=== PATIENT | male | born 1935 | race Caucasian/White ===

== ENCOUNTER 2018-01-10 08:21 | Day surgery (SDC) | payer MEDICARE, OTHER ==
[2018-01-09 09:40] VITALS: BMI 26.9
[2018-01-10 08:40] VITALS: BP 132/75; RESP 20; TEMP 98.1
[2018-01-10 09:54] VITALS: PULSE 50
== END 2018-01-10 09:40 | disposition home or self-care (01) ==
LOC: CATHCVL 08:21
PROVIDERS: ATTEND Radiology Diagnostic Radiology
DX: N39.0 Urinary tract infection, site not specified (principal); B96.20 Unspecified Escherichia coli [E. coli] as the cause of diseases classified elsewhere; Z16.24 Resistance to multiple antibiotics; K21.9 Gastro-esophageal reflux disease without esophagitis; I10 Essential (primary) hypertension; E03.9 Hypothyroidism, unspecified; N40.0 Benign prostatic hyperplasia without lower urinary tract symptoms; Z79.899 Other long term (current) drug therapy; Z53.8 Procedure and treatment not carried out for other reasons
CPT/HCPCS: 36571; 00000; C1751; 0

== ENCOUNTER → 2018-04-20 | Day surgery (SDC) | payer MEDICARE, OTHER | LOC: CATHCVL 11:18 | DX: A49.8 Other bacterial infections of unspecified site (principal) | CPT/HCPCS: 36569; 76937; C1751; 0 ==

== ENCOUNTER → 2018-05-16 | Outpatient (CLI) | payer MEDICARE, OTHER ==
[2018-05-16 12:41] LABS: Appearance,Urine Clear (Clear); Bilirubin,Urine Negative (Negative); Blood,Urine Negative (Negative); Color,Urine Yellow; Glucose,Urine (UA) Negative (Negative); Ketones,Urine Negative (Negative); Leukocyte Esterase,Urine Small (Negative); Mucus,Urine Rare /hpf; Nitrite,Urine Negative (Negative); PH, Urine 6.5 (5.0-8.0); Protein,Urine Negative (Negative); RBC,Urine 5 /hpf (0-5); Specific Gravity,Urine 1.016 (1.001-1.035); Urobilinogen,Urine <2.0 mg/dL (<2.0); WBC,Urine 14 /hpf (0-5)
== END | disposition home or self-care (01) ==
LOC: LABWHC1 12:11
PROVIDERS: ATTEND Internal Medicine Infectious Disease
DX: N39.0 Urinary tract infection, site not specified (principal)
CPT/HCPCS: 81001; 87086

== ENCOUNTER 2018-10-16 12:41 | Inpatient (IN) | payer MEDICARE, OTHER ==
[2018-10-16] MEDS ORDERED: KETOROLAC 60 MG/2 ML VIAL IM STA (14:07)
--- NOTE | 2018-10-16 14:24 | ED ---
Back Pain HPI <Raul Larkin - Last Filed: 10/16/18 20:21> - General Source: patient, RN notes reviewed, old records reviewed Limitations: no limitations <Alfred Chapa - Last Filed: 10/17/18 01:12> - General Chief Complaint: Back Pain/Injury Stated Complaint: Back pain - History of Present Illness Initial Comments: 82-year-old male patient with past medical history of hypertension, sciatica presents in ED with low back pain approximately 2 weeks. Patient denies a history of back pain. Patient denies any recent falls, heavy lifting, trauma. Patient has not been previously evaluated for this issue. Patient states that approximately 2 weeks his back began bothering him. Patient was previously ambulatory without assistance. Patient now uses walker to ambulate. Patient states that he ambulates he has pain in his lumbar spine. Patient states that the pain sometimes radiates to his right buttock when he walks. Patient denies any new weakness, paresthesias, loss of bowel and bladder control, saddle anesthesias. Patient denies any trauma. Patient denies history of IV drug use. Patient was previously treated for a UTI approximately 10 days ago, patient recently completed a prescription of Macrobid for this problem. Patient currently denies any urinary complaints. Patient states that he has been having some fevers and chills since onset of UTI. Patient currently afebrile in ED. Patient denies chest pain, shortness of breath, abdominal pain , nausea vomiting diarrhea. Systemic: Pt denies fatigue, myalgia, rash. Pt denies weakness, night sweats, weight loss. Neuro: Pt denies headache, visual disturbances, syncope or pre-syncope. HEENT: Pt denies ocular discharge or irritation, otalgia, rhinorrhea, pharyngitis or notable lymphadenopathy. Cardiopulmonary: Pt denies chest pain, SOB, heart palpitations, dyspnea on exertion. Abdominal/GI: Pt denies abdominal pain, n/v/d. : Pt denies dysuria, burning w/ urination, frequency/urgency. Denies new onset urinary or bowel incontinence. MSK: Pt denies myalgia, loss of strength or function in extremities. (Alfred Chapa) - Related Data Home Medications Medication Instructions Recorded Confirmed Atenolol [Tenormin] 25 mg PO DAILY 01/09/18 10/16/18 Cholecalciferol [Vitamin D3] 1,000 unit PO DAILY 01/09/18 10/16/18 Levothyroxine Sodium [Synthroid] 100 mcg PO DAILY 01/09/18 10/16/18 Pantoprazole Sodium [Protonix] 40 mg PO DAILY 01/09/18 10/16/18 Tamsulosin HCl [Flomax] 0.4 mg PO DAILY 01/09/18 10/16/18 Triamterene-Hctz 37.5-25Mg 1 cap PO DAILY 01/09/18 10/16/18 [Dyazide 37.5-25 Capsule] amLODIPine [Norvasc] 10 mg PO DAILY 01/09/18 10/16/18 Allergies Allergy/AdvReac Type Severity Reaction Status Date / Time No Known Allergies Allergy Verified 10/16/18 21:13 Review of Systems ROS Other: All systems not noted in ROS Statement are negative. <Raul Lakrin - Last Filed: 10/16/18 20:21> ROS Other: All systems not noted in ROS Statement are negative. <Alfred Chapa - Last Filed: 10/17/18 01:12> ROS Statement: Those systems with pertinent positive or pertinent negative responses have been documented in the HPI. Past Medical History Past Medical History: Cancer, GERD/Reflux, Hypertension, Prostate Disorder, Thyroid Disorder Additional Past Medical History / Comment(s): SKIN CANCER. CURRENT UTI History of Any Multi-Drug Resistant Organisms: Other MDRO Past Surgical History: Adenoidectomy, Hernia Repair, Joint Replacement, Prostate Surgery, Tonsillectomy Additional Past Surgical History / Comment(s): PARATHYROID SX. ESOPHAGEAL SX FOR ACHALASIA. VARICOSE VEIN SX. BILAT CATARAT SX. COLONOSCOPY Past Anesthesia/Blood Transfusion Reactions: No Reported Reaction Past Psychological History: No Psychological Hx Reported Smoking Status: Never smoker Past Alcohol Use History: Rare Past Drug Use History: None Reported - Past Family History Mother Family Medical History: Cancer Additional Family Medical History / Comment(s): COLON <Alfred Chapa - Last Filed: 10/17/18 01:12> General Exam <Raul Larkin - Last Filed: 10/16/18 20:21> Limitations: no limitations <Alfred Chapa - Last Filed: 10/17/18 01:12> - General Exam Comments Initial Comments: Constitutional: NAD, AOX3, Pt has pleasant affect. HEENT: NC/AT, trachea midline, neck supple, no lymphadenopathy. Posterior pharynx non erythematous, without exudates. External ears appear normal, without discharge. Mucous membranes moist. Eyes PERRLA, EOM intact. There is no scleral icterus. No pallor noted. Cardiopulmonary: RRR, no murmurs, rubs or gallops, no JVD noted. Lungs CTAB in anterior and posterior morgan. No peripheral edema. Abdominal exam: Abdomen soft and non-distended. Abdomen non-tender to palpation in all 4 quadrants. Bowel sounds active in LLQ. No hepatosplenomegaly. Ventral and umbilical hernia noted, patient states that these are baseline. Neuro: CN II-XII grossly intact. MSK: Cervical, thoracic, lumbar spine nontender to palpation, paraspinal areas also nontender to palpation. No erythema, ecchymoses, warmth, streaking. Patient psoas, quadriceps strength 5/5. Patient patellar/Achilles reflexes 2 out of 4. Posterior tibialis pulse +2 bilaterally. Patient ambulatory. Patient lower extremity sensation intact. Right straight leg raise positive. (Alfred Chapa) Course <Raul Larkin - Last Filed: 10/16/18 20:21> <Alfred Chapa - Last Filed: 10/17/18 01:12> Vital Signs 10/16/18 10/16/18 10/16/18 13:12 16:00 18:10 Temperature 98.5 F 100.1 F H 100.2 F H Pulse Rate 75 72 70 Respiratory 18 16 16 Rate Blood Pressure 134/66 96/50 96/59 O2 Sat by Pulse 99 96 98 Oximetry 10/16/18 10/16/18 10/16/18 21:00 22:00 22:54 Temperature 102 F H 100.8 F H Pulse Rate 83 81 83 Respiratory 16 16 18 Rate Blood Pressure 128/65 136/74 111/67 O2 Sat by Pulse 94 L 95 94 L Oximetry - Reevaluation(s) Reevaluation #1: 10/16/18 20:21 Patient reevaluated by myself, Dr. Larkin. Patient resting comfortably in bed. Patient reevaluated. Patient and family updated on results and plan. Case was discussed in detail with Dr. Minor, who will admit for hospital call. Case also discussed in detail with Dr. Hart, who will consult. He does agree with heparinization. I did review and agree with paulino findings. This includes all diagnostic interpretations and treatment plan. (Raul Larkin) Medical Decision Making - Lab Data Result diagrams: 10/16/18 15:30 10/16/18 15:30 <Raul Larkin - Last Filed: 10/16/18 20:21> - Lab Data Result diagrams: 10/16/18 15:30 10/16/18 15:30 - EKG Data -: EKG Interpreted by Me <Alfred Chapa - Last Filed: 10/17/18 01:12> - Medical Decision Making 83-year-old male patient presents to ED with approximately 2 weeks of lumbar back pain has gotten worse in the last 5 days. Patient denies any recent falls , trauma, strenuous lifting. Patient states that the lumbar back pain sometimes radiates to his right gluteal area while ambulating. Physical exam revealed Cervical, thoracic, lumbar spine nontender to palpation, paraspinal areas also nontender to palpation. No erythema, ecchymoses, warmth, streaking. Patient psoas, quadriceps strength 5/5. Patient patellar/Achilles reflexes 2 out of 4. Posterior tibialis pulse +2 bilaterally. Patient ambulatory. Patient lower extremity sensation intact. Right straight leg raise positive. Physical exam of HEENT, cardiopulmonary, neuro, abdominal does not reveal acute pathology. Urinalysis revealed 105 red cells. CBC and CMP were not impressive. A CT of the abdomen and pelvis with contrast was ordered. This EKG displayed a large prosthetic mass, a thrombus in the IVC, and lesion on the liver. Patient to be admitted to Dr. Minor. Patient was started on high-dose heparin for IVC thrombus. Patient states she did not have any chest pain, shortness of breath, pleuritic chest pain. A EKG displayed sinus rhythm with first-degree AV block, right bundle-branch block, but no other signs of pathology. Patient admitted in the hospital. Case discussed in depth with Dr. Minor. (Alfred Chapa) - Lab Data Lab Results 10/16/18 10/16/18 10/16/18 Range/Units 14:40 15:30 15:30 WBC 10.0 (3.8-10.6) k/uL RBC 4.12 L (4.30-5.90) m/uL Hgb 12.5 L (13.0-17.5) gm/dL Hct 36.2 L (39.0-53.0) % MCV 87.9 (80.0-100.0) fL MCH 30.4 (25.0-35.0) pg MCHC 34.6 (31.0-37.0) g/dL RDW 14.3 (11.5-15.5) % Plt Count 402 (150-450) k/uL Neutrophils % 82 % Lymphocytes % 9 % Monocytes % 6 % Eosinophils % 1 % Basophils % 0 % Neutrophils # 8.2 H (1.3-7.7) k/uL Lymphocytes # 0.9 L (1.0-4.8) k/uL Monocytes # 0.6 (0-1.0) k/uL Eosinophils # 0.1 (0-0.7) k/uL Basophils # 0.0 (0-0.2) k/uL PT (9.0-12.0) sec INR (<1.2) APTT (22.0-30.0) sec Sodium 136 L (137-145) mmol/L Potassium 4.5 (3.5-5.1) mmol/L Chloride 105 (98-107) mmol/L Carbon Dioxide 24 (22-30) mmol/L Anion Gap 7 mmol/L BUN 19 (9-20) mg/dL Creatinine 0.84 (0.66-1.25) mg/dL Est GFR (CKD-EPI)AfAm >90 (>60 ml/min/1.73 sqM) Est GFR (CKD-EPI)NonAf 81 (>60 ml/min/1.73 sqM) Glucose 108 H (74-99) mg/dL Calcium 9.5 (8.4-10.2) mg/dL Total Bilirubin 1.0 (0.2-1.3) mg/dL AST 52 (17-59) U/L ALT 79 H (21-72) U/L Alkaline Phosphatase 167 H (38-126) U/L Total Protein 6.8 (6.3-8.2) g/dL Albumin 3.0 L (3.5-5.0) g/dL Urine Color Yellow Urine Appearance Clear (Clear) Urine pH 6.5 (5.0-8.0) Ur Specific [place] 1.016 (1.001-1.035) Urine Protein 1+ H (Negative) Urine Glucose (UA) Negative (Negative) Urine Ketones Negative (Negative) Urine Blood Moderate H (Negative) Urine Nitrite Negative (Negative) Urine Bilirubin Negative (Negative) Urine Urobilinogen 2.0 (<2.0) mg/dL Ur Leukocyte Esterase Negative (Negative) Urine RBC 105 H (0-5) /hpf Urine WBC 3 (0-5) /hpf Ur Squamous Epith Cells <1 (0-4) /hpf Urine Mucus Few H (None) /hpf 10/16/18 Range/Units 15:37 WBC (3.8-10.6) k/uL RBC (4.30-5.90) m/uL Hgb (13.0-17.5) gm/dL Hct (39.0-53.0) % MCV (80.0-100.0) fL MCH (25.0-35.0) pg MCHC (31.0-37.0) g/dL RDW (11.5-15.5) % Plt Count (150-450) k/uL Neutrophils % % Lymphocytes % % Monocytes % % Eosinophils % % Basophils % % Neutrophils # (1.3-7.7) k/uL Lymphocytes # (1.0-4.8) k/uL Monocytes # (0-1.0) k/uL Eosinophils # (0-0.7) k/uL Basophils # (0-0.2) k/uL PT 10.5 (9.0-12.0) sec INR 1.1 (<1.2) APTT 24.7 (22.0-30.0) sec Sodium (137-145) mmol/L Potassium (3.5-5.1) mmol/L Chloride (98-107) mmol/L Carbon Dioxide (22-30) mmol/L Anion Gap mmol/L BUN (9-20) mg/dL Creatinine (0.66-1.25) mg/dL Est GFR (CKD-EPI)AfAm (>60 ml/min/1.73 sqM) Est GFR (CKD-EPI)NonAf (>60 ml/min/1.73 sqM) Glucose (74-99) mg/dL Calcium (8.4-10.2) mg/dL Total Bilirubin (0.2-1.3) mg/dL AST (17-59) U/L ALT (21-72) U/L Alkaline Phosphatase (38-126) U/L Total Protein (6.3-8.2) g/dL Albumin (3.5-5.0) g/dL Urine Color Urine Appearance (Clear) Urine pH (5.0-8.0) Ur Specific [place] (1.001-1.035) Urine Protein (Negative) Urine Glucose (UA) (Negative) Urine Ketones (Negative) Urine Blood (Negative) Urine Nitrite (Negative) Urine Bilirubin (Negative) Urine Urobilinogen (<2.0) mg/dL Ur Leukocyte Esterase (Negative) Urine RBC (0-5) /hpf Urine WBC (0-5) /hpf Ur Squamous Epith Cells (0-4) /hpf Urine Mucus (None) /hpf - EKG Data EKG Comments: Ventricular rate 76, RI interval 2:30, QRS 152, QT/QTC 392/441. Sinus rhythm with first-degree AV block. Right bundle branch block. No concerns for acute ischemia. (Alfred Chapa) Disposition <Raul Larkin - Last Filed: 10/16/18 20:21> <Alfred Chapa - Last Filed: 10/17/18 01:12> Clinical Impression: Inferior vena cava thromboembolism Disposition: ADMITTED IP TO THIS [facility] Condition: Good
[2018-10-16 15:04] LABS: Appearance,Urine Clear (Clear); Bilirubin,Urine Negative (Negative); Blood,Urine Moderate (Negative); Color,Urine Yellow; Glucose,Urine (UA) Negative (Negative); Ketones,Urine Negative (Negative); Leukocyte Esterase,Urine Negative (Negative); Mucus,Urine Few /hpf; Nitrite,Urine Negative (Negative); PH, Urine 6.5 (5.0-8.0); Protein,Urine 1+ (Negative); RBC,Urine 105 /hpf (0-5); Specific Gravity,Urine 1.016 (1.001-1.035); Squamous Epithelial Cell,Urine <1 /hpf (0-4)
--- NOTE | 2018-10-16 15:23 | XR ---
EXAM TYPE: LUMBAR SPINE X RAY SERIES COMPARISON: NONE HISTORY: Lower back pain TECHNIQUE: 4 views are submitted. FINDINGS: Alignment is anatomic. The pedicles are intact. The transverse processes are intact. There is grad e 1 anterolisthesis L4 and L5 with multilevel moderate degenerative disc disease and severe changes a t L5-S1. Facet arthropathy noted with most marked findings at L4-5 and L5-S1. Hypertrophic spurring a nteriorly noted. Nonspecific punctate calcifications in the left upper quadrant could be related to splenic granuloma or possibly the pancreas. Diffuse osteopenia noted. IMPRESSION: 1. Multilevel degenerative disc disease and facet arthropathy with grade 1 anterolisthesis L4 on L5.
[2018-10-16] MEDS ORDERED: SODIUM CHLORIDE 0.9% 500 ML 500 ML IV STA ×2 (15:55→16:35)
[2018-10-16] MEDS ORDERED: SODIUM CHLORIDE 0.9% 1,000 ML IV STA (15:55)
[2018-10-16 15:56] LABS: Basophils % (A) 0 %; Eosinophils # (A) 0.1 k/uL (0-0.7); Eosinophils % (A) 1 %; HCT 36.2 % (39.0-53.0); HGB 12.5 gm/dL (13.0-17.5); Lymphocytes # (A) 0.9 k/uL (1.0-4.8); Lymphocytes % (A) 9 %; MCH 30.4 pg (25.0-35.0); MCHC 34.6 g/dL (31.0-37.0); MCV 87.9 fL (80.0-100.0); Monocytes # (A) 0.6 k/uL (0-1.0); Monocytes % (A) 6 %; Neutrophils # (A) 8.2 k/uL (1.3-7.7); Neutrophils % (A) 82 %; Platelet Count 402 k/uL (150-450); RBC 4.12 m/uL (4.30-5.90); RDW 14.3 % (11.5-15.5)
[2018-10-16 16:05] LABS: ALT 79 U/L (21-72); AST 52 U/L (17-59); Alkaline Phosphatase 167 U/L (38-126); Anion Gap 7 mmol/L; Blood Urea Nitrogen 19 mg/dL (9-20); Calcium 9.5 mg/dL (8.4-10.2); Carbon Dioxide 24 mmol/L (22-30); Chloride 105 mmol/L (98-107); Glucose 108 mg/dL (74-99); Potassium 4.5 mmol/L (3.5-5.1); Sodium 136 mmol/L (137-145); Total Protein 6.8 g/dL (6.3-8.2)
--- NOTE | 2018-10-16 18:24 | CT ---
EXAMINATION TYPE: CT abdomen pelvis w con DATE OF EXAM: 10/16/2018 COMPARISON: None HISTORY: Back pain. CT DLP: 980.6 mGycm Automated exposure control for dose reduction was used. TECHNIQUE: Helical acquisition of images was performed from the lung bases through the pelvis. CONTRAST: Performed without Oral Contrast and with IV Contrast, patient injected with 100 mL of Isovu e M300. FINDINGS: LUNG BASES: No significant abnormality is appreciated. LIVER: There is moderate heterogeneity throughout the liver, with a 4 cm rounded subtle lesion high i n the posterior segment of the right hepatic lobe. Would suggest MRI characterization, without and wi th contrast. BILIARY SYSTEM: Negative PANCREAS: No significant abnormality is seen. SPLEEN: No significant abnormality is seen. ADRENALS: No significant abnormality is seen. KIDNEYS: No significant abnormality is seen. FREE AIR: No free air is visualized. RETROPERITONEAL ADENOPATHY: None visualized REPRODUCTIVE ORGANS: The prostate is markedly enlarged and heterogeneous, measuring 8 cm diameter. Th e urinary bladder is moderately-markedly distended, rising up out of the pelvis to nearly the umbilic us level. URINARY BLADDER: No significant abnormality is seen. PELVIC ADENOPATHY: None visualized. OSSEOUS STRUCTURES: No acute finding. BOWEL: No significant abnormality is seen. VASCULATURE: There is pre-occlusive/occlusive filling defect throughout the lumen of the left common iliac vein, the lowermost IVC, and throughout the right common iliac vein. Venous Doppler ultrasound, or MRI, characterization can be complimentary in the workup of this patient - to determine the full extent of the thrombus burden within the pelvic venous structures. IMPRESSION: 1) IVC AND BILATERAL ILIAC VENOUS THROMBUS. 2) BLADDER OUTLET OBSTRUCTION PATTERN. 3) 4 CM LIVER LESION. Results discussed with the ordering provider just now.
--- NOTE | 2018-10-16 19:48 | XR ---
EXAMINATION: XR chest 2V DATE AND TIME: 10/16/2018 6:36 PM CLINICAL INDICATION: Pain TECHNIQUE: PA and lateral COMPARISON: None. FINDINGS: The lungs are clear. The pleural spaces are negative. The cardiac silhouette is not enlarged. The remainder of the mediastinal silhouette is unremarkable. The skeletal structures and soft tissues are negative for acute findings. IMPRESSION: NO ACUTE PROCESS.
[2018-10-16] MEDS ORDERED: HEPARIN SODIUM,PORCINE 5,000 UNIT/ML 1 ML VIAL IV ONE (20:14)
[2018-10-16] MEDS ORDERED: HYDROmorphone 1 MG/ML 1 ML SYRINGE IVP PRN (20:17)
[2018-10-16] MEDS ORDERED: NALOXONE 0.4 MG/ML 1 ML VIAL IV PRN (20:17)
[2018-10-16] MEDS ORDERED: MORPHINE SULFATE 4 MG/ML SYRINGE IV STA (20:20)
[2018-10-16] MEDS: HEPARIN SOD,PORK IN 0.45% NACL 25,000 UNIT in 0.45% NACL 1 500ML.BAG IV SCH (21:03)
[2018-10-16 21:23] LABS: INR 1.1 (<1.2); Partial Thromboplastin Time 24.7 sec (22.0-30.0); Prothrombin Time 10.5 sec (9.0-12.0)
[2018-10-16] MEDS ORDERED: ALPRAZolam 0.25 MG TAB PO PRN (21:26)
[2018-10-16] MEDS ORDERED: MELATONIN 3 MG TABLET PO PRN (21:26)
[2018-10-16] MEDS ORDERED: TEMAZEPAM 15 MG CAP PO PRN (21:26)
[2018-10-16] MEDS ORDERED: ACETAMINOPHEN TAB 325 MG TAB PO STA (21:42)
--- NOTE | 2018-10-16 22:26 | US ---
US VENOUS DOPPLER DUPLEX BILATERAL LOWER EXTREMITY DATE OF EXAM: 10/16/2018 8:34 PM COMPARISON: NONE CLINICAL HISTORY: Pain. SIDE PERFORMED: Bilateral TECHNIQUE: The lower extremity deep venous system is examined utilizing real time linear array sonog marsha with graded compression, doppler sonography and color-flow sonography. VESSELS IMAGED: External Iliac Vein (EIV) Common Femoral Vein Deep Femoral Vein Greater Saphenous Vein * Femoral Vein Popliteal Vein Small Saphenous Vein * Proximal Calf Veins (* superficial vessels) FINDINGS: Grayscale, color doppler, spectral doppler imaging performed of the deep veins of the lower extremities. There is normal flow, compressibility, vascular waveforms. IMPRESSION: NEGATIVE FOR DVT, BILATERAL LOWER EXTREMITIES.
--- NOTE | 2018-10-16 22:34 | HP ---
HISTORY AND PHYSICAL CHIEF COMPLAINT: Back pain. HISTORY OF PRESENT ILLNESS: This 83-year-old gentleman with a past history of hypertension, history of prostate disorder, history of skin cancer, history of parathyroid surgery, esophageal surgery for achalasia, being followed by Dr. Rodrigues in [facility], was complaining of UTI for the last 2 weeks. Patient is on Macrobid for the last 1 week. Patient is also complaining of back pain in the lower part of the back, radiating to the right side. Because of multiple difficulties, the patient came to [facility] and was admitted for evaluation and treatment. In the [facility] Emergency Room , the patient underwent a CT scan of the abdomen and pelvis, showed IVC and bilateral iliac vein thrombosis, bladder outlet obstruction, and 4 cm liver lesion also. The patient was admitted for further evaluation and treatment. There is no history of fevers or rigors. No history of headache, loss of consciousness, seizures. PAST MEDICAL HISTORY: History of GERD, hypertension, history of prostate disorder, history of adenoidectomy, parathyroidectomy surgery, esophageal surgery for achalasia. MEDICATIONS: Prior to admission include home medications of: 1. Flomax 0.4 daily. 2. Protonix 40 mg p.o. daily. 3. Norvasc 10 mg p.o. daily. 4. Dyazide 37.5/25 p.o. daily. 5. Synthroid 100 mcg daily. 6. Vitamin D 3000 units. 7. Tenormin 25 mg daily. ALLERGIES: None. FAMILY HISTORY: History of colon cancer in the family. SOCIAL HISTORY: No history of smoking. Occasional alcohol intake. REVIEW OF SYSTEMS: ENT: No diminished hearing or vision. CARDIOVASCULAR: No angina. RESPIRATORY: As mentioned earlier. GI: No nausea. : No dysuria. NERVOUS SYSTEM: As mentioned. ALLERGY/IMMUNOLOGY: No asthma or hayfever. MUSCULOSKELETAL: As mentioned. HEMATOLOGY: As mentioned earlier. ENDOCRINE: No history of hypothyroidism. No history of diabetes. CONSTITUTIONAL: As mentioned earlier. DERMATOLOGY: As mentioned. PSYCH: As mentioned. PHYSICAL EXAMINATION: Alert, oriented x3. Pulse is 70, blood pressure 90/59, respirations 16, temperature 100.2, pulse ox 98% on room air. HEENT: Conjunctivae normal. Oral mucosa moist. NECK: No jugular venous distention. No lymph node enlargement. CARDIOVASCULAR SYSTEM: S1, S2 muffled. RESPIRATORY SYSTEM: Breath sounds diminished at the bases. Few scattered rhonchi and crackles. ABDOMEN: Soft, no mass palpable. Mild diffuse discomfort in the , otherwise no guarding or rigidity. No mass. No ascites. LEGS: No edema, no swelling. NERVOUS SYSTEM: Higher functions as mentioned earlier. Moves all 4 limbs. No focal motor deficits. LYMPHATICS: No lymph nodes palpable in the neck, axillae or groin. SKIN: No rashes. BACK: Minimal tenderness in the lower part. Sores on the legs. Diffuse minimal wasting also present. LABS: WBC 10, hemoglobin 12.5, sodium 136. UA shows 105 RBCs. No WBC. ASSESSMENT: 1. 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 2. Back pain, for evaluation. 3. Fever, for evaluation. 4. Increased ALT and alkaline phosphatase. 5. 4 cm liver lesion for evaluation. 6. Hyponatremia. 7. History of recent urinary tract infection, on antibiotics. 8. Gastroesophageal reflux disease. 9. Hypertension. 10.History of prostate disorder. 11.History of hypothyroidism. 12.History of adenoidectomy. 13.History of degenerative joint disease. 14.History of parathyroid surgery. 15.History of esophageal surgery for Dr. mendoza. 16.History of varicose veins. 17.Bilateral cataracts. 18.FULL CODE. RECOMMENDATIONS AND DISCUSSION: This 83-year-old gentleman who presented with multiple complex medical issues, we will monitor the patient closely, continue the current management and symptomatic treatment. At this time I recommend continue with the current medications. We will obtain the cultures and initiate empiric antibiotics. Otherwise also obtain Hematology/ Oncology evaluation for further evaluation. Otherwise, IV heparin. Prognosis guarded because of multiple complex medical issues. Further recommendations to follow. The liver lesion also will need continued followup also. Prognosis guarded. Further recommendations will be made depending on clinical course. MMODL / IJN: [id number] / [facility]
[2018-10-17 04:06] VITALS: BMI 27.8
[2018-10-17] MEDS: HEPARIN SODIUM,PORCINE 5,000 UNIT/ML 1 ML VIAL IV PRN ×3 (04:23→21:51)
[2018-10-17] MEDS: LEVOTHYROXINE 100 MCG TAB PO SCH (06:08)
[2018-10-17] MEDS: HYDROcodone/APAP 5-325MG 1 EACH TAB PO PRN ×3 (06:08→20:33)
[2018-10-17] MEDS: amLODIPine 10 MG TAB PO SCH (09:43)
[2018-10-17] MEDS: PANTOPRAZOLE 40 MG TABLET PO SCH (09:43)
[2018-10-17] MEDS: CHOLECALCIFEROL 1,000 UNIT TAB PO SCH (09:44)
[2018-10-17] MEDS: TRIAMTERENE-HCTZ 37.5-25MG 1 EACH CAP PO SCH (09:44)
[2018-10-17] MEDS: ACETAMINOPHEN TAB 325 MG TAB PO PRN ×2 (09:44→23:57)
[2018-10-17] MEDS: ATENOLOL 25 MG TAB PO SCH (09:44)
[2018-10-17] MEDS: TAMSULOSIN 0.4 MG CAP.ER.24H PO SCH (09:44)
[2018-10-17 10:07] LABS: Basophils % (A) 0 %; Eosinophils % (A) 0 %; HCT 32.7 % (39.0-53.0); HGB 10.9 gm/dL (13.0-17.5); Lymphocytes # (A) 0.9 k/uL (1.0-4.8); Lymphocytes % (A) 11 %; MCH 29.6 pg (25.0-35.0); MCHC 33.3 g/dL (31.0-37.0); MCV 88.9 fL (80.0-100.0); Mean Platelet Volume 6.9; Monocytes # (A) 0.4 k/uL (0-1.0); Monocytes % (A) 5 %; Neutrophils # (A) 6.7 k/uL (1.3-7.7); Neutrophils % (A) 81 %; Platelet Count 343 k/uL (150-450); RBC 3.67 m/uL (4.30-5.90); RDW 14.2 % (11.5-15.5); WBC 8.2 k/uL (3.8-10.6)
[2018-10-17 10:37] LABS: ALT 62 U/L (21-72); AST 38 U/L (17-59); Albumin 2.5 g/dL (3.5-5.0); Alkaline Phosphatase 136 U/L (38-126); Anion Gap 7 mmol/L; Blood Urea Nitrogen 16 mg/dL (9-20); Calcium 8.9 mg/dL (8.4-10.2); Carbon Dioxide 24 mmol/L (22-30); Chloride 104 mmol/L (98-107); Glucose 110 mg/dL (74-99); Potassium 4.2 mmol/L (3.5-5.1); Sodium 135 mmol/L (137-145); Total Bilirubin 1.3 mg/dL (0.2-1.3); Total Protein 5.9 g/dL (6.3-8.2)
[2018-10-17] MEDS: HEPARIN SOD,PORK IN 0.45% NACL 25,000 UNIT in 0.45% NACL 1 500ML.BAG IV SCH (12:05)
[2018-10-17] MEDS: SODIUM CHLORIDE 0.9% 1,000 ML IV SCH (14:00)
[2018-10-17 15:40] LABS: Appearance,Urine Cloudy (Clear); Bacteria,Urine Occasional /hpf; Bilirubin,Urine Negative (Negative); Blood,Urine Small (Negative); Color,Urine Yellow; Glucose,Urine (UA) Negative (Negative); Ketones,Urine Negative (Negative); Leukocyte Esterase,Urine Moderate (Negative); Mucus,Urine Rare /hpf; Nitrite,Urine Negative (Negative); Protein,Urine Negative (Negative); RBC,Urine 5 /hpf (0-5); Specific Gravity,Urine 1.012 (1.001-1.035); WBC,Urine 58 /hpf (0-5)
[2018-10-17] MEDS: MEROPENEM 1 GM in SODIUM CHLORIDE 0.9% 100 ML IVPB SCH ×2 (16:58→23:56)
[2018-10-17] MEDS: HYDROmorphone 1 MG/ML 1 ML SYRINGE IVP PRN (17:38)
--- NOTE | 2018-10-17 18:39 | PN ---
PROGRESS NOTE DATE OF SERVICE: 10/17/2018 This 83-year-old gentleman admitted with back pain, had significant thrombosis of the inferior vena cava and bilateral iliac veins also. The patient is on IV heparin. Patient also had multiple other medical issues including liver lesion. Patient also had some fever also. Cultures are pending at this time. The patient is being closely monitored. The pain is slightly better with medications. Patient also had back pain, significant back pain also. UA showed evidence of UTI. PAST MEDICAL HISTORY: Reviewed. REVIEW OF SYSTEMS: CARDIOVASCULAR: No angina. RESPIRATORY: As mentioned. GI: As mentioned earlier. : No dysuria. CENTRAL NERVOUS SYSTEM: No numbness, weakness. CURRENT MEDICATIONS ARE: Reviewed and include: 1. Tylenol 650 q.6h p.r.n. 2. [place] 5 mg p.o. daily. 3. Xanax 0.5 t.i.d. 4. Norvasc 10 mg daily. 5. Tenormin 25 mg. 6. Vitamin D 3000 daily. 7. Heparin drip. 8. Dilaudid 0.25 mg q.3 p.r.n. 9. Synthroid. 10.Melatonin. 11.Meropenem 1 g IV q.8h. 12.Narcan. 13.Protonix. 14.Flomax. 15.Restoril. 16.Dyazide. PHYSICAL EXAMINATION: Alert and oriented x3. Pulse is 68. Blood pressure 105/60, respirations 17, temperature 101.3, pulse ox 98% on room air. HEENT: Conjunctivae normal. Oral mucosa moist. Neck is no jugular venous distention. No carotid bruit. No lymph node enlargement. CARDIOVASCULAR SYSTEM: S1, S2 muffled. RESPIRATORY SYSTEM: Breath sounds diminished at the bases. A few scattered rhonchi and crackles. ABDOMEN: Soft, nontender. No mass palpable. Legs: No edema. No swelling. NERVOUS SYSTEM: Higher functions as mentioned earlier. Moves all four limbs. No focal or motor deficits. Lymphatics: No lymph nodes palpable in the neck, axillae or groin. Skin: No ulcer, rash, bleeding. LABS: Labs at this time: WBC 8.2, hemoglobin 10.9, and APTT 36.2. Sodium 135, albumin is 2.5 UA noted. ASSESSMENT: 1. Acute deep vein thrombosis of the IVC and as well as bilateral iliac vein thrombosis. 2. Back pain for evaluation. 3. Acute urinary tract infection with fever possibly. 4. Increased ALT, alkaline phosphatase. 5. 4 cm liver lesion for evaluation. 6. Hyponatremia. 7. History of recent urinary tract infection on antibiotics. 8. History of gastroesophageal reflux disease. 9. Hypertension. 10.History of prostate disorder. 11.History of hypothyroidism. 12.History of adenoidectomy. 13.History of degenerative joint disease. 14.History of parathyroid surgery. 15.History of esophageal surgery for achalasia. 16.History of varicose veins. 17.Bilateral cataracts. 18.FULL CODE. RECOMMENDATIONS AND DISCUSSION: In this 83-year-old gentleman who presented with multiple complex medical issues, we will monitor the patient closely. Continue the current medications, management and symptomatic treatment. Otherwise, at this time, continue with IV heparin. I would also recommend IV Rocephin for antibiotics. Follow the cultures. Follow closely with multiple consultants. Also recommend evaluation by Dr. Kirby. MRI of the back and the liver also will be ordered. I would also recommend a CT angio chest also ordered and guarded prognosis because of multiple complex medical issues. Further recommendations to follow. See orders for details. MMODL / IJN: [id number] /
--- NOTE | 2018-10-17 20:28 | MR ---
EXAMINATION TYPE: MR lssandra/sacrum wo con DATE OF EXAM: 10/17/2018 COMPARISON: None HISTORY: Back pain TECHNIQUE: Multiplanar, multisequence imaging of the lumbar spine is performed without IV contrast. FINDINGS: Lumbar vertebra have normal alignment. There is sacral cyst at S2 level. There is slight na rrowing of the lumbar disc spaces. There is a large posterior L4-5 lumbar disc herniation with elevation of the posterior longitudinal l igament. There is resultant moderately severe lumbar spinal stenosis at L4-5. There is hypertrophic m ultilevel lumbar facet arthropathy. There is lateral recess stenosis at L3-4 L2-3 due to facet diseas e. There is posterior mild disc herniation at L1-2 L3-4. There is narrowing of the lumbar neural fora eliu at L4-5 L5-S1 due to facet arthropathy and disc space narrowing. There is no compression fractur e. There is no lumbar paraspinal mass. The sacroiliac joints appear intact. I see no sacral bony dest ructive process. Sacral segments have normal alignment. There is a markedly dilated urinary bladder. Bladder measures 15 cm in height. IMPRESSION: Multilevel spondylosis. There is large extruded posterior disc herniation at L4-5 with moderately sev ere lumbar spinal stenosis. No fracture. Mild lateral recess stenosis at L2-3. There is mild spinal s tenosis at L3-4. Small sacral cysts at S2 level. Markedly enlarged prostate that measures 7.5 cm. Dilated urinary bladder consistent with chronic blad joe outlet obstruction. No fracture seen.
--- NOTE | 2018-10-17 20:42 | CT ---
EXAMINATION TYPE: CT angio chest DATE OF EXAM: 10/17/2018 7:07 PM COMPARISON: None HISTORY: chest pain, SOB CT DLP: 423.3 mGycm Automated exposure control for dose reduction was used. CONTRAST: CTA scan of the thorax is performed with IV Contrast, patient injected with 60 mL of Isovue 370, pulm onary embolism protocol. . There are 3-D post processed images. FINDINGS: There is infiltrate and atelectasis at the lung bases. There are small bilateral pleural effusions. T here is no pericardial effusion. Heart is top normal in size. There is probably fatty infiltration of the liver. Spleen appears normal. There is no adrenal mass. Kidneys show no hydronephrosis. There are large central pulmonary arteries. I see no filling defects in the pulmonary arteries. There are no hilar masses. There is no mediastinal adenopathy. 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 Aorti c arch measures up to 4.4 cm. Descending thoracic aorta measures 3.7 cm. There is spurring in the tho racic spine. I see no bony destructive process. IMPRESSION: NO EVIDENCE OF PULMONARY EMBOLISM. ENLARGED PULMONARY ARTERIES CONSISTENT WITH PULMONARY HYPERTENSION . MILD CARDIOMEGALY. THORACIC AORTIC ANEURYSM. THERE IS INFILTRATE AND ATELECTASIS AND PLEURAL FLUID AT THE LUNG BASES BILATERALLY.
--- NOTE | 2018-10-17 20:57 | MR ---
EXAMINATION TYPE: MR liver wo/w con DATE OF EXAM: 10/17/2018 COMPARISON: CT scan yesterday HISTORY: CONTRAST: Standard multiplanar, multisequence MRI departmental protocol utilizing 7.5 mL intravenous gadolinium contrast. FINDINGS: There is a 4.4 cm somewhat rounded poorly marginated area of slight increased signal in the superior right lobe of the liver. There is a second similar appearing lesion in the central right lo be of the liver that measures 2.3 cm. The bile ducts are not dilated. Spleen appears normal. There is no evidence of a pancreatic mass. There are scattered cysts in the body and tail of the pancreas dominic t measure up to 1.5 cm. The gallbladder appears normal. There is no adrenal mass. Kidneys show satisfactory contrast opacification. There is no hydronephrosi s. There is a 1 cm cortical cyst medial left kidney. There is no evidence of abdominal para-aortic ad enopathy. There is no sign of ascites. There is a nonenhancing 1.5 cm low signal focus in the cortex upper pole right kidney. This could be an atypical cyst. I see no suspicious renal mass. The contrast images show early enhancement of the 2 liver lesions. There is rapid washout on the rafa yed contrast images. There is patchy infiltrate and atelectasis at the lung bases. IMPRESSION: There is demonstration of 2 lesions in the liver. These have early enhancement and rapid washout. Thi s is suspicious for malignancy. This could be metastatic disease. Follow-up is recommended. These do not have features of hemangioma. There is increased pleural fluid and atelectasis at the lung bases compared to CT scan yesterday. Multiple variable sized cysts in the pancreas consistent with chronic pancreatitis and multiple pseud ocysts. Cystic pancreatic tumor cannot be entirely excluded.
--- NOTE | 2018-10-17 22:11 | P.CONS ---
History of Present Illness - Reason for Consult Consult date: 10/17/18 Liver Mass IVC Clot Requesting physician: Alfred Chapa - Chief Complaint Lower Back Pain, Right SIded Weakness - History of Present Illness Griffin is a pleasant 83 year old male who was in his regular state of health up until a few weeks ago. According to him and ( providing much of history ) they took a [address] to [place] approximately 3 weeks ago and stopped every 100 miles and got out of car and walking. He was feeling good and fairly active for 83. He has a known history of BPH and enlarged prostate, underwent multiple prostate biopsies without evidence of malignancy. He underwent a procedure approximately a year ago for his severe urimary retention (requiring self catherizations) and recurrent UTIs. Since a year ago has not had any issues with urination, has not required self catherization and has not been treated for UTI. THey returned from [place] about two weeks ago and he was seen by general practitioner and treated for UTI with Macrobid. His states about 2 days into the macrobid he became more weak, and started to complain of lower back pain. THis continued to progress along with abdominal discomfort and then inability to ambulate without assistance. HIs son also at bedside states he needed to help his father lift his right leg up as he could not lift it to get into car two days ago to come to hospital. Durining intitial evaluation at the hospital CT scan of abdomen and pelvis revealed new thrombus in IVC and Bilateral iliac veins. Heparin drip was initated. ALso on CT suspicious lesion 4cm was identified in liver. BLE dopplers were negative for DVT. Awaiting CTA of Chest to assess for Pulmonary Embolism. On Exam patient is very weak in Lower extremities. RLE was weaker, although left lower extremity appears to have decreased flexion and range of motion. He is laying in bed and states he feels too weak to move. He has had a significant low appetite in the past week, and liekly lost weight from not taking in his normal PO intake. Denies fevers or chills, cough. He complains of lower back pain the radiates down his right leg. Review of Systems A 14 point review of systems assessed and completed and all negative except HPI Past Medical History Past Medical History: Cancer, GERD/Reflux, Hypertension, Prostate Disorder, Thyroid Disorder Additional Past Medical History / Comment(s): SKIN CANCER. CURRENT UTI History of Any Multi-Drug Resistant Organisms: Other MDRO Past Surgical History: Adenoidectomy, Hernia Repair, Joint Replacement, Prostate Surgery, Tonsillectomy Additional Past Surgical History / Comment(s): PARATHYROID SX. ESOPHAGEAL SX FOR ACHALASIA. VARICOSE VEIN SX. BILAT CATARAT SX. COLONOSCOPY Past Anesthesia/Blood Transfusion Reactions: No Reported Reaction Past Psychological History: No Psychological Hx Reported Smoking Status: Never smoker Past Alcohol Use History: Rare Past Drug Use History: None Reported - Past Family History Mother Family Medical History: Cancer Additional Family Medical History / Comment(s): COLON Medications and Allergies Home Medications Medication Instructions Recorded Confirmed Type Atenolol [Tenormin] 25 mg PO DAILY 01/09/18 10/16/18 History Cholecalciferol [Vitamin D3] 1,000 unit PO DAILY 01/09/18 10/16/18 History Levothyroxine Sodium [Synthroid] 100 mcg PO DAILY 01/09/18 10/16/18 History Pantoprazole Sodium [Protonix] 40 mg PO DAILY 01/09/18 10/16/18 History Tamsulosin HCl [Flomax] 0.4 mg PO DAILY 01/09/18 10/16/18 History Triamterene-Hctz 37.5-25Mg 1 cap PO DAILY 01/09/18 10/16/18 History [Dyazide 37.5-25 Capsule] amLODIPine [Norvasc] 10 mg PO DAILY 01/09/18 10/16/18 History Allergies Allergy/AdvReac Type Severity Reaction Status Date / Time No Known Allergies Allergy Verified 10/16/18 21:13 Physical Exam Vitals: Vital Signs Temp Pulse Pulse Resp BP BP Pulse Ox 10/17/18 08:30 100.4 F H 71 15 115/58 90 L 10/17/18 04:00 98.7 F 71 16 113/57 97 10/16/18 23:40 98.7 F 74 16 104/56 93 L 10/16/18 22:54 100.8 F H 83 18 111/67 94 L 10/16/18 22:00 81 16 136/74 95 10/16/18 21:00 102 F H 83 16 128/65 94 L 10/16/18 18:10 100.2 F H 70 16 96/59 98 10/16/18 16:00 100.1 F H 72 16 96/50 96 10/16/18 13:12 98.5 F 75 18 134/66 99 Intake and Output 10/16/18 10/17/18 10/17/18 22:59 06:59 14:59 Intake Total 1238.345 Balance 1238.345 Intake: Intake, IV Titration 838.345 Amount Heparin Sod,Pork in 0.45% 238.345 NaCl 25,000 unit In 0.45 % NaCl 1 500ml.bag @ 18 UNITS/KG/HR 32.65 mls/hr IV .[id number] DIPESH Rx#: [id number] Sodium Chloride 0.9% 1, 600 000 ml @ 75 mls/hr IV . [id number] STA Rx#:[id number] Oral 400 Other: Voiding Method Urinal Urinal Weight 90.5 kg - Constitutional General appearance: cooperative, no acute distress, thin - EENT Eyes: EOMI, dentition normal, normal appearance ENT: hard of hearing, NA/AT, normal oropharynx - Neck supple, no cervical lymphadenopathy Neck: normal ROM - Cardiovascular Rhythm: regular Heart sounds: normal: S1, S2 - Gastrointestinal Bloated tender to palpation, decreased bowel sounds General gastrointestinal: distended, tenderness - Integumentary Integumentary: pale - Neurologic Neurologic: CNII-XII intact - Musculoskeletal Musculoskeletal: generalized weakness, right sided weakness - Psychiatric Lethargic but answers appropriately when questions asked. Psychiatric: A&O x's 3, appropriate affect Results CBC & Chem 7: 10/17/18 09:46 10/17/18 09:46 Labs: Abnormal Lab Results - Last 24 Hours (Table) 10/16/18 10/16/18 10/16/18 Range/Units 14:40 15:30 15:30 RBC 4.12 L (4.30-5.90) m/uL Hgb 12.5 L (13.0-17.5) gm/dL Hct 36.2 L (39.0-53.0) % Neutrophils # 8.2 H (1.3-7.7) k/uL Lymphocytes # 0.9 L (1.0-4.8) k/uL APTT (22.0-30.0) sec Sodium 136 L (137-145) mmol/L Glucose 108 H (74-99) mg/dL ALT 79 H (21-72) U/L Alkaline Phosphatase 167 H (38-126) U/L Albumin 3.0 L (3.5-5.0) g/dL Urine Protein 1+ H (Negative) Urine Blood Moderate H (Negative) Urine RBC 105 H (0-5) /hpf Urine Mucus Few H (None) /hpf 10/17/18 10/17/18 10/17/18 Range/Units 02:11 09:46 09:46 RBC 3.67 L (4.30-5.90) m/uL Hgb 10.9 L (13.0-17.5) gm/dL Hct 32.7 L (39.0-53.0) % Neutrophils # (1.3-7.7) k/uL Lymphocytes # 0.9 L (1.0-4.8) k/uL APTT 41.1 H 36.8 H (22.0-30.0) sec Sodium (137-145) mmol/L Glucose (74-99) mg/dL ALT (21-72) U/L Alkaline Phosphatase (38-126) U/L Albumin (3.5-5.0) g/dL Urine Protein (Negative) Urine Blood (Negative) Urine RBC (0-5) /hpf Urine Mucus (None) /hpf Microbiology - Last 24 Hours (Table) 10/16/18 14:40 Urine Culture - Preliminary Urine,Voided Assessment and Plan Plan: Assessment and Recommendations: 1. New IVC Thrombosis: - BLE Dopplers negative for DVT - CTA negative for Pulmonary EMbolism although revealed bilateral atelectesis, pul htn, and infiltrates 2. Liver Lesions: Concern for malignancy - MRI of the liver reviewed: 2.5cm and 4.0cm liver lesions concerning for a metastatic process, Scattered cystic appearing pancreatic body and tail - Will check a Ca19-9, PSA (Known Enlarged prostate with multiple biopsies all neg in past) - Interventional Radiology consultation for Biosy of Liver Lesions 3. Lower extremity weakness and lower back pain - MRI Reviewed and revealed Large Herniated disc Protrusion L4L5 - ? COnsultation ortho-spine palliative intervention PLan: - COntinue on anticoagulation therapy, will require as outpatient - Await Ca-19-9 and Pathology after biopsy of liver, then can convert to PO anticoagualtion therapy - Pulmonary consultation resonable regarding bilateral atelectasis and infiltrated - Incentive spirometer to bedside and increase activity - Physical therapy to consult and increase activity
--- NOTE | 2018-10-17 23:36 | P.CONS ---
History of Present Illness - Reason for Consult Consult date: 10/17/18 - Chief Complaint Increasing weakness - History of Present Illness 83-year-old male resents to Hospital with increasing weakness, increasing pain to his back and difficulty lifting his leg. The family relates the patient had been on a trip to [place] with frequent stops for ambulation along the way and the return. Had no great difficulties while he was there. He is normally a very active 83-year-old gentleman. However short before admission he started to have a decline of the status partly because of the severe back pain and increasing weakness to the leg. Family finally brought to the emergency center at which point in time it was found that he was acutely ill with a temperature 101.3 and severe back pain. His back pain is being treated and because of this he had imaging studies. 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 Further workup is in process and is being seen by hematology oncology. Because of the difficulties scanning was performed revealing evidence of lesions within the liver which are very concerning given the inferior vena cava thrombosis. The patient is known to the service from his difficulties of urinary tract infection with resistant E. coli from earlier this year. The family physician was concerned about a urinary tract infection and placed on Macrobid with no improvement. With the admission the patient was given his first dose of ceftriaxone. His fever continued and with positive blood cultures antibiotic therapy was enhanced. Multiple imaging studies occurring today. Review of Systems Severe back pain difficulty ambulating fever and weakness HEENT:Denies headache or acute visual change. Denies sinus or mouth discomforts. Denies neck stiffness or pain. Denies significant oral cavity pain. Denies difficulty on swallowing. Lungs: Denies significant shortness of breath, cough, sputum production, or hemoptysis. Cardiovascular: Denies significant shortness of breath, chest pain, chest wall pain, orthopnea, dyspnea on exertion, syncope Gastrointestinal:Denies nausea, vomiting, diarrhea, constipation, hematemesis, melena, hematochezia. No no significant change of bowel habit noticed. Musculoskeletal: Severe back pain difficulty ambulating Skin: Denies new rash or lesions. No new ulcers or wounds are related.. Neuro: Denies headache or visual change. Denies any new onset weakness or difficulty with ambulation. Denies falls or seizures. Psychiatric:Denies anxiety or depression. Endocrine: Denies significant fatigue, denies significant weight loss or weight gain. Past Medical History Past Medical History: Cancer, GERD/Reflux, Hypertension, Prostate Disorder, Thyroid Disorder Additional Past Medical History / Comment(s): SKIN CANCER. CURRENT UTI History of Any Multi-Drug Resistant Organisms: Other MDRO Past Surgical History: Adenoidectomy, Hernia Repair, Joint Replacement, Prostate Surgery, Tonsillectomy Additional Past Surgical History / Comment(s): PARATHYROID SX. ESOPHAGEAL SX FOR ACHALASIA. VARICOSE VEIN SX. BILAT CATARAT SX. COLONOSCOPY Past Anesthesia/Blood Transfusion Reactions: No Reported Reaction Past Psychological History: No Psychological Hx Reported Additional Psychological History / Comment(s): Retired lives with the . Adult daughter is visiting. No tobacco use. No experience. No extensive travel. Smoking Status: Never smoker Past Alcohol Use History: Rare Past Drug Use History: None Reported - Past Family History Mother Family Medical History: Cancer Additional Family Medical History / Comment(s): COLON Medications and Allergies Home Medications and Allergies Comment(s): Current Medications Acetaminophen (Tylenol Tab) 650 mg PO Q6HR PRN PRN Reason: Fever and/ or Pain Last Admin: 10/17/18 09:44 Dose: 650 mg Hydrocodone Bitart/Acetaminophen ([place] 5-325) 1 each PO Q6HR PRN PRN Reason: Pain Last Admin: 10/17/18 20:33 Dose: 1 each Alprazolam (Xanax) 0.25 mg PO TID PRN PRN Reason: Anxiety Amlodipine Besylate (Norvasc) 10 mg PO DAILY [facility] Last Admin: 10/17/18 09:43 Dose: 10 mg Atenolol (Tenormin) 25 mg PO DAILY [facility] Last Admin: 10/17/18 09:44 Dose: 25 mg Cholecalciferol (Vitamin D3) 1,000 unit PO DAILY [facility]IP[facility] Last Admin: 10/17/18 09:44 Dose: 1,000 unit Heparin Sodium (Porcine) (Heparin) 0 unit IV PER PROTOCOL PRN; Protocol PRN Reason: Low PTT Last Admin: 10/17/18 21:51 Dose: 7,240 unit Hydromorphone HCl (Dilaudid) 0.25 mg IVP Q3H PRN PRN Reason: Moderate Pain Last Admin: 10/17/18 17:38 Dose: 0.25 mg Heparin Sodium/Sodium Chloride (25,000 unit/ Sodium Chloride) 500 mls @ 32.65 mls/hr IV .[id number] [facility]; Protocol Last Titration: 10/17/18 21:52 Dose: 28 units/kg/hr, 50.8 mls/hr Sodium Chloride (Saline 0.9%) 1,000 mls @ 75 mls/hr IV .[id number] [facility] Last Admin: 10/17/18 14:00 Dose: 75 mls/hr Meropenem 1 gm/ Sodium (Chloride) 100 mls @ 200 mls/hr IVPB Q8HR [facility]; Protocol Last Admin: 10/17/18 16:58 Dose: 200 mls/hr Ceftriaxone Sodium 1,000 mg/ (Sodium Chloride) 50 mls @ 100 mls/hr IVPB Q24H [facility] Last Admin: 10/17/18 18:02 Dose: 100 mls/hr Levothyroxine Sodium (Synthroid) 100 mcg PO DAILY@0630 [facility] Last Admin: 10/17/18 06:08 Dose: 100 mcg Melatonin (Melatonin) 3 mg PO HS PRN PRN Reason: Insomnia Naloxone HCl (Narcan) 0.2 mg IV Q2M PRN PRN Reason: Opioid Reversal Pantoprazole Sodium (Protonix) 40 mg PO AC-[id number] [facility] Last Admin: 10/17/18 09:43 Dose: 40 mg Tamsulosin HCl (Flomax) 0.4 mg PO DAILY [facility] Last Admin: 10/17/18 09:44 Dose: 0.4 mg Temazepam (Restoril) 15 mg PO HS PRN PRN Reason: Insomnia Triamterene/HCTZ (Dyazide) 1 each PO DAILY [facility] Last Admin: 10/17/18 09:44 Dose: 1 each Home Medications Medication Instructions Recorded Confirmed Type Atenolol [Tenormin] 25 mg PO DAILY 01/09/18 10/16/18 History Cholecalciferol [Vitamin D3] 1,000 unit PO DAILY 01/09/18 10/16/18 History Levothyroxine Sodium [Synthroid] 100 mcg PO DAILY 01/09/18 10/16/18 History Pantoprazole Sodium [Protonix] 40 mg PO DAILY 01/09/18 10/16/18 History Tamsulosin HCl [Flomax] 0.4 mg PO DAILY 01/09/18 10/16/18 History Triamterene-Hctz 37.5-25Mg 1 cap PO DAILY 01/09/18 10/16/18 History [Dyazide 37.5-25 Capsule] amLODIPine [Norvasc] 10 mg PO DAILY 01/09/18 10/16/18 History Allergies Allergy/AdvReac Type Severity Reaction Status Date / Time No Known Allergies Allergy Verified 10/16/18 21:13 Physical Exam Vitals: Vital Signs Temp Pulse Pulse Resp BP Pulse Ox 10/17/18 21:28 99.7 F H 69 17 99/57 93 L 10/17/18 16:00 99.8 F H 65 20 118/62 91 L 10/17/18 12:07 101.3 F H 68 17 105/60 90 L 10/17/18 08:30 100.4 F H 71 15 115/58 90 L 10/17/18 04:00 98.7 F 71 16 113/57 97 10/16/18 23:40 98.7 F 74 16 104/56 93 L Intake and Output 10/17/18 10/17/18 10/18/18 14:59 22:59 06:59 Intake Total 261.655 675.967 Output Total 200 Balance 261.655 475.967 Intake: Intake, IV Titration 261.655 575.967 Amount Heparin Sod,Pork in 0.45% 261.655 425.967 NaCl 25,000 unit In 0.45 % NaCl 1 500ml.bag @ 18 UNITS/KG/HR 32.65 mls/hr IV .[id number] [facility]IP[facility] Rx#: [id number] Sodium Chloride 0.9% 1, 150 000 ml @ 75 mls/hr IV . [id number] [facility]IP[facility] Rx#:[id number] Oral 100 Output: Urine 200 Other: Voiding Method Urinal Urinal # Voids 3 83-year-old male with significant discomfort in his back HEENT: Anicteric conjunctiva are pink and moist nasal mucosa grossly intact without significant lesions, there is no thrush. Neck: The neck is supple without significant lymphadenopathy or thyromegaly. Lungs: Good bilateral air entry without significant crackles or wheezing. There is no significant bronchial sounds. There is no egophony or dullness. Heart: Regular rate and rhythm with an audible S1-S2, no S3 no S4. There is no significant murmur click or rub, PMI was nondisplaced. Abdomen: Bowel sounds are present abdomen is soft severe pain in his back Extremities: The upper extremities have excellent pulses they are symmetric, no significant petechiae or telangiectasia. No splinter hemorrhages were noted. The lower extremities are free from significant edema. The peripheral pulses were 2+ and symmetric. Neuro: Awake alert oriented to person place and time. There are no acute new gross focal sensory motor deficits. Results CBC & Chem 7: 10/17/18 09:46 10/17/18 09:46 Labs: Abnormal Lab Results - Last 24 Hours (Table) 10/17/18 10/17/18 10/17/18 Range/Units 02:11 09:46 09:46 RBC 3.67 L (4.30-5.90) m/uL Hgb 10.9 L (13.0-17.5) gm/dL Hct 32.7 L (39.0-53.0) % Lymphocytes # 0.9 L (1.0-4.8) k/uL APTT 41.1 H (22.0-30.0) sec Sodium 135 L (137-145) mmol/L Glucose 110 H (74-99) mg/dL Alkaline Phosphatase 136 H (38-126) U/L Total Protein 5.9 L (6.3-8.2) g/dL Albumin 2.5 L (3.5-5.0) g/dL Urine Blood (Negative) Ur Leukocyte Esterase (Negative) Urine WBC (0-5) /hpf Urine Bacteria (None) /hpf Urine Mucus (None) /hpf 10/17/18 10/17/18 10/17/18 Range/Units 09:46 15:00 17:24 RBC (4.30-5.90) m/uL Hgb (13.0-17.5) gm/dL Hct (39.0-53.0) % Lymphocytes # (1.0-4.8) k/uL APTT 36.8 H 49.2 H (22.0-30.0) sec Sodium (137-145) mmol/L Glucose (74-99) mg/dL Alkaline Phosphatase (38-126) U/L Total Protein (6.3-8.2) g/dL Albumin (3.5-5.0) g/dL Urine Blood Small H (Negative) Ur Leukocyte Esterase Moderate H (Negative) Urine WBC 58 H (0-5) /hpf Urine Bacteria Occasional H (None) /hpf Urine Mucus Rare H (None) /hpf Microbiology - Last 24 Hours (Table) 10/16/18 23:01 Blood Culture Gram Stain - Preliminary Blood Blood Culture - Preliminary Escherichia coli 10/16/18 23:01 Blood Culture - Final Blood 10/16/18 14:40 Urine Culture - Preliminary Urine,Voided Laboratory Results WBC 8.2 k/uL (3.8-10.6) 10/17/18 09:46 RBC 3.67 m/uL (4.30-5.90) L 10/17/18 09:46 Hgb 10.9 gm/dL (13.0-17.5) L 10/17/18 09:46 Hct 32.7 % (39.0-53.0) L 10/17/18 09:46 MCV 88.9 fL (80.0-100.0) 10/17/18 09:46 MCH 29.6 pg (25.0-35.0) 10/17/18 09:46 MCHC 33.3 g/dL (31.0-37.0) 10/17/18 09:46 RDW 14.2 % (11.5-15.5) 10/17/18 09:46 Plt Count 343 k/uL (150-450) 10/17/18 09:46 Neutrophils % 81 % 10/17/18 09:46 Lymphocytes % 11 % 10/17/18 09:46 Monocytes % 5 % 10/17/18 09:46 Eosinophils % 0 % 10/17/18 09:46 Basophils % 0 % 10/17/18 09:46 Neutrophils # 6.7 k/uL (1.3-7.7) 10/17/18 09:46 Lymphocytes # 0.9 k/uL (1.0-4.8) L 10/17/18 09:46 Monocytes # 0.4 k/uL (0-1.0) 10/17/18 09:46 Eosinophils # 0.0 k/uL (0-0.7) 10/17/18 09:46 Basophils # 0.0 k/uL (0-0.2) 10/17/18 09:46 PT 10.5 sec (9.0-12.0) 10/16/18 15:37 INR 1.1 (<1.2) 10/16/18 15:37 APTT 24.3 sec (22.0-30.0) 10/17/18 20:52 Sodium 135 mmol/L (137-145) L 10/17/18 09:46 Potassium 4.2 mmol/L (3.5-5.1) 10/17/18 09:46 Chloride 104 mmol/L (98-107) 10/17/18 09:46 Carbon Dioxide 24 mmol/L (22-30) 10/17/18 09:46 Anion Gap 7 mmol/L 10/17/18 09:46 BUN 16 mg/dL (9-20) 10/17/18 09:46 Creatinine 0.84 mg/dL (0.66-1.25) 10/17/18 09:46 Est GFR (CKD-EPI)AfAm >90 (>60 ml/min/1.73 sqM) 10/17/18 09:46 Est GFR (CKD-EPI)NonAf 81 (>60 ml/min/1.73 sqM) 10/17/18 09:46 Glucose 110 mg/dL (74-99) H 10/17/18 09:46 Calcium 8.9 mg/dL (8.4-10.2) 10/17/18 09:46 Total Bilirubin 1.3 mg/dL (0.2-1.3) 10/17/18 09:46 AST 38 U/L (17-59) 10/17/18 09:46 ALT 62 U/L (21-72) 10/17/18 09:46 Alkaline Phosphatase 136 U/L (38-126) H 10/17/18 09:46 Total Protein 5.9 g/dL (6.3-8.2) L 10/17/18 09:46 Albumin 2.5 g/dL (3.5-5.0) L 10/17/18 09:46 Urine Color Yellow 10/17/18 15:00 Urine Appearance Cloudy (Clear) 10/17/18 15:00 Urine pH 6.0 (5.0-8.0) 10/17/18 15:00 Ur Specific [place] 1.012 (1.001-1.035) 10/17/18 15:00 Urine Protein Negative (Negative) 10/17/18 15:00 Urine Glucose (UA) Negative (Negative) 10/17/18 15:00 Urine Ketones Negative (Negative) 10/17/18 15:00 Urine Blood Small (Negative) H 10/17/18 15:00 Urine Nitrite Negative (Negative) 10/17/18 15:00 Urine Bilirubin Negative (Negative) 10/17/18 15:00 Urine Urobilinogen 2.0 mg/dL (<2.0) 10/17/18 15:00 Ur Leukocyte Esterase Moderate (Negative) H 10/17/18 15:00 Urine RBC 5 /hpf (0-5) 10/17/18 15:00 Urine WBC 58 /hpf (0-5) H 10/17/18 15:00 Ur Squamous Epith Cells <1 /hpf (0-4) 10/16/18 14:40 Urine Bacteria Occasional /hpf (None) H 10/17/18 15:00 Urine Mucus Rare /hpf (None) H 10/17/18 15:00 Microbiology 10/16/18 23:01 Blood Blood Culture Gram Stain - Preliminary 10/16/18 23:01 Blood Blood Culture - Preliminary Escherichia coli 10/16/18 23:01 Blood Blood Culture - Final 10/16/18 14:40 Urine,Voided Urine Culture - Preliminary Assessment and Plan (1) Inferior vena cava thromboembolism Current Visit: Yes Status: Acute Code(s): I82.220 - ACUTE EMBOLISM AND THROMBOSIS OF INFERIOR VENA CAVA SNOMED Code(s): 076076939 (2) Fever Narrative/Plan: 83-year-old male with multiple medical troubles presents to hospital with increasing pain in his back increasing difficulties with ambulation and increasing weakness. The patient would imaging studies that revealed evidence of inferior vena cava thrombosis with evidence of extension to the iliacs bilaterally. Further workup as failed reloads of pulmonary embolus or deep venous thrombosis and to the lower extremities. The patient has recently completed a trip to [facility]. The patient was begun on Macrobid by his primary care physician but has not had improvement. Evidence of fever at admission evidence of positive urinalysis and urine culture and blood cultures are positive for E. coli. Given his history of a somewhat resistant pathogen meropenem has been started for the treatment of the current sepsis. Patient has been seen by oncology to further characterize the lesions in the liver with concern that they are malignant and metastatic in nature they will likely be been biopsied in the near future since he is on heparin drip that would need to be held for the biopsies by interventional radiology. The patient will likely go to extended care discharge to complete his course of antibiotic therapy that was required for his current sepsis. Current Visit: Yes Status: Acute Code(s): R50.9 - FEVER, UNSPECIFIED SNOMED Code(s): 302380454 (3) E. coli sepsis Current Visit: Yes Status: Acute Code(s): A41.51 - SEPSIS DUE TO ESCHERICHIA COLI [E. COLI] SNOMED Code(s): 024196848
[2018-10-18] MEDS: HYDROcodone/APAP 5-325MG 1 EACH TAB PO PRN ×4 (01:54→17:42)
[2018-10-18] MEDS: HEPARIN SOD,PORK IN 0.45% NACL 25,000 UNIT in 0.45% NACL 1 500ML.BAG IV SCH ×2 (03:06→13:46)
[2018-10-18] MEDS: SODIUM CHLORIDE 0.9% 1,000 ML IV SCH ×2 (04:25→13:48)
[2018-10-18 04:50] LABS: Basophils # (A) 0.1 k/uL (0-0.2); Basophils % (A) 1 %; Eosinophils % (A) 1 %; HCT 36.3 % (39.0-53.0); HGB 11.7 gm/dL (13.0-17.5); Lymphocytes % (A) 12 %; MCH 28.4 pg (25.0-35.0); MCHC 32.1 g/dL (31.0-37.0); MCV 88.3 fL (80.0-100.0); Mean Platelet Volume 6.7; Monocytes # (A) 0.5 k/uL (0-1.0); Monocytes % (A) 6 %; Neutrophils # (A) 6.4 k/uL (1.3-7.7); Neutrophils % (A) 78 %; Platelet Count 337 k/uL (150-450); RBC 4.11 m/uL (4.30-5.90); RDW 14.1 % (11.5-15.5); WBC 8.2 k/uL (3.8-10.6)
[2018-10-18 05:03] LABS: ALT 67 U/L (21-72); AST 43 U/L (17-59); Albumin 2.6 g/dL (3.5-5.0); Alkaline Phosphatase 145 U/L (38-126); Anion Gap 8 mmol/L; Blood Urea Nitrogen 16 mg/dL (9-20); Calcium 8.9 mg/dL (8.4-10.2); Carbon Dioxide 25 mmol/L (22-30); Chloride 102 mmol/L (98-107); Glucose 104 mg/dL (74-99); Potassium 3.9 mmol/L (3.5-5.1); Sodium 135 mmol/L (137-145)
[2018-10-18] MEDS: LEVOTHYROXINE 100 MCG TAB PO SCH (05:36)
[2018-10-18] MEDS: MEROPENEM 1 GM in SODIUM CHLORIDE 0.9% 100 ML IVPB SCH ×3 (08:02→23:31)
[2018-10-18] MEDS: amLODIPine 10 MG TAB PO SCH (08:14)
[2018-10-18] MEDS: ATENOLOL 25 MG TAB PO SCH (08:14)
[2018-10-18] MEDS: PANTOPRAZOLE 40 MG TABLET PO SCH (08:14)
[2018-10-18] MEDS: TRIAMTERENE-HCTZ 37.5-25MG 1 EACH CAP PO SCH (08:15)
[2018-10-18] MEDS: CHOLECALCIFEROL 1,000 UNIT TAB PO SCH (08:15)
[2018-10-18] MEDS: TAMSULOSIN 0.4 MG CAP.ER.24H PO SCH (08:15)
[2018-10-18] MEDS: HYDROmorphone 1 MG/ML 1 ML SYRINGE IVP PRN (12:05)
--- NOTE | 2018-10-18 12:54 | P.CNOR ---
History of Present Illness - [facility] Consult date: 10/18/18 Consult reason: low back pain History of present illness: Patient is a very pleasant 83-year-old gentleman who is seen and examined today at bedside. He says that he's been having some increasing back pain over the past few weeks. He says the pain mainly sits at his lower back and he is not having specific lower extremity pain but was having some weakness in his lower extremities and difficulty at his lower extremity is yesterday area the weakness at his lower extremity seems to be resolving but he continues to have some back pain. He denies any specific injury or trauma. He denies any shortness of breath. Denies any changes in bowel bladder function. He is also being worked up in regards to possible lesions at his liver. He had recent urinary tract infection a few weeks ago that he says started the pain in his back. Review of Systems Denies any changes bowel bladder function other than recent urinary tract infection. He denies any shortness breath or chest pain. Currently he denies pain in his lower extremities but according to his family was having some weakness in his legs yesterday. Denies any specific injury to his lower back recently. Past Medical History Past Medical History: Cancer, GERD/Reflux, Hypertension, Prostate Disorder, Thyroid Disorder Additional Past Medical History / Comment(s): SKIN CANCER. CURRENT UTI History of Any Multi-Drug Resistant Organisms: Other MDRO Past Surgical History: Adenoidectomy, Hernia Repair, Joint Replacement, Prostate Surgery, Tonsillectomy Additional Past Surgical History / Comment(s): PARATHYROID SX. ESOPHAGEAL SX FOR ACHALASIA. VARICOSE VEIN SX. BILAT CATARAT SX. COLONOSCOPY Past Anesthesia/Blood Transfusion Reactions: No Reported Reaction Past Psychological History: No Psychological Hx Reported Additional Psychological History / Comment(s): Retired lives with the . Adult daughter is visiting. No tobacco use. No experience. No extensive travel. Smoking Status: Never smoker Past Alcohol Use History: Rare Past Drug Use History: None Reported - Past Family History Mother Family Medical History: Cancer Additional Family Medical History / Comment(s): COLON Medications and Allergies Home Medications Medication Instructions Recorded Confirmed Type Atenolol [Tenormin] 25 mg PO DAILY 01/09/18 10/16/18 History Cholecalciferol [Vitamin D3] 1,000 unit PO DAILY 01/09/18 10/16/18 History Levothyroxine Sodium [Synthroid] 100 mcg PO DAILY 01/09/18 10/16/18 History Pantoprazole Sodium [Protonix] 40 mg PO DAILY 01/09/18 10/16/18 History Tamsulosin HCl [Flomax] 0.4 mg PO DAILY 01/09/18 10/16/18 History Triamterene-Hctz 37.5-25Mg 1 cap PO DAILY 01/09/18 10/16/18 History [Dyazide 37.5-25 Capsule] amLODIPine [Norvasc] 10 mg PO DAILY 01/09/18 10/16/18 History Allergies Allergy/AdvReac Type Severity Reaction Status Date / Time No Known Allergies Allergy Verified 10/16/18 21:13 Physical Examination Osteopathic Statement: *. No significant issues noted on an osteopathic structural exam other than those noted in the History and Physical/Consult. - L Spine: dermatomal strength & reflexes bilateral Strength: hip flexion: 5/5 (At his lower back is nontender to palpation. There is no rash there is no open wounds lacerations or abrasions.His lower extremities he has sustained dorsal flexion plantar flexion and EHL intact. He is 5 out of 5 dorsi flexion plantar flexion. He is able to lift his legs up off the bed independently. He is no pain with internal x-ray patient of his hips. His pelvis is stable to rock.) Results - Labs Labs: Abnormal Lab Results - Last 24 Hours (Table) 10/17/18 10/17/18 10/18/18 Range/Units 15:00 17:24 04:16 RBC 4.11 L (4.30-5.90) m/uL Hgb 11.7 L (13.0-17.5) gm/dL Hct 36.3 L (39.0-53.0) % APTT 49.2 H (22.0-30.0) sec Sodium (137-145) mmol/L Glucose (74-99) mg/dL Alkaline Phosphatase (38-126) U/L Total Protein (6.3-8.2) g/dL Albumin (3.5-5.0) g/dL CA 19-9 Antigen (0.0-34.9) U/mL Urine Blood Small H (Negative) Ur Leukocyte Esterase Moderate H (Negative) Urine WBC 58 H (0-5) /hpf Urine Bacteria Occasional H (None) /hpf Urine Mucus Rare H (None) /hpf 10/18/18 10/18/18 10/18/18 Range/Units 04:16 04:16 04:16 RBC (4.30-5.90) m/uL Hgb (13.0-17.5) gm/dL Hct (39.0-53.0) % APTT 67.6 H (22.0-30.0) sec Sodium 135 L (137-145) mmol/L Glucose 104 H (74-99) mg/dL Alkaline Phosphatase 145 H (38-126) U/L Total Protein 6.0 L (6.3-8.2) g/dL Albumin 2.6 L (3.5-5.0) g/dL CA 19-9 Antigen 223.2 H (0.0-34.9) U/mL Urine Blood (Negative) Ur Leukocyte Esterase (Negative) Urine WBC (0-5) /hpf Urine Bacteria (None) /hpf Urine Mucus (None) /hpf Microbiology - Last 24 Hours (Table) 10/16/18 14:40 Urine Culture - Preliminary Urine,Voided Gram Neg Bacilli 10/16/18 23:01 Blood Culture Gram Stain - Preliminary Blood Blood Culture - Preliminary Escherichia coli 10/16/18 23:01 Blood Culture - Final Blood H & H 10/16/18 10/17/18 10/18/18 Range/Units 15:30 09:46 04:16 Hgb 12.5 L 10.9 L 11.7 L (13.0-17.5) gm/dL Hct 36.2 L 32.7 L 36.3 L (39.0-53.0) % Coagulation 10/16/18 Range/Units 15:37 INR 1.1 (<1.2) Result Diagrams: 10/18/18 04:16 10/18/18 04:16 - Diagnostic results Lumbar AP/lateral x-ray: report reviewed, image reviewed Lumbar MRI with/without contrast: report reviewed, image reviewed (MRI and x- rays of his lumbar spine are reviewed. There is no obvious fracture or bony lesion. He has a very slight grade 1 spondylolisthesis L4 5. There is evidence of a disc herniation L4 5 causing central and bilateral foraminal stenosis. There is an extruded fragment at the disc herniation of L4 5. 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 He was having some lower extremity radicular symptoms yesterday but his strength seems to be intact today. There is a large disc herniation L4 5 and he may do well with dedicated conservative treatment for this. I like to see if he has some benefit with steroid medication. We will start him on 60 mg IV steroids twice a day for today and then he may taper or switch to oral medications and a tapering course of prednisone in the next day or 2 if he is having some response. We will also have interventional pain management see him with Dr. Hanley. He be is a candidate for epidural steroid injections at the L4 5 space to see if this helps resolve his low back pain as well. Certainly we would like to treat him conservatively rather than surgically. He would be a candidate for laminectomy and discectomy with possible interlaminar spacer if his symptoms do not resolve. He like to try conservative treatment as long as possible. I think is appropriate. We will have physical therapy see him as well for attempting mobilization and ambulation. He is continuing workup in terms of his liver and history of prostate cancer. He does not seem to have active infection at this point. He will continue medical management. If he is making improvement in terms of his low back pain it would be okay from an orthopedic spine standpoint for him to be discharged home for follow-up on an outpatient basis.
--- NOTE | 2018-10-18 13:17 | US ---
EXAMINATION TYPE: US liver DATE OF EXAM: 10/18/2018 COMPARISON: 10/17 CLINICAL HISTORY: Evaluation of liver masses. evaluate liver mass EXAM MEASUREMENTS: Liver Length: 18.9 cm Gallbladder Wall: 0.2 cm CBD: 0.5 cm Right Kidney: 12.0 x 5.2 x 6.4 cm Technical limitations due to overlying bowel content and patient has limited mobility Pancreas: Obscured by bowel gas Liver: enlarged, heterogeneous with at least 2 hypoechoic areas noted, largest = 5.3 x 4.6 x 5.4cm Gallbladder: no evidence of stones, only visualized in supine position Evidence for sonographic Ryder's sign: no CBD: limited evaluation Right Kidney: no evidence of hydronephrosis IMPRESSION: Liver is enlarged and there are 2 hypoechoic masses suspicious for metastases correspondi ng to the CT abnormality.
[2018-10-18] MEDS: methylPREDNISolone SOD SUCCI 125 MG/2 ML VIAL IV SCH ×2 (13:22→21:26)
--- NOTE | 2018-10-18 15:58 | P.PAINCN ---
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 CURRENT UTI History of Any Multi-Drug Resistant Organisms: Other MDRO Past Surgical History: Adenoidectomy, Hernia Repair, Joint Replacement, Prostate Surgery, Tonsillectomy Additional Past Surgical History / Comment(s): PARATHYROID SX. ESOPHAGEAL SX FOR ACHALASIA. VARICOSE VEIN SX. BILAT CATARAT SX. COLONOSCOPY Past Anesthesia/Blood Transfusion Reactions: No Reported Reaction Past Psychological History: No Psychological Hx Reported Additional Psychological History / Comment(s): Retired lives with the . Adult daughter is visiting. No tobacco use. No experience. No extensive travel. Smoking Status: Never smoker Past Alcohol Use History: Rare Past Drug Use History: None Reported - Past Family History Mother Family Medical History: Cancer Additional Family Medical History / Comment(s): COLON Medications and Allergies Home Medications Medication Instructions Recorded Confirmed Type Atenolol [Tenormin] 25 mg PO DAILY 01/09/18 10/16/18 History Cholecalciferol [Vitamin D3] 1,000 unit PO DAILY 01/09/18 10/16/18 History Levothyroxine Sodium [Synthroid] 100 mcg PO DAILY 01/09/18 10/16/18 History Pantoprazole Sodium [Protonix] 40 mg PO DAILY 01/09/18 10/16/18 History Tamsulosin HCl [Flomax] 0.4 mg PO DAILY 01/09/18 10/16/18 History Triamterene-Hctz 37.5-25Mg 1 cap PO DAILY 01/09/18 10/16/18 History [Dyazide 37.5-25 Capsule] amLODIPine [Norvasc] 10 mg PO DAILY 01/09/18 10/16/18 History Allergies Allergy/AdvReac Type Severity Reaction Status Date / Time No Known Allergies Allergy Verified 10/16/18 21:13 Physical Exam Vitals: Vital Signs Temp Pulse Pulse Resp BP Pulse Ox 10/18/18 12:04 99.9 F H 70 16 101/58 10/18/18 07:00 70 16 10/18/18 04:03 98.8 F 70 16 99/55 92 L 10/18/18 02:00 100.3 F H 10/18/18 00:00 65 69 17 10/17/18 23:52 99.8 F H 10/17/18 21:28 99.7 F H 69 17 99/57 93 L 10/17/18 16:00 99.8 F H 65 20 118/62 91 L Intake and Output 10/18/18 10/18/18 10/18/18 06:59 14:59 22:59 Intake Total 433.547 500 Output Total 200 Balance 433.547 300 Intake: Intake, IV Titration 13.547 500 Amount Heparin Sod,Pork in 0.45% 13.547 500 NaCl 25,000 unit In 0.45 % NaCl 1 500ml.bag @ 18 UNITS/KG/HR 32.65 mls/hr IV .[id number] [facility] Rx#: [id number] Oral 420 Output: Urine 200 Other: Voiding Method Urinal Urinal # Voids 1 Results CBC & Chem 7: 10/18/18 04:16 10/18/18 04:16 Labs: Abnormal Lab Results - Last 24 Hours (Table) 10/17/18 10/17/18 10/18/18 Range/Units 09:46 17:24 04:16 RBC 4.11 L (4.30-5.90) m/uL Hgb 11.7 L (13.0-17.5) gm/dL Hct 36.3 L (39.0-53.0) % APTT 49.2 H (22.0-30.0) sec Sodium (137-145) mmol/L Glucose (74-99) mg/dL Alkaline Phosphatase (38-126) U/L Total Protein (6.3-8.2) g/dL Albumin (3.5-5.0) g/dL CA 19-9 Antigen (0.0-34.9) U/mL Total PSA 26.0 H (<=4.0) ng/mL 10/18/18 10/18/18 10/18/18 Range/Units 04:16 04:16 04:16 RBC (4.30-5.90) m/uL Hgb (13.0-17.5) gm/dL Hct (39.0-53.0) % APTT 67.6 H (22.0-30.0) sec Sodium 135 L (137-145) mmol/L Glucose 104 H (74-99) mg/dL Alkaline Phosphatase 145 H (38-126) U/L Total Protein 6.0 L (6.3-8.2) g/dL Albumin 2.6 L (3.5-5.0) g/dL CA 19-9 Antigen 223.2 H (0.0-34.9) U/mL Total PSA (<=4.0) ng/mL Microbiology - Last 24 Hours (Table) 10/16/18 14:40 Urine Culture - Preliminary Urine,Voided Gram Neg Bacilli 10/16/18 23:01 Blood Culture Gram Stain - Preliminary Blood Blood Culture - Preliminary Escherichia coli 10/16/18 23:01 Blood Culture - Final Blood Comments: MRI of the lumbar spine multilevel lumbar facet arthropathy and foraminal stenosis and moderate L4 5 disc herniation Assessment and Plan Plan: Assessment and plan= severe low back pain secondary to lumbar herniated disc disease, and lumbar facet arthropathy Patient could benefit from lumbar epidural steroid injection, but currently patient on IV anticoagulation/heparin, because he had an inferior vena cava thrombosis, injection cannot be done until we hold the anticoagulation, the interventional pain management currently is not an option because of anticoagulation, recommend continue current medication Gypsy 5 /325 every 4 hours when necessary, and patient can be seen as an outpatient after he is discharged PQRS Measure Charge Sheet Measure #130: Documentation of Current Meds in Medical Chart: Patient's medications documented in chart PQRS Narrative: Smoking Status Never smoker Do You Want the Pneumonia Vaccine Up to Date Vaccine AT THIS TIME? Blood Pressure [Left Arm] 101/58 Blood Pressure 111/67 Pain Intensity [Back] 8 Pain Intensity 8 Pain Scale Used Numeric (1 - 10) Scale Used Numeric (1 - 10) Home Medications: Ambulatory Orders Atenolol [Tenormin] 25 mg PO DAILY 01/09/18 Cholecalciferol [Vitamin D3] 1,000 unit PO DAILY 01/09/18 Levothyroxine Sodium [Synthroid] 100 mcg PO DAILY 01/09/18 Pantoprazole Sodium [Protonix] 40 mg PO DAILY 01/09/18 Tamsulosin HCl [Flomax] 0.4 mg PO DAILY 01/09/18 Triamterene-Hctz 37.5-25Mg [Dyazide 37.5-25 Capsule] 1 cap PO DAILY 01/09/18 amLODIPine [Norvasc] 10 mg PO DAILY 01/09/18
--- NOTE | 2018-10-18 16:50 | P.PN ---
Subjective Progress Note Date: 10/18/18 Principal diagnosis: Liver Lesion, New IVC Thrombus Reviewed CT Scan overnight and MRI of Lumbar and Liver. Objective - Vital Signs Vital signs: Vital Signs Temp 98.8 F 10/18/18 04:03 Pulse 70 10/18/18 07:00 Resp 16 10/18/18 07:00 BP 99/55 10/18/18 04:03 Pulse Ox 92 L 10/18/18 04:03 Intake & Output 10/17/18 10/18/18 10/18/18 18:59 06:59 18:59 Intake Total 517.090 854.079 Output Total 200 200 Balance 317.090 854.079 -200 Intake: Intake, IV Titration 517.090 334.079 Amount Heparin Sod,Pork in 0.45% 517.090 184.079 NaCl 25,000 unit In 0.45 % NaCl 1 500ml.bag @ 18 UNITS/KG/HR 32.65 mls/hr IV .[id number] [facility] Rx#: [id number] Sodium Chloride 0.9% 1, 150 000 ml @ 75 mls/hr IV . [id number] [facility] Rx#:[id number] Oral 520 Output: Urine 200 200 Other: Voiding Method Urinal Urinal Urinal # Voids 3 1 - Exam Constitutional General appearance: cooperative, no acute distress, thin - EENT Eyes: EOMI, dentition normal, normal appearance ENT: hard of hearing, NA/AT, normal oropharynx - Neck supple, no cervical lymphadenopathy Neck: normal ROM - Cardiovascular Rhythm: regular Heart sounds: normal: S1, S2 - Gastrointestinal Bloated tender to palpation, decreased bowel sounds General gastrointestinal: distended, tenderness - Integumentary Integumentary: pale - Neurologic Neurologic: CNII-XII intact - Musculoskeletal Musculoskeletal: generalized weakness, right sided weakness - Psychiatric Lethargic but answers appropriately when questions asked. Psychiatric: A&O x's 3, appropriate affect - Labs CBC & Chem 7: 10/18/18 04:16 10/18/18 04:16 Labs: Abnormal Lab Results - Last 24 Hours (Table) 10/17/18 10/17/18 10/18/18 Range/Units 15:00 17:24 04:16 RBC 4.11 L (4.30-5.90) m/uL Hgb 11.7 L (13.0-17.5) gm/dL Hct 36.3 L (39.0-53.0) % APTT 49.2 H (22.0-30.0) sec Sodium (137-145) mmol/L Glucose (74-99) mg/dL Alkaline Phosphatase (38-126) U/L Total Protein (6.3-8.2) g/dL Albumin (3.5-5.0) g/dL Urine Blood Small H (Negative) Ur Leukocyte Esterase Moderate H (Negative) Urine WBC 58 H (0-5) /hpf Urine Bacteria Occasional H (None) /hpf Urine Mucus Rare H (None) /hpf 10/18/18 10/18/18 Range/Units 04:16 04:16 RBC (4.30-5.90) m/uL Hgb (13.0-17.5) gm/dL Hct (39.0-53.0) % APTT 67.6 H (22.0-30.0) sec Sodium 135 L (137-145) mmol/L Glucose 104 H (74-99) mg/dL Alkaline Phosphatase 145 H (38-126) U/L Total Protein 6.0 L (6.3-8.2) g/dL Albumin 2.6 L (3.5-5.0) g/dL Urine Blood (Negative) Ur Leukocyte Esterase (Negative) Urine WBC (0-5) /hpf Urine Bacteria (None) /hpf Urine Mucus (None) /hpf Microbiology - Last 24 Hours (Table) 10/16/18 14:40 Urine Culture - Preliminary Urine,Voided Gram Neg Bacilli 10/16/18 23:01 Blood Culture Gram Stain - Preliminary Blood Blood Culture - Preliminary Escherichia coli 10/16/18 23:01 Blood Culture - Final Blood Assessment and Plan Plan: Assessment and Recommendations: 1. New IVC Thrombosis: - BLE Dopplers negative for DVT - CTA negative for Pulmonary EMbolism although revealed bilateral atelectesis, pul htn, and infiltrates 2. Liver Lesions: Concern for malignancy - MRI of the liver reviewed: 2.5cm and 4.0cm liver lesions concerning for a metastatic process, Scattered cystic appearing pancreatic body and tail - Will check a Ca19-9, PSA (Known Enlarged prostate with multiple biopsies all neg in past) - Interventional Radiology consultation for Biosy of Liver Lesions 3. Lower extremity weakness and lower back pain - MRI Reviewed and revealed Large Herniated disc Protrusion L4L5 - ? COnsultation ortho-spine palliative intervention PLan: - COntinue on anticoagulation therapy, will require as outpatient - Await Ca-19-9 (pending)and Pathology after biopsy of liver, then can convert to PO anticoagualtion therapy - Pulmonary consultation resonable regarding bilateral atelectasis and infiltrated - Incentive spirometer to bedside and increase activity - Physical therapy to consult and increase activity - reviewed MRI with Patient and family. - Will have Orthospine consuolt to address back pain and disc herniation so we can increase activity to avoid further myopathy - I have discussed case in detail with Dr. Leonard Bowser his PCP. Dr. Bowser does state his baseline performance status is excellecent as well as his baseline neurological status, therefore resonable candidate despite age to furthergo biopsy of liver and further dignostic studies.
[2018-10-18] MEDS ORDERED: methylPREDNISolone SOD SUCCI 125 MG/2 ML VIAL IV SCH (21:00)
--- NOTE | 2018-10-19 00:05 | P.PN ---
Subjective Progress Note Date: 10/18/18 83-year-old male resents to Hospital with increasing weakness, increasing pain to his back and difficulty lifting his leg. The family relates the patient had been on a trip to [place] with frequent stops for ambulation along the way and the return. Had no great difficulties while he was there. He is normally a very active 83-year-old gentleman. However short before admission he started to have a decline of the status partly because of the severe back pain and increasing weakness to the leg. Family finally brought to the emergency center at which point in time it was found that he was acutely ill with a temperature 101.3 and severe back pain. His back pain is being treated and because of this he had imaging studies. 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 Further workup is in process and is being seen by hematology oncology. Because of the difficulties scanning was performed revealing evidence of lesions within the liver which are very concerning given the inferior vena cava thrombosis. The patient is known to the service from his difficulties of urinary tract infection with resistant E. coli from earlier this year. The family physician was concerned about a urinary tract infection and placed on Macrobid with no improvement. With the admission the patient was given his first dose of ceftriaxone. His fever continued and with positive blood cultures antibiotic therapy was enhanced. Multiple imaging studies occurring today. 10/18/2018 patient is more awake and alert today. He is not having much pain. This early concern as to the events. Fever has improved denies other new acute symptoms. Relates to minimal urinary discomfort at this time. Await liver biopsy. Objective - Vital Signs Vital signs: Vital Signs Temp 97.8 F 10/18/18 21:00 Pulse 63 10/18/18 21:00 Resp 17 10/18/18 21:00 BP 87/52 10/18/18 21:00 Pulse Ox 92 L 10/18/18 21:00 Intake & Output 10/18/18 10/18/18 10/19/18 06:59 18:59 06:59 Intake Total 854.079 500 Output Total 600 600 Balance 854.079 -100 -600 Intake: Intake, IV Titration 334.079 500 Amount Heparin Sod,Pork in 0.45% 184.079 500 NaCl 25,000 unit In 0.45 % NaCl 1 500ml.bag @ 18 UNITS/KG/HR 32.65 mls/hr IV .[id number] [facility] Rx#: [id number] Sodium Chloride 0.9% 1, 150 000 ml @ 20 mls/hr IV . Q24H [facility] Rx#:[id number] Oral 520 Output: Urine 600 600 Other: Voiding Method Urinal Urinal # Voids 3 - Exam 83-year-old male with significant discomfort in his back HEENT: Anicteric conjunctiva are pink and moist nasal mucosa grossly intact without significant lesions, there is no thrush. Neck: The neck is supple without significant lymphadenopathy or thyromegaly. Lungs: Good bilateral air entry without significant crackles or wheezing. There is no significant bronchial sounds. There is no egophony or dullness. Heart: Regular rate and rhythm with an audible S1-S2, no S3 no S4. There is no significant murmur click or rub, PMI was nondisplaced. Abdomen: Bowel sounds are present abdomen is soft severe pain in his back Extremities: The upper extremities have excellent pulses they are symmetric, no significant petechiae or telangiectasia. No splinter hemorrhages were noted. The lower extremities are free from significant edema. The peripheral pulses were 2+ and symmetric. Neuro: Awake alert oriented to person place and time. There are no acute new gross focal sensory motor deficits. - Labs CBC & Chem 7: 10/18/18 04:16 10/18/18 04:16 Labs: Abnormal Lab Results - Last 24 Hours (Table) 10/17/18 10/18/18 10/18/18 Range/Units 09:46 04:16 04:16 RBC 4.11 L (4.30-5.90) m/uL Hgb 11.7 L (13.0-17.5) gm/dL Hct 36.3 L (39.0-53.0) % APTT (22.0-30.0) sec Sodium 135 L (137-145) mmol/L Glucose 104 H (74-99) mg/dL Alkaline Phosphatase 145 H (38-126) U/L Total Protein 6.0 L (6.3-8.2) g/dL Albumin 2.6 L (3.5-5.0) g/dL CA 19-9 Antigen (0.0-34.9) U/mL Total PSA 26.0 H (<=4.0) ng/mL 10/18/18 10/18/18 Range/Units 04:16 04:16 RBC (4.30-5.90) m/uL Hgb (13.0-17.5) gm/dL Hct (39.0-53.0) % APTT 67.6 H (22.0-30.0) sec Sodium (137-145) mmol/L Glucose (74-99) mg/dL Alkaline Phosphatase (38-126) U/L Total Protein (6.3-8.2) g/dL Albumin (3.5-5.0) g/dL CA 19-9 Antigen 223.2 H (0.0-34.9) U/mL Total PSA (<=4.0) ng/mL Microbiology - Last 24 Hours (Table) 10/16/18 14:40 Urine Culture - Final Urine,Voided Escherichia coli 10/16/18 23:01 Blood Culture Gram Stain - Final Blood Blood Culture - Final Escherichia coli 10/17/18 17:24 Blood Culture - Preliminary Blood No Growth after 24 hours Laboratory Results WBC 8.2 k/uL (3.8-10.6) 10/18/18 04:16 RBC 4.11 m/uL (4.30-5.90) L 10/18/18 04:16 Hgb 11.7 gm/dL (13.0-17.5) L 10/18/18 04:16 Hct 36.3 % (39.0-53.0) L 10/18/18 04:16 MCV 88.3 fL (80.0-100.0) 10/18/18 04:16 MCH 28.4 pg (25.0-35.0) 10/18/18 04:16 MCHC 32.1 g/dL (31.0-37.0) 10/18/18 04:16 RDW 14.1 % (11.5-15.5) 10/18/18 04:16 Plt Count 337 k/uL (150-450) 10/18/18 04:16 Neutrophils % 78 % 10/18/18 04:16 Lymphocytes % 12 % 10/18/18 04:16 Monocytes % 6 % 10/18/18 04:16 Eosinophils % 1 % 10/18/18 04:16 Basophils % 1 % 10/18/18 04:16 Neutrophils # 6.4 k/uL (1.3-7.7) 10/18/18 04:16 Lymphocytes # 1.0 k/uL (1.0-4.8) 10/18/18 04:16 Monocytes # 0.5 k/uL (0-1.0) 10/18/18 04:16 Eosinophils # 0.0 k/uL (0-0.7) 10/18/18 04:16 Basophils # 0.1 k/uL (0-0.2) 10/18/18 04:16 PT 10.5 sec (9.0-12.0) 10/16/18 15:37 INR 1.1 (<1.2) 10/16/18 15:37 APTT 67.6 sec (22.0-30.0) H 10/18/18 04:16 Sodium 135 mmol/L (137-145) L 10/18/18 04:16 Potassium 3.9 mmol/L (3.5-5.1) 10/18/18 04:16 Chloride 102 mmol/L (98-107) 10/18/18 04:16 Carbon Dioxide 25 mmol/L (22-30) 10/18/18 04:16 Anion Gap 8 mmol/L 10/18/18 04:16 BUN 16 mg/dL (9-20) 10/18/18 04:16 Creatinine 0.86 mg/dL (0.66-1.25) 10/18/18 04:16 Est GFR (CKD-EPI)AfAm >90 (>60 ml/min/1.73 sqM) 10/18/18 04:16 Est GFR (CKD-EPI)NonAf 80 (>60 ml/min/1.73 sqM) 10/18/18 04:16 Glucose 104 mg/dL (74-99) H 10/18/18 04:16 Calcium 8.9 mg/dL (8.4-10.2) 10/18/18 04:16 Total Bilirubin 1.0 mg/dL (0.2-1.3) 10/18/18 04:16 AST 43 U/L (17-59) 10/18/18 04:16 ALT 67 U/L (21-72) 10/18/18 04:16 Alkaline Phosphatase 145 U/L (38-126) H 10/18/18 04:16 Total Protein 6.0 g/dL (6.3-8.2) L 10/18/18 04:16 Albumin 2.6 g/dL (3.5-5.0) L 10/18/18 04:16 CA 19-9 Antigen 223.2 U/mL (0.0-34.9) H 10/18/18 04:16 Free PSA TNP 10/17/18 09:46 % Free PSA TNP 10/17/18 09:46 Total PSA 26.0 ng/mL (<=4.0) H 10/17/18 09:46 Urine Color Yellow 10/17/18 15:00 Urine Appearance Cloudy (Clear) 10/17/18 15:00 Urine pH 6.0 (5.0-8.0) 10/17/18 15:00 Ur Specific Boyd 1.012 (1.001-1.035) 10/17/18 15:00 Urine Protein Negative (Negative) 10/17/18 15:00 Urine Glucose (UA) Negative (Negative) 10/17/18 15:00 Urine Ketones Negative (Negative) 10/17/18 15:00 Urine Blood Small (Negative) H 10/17/18 15:00 Urine Nitrite Negative (Negative) 10/17/18 15:00 Urine Bilirubin Negative (Negative) 10/17/18 15:00 Urine Urobilinogen 2.0 mg/dL (<2.0) 10/17/18 15:00 Ur Leukocyte Esterase Moderate (Negative) H 10/17/18 15:00 Urine RBC 5 /hpf (0-5) 10/17/18 15:00 Urine WBC 58 /hpf (0-5) H 10/17/18 15:00 Ur Squamous Epith Cells <1 /hpf (0-4) 10/16/18 14:40 Urine Bacteria Occasional /hpf (None) H 10/17/18 15:00 Urine Mucus Rare /hpf (None) H 10/17/18 15:00 Microbiology 10/16/18 14:40 Urine,Voided Urine Culture - Final Escherichia coli 10/16/18 23:01 Blood Blood Culture Gram Stain - Final 10/16/18 23:01 Blood Blood Culture - Final Escherichia coli 10/17/18 17:24 Blood Blood Culture - Preliminary No Growth after 24 hours 10/16/18 23:01 Blood Blood Culture - Final Assessment and Plan (1) Inferior vena cava thromboembolism Current Visit: Yes Status: Acute Code(s): I82.220 - ACUTE EMBOLISM AND THROMBOSIS OF INFERIOR VENA CAVA SNOMED Code(s): 646519150 (2) Fever Narrative/Plan: 83-year-old male with multiple medical troubles presents to hospital with increasing pain in his back increasing difficulties with ambulation and increasing weakness. The patient would imaging studies that revealed evidence of inferior vena cava thrombosis with evidence of extension to the iliacs bilaterally. Further workup as failed reloads of pulmonary embolus or deep venous thrombosis and to the lower extremities. The patient has recently completed a trip to [facility]. The patient was begun on Macrobid by his primary care physician but has not had improvement. Evidence of fever at admission evidence of positive urinalysis and urine culture and blood cultures are positive for E. coli. Given his history of a somewhat resistant pathogen meropenem has been started for the treatment of the current sepsis. Patient has been seen by oncology to further characterize the lesions in the liver with concern that they are malignant and metastatic in nature they will likely be been biopsied in the near future since he is on heparin drip that would need to be held for the biopsies by interventional radiology. The patient will likely go to extended care discharge to complete his course of antibiotic therapy that was required for his current sepsis. 10/18/2018 patient feeling slightly better today. Continues to have back pain but seems to be slightly better than yesterday. Has been seen by orthopedic spine as well as pain management. Interventional procedures are not possible this time due to the current inferior vena caval thrombosis and need for anticoagulation therapy. Patient also has active bacteremia and urinary infection which also preclude any invasive injection procedures at this time. Workup of the liver masses and process. Continue meropenem for now. Current Visit: Yes Status: Acute Code(s): R50.9 - FEVER, UNSPECIFIED SNOMED Code(s): 048123124 (3) E. coli sepsis Current Visit: Yes Status: Acute Code(s): A41.51 - SEPSIS DUE TO ESCHERICHIA COLI [E. COLI] SNOMED Code(s): 621293658
[2018-10-19] MEDS: HEPARIN SOD,PORK IN 0.45% NACL 25,000 UNIT in 0.45% NACL 1 500ML.BAG IV SCH (00:14)
[2018-10-19] MEDS: LEVOTHYROXINE 100 MCG TAB PO SCH (05:56)
--- NOTE | 2018-10-19 08:27 | P.PN ---
Progress Note - Text Progress Note Date: 10/19/18 Patient is a pleasant 83-year-old male who is seen and examined at bedside for further evaluation in regards to his low back pain and lower extremity radiculopathy. Since being seen and examined by Dr. Miguel Kirby he has been started on Solu-Medrol 60 mg IV twice a day. Since that time he states his pain has significantly improved. He is not currently experiencing significant low back pain or lower extremity radiculopathy. He has been seen and examined by pain management who states they're unable to perform epidural injections at this time due to the patient being on anticoagulation with a heparin drip. Patient is being treated for an inferior vena cava thrombosis. Patient is known have a history of prostate cancer. Imaging showed changes within the liver. Patient currently waiting for liver biopsy. Recent liver ultrasound results state liver is enlarged with 2 hypoechoic mass is suspicious for metastatic disease. Physical exam: Patient is awake, alert, and oriented 3 Vital signs stable Good chest excursion with deep inspiration and expiration Abdomen soft nontender Examination of lumbar spine reveals skin is intact with no abrasions, lacerations, or bruises; no erythema, purulence or signs of infection No significant pain on palpation over the thoracic or lumbar spine Dorsiflexion, plantarflexion, and extensor hallucis longus positive sustained bilaterally Lower extremity strength 5/5 bilaterally Patient is able to lift legs independently in bed without significant difficulty No signs or symptoms of DVT; no calf pain No pain with internal and external rotation of the hips bilaterally Neurovascularly intact Pertinent studies: Liver ultrasound: Enlarged liver with 2 hypoechoic mass is suspicious for metastatic disease Lumbar MRI: L4-5 herniated nucleus pulposus extruded fragment and slight grade 1 spondylolisthesis resulting in central canal stenosis and bilateral neural foraminal stenosis; no obvious fracture or bony lesion; report states evidence of liver lesions 2 Assessment: L4-5 herniated nucleus pulposus with extruded fragment L4-5 spinal canal stenosis and neural foraminal stenosis Recent history of lower extremity radiculopathy Acute low back pain resolving Liver lesions 2 History of prostate cancer 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 Plan: 1. Patient has had significant improvement in regards to his low back pain and lower extremity radiculopathy after receiving Solu-Medrol IV. We'll plan for a prednisone taper at the time of discharge. Prescription for prednisone taper has been prescribed, printed, signed, and placed in the patient's chart. At this time, we will plan to continue conservative treatment in regards to the patient's low back pain with lower extremity radiculopathy and known L4-5 herniated nucleus pulposus. We will plan have him follow up in outpatient setting approximately 2 weeks for further evaluation. We'll discuss the plan of care at that time depending he is progressing through conservative treatment. Patient has been discussed in detail with Dr. Miguel Kirby who agrees with this plan. 2. Patient will continue to follow with pain management and may plan to follow- up in the outpatient setting 3. Medicine and other providers will continue to follow patient closely for his other medical diagnoses including further evaluation of liver lesions 2 with a history of prostate cancer.
[2018-10-19 08:30] LABS: Basophils % (A) 0 %; Eosinophils % (A) 0 %; HCT 38.9 % (39.0-53.0); HGB 12.8 gm/dL (13.0-17.5); Lymphocytes # (A) 0.9 k/uL (1.0-4.8); Lymphocytes % (A) 11 %; MCV 87.8 fL (80.0-100.0); Monocytes # (A) 0.2 k/uL (0-1.0); Monocytes % (A) 2 %; Neutrophils # (A) 6.9 k/uL (1.3-7.7); Neutrophils % (A) 86 %; Platelet Count 351 k/uL (150-450); RBC 4.43 m/uL (4.30-5.90); RDW 13.9 % (11.5-15.5)
[2018-10-19 09:51] LABS: ALT 49 U/L (21-72); AST 32 U/L (17-59); Albumin 2.8 g/dL (3.5-5.0); Alkaline Phosphatase 141 U/L (38-126); Anion Gap 9 mmol/L; Blood Urea Nitrogen 22 mg/dL (9-20); Calcium 9.5 mg/dL (8.4-10.2); Carbon Dioxide 23 mmol/L (22-30); Chloride 103 mmol/L (98-107); Glucose 159 mg/dL (74-99); Potassium 4.3 mmol/L (3.5-5.1); Sodium 135 mmol/L (137-145); Total Bilirubin 0.6 mg/dL (0.2-1.3); Total Protein 6.4 g/dL (6.3-8.2)
[2018-10-19] MEDS: PANTOPRAZOLE 40 MG TABLET PO SCH (10:50)
[2018-10-19] MEDS: CHOLECALCIFEROL 1,000 UNIT TAB PO SCH (10:51)
[2018-10-19] MEDS: MEROPENEM 1 GM in SODIUM CHLORIDE 0.9% 100 ML IVPB SCH ×3 (10:51→23:54)
[2018-10-19] MEDS: methylPREDNISolone SOD SUCCI 125 MG/2 ML VIAL IV SCH ×2 (10:52→22:52)
[2018-10-19] MEDS: TAMSULOSIN 0.4 MG CAP.ER.24H PO SCH (10:55)
[2018-10-19] MEDS: HYDROcodone/APAP 5-325MG 1 EACH TAB PO PRN ×2 (10:55→18:36)
[2018-10-19] MEDS ORDERED: HYDROmorphone 1 MG/ML 1 ML SYRINGE IVP PRN (12:22)
[2018-10-19] MEDS: amLODIPine 10 MG TAB PO SCH (12:56)
[2018-10-19] MEDS: TRIAMTERENE-HCTZ 37.5-25MG 1 EACH CAP PO SCH (12:58)
[2018-10-19] MEDS: ATENOLOL 25 MG TAB PO SCH (12:58)
--- NOTE | 2018-10-19 13:11 | XR ---
EXAMINATION TYPE: XR chest 1V portable DATE OF EXAM: 10/19/2018 COMPARISON: 10/09/2017 HISTORY: Post liver biopsy dome of the liver TECHNIQUE: Single frontal view of the chest is obtained. FINDINGS: No sizable pneumothorax. Subsegmental linear changes lung bases most typical atelectasis. Hypertrophic and degenerative changes spine. No overt failure. Heart size normal. Atherosclerotic hailee nge aorta. Arthropathy of the shoulders. IMPRESSION: No sizable pneumothorax.
--- NOTE | 2018-10-19 13:25 | US ---
EXAMINATION TYPE: US biopsy liver DATE OF EXAM: 10/19/2018 COMPARISON: NONE HISTORY: Hepatic lesions The procedure was explained to the patient. The risks, complications, benefits, and alternatives wer e discussed and any questions were answered. Informed consent was obtained. Patient was placed supi ne on the CT table and prepped and draped in the usual sterile fashion. All elements of maximal barrier and sterile technique utilized. Utilizing CT guidance, an 22-gauge Chiba needle access into the right lobe of the liver was achieved and 2 samples were obtained. The patient was stable throughout the procedure and remained stable up on discharge from Department of radiology. Pathology pending. IMPRESSION: 1. Successful FNA biopsy right lobe hepatic lesion
--- NOTE | 2018-10-19 17:28 | P.PN ---
Subjective Progress Note Date: 10/18/18 Progress Note being dictated for Dr. Minor. Interval history: This 83-year-old gentleman admitted with acute DVT of the IVC , bilateral iliac vein thrombosis, back pain, liver lesion, elevated LFTs and multiple other medical issues. Maintained on IV heparin drip, IV antibiotics. Orthopedic consult in place with recommendations pending. 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 Evaluated by pain management services with recommendations noted -outpatient lumbar epidural steroid injection secondary to anticoagulation & bacteremia. T-max 100.3. Liver MRI reporting liver lesions, suspicious for malignancy, no pancreatic mass, nonenhancing 1.5 cm focus on the cortex upper pole right kidney, with no suspicious renal mass seen , liver ultrasound corresponded with CT, liver biopsy pending. Maintaining O2 sats in the low 90s on room air. Review of Systems: CV: No chest pain, palpitations or angina Respiratory: Denies shortness of breath at this time GI: As mentioned Earlier : No dysuria TAIL EDGER: No numbness, weakness Active Medications Acetaminophen (Tylenol Tab) 650 mg PO Q6HR PRN PRN Reason: Fever and/ or Pain Last Admin: 10/17/18 23:57 Dose: 650 mg Hydrocodone Bitart/Acetaminophen ([place]ub[place] 5-325) 1 each PO Q4HR PRN PRN Reason: Moderate Pain Last Admin: 10/19/18 10:55 Dose: 1 each Alprazolam (Xanax) 0.25 mg PO TID PRN PRN Reason: Anxiety Amlodipine Besylate (Norvasc) 10 mg PO DAILY [facility] Last Admin: 10/19/18 12:56 Dose: Not Given Atenolol (Tenormin) 25 mg PO DAILY DIPESH Last Admin: 10/19/18 12:58 Dose: Not Given Cholecalciferol (Vitamin D3) 1,000 unit PO DAILY DIP[facility] Last Admin: 10/19/18 10:51 Dose: 1,000 unit Heparin Sodium (Porcine) (Heparin) 0 unit IV PER PROTOCOL PRN; Protocol PRN Reason: Low PTT Last Admin: 10/17/18 21:51 Dose: 7,240 unit Hydromorphone HCl (Dilaudid) 0.25 mg IVP Q3H PRN PRN Reason: Moderate Pain Last Admin: 10/18/18 12:05 Dose: 0.25 mg Hydromorphone HCl (Dilaudid) 0.5 mg IVP Q1HR PRN PRN Reason: SEVERE Pain Stop: 10/20/18 12:22 Last Admin: 10/19/18 12:25 Dose: 0.5 mg Heparin Sodium/Sodium Chloride (25,000 unit/ Sodium Chloride) 500 mls @ 32.65 mls/hr IV .[id number] [facility]; Protocol Last Admin: 10/19/18 00:14 Dose: 28 units/kg/hr, 50.8 mls/hr Sodium Chloride (Saline 0.9%) 1,000 mls @ 20 mls/hr IV .Q24H [facility] Last Admin: 10/18/18 13:48 Dose: 20 mls/hr [place]open[place] 1 gm/ Sodium (Chloride) 100 mls @ 200 mls/hr IVPB Q8HR [facility]; Protocol Last Admin: 10/19/18 16:25 Dose: 200 mls/hr Ceftriaxone Sodium 1,000 mg/ (Sodium Chloride) 50 mls @ 100 mls/hr IVPB Q24H [facility] Last Admin: 10/18/18 17:35 Dose: 100 mls/hr Levothyroxine Sodium (Synthroid) 100 mcg PO DAILY@0630 [facility] Last Admin: 10/19/18 05:56 Dose: 100 mcg Melatonin (Melatonin) 3 mg PO HS PRN PRN Reason: Insomnia Methylprednisolone Sodium Succinate (Solu-Medrol) 60 mg IV Q12HR [facility] Last Admin: 10/19/18 10:52 Dose: 60 mg Naloxone HCl (Narcan) 0.2 mg IV Q2M PRN PRN Reason: Opioid Reversal Pantoprazole Sodium (Protonix) 40 mg PO AC-BRKFST [facility] Last Admin: 10/19/18 10:50 Dose: 40 mg Polyethylene Glycol (Miralax) 17 gm PO DAILY [facility] Senna/Docusate Sodium (Senokot-S) 1 each PO BID [facility] Tamsulosin HCl (Flomax) 0.4 mg PO DAILY [facility] Last Admin: 10/19/18 10:55 Dose: 0.4 mg Temazepam (Restoril) 15 mg PO HS PRN PRN Reason: Insomnia Triamterene/HCTZ (Dyazide) 1 each PO DAILY [facility] Last Admin: 10/19/18 12:58 Dose: Not Given Objective - Vital Signs Vital signs: Vital Signs Temp 98.9 F 10/18/18 16:00 Pulse 60 10/18/18 16:00 Resp 16 10/18/18 16:00 BP 102/60 10/18/18 16:00 Pulse Ox 93 L 10/18/18 16:00 Intake & Output 10/18/18 10/18/18 10/19/18 06:59 18:59 06:59 Intake Total 854.079 500 Output Total 600 Balance 854.079 -100 Intake: Intake, IV Titration 334.079 500 Amount Heparin Sod,Pork in 0.45% 184.079 500 NaCl 25,000 unit In 0.45 % NaCl 1 500ml.bag @ 18 UNITS/KG/HR 32.65 mls/hr IV .[id number] [facility] Rx#: [id number] Sodium Chloride 0.9% 1, 150 000 ml @ 20 mls/hr IV . Q24H [facility] Rx#:[id number] Oral 520 Output: Urine 600 Other: Voiding Method Urinal Urinal # Voids 3 - Exam PHYSICAL EXAM: VITAL SIGNS: As above GENERAL: Sitting up in bed, complaining of back pain HEENT: Conjunctivae normal. eyes normal. Oral mucosa moist NECK: No JVD. No thyroid enlargement. No LNs CARDIOVASCULAR: S1, S2 muffled. No murmur RESPIRATION: Breath sounds diminished in the bases. No rhonchi or crackles. No wheezing ABDOMEN: Soft, nontender . No guarding. no masses palpable. Bowel sounds heard. LEGS: No edema. no swelling PSYCHIATRY: Alert and oriented -3, mood and affect normal. NERVOUS SYSTEM: Cranial N 2-12 grossly normal. Moves all 4 limbs. Diffuse weakness No focal deficits. Skin: no rash, no lesions Microbiology 10/16/18 14:40 Urine,Voided Urine Culture - Final Escherichia coli 10/16/18 23:01 Blood Blood Culture Gram Stain - Final 10/16/18 23:01 Blood Blood Culture - Final Escherichia coli 10/17/18 17:24 Blood Blood Culture - Preliminary No Growth after 24 hours 10/16/18 23:01 Blood Blood Culture - Final - Labs CBC & Chem 7: 10/19/18 07:49 10/19/18 07:49 Labs: Abnormal Lab Results - Last 24 Hours (Table) 10/17/18 10/18/18 10/18/18 Range/Units 09:46 04:16 04:16 RBC 4.11 L (4.30-5.90) m/uL Hgb 11.7 L (13.0-17.5) gm/dL Hct 36.3 L (39.0-53.0) % APTT (22.0-30.0) sec Sodium 135 L (137-145) mmol/L Glucose 104 H (74-99) mg/dL Alkaline Phosphatase 145 H (38-126) U/L Total Protein 6.0 L (6.3-8.2) g/dL Albumin 2.6 L (3.5-5.0) g/dL CA 19-9 Antigen (0.0-34.9) U/mL Total PSA 26.0 H (<=4.0) ng/mL 10/18/18 10/18/18 Range/Units 04:16 04:16 RBC (4.30-5.90) m/uL Hgb (13.0-17.5) gm/dL Hct (39.0-53.0) % APTT 67.6 H (22.0-30.0) sec Sodium (137-145) mmol/L Glucose (74-99) mg/dL Alkaline Phosphatase (38-126) U/L Total Protein (6.3-8.2) g/dL Albumin (3.5-5.0) g/dL CA 19-9 Antigen 223.2 H (0.0-34.9) U/mL Total PSA (<=4.0) ng/mL Microbiology - Last 24 Hours (Table) 10/17/18 17:24 Blood Culture - Preliminary Blood No Growth after 24 hours 10/16/18 14:40 Urine Culture - Preliminary Urine,Voided Gram Neg Bacilli 10/16/18 23:01 Blood Culture Gram Stain - Preliminary Blood Blood Culture - Preliminary Escherichia coli Assessment and Plan Assessment: -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 Plan: Continue on current medication regime ,monitoring and symptomatic treatment. Currently anticoagulated on heparin drip. Orthopedic spinal surgery evaluation/recommendations pending. Continue on IV antibiotics as per infectious disease. Liver mass workup in progress, liver biopsy possibly tomorrow. Follow with multiple consults closely. Prognosis guarded given multiple complex medical issues. The impression and plan of care has been dictated as directed. : I performed a history and examination of this patient, discussed the same with the dictator. I agree with the dictator's note ,documented as a scribe. Any additional findings or plans will be noted.
[2018-10-19] MEDS: SODIUM CHLORIDE 0.9% 1,000 ML IV SCH (17:38)
--- NOTE | 2018-10-19 18:56 | PN ---
PROGRESS NOTE DATE OF SERVICE: 10/19/2018 This 83-year-old gentleman was admitted with multiple medical problems, including acute DVT in IVC and bilateral iliac veins also, on heparin. Patient was also found to have E coli sepsis, on top of which the patient also had multiple lesions in the liver. Liver biopsy was done. heparin drip at this time. The patient is being closely monitored. Patient is on broad-spectrum IV antibiotics. Multiple consultants are following the patient closely. The most recent chest x-ray which was done today showed no acute abnormality. Past medical history reviewed. REVIEW OF SYSTEMS: CARDIOVASCULAR SYSTEM: No angina, palpitations. RESPIRATORY SYSTEM: As mentioned earlier. GI: No nausea, vomiting. : No dysuria or retention. NERVOUS SYSTEM: No numbness, weakness. CURRENT MEDICATIONS: Reviewed. They include: 1. Tylenol 650 q.6 p.r.n. 2. [place] 5 mg q.4 p.r.n. 3. Xanax 0.25 t.i.d. 4. Norvasc 10 mg daily. 5. Tenormin 25 mg daily. 6. Rocephin 1 gram daily. 7. Vitamin D3 1000 mg p.o. daily. 8. Heparin p.r.n. 9. Heparin drip on hold. 10.Dilaudid 0.25 mg q.3 p.r.n. 11.Synthroid 100 mcg p.o. daily. 12.Melatonin 3 mg at bedtime p.r.n. 13.Meropenem 1 gram IV daily. 14.Solu-Medrol 60 IV b.i.d. 15.Narcan 0.2 q.2 p.r.n. 16.Protonix 40 mg daily. 17.Miralax 17 grams daily. 18.Senokot-S one tablet p.o. daily. 19.Flomax 0.4 daily. 20.Restoril 15 mg at bedtime p.r.n. 21.Dyazide 1 tablet p.o. daily. PHYSICAL EXAMINATION: Patient is alert and oriented x3. Pulse 70, blood pressure 112/64, respiration normal, pulse ox 93% on room air. HEENT: Conjunctivae normal. Oral mucosa moist. NECK: No jugular venous distention. No carotid bruit. No lymph node enlargement. CARDIOVASCULAR SYSTEM: S1, S2 muffled. RESPIRATORY SYSTEM: Breath sounds diminished at the bases. A few scattered rhonchi. No crackles. ABDOMEN: Soft. Status post biopsy. LEGS: No edema. No swelling. NERVOUS SYSTEM: Higher functions as mentioned earlier. Moves all 4 limbs. No focal motor or sensory deficit. LYMPHATICS: No lymph node palpable in neck, axillae or groin. SKIN: No ulcer, rash, bleeding. LABS: WBC 8, hemoglobin 12.8, sodium 135. Potassium 4.3. Alkaline phosphatase 141. Total protein 6.4. Albumin is 2.8. CA19-9 is 223.2. ASSESSMENT: 1. Acute deep vein thrombosis of the IVC as well as bilateral iliac vein thrombosis. 2. Back pain for evaluation. 3. Acute urinary tract infection with fever with possible Escherichia coli sepsis. 4. Status post liver biopsy. 5. Elevated CA19-9. 6. Elevated ALT, alkaline phosphatase. 7. Liver lesion measuring 4 cm. 8. Hyponatremia. 9. History of recent urinary tract infection, on antibiotics. 10.History of gastroesophageal reflux disease. 11.Hypertension. 12.History of prostate disorder. 13.History of hypothyroidism. 14.History of adenoidectomy. 15.History of degenerative joint disease. 16.History of parathyroid surgery. 17.History of esophageal surgery for achalasia. 18.History of varicose veins. 19.Bilateral cataracts. 20.FULL CODE. RECOMMENDATIONS AND DISCUSSION: I recommend to continue current medication, continue with the monitoring, symptomatic treatment. Heparin to be restarted. The patient also had elevated CA19-9. Continue to monitor. Hematology/oncology evaluation has been also sought. Otherwise, repeat blood cultures are negative so far. Further recommendations to follow. MMODL / IJN: [id number] / [facility]
--- NOTE | 2018-10-19 19:51 | P.PN ---
Subjective Progress Note Date: 10/19/18 The patient reports some improvement in his back and leg pain. No obvious bleeding noted. No fevers or chills, nausea or vomiting currently. Objective - Vital Signs Vital signs: Vital Signs Temp 97.0 F L 10/19/18 11:55 Pulse 70 10/19/18 13:00 Resp 18 10/19/18 11:55 BP 112/64 10/19/18 13:00 Pulse Ox 93 L 10/19/18 13:00 Intake & Output 10/19/18 10/19/18 10/20/18 06:59 18:59 06:59 Intake Total 590 670 Output Total 1100 1150 Balance -510 -480 Intake: IV 90 Invasive Line 1 90 Intake, IV Titration 500 Amount Heparin Sod,Pork in 0.45% 500 NaCl 25,000 unit In 0.45 % NaCl 1 500ml.bag @ 18 UNITS/KG/HR 32.65 mls/hr IV .[id number] [facility] Rx#: [id number] Oral 670 Output: Urine 1100 1150 Other: Voiding Method Urinal Incontinent # Voids 1 - Constitutional General appearance: Present: no acute distress - EENT Eyes: Present: EOMI ENT: Present: hearing grossly normal, normal oropharynx - Respiratory Respiratory: bilateral: CTA - Cardiovascular Rhythm: regular Heart sounds: normal: S1, S2 - Gastrointestinal General gastrointestinal: Present: normal bowel sounds, soft - Integumentary Integumentary: Present: normal - Neurologic Neurologic: Present: CNII-XII intact - Musculoskeletal Musculoskeletal: Present: generalized weakness, strength equal bilaterally, right sided weakness (Right lower extremity, improved) - Psychiatric Psychiatric: Present: A&O x's 3, appropriate affect - Labs CBC & Chem 7: 10/19/18 07:49 10/19/18 07:49 Labs: Abnormal Lab Results - Last 24 Hours (Table) 10/19/18 10/19/18 10/19/18 Range/Units 07:49 07:49 07:49 Hgb 12.8 L (13.0-17.5) gm/dL Hct 38.9 L (39.0-53.0) % Lymphocytes # 0.9 L (1.0-4.8) k/uL APTT 81.1 H (22.0-30.0) sec Sodium 135 L (137-145) mmol/L BUN 22 H (9-20) mg/dL Glucose 159 H (74-99) mg/dL Alkaline Phosphatase 141 H (38-126) U/L Albumin 2.8 L (3.5-5.0) g/dL Microbiology - Last 24 Hours (Table) 10/17/18 17:24 Blood Culture - Preliminary Blood No Growth after 48 hours 10/16/18 23:01 Blood Culture Gram Stain - Final Blood Blood Culture - Final Escherichia coli 10/16/18 14:40 Urine Culture - Final Urine,Voided Escherichia coli Assessment and Plan (1) Liver mass Narrative/Plan: Given the patient's presentation with significant thrombosis, as well as elevated tumor marker, there is high clinical suspicion for this mass to be malignant. This is supported by the MRI appearance. The patient is status post liver biopsy. We will await those results. He denied any history of malignancy previously. He is up-to-date with his colonoscopy Current Visit: Yes Status: Acute Code(s): R16.0 - HEPATOMEGALY, NOT ELSEWHERE CLASSIFIED SNOMED Code(s): 434952855 (2) Inferior vena cava thromboembolism Narrative/Plan: At this time this is felt to be precipitated by malignancy. The patient is being treated with IV heparin, which was continued so that he could have his liver biopsy. None of the biopsy has been completed, the patient stay stable overnight without evidence of any bleeding, he can be switched over to orals in the a.m. Defer to the admitting service as to the choice of orals. If one of the newer direct factor inhibitors or covered for him, these would be an appropriate choice. In that case heparin can be stopped at the same time as he receives his first dose. Current Visit: Yes Status: Acute Code(s): I82.220 - ACUTE EMBOLISM AND THROMBOSIS OF INFERIOR VENA CAVA SNOMED Code(s): 353933990 (3) E. coli sepsis Narrative/Plan: [place] to be likely from urinary source. He is currently on antibiotics with improvement in fever pattern. Defer to ID for continued management Current Visit: Yes Status: Acute Code(s): A41.51 - SEPSIS DUE TO ESCHERICHIA COLI [E. COLI] SNOMED Code(s): 406763615
[2018-10-19] MEDS: SENNOSIDES-DOCUSATE SODIUM 1 EACH TAB PO SCH (22:52)
[2018-10-20] MEDS: HYDROcodone/APAP 5-325MG 1 EACH TAB PO PRN ×4 (05:58→19:36)
[2018-10-20] MEDS: LEVOTHYROXINE 100 MCG TAB PO SCH (05:58)
[2018-10-20 07:20] LABS: Basophils % (A) 0 %; Eosinophils % (A) 0 %; HCT 38.2 % (39.0-53.0); HGB 12.1 gm/dL (13.0-17.5); Lymphocytes # (A) 0.8 k/uL (1.0-4.8); Lymphocytes % (A) 6 %; MCH 27.8 pg (25.0-35.0); MCHC 31.7 g/dL (31.0-37.0); MCV 87.8 fL (80.0-100.0); Mean Platelet Volume 6.9; Monocytes # (A) 0.3 k/uL (0-1.0); Monocytes % (A) 2 %; Neutrophils # (A) 12.4 k/uL (1.3-7.7); Neutrophils % (A) 91 %; Platelet Count 379 k/uL (150-450); RBC 4.35 m/uL (4.30-5.90); RDW 13.9 % (11.5-15.5); WBC 13.6 k/uL (3.8-10.6)
[2018-10-20 07:27] LABS: ALT 64 U/L (21-72); AST 42 U/L (17-59); Albumin 2.7 g/dL (3.5-5.0); Alkaline Phosphatase 125 U/L (38-126); Anion Gap 8 mmol/L; Blood Urea Nitrogen 26 mg/dL (9-20); Calcium 9.6 mg/dL (8.4-10.2); Carbon Dioxide 23 mmol/L (22-30); Chloride 105 mmol/L (98-107); Glucose 164 mg/dL (74-99); Potassium 4.5 mmol/L (3.5-5.1); Sodium 136 mmol/L (137-145); Total Bilirubin 0.5 mg/dL (0.2-1.3); Total Protein 6.3 g/dL (6.3-8.2)
[2018-10-20] MEDS: MEROPENEM 1 GM in SODIUM CHLORIDE 0.9% 100 ML IVPB SCH ×3 (08:28→23:58)
[2018-10-20] MEDS: CHOLECALCIFEROL 1,000 UNIT TAB PO SCH (08:29)
[2018-10-20] MEDS: ATENOLOL 25 MG TAB PO SCH (08:29)
[2018-10-20] MEDS: TAMSULOSIN 0.4 MG CAP.ER.24H PO SCH (08:29)
[2018-10-20] MEDS: PANTOPRAZOLE 40 MG TABLET PO SCH (08:29)
[2018-10-20] MEDS: methylPREDNISolone SOD SUCCI 125 MG/2 ML VIAL IV SCH ×2 (08:30→20:54)
[2018-10-20] MEDS: POLYETHYLENE GLYCOL 3350 17 GM POWD.PACK PO SCH (08:36)
[2018-10-20] MEDS: TRIAMTERENE-HCTZ 37.5-25MG 1 EACH CAP PO SCH (08:36)
[2018-10-20] MEDS: amLODIPine 10 MG TAB PO SCH (08:36)
[2018-10-20] MEDS: SENNOSIDES-DOCUSATE SODIUM 1 EACH TAB PO SCH ×2 (08:43→20:54)
--- NOTE | 2018-10-20 11:16 | P.PN ---
Subjective Progress Note Date: 10/20/18 Principal diagnosis: e-coli sepsis/UTI, IVC thrombosis, liver lesions Pt seen in f/u, s/p liver biopsy, he denies pain at the biopsy site, he feels more alert, appetite is improving, no more "sweats", breathing comfortably, he took something for constipation this AM, he denies any bleeding. Objective - Vital Signs Vital signs: Vital Signs Temp 97.5 F L 10/20/18 04:27 Pulse 64 10/20/18 08:20 Resp 16 10/20/18 08:20 BP 109/62 10/20/18 04:27 Pulse Ox 97 10/20/18 04:27 Intake & Output 10/19/18 10/20/18 10/20/18 18:59 06:59 18:59 Intake Total 670 860 Output Total 1150 Balance -480 860 Intake: Intake, IV Titration 160 Amount Sodium Chloride 0.9% 1, 160 000 ml @ 20 mls/hr IV . Q24H [facility] Rx#:[id number] Oral 670 700 Output: Urine 1150 Other: Voiding Method Incontinent Incontinent Incontinent # Voids 1 2 - Constitutional General appearance: Present: average body habitus, cooperative, no acute distress - EENT EENT Comment(s): dry mucus membranes Eyes: Present: anicteric sclerae, EOMI ENT: Present: hearing grossly normal - Respiratory Respiratory: bilateral: CTA - Cardiovascular Rhythm: regular Heart sounds: normal: S1, S2 - Peripheral edema leg Peripheral Edema: bilateral: None - Gastrointestinal General gastrointestinal: Present: distended, normal bowel sounds, soft - Neurologic Neurologic: Present: CNII-XII intact - Musculoskeletal Musculoskeletal: Present: generalized weakness - Psychiatric Psychiatric: Present: A&O x's 3, appropriate affect, intact judgment & insight - Labs CBC & Chem 7: 10/20/18 06:49 10/20/18 06:49 Labs: Abnormal Lab Results - Last 24 Hours (Table) 10/20/18 10/20/18 Range/Units 06:49 06:49 WBC 13.6 H (3.8-10.6) k/uL Hgb 12.1 L (13.0-17.5) gm/dL Hct 38.2 L (39.0-53.0) % Neutrophils # 12.4 H (1.3-7.7) k/uL Lymphocytes # 0.8 L (1.0-4.8) k/uL Sodium 136 L (137-145) mmol/L BUN 26 H (9-20) mg/dL Glucose 164 H (74-99) mg/dL Albumin 2.7 L (3.5-5.0) g/dL Microbiology - Last 24 Hours (Table) 10/17/18 17:24 Blood Culture - Preliminary Blood No Growth after 48 hours 10/16/18 23:01 Blood Culture Gram Stain - Final Blood Blood Culture - Final Escherichia coli Assessment and Plan (1) Inferior vena cava thromboembolism Narrative/Plan: Pt is s/p liver biopsy, instructions from anesthesiologist per nursing are for hep drip to be resumed this afternoon. Ok to transition of oral anticoagulant choice per Attending. Current Visit: Yes Status: Acute Priority: High Code(s): I82.220 - ACUTE EMBOLISM AND THROMBOSIS OF INFERIOR VENA CAVA SNOMED Code(s): 983732240 (2) Liver mass Narrative/Plan: S/P liver biopsy, path pending. Pt will f/u with Dr. Singletary for results and plan as indicated by diagnosis. Current Visit: Yes Status: Acute Priority: High Code(s): R16.0 - HEPATOMEGALY, NOT ELSEWHERE CLASSIFIED SNOMED Code(s): 302495143
[2018-10-20] MEDS: HEPARIN SOD,PORK IN 0.45% NACL 25,000 UNIT in 0.45% NACL 1 500ML.BAG IV SCH (16:14)
[2018-10-20] MEDS: SODIUM CHLORIDE 0.9% 1,000 ML IV SCH (16:29)
[2018-10-20] MEDS: HEPARIN SODIUM,PORCINE 5,000 UNIT/ML 1 ML VIAL IV PRN (23:59)
--- NOTE | 2018-10-21 01:32 | PN ---
PROGRESS NOTE DATE OF SERVICE: 10/20/2018 This is an 83-year-old gentleman who was admitted with inferior vena caval and deep vein thrombosis of the bilateral leg veins. Also had back pain. The patient had evaluations and liver biopsies done. Heparin is on hold at this time, to be started in few hours. No chest pain. No palpitations. No fever. EXAM: Alert and oriented. Pulse 61, blood pressure 120/60, respiratory 22, temperature 97.4, pulse ox 93% on room air. HEENT: Conjunctivae normal. Oral mucosa moist. NECK: No jugular venous distention. No lymph node enlargement. CARDIOVASCULAR: S1, S2. RESPIRATORY: Diminished breath sounds at the bases. No rhonchi, no crackles. ABDOMEN: Soft, nontender. LEGS: No swelling. NERVOUS SYSTEM: No focal deficits. LABS: WBC 13.2, hemoglobin 12.1, sodium 136. ASSESSMENT: 1. Acute deep vein thrombosis of the IVC as well as bilateral iliac vein thrombosis on heparin drip. 2. Abnormal liver lesions, status post liver biopsy. 3. Back pain for possible DJD. 4. Acute urinary tract infection with fever with possible Escherichia coli sepsis. 5. Elevated CA 99. 6. Elevated ALT and alkaline phosphatase. 7. Hyponatremia. 8. History of recent urinary tract infection with antibiotics. 9. History of gastroesophageal reflux disease. 10.Hypertension. 11.History of prostate disorder. 12.History of hypothyroidism. 13.History of adenoidectomy. 14.History of degenerative joint disease. 15.History of parathyroid surgery. 16.History of surgery for achalasia. 17.History of varicose veins. 18.Bilateral cataracts. 19.FULL CODE. RECOMMENDATIONS: Recommend to continue current management. Continue symptomatic treatment. Continue with broad-spectrum IV antibiotics. The most recent blood cultures are negative so far. Otherwise, we will continue to monitor. Will start the IV heparin and to be followed by oral anticoagulation later. Further recommendation to follow. MMODL / IJN: [id number] /
[2018-10-21] MEDS: HEPARIN SOD,PORK IN 0.45% NACL 25,000 UNIT in 0.45% NACL 1 500ML.BAG IV SCH ×2 (05:31→18:16)
[2018-10-21] MEDS: LEVOTHYROXINE 100 MCG TAB PO SCH (05:32)
[2018-10-21] MEDS: HYDROcodone/APAP 5-325MG 1 EACH TAB PO PRN ×2 (05:32→21:13)
[2018-10-21 07:50] LABS: Basophils % (A) 0 %; Eosinophils % (A) 0 %; HCT 38.3 % (39.0-53.0); HGB 12.1 gm/dL (13.0-17.5); Lymphocytes % (A) 9 %; MCH 28.1 pg (25.0-35.0); MCHC 31.5 g/dL (31.0-37.0); MCV 89.1 fL (80.0-100.0); Mean Platelet Volume 7.6; Monocytes # (A) 0.4 k/uL (0-1.0); Monocytes % (A) 3 %; Neutrophils # (A) 9.8 k/uL (1.3-7.7); Neutrophils % (A) 87 %; Platelet Count 357 k/uL (150-450); RBC 4.29 m/uL (4.30-5.90); WBC 11.3 k/uL (3.8-10.6)
[2018-10-21 08:01] LABS: ALT 79 U/L (21-72); AST 51 U/L (17-59); Albumin 2.7 g/dL (3.5-5.0); Alkaline Phosphatase 121 U/L (38-126); Anion Gap 5 mmol/L; Blood Urea Nitrogen 26 mg/dL (9-20); Calcium 9.2 mg/dL (8.4-10.2); Carbon Dioxide 26 mmol/L (22-30); Chloride 106 mmol/L (98-107); Glucose 134 mg/dL (74-99); Potassium 4.8 mmol/L (3.5-5.1); Sodium 137 mmol/L (137-145); Total Bilirubin 0.4 mg/dL (0.2-1.3); Total Protein 6.1 g/dL (6.3-8.2)
[2018-10-21] MEDS: MEROPENEM 1 GM in SODIUM CHLORIDE 0.9% 100 ML IVPB SCH ×2 (09:12→17:09)
[2018-10-21] MEDS: TAMSULOSIN 0.4 MG CAP.ER.24H PO SCH (09:12)
[2018-10-21] MEDS: ATENOLOL 25 MG TAB PO SCH (09:12)
[2018-10-21] MEDS: TRIAMTERENE-HCTZ 37.5-25MG 1 EACH CAP PO SCH (09:12)
[2018-10-21] MEDS: SENNOSIDES-DOCUSATE SODIUM 1 EACH TAB PO SCH ×3 (09:12→21:13)
[2018-10-21] MEDS: amLODIPine 10 MG TAB PO SCH (09:12)
[2018-10-21] MEDS: PANTOPRAZOLE 40 MG TABLET PO SCH (09:12)
[2018-10-21] MEDS: CHOLECALCIFEROL 1,000 UNIT TAB PO SCH (09:12)
[2018-10-21] MEDS: methylPREDNISolone SOD SUCCI 125 MG/2 ML VIAL IV SCH ×2 (09:13→21:12)
[2018-10-21] MEDS: POLYETHYLENE GLYCOL 3350 17 GM POWD.PACK PO SCH (09:13)
[2018-10-21] MEDS: SODIUM CHLORIDE 0.9% 1,000 ML IV SCH (17:10)
--- NOTE | 2018-10-21 18:58 | PN ---
PROGRESS NOTE DATE OF SERVICE: 10/21/2018 This 83-year-old gentleman was admitted with acute DVT with IVC filter in the external and internal iliac arteries being closely monitored. Patient also had pancreatic lesion as well as evaluation. Liver biopsy has been done at this time. The patient is on IV heparin. Patient closely monitored at this time. PAST MEDICAL HISTORY: Reviewed. REVIEW OF SYSTEMS: CARDIOVASCULAR: No angina, otherwise as mentioned. RESPIRATORY: As mentioned earlier. GI: No nausea. : As mentioned earlier. NERVOUS SYSTEM: No numbness or weakness. CURRENT MEDICATIONS: Reviewed and include: 1. Tylenol 650 q.6h p.r.n. 2. Lohn 5 mg q.4h p.r.n. 3. Xanax 0.5 t.i.d. 4. Norvasc 10 mg p.o. daily. 5. Tenormin 25 mg p.o. daily. 6. Rocephin 1 g IV daily. 7. Vitamin D 3000 daily. 8. Heparin. 9. Dilaudid 0.5 q.3h p.r.n. 10.Synthroid 100 mcg p.o. daily. 11.Melatonin 3 mg q.h.s. p.r.n. 12.Meropenem 1 g IV q.8h. 13.Solu-Medrol 60 IV b.i.d. 14.Narcan 0.2 q.2h. 15.Protonix 40 mg b.i.d. 16.MiraLAX 17 g daily. 17.Senokot-S 1 tablet p.o. daily. 18.Flomax 0.4 daily. 19.Restoril 50 mg q.h.s. p.r.n. 20.Dyazide 1 p.o. daily. PHYSICAL EXAM: Patient is alert, oriented x2. Pulse is 61, blood pressure 190/70, respirations 16, temperature 97.4, pulse ox 94% on room air. HEENT: Conjunctivae normal. Oral mucosa moist. Neck is no jugular venous distention. No carotid bruit. No lymph node enlargement. CARDIOVASCULAR: S1, S2. RESPIRATORY: Breath sounds diminished in the bases. A few scattered rhonchi. ABDOMEN: Soft. Mild diffuse distention. Nontender. No mass. No guarding. No rigidity. LEGS: No edema. NERVOUS SYSTEM: No focal deficits. LABS: WBC 11.2, hemoglobin 12.1, stable. Sodium 137, potassium 4.8, and albumin is 2.7. ASSESSMENT: 1. 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 2. Abnormal liver lesions, status post liver biopsy. 3. Back pain for possible degenerative joint disease. 4. Acute urinary tract infection with fever with possibly E. Coli and sepsis. 5. Elevated CA 19-9. 6. Elevated ALT, alkaline phosphatase. 7. Hyponatremia. 8. History of recent urinary tract infection with antibiotics. 9. History of gastroesophageal reflux disease. 10.Hypertension. 11.History of prostate disorder. 12.Hypothyroidism. 13.History of adenoidectomy. 14.History of degenerative joint disease. 15.History of parathyroid surgery. 16.History of surgery for. 17.History of varicose veins. 18.Bilateral cataract. 19.FULL CODE. RECOMMENDATIONS AND DISCUSSION: I recommend to continue current management, continue monitoring and symptomatic treatment. Otherwise at this time we will monitor the patient closely. Otherwise, I would recommend continue with current medications, continue with symptomatic treatment and I would also recommend continue with antibiotics. Await biopsy report. I also had a detailed discussion with the family at this time. The family has issues about going home because the cannot drive. I would recommend PT, OT evaluation and social media marketing analyst evaluation and possibly ECF rehab or AFC home. The prognosis guarded because of multiple complex medical issues. Further recommendations to follow. Closely follow with multiple consultants. ALONDRA / JOHAN: [id number] / PHIL
[2018-10-21 20:13] LABS: Glucose,Whole Blood 135 mg/dL (75-99)
[2018-10-22] MEDS: MEROPENEM 1 GM in SODIUM CHLORIDE 0.9% 100 ML IVPB SCH ×3 (00:41→16:38)
[2018-10-22] MEDS: LEVOTHYROXINE 100 MCG TAB PO SCH (08:01)
[2018-10-22] MEDS: TAMSULOSIN 0.4 MG CAP.ER.24H PO SCH (08:02)
[2018-10-22] MEDS: POLYETHYLENE GLYCOL 3350 17 GM POWD.PACK PO SCH (08:02)
[2018-10-22] MEDS: methylPREDNISolone SOD SUCCI 125 MG/2 ML VIAL IV SCH ×2 (08:02→21:02)
[2018-10-22] MEDS: TRIAMTERENE-HCTZ 37.5-25MG 1 EACH CAP PO SCH (08:02)
[2018-10-22] MEDS: ATENOLOL 25 MG TAB PO SCH (08:04)
[2018-10-22] MEDS: amLODIPine 10 MG TAB PO SCH (08:04)
[2018-10-22] MEDS: CHOLECALCIFEROL 1,000 UNIT TAB PO SCH (08:05)
[2018-10-22] MEDS: PANTOPRAZOLE 40 MG TABLET PO SCH (08:05)
[2018-10-22 09:39] LABS: ALT 99 U/L (21-72); AST 48 U/L (17-59); Alkaline Phosphatase 134 U/L (38-126); Anion Gap 8 mmol/L; Blood Urea Nitrogen 24 mg/dL (9-20); Calcium 9.6 mg/dL (8.4-10.2); Carbon Dioxide 24 mmol/L (22-30); Chloride 105 mmol/L (98-107); Glucose 155 mg/dL (74-99); Sodium 137 mmol/L (137-145); Total Bilirubin 0.6 mg/dL (0.2-1.3); Total Protein 6.7 g/dL (6.3-8.2)
[2018-10-22 09:44] LABS: Basophils % (A) 0 %; Eosinophils % (A) 0 %; HCT 42.2 % (39.0-53.0); HGB 13.5 gm/dL (13.0-17.5); Lymphocytes # (A) 1.4 k/uL (1.0-4.8); Lymphocytes % (A) 12 %; MCH 28.4 pg (25.0-35.0); MCV 88.8 fL (80.0-100.0); Monocytes # (A) 0.5 k/uL (0-1.0); Monocytes % (A) 4 %; Neutrophils # (A) 9.7 k/uL (1.3-7.7); Neutrophils % (A) 83 %; Platelet Count 421 k/uL (150-450); RBC 4.76 m/uL (4.30-5.90); RDW 14.3 % (11.5-15.5); WBC 11.8 k/uL (3.8-10.6)
[2018-10-22] MEDS: HEPARIN SOD,PORK IN 0.45% NACL 25,000 UNIT in 0.45% NACL 1 500ML.BAG IV SCH (10:11)
[2018-10-22 11:09] LABS: Hemoglobin A1C 6.1 % (4.0-6.0)
[2018-10-22 11:39] LABS: Glucose,Whole Blood 136 mg/dL (75-99)
[2018-10-22] MEDS: RIVAROXABAN 15 MG TAB PO SCH (16:39)
[2018-10-22] MEDS: SODIUM CHLORIDE 0.9% 1,000 ML IV SCH (16:47)
[2018-10-22] MEDS: SENNOSIDES-DOCUSATE SODIUM 1 EACH TAB PO SCH (21:03)
--- NOTE | 2018-10-22 21:40 | PN ---
PROGRESS NOTE DATE OF SERVICE: 10/22/2018. HISTORY: This 83-year-old gentleman who was admitted with acute DVT of the inferior vena cava and bilateral iliac vein thrombus, also had abnormal liver lesion. The patient is status post liver biopsy. No chest pain. No palpitations. Patient is being initiated on Xarelto at this time. No fever, no cough. PHYSICAL EXAM: Alert and oriented x3. Pulse 56, blood pressure 177/64, respirations 16, temperature 97.6, pulse ox 97% room air. HEENT: Conjunctivae normal. NECK: Supple. No JVD. CARDIOVASCULAR: S1 and S2 muffled. LUNGS: Breath sounds decreased at the bases. No rhonchi. No crackles. ABDOMEN: Soft, nontender. No mass. Legs no edema, no swelling. NERVOUS SYSTEM: No numbness or weakness. LABS: WBC 11, hemoglobin 13.5. ASSESSMENT: 1. Acute DVT of the inferior vena cava as well as bilateral iliac vein thrombus on heparin drip. 2. Abnormal liver lesions, status post liver biopsy. 3. Back pain possible DJD. 4. Acute urinary tract infection with fever, possibly E. coli sepsis present on admission. 5. Elevated CA19-9. 6. Elevated ALT, alkaline phosphatase. 7. Hyponatremia. 8. Recent urinary tract infection with antibiotics. 9. Multiple cystic lesions in the pancreas, consistent with chronic pancreatitis and multiple pseudocysts. Cystic pancreatic tumor not excluded. 10.History of gastroesophageal reflux disease. 11.Hypertension. 12.History of prostate disorder. 13.History of hypothyroidism. 14.Adenoidectomy. 15.History of degenerative joint disease. 16.History of parathyroid surgery. 17.History of varicose veins. 18.History of bilateral cataracts. 19.FULL CODE. RECOMMENDATIONS: Recommend to continue current current management and symptomatic treatment. Continue with antibiotics. Otherwise increase ambulation. Continue with Xarelto. recreation worker case management to evaluate the home situation. Discussed with the family. Further recommendations to follow. MMODL / IJN: [id number] /
[2018-10-23] MEDS: MEROPENEM 1 GM in SODIUM CHLORIDE 0.9% 100 ML IVPB SCH ×4 (00:51→23:39)
[2018-10-23] MEDS: LEVOTHYROXINE 100 MCG TAB PO SCH (06:24)
[2018-10-23] MEDS: TRIAMTERENE-HCTZ 37.5-25MG 1 EACH CAP PO SCH (08:59)
[2018-10-23] MEDS: CHOLECALCIFEROL 1,000 UNIT TAB PO SCH (08:59)
[2018-10-23] MEDS: methylPREDNISolone SOD SUCCI 125 MG/2 ML VIAL IV SCH ×2 (08:59→21:09)
[2018-10-23] MEDS: ATENOLOL 25 MG TAB PO SCH (08:59)
[2018-10-23] MEDS: amLODIPine 10 MG TAB PO SCH (08:59)
[2018-10-23] MEDS: TAMSULOSIN 0.4 MG CAP.ER.24H PO SCH (08:59)
[2018-10-23] MEDS: POLYETHYLENE GLYCOL 3350 17 GM POWD.PACK PO SCH (08:59)
[2018-10-23] MEDS: RIVAROXABAN 15 MG TAB PO SCH ×2 (08:59→12:51)
[2018-10-23] MEDS: PANTOPRAZOLE 40 MG TABLET PO SCH (08:59)
[2018-10-23] MEDS: SENNOSIDES-DOCUSATE SODIUM 1 EACH TAB PO SCH ×2 (09:01→21:09)
--- NOTE | 2018-10-23 18:08 | P.PN ---
Subjective Progress Note Date: 10/23/18 Principal diagnosis: e-coli sepsis/UTI, IVC thrombosis, liver lesions Patient seen today in follow-up. No complaints of discomfort in the biopsy site , no fevers, appetite is fair, no nausea or vomiting, acute changes in bowel or bladder abdominal pain, distention, bleeding, swelling or pain. Objective - Vital Signs Vital signs: Vital Signs Temp 97.6 F 10/23/18 12:30 Pulse 60 10/23/18 12:30 Resp 18 10/23/18 12:30 BP 123/76 10/23/18 12:30 Pulse Ox 96 10/23/18 12:30 Intake & Output 10/22/18 10/23/18 10/23/18 18:59 06:59 18:59 Intake Total 1900 540 260 Output Total 250 625 Balance 1650 -85 260 Weight 90.5 kg 90.5 kg Intake: Intake, IV Titration 750 300 260 Amount Heparin Sod,Pork in 0.45% 500 NaCl 25,000 unit In 0.45 % NaCl 1 500ml.bag @ 18 UNITS/KG/HR 32.65 mls/hr IV .[id number] [facility] Rx#: [id number] Meropenem 1 gm In Sodium 200 100 100 Chloride 0.9% 100 ml @ 200 mls/hr IVPB Q8HR [facility] Rx#:[id number] Sodium Chloride 0.9% 1, 200 160 000 ml @ 20 mls/hr IV . Q24H [facility] Rx#:[id number] cefTRIAXone 1,000 mg In 50 Sodium Chloride 0.9% 50 ml @ 100 mls/hr IVPB Q24H [facility] Rx#:[id number] Oral 1150 240 Output: Urine 250 625 Other: Voiding Method Toilet Toilet Toilet Urinal Urinal Urinal # Voids 2 - Constitutional General appearance: Present: average body habitus, cooperative, no acute distress - EENT Eyes: Present: EOMI ENT: Present: hearing grossly normal - Respiratory Respiratory: bilateral: CTA - Cardiovascular Rhythm: regular Heart sounds: normal: S1, S2 - Gastrointestinal General gastrointestinal: Present: normal bowel sounds, soft - Integumentary Integumentary: Present: pale - Neurologic Neurologic: Present: CNII-XII intact - Musculoskeletal Musculoskeletal: Present: generalized weakness, strength equal bilaterally - Psychiatric Psychiatric: Present: A&O x's 3, appropriate affect, intact judgment & insight - Labs CBC & Chem 7: 10/22/18 09:08 10/22/18 09:08 Labs: Microbiology - Last 24 Hours (Table) 10/17/18 17:24 Blood Culture - Preliminary Blood No Growth after 120 hours Assessment and Plan (1) Inferior vena cava thromboembolism Narrative/Plan: Patient has been transitioned to oral eliquis. Anticipate lifelong anticoagulation especially if malignancy diagnosed Current Visit: Yes Status: Acute Priority: High Code(s): I82.220 - ACUTE EMBOLISM AND THROMBOSIS OF INFERIOR VENA CAVA SNOMED Code(s): 449077128 (2) Liver mass Narrative/Plan: nondiagnostic liver biopsy. Current Visit: Yes Status: Acute Priority: High Code(s): R16.0 - HEPATOMEGALY, NOT ELSEWHERE CLASSIFIED SNOMED Code(s): 661571952 Plan: Plan is to transfer patient to [facility] tomorrow where he will be placed back on a heparin drip and scheduled for additional biopsies. attests: I performed H&P and developed impression and plan of care of patient, discussed with dictator. I agree with dictated note, documented as a scribe.
--- NOTE | 2018-10-23 20:39 | PN ---
PROGRESS NOTE DATE OF SERVICE: 10/23/2018 This 83-year-old gentleman who was admitted with acute DVT of the inferior vena cava, iliac vein thrombosis, also had abnormal liver lesion. Biopsy was done. The liver biopsy showed only rare clusters of hepatocytes. The patient also has persistent E coli grown from the culture. The patient is on broad-spectrum IV antibiotics. Invanz is being planned by [facility]. The patient is started on anticoagulants also. Multiple consultants are following the patient closely. Past medical history reviewed. REVIEW OF SYSTEMS: CARDIOVASCULAR SYSTEM: No angina, palpitations. RESPIRATORY SYSTEM: As mentioned earlier. GI: As mentioned earlier. : No dysuria or retention. NERVOUS SYSTEM: No numbness, weakness. CURRENT MEDICATIONS: Reviewed. They include: 1. Tylenol 650 q.6 p.r.n. 2. [place] 5 mg q.4. 3. Xanax 0.25 t.i.d. 4. Norvasc 10 mg daily. 5. Tenormin 25 mg. 6. Vitamin D3 1000 daily. 7. Dilaudid 0.25 mg q.3 p.r.n. 8. Synthroid 100 mcg p.o. daily. 9. Melatonin 3 mg. 10.Meropenem 1 gram q.8. 11.Solu-Medrol 60 IV b.i.d. 12.Narcan. 13.Protonix. 14.MiraLAX. 15.Xarelto. 16.Flomax. 17.Restoril. 18.Dyazide. PHYSICAL EXAMINATION: The patient is alert, oriented x3. Pulse 60, blood pressure 123/76, respiration 18, temperature 97.6, pulse ox 96% on room air. HEENT: Conjunctivae normal. NECK: No jugular venous distention. CARDIOVASCULAR SYSTEM: S1, S2 muffled. RESPIRATORY SYSTEM: Breath sounds diminished at the bases. No rhonchi. No crackles. ABDOMEN: Soft, non-tender. No mass palpable. LEGS: No edema. No swelling. NERVOUS SYSTEM: No focal deficit. LABS: WBC 11.8, hemoglobin 13.5. ASSESSMENT: 1. 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 2. Abnormal liver lesion, status post liver biopsy with a few hepatocytes. 3. Back pain, possibly degenerative joint disease. 4. Urinary tract infection with fever, possibly resistant Escherichia coli sepsis, present on admission. 5. Elevated CA19-9. 6. Elevated ALT and alkaline phosphatase. 7. Hyponatremia. 8. Recent urinary tract infection, on antibiotics. 9. Multiple cystic lesions in the pancreas consistent with chronic pancreatitis and multiple pseudocysts. Cystic pancreatic tumor not excluded. 10.History of gastroesophageal reflux disease. 11.Hypertension. 12.History of prostate disorder. 13.History of hypothyroidism. 14.History of adenoidectomy. 15.History of degenerative joint disease. 16.History of parathyroid surgery. 17.History of varicose veins. 18.History of bilateral cataracts. 19.FULL CODE. RECOMMENDATIONS AND DISCUSSION: I recommend to continue current medication, continue symptomatic treatment. I would recommend continuing with antibiotics. PICC line. Outpatient antibiotics. Also recommend close followup with [facility] or a tertiary care center per gastroenterology recommendation as an outpatient. Otherwise, continue the rest of the recommendations. Follow closely with multiple consultants. Prognosis guarded. Further recommendations to follow. MMODL / IJN: [id number] /
[2018-10-24] MEDS: LEVOTHYROXINE 100 MCG TAB PO SCH (05:32)
[2018-10-24] MEDS: SODIUM CHLORIDE 0.9% 1,000 ML IV SCH (05:33)
[2018-10-24] MEDS: POLYETHYLENE GLYCOL 3350 17 GM POWD.PACK PO SCH (09:23)
[2018-10-24] MEDS: PANTOPRAZOLE 40 MG TABLET PO SCH (09:27)
[2018-10-24] MEDS: SENNOSIDES-DOCUSATE SODIUM 1 EACH TAB PO SCH ×2 (09:27→20:26)
[2018-10-24] MEDS: TAMSULOSIN 0.4 MG CAP.ER.24H PO SCH (09:27)
[2018-10-24] MEDS: MEROPENEM 1 GM in SODIUM CHLORIDE 0.9% 100 ML IVPB SCH ×3 (09:28→23:12)
[2018-10-24] MEDS: CHOLECALCIFEROL 1,000 UNIT TAB PO SCH (09:28)
[2018-10-24] MEDS: TRIAMTERENE-HCTZ 37.5-25MG 1 EACH CAP PO SCH (09:28)
[2018-10-24] MEDS: RIVAROXABAN 15 MG TAB PO SCH ×2 (09:29→16:57)
[2018-10-24] MEDS: ATENOLOL 25 MG TAB PO SCH (09:29)
[2018-10-24] MEDS: amLODIPine 10 MG TAB PO SCH (09:29)
[2018-10-24] MEDS: methylPREDNISolone SOD SUCCI 125 MG/2 ML VIAL IV SCH ×2 (09:29→20:26)
--- NOTE | 2018-10-24 11:40 | P.PN ---
Subjective This is a pleasant 83 years old male with past medical history of hypertension, BPH, GERD, hypothyroidism, who presents with multiple medical problems including urinary tract infection, inferior vena cava filter thrombosis with 2 liver lesion suspicious for metastatic disease. Patient was lying in bed not in great distress. Denies chest pain or dyspnea. His back pain today is 3-4/10 , no abdominal pain. He has no nausea vomiting. He had formed bowel movement last night. Patient states he is able to be with no problems. No blood was noticed by patient is tall or urine. His currently on xarelto and Solu-Medrol as well as meropenem for his infection. His WBC was 11.8 K. Repeat labs are still pending Objective - Vital Signs Vital signs: Vital Signs Temp 97.6 F 10/24/18 05:00 Pulse 56 L 10/24/18 05:00 Resp 16 10/24/18 05:00 BP 105/58 10/24/18 05:00 Pulse Ox 93 L 10/24/18 05:00 Intake & Output 10/23/18 10/24/18 10/24/18 18:59 06:59 18:59 Intake Total 260 Output Total 400 Balance 260 -400 Weight 90.5 kg Intake: Intake, IV Titration 260 Amount Meropenem 1 gm In Sodium 100 Chloride 0.9% 100 ml @ 200 mls/hr IVPB Q8HR [facility] Rx#:[id number] Sodium Chloride 0.9% 1, 160 000 ml @ 20 mls/hr IV . Q24H [facility] Rx#:[id number] Output: Urine 400 Other: Voiding Method Toilet Toilet Toilet Urinal Urinal Urinal # Voids 1 - Exam GENERAL: The patient is alert and oriented x3, not in any acute distress. Well developed, well nourished. HEENT: Pupils are round and equally reacting to light. EOMI. No scleral icterus. No conjunctival pallor. Normocephalic, atraumatic. No pharyngeal erythema. No thyromegaly. CARDIOVASCULAR: S1 and S2 present. No murmurs, rubs, or gallops. PULMONARY: Chest is clear to auscultation, no wheezing or crackles. ABDOMEN: Soft, nontender, nondistended, normoactive bowel sounds. No palpable organomegaly. MUSCULOSKELETAL: No joint swelling or deformity. EXTREMITIES: No cyanosis, clubbing, or pedal edema. NEUROLOGICAL: Gross neurological examination did not reveal any focal deficits. SKIN: No rashes. - Labs CBC & Chem 7: 10/22/18 09:08 10/22/18 09:08 Labs: Microbiology - Last 24 Hours (Table) 10/17/18 17:24 Blood Culture - Final Blood No Growth after 144 hours Assessment and Plan Assessment: Due to venous thrombosis of the inferior vena cava as well as bilateral iliac vein thrombosis, on anticoagulation 2 liver lesions, suspicious for metastatic disease Back pain, improving Urinary tract infection with E. coli sepsis, present on admission Elevated CA 19-9 Deviated LVLT Multiple cystic lesions in the pancreas consensus with chronic pancreatitis and multiple pseudocysts. Cystic pancreatic tumor not excluded. History of GERD Essential hypertension Hypothyroidism History of BPH Plan: This is a pleasant 83 years old male who presents because of urinary tract infection and venous thrombosis with liver lesions. Continue on anticoagulation and antibiotics. The patient and his steroids. Labs and medication were reviewed.. Continue same treatment. Continue with symptomatic treatment. Resume home medication. Monitor lytes and vitals. DVT and GI prophylaxis. Further recommendations of the clinical course of the patient DVT prophylaxis: xarelto GI Prophylaxis: Protonix PT/OT: Pending Prognosis is guarded
--- NOTE | 2018-10-24 11:59 | P.PN ---
Subjective Progress Note Date: 10/24/18 Principal diagnosis: e-coli sepsis/UTI, IVC thrombosis, liver lesions Patient seen today in follow-up. No complaints of discomfort in the biopsy site , no fevers or pain, and daughter are at bedside. Objective - Vital Signs Vital signs: Vital Signs Temp 97.6 F 10/24/18 05:00 Pulse 56 L 10/24/18 05:00 Resp 16 10/24/18 05:00 BP 105/58 10/24/18 05:00 Pulse Ox 93 L 10/24/18 05:00 Intake & Output 10/23/18 10/24/18 10/24/18 18:59 06:59 18:59 Intake Total 260 Output Total 400 Balance 260 -400 Weight 90.5 kg Intake: Intake, IV Titration 260 Amount Meropenem 1 gm In Sodium 100 Chloride 0.9% 100 ml @ 200 mls/hr IVPB Q8HR [facility] Rx#:[id number] Sodium Chloride 0.9% 1, 160 000 ml @ 20 mls/hr IV . Q24H [facility] Rx#:[id number] Output: Urine 400 Other: Voiding Method Toilet Toilet Toilet Urinal Urinal Urinal # Voids 1 - Exam Well-developed well-nourished, no acute distress, respirations are even and unlabored, patient is able to move independently, generalized weakness is noted - Constitutional General appearance: Present: average body habitus, cooperative, no acute distress - Labs CBC & Chem 7: 10/22/18 09:08 10/22/18 09:08 Labs: Microbiology - Last 24 Hours (Table) 10/17/18 17:24 Blood Culture - Final Blood No Growth after 144 hours Assessment and Plan (1) Inferior vena cava thromboembolism Narrative/Plan: Patient currently on eliquis. Patient will have to be transitioned back to heparin drip in order to have liver biopsy as initial biopsy was nondiagnostic. If patient has bleeding removable IVC filter placement has been discussed with the family and is recommended if pt cannot be anticoagulated. Current Visit: Yes Status: Acute Priority: High Code(s): I82.220 - ACUTE EMBOLISM AND THROMBOSIS OF INFERIOR VENA CAVA SNOMED Code(s): 646800343 (2) Liver mass Narrative/Plan: Nondiagnostic liver biopsy, patient needs additional biopsy. Plan is for tertiary care transfer for procedure as patient requires anticoagulation because of newly diagnosed inferior vena cava clot. Current Visit: Yes Status: Acute Priority: High Code(s): R16.0 - HEPATOMEGALY, NOT ELSEWHERE CLASSIFIED SNOMED Code(s): 811271652 Plan: The plan is been discussed with the family regarding transfer, need for anticoagulation, transitioned from oral to IV and back to oral, concerns for bleeding and the possibility of needing an IVC filter, and plans for additional liver biopsy for diagnosis. Plan was for transfer to [facility], unfortunately they have no beds available. Have discussed the case with case management, we'll continue to follow with them, based on patient and family wishes we will proceed with a transfer to another tertiary care facility or wait for a bed at [facility].
[2018-10-24 12:25] LABS: Glucose,Whole Blood 112 mg/dL (75-99)
[2018-10-24 13:05] LABS: Basophils % (A) 0 %; Eosinophils % (A) 0 %; HCT 45.7 % (39.0-53.0); HGB 14.9 gm/dL (13.0-17.5); Lymphocytes # (A) 1.2 k/uL (1.0-4.8); Lymphocytes % (A) 8 %; MCHC 32.6 g/dL (31.0-37.0); MCV 89.1 fL (80.0-100.0); Mean Platelet Volume 6.8; Monocytes # (A) 0.6 k/uL (0-1.0); Monocytes % (A) 4 %; Neutrophils # (A) 13.6 k/uL (1.3-7.7); Neutrophils % (A) 87 %; Platelet Count 421 k/uL (150-450); RBC 5.13 m/uL (4.30-5.90); RDW 14.6 % (11.5-15.5); WBC 15.6 k/uL (3.8-10.6)
[2018-10-24 13:13] LABS: Anion Gap 7 mmol/L; Blood Urea Nitrogen 27 mg/dL (9-20); Calcium 10.2 mg/dL (8.4-10.2); Carbon Dioxide 27 mmol/L (22-30); Chloride 103 mmol/L (98-107); Glucose 103 mg/dL (74-99); Potassium 4.7 mmol/L (3.5-5.1); Sodium 137 mmol/L (137-145)
--- NOTE | 2018-10-25 00:03 | P.PN ---
Subjective Progress Note Date: 10/24/18 83-year-old male resents to Hospital with increasing weakness, increasing pain to his back and difficulty lifting his leg. The family relates the patient had been on a trip to [place] with frequent stops for ambulation along the way and the return. Had no great difficulties while he was there. He is normally a very active 83-year-old gentleman. However short before admission he started to have a decline of the status partly because of the severe back pain and increasing weakness to the leg. Family finally brought to the emergency center at which point in time it was found that he was acutely ill with a temperature 101.3 and severe back pain. His back pain is being treated and because of this he had imaging studies. 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 Further workup is in process and is being seen by hematology oncology. Because of the difficulties scanning was performed revealing evidence of lesions within the liver which are very concerning given the inferior vena cava thrombosis. The patient is known to the service from his difficulties of urinary tract infection with resistant E. coli from earlier this year. The family physician was concerned about a urinary tract infection and placed on Macrobid with no improvement. With the admission the patient was given his first dose of ceftriaxone. His fever continued and with positive blood cultures antibiotic therapy was enhanced. Multiple imaging studies occurring today. 10/18/2018 patient is more awake and alert today. He is not having much pain. This early concern as to the events. Fever has improved denies other new acute symptoms. Relates to minimal urinary discomfort at this time. Await liver biopsy. 10/24/2018 patient is showing some further improvement. However the fine- needle aspiration of the liver was nondiagnostic. Given the potential need for a [place] filter placed proximally, in need for further liver biopsy transfer to a hepatology center is in process. The patient is comfortable continues to have some poor appetite and is concerned about his underlying health. Objective - Vital Signs Vital signs: Vital Signs Temp 97.7 F 10/24/18 21:00 Pulse 54 L 10/24/18 21:00 Resp 20 10/24/18 21:00 BP 120/70 10/24/18 21:00 Pulse Ox 97 10/24/18 21:00 Intake & Output 10/24/18 10/24/18 10/25/18 06:59 18:59 06:59 Intake Total 260 Output Total 400 Balance -400 260 Intake: Intake, IV Titration 260 Amount Meropenem 1 gm In Sodium 100 Chloride 0.9% 100 ml @ 200 mls/hr IVPB Q8HR DIPESH Rx#:[id number] Sodium Chloride 0.9% 1, 160 000 ml @ 20 mls/hr IV . Q24H DIPESH Rx#:[id number] Output: Urine 400 Other: Voiding Method Toilet Toilet Urinal Urinal # Voids 1 1 - Exam 83-year-old male with significant discomfort in his back HEENT: Anicteric conjunctiva are pink and moist nasal mucosa grossly intact without significant lesions, there is no thrush. Neck: The neck is supple without significant lymphadenopathy or thyromegaly. Lungs: Good bilateral air entry without significant crackles or wheezing. There is no significant bronchial sounds. There is no egophony or dullness. Heart: Regular rate and rhythm with an audible S1-S2, no S3 no S4. There is no significant murmur click or rub, PMI was nondisplaced. Abdomen: Bowel sounds are present abdomen is soft severe pain in his back Extremities: The upper extremities have excellent pulses they are symmetric, no significant petechiae or telangiectasia. No splinter hemorrhages were noted. The lower extremities are free from significant edema. The peripheral pulses were 2+ and symmetric. Neuro: Awake alert oriented to person place and time. There are no acute new gross focal sensory motor deficits. - Labs CBC & Chem 7: 10/24/18 12:44 10/24/18 12:44 Labs: Abnormal Lab Results - Last 24 Hours (Table) 10/24/18 10/24/18 10/24/18 Range/Units 12:23 12:44 12:44 WBC 15.6 H (3.8-10.6) k/uL Neutrophils # 13.6 H (1.3-7.7) k/uL BUN 27 H (9-20) mg/dL Glucose 103 H (74-99) mg/dL POC Glucose (mg/dL) 112 H (75-99) mg/dL Microbiology - Last 24 Hours (Table) 10/17/18 17:24 Blood Culture - Final Blood No Growth after 144 hours Laboratory Results WBC 15.6 k/uL (3.8-10.6) H 10/24/18 12:44 RBC 5.13 m/uL (4.30-5.90) 10/24/18 12:44 Hgb 14.9 gm/dL (13.0-17.5) 10/24/18 12:44 Hct 45.7 % (39.0-53.0) 10/24/18 12:44 MCV 89.1 fL (80.0-100.0) 10/24/18 12:44 MCH 29.0 pg (25.0-35.0) 10/24/18 12:44 MCHC 32.6 g/dL (31.0-37.0) 10/24/18 12:44 RDW 14.6 % (11.5-15.5) 10/24/18 12:44 Plt Count 421 k/uL (150-450) 10/24/18 12:44 Neutrophils % 87 % 10/24/18 12:44 Lymphocytes % 8 % 10/24/18 12:44 Monocytes % 4 % 10/24/18 12:44 Eosinophils % 0 % 10/24/18 12:44 Basophils % 0 % 10/24/18 12:44 Neutrophils # 13.6 k/uL (1.3-7.7) H 10/24/18 12:44 Lymphocytes # 1.2 k/uL (1.0-4.8) 10/24/18 12:44 Monocytes # 0.6 k/uL (0-1.0) 10/24/18 12:44 Eosinophils # 0.0 k/uL (0-0.7) 10/24/18 12:44 Basophils # 0.0 k/uL (0-0.2) 10/24/18 12:44 PT 10.5 sec (9.0-12.0) 10/16/18 15:37 INR 1.1 (<1.2) 10/16/18 15:37 APTT 78.3 sec (22.0-30.0) H 10/22/18 09:08 Sodium 137 mmol/L (137-145) 10/24/18 12:44 Potassium 4.7 mmol/L (3.5-5.1) 10/24/18 12:44 Chloride 103 mmol/L (98-107) 10/24/18 12:44 Carbon Dioxide 27 mmol/L (22-30) 10/24/18 12:44 Anion Gap 7 mmol/L 10/24/18 12:44 BUN 27 mg/dL (9-20) H 10/24/18 12:44 Creatinine 0.86 mg/dL (0.66-1.25) 10/24/18 12:44 Est GFR (CKD-EPI)AfAm >90 (>60 ml/min/1.73 sqM) 10/24/18 12:44 Est GFR (CKD-EPI)NonAf 80 (>60 ml/min/1.73 sqM) 10/24/18 12:44 Glucose 103 mg/dL (74-99) H 10/24/18 12:44 POC Glucose (mg/dL) 112 mg/dL (75-99) H 10/24/18 12:23 POC Glu Implementation Architect ID Anastasiya Burks 10/24/18 12:[address] Glu mg/dL 128 10/21/18 06:40 Hemoglobin A1c 6.1 % (4.0-6.0) H 10/21/18 06:40 Calcium 10.2 mg/dL (8.4-10.2) 10/24/18 12:44 Total Bilirubin 0.6 mg/dL (0.2-1.3) 10/22/18 09:08 AST 48 U/L (17-59) 10/22/18 09:08 ALT 99 U/L (21-72) H 10/22/18 09:08 Alkaline Phosphatase 134 U/L (38-126) H 10/22/18 09:08 Total Protein 6.7 g/dL (6.3-8.2) 10/22/18 09:08 Albumin 3.0 g/dL (3.5-5.0) L 10/22/18 09:08 CA 19-9 Antigen 223.2 U/mL (0.0-34.9) H 10/18/18 04:16 Free PSA TNP 10/17/18 09:46 % Free PSA TNP 10/17/18 09:46 Total PSA 26.0 ng/mL (<=4.0) H 10/17/18 09:46 Urine Color Yellow 10/17/18 15:00 Urine Appearance Cloudy (Clear) 10/17/18 15:00 Urine pH 6.0 (5.0-8.0) 10/17/18 15:00 Ur Specific [place] 1.012 (1.001-1.035) 10/17/18 15:00 Urine Protein Negative (Negative) 10/17/18 15:00 Urine Glucose (UA) Negative (Negative) 10/17/18 15:00 Urine Ketones Negative (Negative) 10/17/18 15:00 Urine Blood Small (Negative) H 10/17/18 15:00 Urine Nitrite Negative (Negative) 10/17/18 15:00 Urine Bilirubin Negative (Negative) 10/17/18 15:00 Urine Urobilinogen 2.0 mg/dL (<2.0) 10/17/18 15:00 Ur Leukocyte Esterase Moderate (Negative) H 10/17/18 15:00 Urine RBC 5 /hpf (0-5) 10/17/18 15:00 Urine WBC 58 /hpf (0-5) H 10/17/18 15:00 Ur Squamous Epith Cells <1 /hpf (0-4) 10/16/18 14:40 Urine Bacteria Occasional /hpf (None) H 10/17/18 15:00 Urine Mucus Rare /hpf (None) H 10/17/18 15:00 Microbiology 10/17/18 17:24 Blood Blood Culture - Final No Growth after 144 hours 10/16/18 23:01 Blood Blood Culture Gram Stain - Final 10/16/18 23:01 Blood Blood Culture - Final Escherichia coli 10/16/18 14:40 Urine,Voided Urine Culture - Final Escherichia coli 10/16/18 23:01 Blood Blood Culture - Final Assessment and Plan (1) Inferior vena cava thromboembolism Current Visit: Yes Status: Acute Priority: High Code(s): I82.220 - ACUTE EMBOLISM AND THROMBOSIS OF INFERIOR VENA CAVA SNOMED Code(s): 918812706 (2) Fever Narrative/Plan: 83-year-old male with multiple medical troubles presents to hospital with increasing pain in his back increasing difficulties with ambulation and increasing weakness. The patient would imaging studies that revealed evidence of inferior vena cava thrombosis with evidence of extension to the iliacs bilaterally. Further workup as failed reloads of pulmonary embolus or deep venous thrombosis and to the lower extremities. The patient has recently completed a trip to [facility]. The patient was begun on Macrobid by his primary care physician but has not had improvement. Evidence of fever at admission evidence of positive urinalysis and urine culture and blood cultures are positive for E. coli. Given his history of a somewhat resistant pathogen meropenem has been started for the treatment of the current sepsis. Patient has been seen by oncology to further characterize the lesions in the liver with concern that they are malignant and metastatic in nature they will likely be been biopsied in the near future since he is on heparin drip that would need to be held for the biopsies by interventional radiology. The patient will likely go to extended care discharge to complete his course of antibiotic therapy that was required for his current sepsis. 10/18/2018 patient feeling slightly better today. Continues to have back pain but seems to be slightly better than yesterday. Has been seen by orthopedic spine as well as pain management. Interventional procedures are not possible this time due to the current inferior vena caval thrombosis and need for anticoagulation therapy. Patient also has active bacteremia and urinary infection which also preclude any invasive injection procedures at this time. Workup of the liver masses and process. Continue meropenem for now. 10/24/2018 patient being ready for transfer to inpatient rehab. We can transition antibiotic therapy with Invanz for once daily therapy which is less intrusive into his regimen for physical therapy and rehab. Current Visit: Yes Status: Acute Code(s): R50.9 - FEVER, UNSPECIFIED SNOMED Code(s): 005440455 (3) E. coli sepsis Current Visit: Yes Status: Acute Code(s): A41.51 - SEPSIS DUE TO ESCHERICHIA COLI [E. COLI] SNOMED Code(s): 288198425
[2018-10-25 05:17] VITALS: RESP 16; TEMP 97.5
[2018-10-25] MEDS: LEVOTHYROXINE 100 MCG TAB PO SCH (06:14)
[2018-10-25] MEDS: SODIUM CHLORIDE 0.9% 1,000 ML IV SCH ×2 (06:15→18:06)
[2018-10-25] MEDS: methylPREDNISolone SOD SUCCI 125 MG/2 ML VIAL IV SCH (08:29)
[2018-10-25] MEDS: RIVAROXABAN 15 MG TAB PO SCH ×2 (08:29→18:06)
[2018-10-25] MEDS: TAMSULOSIN 0.4 MG CAP.ER.24H PO SCH (08:29)
[2018-10-25] MEDS: PANTOPRAZOLE 40 MG TABLET PO SCH (08:29)
[2018-10-25] MEDS: SENNOSIDES-DOCUSATE SODIUM 1 EACH TAB PO SCH (08:29)
[2018-10-25] MEDS: ATENOLOL 25 MG TAB PO SCH (08:29)
[2018-10-25] MEDS: CHOLECALCIFEROL 1,000 UNIT TAB PO SCH (08:29)
[2018-10-25] MEDS: TRIAMTERENE-HCTZ 37.5-25MG 1 EACH CAP PO SCH (08:29)
[2018-10-25] MEDS: amLODIPine 10 MG TAB PO SCH (08:29)
[2018-10-25] MEDS: MEROPENEM 1 GM in SODIUM CHLORIDE 0.9% 100 ML IVPB SCH ×2 (08:30→15:03)
[2018-10-25] MEDS: POLYETHYLENE GLYCOL 3350 17 GM POWD.PACK PO SCH (08:30)
[2018-10-25 08:57] LABS: Basophils # (A) 0.1 k/uL (0-0.2); Basophils % (A) 1 %; Eosinophils % (A) 0 %; HCT 47.2 % (39.0-53.0); Lymphocytes # (A) 1.5 k/uL (1.0-4.8); Lymphocytes % (A) 10 %; MCH 28.6 pg (25.0-35.0); MCHC 31.8 g/dL (31.0-37.0); MCV 90.2 fL (80.0-100.0); Mean Platelet Volume 6.7; Monocytes # (A) 0.6 k/uL (0-1.0); Monocytes % (A) 4 %; Neutrophils # (A) 12.6 k/uL (1.3-7.7); Neutrophils % (A) 85 %; Platelet Count 460 k/uL (150-450); RBC 5.23 m/uL (4.30-5.90); RDW 15.1 % (11.5-15.5); WBC 14.8 k/uL (3.8-10.6)
[2018-10-25 09:16] LABS: ALT 88 U/L (21-72); AST 32 U/L (17-59); Albumin 3.3 g/dL (3.5-5.0); Alkaline Phosphatase 101 U/L (38-126); Anion Gap 6 mmol/L; Bilirubin, Delta 0.4 mg/dL (0.0-0.2); Bilirubin,Unconjugated 0.2 mg/dL (0.0-1.1); Blood Urea Nitrogen 31 mg/dL (9-20); Calcium 10.1 mg/dL (8.4-10.2); Carbon Dioxide 28 mmol/L (22-30); Chloride 103 mmol/L (98-107); Glucose 125 mg/dL (74-99); Potassium 5.1 mmol/L (3.5-5.1); Sodium 137 mmol/L (137-145); Total Bilirubin 0.6 mg/dL (0.2-1.3)
[2018-10-25 12:16] LABS: Glucose,Whole Blood 149 mg/dL (75-99)
[2018-10-25 16:26] VITALS: BP 91/59
--- NOTE | 2018-10-25 17:03 | P.PN ---
Subjective Progress Note Date: 10/25/18 Principal diagnosis: e-coli sepsis/UTI, IVC thrombosis, liver lesions Patient seen today in follow-up. No complaints of discomfort in the biopsy site , no fevers or pain, and daughter are at bedside. He is eating and drinking, ambulating Objective - Vital Signs Vital signs: Vital Signs Temp 97.5 F L 10/25/18 05:00 Pulse 41 L 10/25/18 15:15 Resp 16 10/25/18 15:15 BP 91/59 10/25/18 15:15 Pulse Ox 98 10/25/18 15:15 Intake & Output 10/24/18 10/25/18 10/25/18 18:59 06:59 18:59 Intake Total 260 1320 Output Total 500 Balance 260 -500 1320 Intake: Intake, IV Titration 260 360 Amount Meropenem 1 gm In Sodium 100 200 Chloride 0.9% 100 ml @ 200 mls/hr IVPB Q8HR DIPESH Rx#:[id number] Sodium Chloride 0.9% 1, 160 160 000 ml @ 20 mls/hr IV . Q24H DIPESH Rx#:[id number] Oral 960 Output: Urine 500 Other: Voiding Method Toilet Toilet Toilet Urinal Urinal Urinal # Voids 1 2 - Exam NAD, respirations are even and unlabored, patient is able to move independently , generalized weakness is noted - Constitutional General appearance: Present: average body habitus, cooperative, no acute distress - Labs CBC & Chem 7: 10/25/18 08:34 10/25/18 08:34 Labs: Abnormal Lab Results - Last 24 Hours (Table) 10/25/18 10/25/18 10/25/18 Range/Units 08:34 08:34 12:14 WBC 14.8 H (3.8-10.6) k/uL Plt Count 460 H (150-450) k/uL Neutrophils # 12.6 H (1.3-7.7) k/uL BUN 31 H (9-20) mg/dL Glucose 125 H (74-99) mg/dL POC Glucose (mg/dL) 149 H (75-99) mg/dL Delta Bilirubin 0.4 H (0.0-0.2) mg/dL ALT 88 H (21-72) U/L Albumin 3.3 L (3.5-5.0) g/dL Assessment and Plan (1) Inferior vena cava thromboembolism Narrative/Plan: Patient currently on eliquis. Patient will have to be transitioned back to heparin drip in order to have liver biopsy as initial biopsy was nondiagnostic. If patient has bleeding removable IVC filter placement has been discussed with the family and is recommended if pt cannot be anticoagulated. Current Visit: Yes Status: Acute Priority: High Code(s): I82.220 - ACUTE EMBOLISM AND THROMBOSIS OF INFERIOR VENA CAVA SNOMED Code(s): 524619165 (2) Liver mass Current Visit: Yes Status: Acute Priority: High Code(s): R16.0 - HEPATOMEGALY, NOT ELSEWHERE CLASSIFIED SNOMED Code(s): 828253040 Plan: The plan is been discussed with the family regarding transfer, need for anticoagulation, transitioned from oral to IV and back to oral, concerns for bleeding and the possibility of needing an IVC filter, and plans for additional liver biopsy for diagnosis. Transfer pending. Pt and family aware Time with Patient: Greater than 30 (45min spent, >50% counseling and coordinating care)
[2018-10-25 18:02] VITALS: PULSE 58
--- NOTE | 2018-10-25 18:36 | P.DS ---
Providers Date of admission: 10/16/18 20:22 Attending physician: Aníbal Minor Consults: 10/16/18 20:14 Consult Physician Stat Consulting Provider: Deondre Hart Consult Reason/Comments: IVC clot, possible malignancy Do you want consulting provider notified?: Yes 10/16/18 21:25 Consult Physician Routine Consulting Provider: Griffin Acosta Consult Reason/Comments: sepsis Do you want consulting provider notified?: Yes 10/17/18 13:47 Consult Physician Routine Consulting Provider: Clayton Kirby Consult Reason/Comments: back pain Do you want consulting provider notified?: Yes 10/18/18 09:40 Consult Physician Routine Consulting Provider: Clayton Kirby Consult Reason/Comments: L4-L5 Herniated Disc, Pain Do you want consulting provider notified?: Yes 10/18/18 12:44 Consult Physician Urgent Consulting Provider: Rajesh Hanley Consult Reason/Comments: Possible interventional pain management for disc herniation L4 5 Do you want consulting provider notified?: Yes Primary care physician: Leonard Bowser MD Hospital Course: this is a pleasant 83 years old male with past medical history of hypertension, BPH, GERD, hypothyroidism, history of skin cancer, parathyroid surgery, esophageal surgery for achalasia, being followed by Dr. Henriquez in [facility]. He presents to the emergency room with low back pain for about 2 weeks , with no history of recent trauma. Patient had CT scans of the abdomen with contrast in the emergency room which shows IVC thrombosis with bilateral iliac venous thrombosis, later of that obstruction and liver lesions, liver MRI showing 2 lesions suspicious for metastatic disease. Scattered cystic- appearing pancreatic body and tail, new plasm is not excluded. Patient has elevated CA 19-9 at 223. And elevated PSA at 26. Thorax CTA: Negative for PE, enlarged pulmonary arteries consistent with pulmonary hypertension, with thoracic aortic aneurysm up to 4.4 cm. liver biopsy/FNA was obtained but was non -diagnostic. Venous Doppler was negative for an DVT and bilateral lower extremity. MRI of the lumbar spine: Multilevel spondylosis, herniated disc at L4 to 5 with moderate to severe lumbar spinal stenosis. Patient has been evaluated by orthopedic surgeons and recommended IV steroids. Pain subsided significantly. They recommended orthopedic follow-up in the office in 2-3 weeks. Patient has been evaluated by ID team and started on meropenem for his UTI. UC: E.Coli resistant to many meds but sensitive to imipenem. Patient needs to be transferred to a tertiary care center for biopsy of the liver mass, while the patient needs anticoagulation because of newly diagnosed inferior vena cava clots. Discussed the case with the patient and agrees for transfer. He understands need to exclude cancer for his liver mass. Patient was cleared for transfer. Problems and management plan was discussed with the patient details and he verbalized understanding and acceptance. Patient is a stable to be transferred to facility in guarded prognosis. physical exam Gen.: Patient alert awake and oriented X 3, NOT IN DISTRESS CVS: s1-s2, RRR, no murmur CHEST:bilateral CTA, no wheezing or crepitation Abdomen: Soft, no tenderness, no distention, positive bowel sounds Extremities: No leg edema or induration time spent more than 35 min Patient Condition at Discharge: Good Plan - Discharge Summary Discharge Rx Participant: No New Discharge Prescriptions: New predniSONE 20 mg PO DIRECTED #24 tab Ertapenem [INVanz] 1 gm IVPB Q24H #14 bag Acetaminophen Tab [Tylenol] 650 mg PO Q6HR PRN tab PRN Reason: Fever And/ Or Pain ALPRAZolam [Xanax] 0.25 mg PO TID PRN tab PRN Reason: Anxiety HYDROcodone/APAP 5-325MG [[place] 5-325] 1 each PO Q4HR PRN tab PRN Reason: Moderate Pain Melatonin 3 mg PO HS PRN tablet PRN Reason: Insomnia Rivaroxaban [Xarelto] 15 mg PO BID-W/MEALS tab Sennosides-Docusate Sodium [Senokot-S] 1 each PO BID tab Temazepam [Restoril] 15 mg PO HS PRN cap PRN Reason: Insomnia Continue Triamterene-Hctz 37.5-25Mg [Dyazide 37.5-25 Capsule] 1 cap PO DAILY Levothyroxine Sodium [Synthroid] 100 mcg PO DAILY Cholecalciferol [Vitamin D3] 1,000 unit PO DAILY Atenolol [Tenormin] 25 mg PO DAILY amLODIPine [Norvasc] 10 mg PO DAILY Tamsulosin HCl [Flomax] 0.4 mg PO DAILY Pantoprazole Sodium [Protonix] 40 mg PO DAILY Discharge Medication List Atenolol [Tenormin] 25 mg PO DAILY 01/09/18 [History] Cholecalciferol [Vitamin D3] 1,000 unit PO DAILY 01/09/18 [History] Levothyroxine Sodium [Synthroid] 100 mcg PO DAILY 01/09/18 [History] Pantoprazole Sodium [Protonix] 40 mg PO DAILY 01/09/18 [History] Tamsulosin HCl [Flomax] 0.4 mg PO DAILY 01/09/18 [History] Triamterene-Hctz 37.5-25Mg [Dyazide 37.5-25 Capsule] 1 cap PO DAILY 01/09/18 [ History] amLODIPine [Norvasc] 10 mg PO DAILY 01/09/18 [History] predniSONE 20 mg PO DIRECTED #24 tab 10/19/18 [Rx] Ertapenem [INVanz] 1 gm IVPB Q24H #14 bag 10/23/18 [Rx] ALPRAZolam [Xanax] 0.25 mg PO TID PRN tab 10/25/18 [Rx] Acetaminophen Tab [Tylenol] 650 mg PO Q6HR PRN tab 10/25/18 [Rx] HYDROcodone/APAP 5-325MG [[place] 5-325] 1 each PO Q4HR PRN tab 10/25/18 [Rx] Melatonin 3 mg PO HS PRN tablet 10/25/18 [Rx] Rivaroxaban [Xarelto] 15 mg PO BID-W/MEALS tab 10/25/18 [Rx] Sennosides-Docusate Sodium [Senokot-S] 1 each PO BID tab 10/25/18 [Rx] Temazepam [Restoril] 15 mg PO HS PRN cap 10/25/18 [Rx] Follow up Appointment(s)/Referral(s): Ash Singletary MD [STAFF PHYSICIAN] - 11/07/18 8:45 am (this is at the [facility] location) Clayton Kirby DO [Doctor of Osteopathic Medicine] - 2 Weeks Leroy Mckeon PAC [PHYSICIAN SHEET MUSIC SALESPERSON] - 2 Weeks (Patient may follow-up with Leroy Mckeon PA-C or Dr. Miguel Kirby at [facility] in 2-3 weeks following discharge. ) Leonard Bowser MD [Primary Care Provider] - 1-2 days [facility], [NON-STAFF] - 1 Week Ambulatory/Diagnostic Orders: Complete Blood Count w/diff [LAB.AMB] Location: None Selected Comprehensive Metabolic Panel [LAB.AMB] Location: None Selected Activity/Diet/Wound Care/Special Instructions: 1. Take prednisone taper as prescribed. Avoid anti-inflammatory medications while on the steroid taper. Take a steroid taper until completion. pt has a $40 co-pay for his xaralto Discharge Disposition: OTHER INSTITUTION NOT DEFINED
== END 2018-10-25 19:25 | disposition short-term general hospital (02) | DRG 871 ==
LOC: EC 12:41 → 3NMEDONC 20:22
PROVIDERS: ADMIT Hospitalist; ATTEND Hospitalist
PROC: 0FB13ZX Excision of Right Lobe Liver, Percutaneous Approach, Diagnostic (ICD-10-PCS; principal; 2018-10-19)
DX: A41.51 Sepsis due to Escherichia coli [E. coli] (principal); I82.220 Acute embolism and thrombosis of inferior vena cava; C78.7 Secondary malignant neoplasm of liver and intrahepatic bile duct; E87.1 Hypo-osmolality and hyponatremia; I82.423 Acute embolism and thrombosis of iliac vein, bilateral; K86.1 Other chronic pancreatitis; K86.3 Pseudocyst of pancreas; N39.0 Urinary tract infection, site not specified; T82.868A Thrombosis due to vascular prosthetic devices, implants and grafts, initial encounter; E03.9 Hypothyroidism, unspecified; Z98.42 Cataract extraction status, left eye; Z98.41 Cataract extraction status, right eye; I10 Essential (primary) hypertension; I44.0 Atrioventricular block, first degree; I45.10 Unspecified right bundle-branch block; K21.9 Gastro-esophageal reflux disease without esophagitis; K76.0 Fatty (change of) liver, not elsewhere classified; M47.26 Other spondylosis with radiculopathy, lumbar region; M48.061 Spinal stenosis, lumbar region without neurogenic claudication; M51.16 Intervertebral disc disorders with radiculopathy, lumbar region; N40.1 Benign prostatic hyperplasia with lower urinary tract symptoms; R33.8 Other retention of urine; N32.0 Bladder-neck obstruction; Y83.1 Surgical operation with implant of artificial internal device as the cause of abnormal reaction of the patient, or of later complication, without mention of misadventure at the time of the procedure; Z79.01 Long term (current) use of anticoagulants; Z79.890 Hormone replacement therapy; Z79.899 Other long term (current) drug therapy; Z80.0 Family history of malignant neoplasm of digestive organs; Z85.46 Personal history of malignant neoplasm of prostate; Z85.828 Personal history of other malignant neoplasm of skin; Z87.440 Personal history of urinary (tract) infections; Z96.60 Presence of unspecified orthopedic joint implant; I27.20 Pulmonary hypertension, unspecified; Z16.30 Resistance to unspecified antimicrobial drugs; I71.2 Thoracic aortic aneurysm, without rupture
CPT/HCPCS: 10022; 36415; 36569; 47000; 71045; 71046; 71275; 72100; 72148; 72195; 74177; 74183; 76705; 76937; 76942; 80048; 80053; 80076; 81001; 83036; 84153; 85025; 85610; 85730; 86301; 87040; 87077; 87086; 87186; 88173; 88305; 93005; 93970; 96361; 96365; 96366; 96372; 96375; 96376; 99285

== ENCOUNTER 2018-12-01 19:41 | Inpatient (IN) | payer MEDICARE, OTHER ==
--- NOTE | 2018-12-01 21:44 | ED ---
General Adult HPI <Osman Rider - Last Filed: 12/01/18 22:22> - General Source: EMS, RN notes reviewed, old records reviewed Mode of arrival: EMS Limitations: no limitations <Alfred Chapa - Last Filed: 12/02/18 17:57> - General Chief complaint: Back Pain/Injury Stated complaint: Back Pain - History of Present Illness Initial comments: 83-year-old male patient past medical history of prostate cancer, colon cancer, chronic back pain, not currently on chemotherapy or external beam radiation. Patient presents with approximately 3 months of back pain. Patient states that the back pain has started when was diagnosed the cancer 3 months ago. Patient states that back pain has been progressive, denies any recent fall or trauma. Patient states that he has a heme/onc appointment on Monday, is seeking pain relief until he can see his oncologist. Pt had PET scan today. Patient denies any recent falls or trauma. Patient states that he is ambulatory w/ walker, however has frequent back spasms, pain in lumbar spine with ambulation. Patient denies any loss of bowel or bladder control, saddle anesthesias, paresthesias in his lower extremities, new onset weakness, fever chills, IV drug use. Patient denies all other complaints. Patient denies chest pain, shortness breath, abdominal pain, nausea vomiting diarrhea. Systemic: Pt denies fatigue, fever/chills, rash. Pt denies weakness, night sweats, weight loss. Neuro: Pt denies headache, visual disturbances, syncope or pre-syncope. HEENT: Pt denies ocular discharge or irritation, otalgia, rhinorrhea, pharyngitis or notable lymphadenopathy. Cardiopulmonary: Pt denies chest pain, SOB, heart palpitations, dyspnea on exertion. Abdominal/GI: Pt denies abdominal pain, n/v/d. : Pt denies dysuria, burning w/ urination, frequency/urgency. Denies new onset urinary or bowel incontinence. MSK: Pt denies loss of strength in extremities. Neuro: Pt denies new onset weakness, paresthesias. (Alfred Chapa) - Related Data Home Medications Medication Instructions Recorded Confirmed Atenolol [Tenormin] 25 mg PO DAILY 01/09/18 12/02/18 Levothyroxine Sodium [Synthroid] 100 mcg PO DAILY 01/09/18 12/02/18 Pantoprazole Sodium [Protonix] 40 mg PO DAILY 01/09/18 12/02/18 Tamsulosin HCl [Flomax] 0.4 mg PO DAILY 01/09/18 12/02/18 Triamterene-Hctz 37.5-25Mg 1 cap PO DAILY 01/09/18 12/02/18 [Dyazide 37.5-25 Capsule] amLODIPine [Norvasc] 10 mg PO DAILY 01/09/18 12/02/18 Cholecalciferol [Vitamin D3] 1,000 unit PO DAILY 12/02/18 12/02/18 Rivaroxaban [Xarelto] 20 mg PO DAILY 12/02/18 12/02/18 Sennosides-Docusate Sodium 1 each PO BID PRN 12/02/18 12/02/18 [Senokot-S] Previous Rx's Medication Instructions Recorded Acetaminophen Tab [Tylenol] 650 mg PO Q6HR PRN tab 10/25/18 HYDROcodone/APAP 5-325MG [[place] 1 each PO Q4HR PRN tab 10/25/18 5-325] Allergies Allergy/AdvReac Type Severity Reaction Status Date / Time No Known Allergies Allergy Verified 12/02/18 08:07 Review of Systems ROS Other: All systems not noted in ROS Statement are negative. <Osman Rider - Last Filed: 12/01/18 22:22> ROS Other: All systems not noted in ROS Statement are negative. <Alfred Chapa - Last Filed: 12/02/18 17:57> ROS Statement: Those systems with pertinent positive or pertinent negative responses have been documented in the HPI. Past Medical History Past Medical History: Cancer, GERD/Reflux, Hyperlipidemia, Hypertension, Prostate Disorder, Thyroid Disorder Additional Past Medical History / Comment(s): SKIN CANCER, prostate & liver cancer. CURRENT UTI History of Any Multi-Drug Resistant Organisms: Other MDRO Date of last positivie culture/infection: 09/29/2018 MDRO Source:: UTI Past Surgical History: Adenoidectomy, Hernia Repair, Joint Replacement, Prostate Surgery, Tonsillectomy Additional Past Surgical History / Comment(s): PARATHYROID SX. ESOPHAGEAL SX FOR ACHALASIA. VARICOSE VEIN SX. BILAT CATARAT SX. COLONOSCOPY Past Anesthesia/Blood Transfusion Reactions: No Reported Reaction Past Psychological History: No Psychological Hx Reported Smoking Status: Never smoker Past Alcohol Use History: Rare Past Drug Use History: None Reported - Past Family History Mother Family Medical History: Cancer Additional Family Medical History / Comment(s): COLON <Alfred Chapa - Last Filed: 12/02/18 17:57> General Exam <Osman Rider - Last Filed: 12/01/18 22:22> Limitations: no limitations <Alfred Chapa - Last Filed: 12/02/18 17:57> - General Exam Comments Initial Comments: Constitutional: NAD, AOX3, Pt has pleasant affect. HEENT: NC/AT, trachea midline, neck supple, no lymphadenopathy. Posterior pharynx non erythematous, without exudates. External ears appear normal, without discharge. Mucous membranes moist. Eyes PERRLA, EOM intact. There is no scleral icterus. No pallor noted. Cardiopulmonary: RRR, no murmurs, rubs or gallops, no JVD noted. Lungs CTAB in anterior and posterior morgan. No peripheral edema. Abdominal exam: Abdomen soft and non-distended. Abdomen non-tender to palpation in all 4 quadrants. Bowel sounds active in LLQ. No hepatosplenomegaly. No ecchymosis Neuro: CN II-XII grossly intact. No nuchal rigidity. MSK: Psoas and quadriceps 5/5 bilaterally. Cervical and thoracic spine nontender to palpation. Lumbar spine / right para lumbar spine mildly tender to palpation. No posterior calf tenderness bilaterally, homans sign negative bilaterally. Posterior tibialis and radial pulse +2 bilaterally. Sensation intact in upper and lower extremities. Full active ROM in upper and lower extremities. (Alfred Chapa) Vital Signs 12/01/18 12/01/18 12/02/18 19:48 23:28 01:34 Temperature 98.9 F 98.0 F Pulse Rate 78 60 68 Respiratory 18 18 18 Rate Blood Pressure 137/89 148/73 125/81 O2 Sat by Pulse 96 95 97 Oximetry Medical Decision Making <Osman Rider - Last Filed: 12/01/18 22:22> - Lab Data Result diagrams: 12/02/18 11:31 12/02/18 11:31 <Alfred Chapa - Last Filed: 12/02/18 17:57> - Medical Decision Making Medical decision making; this is an 83-year-old male with low back pain secondary to cancer. The patient has been using [place] at home to some affect. While en route he received fentanyl and morphine. His pains under control. He is not demonstrating any foot drop or increased weakness. No difficulty with bowel movements or urination. The patient will be given 12 Percocet. He'll be following up with his oncologist and approximate 3 days. He feels this would be enough medication to get him through. Dr. Rider (Osman Rider) 53-year-old male patient past medical history of prostate, colon cancer presents to ED with 3 months of back pain. Patient denies any recent falls or trauma. Patient states that there is no acute symptom or injury causing seek care, rather he is having difficulty sleeping at night due to lumbar pain and back spasm, seeks symptomatic relief. Physical exam displayed mild lumbar / para lumbar tenderness to palpation. Pt pain was well controlled in ambulance with morphine and fentanyl. Pt was administered toradol in ED for back pain. Pt had PET scan today. Patient pain was unable to be controlled in ER. Pt to be admitted for pain control. Lumbar CT without contrast was ordered and pending. Pt seen and discussed with Dr. Rider. (Alfred Chapa) Disposition <Osman Rider - Last Filed: 12/01/18 22:22> Is patient prescribed a controlled substance at d/c from ED?: Yes When asked, does pt state using other controlled substances?: No If prescribed controlled substance>3 days was MAPS reviewed?: Prescribed <3 Days If opioid is for acute pain is fill amount 7 days or less?: Yes If Rx opioid, was Start Talking consent form obtained?: Yes Time of Disposition: 21:45 <Alfred Chapa - Last Filed: 12/02/18 17:57> Clinical Impression: Chronic back pain, Lumbar back pain Disposition: ADMITTED IP TO THIS HOSP Condition: Good
[2018-12-01] MEDS ORDERED: KETOROLAC 60 MG/2 ML VIAL IM STA (22:40)
[2018-12-01] MEDS ORDERED: NALOXONE 0.4 MG/ML 1 ML VIAL IV PRN (23:23)
[2018-12-01] MEDS ORDERED: IBUPROFEN 400 MG TAB PO PRN (23:23)
--- NOTE | 2018-12-02 00:01 | CT ---
EXAMINATION TYPE: CT lumbar spine wo con DATE OF EXAM: 12/01/2018 11:49 PM COMPARISON: None HISTORY: LBP; pain radiates down right leg CT DLP: 983.8 mGycm Automated exposure control for dose reduction was used. Unenhanced CT of the lumbar spine was performed. Bone and soft tissue window settings are submitted as well as coronal and sagittal reconstructions. Lumbar vertebra have normal alignment. There is hypertrophic degenerative changes in the lumbar spine . There are destructive changes on both sides of the L4-5 disc. Endplates are noted. There is a large hypertrophic posterior spur at L1-2 with encroachment on the spinal canal and some spinal stenosis. There is also mild spinal stenosis due to facet arthropathy at L3-4. There is slight increased parasp inal density at L4-5. There is no drainable fluid collection. There is increased density anterior to the L4-5 disc consistent with inflammatory mass. There is no significant compression deformity. Sacroiliac joints are intact. 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 Mild spinal stenosis seen at L1-2 and L3-4. Follow-up en mmended.
[2018-12-02] MEDS: HYDROmorphone 1 MG/ML 1 ML SYRINGE IVP PRN ×6 (02:02→23:15)
[2018-12-02] MEDS: SODIUM CHLORIDE 0.9% 1,000 ML IV SCH ×2 (02:03→21:23)
[2018-12-02] MEDS: HYDROcodone/APAP 5-325MG 1 EACH TAB PO PRN ×3 (09:18→18:20)
[2018-12-02] MEDS ORDERED: POLYETHYLENE GLYCOL 3350 17 GM POWD.PACK PO PRN (11:51)
[2018-12-02] MEDS ORDERED: HEPARIN SODIUM,PORCINE 10,000 UNIT/ML 1 ML VIAL IV ONE (11:53)
[2018-12-02] MEDS ORDERED: predniSONE 20 MG TAB PO SCH (12:00)
[2018-12-02] MEDS ORDERED: ACETAMINOPHEN TAB 325 MG TAB PO PRN (12:20)
--- NOTE | 2018-12-02 12:30 | P.CONS ---
History of Present Illness - Reason for Consult Consult date: 12/02/18 Intractable back pain. Hepatocellular and prostate cancer - History of Present Illness The patient is an 83-year-old white male, with a compensated recent past medical history. 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 Doppler of the lower extremities and CTA were negative. Other findings included presence of a 4 cm mass in the right lobe of the liver and marked prostatic enlargement. The patient actually had a known history of prostate enlargement, and recurrent urinary infections with multiple biopsies of the prostate in the past being negative. MRI of the liver confirmed the presence of a 4 cm mass in the right lobe, along with a smaller 2 cm mass in the same lobe. The patient had a liver biopsy that was unfortunately nondiagnostic. He was transferred to [address] [place] [address] and had repeat biopsy there, that was also nondiagnostic. The patient was subsequently discharged on Xarelto. A repeat biopsy was continued at [facility], and was done with temporary inpatient admission with a switch to IV heparin. This was performed on . Liver biopsy was positive for well-differentiated hepatocellular carcinoma. In addition interventional radiology at the time noted a suspicious lymph node in the left presacral periprostatic area. This was also biopsied, and showed prostate cancer. PSA in 10/07 had been 21.1. AFP was normal. The patient was seen in the office last week, with repeat labs showing essentially similar findings. The patient had continued to have lower back pain, with MRI during his 10/07 admission showing evidence of degenerative disease but no evidence of malignancy. He had been noted to have moderate to severe disc disease at L5-6, that is felt to be the source of this back pain. When seen in the office he was complaining of some increase in the back pain, worsened by weightbearing, as his main symptom. He was referred to pain management, and was waiting on appointment to see Dr. Ocampo. The patient also had a PET scan done on 12/01/18 for completion of staging. He came into the hospital because of progressive increase in back pain to where he was having difficulty in transferring or bearing weight. When laying down, he noted no weakness in his legs, loss of sensation, or loss of bowel or bladder control. He was therefore admitted for further management. CT of the lumbar spine done during this admission, now mentioned the possibility of a paraspinal mass in the lower lumbar spine with evidence of destruction at L5/6 Review of Systems Constitutional: Reports chronic pain, Reports weakness Eyes: denies blurred vision, denies pain Ears: deny: decreased hearing, ear discharge, earache, tinnitus Ears, nose, mouth and throat: Denies headache, Denies sore throat Cardiovascular: Reports decreased exercise tolerance Respiratory: Denies cough Gastrointestinal: Denies abdominal pain, Denies diarrhea, Denies nausea, Denies vomiting Genitourinary: Reports as per HPI (Known history of prostatic symptoms, prostate enlargement, and recurrent UTIs in the past), Reports urinary frequency , Reports urinary hesitancy Musculoskeletal: Reports low back pain, Reports shooting leg pain Integumentary: Denies pruritus, Denies rash Neurological: Denies numbness, Denies weakness Psychiatric: Denies anxiety, Denies depression Endocrine: Denies fatigue, Denies weight change Hematologic/Lymphatic: Reports as per HPI Past Medical History Past Medical History: Cancer, GERD/Reflux, Hyperlipidemia, Hypertension, Prostate Disorder, Thyroid Disorder Additional Past Medical History / Comment(s): SKIN CANCER, prostate & liver cancer. CURRENT UTI History of Any Multi-Drug Resistant Organisms: Other MDRO Year Discovered:: 09/29/2018 MDRO Source:: UTI Past Surgical History: Adenoidectomy, Hernia Repair, Joint Replacement, Prostate Surgery, Tonsillectomy Additional Past Surgical History / Comment(s): PARATHYROID SX. ESOPHAGEAL SX FOR ACHALASIA. VARICOSE VEIN SX. BILAT CATARAT SX. COLONOSCOPY Past Anesthesia/Blood Transfusion Reactions: No Reported Reaction Past Psychological History: No Psychological Hx Reported Additional Psychological History / Comment(s): Retired lives with the . Adult daughter is visiting. No tobacco use. No experience. No extensive travel. Smoking Status: Never smoker Past Alcohol Use History: Rare Past Drug Use History: None Reported - Past Family History Mother Family Medical History: Cancer Additional Family Medical History / Comment(s): COLON Medications and Allergies Home Medications Medication Instructions Recorded Confirmed Type Atenolol [Tenormin] 25 mg PO DAILY 01/09/18 12/02/18 History Levothyroxine Sodium [Synthroid] 100 mcg PO DAILY 01/09/18 12/02/18 History Pantoprazole Sodium [Protonix] 40 mg PO DAILY 01/09/18 12/02/18 History Tamsulosin HCl [Flomax] 0.4 mg PO DAILY 01/09/18 12/02/18 History Triamterene-Hctz 37.5-25Mg 1 cap PO DAILY 01/09/18 12/02/18 History [Dyazide 37.5-25 Capsule] amLODIPine [Norvasc] 10 mg PO DAILY 01/09/18 12/02/18 History Acetaminophen Tab [Tylenol] 650 mg PO Q6HR PRN tab 10/25/18 12/02/18 Rx HYDROcodone/APAP 5-325MG [[place] 1 each PO Q4HR PRN tab 10/25/18 12/02/18 Rx 5-325] Cholecalciferol [Vitamin D3] 1,000 unit PO DAILY 12/02/18 12/02/18 History Rivaroxaban [Xarelto] 20 mg PO DAILY 12/02/18 12/02/18 History Sennosides-Docusate Sodium 1 each PO BID PRN 12/02/18 12/02/18 History [Senokot-S] Allergies Allergy/AdvReac Type Severity Reaction Status Date / Time No Known Allergies Allergy Verified 12/02/18 08:07 Physical Exam Vitals: Vital Signs Temp Pulse Pulse Resp BP BP Pulse Ox 12/02/18 02:06 97.6 F 65 16 136/74 98 12/02/18 01:34 98.0 F 68 18 125/81 97 12/01/18 23:28 60 18 148/73 95 12/01/18 19:48 98.9 F 78 18 137/89 96 Intake and Output 12/01/18 12/02/18 12/02/18 22:59 06:59 14:59 Intake Total 80 Balance 80 Intake: Intake, IV Titration 80 Amount Sodium Chloride 0.9% 1, 80 000 ml @ 20 mls/hr IV . Q24H [facility] Rx#:[id number] Other: Weight 81.647 kg 81 kg - Constitutional General appearance: no acute distress - EENT Eyes: EOMI, PERRLA ENT: hearing grossly normal, normal oropharynx - Neck Neck: no lymphadenopathy Thyroid: bilateral: normal size - Respiratory Respiratory: bilateral: CTA - Cardiovascular Rhythm: regular Heart sounds: normal: S1, S2 - Gastrointestinal General gastrointestinal: normal bowel sounds, soft - Integumentary Integumentary: normal - Musculoskeletal Musculoskeletal: generalized weakness, strength equal bilaterally - Psychiatric Psychiatric: A&O x's 3, appropriate affect Results Comments: Report of CT of lumbar spine reviewed Images of CT of lumbar spine, PET scan, as well as prior MRI reviewed personally , with IM Assessment and Plan (1) Intractable low back pain Narrative/Plan: The patient had similar symptoms that his initial presentation, with MRI at that time indicating no evidence of malignancy. The symptoms were felt to be due to the moderate to severe disc disease noted at L5 L6. The patient had been progressive, and as noted, the patient had been referred to pain management for the same but had not seen them yet. He is now presenting with progression in his symptoms. Repeat computed tomography scan at this time notes a possible paraspinal mass with destructive process, with differentials including malignancy as well as discitis with phlegmon. Based on the report, as well as personally reviewed the images, this actually appears to be a new finding or at least a major change from 6 weeks ago. The patient will need further workup to determine the etiology. Case was discussed extensively with the admitting service. The patient has been placed on pain medications. He will be started on IV steroids. MRI of the lumbar spine will be repeated. Orthopedic spine surgery has been consulted. Await results of MRI. If malignancy appears more likely, the patient will need a biopsy, as he has 2 separate known primaries, and it would be necessary to know which one this is metastatic from. We will also await orthopedic spine evaluation after MRI is done, regarding need for more aggressive surgical intervention (whether this is infectious/inflammatory, or malignant) Current Visit: Yes Status: Acute Code(s): M54.5 - LOW BACK PAIN SNOMED Code(s): 95054987501564974 (2) Inferior vena cava thromboembolism Narrative/Plan: This is felt to be related to his underlying malignancy. The patient was on Xarelto as an outpatient. Currently has been switched to IV heparin, based on our discussion with the admitting service, as it is quite likely that he may need interventional procedures during this admission. He can be switched back to orals, once those are completed Current Visit: No Status: Acute Priority: High Code(s): I82.220 - ACUTE EMBOLISM AND THROMBOSIS OF INFERIOR VENA CAVA SNOMED Code(s): 579235109 (3) Hepatocellular carcinoma Narrative/Plan: Prior to this admission, based on imaging so far this had appeared to be limited to the right lobe of the liver. AFP was normal. Await PET scan report , as well as MRI from this admission, to see if there is evidence of metastatic disease. Management will depend on the same Current Visit: Yes Status: Acute Code(s): C22.0 - LIVER CELL CARCINOMA SNOMED Code(s): 200214879 (4) Prostate cancer Narrative/Plan: As noted the patient had multiple prior prostate biopsies that were negative. The diagnosis was made via lymph node biopsy last month. PSA has been stable in the low 20 range. Again, await PET scan results , and further workup for the L-spine finding, to assess for more extensive metastatic disease. Definitive treatment plan will depend on the same Current Visit: Yes Status: Acute Code(s): C61 - MALIGNANT NEOPLASM OF PROSTATE SNOMED Code(s): 077877918 Plan: Case discussed extensively with the admitting service. Defer to them for management of his other medical problems
[2018-12-02 12:41] LABS: Basophils # (A) 0.1 k/uL (0-0.2); Basophils % (A) 1 %; Eosinophils # (A) 0.4 k/uL (0-0.7); Eosinophils % (A) 3 %; HGB 12.7 gm/dL (13.0-17.5); Lymphocytes # (A) 1.8 k/uL (1.0-4.8); Lymphocytes % (A) 17 %; MCH 27.8 pg (25.0-35.0); MCHC 31.7 g/dL (31.0-37.0); MCV 87.8 fL (80.0-100.0); Mean Platelet Volume 6.2; Monocytes # (A) 0.5 k/uL (0-1.0); Monocytes % (A) 5 %; Neutrophils # (A) 8.1 k/uL (1.3-7.7); Neutrophils % (A) 73 %; Platelet Count 298 k/uL (150-450); RBC 4.56 m/uL (4.30-5.90); RDW 15.9 % (11.5-15.5)
[2018-12-02 12:51] LABS: Anion Gap 8 mmol/L; Blood Urea Nitrogen 22 mg/dL (9-20); Calcium 10.2 mg/dL (8.4-10.2); Carbon Dioxide 28 mmol/L (22-30); Chloride 105 mmol/L (98-107); Glucose 98 mg/dL (74-99); Potassium 4.4 mmol/L (3.5-5.1); Sodium 141 mmol/L (137-145)
--- NOTE | 2018-12-02 13:14 | P.HPIM ---
History of Present Illness 83-year-old pleasant gentleman with history of prostate cancer as well as a hepatocellular carcinoma given comments of severe back pain patient had a recent MRI and PET scan patient back pain is uncontrollable no weakness no saddle anesthesia no but does have radicular symptoms radiating to both the hip both the hips and thighs. And, denied any nausea vomiting. Denied any fever chills. She did a lumbar spine CT which showed destructive changes in L4-L5 within evidence of paraspinal mass with evidence of acute and chronic discitis and possible phlegmon and mild spinal stenosis at L1 to L3 4. Patient was started on steroids anti-inflammatories and pain medications. I will call her in consult pain management and a spinal surgeon. 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 We'll Allsop an MRI of the lumbar spine. Patient does have extensive back history from his recent past because of his prostate cancer found to have discitis recently although there is a paraspinal mass or phlegmon is new. There is no evidence of port infection at this time I' ll obtain a CBC basic metabolic profile. Patient will not be started on IV antibiotics but infectious causes are definitely in the differential. is unable to ablate because of severe pain in the back Review of Systems REVIEW OF SYSTEMS: CONSTITUTIONAL: No fever, no malaise, no fatigue. HEENT: No recent visual problems or hearing problems. Denied any sore throat. CARDIOVASCULAR: No chest pain, orthopnea, PND, no palpitations, no syncope. PULMONARY: No shortness of breath, no cough, no hemoptysis. GASTROINTESTINAL: No diarrhea, no nausea, no vomiting, no abdominal pain. NEUROLOGICAL: No headaches, no weakness, no numbness. HEMATOLOGICAL: Denies any bleeding or petechiae. GENITOURINARY: Denies any burning micturition, frequency, or urgency. MUSCULOSKELETAL/RHEUMATOLOGICAL: As mentioned in HPI ENDOCRINE: Denies any polyuria or polydipsia. The rest of the 14-point review of systems is negative. Past Medical History Past Medical History: Cancer, GERD/Reflux, Hyperlipidemia, Hypertension, Prostate Disorder, Thyroid Disorder Additional Past Medical History / Comment(s): SKIN CANCER, prostate & liver cancer. CURRENT UTI History of Any Multi-Drug Resistant Organisms: Other MDRO Date of last positivie culture/infection: 09/29/2018 MDRO Source:: UTI Past Surgical History: Adenoidectomy, Hernia Repair, Joint Replacement, Prostate Surgery, Tonsillectomy Additional Past Surgical History / Comment(s): PARATHYROID SX. ESOPHAGEAL SX FOR ACHALASIA. VARICOSE VEIN SX. BILAT CATARAT SX. COLONOSCOPY Past Anesthesia/Blood Transfusion Reactions: No Reported Reaction Past Psychological History: No Psychological Hx Reported Additional Psychological History / Comment(s): Retired lives with the . Adult daughter is visiting. No tobacco use. No experience. No extensive travel. Smoking Status: Never smoker Past Alcohol Use History: Rare Past Drug Use History: None Reported - Past Family History Mother Family Medical History: Cancer Additional Family Medical History / Comment(s): COLON Medications and Allergies Home Medications Medication Instructions Recorded Confirmed Type Atenolol [Tenormin] 25 mg PO DAILY 01/09/18 12/02/18 History Levothyroxine Sodium [Synthroid] 100 mcg PO DAILY 01/09/18 12/02/18 History Pantoprazole Sodium [Protonix] 40 mg PO DAILY 01/09/18 12/02/18 History Tamsulosin HCl [Flomax] 0.4 mg PO DAILY 01/09/18 12/02/18 History Triamterene-Hctz 37.5-25Mg 1 cap PO DAILY 01/09/18 12/02/18 History [Dyazide 37.5-25 Capsule] amLODIPine [Norvasc] 10 mg PO DAILY 01/09/18 12/02/18 History Acetaminophen Tab [Tylenol] 650 mg PO Q6HR PRN tab 10/25/18 12/02/18 Rx HYDROcodone/APAP 5-325MG [[place] 1 each PO Q4HR PRN tab 10/25/18 12/02/18 Rx 5-325] Cholecalciferol [Vitamin D3] 1,000 unit PO DAILY 12/02/18 12/02/18 History Rivaroxaban [Xarelto] 20 mg PO DAILY 12/02/18 12/02/18 History Sennosides-Docusate Sodium 1 each PO BID PRN 12/02/18 12/02/18 History [Senokot-S] Allergies Allergy/AdvReac Type Severity Reaction Status Date / Time No Known Allergies Allergy Verified 12/02/18 08:07 Physical Exam Vitals: Vital Signs Temp Pulse Pulse Resp BP BP Pulse Ox 12/02/18 12:22 98.0 F 79 16 122/66 96 12/02/18 02:06 97.6 F 65 16 136/74 98 12/02/18 01:34 98.0 F 68 18 125/81 97 12/01/18 23:28 60 18 148/73 95 12/01/18 19:48 98.9 F 78 18 137/89 96 Intake and Output 12/01/18 12/02/18 12/02/18 22:59 06:59 14:59 Intake Total 80 Balance 80 Intake: Intake, IV Titration 80 Amount Sodium Chloride 0.9% 1, 80 000 ml @ 20 mls/hr IV . Q24H [facility] Rx#:[id number] Other: Weight 81.647 kg 81 kg PHYSICAL EXAMINATION: GENERAL: The patient is alert and oriented x3, not in any acute distress. Well developed, well nourished. HEENT: Pupils are round and equally reacting to light. EOMI. No scleral icterus. No conjunctival pallor. Normocephalic, atraumatic. No pharyngeal erythema. No thyromegaly. CARDIOVASCULAR: S1 and S2 present. No murmurs, rubs, or gallops. PULMONARY: Chest is clear to auscultation, no wheezing or crackles. ABDOMEN: Soft, nontender, nondistended, normoactive bowel sounds. No palpable organomegaly. MUSCULOSKELETAL: Patient is having severe pain with the movement of both legs. EXTREMITIES: No cyanosis, clubbing, or pedal edema. NEUROLOGICAL: Gross neurological examination did not reveal any focal deficits. SKIN: No rashes. Results CBC & Chem 7: 12/02/18 11:31 12/02/18 11:31 Labs: Abnormal Lab Results - Last 24 Hours (Table) 12/02/18 12/02/18 Range/Units 11:31 11:31 WBC 11.0 H (3.8-10.6) k/uL Hgb 12.7 L (13.0-17.5) gm/dL RDW 15.9 H (11.5-15.5) % Neutrophils # 8.1 H (1.3-7.7) k/uL BUN 22 H (9-20) mg/dL Thrombosis Risk Factor Assmnt - Choose All That Apply Any of the Below Risk Factors Present?: Yes Each Factor Represents 1 point: Obesity (BMI >25) Other Risk Factors: Yes Each Risk Factor Represents 2 Points: Malignancy Each Risk Factor Represents 3 Points: Age 75 years or older Other congenital or acquired thrombophilia - If yes, enter type in comment: No Thrombosis Risk Factor Assessment Total Risk Factor Score: 6 Thrombosis Risk Factor Assessment Level: High Risk Assessment and Plan Plan: -Intractable lower back pain and radicular pain no red flag signs or weakness at this time: Will obtain MRI of the lumbar spine, pain management consultation and orthopedic consultation as mentioned above oncology will be consulted as well. Patient was started on anti-inflammatory medications including systemic steroids GI prophylaxis. Hydromorphone and Morrison will be continued. -History of a Hepatocellular carcinoma and prostate cancer -Inferior vena cava DVT: Recent past patient will be switched to IV heparin oral anti-correlation will be held as there is a possibility of intervention for the paraspinal mass or phlegmon Gastroesophageal reflux disease -Hyperlipidemia -Hypertension -Benign prostatic hypertrophy -Hypothyroidism For above-mentioned chronic medical problems patient will be resumed and continued on appropriate home medications.
[2018-12-02 13:27] LABS: INR 1.1 (<1.2); Partial Thromboplastin Time 27.9 sec (22.0-30.0); Prothrombin Time 11.6 sec (9.0-12.0)
[2018-12-02] MEDS: HEPARIN SOD,PORK IN 0.45% NACL 25,000 UNIT in 0.45% NACL 1 250ML.BAG IV SCH (13:29)
[2018-12-02] MEDS: SENNOSIDES 8.6 MG TAB PO SCH ×2 (13:33→21:22)
[2018-12-02] MEDS: CYCLOBENZAPRINE 5 MG TAB PO SCH ×2 (15:50→21:22)
[2018-12-02 16:29] LABS: Appearance,Urine Cloudy (Clear); Bacteria,Urine Moderate /hpf; Bilirubin,Urine Negative (Negative); Blood,Urine Moderate (Negative); Color,Urine Yellow; Glucose,Urine (UA) Negative (Negative); Ketones,Urine Negative (Negative); Leukocyte Esterase,Urine Large (Negative); Mucus,Urine Few /hpf; Nitrite,Urine Positive (Negative); Protein,Urine 1+ (Negative); RBC,Urine 28 /hpf (0-5); Specific Gravity,Urine 1.015 (1.001-1.035); Urobilinogen,Urine <2.0 mg/dL (<2.0)
[2018-12-02] MEDS: KETOROLAC 30 MG/ML 1 ML VIAL IVP PRN (16:58)
[2018-12-02] MEDS: DEXAMETHASONE SOD PHOSPHATE 4 MG/ML 1 ML VIAL IV SCH ×2 (16:59→23:15)
[2018-12-02 17:03] LABS: Glucose,Whole Blood 92 mg/dL (75-99)
[2018-12-02 23:57] LABS: Glucose,Whole Blood 145 mg/dL (75-99)
[2018-12-03] MEDS: HYDROmorphone 1 MG/ML 1 ML SYRINGE IVP PRN ×4 (04:40→18:39)
[2018-12-03] MEDS: HEPARIN SOD,PORK IN 0.45% NACL 25,000 UNIT in 0.45% NACL 1 250ML.BAG IV SCH ×2 (04:40→23:10)
[2018-12-03] MEDS: LEVOTHYROXINE 100 MCG TAB PO SCH (04:40)
[2018-12-03] MEDS: DEXAMETHASONE SOD PHOSPHATE 4 MG/ML 1 ML VIAL IV SCH ×2 (04:40→13:57)
[2018-12-03 05:51] LABS: Glucose,Whole Blood 170 mg/dL (75-99)
[2018-12-03 06:41] LABS: Glucose,Whole Blood 160 mg/dL (75-99)
[2018-12-03 07:43] LABS: Basophils % (A) 0 %; Eosinophils % (A) 0 %; HCT 40.2 % (39.0-53.0); HGB 12.9 gm/dL (13.0-17.5); Lymphocytes # (A) 1.1 k/uL (1.0-4.8); Lymphocytes % (A) 14 %; MCH 28.4 pg (25.0-35.0); MCHC 32.2 g/dL (31.0-37.0); MCV 88.1 fL (80.0-100.0); Mean Platelet Volume 6.7; Monocytes # (A) 0.1 k/uL (0-1.0); Monocytes % (A) 2 %; Neutrophils # (A) 6.7 k/uL (1.3-7.7); Neutrophils % (A) 83 %; Platelet Count 264 k/uL (150-450); RBC 4.56 m/uL (4.30-5.90); RDW 15.6 % (11.5-15.5); WBC 8.1 k/uL (3.8-10.6)
[2018-12-03 08:05] LABS: Anion Gap 5 mmol/L; Blood Urea Nitrogen 22 mg/dL (9-20); Calcium 10.2 mg/dL (8.4-10.2); Carbon Dioxide 30 mmol/L (22-30); Chloride 106 mmol/L (98-107); Glucose 161 mg/dL (74-99); Potassium 4.9 mmol/L (3.5-5.1); Sodium 141 mmol/L (137-145)
[2018-12-03] MEDS: CYCLOBENZAPRINE 5 MG TAB PO SCH ×3 (08:51→20:54)
[2018-12-03] MEDS: ATENOLOL 25 MG TAB PO SCH (08:51)
[2018-12-03] MEDS: SENNOSIDES 8.6 MG TAB PO SCH ×2 (08:51→20:54)
[2018-12-03] MEDS: PANTOPRAZOLE 40 MG TABLET PO SCH (08:52)
[2018-12-03] MEDS: TAMSULOSIN 0.4 MG CAP.ER.24H PO SCH (08:52)
[2018-12-03] MEDS: HYDROcodone/APAP 5-325MG 1 EACH TAB PO PRN (10:14)
[2018-12-03] MEDS: KETOROLAC 30 MG/ML 1 ML VIAL IVP PRN ×2 (10:18→20:54)
--- NOTE | 2018-12-03 10:36 | MR ---
EXAMINATION TYPE: MR lumbar spine wo/w con DATE OF EXAM: 12/03/2018 COMPARISON: 12/01/2018 HISTORY: lumbar back pain. CT findings concerning for discitis/osteomyelitis with paraspinal abscess on the exam of 12/01/2018 TECHNIQUE: Multiplanar, multisequence images of the lumbar spine were acquired utilizing [address] gadolinium contrast. FINDINGS: There is a markedly enlarged prostate gland seen on the localizer images. There is abnormal bone marrow signal of the L4 and L5 vertebral bodies as well as the superior plate of S1 with abnorm al high intensity signal within the L4-L5 intervertebral disc and to a lesser degree of the L5-S1 int ervertebral disc. There is also diffuse abnormal enhancement throughout these areas of abnormal bone marrow signal. Findings are consistent with discitis/osteomyelitis. There is also diffuse slightly ab normal bone marrow signal throughout the lumbar spine with T1 hypointensity and T2 hypointensity with patchy areas of preserved T1/T2 hyperintense bone marrow. Finding may be on the basis of anemia give n its only slight T1 hypointensity. Multilevel disc desiccation is also seen. Beginning at the level of the inferior L4 endplate and extending posterior to the L5 vertebral body t here is an elongated epidural abscess that is T2 mixed signal, T1 hypointense and demonstrates enhanc ement. This measures approximately 2.8 cm in craniocaudal dimension. Extensive surrounding phlegmonou s changes are seen circumferentially. No discrete psoas muscular fluid collection is seen or retroper itoneal fluid collection. Sacral nerve root cysts are incidentally seen. There is a nonenhancing T2 hyperintense and T1 hypointense probable left medial renal cyst measuring 7.0 mm in the midpole and smaller 3 mm similar lesion in the lower pole on the left. L1-L2: There is a central disc herniation superimposed upon a broad-based disc bulge with facet arthr opathy and uncovertebral hypertrophy resulting in moderate right and moderate to severe left neural f oraminal narrowing and mild spinal canal stenosis. L2-L3: There is a large broad-based disc bulge, facet arthropathy and ligamentum flavum buckling resu lting in moderate bilateral neural foraminal narrowing with mild spinal canal stenosis. L3-L4: There is a left eccentric broad-based disc bulge, facet arthropathy and ligamentum flavum lott ling resulting in moderate bilateral neural foraminal narrowing and moderate spinal canal stenosis. L4-L5: Findings described above are seen as discitis/osteomyelitis and epidural abscess. This results in moderate spinal canal stenosis and severe bilateral neural foraminal narrowing with nerve root im pingement. L5-S1: Findings of osteomyelitis discitis are again seen at this level, to lesser degree than the lev el above. Additionally there is a central disc herniation, ligamentum flavum buckling and facet arthr opathy resulting in moderate bilateral neural foraminal narrowing. No significant spinal canal stenos is. IMPRESSION: 1. As discussed on the CT lumbar spine dated 12/01/2018 there is redemonstration of acute discitis/ost eomyelitis at L4-L5 and to a lesser degree at L5-S1 with associated elongated epidural abscess center ed at the L4-L5 intervertebral disc space crating moderate spinal canal stenosis and severe neural fo raminal narrowing at L4-L5 with nerve root impingement bilaterally. 2. Central disc herniation at L1-L2 in combination with degenerative disc disease resulting in modera te to severe left neural foraminal narrowing, moderate right neural foraminal narrowing and mild spin al canal stenosis. 3. Moderate to severe multilevel degenerative disc disease as described above resulting in variable d egrees of neural foraminal narrowing and variable degrees of spinal canal stenosis as described above . 4. Overall the bone marrow signal of the upper lumbar spine is lower limits of normal. Correlate with CBC for anemia. Diffuse osseous metastasis is considered less likely. 5. Markedly enlarged prostate gland partially visualized on the localizer images only.
[2018-12-03 11:04] LABS: Glucose,Whole Blood 128 mg/dL (75-99)
[2018-12-03 12:55] LABS: Hemoglobin A1C 6.2 % (4.0-6.0)
[2018-12-03] MEDS ORDERED: VANCOMYCIN IV PER PHARMACY 1 EACH MISC MISCELLANE PRN (13:55)
[2018-12-03] MEDS: HEPARIN SODIUM,PORCINE 5,000 UNIT/ML 1 ML VIAL IV PRN (14:23)
[2018-12-03 14:26] LABS: Albumin 3.3 g/dL (3.5-5.0); Bilirubin, Delta 0.2 mg/dL (0.0-0.2); Bilirubin,Unconjugated 0.5 mg/dL (0.0-1.1); Total Bilirubin 0.7 mg/dL (0.2-1.3); Total Protein 6.7 g/dL (6.3-8.2)
[2018-12-03] MEDS ORDERED: VANCOMYCIN 1,500 MG in SODIUM CHLORIDE 0.9% 250 ML IVPB ONE (14:30)
--- NOTE | 2018-12-03 14:46 | P.PAINCN ---
History of Present Illness - Reason for Consult Consult date: 12/03/18 - History of Present Illness This is a 83 years old male, with a history of prostate cancer and hepatocellular carcinoma, he was admitted to [facility] because of severe intractable low back pain, and pain patient had MRI of the lumbar spine done showed possible discitis versus epidural abscess, at L4 5 and L5-S1 levels, patient currently on [place] 5/325 every 4 hours, and Flexeril 5 mg 3 times a day, and Dilaudid 0.5 mg every 3 hours, he continued to have severe pain , the pain is constant and increases with any movement, he feels some weakness in his left lower extremity, patient had a history of DVT and inferior vena cava thrombus and he was on anticoagulation medication as an outpatient, Past Medical History Past Medical History: Cancer, GERD/Reflux, Hyperlipidemia, Hypertension, Prostate Disorder, Thyroid Disorder Additional Past Medical History / Comment(s): SKIN CANCER, prostate & liver cancer. CURRENT UTI History of Any Multi-Drug Resistant Organisms: Other MDRO Year Discovered:: 09/29/2018 MDRO Source:: UTI Past Surgical History: Adenoidectomy, Hernia Repair, Joint Replacement, Prostate Surgery, Tonsillectomy Additional Past Surgical History / Comment(s): PARATHYROID SX. ESOPHAGEAL SX FOR ACHALASIA. VARICOSE VEIN SX. BILAT CATARAT SX. COLONOSCOPY Past Anesthesia/Blood Transfusion Reactions: No Reported Reaction Past Psychological History: No Psychological Hx Reported Smoking Status: Never smoker Past Alcohol Use History: Rare Past Drug Use History: None Reported - Past Family History Mother Family Medical History: Cancer Additional Family Medical History / Comment(s): COLON Medications and Allergies Home Medications Medication Instructions Recorded Confirmed Type Atenolol [Tenormin] 25 mg PO DAILY 01/09/18 12/02/18 History Levothyroxine Sodium [Synthroid] 100 mcg PO DAILY 01/09/18 12/02/18 History Pantoprazole Sodium [Protonix] 40 mg PO DAILY 01/09/18 12/02/18 History Tamsulosin HCl [Flomax] 0.4 mg PO DAILY 01/09/18 12/02/18 History Triamterene-Hctz 37.5-25Mg 1 cap PO DAILY 01/09/18 12/02/18 History [Dyazide 37.5-25 Capsule] amLODIPine [Norvasc] 10 mg PO DAILY 01/09/18 12/02/18 History Acetaminophen Tab [Tylenol] 650 mg PO Q6HR PRN tab 10/25/18 12/02/18 Rx HYDROcodone/APAP 5-325MG [[place] 1 each PO Q4HR PRN tab 10/25/18 12/02/18 Rx 5-325] Cholecalciferol [Vitamin D3] 1,000 unit PO DAILY 12/02/18 12/02/18 History Rivaroxaban [Xarelto] 20 mg PO DAILY 12/02/18 12/02/18 History Sennosides-Docusate Sodium 1 each PO BID PRN 12/02/18 12/02/18 History [Senokot-S] Allergies Allergy/AdvReac Type Severity Reaction Status Date / Time No Known Allergies Allergy Verified 12/02/18 08:07 Physical Exam Vitals: Vital Signs Temp Pulse Resp BP Pulse Ox 12/03/18 11:30 97.4 F L 67 16 114/64 96 12/03/18 08:00 64 12/03/18 04:50 97 F L 64 16 105/61 95 12/02/18 23:38 16 12/02/18 21:00 97 F L 73 16 128/68 94 L 12/02/18 19:31 16 Intake and Output 12/02/18 12/03/18 12/03/18 22:59 06:59 14:59 Intake Total 158.172 105.625 121.25 Output Total 500 450 Balance -341.828 -344.375 121.25 Intake: Intake, IV Titration 158.172 105.625 121.25 Amount Heparin Sod,Pork in 0.45% 98.172 105.625 121.25 NaCl 25,000 unit In 0.45 % NaCl 1 250ml.bag @ 18 UNITS/KG/HR 14.58 mls/hr IV .Q17H9M [facility] Rx#: [id number] Sodium Chloride 0.9% 1, 60 000 ml @ 20 mls/hr IV . Q24H [facility] Rx#:[id number] Output: Urine 500 450 Other: Voiding Method Urinal Urinal # Voids 1 1 Social history : not smoker , NO ETOH , NO Illegal drugs use . Family history : positive for Review of Systems : 1- Constitutional : no chills , no fever , no night sweats , 2- Ears : no ear discharge , no change in hearing 3-Nose, Mouth ,Throat ; no bleeding gums, no sore throat , no epistaxis , 4-Cardiovascular : Denies chest pain, , no orthopnea , no palpitation 5-Respiratory : Denies cough , no dyspnea , no hemoptysis 6-Gastrointestinal :, no change in bowel habits , no coffee- ground emesis . 7-Genitourinary : History of prostate cancer 8-Musculoskeletal : No gait dysfunction , report low back pain , 9- Neurological : no ataxia , no tremor , no sezure , 10-Psychatric , no suicidal ideation no hallucination 11- Endocrine : no cold intolerence , no polyuria , no polydypsia , 12-Hematologic : no easy bleeding , no easy brusing , 13-Allergic / immunology : no angioedema , no wheezing ,no allergic rhinitis 14-Integumentary : no brttle nails , no change hair / nails , no foot/leg ulcers . Physical Examinations : 1-Constitutional : Cooperative , not in acute distress . 2-HEENT : nech ; supple , no Lymphadenopathy , no Thyromegaly , :eyes , no icterus, no photophobia . ENT : , normal oropharynx , no Thrush 3- Respiratory : Chest clear to auscultations Bilaterally , no wheezing 4- Cardiovascular : regular rate and rhythem , S1 , S2 , no S3 , no S4. 5- Gastrointestinal: abdomen soft no tenderness , no organomegally . 6- Genitourinary : Defferred . 7-Integumentary : No cellulitis , no ulcers , normal skin turgor , no cyanotic . 8- neurologic : Cranial nerve II to XII intact , no focal neurological deffecit 9-psychatric : alert , oriented X 3 , appropriate affect , intact judgment and insight . 10-Lymphatic : no Lymphadenopathy. 11- musculoskeltal: Patient is not able to ambulate because of severe low back pain Lumber spine moter stegnth lower extremities ,thigh and legs 5/5 Right side , 4/5 Left side deep tendon reflexes : normal Knee Jerk , normal ankle Jerk positive lumber facet Loading Test Range of motion of the lumbar spine Flexion 30 degrees, extension 10 degrees strait leg raising test , positive at 30 degree Fabere test positive RT and positive LT . Results CBC & Chem 7: 12/03/18 07:12 12/03/18 07:12 Labs: Abnormal Lab Results - Last 24 Hours (Table) 12/02/18 12/02/18 12/02/18 Range/Units 12:44 16:00 19:16 Hgb (13.0-17.5) gm/dL RDW (11.5-15.5) % APTT 91.8 H (22.0-30.0) sec BUN (9-20) mg/dL Glucose (74-99) mg/dL POC Glucose (mg/dL) (75-99) mg/dL Hemoglobin A1c 6.2 H (4.0-6.0) % Albumin (3.5-5.0) g/dL Urine Protein 1+ H (Negative) Urine Blood Moderate H (Negative) Ur Leukocyte Esterase Large H (Negative) Urine RBC 28 H (0-5) /hpf Urine WBC 155 H (0-5) /hpf Urine WBC Clumps Few H (None) /hpf Urine Bacteria Moderate H (None) /hpf Urine Mucus Few H (None) /hpf 12/02/18 12/03/18 12/03/18 Range/Units 23:50 01:35 05:49 Hgb (13.0-17.5) gm/dL RDW (11.5-15.5) % APTT 49.6 H (22.0-30.0) sec BUN (9-20) mg/dL Glucose (74-99) mg/dL POC Glucose (mg/dL) 145 H 170 H (75-99) mg/dL Hemoglobin A1c (4.0-6.0) % Albumin (3.5-5.0) g/dL Urine Protein (Negative) Urine Blood (Negative) Ur Leukocyte Esterase (Negative) Urine RBC (0-5) /hpf Urine WBC (0-5) /hpf Urine WBC Clumps (None) /hpf Urine Bacteria (None) /hpf Urine Mucus (None) /hpf 12/03/18 12/03/18 12/03/18 Range/Units 06:39 07:12 07:12 Hgb 12.9 L (13.0-17.5) gm/dL RDW 15.6 H (11.5-15.5) % APTT (22.0-30.0) sec BUN 22 H (9-20) mg/dL Glucose 161 H (74-99) mg/dL POC Glucose (mg/dL) 160 H (75-99) mg/dL Hemoglobin A1c (4.0-6.0) % Albumin (3.5-5.0) g/dL Urine Protein (Negative) Urine Blood (Negative) Ur Leukocyte Esterase (Negative) Urine RBC (0-5) /hpf Urine WBC (0-5) /hpf Urine WBC Clumps (None) /hpf Urine Bacteria (None) /hpf Urine Mucus (None) /hpf 12/03/18 12/03/18 12/03/18 Range/Units 07:12 09:00 11:02 Hgb (13.0-17.5) gm/dL RDW (11.5-15.5) % APTT 41.7 H (22.0-30.0) sec BUN (9-20) mg/dL Glucose (74-99) mg/dL POC Glucose (mg/dL) 128 H (75-99) mg/dL Hemoglobin A1c (4.0-6.0) % Albumin 3.3 L (3.5-5.0) g/dL Urine Protein (Negative) Urine Blood (Negative) Ur Leukocyte Esterase (Negative) Urine RBC (0-5) /hpf Urine WBC (0-5) /hpf Urine WBC Clumps (None) /hpf Urine Bacteria (None) /hpf Urine Mucus (None) /hpf Microbiology - Last 24 Hours (Table) 12/02/18 16:00 Urine Culture - Preliminary Urine,Voided Comments: MRI of the lumbar spine reviewed and mainly showed discitis and epidural space at the L4 5 ET skin of the lumbar spine destructive changes at the L4 5 paraspinal mass discitis versus phlegmon and spinal stenosis Assessment and Plan Plan: Assessment and plan= acute/severe low back pain, secondary to discitis versus epidural abscess, with possible paraspinal mass and destructive changes at the L4 5, patient had a history of hepatocellular carcinoma and prostate cancer, currently patient on [place] 5/325 which is not helping to control his pain, and he tried previously [place] 7.5/325 as an outpatient without any significant improvement of his pain. Recommend to discontinue [place] , start patient on Percocet 7.5/325 every 6 hours , recommend discontinue Toradol, because patient currently on heparin, and the combination increased risk of bleeding , patient could benefit from [place] 2 inhibitors, patient is not a candidate for any pain management interventions Time with Patient: Greater than 30 PQRS Measure Charge Sheet PQRS Narrative: Smoking Status Never smoker Do You Want the Pneumonia Vaccine Up to Date Vaccine AT THIS TIME? Blood Pressure [Right Arm] 114/64 Blood Pressure 125/81 Pain Intensity [Lower Back] 8 Pain Intensity [Hip] 8 Pain Intensity 0 Pain Scale Used Numeric (1 - 10) Scale Used sleeping Home Medications: Ambulatory Orders Atenolol [Tenormin] 25 mg PO DAILY 01/09/18 Levothyroxine Sodium [Synthroid] 100 mcg PO DAILY 01/09/18 Pantoprazole Sodium [Protonix] 40 mg PO DAILY 01/09/18 Tamsulosin HCl [Flomax] 0.4 mg PO DAILY 01/09/18 Triamterene-Hctz 37.5-25Mg [Dyazide 37.5-25 Capsule] 1 cap PO DAILY 01/09/18 amLODIPine [Norvasc] 10 mg PO DAILY 01/09/18 Acetaminophen Tab [Tylenol] 650 mg PO Q6HR PRN tab 10/25/18 HYDROcodone/APAP 5-325MG [[place] 5-325] 1 each PO Q4HR PRN tab 10/25/18 Cholecalciferol [Vitamin D3] 1,000 unit PO DAILY 12/02/18 Rivaroxaban [Xarelto] 20 mg PO DAILY 12/02/18 Sennosides-Docusate Sodium [Senokot-S] 1 each PO BID PRN 12/02/18
[2018-12-03] MEDS: oxyCODONE-APAP 7.5-325MG 1 EACH TAB PO PRN (17:06)
[2018-12-03 17:08] LABS: Glucose,Whole Blood 186 mg/dL (75-99)
--- NOTE | 2018-12-03 17:22 | P.PN ---
Subjective Progress Note Date: 12/03/18 Principal diagnosis: New Dual Primary Malignancies, Increased pain. Griffin went down for MRI this am to further assess spine. I have discussed this in detail with radiology along with PET results. Appears the concern is related to more osteomyelitis, diskitis versus a metastatic entity. I have discussed the findings that do not show convincing evidence for metastatic disease on PET. Griffin is having difficult time with movement, he does still have strength in bilateral lower extremities and no unilateral weakness noted. IV Dex/PPI, New consult has been placed for Dr. Acosta Infectious disease. Objective - Vital Signs Vital signs: Vital Signs Temp 97 F L 12/03/18 04:50 Pulse 64 12/03/18 04:50 Resp 16 12/03/18 04:50 BP 105/61 12/03/18 04:50 Pulse Ox 95 12/03/18 04:50 Intake & Output 12/02/18 12/03/18 12/03/18 18:59 06:59 18:59 Intake Total 263.797 Output Total 500 450 Balance -500 -186.203 Intake: Intake, IV Titration 263.797 Amount Heparin Sod,Pork in 0.45% 203.797 NaCl 25,000 unit In 0.45 % NaCl 1 250ml.bag @ 18 UNITS/KG/HR 14.58 mls/hr IV .Q17H9M DIPESH Rx#: [id number] Sodium Chloride 0.9% 1, 60 000 ml @ 20 mls/hr IV . Q24H DPIESH Rx#:[id number] Output: Urine 500 450 Other: Voiding Method Urinal # Voids 1 # Bowel Movements 0 - Exam Constitutional General appearance: no acute distress - EENT Eyes: EOMI, PERRLA ENT: hearing grossly normal, normal oropharynx - Neck Neck: no lymphadenopathy Thyroid: bilateral: normal size - Respiratory Respiratory: bilateral: CTA - Cardiovascular Rhythm: regular Heart sounds: normal: S1, S2 - Gastrointestinal General gastrointestinal: normal bowel sounds, soft - Integumentary Integumentary: normal - Musculoskeletal Musculoskeletal: generalized weakness, strength equal bilaterally - Psychiatric Psychiatric: A&O x's 3, appropriate affect - Labs CBC & Chem 7: 12/03/18 07:12 12/03/18 07:12 Labs: Abnormal Lab Results - Last 24 Hours (Table) 12/02/18 12/02/18 12/02/18 Range/Units 11:31 11:31 16:00 WBC 11.0 H (3.8-10.6) k/uL Hgb 12.7 L (13.0-17.5) gm/dL RDW 15.9 H (11.5-15.5) % Neutrophils # 8.1 H (1.3-7.7) k/uL APTT (22.0-30.0) sec BUN 22 H (9-20) mg/dL Glucose (74-99) mg/dL POC Glucose (mg/dL) (75-99) mg/dL Urine Protein 1+ H (Negative) Urine Blood Moderate H (Negative) Ur Leukocyte Esterase Large H (Negative) Urine RBC 28 H (0-5) /hpf Urine WBC 155 H (0-5) /hpf Urine WBC Clumps Few H (None) /hpf Urine Bacteria Moderate H (None) /hpf Urine Mucus Few H (None) /hpf 12/02/18 12/02/18 12/03/18 Range/Units 19:16 23:50 01:35 WBC (3.8-10.6) k/uL Hgb (13.0-17.5) gm/dL RDW (11.5-15.5) % Neutrophils # (1.3-7.7) k/uL APTT 91.8 H 49.6 H (22.0-30.0) sec BUN (9-20) mg/dL Glucose (74-99) mg/dL POC Glucose (mg/dL) 145 H (75-99) mg/dL Urine Protein (Negative) Urine Blood (Negative) Ur Leukocyte Esterase (Negative) Urine RBC (0-5) /hpf Urine WBC (0-5) /hpf Urine WBC Clumps (None) /hpf Urine Bacteria (None) /hpf Urine Mucus (None) /hpf 12/03/18 12/03/18 12/03/18 Range/Units 05:49 06:39 07:12 WBC (3.8-10.6) k/uL Hgb 12.9 L (13.0-17.5) gm/dL RDW 15.6 H (11.5-15.5) % Neutrophils # (1.3-7.7) k/uL APTT (22.0-30.0) sec BUN (9-20) mg/dL Glucose (74-99) mg/dL POC Glucose (mg/dL) 170 H 160 H (75-99) mg/dL Urine Protein (Negative) Urine Blood (Negative) Ur Leukocyte Esterase (Negative) Urine RBC (0-5) /hpf Urine WBC (0-5) /hpf Urine WBC Clumps (None) /hpf Urine Bacteria (None) /hpf Urine Mucus (None) /hpf 12/03/18 12/03/18 Range/Units 07:12 07:12 WBC (3.8-10.6) k/uL Hgb (13.0-17.5) gm/dL RDW (11.5-15.5) % Neutrophils # (1.3-7.7) k/uL APTT 41.7 H (22.0-30.0) sec BUN 22 H (9-20) mg/dL Glucose 161 H (74-99) mg/dL POC Glucose (mg/dL) (75-99) mg/dL Urine Protein (Negative) Urine Blood (Negative) Ur Leukocyte Esterase (Negative) Urine RBC (0-5) /hpf Urine WBC (0-5) /hpf Urine WBC Clumps (None) /hpf Urine Bacteria (None) /hpf Urine Mucus (None) /hpf Microbiology - Last 24 Hours (Table) 12/02/18 16:00 Urine Culture - Preliminary Urine,Voided Assessment and Plan Plan: (1) Intractable low back pain Narrative/Plan: - The patient had similar symptoms that his initial presentation last month, his MRI at that time indicating no evidence of malignancy. - The symptoms were felt to be due to the moderate to severe disc disease noted at L5 L6. - Treatment as poutpatient has been Narcotic and Steroid management, as well as , referral to PMR. They have not seen yet He is now presenting with progression in his symptoms. Repeat computed tomography scan at this time notes a possible paraspinal mass with destructive process, with differentials including malignancy as well as discitis with phlegmon. Based on the report, as well as personally reviewed the images, this actually appears to be a new finding or at least a major change from 6 weeks ago. - He underwent a repeat MRI of the lumbar spine today. Orthopedic spine surgery has been consulted. - Dr. Acosta consulted regarding likely osteomyelitis/diskitis - Discussed results of PET and MRI in detail with radiology. 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 Was on xarelto as outpatient - Xarelto on hold for potential IR procedure of new finding in CT - Heparin Drip at this time. Current Visit: No Status: Acute Priority: High Code(s): I82.220 - ACUTE EMBOLISM AND THROMBOSIS OF INFERIOR VENA CAVA SNOMED Code(s): 310285671 (3) Hepatocellular carcinoma Narrative/Plan: - Appears to be localized likely candidate chemoembolization of liver, will need to address acute lumbarsacral infectious process prior to intervention for liver lesion. Current Visit: Yes Status: Acute Code(s): C22.0 - LIVER CELL CARCINOMA SNOMED Code(s): 964843748 (4) Prostate cancer Narrative/Plan: - As noted the patient had multiple prior prostate biopsies that were negative. The diagnosis was made via lymph node biopsy last month. PSA has been stable in the low 20 range. Current Visit: Yes Status: Acute Code(s): C61 - MALIGNANT NEOPLASM OF PROSTATE SNOMED Code(s): 340567235 Discussed everything above with daughter and and patient, all questions answered. Will await recs and expectations from ID.
[2018-12-03] MEDS: CEFEPIME 1 GM in SODIUM CHLORIDE 0.9% 50 ML IVPB SCH ×2 (17:32→23:12)
--- NOTE | 2018-12-03 20:54 | P.CNOR ---
<Leroy Mckeon - Last Filed: 12/03/18 20:43> History of Present Illness - [facility] Consult date: 12/03/18 Requesting physician: Serena Pickering Consult reason: low back pain, other (Right lower extremity radiculopathy; inability ambulate; L4-5 acute discitis/osteomyelitis) History of present illness: Patient is a very pleasant 83-year-old male who is well known to our service who is seen and examined at the bedside by Dr. Miguel Kirby and myself for further evaluation in regards to his intractable back pain and right lower extremity radiculopathy. He was previously seen and examined in the hospital in September 2018. Since that time he has had a significant exacerbation of back pain. He states his back pain is better controlled while lying flat in bed. Currently his pain is severe down the right lower extremity with increased ambulation and activities. He states following previous discharge from the hospital he felt he was doing fairly well until this past Monday, 10/2019. Prior to that time he is able to ambulate with the assistance of a walker. He states now due to his pain he is unable to ambulate. He is unable to specifically describe his lower extremity pain but states the entire leg is painful. He denies specific weakness in bilateral lower extremities. He is not currently experiencing any significant left lower extremity radiculopathy. In his last visit imaging showed changes within the liver and he was waiting for liver biopsy after ultrasound results showed the liver was enlarged with 2 hypoechoic mass suspicious for metastatic disease. He was found to have hepatocellular carcinoma. Given his severe pain in his lumbar spine, a PET scan was performed on 12/01/2018. A CT of the lumbar spine has also been performed as well as an MRI of the lumbar spine. On imaging he was found to have bony destructive changes at L4-5 and L5-S1 with evidence of paraspinal mass consistent with acute discitis/osteomyelitis along with epidural abscess. These findings were not evident on previous imaging taken at his last admission in September 2018. Patient has continued to follow with Dr. Singletary in oncology. His symptoms have progressed as compared to his previous admittance to the hospital. Patient does have a history of prostate cancer. Patient states he was seen and examined by pain management today. He states he does not have a brace for his lumbar spine. He states that this time he would like to have some control his symptoms but would like to avoid invasive treatments if he is able to do so. He would consider treatment options that could improve his quality of life. 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 Patient denies any new accidents or injuries since last being seen and examined. Past Medical History Past Medical History: Cancer, GERD/Reflux, Hyperlipidemia, Hypertension, Prostate Disorder, Thyroid Disorder Additional Past Medical History / Comment(s): SKIN CANCER, prostate & liver cancer. CURRENT UTI History of Any Multi-Drug Resistant Organisms: Other MDRO Year Discovered:: 09/29/2018 MDRO Source:: UTI Past Surgical History: Adenoidectomy, Hernia Repair, Joint Replacement, Prostate Surgery, Tonsillectomy Additional Past Surgical History / Comment(s): PARATHYROID SX. ESOPHAGEAL SX FOR ACHALASIA. VARICOSE VEIN SX. BILAT CATARAT SX. COLONOSCOPY Past Anesthesia/Blood Transfusion Reactions: No Reported Reaction Past Psychological History: No Psychological Hx Reported Smoking Status: Never smoker Past Alcohol Use History: Rare Past Drug Use History: None Reported - Past Family History Mother Family Medical History: Cancer Additional Family Medical History / Comment(s): COLON Medications and Allergies Home Medications Medication Instructions Recorded Confirmed Type Atenolol [Tenormin] 25 mg PO DAILY 01/09/18 12/02/18 History Levothyroxine Sodium [Synthroid] 100 mcg PO DAILY 01/09/18 12/02/18 History Pantoprazole Sodium [Protonix] 40 mg PO DAILY 01/09/18 12/02/18 History Tamsulosin HCl [Flomax] 0.4 mg PO DAILY 01/09/18 12/02/18 History Triamterene-Hctz 37.5-25Mg 1 cap PO DAILY 01/09/18 12/02/18 History [Dyazide 37.5-25 Capsule] amLODIPine [Norvasc] 10 mg PO DAILY 01/09/18 12/02/18 History Acetaminophen Tab [Tylenol] 650 mg PO Q6HR PRN tab 10/25/18 12/02/18 Rx HYDROcodone/APAP 5-325MG [[place] 1 each PO Q4HR PRN tab 10/25/18 12/02/18 Rx 5-325] Cholecalciferol [Vitamin D3] 1,000 unit PO DAILY 12/02/18 12/02/18 History Rivaroxaban [Xarelto] 20 mg PO DAILY 12/02/18 12/02/18 History Sennosides-Docusate Sodium 1 each PO BID PRN 12/02/18 12/02/18 History [Senokot-S] Allergies Allergy/AdvReac Type Severity Reaction Status Date / Time No Known Allergies Allergy Verified 12/02/18 08:07 Physical Examination Physical exam: Patient is awake, alert, and oriented 3 Vital signs stable Good chest excursion with deep inspiration and expiration Examination of lumbar spine reveals skin is intact with no abrasions, lacerations, or bruises; no erythema, purulence or signs of infection Significant pain on palpation along the midline of the lower lumbar spine Increased low back pain with rotation while in bed Dorsiflexion, plantarflexion, and extensor hallucis longus positive sustained bilaterally Lower extremity strength 5/5 bilaterally Patient is able to lift legs independently in bed without but movements are somewhat slow No signs or symptoms of DVT; no calf pain No pain with internal and external rotation of the hips bilaterally Neurovascularly intact Results Pertinent studies: MRI lumbar spine taken on 12/03/2018: Redemonstrated acute discitis/ osteomyelitis at L4-5 into the lesser degree L5-S1 with associated elongated epidural abscess centered at the L4-5 vertebral disc space creating moderate spinal canal stenosis and severe neural foraminal narrowing at L4-5 with nerve root impingement bilaterally; L1-2 central disc herniation and degenerative disc disease resulting in mild to severe left neural foraminal narrowing, moderate right neural foraminal narrowing, and mild central canal stenosis; multilevel severe multilevel degenerative disc disease and video degrees of neural foraminal narrowing and video degrees of spinal canal stenosis throughout the lumbar spine; overall bone marrow signal of the upper lumbar spine is within normal limits; markedly enlarged prostate gland partially visualized on localizer images only CT of the lumbar spine taken on 12/01/2018: Destructive changes level of L4-5 disc with evidence of paraspinal mass is consistent with acute and chronic discitis and phlegmon; L1-2 and L3-4 mild spinal canal stenosis PET scan CT of the skull to the thigh: Redemonstration findings compatible with discitis/osteomyelitis of L4-S1 with epidural abscess as seen on the MRI of the lumbar spine; hypermetabolic activity of the primary hepatocellular carcinoma with second hepatic metastatic focus containing air which is M may be biopsy change and should be correlated with recent biopsy; few periportal lymph nodes and right chest wall lymph nodes remain suspicious for metastatic disease despite their small size; markedly enlarged prostate gland measuring up to 8.4 cm; minimal homogenous uptake throughout the midthoracic spine favored on the basis of degenerative change however a thoracic MRI could assess for bone marrow replacement of metastasis; nonspecific uptake within the right thigh abductor musculature most likely related to muscular sprain/spasm or muscular usage during examination Liver biopsy ultrasound taken on 10/19/2018: Successful FNA biopsy right lobe traumatic lesion Liver ultrasound performed on 10/18/2018: Enlarged liver with 2 hypoechoic mass is suspicious for metastatic disease Lumbar MRI performed on 10/17/2018: L4-5 herniated nucleus pulposus extruded fragment and slight grade 1 spondylolisthesis resulting in central canal stenosis and bilateral neural foraminal stenosis; no obvious fracture or bony lesion; report states evidence of liver lesions 2 - Labs Labs: Abnormal Lab Results - Last 24 Hours (Table) 12/02/18 12/02/18 12/02/18 Range/Units 12:44 19:16 23:50 Hgb (13.0-17.5) gm/dL RDW (11.5-15.5) % APTT 91.8 H (22.0-30.0) sec BUN (9-20) mg/dL Glucose (74-99) mg/dL POC Glucose (mg/dL) 145 H (75-99) mg/dL Hemoglobin A1c 6.2 H (4.0-6.0) % Albumin (3.5-5.0) g/dL 12/03/18 12/03/18 12/03/18 Range/Units 01:35 05:49 06:39 Hgb (13.0-17.5) gm/dL RDW (11.5-15.5) % APTT 49.6 H (22.0-30.0) sec BUN (9-20) mg/dL Glucose (74-99) mg/dL POC Glucose (mg/dL) 170 H 160 H (75-99) mg/dL Hemoglobin A1c (4.0-6.0) % Albumin (3.5-5.0) g/dL 12/03/18 12/03/18 12/03/18 Range/Units 07:12 07:12 07:12 Hgb 12.9 L (13.0-17.5) gm/dL RDW 15.6 H (11.5-15.5) % APTT 41.7 H (22.0-30.0) sec BUN 22 H (9-20) mg/dL Glucose 161 H (74-99) mg/dL POC Glucose (mg/dL) (75-99) mg/dL Hemoglobin A1c (4.0-6.0) % Albumin (3.5-5.0) g/dL 12/03/18 12/03/18 12/03/18 Range/Units 09:00 11:02 17:06 Hgb (13.0-17.5) gm/dL RDW (11.5-15.5) % APTT (22.0-30.0) sec BUN (9-20) mg/dL Glucose (74-99) mg/dL POC Glucose (mg/dL) 128 H 186 H (75-99) mg/dL Hemoglobin A1c (4.0-6.0) % Albumin 3.3 L (3.5-5.0) g/dL Microbiology - Last 24 Hours (Table) 12/02/18 16:00 Urine Culture - Preliminary Urine,Voided H & H 12/02/18 12/03/18 Range/Units 11:31 07:12 Hgb 12.7 L 12.9 L (13.0-17.5) gm/dL Hct 40.0 40.2 (39.0-53.0) % Coagulation 12/02/18 Range/Units 12:44 INR 1.1 (<1.2) Result Diagrams: 12/03/18 07:12 12/03/18 07:12 Assessment and Plan Assessment: Assessment: L4-5 and L5-S1 bony destructive changes compatible with acute discitis/ osteomyelitis Lumbar epidural abscess L4-5 spinal canal stenosis and neural foraminal stenosis Intractable low back pain Right lower extremity radiculopathy Hepatocellular cancer Prostate cancer Inability to ambulate due to pain 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 (1) Discitis of lumbar region Current Visit: Yes Status: Acute Code(s): M46.46 - DISCITIS, UNSPECIFIED, LUMBAR REGION SNOMED Code(s): 253502046 (2) Lumbar stenosis Current Visit: Yes Status: Acute Code(s): M48.061 - SPINAL STENOSIS, LUMBAR REGION WITHOUT NEUROGENIC [place] SNOMED Code(s): 00467107 (3) Lumbar herniated disc Current Visit: Yes Status: Acute Code(s): M51.26 - OTHER INTERVERTEBRAL DISC DISPLACEMENT, LUMBAR REGION SNOMED Code(s): 110586815 (4) Epidural abscess Current Visit: Yes Status: Acute Code(s): G06.2 - EXTRADURAL AND SUBDURAL ABSCESS, UNSPECIFIED SNOMED Code(s): 42613164 (5) Hepatocellular carcinoma Current Visit: Yes Status: Acute Code(s): C22.0 - LIVER CELL CARCINOMA SNOMED Code(s): 614911898 (6) Intractable low back pain Current Visit: Yes Status: Acute Code(s): M54.5 - LOW BACK PAIN SNOMED Code(s): 73120847611670999 (7) Prostate cancer Current Visit: Yes Status: Acute Code(s): C61 - MALIGNANT NEOPLASM OF PROSTATE SNOMED Code(s): 702092818 (8) Inferior vena cava thromboembolism Current Visit: No Status: Acute Priority: High Code(s): I82.220 - ACUTE EMBOLISM AND THROMBOSIS OF INFERIOR VENA CAVA SNOMED Code(s): 434654041 Plan: Plan: 1. Since his discharge from the hospital in early October 2018, the patient's symptoms have significantly worsened since this past 12/01/2018. He has intractable back pain and inability to ambulate due to right lower extremity leg pain. Previous MRI of the lumbar spine performed on 10/17/2018 did not show evidence of bony destructive changes compatible with acute discitis or osteomyelitis which has been seen on recent imaging taken on CT, PET scan, and MRI imaging. MRI taken on 12/03/2018 also shows evidence of epidural abscess. Given his significant symptoms and significant finding on imaging, he would be a candidate for surgical intervention. The proposed surgical intervention would be an L4-5 laminectomy decompression with irrigation and debridement of epidural abscess. At this time patient like to discuss his treatment options greater detail with his family and decide which plan of care is best for them. If the patient would like to proceed forward with surgical intervention surgery could be performed as early as this Monday , 12/05/2017 or , 12/06/2017. If the patient plans to proceed forward with surgical intervention, we will plan to make him nothing by mouth status at midnight on 12/05/2017 or 12/06/2017 depending on his surgical day in anticipation for surgical intervention. Patient is also currently on heparin drip which will have to be held prior to surgical intervention. A prescription has also been written and provided to case management for an Exos LSO brace. Patient may wear this brace for comfort support during ambulation and increased activities. 2. Patient will continue be seen in exam by medicine, pain management and oncology 3. Patient currently waiting for consultation with infectious disease 4. We'll continue to follow patient closely Time with Patient: Greater than 30 <Clayton Kirby - Last Filed: 12/05/18 09:50> Physical Examination Osteopathic Statement: *. No significant issues noted on an osteopathic structural exam other than those noted in the History and Physical/Consult. Results - Labs Labs: Abnormal Lab Results - Last 24 Hours (Table) 12/04/18 12/04/18 12/04/18 Range/Units 10:59 16:53 17:12 Hgb (13.0-17.5) gm/dL Hct (39.0-53.0) % APTT 40.4 H (22.0-30.0) sec POC Glucose (mg/dL) 103 H 118 H (75-99) mg/dL 12/04/18 12/04/18 12/05/18 Range/Units 20:08 23:35 05:44 Hgb 11.8 L (13.0-17.5) gm/dL Hct 37.7 L (39.0-53.0) % APTT 66.7 H (22.0-30.0) sec POC Glucose (mg/dL) 124 H (75-99) mg/dL Microbiology - Last 24 Hours (Table) 12/02/18 16:00 Urine Culture - Final Urine,Voided Escherichia coli H & H 12/02/18 12/03/18 12/04/18 Range/Units 11:31 07:12 03:05 Hgb 12.7 L 12.9 L 11.4 L (13.0-17.5) gm/dL Hct 40.0 40.2 36.3 L (39.0-53.0) % 12/05/18 Range/Units 05:44 Hgb 11.8 L (13.0-17.5) gm/dL Hct 37.7 L (39.0-53.0) % Coagulation 12/02/18 Range/Units 12:44 INR 1.1 (<1.2) Result Diagrams: 12/05/18 05:44 12/04/18 03:05 Assessment and Plan Plan: The patient was seen and examined at bedside. He is complete by his and his daughter. We discussed the nature of his issues and he is found have a discitis with possible myelitis at L4 5. There is phlegmon and small abscess. He is not neurologically compromised. He appears to be neurologically intact. Infection is causing seen him pain for him and debility. He has been on long- term antibiotics per infectious seat disease and he is not clearance of the infection at the disc. There infection appears to be worsening and causing further erosion at the bony surface. With the abscess involved at the paraspinal space and the epidural space I think that his best course is to proceed with laminectomy decompression discectomy and irrigation and debridement and excisional debridement of the abscess at L4 5. We discussed this at length with him. I discussed the case with infectious disease as well as with hematology oncology. They're in favor him proceeding with surgical intervention as well to promote his healing and to allow further treatment for his liver issues. We discussed the risk, patient's alternatives and benefits of surgery with him including but not limited to risk of bleeding risk of infection risk of need for further surgery risk of decreased loss of motion further pain neurologic damage was all explained to him all of his questions were answered to best of our ability healing she can understand and he wishes to proceed with surgical intervention. We'll plan to proceed with surgery on Monday the .
[2018-12-03] MEDS: SODIUM CHLORIDE 0.9% 1,000 ML IV SCH (23:10)
[2018-12-04 00:09] LABS: Glucose,Whole Blood 145 mg/dL (75-99)
--- NOTE | 2018-12-04 00:09 | P.CONS ---
History of Present Illness - Reason for Consult Consult date: 12/03/18 - Chief Complaint Progressive back pain - History of Present Illness Very pleasant 83-year-old male is known to the infectious disease service because of his many bouts of very tract infection. The patient has a long-standing history of a very large prostate with difficulties with some urinary retention resulting urinary tract infection. Recent infection has been with E. coli with no oral options and is receiving a couple of courses of outpatient intravenous antibiotic therapy and has done well. In September he was hospitalized with some back pain evaluations were performed showing evidence of degenerative disease and with local care and treatment of urinary infection he improved. 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 Percutaneous biopsy at this facility was performed and was nondiagnostic. He was seen at [facility] also with nondiagnostic testing. He eventually was seen at [facility] where biopsy was successful of the liver which reveal evidence of adenocarcinoma , and there is also evidence of enlarged lymph nodes in the pelvis which were diagnostic of prostate carcinoma. The patient was receiving anticoagulation therapy and was in the midst of workup for his underlying cancers, outpatient PET scan had just been performed. If this workup was occurring the patient was having increasing amounts of back pain on the day of admission was no longer able to ambulate because his pain was so severe. This lady was brought into the hospital and workup has been initiated and he has now been seen by orthopedic spine in the infectious diseases consultation was initiated. The patient is now had the follow-up MRI reveals evidence of the destruction of L4-L5 which is new compared to the September 2018 MRI. With concerns to discitis and epidural abscess the consult was requested. Review of Systems 83-year-old male complains of severe pain in his back that radiates to his right leg which has made him unable to ambulate due to severe pain HEENT:Denies headache or acute visual change. Denies sinus or mouth discomforts. Denies neck stiffness or pain. Denies significant oral cavity pain. Denies difficulty on swallowing. Lungs: Denies significant shortness of breath, cough, sputum production, or hemoptysis. Cardiovascular: Denies significant shortness of breath, chest pain, chest wall pain, orthopnea, dyspnea on exertion, syncope Gastrointestinal:Denies nausea, vomiting, diarrhea, constipation, hematemesis, melena, hematochezia. No no significant change of bowel habit noticed. Musculoskeletal: Severe back pain as per the HPI Skin: Denies new rash or lesions. No new ulcers or wounds are related.. Neuro: Denies headache or visual change. Denies any new onset weakness or difficulty with ambulation. Denies falls or seizures. Psychiatric:Denies anxiety or depression. Endocrine: Complains of fatigue weight is been stable Denies current urinary symptoms but urine has been cloudy Past Medical History Past Medical History: Cancer, GERD/Reflux, Hyperlipidemia, Hypertension, Prostate Disorder, Thyroid Disorder Additional Past Medical History / Comment(s): SKIN CANCER, prostate & liver cancer. CURRENT UTI History of Any Multi-Drug Resistant Organisms: Other MDRO Year Discovered:: 09/29/2018 MDRO Source:: UTI Past Surgical History: Adenoidectomy, Hernia Repair, Joint Replacement, Prostate Surgery, Tonsillectomy Additional Past Surgical History / Comment(s): PARATHYROID SX. ESOPHAGEAL SX FOR ACHALASIA. VARICOSE VEIN SX. BILAT CATARAT SX. COLONOSCOPY Past Anesthesia/Blood Transfusion Reactions: No Reported Reaction Past Psychological History: No Psychological Hx Reported Additional Psychological History / Comment(s): etired lives with the . Adult daughter is visiting. No tobacco use. No experience. No extensive travel. Smoking Status: Never smoker Past Alcohol Use History: Rare Past Drug Use History: None Reported - Past Family History Mother Family Medical History: Cancer Additional Family Medical History / Comment(s): COLON Medications and Allergies Home Medications and Allergies Comment(s): Current Medications Acetaminophen (Tylenol Tab) 650 mg PO Q6HR PRN PRN Reason: Fever and/ or Pain Atenolol (Tenormin) 25 mg PO DAILY [facility] Last Admin: 12/03/18 08:51 Dose: 25 mg Cyclobenzaprine HCl (Flexeril) 5 mg PO TID [facility] Last Admin: 12/03/18 20:54 Dose: 5 mg Heparin Sodium (Porcine) (Heparin) 0 unit IV PER PROTOCOL PRN; Protocol PRN Reason: Low PTT Last Admin: 12/03/18 14:23 Dose: 3,240 unit Hydromorphone HCl (Dilaudid) 0.5 mg IVP Q3HR PRN PRN Reason: Severe Pain Last Admin: 12/03/18 18:39 Dose: 0.5 mg Sodium Chloride (Saline 0.9%) 1,000 mls @ 20 mls/hr IV .Q24H [facility] Last Admin: 12/03/18 23:10 Dose: 20 mls/hr Heparin Sodium/Sodium Chloride (25,000 unit/ Sodium Chloride) 250 mls @ 14.58 mls/hr IV .Q17H9M [facility]; Protocol Last Admin: 12/03/18 23:10 Dose: 21.4 units/kg/hr, 17.33 mls/hr Cefepime HCl 1 gm/ Sodium (Chloride) 50 mls @ 100 mls/hr IVPB Q8HR [facility] Last Admin: 12/03/18 23:12 Dose: 100 mls/hr Vancomycin HCl 1,500 mg/ (Sodium Chloride) 250 mls @ 125 mls/hr IVPB Q12H [facility] Ketorolac Tromethamine (Toradol) 15 mg IVP Q6HR PRN PRN Reason: Mild to Moderate Pain Stop: 12/06/18 11:52 Last Admin: 12/03/18 20:54 Dose: 15 mg Levothyroxine Sodium (Synthroid) 100 mcg PO 0630 [facility] Last Admin: 12/03/18 04:40 Dose: 100 mcg Naloxone HCl (Narcan) 0.2 mg IV Q2M PRN PRN Reason: Opioid Reversal Oxycodone/Acetaminophen (Percocet 7.5-325) 1 each PO Q6HR PRN PRN Reason: Pain Last Admin: 12/03/18 17:06 Dose: 1 each Pantoprazole Sodium (Protonix) 40 mg PO AC-BRKFST [facility] Last Admin: 12/03/18 08:52 Dose: 40 mg Polyethylene Glycol (Miralax) 17 gm PO HS PRN PRN Reason: Constipation Senna (Senokot) 8.6 mg PO BID [facility] Last Admin: 12/03/18 20:54 Dose: 8.6 mg Tamsulosin HCl (Flomax) 0.4 mg PO DAILY [facility] Last Admin: 12/03/18 08:52 Dose: 0.4 mg Home Medications Medication Instructions Recorded Confirmed Type Atenolol [Tenormin] 25 mg PO DAILY 01/09/18 12/02/18 History Levothyroxine Sodium [Synthroid] 100 mcg PO DAILY 01/09/18 12/02/18 History Pantoprazole Sodium [Protonix] 40 mg PO DAILY 01/09/18 12/02/18 History Tamsulosin HCl [Flomax] 0.4 mg PO DAILY 01/09/18 12/02/18 History Triamterene-Hctz 37.5-25Mg 1 cap PO DAILY 01/09/18 12/02/18 History [Dyazide 37.5-25 Capsule] amLODIPine [Norvasc] 10 mg PO DAILY 01/09/18 12/02/18 History Acetaminophen Tab [Tylenol] 650 mg PO Q6HR PRN tab 10/25/18 12/02/18 Rx HYDROcodone/APAP 5-325MG [[place] 1 each PO Q4HR PRN tab 10/25/18 12/02/18 Rx 5-325] Cholecalciferol [Vitamin D3] 1,000 unit PO DAILY 12/02/18 12/02/18 History Rivaroxaban [Xarelto] 20 mg PO DAILY 12/02/18 12/02/18 History Sennosides-Docusate Sodium 1 each PO BID PRN 12/02/18 12/02/18 History [Senokot-S] Allergies Allergy/AdvReac Type Severity Reaction Status Date / Time No Known Allergies Allergy Verified 12/02/18 08:07 Physical Exam Vitals: Vital Signs Temp Pulse Pulse Resp BP Pulse Ox 12/03/18 23:38 16 12/03/18 21:00 97.5 F L 67 16 127/65 95 12/03/18 11:30 97.4 F L 67 16 114/64 96 12/03/18 08:00 64 12/03/18 04:50 97 F L 64 16 105/61 95 Intake and Output 12/03/18 12/03/18 12/04/18 14:59 22:59 06:59 Intake Total 121.25 584.47 34.28 Output Total 450 Balance 121.25 134.47 34.28 Intake: Intake, IV Titration 121.25 344.47 34.28 Amount Heparin Sod,Pork in 0.45% 121.25 94.47 34.28 NaCl 25,000 unit In 0.45 % NaCl 1 250ml.bag @ 18 UNITS/KG/HR 14.58 mls/hr IV .Q17H9M [facility] Rx#: [id number] Vancomycin 1,500 mg In 250 Sodium Chloride 0.9% 250 ml @ 125 mls/hr IVPB Q12H [facility] Rx#:[id number] Oral 240 Output: Urine 450 Other: Voiding Method Urinal # Voids 1 1 Pleasant 83-year-old male with pain medications is able to speak without difficulties and since pain is more controlled is able to smile. HEENT: Anicteric conjunctiva are pink and moist nasal mucosa grossly intact without significant lesions, there is no thrush. Neck: The neck is supple without significant lymphadenopathy or thyromegaly. Lungs: Good bilateral air entry without significant crackles or wheezing. There is no significant bronchial sounds. There is no egophony or dullness. Heart: Regular rate and rhythm with an audible S1-S2, no S3 no S4. There is no significant murmur click or rub, PMI was nondisplaced. Abdomen: Minimally obese Positive bowel sounds soft and nontender without palpable masses or organomegaly. There was no guarding or rebound. Extremities: The upper extremities have excellent pulses they are symmetric, no significant petechiae or telangiectasia. No splinter hemorrhages were noted. Lower extremities without edema. Any attempt for manipulation of the lower extremities and back results in severe pain Neuro: Awake alert oriented to person place and time. There are no acute new gross focal sensory motor deficits. The patient has equal strength 5+ the bilateral lower extremities at the knee distally, attempts to evaluate strength into the hips and thighs is struck with severe pain. Upper extremity is 5+ and symmetric Results CBC & Chem 7: 12/03/18 07:12 12/03/18 07:12 Labs: Abnormal Lab Results - Last 24 Hours (Table) 12/02/18 12/02/18 12/03/18 Range/Units 12:44 23:50 01:35 Hgb (13.0-17.5) gm/dL RDW (11.5-15.5) % APTT 49.6 H (22.0-30.0) sec BUN (9-20) mg/dL Glucose (74-99) mg/dL POC Glucose (mg/dL) 145 H (75-99) mg/dL Hemoglobin A1c 6.2 H (4.0-6.0) % Albumin (3.5-5.0) g/dL 12/03/18 12/03/18 12/03/18 Range/Units 05:49 06:39 07:12 Hgb 12.9 L (13.0-17.5) gm/dL RDW 15.6 H (11.5-15.5) % APTT (22.0-30.0) sec BUN (9-20) mg/dL Glucose (74-99) mg/dL POC Glucose (mg/dL) 170 H 160 H (75-99) mg/dL Hemoglobin A1c (4.0-6.0) % Albumin (3.5-5.0) g/dL 12/03/18 12/03/18 12/03/18 Range/Units 07:12 07:12 09:00 Hgb (13.0-17.5) gm/dL RDW (11.5-15.5) % APTT 41.7 H (22.0-30.0) sec BUN 22 H (9-20) mg/dL Glucose 161 H (74-99) mg/dL POC Glucose (mg/dL) (75-99) mg/dL Hemoglobin A1c (4.0-6.0) % Albumin 3.3 L (3.5-5.0) g/dL 12/03/18 12/03/18 Range/Units 11:02 17:06 Hgb (13.0-17.5) gm/dL RDW (11.5-15.5) % APTT (22.0-30.0) sec BUN (9-20) mg/dL Glucose (74-99) mg/dL POC Glucose (mg/dL) 128 H 186 H (75-99) mg/dL Hemoglobin A1c (4.0-6.0) % Albumin (3.5-5.0) g/dL Microbiology - Last 24 Hours (Table) 12/02/18 16:00 Urine Culture - Preliminary Urine,Voided Gram Neg Bacilli Laboratory Results WBC 8.1 k/uL (3.8-10.6) 12/03/18 07:12 RBC 4.56 m/uL (4.30-5.90) 12/03/18 07:12 Hgb 12.9 gm/dL (13.0-17.5) L 12/03/18 07:12 Hct 40.2 % (39.0-53.0) 12/03/18 07:12 MCV 88.1 fL (80.0-100.0) 12/03/18 07:12 MCH 28.4 pg (25.0-35.0) 12/03/18 07:12 MCHC 32.2 g/dL (31.0-37.0) 12/03/18 07:12 RDW 15.6 % (11.5-15.5) H 12/03/18 07:12 Plt Count 264 k/uL (150-450) 12/03/18 07:12 Neutrophils % 83 % 12/03/18 07:12 Lymphocytes % 14 % 12/03/18 07:12 Monocytes % 2 % 12/03/18 07:12 Eosinophils % 0 % 12/03/18 07:12 Basophils % 0 % 12/03/18 07:12 Neutrophils # 6.7 k/uL (1.3-7.7) 12/03/18 07:12 Lymphocytes # 1.1 k/uL (1.0-4.8) 12/03/18 07:12 Monocytes # 0.1 k/uL (0-1.0) 12/03/18 07:12 Eosinophils # 0.0 k/uL (0-0.7) 12/03/18 07:12 Basophils # 0.0 k/uL (0-0.2) 12/03/18 07:12 PT 11.6 sec (9.0-12.0) 12/02/18 12:44 INR 1.1 (<1.2) 12/02/18 12:44 APTT 27.7 sec (22.0-30.0) 12/03/18 18:42 Sodium 141 mmol/L (137-145) 12/03/18 07:12 Potassium 4.9 mmol/L (3.5-5.1) 12/03/18 07:12 Chloride 106 mmol/L (98-107) 12/03/18 07:12 Carbon Dioxide 30 mmol/L (22-30) 12/03/18 07:12 Anion Gap 5 mmol/L 12/03/18 07:12 BUN 22 mg/dL (9-20) H 12/03/18 07:12 Creatinine 0.74 mg/dL (0.66-1.25) 12/03/18 07:12 Est GFR (CKD-EPI)AfAm >90 (>60 ml/min/1.73 sqM) 12/03/18 07:12 Est GFR (CKD-EPI)NonAf 85 (>60 ml/min/1.73 sqM) 12/03/18 07:12 Glucose 161 mg/dL (74-99) H 12/03/18 07:12 POC Glucose (mg/dL) 186 mg/dL (75-99) H 12/03/18 17:06 POC Glu Risk Officer Candida Marroquin 12/03/18 17:[address] Glu mg/dL 131 12/02/18 12:44 Hemoglobin A1c 6.2 % (4.0-6.0) H 12/02/18 12:44 Calcium 10.2 mg/dL (8.4-10.2) 12/03/18 07:12 Total Bilirubin 0.7 mg/dL (0.2-1.3) 12/03/18 09:00 Conjugated Bilirubin 0.0 mg/dL (0.0-0.3) 12/03/18 09:00 Unconjugated Bilirubin 0.5 mg/dL (0.0-1.1) 12/03/18 09:00 Delta Bilirubin 0.2 mg/dL (0.0-0.2) 12/03/18 09:00 AST 21 U/L (17-59) 12/03/18 09:00 ALT 34 U/L (21-72) 12/03/18 09:00 Alkaline Phosphatase 94 U/L (38-126) 12/03/18 09:00 Total Protein 6.7 g/dL (6.3-8.2) 12/03/18 09:00 Albumin 3.3 g/dL (3.5-5.0) L 12/03/18 09:00 Tumor Marker AFP <2.5 ng/mL (0.0-7.9) 12/03/18 09:00 Urine Color Yellow 12/02/18 16:00 Urine Appearance Cloudy (Clear) 12/02/18 16:00 Urine pH 6.0 (5.0-8.0) 12/02/18 16:00 Ur Specific [place] 1.015 (1.001-1.035) 12/02/18 16:00 Urine Protein 1+ (Negative) H 12/02/18 16:00 Urine Glucose (UA) Negative (Negative) 12/02/18 16:00 Urine Ketones Negative (Negative) 12/02/18 16:00 Urine Blood Moderate (Negative) H 12/02/18 16:00 Urine Nitrite Positive (Negative) 12/02/18 16:00 Urine Bilirubin Negative (Negative) 12/02/18 16:00 Urine Urobilinogen <2.0 mg/dL (<2.0) 12/02/18 16:00 Ur Leukocyte Esterase Large (Negative) H 12/02/18 16:00 Urine RBC 28 /hpf (0-5) H 12/02/18 16:00 Urine WBC 155 /hpf (0-5) H 12/02/18 16:00 Urine WBC Clumps Few /hpf (None) H 12/02/18 16:00 Urine Bacteria Moderate /hpf (None) H 12/02/18 16:00 Urine Mucus Few /hpf (None) H 12/02/18 16:00 Microbiology 12/02/18 16:00 Urine,Voided Urine Culture - Preliminary Gram Neg Bacilli Comments: The patient has multiple imaging studies which are reviewed personally in the radiology suite with the radiologist. The MRI from September 2018 shows evidence of degenerative joint disease but no evidence of any disc destruction. The patient has the recent outpatient CT PET perfusion shows evidence of the significant changes at the L4-L5 bodies. The patient does have evidence also of uptake within the liver and in the pelvis. The MRI of November 2018 shows evidence of the acute changes since the prior MRI with the distinct obstruction of L4-L5 with the evidence of a fluid density in the intravertebral space appears to be an epidural abscess. Assessment and Plan (1) Chronic back pain Current Visit: Yes Status: Acute Code(s): M54.9 - DORSALGIA, UNSPECIFIED; G89.29 - OTHER CHRONIC PAIN SNOMED Code(s): 832890968 (2) Discitis of lumbar region Current Visit: Yes Status: Acute Code(s): M46.46 - DISCITIS, UNSPECIFIED, LUMBAR REGION SNOMED Code(s): 979424277 (3) E. coli urinary tract infection Narrative/Plan: 83-year-old male known to the infectious disease service for his audible bouts of urinary tract infections with multidrug resistant Escherichia coli who now presents to hospital with irretractable back pain. He hashad troubles with back pain in the past and has had workup performed. With the inferior vena cava clot workup then was performed for an underlying malignancy and it does appear that there is evidence of the hepatocellular carcinoma the liver as well as of the prostate carcinoma as noted by the lymph nodes in the pelvis. 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 Patient however now is developed the progressive and severe back pain to the point in time where he is no longer able to ambulate. The MRI reveals evidence of the extensive destruction to L4-L5 with the evidence of fluid in the intervertebral space consistent with infection as well as a small epidural abscess. The patient has been seen by orthopedic spine. The patient has significant physical symptoms and significant other pathology. I agree at this point in time that a surgical intervention would be of great utility in that it would give likely relief of pain by stabilization of the spine. It also give deep tissue cultures and pathology to further evaluate this lesion. With his multiple urinary tract infections it is possible that this could even be an E. coli infection within the space. The possibility of malignancy in this area is not completely excluded the possibility of malignancy and secondary infection is also of concern. Then gentamicin also added at this time pending further information given the evidence of the epidural abscess.Await further culture results and surgical data to further define the overall course of therapy. Current Visit: Yes Status: Acute Code(s): N39.0 - URINARY TRACT INFECTION, SITE NOT SPECIFIED; B96.20 - UNSP ESCHERICHIA COLI THE CAUSE OF DISEASES CLASSD [facility] SNOMED Code(s): 185742143 (4) Prostate cancer Current Visit: Yes Status: Acute Code(s): C61 - MALIGNANT NEOPLASM OF PROSTATE SNOMED Code(s): 213622434 (5) Hepatocellular carcinoma Current Visit: Yes Status: Acute Code(s): C22.0 - LIVER CELL CARCINOMA SNOMED Code(s): 163017653
[2018-12-04] MEDS: oxyCODONE-APAP 7.5-325MG 1 EACH TAB PO PRN ×4 (00:22→21:28)
[2018-12-04 03:39] LABS: Basophils % (A) 0 %; Eosinophils % (A) 0 %; HCT 36.3 % (39.0-53.0); HGB 11.4 gm/dL (13.0-17.5); Lymphocytes # (A) 1.3 k/uL (1.0-4.8); Lymphocytes % (A) 11 %; MCH 27.4 pg (25.0-35.0); MCHC 31.4 g/dL (31.0-37.0); MCV 87.2 fL (80.0-100.0); Mean Platelet Volume 6.3; Monocytes # (A) 0.4 k/uL (0-1.0); Monocytes % (A) 3 %; Neutrophils # (A) 10.1 k/uL (1.3-7.7); Neutrophils % (A) 85 %; Platelet Count 283 k/uL (150-450); RBC 4.16 m/uL (4.30-5.90); RDW 15.5 % (11.5-15.5); WBC 11.9 k/uL (3.8-10.6)
[2018-12-04 04:01] LABS: ALT 25 U/L (21-72); AST 17 U/L (17-59); Albumin 2.9 g/dL (3.5-5.0); Alkaline Phosphatase 81 U/L (38-126); Anion Gap 9 mmol/L; Blood Urea Nitrogen 26 mg/dL (9-20); Calcium 9.7 mg/dL (8.4-10.2); Carbon Dioxide 25 mmol/L (22-30); Chloride 107 mmol/L (98-107); Glucose 128 mg/dL (74-99); Potassium 4.2 mmol/L (3.5-5.1); Sodium 141 mmol/L (137-145); Total Bilirubin 0.5 mg/dL (0.2-1.3); Total Protein 6.1 g/dL (6.3-8.2)
[2018-12-04] MEDS ORDERED: HEPARIN SODIUM,PORCINE 5,000 UNIT/ML 1 ML VIAL IV STA (04:20)
[2018-12-04] MEDS: LEVOTHYROXINE 100 MCG TAB PO SCH (05:59)
[2018-12-04] MEDS: SODIUM CHLORIDE 0.9% 1,000 ML IV SCH (06:00)
[2018-12-04] MEDS: VANCOMYCIN 1,500 MG in SODIUM CHLORIDE 0.9% 250 ML IVPB SCH ×2 (06:00→18:22)
[2018-12-04 07:04] LABS: Glucose,Whole Blood 116 mg/dL (75-99)
[2018-12-04] MEDS: PANTOPRAZOLE 40 MG TABLET PO SCH (07:36)
[2018-12-04] MEDS: CYCLOBENZAPRINE 5 MG TAB PO SCH ×3 (07:36→21:32)
[2018-12-04] MEDS: ATENOLOL 25 MG TAB PO SCH (07:36)
[2018-12-04] MEDS: SENNOSIDES 8.6 MG TAB PO SCH ×2 (07:37→21:31)
[2018-12-04] MEDS: TAMSULOSIN 0.4 MG CAP.ER.24H PO SCH (07:37)
--- NOTE | 2018-12-04 08:49 | P.PN ---
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 Since being seen and examined yesterday his symptoms have not had significant change. He was previously seen and examined in the hospital in September 2018. Since that time he has had a significant exacerbation of back pain. He states his back pain is better controlled while lying flat in bed. Currently his pain is severe down the right lower extremity with increased ambulation and activities. He states following previous discharge from the hospital he felt he was doing fairly well until this past 12/01/2018. Prior to that time he is able to ambulate with the assistance of a walker. He states now due to his pain he is unable to ambulate. He is unable to specifically describe his lower extremity pain but states the entire leg is painful. He denies specific weakness in bilateral lower extremities. He is not currently experiencing any significant left lower extremity radiculopathy. In his last visit imaging showed changes within the liver and he was waiting for liver biopsy after ultrasound results showed the liver was enlarged with 2 hypoechoic mass suspicious for metastatic disease. He was found to have hepatocellular carcinoma. Given his severe pain in his lumbar spine, a PET scan was performed on 12/01/2018. A CT of the lumbar spine has also been performed as well as an MRI of the lumbar spine. On imaging he was found to have bony destructive changes at L4-5 and L5-S1 with evidence of paraspinal mass consistent with acute discitis/osteomyelitis along with epidural abscess. These findings were not evident on previous imaging taken at his last admission in September 2018. Patient has continued to follow with Dr. Singletary in oncology. His symptoms have progressed as compared to his previous admittance to the hospital. Patient does have a history of prostate cancer. Patient states he was seen and examined by pain management today. He was also seen and examined by Dr. Acosta in infectious disease. He continues to receive antibiotic treatment with vancomycin and cefepime. Yesterday a prescription for an Exos LSO brace was written and provided to case management. This brace has not been delivered yet this morning. Patient states after further discussion with his family that have not yet come the decision on whether proceed for surgical intervention of his lumbar spine. They're planning to have a decision today. He states again this morning there was trying to balance with treatment options provide him the most benefit in terms of cancer treatment versus treatment of his lumbar spine. He is looking to have some improvement in the quality of his life. 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 Patient denies any new accidents or injuries since last being seen and examined. Objective - Vital Signs Vital signs: Vital Signs Temp 97.5 F L 12/04/18 05:00 Pulse 60 12/04/18 05:00 Resp 18 12/04/18 05:00 BP 120/66 12/04/18 05:00 Pulse Ox 92 L 12/04/18 05:00 Intake & Output 12/03/18 12/04/18 12/04/18 18:59 06:59 18:59 Intake Total 121.25 866.555 Output Total 450 Balance -328.75 866.555 Intake: Intake, IV Titration 121.25 626.555 Amount Heparin Sod,Pork in 0.45% 121.25 216.555 NaCl 25,000 unit In 0.45 % NaCl 1 250ml.bag @ 18 UNITS/KG/HR 14.58 mls/hr IV .Q17H9M DIPESH Rx#: [id number] Sodium Chloride 0.9% 1, 160 000 ml @ 20 mls/hr IV . Q24H DIPESH Rx#:[id number] Vancomycin 1,500 mg In 250 Sodium Chloride 0.9% 250 ml @ 125 mls/hr IVPB Q12H DIPESH Rx#:[id number] Oral 240 Output: Urine 450 Other: Voiding Method Urinal Urinal # Voids 1 - Exam Physical exam: Patient is awake, alert, and oriented 3 Vital signs stable Good chest excursion with deep inspiration and expiration Patient is currently lying comfortably in bed Dorsiflexion, plantarflexion, and extensor hallucis longus positive sustained bilaterally Lower extremity strength 5/5 bilaterally Patient is able to lift legs independently in bed without but movements are somewhat slow No signs or symptoms of DVT; no calf pain No pain with internal and external rotation of the hips bilaterally Neurovascularly intact - Labs CBC & Chem 7: 12/04/18 03:05 12/04/18 03:05 Labs: Abnormal Lab Results - Last 24 Hours (Table) 12/02/18 12/03/18 12/03/18 Range/Units 12:44 09:00 11:02 WBC (3.8-10.6) k/uL RBC (4.30-5.90) m/uL Hgb (13.0-17.5) gm/dL Hct (39.0-53.0) % Neutrophils # (1.3-7.7) k/uL BUN (9-20) mg/dL Glucose (74-99) mg/dL POC Glucose (mg/dL) 128 H (75-99) mg/dL Hemoglobin A1c 6.2 H (4.0-6.0) % Total Protein (6.3-8.2) g/dL Albumin 3.3 L (3.5-5.0) g/dL 12/03/18 12/04/18 12/04/18 Range/Units 17:06 00:08 03:05 WBC 11.9 H (3.8-10.6) k/uL RBC 4.16 L (4.30-5.90) m/uL Hgb 11.4 L (13.0-17.5) gm/dL Hct 36.3 L (39.0-53.0) % Neutrophils # 10.1 H (1.3-7.7) k/uL BUN (9-20) mg/dL Glucose (74-99) mg/dL POC Glucose (mg/dL) 186 H 145 H (75-99) mg/dL Hemoglobin A1c (4.0-6.0) % Total Protein (6.3-8.2) g/dL Albumin (3.5-5.0) g/dL 12/04/18 12/04/18 Range/Units 03:05 07:02 WBC (3.8-10.6) k/uL RBC (4.30-5.90) m/uL Hgb (13.0-17.5) gm/dL Hct (39.0-53.0) % Neutrophils # (1.3-7.7) k/uL BUN 26 H (9-20) mg/dL Glucose 128 H (74-99) mg/dL POC Glucose (mg/dL) 116 H (75-99) mg/dL Hemoglobin A1c (4.0-6.0) % Total Protein 6.1 L (6.3-8.2) g/dL Albumin 2.9 L (3.5-5.0) g/dL Microbiology - Last 24 Hours (Table) 12/02/18 16:00 Urine Culture - Preliminary Urine,Voided Gram Neg Bacilli - Imaging and Cardiology Pertinent studies: MRI lumbar spine taken on 12/03/2018: Redemonstrated acute discitis/ osteomyelitis at L4-5 into the lesser degree L5-S1 with associated elongated epidural abscess centered at the L4-5 vertebral disc space creating moderate spinal canal stenosis and severe neural foraminal narrowing at L4-5 with nerve root impingement bilaterally; L1-2 central disc herniation and degenerative disc disease resulting in mild to severe left neural foraminal narrowing, moderate right neural foraminal narrowing, and mild central canal stenosis; multilevel severe multilevel degenerative disc disease and video degrees of neural foraminal narrowing and video degrees of spinal canal stenosis throughout the lumbar spine; overall bone marrow signal of the upper lumbar spine is within normal limits; markedly enlarged prostate gland partially visualized on localizer images only CT of the lumbar spine taken on 12/01/2018: Destructive changes level of L4-5 disc with evidence of paraspinal mass is consistent with acute and chronic discitis and phlegmon; L1-2 and L3-4 mild spinal canal stenosis PET scan CT of the skull to the thigh: Redemonstration findings compatible with discitis/osteomyelitis of L4-S1 with epidural abscess as seen on the MRI of the lumbar spine; hypermetabolic activity of the primary hepatocellular carcinoma with second hepatic metastatic focus containing air which is M may be biopsy change and should be correlated with recent biopsy; few periportal lymph nodes and right chest wall lymph nodes remain suspicious for metastatic disease despite their small size; markedly enlarged prostate gland measuring up to 8.4 cm; minimal homogenous uptake throughout the midthoracic spine favored on the basis of degenerative change however a thoracic MRI could assess for bone marrow replacement of metastasis; nonspecific uptake within the right thigh abductor musculature most likely related to muscular sprain/spasm or muscular usage during examination Liver biopsy ultrasound taken on 10/19/2018: Successful FNA biopsy right lobe traumatic lesion Liver ultrasound performed on 10/18/2018: Enlarged liver with 2 hypoechoic mass is suspicious for metastatic disease Lumbar MRI performed on 10/17/2018: L4-5 herniated nucleus pulposus extruded fragment and slight grade 1 spondylolisthesis resulting in central canal stenosis and bilateral neural foraminal stenosis; no obvious fracture or bony lesion; report states evidence of liver lesions 2 Assessment and Plan Assessment: Assessment: L4-5 and L5-S1 bony destructive changes compatible with acute discitis/ osteomyelitis Lumbar epidural abscess L4-5 spinal canal stenosis and neural foraminal stenosis Intractable low back pain Right lower extremity radiculopathy Hepatocellular cancer Prostate cancer Inability to ambulate due to pain 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 (1) Discitis of lumbar region Current Visit: Yes Status: Acute Code(s): M46.46 - DISCITIS, UNSPECIFIED, LUMBAR REGION SNOMED Code(s): 553287705 (2) Lumbar stenosis Current Visit: Yes Status: Acute Code(s): M48.061 - SPINAL STENOSIS, LUMBAR REGION WITHOUT NEUROGENIC [place] SNOMED Code(s): 76627388 (3) Lumbar herniated disc Current Visit: Yes Status: Acute Code(s): M51.26 - OTHER INTERVERTEBRAL DISC DISPLACEMENT, LUMBAR REGION SNOMED Code(s): 231712383 (4) Epidural abscess Current Visit: Yes Status: Acute Code(s): G06.2 - EXTRADURAL AND SUBDURAL ABSCESS, UNSPECIFIED SNOMED Code(s): 41908372 (5) Hepatocellular carcinoma Current Visit: Yes Status: Acute Code(s): C22.0 - LIVER CELL CARCINOMA SNOMED Code(s): 629623977 (6) Intractable low back pain Current Visit: Yes Status: Acute Code(s): M54.5 - LOW BACK PAIN SNOMED Code(s): 59697387615968382 (7) Prostate cancer Current Visit: Yes Status: Acute Code(s): C61 - MALIGNANT NEOPLASM OF PROSTATE SNOMED Code(s): 269342461 (8) Inferior vena cava thromboembolism Current Visit: No Status: Acute Priority: High Code(s): I82.220 - ACUTE EMBOLISM AND THROMBOSIS OF INFERIOR VENA CAVA SNOMED Code(s): 148786910 Plan: Plan: 1. Since his discharge from the hospital in early October 2018, the patient's symptoms have significantly worsened since this past 12/01/2018. He has intractable back pain and inability to ambulate due to right lower extremity leg pain. Previous MRI of the lumbar spine performed on 10/17/2018 did not show evidence of bony destructive changes compatible with acute discitis or osteomyelitis which has been seen on recent imaging taken on CT, PET scan, and MRI imaging. MRI taken on 12/03/2018 also shows evidence of epidural abscess. Given his significant symptoms and significant finding on imaging, he would be a candidate for surgical intervention. The proposed surgical intervention would be an L4-5 laminectomy decompression with irrigation and debridement of epidural abscess. At this time patient states this morning he would like to continue talking with his family before making a final decision in terms of surgical intervention in his lumbar spine and states he'll plan to make this decision today. He states they have been discussing the balance of treatment in regards to his cancer versus treatment for his lumbar spine in regards to which treatments would help provide the most benefit. If the patient would like to proceed forward with surgical intervention surgery could be performed as early as this 12/05/2017 or , 12/06/2017. If the patient plans to proceed forward with surgical intervention, we will plan to make him nothing by mouth status at midnight on or 12/06/2017 depending on his surgical day in anticipation for surgical intervention. Patient is also currently on heparin drip which will have to be held prior to surgical intervention. A prescription was previously written and provided to case management for an Exos LSO brace. Patient may wear this brace for comfort support during ambulation and increased activities. 2. Patient will continue be seen in exam by medicine, pain management, infectious disease and oncology for his significant medical diagnoses 3. Continue pain control medication as prescribed 4. Continue antibiotic treatment with vancomycin and cefepime as prescribed 5. We'll continue to follow patient closely Time with Patient: Less than 30
[2018-12-04] MEDS: CEFEPIME 1 GM in SODIUM CHLORIDE 0.9% 50 ML IVPB SCH ×3 (09:14→23:53)
--- NOTE | 2018-12-04 10:38 | P.PN ---
Subjective Progress Note Date: 12/03/18 Progress note being dictated for Dr. Pickering Interval History:83-year-old pleasant gentleman with history of prostate cancer as well as a hepatocellular carcinoma given comments of severe back pain patient had a recent MRI and PET scan patient back pain is uncontrollable no weakness no saddle anesthesia no but does have radicular symptoms radiating to both the hip both the hips and thighs. And, denied any nausea vomiting. Denied any fever chills. She did a lumbar spine CT which showed destructive changes in L4-L5 within evidence of paraspinal mass with evidence of acute and chronic discitis and possible phlegmon and mild spinal stenosis at L1 to L3 4. Patient was started on steroids anti-inflammatories and pain medications. I will call her in consult pain management and a spinal surgeon. 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 We'll Allsop an MRI of the lumbar spine. Patient does have extensive back history from his recent past because of his prostate cancer found to have discitis recently although there is a paraspinal mass or phlegmon is new. There is no evidence of port infection at this time I'll obtain a CBC basic metabolic profile. Patient will not be started on IV antibiotics but infectious causes are definitely in the differential. is unable to ablate because of severe pain in the back 12/03/17 patient has just returned from lumbar spine MRI this morning. States back pain controlled at rest, but significant pain with movement. Generalized equal weakness of bilateral lower extremities. Pain management, orthopedic surgery consulted with recommendations pending. Maintained on steroids, blood sugars controlled. Afebrile, normal WBC. Urine culture pending. Continues on IV antibiotics, heparin drip. ID consult in place. Denies chest pain, palpitations or shortness of breath. Objective - Vital Signs Vital signs: Vital Signs Temp 97.5 F L 12/04/18 05:00 Pulse 60 12/04/18 05:00 Resp 18 12/04/18 05:00 BP 120/66 12/04/18 05:00 Pulse Ox 92 L 12/04/18 05:00 Intake & Output 12/03/18 12/04/18 12/04/18 18:59 06:59 18:59 Intake Total 121.25 866.555 Output Total 450 Balance -328.75 866.555 Intake: Intake, IV Titration 121.25 626.555 Amount Heparin Sod,Pork in 0.45% 121.25 216.555 NaCl 25,000 unit In 0.45 % NaCl 1 250ml.bag @ 18 UNITS/KG/HR 14.58 mls/hr IV .Q17H9M DIPESH Rx#: [id number] Sodium Chloride 0.9% 1, 160 000 ml @ 20 mls/hr IV . Q24H DIPESH Rx#:[id number] Vancomycin 1,500 mg In 250 Sodium Chloride 0.9% 250 ml @ 125 mls/hr IVPB Q12H DIPESH Rx#:[id number] Oral 240 Output: Urine 450 Other: Voiding Method Urinal Urinal # Voids 1 - Exam Vital Signs Temp 97 F L 12/03/18 04:50 Pulse 64 12/03/18 04:50 Resp 16 12/03/18 04:50 BP 105/61 12/03/18 04:50 Pulse Ox 95 12/03/18 04:50 GENERAL: The patient is alert and oriented x3, not in any acute distress. Well developed, well nourished. HEENT: Pupils are round and equally reacting to light. EOMI. No scleral icterus. No conjunctival pallor. Normocephalic, atraumatic. Oral mucosa moist CARDIOVASCULAR: S1 and S2 present. No murmurs, rubs, or gallops. PULMONARY: Chest is clear to auscultation, no wheezing or crackles. ABDOMEN: Soft, nontender, nondistended, normoactive bowel sounds. No palpable organomegaly. MUSCULOSKELETAL: Patient is having severe pain with the movement of both legs. No unilateral weakness at this time EXTREMITIES: No cyanosis, clubbing, or pedal edema. NEUROLOGICAL: Gross neurological examination did not reveal any focal deficits. SKIN: No rashes. - Labs CBC & Chem 7: 12/04/18 03:05 12/04/18 03:05 Labs: Abnormal Lab Results - Last 24 Hours (Table) 12/02/18 12/03/18 12/03/18 Range/Units 12:44 09:00 09:00 WBC (3.8-10.6) k/uL RBC (4.30-5.90) m/uL Hgb (13.0-17.5) gm/dL Hct (39.0-53.0) % Neutrophils # (1.3-7.7) k/uL APTT (22.0-30.0) sec BUN (9-20) mg/dL Glucose (74-99) mg/dL POC Glucose (mg/dL) (75-99) mg/dL Hemoglobin A1c 6.2 H (4.0-6.0) % Total Protein (6.3-8.2) g/dL Albumin 3.3 L (3.5-5.0) g/dL Total PSA 20.6 H (<=4.0) ng/mL 12/03/18 12/03/18 12/04/18 Range/Units 11:02 17:06 00:08 WBC (3.8-10.6) k/uL RBC (4.30-5.90) m/uL Hgb (13.0-17.5) gm/dL Hct (39.0-53.0) % Neutrophils # (1.3-7.7) k/uL APTT (22.0-30.0) sec BUN (9-20) mg/dL Glucose (74-99) mg/dL POC Glucose (mg/dL) 128 H 186 H 145 H (75-99) mg/dL Hemoglobin A1c (4.0-6.0) % Total Protein (6.3-8.2) g/dL Albumin (3.5-5.0) g/dL Total PSA (<=4.0) ng/mL 12/04/18 12/04/18 12/04/18 Range/Units 03:05 03:05 07:02 WBC 11.9 H (3.8-10.6) k/uL RBC 4.16 L (4.30-5.90) m/uL Hgb 11.4 L (13.0-17.5) gm/dL Hct 36.3 L (39.0-53.0) % Neutrophils # 10.1 H (1.3-7.7) k/uL APTT (22.0-30.0) sec BUN 26 H (9-20) mg/dL Glucose 128 H (74-99) mg/dL POC Glucose (mg/dL) 116 H (75-99) mg/dL Hemoglobin A1c (4.0-6.0) % Total Protein 6.1 L (6.3-8.2) g/dL Albumin 2.9 L (3.5-5.0) g/dL Total PSA (<=4.0) ng/mL 12/04/18 Range/Units 09:08 WBC (3.8-10.6) k/uL RBC (4.30-5.90) m/uL Hgb (13.0-17.5) gm/dL Hct (39.0-53.0) % Neutrophils # (1.3-7.7) k/uL APTT 92.8 H (22.0-30.0) sec BUN (9-20) mg/dL Glucose (74-99) mg/dL POC Glucose (mg/dL) (75-99) mg/dL Hemoglobin A1c (4.0-6.0) % Total Protein (6.3-8.2) g/dL Albumin (3.5-5.0) g/dL Total PSA (<=4.0) ng/mL Microbiology - Last 24 Hours (Table) 12/02/18 16:00 Urine Culture - Preliminary Urine,Voided Gram Neg Bacilli Assessment and Plan Assessment: -Intractable lower back pain and radicular pain.status post MRI of the lumbar spine, results pending. -History of a Hepatocellular carcinoma and prostate cancer -Inferior vena cava DVT , maintained on heparin -for the paraspinal mass or phlegmon Gastroesophageal reflux disease -Hyperlipidemia -Hypertension -Benign prostatic hypertrophy -Hypothyroidism -Possible acute UTI, cultures pending Plan: Continue on current medication regime ,monitoring and symptomatic treatment. Pain management. Continue Steroids, PPI. Possibly DC steroids if suspecting infection. Lumbar spine MRI results pending. Orthopedic, pain management and ID consult in place with recommendations pending. Prognosis guarded given multiple complex medical issues. Further recommendations to follow. The impression and plan of care has been dictated as directed. : I performed a history and examination of this patient, discussed the same with the dictator. I agree with the dictator's note ,documented as a scribe. Any additional findings or plans will be noted.
[2018-12-04 11:01] LABS: Glucose,Whole Blood 103 mg/dL (75-99)
--- NOTE | 2018-12-04 12:32 | P.PN ---
Subjective Progress Note Date: 12/04/18 Principal diagnosis: New Dual Primary Malignancies, Increased pain. Grfifin is feeling better today, pain is controlled as long as he does not have too much movement. Ortho-spine and Infectious disease has seen patient the plan is for surgical intervention of spine al abscess. I have discussed in detail with patient and family and will plan to move forward regarding this. Objective - Vital Signs Vital signs: Vital Signs Temp 97.5 F L 12/04/18 05:00 Pulse 60 12/04/18 05:00 Resp 18 12/04/18 05:00 BP 120/66 12/04/18 05:00 Pulse Ox 92 L 12/04/18 05:00 Intake & Output 12/03/18 12/04/18 12/04/18 18:59 06:59 18:59 Intake Total 121.25 866.555 147.761 Output Total 450 Balance -328.75 866.555 147.761 Intake: Intake, IV Titration 121.25 626.555 147.761 Amount Heparin Sod,Pork in 0.45% 121.25 216.555 147.761 NaCl 25,000 unit In 0.45 % NaCl 1 250ml.bag @ 18 UNITS/KG/HR 14.58 mls/hr IV .Q17H9M [facility] Rx#: [id number] Sodium Chloride 0.9% 1, 160 000 ml @ 20 mls/hr IV . Q24H [facility] Rx#:[id number] Vancomycin 1,500 mg In 250 Sodium Chloride 0.9% 250 ml @ 125 mls/hr IVPB Q12H [facility] Rx#:[id number] Oral 240 Output: Urine 450 Other: Voiding Method Urinal Urinal # Voids 1 - Exam Constitutional General appearance: no acute distress - EENT Eyes: EOMI, PERRLA ENT: hearing grossly normal, normal oropharynx - Neck Neck: no lymphadenopathy Thyroid: bilateral: normal size - Respiratory Respiratory: bilateral: CTA - Cardiovascular Rhythm: regular Heart sounds: normal: S1, S2 - Gastrointestinal General gastrointestinal: normal bowel sounds, soft - Integumentary Integumentary: normal - Musculoskeletal Musculoskeletal: generalized weakness, strength equal bilaterally - Psychiatric Psychiatric: A&O x's 3, appropriate affect - Labs CBC & Chem 7: 12/04/18 03:05 12/04/18 03:05 Labs: Abnormal Lab Results - Last 24 Hours (Table) 12/02/18 12/03/18 12/03/18 Range/Units 12:44 09:00 09:00 WBC (3.8-10.6) k/uL RBC (4.30-5.90) m/uL Hgb (13.0-17.5) gm/dL Hct (39.0-53.0) % Neutrophils # (1.3-7.7) k/uL APTT (22.0-30.0) sec BUN (9-20) mg/dL Glucose (74-99) mg/dL POC Glucose (mg/dL) (75-99) mg/dL Hemoglobin A1c 6.2 H (4.0-6.0) % Total Protein (6.3-8.2) g/dL Albumin 3.3 L (3.5-5.0) g/dL Total PSA 20.6 H (<=4.0) ng/mL 12/03/18 12/04/18 12/04/18 Range/Units 17:06 00:08 03:05 WBC 11.9 H (3.8-10.6) k/uL RBC 4.16 L (4.30-5.90) m/uL Hgb 11.4 L (13.0-17.5) gm/dL Hct 36.3 L (39.0-53.0) % Neutrophils # 10.1 H (1.3-7.7) k/uL APTT (22.0-30.0) sec BUN (9-20) mg/dL Glucose (74-99) mg/dL POC Glucose (mg/dL) 186 H 145 H (75-99) mg/dL Hemoglobin A1c (4.0-6.0) % Total Protein (6.3-8.2) g/dL Albumin (3.5-5.0) g/dL Total PSA (<=4.0) ng/mL 12/04/18 12/04/18 12/04/18 Range/Units 03:05 07:02 09:08 WBC (3.8-10.6) k/uL RBC (4.30-5.90) m/uL Hgb (13.0-17.5) gm/dL Hct (39.0-53.0) % Neutrophils # (1.3-7.7) k/uL APTT 92.8 H (22.0-30.0) sec BUN 26 H (9-20) mg/dL Glucose 128 H (74-99) mg/dL POC Glucose (mg/dL) 116 H (75-99) mg/dL Hemoglobin A1c (4.0-6.0) % Total Protein 6.1 L (6.3-8.2) g/dL Albumin 2.9 L (3.5-5.0) g/dL Total PSA (<=4.0) ng/mL 12/04/18 Range/Units 10:59 WBC (3.8-10.6) k/uL RBC (4.30-5.90) m/uL Hgb (13.0-17.5) gm/dL Hct (39.0-53.0) % Neutrophils # (1.3-7.7) k/uL APTT (22.0-30.0) sec BUN (9-20) mg/dL Glucose (74-99) mg/dL POC Glucose (mg/dL) 103 H (75-99) mg/dL Hemoglobin A1c (4.0-6.0) % Total Protein (6.3-8.2) g/dL Albumin (3.5-5.0) g/dL Total PSA (<=4.0) ng/mL Microbiology - Last 24 Hours (Table) 12/02/18 16:00 Urine Culture - Preliminary Urine,Voided Gram Neg Bacilli Assessment and Plan Plan: (1) Intractable low back pain Narrative/Plan: - The patient had similar symptoms that his initial presentation last month, his MRI at that time indicating no evidence of malignancy. - The symptoms were felt to be due to the moderate to severe disc disease noted at L5 L6. - Treatment as poutpatient has been Narcotic and Steroid management, as well as , referral to PMR. They have not seen yet He is now presenting with progression in his symptoms. Repeat computed tomography scan at this time notes a possible paraspinal mass with destructive process, with differentials including malignancy as well as discitis with phlegmon. Based on the report, as well as personally reviewed the images, this actually appears to be a new finding or at least a major change from 6 weeks ago. - He underwent a repeat MRI of the lumbar spine today. Orthopedic spine surgery has been consulted. - Dr. Acosta consulted regarding likely osteomyelitis/diskitis, plan for surgical intervention of spine abscess - Discussed results of PET and MRI in detail with radiology. 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 Was on xarelto as outpatient - Xarelto on hold for potential IR procedure of new finding in CT - Heparin Drip at this time. Current Visit: No Status: Acute Priority: High Code(s): I82.220 - ACUTE EMBOLISM AND THROMBOSIS OF INFERIOR VENA CAVA SNOMED Code(s): 856507444 (3) Hepatocellular carcinoma Narrative/Plan: - Appears to be localized likely candidate chemoembolization of liver, will need to address acute lumbarsacral infectious process prior to intervention for liver lesion. Current Visit: Yes Status: Acute Code(s): C22.0 - LIVER CELL CARCINOMA SNOMED Code(s): 107136571 (4) Prostate cancer Narrative/Plan: - As noted the patient had multiple prior prostate biopsies that were negative. The diagnosis was made via lymph node biopsy last month. PSA has been stable in the low 20 range. Current Visit: Yes Status: Acute Code(s): C61 - MALIGNANT NEOPLASM OF PROSTATE SNOMED Code(s): 065174853 (5) Osteomyelitis/Diskitis: Discussed everything above with daughter and and patient, all questions answered. Will await recs and expectations from ID. Discussion with family and patient today expressing that surgical intervention would be necessary related to infection/inflammation as well as, relief of pain. - Recommend further evaluation of tissue with his recent diagnoses of two primary malignancies, an underlying malignancy cannot completely be excluded without tissue of this area. He has had recent history of recurrent infections. - Planning surgery on 12/05/18. - Plan to begin Lupron for prostate cancer after discharge - Plan for cordination of chemo=embolization of hepatocellular local cancer after complete resolution of infection and healing from surgery, will work with Dr. Acosta to manage this time line efficiently. Physician Attest: I have completed the full history and physical of this patient and agree with above dictation by Cat Whiting NP. Dictated as a scribe.
[2018-12-04] MEDS: HYDROmorphone 1 MG/ML 1 ML SYRINGE IVP PRN (13:30)
[2018-12-04] MEDS: HEPARIN SOD,PORK IN 0.45% NACL 25,000 UNIT in 0.45% NACL 1 250ML.BAG IV SCH (13:42)
[2018-12-04 17:13] LABS: Glucose,Whole Blood 118 mg/dL (75-99)
[2018-12-04] MEDS: HEPARIN SODIUM,PORCINE 5,000 UNIT/ML 1 ML VIAL IV PRN (17:37)
[2018-12-04 20:09] LABS: Glucose,Whole Blood 124 mg/dL (75-99)
--- NOTE | 2018-12-05 00:09 | P.PN ---
Subjective Progress Note Date: 12/04/18 Progress note being dictated for Dr. Minor. Interval history:83-year-old pleasant gentleman with history of prostate cancer as well as a hepatocellular carcinoma given comments of severe back pain patient had a recent MRI and PET scan patient back pain is uncontrollable no weakness no saddle anesthesia no but does have radicular symptoms radiating to both the hip both the hips and thighs. And, denied any nausea vomiting. Denied any fever chills. She did a lumbar spine CT which showed destructive changes in L4-L5 within evidence of paraspinal mass with evidence of acute and chronic discitis and possible phlegmon and mild spinal stenosis at L1 to L3 4. Patient was started on steroids anti-inflammatories and pain medications. I will call her in consult pain management and a spinal surgeon. 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 We'll Allsop an MRI of the lumbar spine. Patient does have extensive back history from his recent past because of his prostate cancer found to have discitis recently although there is a paraspinal mass or phlegmon is new. There is no evidence of port infection at this time I'll obtain a CBC basic metabolic profile. Patient will not be started on IV antibiotics but infectious causes are definitely in the differential. is unable to ablate because of severe pain in the back 12/03/17 patient has just returned from lumbar spine MRI this morning. States back pain controlled at rest, but significant pain with movement. Generalized equal weakness of bilateral lower extremities. Pain management, orthopedic surgery consulted with recommendations pending. Maintained on steroids, blood sugars controlled. Afebrile, normal WBC. Urine culture pending. Continues on IV antibiotics, heparin drip. ID consult in place. Denies chest pain, palpitations or shortness of breath. 12/04/2018. Pain controlled at rest, with movement, lower back pain radiates down right leg. States unable to stand up. Lumbar spine MRI demonstrated acute discitis/osteomyelitis at L4-L5 and to a lesser degree at L5 to S1 with associated elongated epidural abscess centered at the L4-L5 intravertebral disc space creating moderate spinal canal stenosis and severe neural foraminal narrowing at L4-L5 with nerve root impingement bilaterally, central disc herniation at L1-L2 resulting in moderate to severe left neural foraminal narrowing, moderate right neural foraminal narrowing and mild spinal canal stenosis, moderate to severe multilevel degenerative disc disease, diffuse osseous metastasis considered less likely, markedly enlarged prostate gland. Evaluated by pain management, infectious disease and orthopedic spine, recommendations noted. Brace ordered, pending. Orthopedics discussing surgical intervention.Afebrile, urine cultures reporting E. coli. REVIEW OF SYSTEMS: CONSTITUTIONAL: No fever, no malaise, positive fatigue. HEENT: No recent visual problems or hearing problems. Denied any sore throat. CARDIOVASCULAR: No chest pain, orthopnea, PND, no palpitations, no syncope. PULMONARY: No shortness of breath, no cough, no hemoptysis. GASTROINTESTINAL: No diarrhea, no nausea, no vomiting, no abdominal pain. NEUROLOGICAL: No headaches, positive generalized bilateral weakness, no numbness. HEMATOLOGICAL: Denies any bleeding or petechiae. GENITOURINARY: Denies any burning micturition, frequency, or urgency. MUSCULOSKELETAL/RHEUMATOLOGICAL: As mentioned in HPI, low back pain, radiates down right leg with bilateral lower extremity weakness ENDOCRINE: Denies any polyuria or polydipsia. The rest of the 14-point review of systems is negative. Active Medications Acetaminophen (Tylenol Tab) 650 mg PO Q6HR PRN PRN Reason: Fever and/ or Pain Atenolol (Tenormin) 25 mg PO DAILY [facility] Last Admin: 12/04/18 07:36 Dose: 25 mg Cyclobenzaprine HCl (Flexeril) 5 mg PO TID [facility] Last Admin: 12/04/18 07:36 Dose: 5 mg Heparin Sodium (Porcine) (Heparin) 0 unit IV PER PROTOCOL PRN; Protocol PRN Reason: Low PTT Last Admin: 12/03/18 14:23 Dose: 3,240 unit Hydromorphone HCl (Dilaudid) 0.5 mg IVP Q3HR PRN PRN Reason: Severe Pain Last Admin: 12/04/18 13:30 Dose: 0.5 mg Sodium Chloride (Saline 0.9%) 1,000 mls @ 20 mls/hr IV .Q24H [facility] Last Admin: 12/04/18 06:00 Dose: 20 mls/hr Heparin Sodium/Sodium Chloride (25,000 unit/ Sodium Chloride) 250 mls @ 14.58 mls/hr IV .Q17H9M [facility]; Protocol Last Admin: 12/04/18 13:42 Dose: 23.4 units/kg/hr, 18.95 mls/hr Cefepime HCl 1 gm/ Sodium (Chloride) 50 mls @ 100 mls/hr IVPB Q8HR [facility] Last Admin: 12/04/18 09:14 Dose: 100 mls/hr Vancomycin HCl 1,500 mg/ (Sodium Chloride) 250 mls @ 125 mls/hr IVPB Q12H [facility] Last Admin: 12/04/18 06:00 Dose: 125 mls/hr Ketorolac Tromethamine (Toradol) 15 mg IVP Q6HR PRN PRN Reason: Mild to Moderate Pain Stop: 12/06/18 11:52 Last Admin: 12/03/18 20:54 Dose: 15 mg Levothyroxine Sodium (Synthroid) 100 mcg PO 0630 [facility] Last Admin: 12/04/18 05:59 Dose: 100 mcg Miscellaneous Information (Vancomycin Trough Due) 0 each MISCELLANE DIRECTED ONE Stop: 12/05/18 05:01 Naloxone HCl (Narcan) 0.2 mg IV Q2M PRN PRN Reason: Opioid Reversal Oxycodone/Acetaminophen (Percocet 7.5-325) 1 each PO Q6HR PRN PRN Reason: Pain Last Admin: 12/04/18 14:29 Dose: 1 each Pantoprazole Sodium (Protonix) 40 mg PO AC-BRKFST [facility] Last Admin: 12/04/18 07:36 Dose: 40 mg Polyethylene Glycol (Miralax) 17 gm PO HS PRN PRN Reason: Constipation Senna (Senokot) 8.6 mg PO BID [facility] Last Admin: 12/04/18 07:37 Dose: 8.6 mg Tamsulosin HCl (Flomax) 0.4 mg PO DAILY [facility] Last Admin: 12/04/18 07:37 Dose: 0.4 mg Objective - Vital Signs Vital signs: Vital Signs Temp 97.8 F 12/04/18 12:22 Pulse 64 12/04/18 12:22 Resp 18 12/04/18 12:22 BP 123/69 12/04/18 12:22 Pulse Ox 94 L 12/04/18 12:22 Intake & Output 12/03/18 12/04/18 12/04/18 18:59 06:59 18:59 Intake Total 121.25 866.555 630.195 Output Total 450 500 Balance -328.75 866.555 130.195 Intake: IV 168 Heparin Sod,Pork in 0.45% 168 NaCl 25,000 unit In 0.45 % NaCl 1 250ml.bag @ 18 UNITS/KG/HR 14.58 mls/hr IV .Q17H9M [facility] Rx#: [id number] Intake, IV Titration 121.25 626.555 462.195 Amount Cefepime 1 gm In Sodium 50 Chloride 0.9% 50 ml @ 100 mls/hr IVPB Q8HR [facility] Rx# :[id number] Heparin Sod,Pork in 0.45% 121.25 216.555 162.195 NaCl 25,000 unit In 0.45 % NaCl 1 250ml.bag @ 18 UNITS/KG/HR 14.58 mls/hr IV .Q17H9M [facility] Rx#: [id number] Sodium Chloride 0.9% 1, 160 000 ml @ 20 mls/hr IV . Q24H [facility] Rx#:[id number] Vancomycin 1,500 mg In 250 Sodium Chloride 0.9% 250 ml @ 125 mls/hr IVPB ONCE ONE Rx#:[id number] Vancomycin 1,500 mg In 250 Sodium Chloride 0.9% 250 ml @ 125 mls/hr IVPB Q12H [facility] Rx#:[id number] Oral 240 Output: Urine 450 500 Other: Voiding Method Urinal Urinal # Voids 1 - Exam GENERAL: The patient is alert and oriented x3, not in any acute distress. Well developed, well nourished. HEENT: Pupils are round and equally reacting to light. EOMI. No scleral icterus. No conjunctival pallor. Normocephalic, atraumatic. Oral mucosa moist CARDIOVASCULAR: S1 and S2 present. No murmurs, rubs, or gallops. PULMONARY: Chest is clear to auscultation, no wheezing or crackles. ABDOMEN: Soft, nontender, nondistended, normoactive bowel sounds. No palpable organomegaly. MUSCULOSKELETAL: Patient is having severe pain with the movement of both legs. No unilateral weakness at this time EXTREMITIES: No cyanosis, clubbing, or pedal edema. NEUROLOGICAL: Gross neurological examination did not reveal any focal deficits. SKIN: No rashes. Stage I coccyx, right buttocks scabs. Microbiology 12/02/18 16:00 Urine,Voided Urine Culture - Final Escherichia coli - Labs CBC & Chem 7: 12/04/18 03:05 12/04/18 03:05 Labs: Abnormal Lab Results - Last 24 Hours (Table) 12/03/18 12/03/18 12/04/18 Range/Units 09:00 17:06 00:08 WBC (3.8-10.6) k/uL RBC (4.30-5.90) m/uL Hgb (13.0-17.5) gm/dL Hct (39.0-53.0) % Neutrophils # (1.3-7.7) k/uL APTT (22.0-30.0) sec BUN (9-20) mg/dL Glucose (74-99) mg/dL POC Glucose (mg/dL) 186 H 145 H (75-99) mg/dL Total Protein (6.3-8.2) g/dL Albumin (3.5-5.0) g/dL Total PSA 20.6 H (<=4.0) ng/mL 12/04/18 12/04/18 12/04/18 Range/Units 03:05 03:05 07:02 WBC 11.9 H (3.8-10.6) k/uL RBC 4.16 L (4.30-5.90) m/uL Hgb 11.4 L (13.0-17.5) gm/dL Hct 36.3 L (39.0-53.0) % Neutrophils # 10.1 H (1.3-7.7) k/uL APTT (22.0-30.0) sec BUN 26 H (9-20) mg/dL Glucose 128 H (74-99) mg/dL POC Glucose (mg/dL) 116 H (75-99) mg/dL Total Protein 6.1 L (6.3-8.2) g/dL Albumin 2.9 L (3.5-5.0) g/dL Total PSA (<=4.0) ng/mL 12/04/18 12/04/18 Range/Units 09:08 10:59 WBC (3.8-10.6) k/uL RBC (4.30-5.90) m/uL Hgb (13.0-17.5) gm/dL Hct (39.0-53.0) % Neutrophils # (1.3-7.7) k/uL APTT 92.8 H (22.0-30.0) sec BUN (9-20) mg/dL Glucose (74-99) mg/dL POC Glucose (mg/dL) 103 H (75-99) mg/dL Total Protein (6.3-8.2) g/dL Albumin (3.5-5.0) g/dL Total PSA (<=4.0) ng/mL Microbiology - Last 24 Hours (Table) 12/02/18 16:00 Urine Culture - Preliminary Urine,Voided Gram Neg Bacilli Assessment and Plan Assessment: -Intractable lower back pain and radicular pain.status post MRI of the lumbar spine, results noted; L4-5 and L5-S1 with acute discitis,osteomyelitis, lumbar epidural abscess, L4-5 spinal canal stenosis and neural foraminal stenosis.L4-5 laminectomy decompression with irrigation and debridement of epidural abscess with orthopedic spine pending. 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 coli Plan: Continue on current medication regime , PPI, monitoring and symptomatic treatment. Pain management. Patient and family have agreed to proceed with surgical [id number] laminectomy decompression with irrigation and debridement of epidural abscess with orthopedic spine, in a.m. antibiotics as per ID Prognosis guarded given multiple complex medical issues. Further recommendations to follow. The impression and plan of care has been dictated as directed. : I performed a history and examination of this patient, discussed the same with the dictator. I agree with the dictator's note ,documented as a scribe. Any additional findings or plans will be noted.
[2018-12-05] MEDS: HYDROmorphone 1 MG/ML 1 ML SYRINGE IVP PRN ×2 (01:40→21:26)
[2018-12-05] MEDS: HEPARIN SOD,PORK IN 0.45% NACL 25,000 UNIT in 0.45% NACL 1 250ML.BAG IV SCH (02:45)
[2018-12-05] MEDS ORDERED: VANCOMYCIN TROUGH DUE 1 EACH MISC MISCELLANE ONE (05:00)
[2018-12-05 05:58] LABS: Basophils % (A) 1 %; Eosinophils # (A) 0.4 k/uL (0-0.7); Eosinophils % (A) 5 %; HCT 37.7 % (39.0-53.0); HGB 11.8 gm/dL (13.0-17.5); Lymphocytes % (A) 28 %; MCH 27.3 pg (25.0-35.0); MCHC 31.2 g/dL (31.0-37.0); MCV 87.5 fL (80.0-100.0); Mean Platelet Volume 6.5; Monocytes # (A) 0.4 k/uL (0-1.0); Monocytes % (A) 6 %; Neutrophils # (A) 4.2 k/uL (1.3-7.7); Neutrophils % (A) 59 %; Platelet Count 237 k/uL (150-450); RBC 4.31 m/uL (4.30-5.90); RDW 15.5 % (11.5-15.5); WBC 7.1 k/uL (3.8-10.6)
[2018-12-05] MEDS: VANCOMYCIN 1,500 MG in SODIUM CHLORIDE 0.9% 250 ML IVPB SCH ×2 (06:25→17:32)
[2018-12-05 07:09] LABS: Glucose,Whole Blood 84 mg/dL (75-99)
[2018-12-05] MEDS: ATENOLOL 25 MG TAB PO SCH (08:18)
[2018-12-05] MEDS: TAMSULOSIN 0.4 MG CAP.ER.24H PO SCH (08:18)
[2018-12-05] MEDS: LEVOTHYROXINE 100 MCG TAB PO SCH (08:18)
[2018-12-05] MEDS: PANTOPRAZOLE 40 MG TABLET PO SCH (08:18)
[2018-12-05] MEDS: CEFEPIME 1 GM in SODIUM CHLORIDE 0.9% 50 ML IVPB SCH ×2 (08:22→16:32)
[2018-12-05] MEDS: CYCLOBENZAPRINE 5 MG TAB PO SCH ×3 (08:29→21:26)
[2018-12-05] MEDS: SENNOSIDES 8.6 MG TAB PO SCH ×2 (08:29→21:26)
[2018-12-05 11:00] LABS: Glucose,Whole Blood 79 mg/dL (75-99)
[2018-12-05] MEDS ORDERED: LACTATED RINGERS 1,000 ML IV ONE ×2 (12:05→14:51)
[2018-12-05] MEDS ORDERED: fentaNYL (PF) 50 MCG/ML 2 ML AMP ONE ×2 (13:14)
[2018-12-05] MEDS ORDERED: PROPOFOL 10 MG/ML 20 ML VIAL IV ONE ×2 (13:14)
[2018-12-05] MEDS ORDERED: LIDOCAINE 1% INJ 10MG/ML (20 ML MDV) ONE ×2 (13:14)
[2018-12-05] MEDS ORDERED: SUCCINYLCHOLINE CHLORIDE 100 MG/5 ML SYR IV ONE ×2 (13:14)
[2018-12-05] MEDS ORDERED: FLUMAZENIL 0.1 MG/ML 5 ML VIAL IVP ONE (13:14)
[2018-12-05] MEDS ORDERED: GLYCOPYRROLATE 0.2 MG/ML 2 ML VIAL ONE ×2 (13:14)
[2018-12-05] MEDS ORDERED: ROCURONIUM BROMIDE 10 MG/ML 10 ML VIAL IV ONE ×2 (13:14)
[2018-12-05] MEDS ORDERED: MIDAZOLAM 2 MG/2 ML VIAL ONE ×2 (13:14)
[2018-12-05] MEDS ORDERED: NEOSTIGMINE 1 MG/ML 10 ML VIAL ONE (13:14)
[2018-12-05] MEDS ORDERED: BACITRACIN 50,000 UNIT, POLYMYXIN B 500,000 UNIT in SODIUM CHLORIDE 0.9% IRRIGATIO 1,00... IRRIGATION ONE (13:18)
[2018-12-05] MEDS ORDERED: LIDOCAINE 0.5%-EPI 1:200,000 50 ML VIAL SQ ONE (13:44)
[2018-12-05] MEDS ORDERED: GELATIN SPONGE,ABSORB (LARGE) 1 EACH SPONGE TOPICAL ONE (13:45)
[2018-12-05] MEDS ORDERED: THROMBIN (BOVINE) 5,000 UNIT VIAL TOPICAL ONE (13:46)
--- NOTE | 2018-12-05 15:06 | P.PN ---
Subjective Progress Note Date: 12/05/18 Progress note being dictated for Dr. Minor. Interval history:83-year-old pleasant gentleman with history of prostate cancer as well as a hepatocellular carcinoma given comments of severe back pain patient had a recent MRI and PET scan patient back pain is uncontrollable no weakness no saddle anesthesia no but does have radicular symptoms radiating to both the hip both the hips and thighs. And, denied any nausea vomiting. Denied any fever chills. She did a lumbar spine CT which showed destructive changes in L4-L5 within evidence of paraspinal mass with evidence of acute and chronic discitis and possible phlegmon and mild spinal stenosis at L1 to L3 4. Patient was started on steroids anti-inflammatories and pain medications. I will call her in consult pain management and a spinal surgeon. 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 We'll Allsop an MRI of the lumbar spine. Patient does have extensive back history from his recent past because of his prostate cancer found to have discitis recently although there is a paraspinal mass or phlegmon is new. There is no evidence of port infection at this time I'll obtain a CBC basic metabolic profile. Patient will not be started on IV antibiotics but infectious causes are definitely in the differential. is unable to ablate because of severe pain in the back 12/03/17 patient has just returned from lumbar spine MRI this morning. States back pain controlled at rest, but significant pain with movement. Generalized equal weakness of bilateral lower extremities. Pain management, orthopedic surgery consulted with recommendations pending. Maintained on steroids, blood sugars controlled. Afebrile, normal WBC. Urine culture pending. Continues on IV antibiotics, heparin drip. ID consult in place. Denies chest pain, palpitations or shortness of breath. 12/04/2018. Pain controlled at rest, with movement, lower back pain radiates down right leg. States unable to stand up. Lumbar spine MRI demonstrated acute discitis/osteomyelitis at L4-L5 and to a lesser degree at L5 to S1 with associated elongated epidural abscess centered at the L4-L5 intravertebral disc space creating moderate spinal canal stenosis and severe neural foraminal narrowing at L4-L5 with nerve root impingement bilaterally, central disc herniation at L1-L2 resulting in moderate to severe left neural foraminal narrowing, moderate right neural foraminal narrowing and mild spinal canal stenosis, moderate to severe multilevel degenerative disc disease, diffuse osseous metastasis considered less likely, markedly enlarged prostate gland. Evaluated by pain management, infectious disease and orthopedic spine, recommendations noted. Brace ordered, pending. Orthopedics discussing surgical intervention.Afebrile, urine cultures reporting E. coli. 12/05/2018 no overnight events. Scheduled for surgery this morning. Afebrile, normal WBC.VSS, maintaining O2 sats in the mid 90s on room air. Currently pain controlled at rest. Denies chest pain, palpitations or shortness of breath. Denies lightheadedness dizziness or focal deficits. Objective - Vital Signs Vital signs: Vital Signs Temp 97.6 F 12/05/18 05:00 Pulse 59 L 12/05/18 05:00 Resp 16 12/05/18 05:00 BP 139/71 12/05/18 05:00 Pulse Ox 96 12/05/18 05:00 Intake & Output 12/04/18 12/05/18 12/05/18 18:59 06:59 18:59 Intake Total 701.573 706.945 Output Total 500 1000 Balance 201.573 -293.055 Intake: IV 168 Heparin Sod,Pork in 0.45% 168 NaCl 25,000 unit In 0.45 % NaCl 1 250ml.bag @ 18 UNITS/KG/HR 14.58 mls/hr IV .Q17H9M [facility] Rx#: [id number] Intake, IV Titration 533.573 706.945 Amount Cefepime 1 gm In Sodium 50 50 Chloride 0.9% 50 ml @ 100 mls/hr IVPB Q8HR [facility] Rx# :[id number] Heparin Sod,Pork in 0.45% 233.573 246.945 NaCl 25,000 unit In 0.45 % NaCl 1 250ml.bag @ 18 UNITS/KG/HR 14.58 mls/hr IV .Q17H9M [facility] Rx#: [id number] Sodium Chloride 0.9% 1, 160 000 ml @ 20 mls/hr IV . Q24H [facility] Rx#:[id number] Vancomycin 1,500 mg In 250 Sodium Chloride 0.9% 250 ml @ 125 mls/hr IVPB ONCE ONE Rx#:[id number] Vancomycin 1,500 mg In 250 Sodium Chloride 0.9% 250 ml @ 125 mls/hr IVPB Q12H [facility] Rx#:[id number] Output: Urine 500 1000 Other: Voiding Method Urinal Urinal # Voids 1 1 - Exam GENERAL: The patient is alert and oriented x3, not in any acute distress. HEENT: Pupils are round and equally reacting to light. EOMI. No scleral icterus. No conjunctival pallor. Normocephalic, atraumatic. Oral mucosa dry CARDIOVASCULAR: S1 and S2 present. No murmurs, rubs, or gallops. PULMONARY: Chest is clear to auscultation, no wheezing or crackles. ABDOMEN: Soft, nontender, nondistended, normoactive bowel sounds. No palpable organomegaly. EXTREMITIES: No cyanosis, clubbing, or pedal edema. NEUROLOGICAL: Gross neurological examination did not reveal any focal deficits. SKIN: No rashes. Stage I coccyx, right buttocks scabs. Microbiology 12/02/18 16:00 Urine,Voided Urine Culture - Final Escherichia coli - Labs CBC & Chem 7: 12/05/18 05:44 12/04/18 03:05 Labs: Abnormal Lab Results - Last 24 Hours (Table) 12/04/18 12/04/18 12/04/18 Range/Units 10:59 16:53 17:12 Hgb (13.0-17.5) gm/dL Hct (39.0-53.0) % APTT 40.4 H (22.0-30.0) sec POC Glucose (mg/dL) 103 H 118 H (75-99) mg/dL 12/04/18 12/04/18 12/05/18 Range/Units 20:08 23:35 05:44 Hgb 11.8 L (13.0-17.5) gm/dL Hct 37.7 L (39.0-53.0) % APTT 66.7 H (22.0-30.0) sec POC Glucose (mg/dL) 124 H (75-99) mg/dL Microbiology - Last 24 Hours (Table) 12/02/18 16:00 Urine Culture - Final Urine,Voided Escherichia coli Assessment and Plan Assessment: -Intractable lower back pain and radicular pain.status post MRI of the lumbar spine, results noted; L4-5 and L5-S1 with acute discitis,osteomyelitis, lumbar epidural abscess, L4-5 spinal canal stenosis and neural foraminal stenosis.L4-5 laminectomy decompression with irrigation and debridement of epidural abscess with orthopedic spine pending. 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 coli Plan: Continue on current medication regime , PPI, monitoring and symptomatic treatment. L4-5 laminectomy decompression/irrigation and debridement of epidural abscess with orthopedic spine pending. Continue on IV antibiotics as per ID. pain management. Prognosis guarded given multiple complex medical issues. Further recommendations to follow. The impression and plan of care has been dictated as directed. : I performed a history and examination of this patient, discussed the same with the dictator. I agree with the dictator's note ,documented as a scribe. Any additional findings or plans will be noted.
--- NOTE | 2018-12-05 15:21 | P.OP ---
Date of Procedure: 12/05/18 Preoperative Diagnosis: L4 5 epidural abscess L4 5 discitis L4 5 osteomyelitis Low back pain with lower extremity radiculopathy History of metastatic prostate and colon cancer Postoperative Diagnosis: Same Plus incidental durotomy approximately 2 mm repaired in surgery Anesthesia: GETA Pathology: other (L4 5 deep disc culture sent to microbiology with discectomy material sent to pathology) Condition: stable Disposition: PACU Description of Procedure: BRIEF OPERATIVE NOTE Preoperative Diagnosis:L4 5 epidural abscess L4 5 infectious discitis L4 5 osteomyelitis Low back pain with lower extremity radiculopathy History of metastatic prostate and colon cancer Postoperative Diagnosis: Same with 2 mm incidental durotomy repaired in surgery Procedure: Laminectomy and wide decompression with bilateral partial medial facetectomy and foraminotomy L4 5 Discectomy for decompression L4 5 Irrigation and excisional debridement of deep disc space at L4 5 Irrigation and excisional debridement of epidural abscess approximately 1.5 x 1.5 cm and L4 5 Partial subtotal corpectomy of L4 osteomyelitis Repair of 2 mm incidental durotomy Surgeon: Dr. Kirby Review Appraiser: Leroy BROWN who is present throughout the entire the case persistence during positioning, dissection, exposure, visualization, and all crucial elements of the case as well as closure. Anesthesia: General anesthesia Estimated blood loss: Approximately 100 mL Complications: 2 mm incidental durotomy which was repaired for watertight closure in surgery Components implanted: None Disposition: To recovery room in good stable condition. OPERATIVE INDICATIONS The patient has been having issues in their lower back and lower extremities. He has multiple medical issues and has been actively treated for metastatic colon and prostate cancer with urinary tract infection. His been on long-term antibiotics however developed evidence for discitis and ostium myelitis with epidural abscess at L4 5. He was having severe low back pain with lower extremity radicular pain. He is not having neurologic deficit. The patient has been through conservative treatment with long-term antibiotics but was not having any improvement and was having worsening of his symptoms. He was having worsening of his imaging with evidence of epidural abscess at L4 5 as well as discitis and erosive osteomyelitis. We discussed the case with multiple medical services including physical infectious disease as well as hematology oncology. With the infection at his spine and it was having great copiously proceeding with any further treatment for his oncology issues. He was not having any progress despite being on long-term antibiotics with infectious disease. We discussed various treatment options including surgery, and the patient wishes to proceed with surgery We discussed the risk, patient's alternatives and benefits of surgery including but not limited to, risk of bleeding risk of infection, risk of need for further surgery, risk of dural tear or nerve damage, risk of decreased, loss of motion, loss of function, nerve damage, paralysis, heart attack, blindness and . OPERATIVE SUMMARY After discussing all the risks, patient alternatives and benefits at length, the patient elected to proceed with surgical intervention, signed informed consent, and presented for their procedure. The patient was seen and examined in the preoperative holding area and the surgical site was marked. The patient was given antibiotics and brought to the operating room. The patient was sedated and intubated by anesthesia in standard fashion. The patient was positioned on to the operating room table in a prone position on the appropriate frame which was well-padded and well molded. We were careful to pad any bony prominences and pressure points. We were careful to maintain the patient's cervical spine and good neutral alignment and position throughout. The patient was prepped and draped in a normal standard fashion. An appropriate timeout and keystone protocol performed. We were able to proceed with the surgery. Fluoroscopy was utilized to establish the appropriate level. The local wound area was infiltrated superficially at the subcutaneous tissue with local anesthetic. An incision was made at the midline longitudinally over the appropriate levels at L4 5. Dissection was taken down subcutaneously to the level of the fascia which was split midline. Dissection was taken over the lamina. Intraoperative fluoroscopy was taken which showed a marker at the appropriate level at L4 5. With the appropriate level positively confirmed, we were able to proceed with laminectomy. The wound was copiously irrigated and suctioned dry as had been done periodically throughout the case. I performed a wide bilateral laminectomy with bilateral partial medial facetectomy and foraminotomy with a combination of curettes and a high-speed bur and Kerrison rongeurs. A small medial facetectomy was performed again further access. A partial foraminotomy was also performed. Portions of the ligamentum flavum were taken down to expose the dura and traversing nerve root bilaterally. I was able to mobilize the traversing nerve root and gain access to the disc space on the left. Note was made of obvious change at the disc with erosion at the annulus and protrusion into the canal. There is an evidence of a pocket of purulent material at the left paracentral region as well. Protecting the soft tissue structures, a small annulotomy was established. There was obvious pus from the disc space and on the abscess. There is obvious denuding of the disc and significant erosion of the bone at L4. Large fragments of infected disc material and vertebral body had to be removed for excision as it was showing obvious infection and erosion. I was able to perform discectomy and remove any extruded disc fragments and any loose fragments from within the disc itself. I performed partial subtotal corpectomy at L4 as there were significant erosion and osteomyelitis at the vertebral body. There is near complete erosion of the nucleus of L4 5 I tried to preserve the disc annulus that appeared stable. There were no further extruded fragments noted. Good hemostasis maintained. The wound was copiously irrigated and suctioned dry with large amounts of antibiotic impregnated irrigation. I noticed at the far lateral aspect of the traversing nerve root there appeared to be a dural leak approximate 2 mm in length. I was able to isolate the tear to evaluate the incidental durotomy. I used 6-0 Prolene and micro technique to do a direct repair of the durotomy with 6-0 Prolene area I was able place 3 stitches at the area and I had good watertight closure at the durotomy. Good decompression and discectomy was noted. We had no further evidence of tear , dural leak or obvious pus. We were able to proceed with closure. The fascia was closed for a watertight closure with PDS. The subcuticular tissue was closed with absorbable suture. The wound was cleaned and dried and dressed with the appropriate dressing. The drapes were broken down. The patient was gently rolled back onto their hospital bed being careful to maintain their cervical spine and good neutral alignment and position. They were woken up by anesthesia, extubated, and brought to the recovery room in good stable condition. The patient will be admitted to the hospital for observation and for appropriate postoperative care, medical management and monitoring. We will continue to follow them closely about the postoperative course.
[2018-12-05] MEDS ORDERED: HYDROmorphone 0.5 MG/0.5 ML SYRINGE IVP PRN (15:23)
[2018-12-05] MEDS ORDERED: HYDROmorphone 1 MG/ML 1 ML SYRINGE IVP PRN (15:23)
[2018-12-05] MEDS ORDERED: MAGNESIUM HYDROXIDE 2,400 MG/10 ML CUP PO PRN (15:23)
[2018-12-05] MEDS ORDERED: ONDANSETRON 4 MG/2 ML VIAL IVP PRN (15:23)
[2018-12-05] MEDS ORDERED: BENZOCAINE/MENTHOL LOZENG 1 EACH LOZENGE MUCOUS MEM PRN (15:23)
[2018-12-05] MEDS ORDERED: HYDROcodone/APAP 5-325MG 1 EACH TAB PO PRN (15:23)
[2018-12-05] MEDS ORDERED: HYDROmorphone 0.5 MG/0.5 ML SYRINGE IVP ONE ×3 (15:25→15:46)
[2018-12-05] MEDS ORDERED: HYDROmorphone 1 MG/ML 1 ML SYRINGE IVP ONE (15:34)
--- NOTE | 2018-12-05 15:54 | P.PN ---
Subjective Progress Note Date: 12/05/18 Principal diagnosis: New Dual Primary Malignancies, Increased pain. Griffin is headed to surgery this am, in good spirits, no acute complaints overnight Objective - Vital Signs Vital signs: Vital Signs Temp 96.8 F L 12/05/18 15:20 Pulse 47 L 12/05/18 15:45 Resp 16 12/05/18 15:45 BP 148/64 12/05/18 15:45 Pulse Ox 95 12/05/18 15:45 Intake & Output 12/04/18 12/05/18 12/05/18 18:59 06:59 18:59 Intake Total 701.573 561.424 1997 Output Total 500 1000 10 Balance 201.573 -795.352 9258 Intake: IV 168 1301 Heparin Sod,Pork in 0.45% 168 NaCl 25,000 unit In 0.45 % NaCl 1 250ml.bag @ 18 UNITS/KG/HR 14.58 mls/hr IV .Q17H9M [facility] Rx#: [id number] Intake, IV Titration 533.573 706.945 Amount Cefepime 1 gm In Sodium 50 50 Chloride 0.9% 50 ml @ 100 mls/hr IVPB Q8HR [facility] Rx# :[id number] Heparin Sod,Pork in 0.45% 233.573 246.945 NaCl 25,000 unit In 0.45 % NaCl 1 250ml.bag @ 18 UNITS/KG/HR 14.58 mls/hr IV .Q17H9M [facility] Rx#: [id number] Sodium Chloride 0.9% 1, 160 000 ml @ 20 mls/hr IV . Q24H [facility] Rx#:[id number] Vancomycin 1,500 mg In 250 Sodium Chloride 0.9% 250 ml @ 125 mls/hr IVPB ONCE ONE Rx#:[id number] Vancomycin 1,500 mg In 250 Sodium Chloride 0.9% 250 ml @ 125 mls/hr IVPB Q12H [facility] Rx#:[id number] Output: Urine 500 1000 Estimated Blood Loss 10 Other: Voiding Method Urinal Urinal Urinal # Voids 1 1 - Exam Constitutional General appearance: no acute distress - EENT Eyes: EOMI, PERRLA ENT: hearing grossly normal, normal oropharynx - Neck Neck: no lymphadenopathy Thyroid: bilateral: normal size - Respiratory Respiratory: bilateral: CTA - Cardiovascular Rhythm: regular Heart sounds: normal: S1, S2 - Gastrointestinal General gastrointestinal: normal bowel sounds, soft - Integumentary Integumentary: normal - Musculoskeletal Musculoskeletal: generalized weakness, strength equal bilaterally - Psychiatric Psychiatric: A&O x's 3, appropriate affect - Labs CBC & Chem 7: 12/05/18 05:44 12/04/18 03:05 Labs: Abnormal Lab Results - Last 24 Hours (Table) 12/04/18 12/04/18 12/04/18 Range/Units 16:53 17:12 20:08 Hgb (13.0-17.5) gm/dL Hct (39.0-53.0) % APTT 40.4 H (22.0-30.0) sec POC Glucose (mg/dL) 118 H 124 H (75-99) mg/dL 12/04/18 12/05/18 Range/Units 23:35 05:44 Hgb 11.8 L (13.0-17.5) gm/dL Hct 37.7 L (39.0-53.0) % APTT 66.7 H (22.0-30.0) sec POC Glucose (mg/dL) (75-99) mg/dL Microbiology - Last 24 Hours (Table) 12/02/18 16:00 Urine Culture - Final Urine,Voided Escherichia coli Assessment and Plan Plan: (1) Intractable low back pain Narrative/Plan: - The patient had similar symptoms that his initial presentation last month, his MRI at that time indicating no evidence of malignancy. - The symptoms were felt to be due to the moderate to severe disc disease noted at L5 L6. - Treatment as poutpatient has been Narcotic and Steroid management, as well as , referral to PMR. They have not seen yet He is now presenting with progression in his symptoms. Repeat computed tomography scan at this time notes a possible paraspinal mass with destructive process, with differentials including malignancy as well as discitis with phlegmon. Based on the report, as well as personally reviewed the images, this actually appears to be a new finding or at least a major change from 6 weeks ago. - He underwent a repeat MRI of the lumbar spine today. Orthopedic spine surgery has been consulted. - Dr. Acosta consulted regarding likely osteomyelitis/diskitis, plan for surgical intervention of spine abscess - Discussed results of PET and MRI in detail with radiology. I have reviewed with patient and family and plan will be to begin Hormonal therapy and plan for chemoembolization of local hepatocellular cancer with q3 month Lupron after acute infectious process is resolved Current Visit: Yes Status: Acute Code(s): M54.5 - LOW BACK PAIN SNOMED Code(s): 61135978930030648 (2) Inferior vena cava thromboembolism Narrative/Plan: - Likely secondary to malignancy/cies. Was on xarelto as outpatient - Xarelto on hold for potential IR procedure of new finding in CT - Heparin Drip at this time. Current Visit: No Status: Acute Priority: High Code(s): I82.220 - ACUTE EMBOLISM AND THROMBOSIS OF INFERIOR VENA CAVA SNOMED Code(s): 519329944 (3) Hepatocellular carcinoma Narrative/Plan: - Appears to be localized likely candidate chemoembolization of liver, will need to address acute lumbarsacral infectious process prior to intervention for liver lesion. Current Visit: Yes Status: Acute Code(s): C22.0 - LIVER CELL CARCINOMA SNOMED Code(s): 893332105 (4) Prostate cancer Narrative/Plan: - As noted the patient had multiple prior prostate biopsies that were negative. The diagnosis was made via lymph node biopsy last month. PSA has been stable in the low 20 range. Current Visit: Yes Status: Acute Code(s): C61 - MALIGNANT NEOPLASM OF PROSTATE SNOMED Code(s): 408128351 (5) Osteomyelitis/Diskitis: Discussed everything above with daughter and and patient, all questions answered. Will await recs and expectations from ID. Discussion with family and patient today expressing that surgical intervention would be necessary related to infection/inflammation as well as, relief of pain. - Recommend further evaluation of tissue with his recent diagnoses of two primary malignancies, an underlying malignancy cannot completely be excluded without tissue of this area. He has had recent history of recurrent infections. - Planning surgery today, await cultures and path - Plan to begin Lupron for prostate cancer after discharge, will monitor PSA - Plan for cordination of chemo=embolization of hepatocellular local cancer after complete resolution of infection and healing from surgery, will work with Dr. Acosta to manage this time line efficiently.
--- NOTE | 2018-12-05 16:06 | XR ---
Limited lumbar spine HISTORY: Lumbar laminectomy Single intraoperative C-arm image documents the procedure.
--- NOTE | 2018-12-05 16:06 | FL ---
Fluoroscopy HISTORY: Needle placement, lumbar laminectomy 3 seconds fluoroscopy time supplied to the referring clinician. 1 intraoperative C-arm images docume nt the procedure. See dictated report from orthopedic surgery.
[2018-12-05] MEDS: SODIUM CHLORIDE 0.9% 1,000 ML IV SCH ×2 (16:32→23:08)
[2018-12-05 17:13] LABS: Glucose,Whole Blood 74 mg/dL (75-99)
[2018-12-05 20:03] LABS: Glucose,Whole Blood 73 mg/dL (75-99)
[2018-12-05] MEDS ORDERED: HEPARIN SODIUM,PORCINE 5,000 UNIT/ML 1 ML VIAL IV STA (23:57)
[2018-12-06] MEDS: HYDROmorphone 1 MG/ML 1 ML SYRINGE IVP PRN (00:25)
[2018-12-06] MEDS: HEPARIN SOD,PORK IN 0.45% NACL 25,000 UNIT in 0.45% NACL 1 250ML.BAG IV SCH ×2 (00:28→15:26)
[2018-12-06] MEDS: CEFEPIME 1 GM in SODIUM CHLORIDE 0.9% 50 ML IVPB SCH ×4 (00:49→23:31)
[2018-12-06] MEDS: oxyCODONE-APAP 7.5-325MG 1 EACH TAB PO PRN (02:38)
[2018-12-06] MEDS: SODIUM CHLORIDE 0.9% 1,000 ML IV SCH ×3 (04:30→23:06)
[2018-12-06 05:49] LABS: Basophils % (A) 0 %; Eosinophils # (A) 0.4 k/uL (0-0.7); Eosinophils % (A) 4 %; HCT 35.9 % (39.0-53.0); HGB 11.3 gm/dL (13.0-17.5); Lymphocytes # (A) 1.3 k/uL (1.0-4.8); Lymphocytes % (A) 15 %; MCH 27.7 pg (25.0-35.0); MCHC 31.4 g/dL (31.0-37.0); MCV 88.2 fL (80.0-100.0); Mean Platelet Volume 6.3; Monocytes # (A) 0.5 k/uL (0-1.0); Monocytes % (A) 6 %; Neutrophils # (A) 6.3 k/uL (1.3-7.7); Neutrophils % (A) 73 %; Platelet Count 215 k/uL (150-450); RBC 4.07 m/uL (4.30-5.90); RDW 15.6 % (11.5-15.5); WBC 8.6 k/uL (3.8-10.6)
[2018-12-06] MEDS: VANCOMYCIN 1,500 MG in SODIUM CHLORIDE 0.9% 250 ML IVPB SCH ×2 (05:57→17:52)
[2018-12-06] MEDS: LEVOTHYROXINE 100 MCG TAB PO SCH (05:57)
[2018-12-06 05:58] LABS: Anion Gap 4 mmol/L; Blood Urea Nitrogen 17 mg/dL (9-20); Calcium 9.3 mg/dL (8.4-10.2); Carbon Dioxide 28 mmol/L (22-30); Chloride 106 mmol/L (98-107); Glucose 104 mg/dL (74-99); Potassium 3.9 mmol/L (3.5-5.1); Sodium 138 mmol/L (137-145)
[2018-12-06] MEDS ORDERED: HYDROmorphone 0.5 MG/0.5 ML SYRINGE IVP PRN (06:05)
[2018-12-06] MEDS: HYDROmorphone 0.5 MG/0.5 ML SYRINGE IVP PRN ×3 (06:11→19:20)
[2018-12-06 07:13] LABS: Glucose,Whole Blood 84 mg/dL (75-99)
[2018-12-06] MEDS: CYCLOBENZAPRINE 5 MG TAB PO SCH ×3 (08:53→21:28)
[2018-12-06] MEDS: PANTOPRAZOLE 40 MG TABLET PO SCH (08:53)
[2018-12-06] MEDS: SENNOSIDES 8.6 MG TAB PO SCH ×2 (08:53→20:38)
[2018-12-06] MEDS: TAMSULOSIN 0.4 MG CAP.ER.24H PO SCH (08:53)
[2018-12-06] MEDS: ATENOLOL 25 MG TAB PO SCH (08:53)
--- NOTE | 2018-12-06 10:22 | P.PN ---
Progress Note - Text Progress Note Date: 12/06/18 Postoperative day #1 Patient is seen and examined today at bedside. The patient has some pain around the surgical site as expected. Pain is being controlled with medication. He had significant drainage on his dressing overnight and that has been changed. There is no active drainage now the dressing is clear. We stopped his heparin overnight while his incision was draining. He says he is still having some spasms in his back but it feels like it is more localized over the surgery site Physical Exam Afebrile with stable vital signs Abdomen is soft nontender. Chest has good excursion deep and space expiration The incision site is clean dry and intact. No erythema there is no purulence. No active drainage Extremities have not had neurologic change from prior to surgery. He has sustained dorsal flexion plantar flexion and EHL intact Calves and thighs were soft nontender without evidence of DVT. Assessment/Plan Postoperative day #1 status post decompression and discectomy with partial corpectomy of L4 5 for his epidural abscess with discitis and osteomyelitis Incidental durotomy at time of surgery status post repair, patient continuing on bedrest through tomorrow Patient is progressing as expected from the surgery. He was afebrile overnight and we're awaiting further cultures. He will continue his antibiotic management as per infectious disease We will continue the patient on bedrest with him flat in bed. He may lay on his side and with his legs elevated if he wishes but he needs to keep his head flat and not elevated. At this point we do not have plans for further surgical intervention but we'll follow his cultures closely as well as his wound healing . With his wound healing and the drainage stopped at this point it is okay for him to resume his heparin as per medicine today. We'll continue to follow patient closely.
[2018-12-06 10:46] VITALS: BMI 24.9
--- NOTE | 2018-12-06 10:51 | P.PN ---
Subjective Progress Note Date: 12/06/18 Principal diagnosis: New Dual Primary Malignancies, Increased pain. Status POst surgery, tolerated well, at bedside Objective - Vital Signs Vital signs: Vital Signs Temp 98.8 F 12/06/18 05:30 Pulse 60 12/06/18 05:30 Resp 16 12/06/18 05:30 BP 135/75 12/06/18 05:30 Pulse Ox 99 12/06/18 05:30 Intake & Output 12/05/18 12/06/18 12/06/18 18:59 06:59 18:59 Intake Total 1301 1398.341 Output Total 10 1400 Balance 1291 -1.659 Intake: IV 1301 Intake, IV Titration 858.341 Amount Heparin Sod,Pork in 0.45% 8.341 NaCl 25,000 unit In 0.45 % NaCl 1 250ml.bag @ 18 UNITS/KG/HR 14.58 mls/hr IV .Q17H9M [facility] Rx#: [id number] Sodium Chloride 0.9% 1, 600 000 ml @ 75 mls/hr IV . [id number] [facility] Rx#:[id number] Vancomycin 1,500 mg In 250 Sodium Chloride 0.9% 250 ml @ 125 mls/hr IVPB Q12H [facility] Rx#:[id number] Oral 540 Output: Urine 1400 Estimated Blood Loss 10 Other: Voiding Method Urinal Urinal # Voids 1 - Exam Constitutional General appearance: no acute distress - EENT Eyes: EOMI, PERRLA ENT: hearing grossly normal, normal oropharynx - Neck Neck: no lymphadenopathy Thyroid: bilateral: normal size - Respiratory Respiratory: bilateral: CTA - Cardiovascular Rhythm: regular Heart sounds: normal: S1, S2 - Gastrointestinal General gastrointestinal: normal bowel sounds, soft - Integumentary Integumentary: normal - Musculoskeletal Musculoskeletal: generalized weakness, strength equal bilaterally - Psychiatric Psychiatric: A&O x's 3, appropriate affect - Labs CBC & Chem 7: 12/06/18 05:37 12/06/18 05:37 Labs: Abnormal Lab Results - Last 24 Hours (Table) 12/05/18 12/05/18 12/06/18 Range/Units 17:11 20:01 05:37 RBC 4.07 L (4.30-5.90) m/uL Hgb 11.3 L (13.0-17.5) gm/dL Hct 35.9 L (39.0-53.0) % RDW 15.6 H (11.5-15.5) % APTT (22.0-30.0) sec Glucose (74-99) mg/dL POC Glucose (mg/dL) 74 L 73 L (75-99) mg/dL 12/06/18 12/06/18 Range/Units 05:37 05:37 RBC (4.30-5.90) m/uL Hgb (13.0-17.5) gm/dL Hct (39.0-53.0) % RDW (11.5-15.5) % APTT 30.6 H (22.0-30.0) sec Glucose 104 H (74-99) mg/dL POC Glucose (mg/dL) (75-99) mg/dL Microbiology - Last 24 Hours (Table) 12/05/18 14:16 Gram Stain - Preliminary Other - Other Wound Culture - Preliminary 12/05/18 14:16 Anaerobic Culture - Preliminary Other - Other Assessment and Plan Plan: (1) Intractable low back pain Narrative/Plan: - The patient had similar symptoms that his initial presentation last month, his MRI at that time indicating no evidence of malignancy. - The symptoms were felt to be due to the moderate to severe disc disease noted at L5 L6. - Treatment as poutpatient has been Narcotic and Steroid management, as well as , referral to PMR. They have not seen yet He is now presenting with progression in his symptoms. Repeat computed tomography scan at this time notes a possible paraspinal mass with destructive process, with differentials including malignancy as well as discitis with phlegmon. Based on the report, as well as personally reviewed the images, this actually appears to be a new finding or at least a major change from 6 weeks ago. - He underwent a repeat MRI of the lumbar spine today. Orthopedic spine surgery has been consulted. - Dr. Acosta consulted regarding likely osteomyelitis/diskitis, plan for surgical intervention of spine abscess - Discussed results of PET and MRI in detail with radiology. 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 Was on xarelto as outpatient - Xarelto on hold for potential IR procedure of new finding in CT - Heparin Drip at this time. Current Visit: No Status: Acute Priority: High Code(s): I82.220 - ACUTE EMBOLISM AND THROMBOSIS OF INFERIOR VENA CAVA SNOMED Code(s): 773041615 (3) Hepatocellular carcinoma Narrative/Plan: - Appears to be localized likely candidate chemoembolization of liver, will need to address acute lumbarsacral infectious process prior to intervention for liver lesion. Current Visit: Yes Status: Acute Code(s): C22.0 - LIVER CELL CARCINOMA SNOMED Code(s): 896736093 (4) Prostate cancer Narrative/Plan: - As noted the patient had multiple prior prostate biopsies that were negative. The diagnosis was made via lymph node biopsy last month. PSA has been stable in the low 20 range. Current Visit: Yes Status: Acute Code(s): C61 - MALIGNANT NEOPLASM OF PROSTATE SNOMED Code(s): 957735152 (5) Osteomyelitis/Diskitis: status Post Surgery 12/05/18. He may resume anticoagulation with heparin drip first 24-48 post op to ensure no bleeding, then will convert back to PO - Per Ortho ok to resume AC
[2018-12-06 11:43] LABS: Glucose,Whole Blood 89 mg/dL (75-99)
[2018-12-06] MEDS: HYDROcodone/APAP 5-325MG 1 EACH TAB PO PRN ×2 (13:48→21:38)
[2018-12-06] MEDS ORDERED: HEPARIN SODIUM,PORCINE 10,000 UNIT/ML 1 ML VIAL IV ONE (14:59)
[2018-12-06] MEDS ORDERED: HEPARIN SODIUM,PORCINE 5,000 UNIT/ML 1 ML VIAL IV PRN (14:59)
[2018-12-06 15:46] LABS: INR 1.1 (<1.2); Partial Thromboplastin Time 25.8 sec (22.0-30.0); Prothrombin Time 11.3 sec (9.0-12.0)
[2018-12-06 17:20] LABS: Glucose,Whole Blood 128 mg/dL (75-99)
--- NOTE | 2018-12-06 18:16 | P.PN ---
Subjective Progress Note Date: 12/06/18 Progress note being dictated for Dr. Minor. Interval history:83-year-old pleasant gentleman with history of prostate cancer as well as a hepatocellular carcinoma given comments of severe back pain patient had a recent MRI and PET scan patient back pain is uncontrollable no weakness no saddle anesthesia no but does have radicular symptoms radiating to both the hip both the hips and thighs. And, denied any nausea vomiting. Denied any fever chills. She did a lumbar spine CT which showed destructive changes in L4-L5 within evidence of paraspinal mass with evidence of acute and chronic discitis and possible phlegmon and mild spinal stenosis at L1 to L3 4. Patient was started on steroids anti-inflammatories and pain medications. I will call her in consult pain management and a spinal surgeon. 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 We'll Allsop an MRI of the lumbar spine. Patient does have extensive back history from his recent past because of his prostate cancer found to have discitis recently although there is a paraspinal mass or phlegmon is new. There is no evidence of port infection at this time I'll obtain a CBC basic metabolic profile. Patient will not be started on IV antibiotics but infectious causes are definitely in the differential. is unable to ablate because of severe pain in the back 12/03/17 patient has just returned from lumbar spine MRI this morning. States back pain controlled at rest, but significant pain with movement. Generalized equal weakness of bilateral lower extremities. Pain management, orthopedic surgery consulted with recommendations pending. Maintained on steroids, blood sugars controlled. Afebrile, normal WBC. Urine culture pending. Continues on IV antibiotics, heparin drip. ID consult in place. Denies chest pain, palpitations or shortness of breath. 12/04/2018. Pain controlled at rest, with movement, lower back pain radiates down right leg. States unable to stand up. Lumbar spine MRI demonstrated acute discitis/osteomyelitis at L4-L5 and to a lesser degree at L5 to S1 with associated elongated epidural abscess centered at the L4-L5 intravertebral disc space creating moderate spinal canal stenosis and severe neural foraminal narrowing at L4-L5 with nerve root impingement bilaterally, central disc herniation at L1-L2 resulting in moderate to severe left neural foraminal narrowing, moderate right neural foraminal narrowing and mild spinal canal stenosis, moderate to severe multilevel degenerative disc disease, diffuse osseous metastasis considered less likely, markedly enlarged prostate gland. Evaluated by pain management, infectious disease and orthopedic spine, recommendations noted. Brace ordered, pending. Orthopedics discussing surgical intervention.Afebrile, urine cultures reporting E. coli. 12/05/2018 no overnight events. Scheduled for surgery this morning. Afebrile, normal WBC.VSS, maintaining O2 sats in the mid 90s on room air. Currently pain controlled at rest. Denies chest pain, palpitations or shortness of breath. Denies lightheadedness dizziness or focal deficits. 12/06/2018 status post decompression and discectomy with partial corpectomy of L4-5, tolerated procedure well. During television presenter hours saturated initial surgical dressing, changed. Heparin drip placed on hold. Hemoglobin stable, 11.3. Afebrile, T-max 99, WBC within normal limits. Denies chest pain, palpitations or increasing shortness of breath. Maintained on IV antibiotics as per ID. Objective - Vital Signs Vital signs: Vital Signs Temp 98.6 F 12/06/18 15:30 Pulse 76 12/06/18 12:30 Resp 18 12/06/18 12:30 BP 115/66 12/06/18 12:30 Pulse Ox 98 12/06/18 12:30 Intake & Output 12/05/18 12/06/18 12/06/18 18:59 06:59 18:59 Intake Total 1301 1398.341 Output Total 10 1400 Balance 1291 -1.659 Weight 81 kg Intake: IV 1301 Intake, IV Titration 858.341 Amount Heparin Sod,Pork in 0.45% 8.341 NaCl 25,000 unit In 0.45 % NaCl 1 250ml.bag @ 18 UNITS/KG/HR 14.58 mls/hr IV .Q17H9M [facility] Rx#: [id number] Sodium Chloride 0.9% 1, 600 000 ml @ 75 mls/hr IV . [id number] [facility] Rx#:[id number] Vancomycin 1,500 mg In 250 Sodium Chloride 0.9% 250 ml @ 125 mls/hr IVPB Q12H [facility] Rx#:[id number] Oral 540 Output: Urine 1400 Estimated Blood Loss 10 Other: Voiding Method Urinal Urinal Urinal # Voids 1 - Exam GENERAL: The patient is lying flat in bed ,alert and oriented x3, no acute distress. HEENT: Pupils are round and equally reacting to light. EOMI. No scleral icterus. No conjunctival pallor. Normocephalic, atraumatic. Oral mucosa moist. CARDIOVASCULAR: S1 and S2 present. No murmurs, rubs, or gallops. PULMONARY: Chest is clear to auscultation, no wheezing or crackles. ABDOMEN: Soft, nontender, nondistended, normoactive bowel sounds. No palpable organomegaly. EXTREMITIES: No cyanosis, clubbing, or pedal edema. NEUROLOGICAL: Gross neurological examination did not reveal any focal deficits. Microbiology 12/05/18 14:16 Other - Other Gram Stain - Preliminary 12/05/18 14:16 Other - Other Wound Culture - Preliminary 12/05/18 14:16 Other - Other Anaerobic Culture - Preliminary 12/02/18 16:00 Urine,Voided Urine Culture - Final Escherichia coli - Labs CBC & Chem 7: 12/06/18 05:37 12/06/18 05:37 Labs: Abnormal Lab Results - Last 24 Hours (Table) 12/05/18 12/06/18 12/06/18 Range/Units 20:01 05:37 05:37 RBC 4.07 L (4.30-5.90) m/uL Hgb 11.3 L (13.0-17.5) gm/dL Hct 35.9 L (39.0-53.0) % RDW 15.6 H (11.5-15.5) % APTT (22.0-30.0) sec Glucose 104 H (74-99) mg/dL POC Glucose (mg/dL) 73 L (75-99) mg/dL 12/06/18 12/06/18 Range/Units 05:37 17:17 RBC (4.30-5.90) m/uL Hgb (13.0-17.5) gm/dL Hct (39.0-53.0) % RDW (11.5-15.5) % APTT 30.6 H (22.0-30.0) sec Glucose (74-99) mg/dL POC Glucose (mg/dL) 128 H (75-99) mg/dL Microbiology - Last 24 Hours (Table) 12/05/18 14:16 Gram Stain - Preliminary Other - Other Wound Culture - Preliminary 12/05/18 14:16 Anaerobic Culture - Preliminary Other - Other Assessment and Plan Assessment: -Intractable lower back pain and radicular pain.status post MRI of the lumbar spine, results noted; L4-5 and L5-S1 with acute discitis,osteomyelitis, lumbar epidural abscess, L4-5 spinal canal stenosis and neural foraminal stenosis.status post L4-5 laminectomy decompression and discectomy with partial corpectomy OF L4-5 for epidural abscess with discitis and osteomyelitis. Incidental durotomy, patient on strict BR, must lay flat as per orthopedic instructions thru tomorrow. 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 coli Plan: Continue on current medication regime , PPI, monitoring and symptomatic treatment.Strict BR, must lay flat until cleared by orthopedic surgery. Anticoagulation to be resumed as per oncology / Surgery. Continue on IV antibiotics. Pain management. Prognosis guarded given multiple complex medical issues. Further recommendations to follow. The impression and plan of care has been dictated as directed. : I performed a history and examination of this patient, discussed the same with the dictator. I agree with the dictator's note ,documented as a scribe. Any additional findings or plans will be noted.
[2018-12-06 20:57] LABS: Glucose,Whole Blood 97 mg/dL (75-99)
[2018-12-07] MEDS: HEPARIN SOD,PORK IN 0.45% NACL 25,000 UNIT in 0.45% NACL 1 250ML.BAG IV SCH ×2 (03:14→21:12)
[2018-12-07] MEDS: VANCOMYCIN 1,500 MG in SODIUM CHLORIDE 0.9% 250 ML IVPB SCH ×2 (06:06→17:08)
[2018-12-07] MEDS: LEVOTHYROXINE 100 MCG TAB PO SCH (06:09)
[2018-12-07] MEDS: HYDROmorphone 0.5 MG/0.5 ML SYRINGE IVP PRN (06:09)
[2018-12-07] MEDS: SODIUM CHLORIDE 0.9% 1,000 ML IV SCH (06:14)
[2018-12-07 07:14] LABS: Glucose,Whole Blood 100 mg/dL (75-99)
[2018-12-07] MEDS: PANTOPRAZOLE 40 MG TABLET PO SCH (07:28)
[2018-12-07] MEDS: HYDROcodone/APAP 5-325MG 1 EACH TAB PO PRN ×2 (07:28→12:28)
[2018-12-07 08:27] LABS: Basophils % (A) 0 %; Eosinophils # (A) 0.6 k/uL (0-0.7); Eosinophils % (A) 6 %; HCT 37.2 % (39.0-53.0); HGB 11.9 gm/dL (13.0-17.5); Hypochromasia Slight; Lymphocytes # (A) 1.6 k/uL (1.0-4.8); Lymphocytes % (A) 17 %; MCH 28.7 pg (25.0-35.0); MCV 89.8 fL (80.0-100.0); Mean Platelet Volume 6.9; Monocytes # (A) 0.6 k/uL (0-1.0); Monocytes % (A) 6 %; Neutrophils # (A) 6.2 k/uL (1.3-7.7); Neutrophils % (A) 68 %; Platelet Count 188 k/uL (150-450); RBC 4.15 m/uL (4.30-5.90); RDW 15.7 % (11.5-15.5); WBC 9.1 k/uL (3.8-10.6)
--- NOTE | 2018-12-07 08:29 | P.PN ---
Subjective Progress Note Date: 12/07/18 Principal diagnosis: Principal diagnoses: Status post L4-5 laminectomy and decompression with bilateral partial medial facetectomy and foraminotomy with irrigation and excisional debridement of epidural abscess with partial corpectomy of L4 osteomyelitis and repair of 2 mm incidental durotomy L4-5 and L5-S1 bony destructive changes compatible with acute discitis/ osteomyelitis Lumbar epidural abscess L4-5 spinal canal stenosis and neural foraminal stenosis Intractable low back pain Right lower extremity radiculopathy Hepatocellular cancer Prostate cancer Inability to ambulate due to pain 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 He is status post L4-5 laminectomy and decompression with bilateral partial medial facetectomy and foraminotomy with irrigation and excisional debridement of epidural abscess with partial corpectomy of L4 osteomyelitis and repair of 2 mm incidental durotomy. He states his pain is better controlled postoperatively. He does continue to have some pain at the surgical site. He feels his right lower extremity symptoms have had some improvement. He continues to be on bedrest with lying flat following repair of incidental durotomy. We discussed he will continue remain in bed and will be flat until tomorrow, 12/08/2018. He states he has been eating and voiding without difficulty. He has no new complaints of the bedside. He continues to be seen by Dr. Singletary in oncology, by Dr. Acosta in infectious disease, and by medicine. He continues to receive antibiotic treatment with vancomycin and cefepime. Patient history: He was previously seen and examined in the hospital in September 2018. Since that time he has had a significant exacerbation of back pain. He states his back pain is better controlled while lying flat in bed. Currently his pain is severe down the right lower extremity with increased ambulation and activities. He states following previous discharge from the hospital he felt he was doing fairly well until this past 12/01/2018. Prior to that time he was able to ambulate with the assistance of a walker. At his last visit imaging showed changes within the liver and he was waiting for liver biopsy after ultrasound results showed the liver was enlarged with 2 hypoechoic mass suspicious for metastatic disease. He was found to have hepatocellular carcinoma. Given his severe pain in his lumbar spine, a PET scan was performed on 12/01/2018. A CT of the lumbar spine has also been performed as well as an MRI of the lumbar spine. On imaging he was found to have bony destructive changes at L4-5 and L5-S1 with evidence of paraspinal mass consistent with acute discitis/osteomyelitis along with epidural abscess. These findings were not evident on previous imaging taken at his last admission in September 2018. Patient has continued to follow with Dr. Singletary in oncology. His symptoms have progressed as compared to his previous admittance to the hospital. Patient does have a history of prostate cancer. Objective - Vital Signs Vital signs: Vital Signs Temp 97.6 F 12/07/18 04:54 Pulse 76 12/07/18 04:54 Resp 18 12/07/18 04:54 BP 116/69 12/07/18 04:54 Pulse Ox 99 12/07/18 04:54 Intake & Output 12/06/18 12/07/18 12/07/18 18:59 06:59 18:59 Intake Total 1188.044 Output Total 500 Balance 688.044 Weight 81 kg Intake: IV 116 Heparin Sod,Pork in 0.45% 116 NaCl 25,000 unit In 0.45 % NaCl 1 250ml.bag @ 18 UNITS/KG/HR 14.58 mls/hr IV .Q17H9M [facility] Rx#: [id number] Intake, IV Titration 1072.044 Amount Cefepime 1 gm In Sodium 50 Chloride 0.9% 50 ml @ 100 mls/hr IVPB Q8HR [facility] Rx# :[id number] Heparin Sod,Pork in 0.45% 172.044 NaCl 25,000 unit In 0.45 % NaCl 1 250ml.bag @ 18 UNITS/KG/HR 14.58 mls/hr IV .Q17H9M [facility] Rx#: [id number] Sodium Chloride 0.9% 1, 600 000 ml @ 75 mls/hr IV . [id number] [facility] Rx#:[id number] Vancomycin 1,500 mg In 250 Sodium Chloride 0.9% 250 ml @ 125 mls/hr IVPB Q12H [facility] Rx#:[id number] Output: Urine 500 Other: Voiding Method Urinal Urinal - Exam Physical exam: Patient is awake, alert, and oriented 3 Vital signs stable Good chest excursion with deep inspiration and expiration Abdomen is soft nontender Patient is currently lying comfortably in bed Dorsiflexion, plantarflexion, and extensor hallucis longus positive sustained bilaterally Lower extremity strength 5/5 bilaterally Patient is able to lift legs independently in bed without but movements are somewhat slow No signs or symptoms of DVT; no calf pain No pain with internal and external rotation of the hips bilaterally Neurovascularly intact - Labs CBC & Chem 7: 12/06/18 05:37 12/06/18 05:37 Labs: Abnormal Lab Results - Last 24 Hours (Table) 12/06/18 12/06/18 12/07/18 Range/Units 17:17 21:20 07:13 APTT 51.0 H (22.0-30.0) sec POC Glucose (mg/dL) 128 H 100 H (75-99) mg/dL Microbiology - Last 24 Hours (Table) 12/05/18 14:16 Gram Stain - Preliminary Other - Other Wound Culture - Preliminary Gram Neg Bacilli 12/05/18 14:16 Anaerobic Culture - Preliminary Other - Other Assessment and Plan Assessment: Assessment: L4-5 laminectomy and decompression with bilateral partial medial facetectomy and foraminotomy with irrigation and excisional debridement of epidural abscess with partial corpectomy of L4 osteomyelitis and repair of 2 mm incidental durotomy L4-5 and L5-S1 bony destructive changes compatible with acute discitis/ osteomyelitis Lumbar epidural abscess L4-5 spinal canal stenosis and neural foraminal stenosis Intractable low back pain Right lower extremity radiculopathy Hepatocellular cancer Prostate cancer Inability to ambulate due to pain 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 (1) Discitis of lumbar region Current Visit: Yes Status: Acute Code(s): M46.46 - DISCITIS, UNSPECIFIED, LUMBAR REGION SNOMED Code(s): 679227990 (2) Lumbar stenosis Current Visit: Yes Status: Acute Code(s): M48.061 - SPINAL STENOSIS, LUMBAR REGION WITHOUT NEUROGENIC [place] SNOMED Code(s): 64862843 (3) Lumbar herniated disc Current Visit: Yes Status: Acute Code(s): M51.26 - OTHER INTERVERTEBRAL DISC DISPLACEMENT, LUMBAR REGION SNOMED Code(s): 541965322 (4) Epidural abscess Current Visit: Yes Status: Acute Code(s): G06.2 - EXTRADURAL AND SUBDURAL ABSCESS, UNSPECIFIED SNOMED Code(s): 54763776 (5) Hepatocellular carcinoma Current Visit: Yes Status: Acute Code(s): C22.0 - LIVER CELL CARCINOMA SNOMED Code(s): 378413375 (6) Intractable low back pain Current Visit: Yes Status: Acute Code(s): M54.5 - LOW BACK PAIN SNOMED Code(s): 97093882463818259 (7) Prostate cancer Current Visit: Yes Status: Acute Code(s): C61 - MALIGNANT NEOPLASM OF PROSTATE SNOMED Code(s): 039010455 (8) Inferior vena cava thromboembolism Current Visit: No Status: Acute Priority: High Code(s): I82.220 - ACUTE EMBOLISM AND THROMBOSIS OF INFERIOR VENA CAVA SNOMED Code(s): 405456192 Plan: Plan: 1. Patient is status post L4-5 laminectomy and decompression with bilateral partial medial facetectomy and foraminotomy with irrigation and excisional debridement of epidural abscess with partial corpectomy of L4 osteomyelitis and repair of 2 mm incidental durotomy. Following the repair of his incidental durotomy, patient will continue to remain on strict bed rest and must continue to lay flat in bed until tomorrow, 12/08/2018. Tomorrow we will plan to have him sit up and evaluate him for spinal headaches. If he does not experience any headaches at that time, we will begin to increase his mobility. If he starts to experience spinal headaches he will be put on bed rest for another 24- 48 hours before further evaluate him again for spinal headaches. He may elevate has legs. He may lay on his side. He must not sit up. Dressing to remain intact. Dressing may be changed if saturated when patient is laying on his side. 2. Patient will continue be seen in exam by medicine, infectious disease and oncology for his significant medical diagnoses; heparin drip has been restarted 3. Continue pain control medication as prescribed 4. Continue antibiotic treatment with vancomycin and cefepime as prescribed 5. We'll continue to follow patient closely Time with Patient: Less than 30
[2018-12-07 08:35] LABS: Anion Gap 6 mmol/L; Blood Urea Nitrogen 13 mg/dL (9-20); Calcium 9.3 mg/dL (8.4-10.2); Carbon Dioxide 23 mmol/L (22-30); Chloride 109 mmol/L (98-107); Glucose 104 mg/dL (74-99); Potassium 3.5 mmol/L (3.5-5.1); Sodium 138 mmol/L (137-145)
[2018-12-07] MEDS: CEFEPIME 1 GM in SODIUM CHLORIDE 0.9% 50 ML IVPB SCH ×3 (08:53→23:12)
[2018-12-07] MEDS: ATENOLOL 25 MG TAB PO SCH (08:54)
[2018-12-07] MEDS: TAMSULOSIN 0.4 MG CAP.ER.24H PO SCH (08:54)
[2018-12-07] MEDS: SENNOSIDES 8.6 MG TAB PO SCH ×2 (08:54→21:11)
[2018-12-07] MEDS: CYCLOBENZAPRINE 5 MG TAB PO SCH ×3 (08:55→21:12)
[2018-12-07] MEDS: HEPARIN SODIUM,PORCINE 5,000 UNIT/ML 1 ML VIAL IV PRN (09:10)
[2018-12-07 11:20] LABS: Glucose,Whole Blood 140 mg/dL (75-99)
[2018-12-07] MEDS: HYDROmorphone 4 MG TABLET PO PRN (16:01)
--- NOTE | 2018-12-07 16:36 | P.PN ---
Subjective Progress Note Date: 12/07/18 Very pleasant 83-year-old male is known to the infectious disease service because of his many bouts of very tract infection. The patient has a long-standing history of a very large prostate with difficulties with some urinary retention resulting urinary tract infection. Recent infection has been with E. coli with no oral options and is receiving a couple of courses of outpatient intravenous antibiotic therapy and has done well. In September he was hospitalized with some back pain evaluations were performed showing evidence of degenerative disease and with local care and treatment of urinary infection he improved. 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 Percutaneous biopsy at this facility was performed and was nondiagnostic. He was seen at [facility] also with nondiagnostic testing. He eventually was seen at [facility] where biopsy was successful of the liver which reveal evidence of adenocarcinoma , and there is also evidence of enlarged lymph nodes in the pelvis which were diagnostic of prostate carcinoma. The patient was receiving anticoagulation therapy and was in the midst of workup for his underlying cancers, outpatient PET scan had just been performed. If this workup was occurring the patient was having increasing amounts of back pain on the day of admission was no longer able to ambulate because his pain was so severe. This lady was brought into the hospital and workup has been initiated and he has now been seen by orthopedic spine in the infectious diseases consultation was initiated. The patient is now had the follow-up MRI reveals evidence of the destruction of L4-L5 which is new compared to the September 2018 MRI. With concerns to discitis and epidural abscess the consult was requested. 12/07/2018 patient has significant pain of the LS-spine from the recent surgery. He however is not having fevers or chills. Nursing relates he ate his lunch. But is having some confusion. Objective - Vital Signs Vital signs: Vital Signs Temp 97.5 F L 12/07/18 12:36 Pulse 71 12/07/18 12:36 Resp 18 12/07/18 12:36 BP 124/72 12/07/18 12:36 Pulse Ox 97 12/07/18 12:36 Intake & Output 12/06/18 12/07/18 12/07/18 18:59 06:59 18:59 Intake Total 1188.044 86.022 Output Total 500 550 Balance 688.044 -463.978 Weight 81 kg Intake: IV 116 Heparin Sod,Pork in 0.45% 116 NaCl 25,000 unit In 0.45 % NaCl 1 250ml.bag @ 18 UNITS/KG/HR 14.58 mls/hr IV .Q17H9M [facility] Rx#: [id number] Intake, IV Titration 1072.044 86.022 Amount Cefepime 1 gm In Sodium 50 Chloride 0.9% 50 ml @ 100 mls/hr IVPB Q8HR [facility] Rx# :[id number] Heparin Sod,Pork in 0.45% 172.044 86.022 NaCl 25,000 unit In 0.45 % NaCl 1 250ml.bag @ 18 UNITS/KG/HR 14.58 mls/hr IV .Q17H9M [facility] Rx#: [id number] Sodium Chloride 0.9% 1, 600 000 ml @ 75 mls/hr IV . [id number] [facility] Rx#:[id number] Vancomycin 1,500 mg In 250 Sodium Chloride 0.9% 250 ml @ 125 mls/hr IVPB Q12H [facility] Rx#:[id number] Output: Urine 500 550 Other: Voiding Method Urinal Urinal Urinal - Exam Pleasant 83-year-old male with pain medications is able to speak but is having severe pain postoperative HEENT: Anicteric conjunctiva are pink and moist nasal mucosa grossly intact without significant lesions, there is no thrush. Neck: The neck is supple without significant lymphadenopathy or thyromegaly. Lungs: Good bilateral air entry without significant crackles or wheezing. There is no significant bronchial sounds. There is no egophony or dullness. Heart: Regular rate and rhythm with an audible S1-S2, no S3 no S4. There is no significant murmur click or rub, PMI was nondisplaced. Abdomen: Minimally obese Positive bowel sounds soft and nontender without palpable masses or organomegaly. There was no guarding or rebound. Extremities: The upper extremities have excellent pulses they are symmetric, no significant petechiae or telangiectasia. No splinter hemorrhages were noted. Lower extremities without edema. Any attempt for manipulation of the lower extremities and back results in severe pain Neuro: Awake alert oriented to person place and time. There are no acute new gross focal sensory motor deficits. The patient has equal strength 5+ the bilateral lower extremities at the knee distally, attempts to evaluate strength into the hips and thighs is with severe pain. Upper extremity is 5+ and symmetric - Labs CBC & Chem 7: 12/07/18 07:57 12/07/18 07:57 Labs: Abnormal Lab Results - Last 24 Hours (Table) 12/06/18 12/06/18 12/07/18 Range/Units 17:17 21:20 07:13 RBC (4.30-5.90) m/uL Hgb (13.0-17.5) gm/dL Hct (39.0-53.0) % RDW (11.5-15.5) % APTT 51.0 H (22.0-30.0) sec Chloride (98-107) mmol/L Creatinine (0.66-1.25) mg/dL Glucose (74-99) mg/dL POC Glucose (mg/dL) 128 H 100 H (75-99) mg/dL 12/07/18 12/07/18 12/07/18 Range/Units 07:57 07:57 07:57 RBC 4.15 L (4.30-5.90) m/uL Hgb 11.9 L (13.0-17.5) gm/dL Hct 37.2 L (39.0-53.0) % RDW 15.7 H (11.5-15.5) % APTT 40.0 H (22.0-30.0) sec Chloride 109 H (98-107) mmol/L Creatinine 0.55 L (0.66-1.25) mg/dL Glucose 104 H (74-99) mg/dL POC Glucose (mg/dL) (75-99) mg/dL 12/07/18 12/07/18 Range/Units 11:18 15:11 RBC (4.30-5.90) m/uL Hgb (13.0-17.5) gm/dL Hct (39.0-53.0) % RDW (11.5-15.5) % APTT 49.1 H (22.0-30.0) sec Chloride (98-107) mmol/L Creatinine (0.66-1.25) mg/dL Glucose (74-99) mg/dL POC Glucose (mg/dL) 140 H (75-99) mg/dL Microbiology - Last 24 Hours (Table) 12/05/18 14:16 Gram Stain - Preliminary Other - Other Wound Culture - Preliminary Gram Neg Bacilli Laboratory Results WBC 9.1 k/uL (3.8-10.6) 12/07/18 07:57 RBC 4.15 m/uL (4.30-5.90) L 12/07/18 07:57 Hgb 11.9 gm/dL (13.0-17.5) L 12/07/18 07:57 Hct 37.2 % (39.0-53.0) L 12/07/18 07:57 MCV 89.8 fL (80.0-100.0) 12/07/18 07:57 MCH 28.7 pg (25.0-35.0) 12/07/18 07:57 MCHC 32.0 g/dL (31.0-37.0) 12/07/18 07:57 RDW 15.7 % (11.5-15.5) H 12/07/18 07:57 Plt Count 188 k/uL (150-450) 12/07/18 07:57 Neutrophils % 68 % 12/07/18 07:57 Lymphocytes % 17 % 12/07/18 07:57 Monocytes % 6 % 12/07/18 07:57 Eosinophils % 6 % 12/07/18 07:57 Basophils % 0 % 12/07/18 07:57 Neutrophils # 6.2 k/uL (1.3-7.7) 12/07/18 07:57 Lymphocytes # 1.6 k/uL (1.0-4.8) 12/07/18 07:57 Monocytes # 0.6 k/uL (0-1.0) 12/07/18 07:57 Eosinophils # 0.6 k/uL (0-0.7) 12/07/18 07:57 Basophils # 0.0 k/uL (0-0.2) 12/07/18 07:57 Hypochromasia Slight 12/07/18 07:57 PT 11.3 sec (9.0-12.0) 12/06/18 15:25 INR 1.1 (<1.2) 12/06/18 15:25 APTT 49.1 sec (22.0-30.0) H 12/07/18 15:11 Sodium 138 mmol/L (137-145) 12/07/18 07:57 Potassium 3.5 mmol/L (3.5-5.1) 12/07/18 07:57 Chloride 109 mmol/L (98-107) H 12/07/18 07:57 Carbon Dioxide 23 mmol/L (22-30) 12/07/18 07:57 Anion Gap 6 mmol/L 12/07/18 07:57 BUN 13 mg/dL (9-20) 12/07/18 07:57 Creatinine 0.55 mg/dL (0.66-1.25) L 12/07/18 07:57 Est GFR (CKD-EPI)AfAm >90 (>60 ml/min/1.73 sqM) 12/07/18 07:57 Est GFR (CKD-EPI)NonAf >90 (>60 ml/min/1.73 sqM) 12/07/18 07:57 Glucose 104 mg/dL (74-99) H 12/07/18 07:57 POC Glucose (mg/dL) 140 mg/dL (75-99) H 12/07/18 11:18 POC Glu Hris Analyst ID Loreta Metz 12/07/18 11:[address] Glu mg/dL 131 12/02/18 12:44 Hemoglobin A1c 6.2 % (4.0-6.0) H 12/02/18 12:44 Calcium 9.3 mg/dL (8.4-10.2) 12/07/18 07:57 Total Bilirubin 0.5 mg/dL (0.2-1.3) 12/04/18 03:05 Conjugated Bilirubin 0.0 mg/dL (0.0-0.3) 12/03/18 09:00 Unconjugated Bilirubin 0.5 mg/dL (0.0-1.1) 12/03/18 09:00 Delta Bilirubin 0.2 mg/dL (0.0-0.2) 12/03/18 09:00 AST 17 U/L (17-59) 12/04/18 03:05 ALT 25 U/L (21-72) 12/04/18 03:05 Alkaline Phosphatase 81 U/L (38-126) 12/04/18 03:05 Total Protein 6.1 g/dL (6.3-8.2) L 12/04/18 03:05 Albumin 2.9 g/dL (3.5-5.0) L 12/04/18 03:05 Tumor Marker AFP <2.5 ng/mL (0.0-7.9) 12/03/18 09:00 Free PSA TNP 12/03/18 09:00 % Free PSA TNP 12/03/18 09:00 Total PSA 20.6 ng/mL (<=4.0) H 12/03/18 09:00 Urine Color Yellow 12/02/18 16:00 Urine Appearance Cloudy (Clear) 12/02/18 16:00 Urine pH 6.0 (5.0-8.0) 12/02/18 16:00 Ur Specific [place] 1.015 (1.001-1.035) 12/02/18 16:00 Urine Protein 1+ (Negative) H 12/02/18 16:00 Urine Glucose (UA) Negative (Negative) 12/02/18 16:00 Urine Ketones Negative (Negative) 12/02/18 16:00 Urine Blood Moderate (Negative) H 12/02/18 16:00 Urine Nitrite Positive (Negative) 12/02/18 16:00 Urine Bilirubin Negative (Negative) 12/02/18 16:00 Urine Urobilinogen <2.0 mg/dL (<2.0) 12/02/18 16:00 Ur Leukocyte Esterase Large (Negative) H 12/02/18 16:00 Urine RBC 28 /hpf (0-5) H 12/02/18 16:00 Urine WBC 155 /hpf (0-5) H 12/02/18 16:00 Urine WBC Clumps Few /hpf (None) H 12/02/18 16:00 Urine Bacteria Moderate /hpf (None) H 12/02/18 16:00 Urine Mucus Few /hpf (None) H 12/02/18 16:00 Vancomycin Trough 14.9 ug/mL 12/05/18 05:44 Blood Type O Positive 12/05/18 09:20 Blood Type Confirm O Positive 12/05/18 05:44 Blood Type Recheck CABO Indicated 12/05/18 09:20 Antibody Screen NEGATIVE 12/05/18 09:20 Spec Expiration Date 12/08/2018 8094 12/05/18 09:20 Microbiology 12/05/18 14:16 Other - Other Gram Stain - Preliminary 12/05/18 14:16 Other - Other Wound Culture - Preliminary Gram Neg Bacilli 12/05/18 14:16 Other - Other Anaerobic Culture - Preliminary 12/02/18 16:00 Urine,Voided Urine Culture - Final Escherichia coli Assessment and Plan (1) Chronic back pain Current Visit: Yes Status: Acute Code(s): M54.9 - DORSALGIA, UNSPECIFIED; G89.29 - OTHER CHRONIC PAIN SNOMED Code(s): 979048530 (2) Discitis of lumbar region Current Visit: Yes Status: Acute Code(s): M46.46 - DISCITIS, UNSPECIFIED, LUMBAR REGION SNOMED Code(s): 358300425 (3) E. coli urinary tract infection Narrative/Plan: 83-year-old male known to the infectious disease service for his audible bouts of urinary tract infections with multidrug resistant Escherichia coli who now presents to hospital with irretractable back pain. He hashad troubles with back pain in the past and has had workup performed. With the inferior vena cava clot workup then was performed for an underlying malignancy and it does appear that there is evidence of the hepatocellular carcinoma the liver as well as of the prostate carcinoma as noted by the lymph nodes in the pelvis. 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 Patient however now is developed the progressive and severe back pain to the point in time where he is no longer able to ambulate. The MRI reveals evidence of the extensive destruction to L4-L5 with the evidence of fluid in the intervertebral space consistent with infection as well as a small epidural abscess. The patient has been seen by orthopedic spine. The patient has significant physical symptoms and significant other pathology. I agree at this point in time that a surgical intervention would be of great utility in that it would give likely relief of pain by stabilization of the spine. It also give deep tissue cultures and pathology to further evaluate this lesion. With his multiple urinary tract infections it is possible that this could even be an E. coli infection within the space. The possibility of malignancy in this area is not completely excluded the possibility of malignancy and secondary infection is also of concern. Then vancomycin also added at this time pending further information given the evidence of the epidural abscess.Await further culture results and surgical data to further define the overall course of therapy. 12/07/2018 patient's postoperative other than postoperative pain seems to be relatively well. Currently receiving Maxipime and vancomycin. When the culture from the surgical site has come back as complete if no gram-positive organs or from the vancomycin may be discontinued. He will plan on leaving the hospital on intravenous antibiotic therapy likely Merrem is likely more cost effective and Maxipime Current Visit: Yes Status: Acute Code(s): N39.0 - URINARY TRACT INFECTION, SITE NOT SPECIFIED; B96.20 - UNSP ESCHERICHIA COLI THE CAUSE OF DISEASES CLASSD [facility] SNOMED Code(s): 180644213 (4) Prostate cancer Current Visit: Yes Status: Acute Code(s): C61 - MALIGNANT NEOPLASM OF PROSTATE SNOMED Code(s): 691829237 (5) Hepatocellular carcinoma Current Visit: Yes Status: Acute Code(s): C22.0 - LIVER CELL CARCINOMA SNOMED Code(s): 101449056
--- NOTE | 2018-12-07 16:39 | P.PN ---
Subjective Progress Note Date: 12/07/18 Principal diagnosis: New Dual Primary Malignancies, Increased pain. Feeling better each day. Gram Negative Bacilli growing this far from wound. Objective - Vital Signs Vital signs: Vital Signs Temp 97.5 F L 12/07/18 12:36 Pulse 71 12/07/18 12:36 Resp 18 12/07/18 12:36 BP 124/72 12/07/18 12:36 Pulse Ox 97 12/07/18 12:36 Intake & Output 12/06/18 12/07/18 12/07/18 18:59 06:59 18:59 Intake Total 1188.044 86.022 Output Total 500 550 Balance 688.044 -463.978 Weight 81 kg Intake: IV 116 Heparin Sod,Pork in 0.45% 116 NaCl 25,000 unit In 0.45 % NaCl 1 250ml.bag @ 18 UNITS/KG/HR 14.58 mls/hr IV .Q17H9M [facility] Rx#: [id number] Intake, IV Titration 1072.044 86.022 Amount Cefepime 1 gm In Sodium 50 Chloride 0.9% 50 ml @ 100 mls/hr IVPB Q8HR [facility] Rx# :[id number] Heparin Sod,Pork in 0.45% 172.044 86.022 NaCl 25,000 unit In 0.45 % NaCl 1 250ml.bag @ 18 UNITS/KG/HR 14.58 mls/hr IV .Q17H9M [facility] Rx#: [id number] Sodium Chloride 0.9% 1, 600 000 ml @ 75 mls/hr IV . [id number] [facility] Rx#:[id number] Vancomycin 1,500 mg In 250 Sodium Chloride 0.9% 250 ml @ 125 mls/hr IVPB Q12H [facility] Rx#:[id number] Output: Urine 500 550 Other: Voiding Method Urinal Urinal Urinal - Exam Constitutional General appearance: no acute distress - EENT Eyes: EOMI, PERRLA ENT: hearing grossly normal, normal oropharynx - Neck Neck: no lymphadenopathy Thyroid: bilateral: normal size - Respiratory Respiratory: bilateral: CTA - Cardiovascular Rhythm: regular Heart sounds: normal: S1, S2 - Gastrointestinal General gastrointestinal: normal bowel sounds, soft - Integumentary Integumentary: normal - Musculoskeletal Musculoskeletal: generalized weakness, strength equal bilaterally - Psychiatric Psychiatric: A&O x's 3, appropriate affect - Labs CBC & Chem 7: 12/07/18 07:57 12/07/18 07:57 Labs: Abnormal Lab Results - Last 24 Hours (Table) 12/06/18 12/06/18 12/07/18 Range/Units 17:17 21:20 07:13 RBC (4.30-5.90) m/uL Hgb (13.0-17.5) gm/dL Hct (39.0-53.0) % RDW (11.5-15.5) % APTT 51.0 H (22.0-30.0) sec Chloride (98-107) mmol/L Creatinine (0.66-1.25) mg/dL Glucose (74-99) mg/dL POC Glucose (mg/dL) 128 H 100 H (75-99) mg/dL 12/07/18 12/07/18 12/07/18 Range/Units 07:57 07:57 07:57 RBC 4.15 L (4.30-5.90) m/uL Hgb 11.9 L (13.0-17.5) gm/dL Hct 37.2 L (39.0-53.0) % RDW 15.7 H (11.5-15.5) % APTT 40.0 H (22.0-30.0) sec Chloride 109 H (98-107) mmol/L Creatinine 0.55 L (0.66-1.25) mg/dL Glucose 104 H (74-99) mg/dL POC Glucose (mg/dL) (75-99) mg/dL 12/07/18 12/07/18 Range/Units :18 15:11 RBC (4.30-5.90) m/uL Hgb (13.0-17.5) gm/dL Hct (39.0-53.0) % RDW (11.5-15.5) % APTT 49.1 H (22.0-30.0) sec Chloride (98-107) mmol/L Creatinine (0.66-1.25) mg/dL Glucose (74-99) mg/dL POC Glucose (mg/dL) 140 H (75-99) mg/dL Microbiology - Last 24 Hours (Table) 12/05/18 14:16 Gram Stain - Preliminary Other - Other Wound Culture - Preliminary Gram Neg Bacilli Assessment and Plan Plan: (1) Intractable low back pain Narrative/Plan: - The patient had similar symptoms that his initial presentation last month, his MRI at that time indicating no evidence of malignancy. - The symptoms were felt to be due to the moderate to severe disc disease noted at L5 L6. - Treatment as outpatient has been Narcotic and Steroid management, as well as , referral to PMR. They have not seen yet He is now presenting with progression in his symptoms. Repeat computed tomography scan at this time notes a possible paraspinal mass with destructive process, with differentials including malignancy as well as discitis with phlegmon. Based on the report, as well as personally reviewed the images, this actually appears to be a new finding or at least a major change from 6 weeks ago. - He is status post procedure with Orthopedic spine surgery - Dr. Acosta consulted regarding likely osteomyelitis/diskitis, plan for surgical intervention of spine abscess - Discussed results of PET and MRI in detail with radiology. 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 Was on xarelto as outpatient - Heparin Drip at this time, as long as no post op bleeding and ok with ortho will convert Current Visit: No Status: Acute Priority: High Code(s): I82.220 - ACUTE EMBOLISM AND THROMBOSIS OF INFERIOR VENA CAVA SNOMED Code(s): 472759137 (3) Hepatocellular carcinoma Narrative/Plan: - Appears to be localized likely candidate chemoembolization of liver, will need to address acute lumbarsacral infectious process prior to intervention for liver lesion. Current Visit: Yes Status: Acute Code(s): C22.0 - LIVER CELL CARCINOMA SNOMED Code(s): 377820117 (4) Prostate cancer Narrative/Plan: - As noted the patient had multiple prior prostate biopsies that were negative. The diagnosis was made via lymph node biopsy last month. PSA has been stable in the low 20 range. 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 He may resume anticoagulation with heparin drip first 24-48 post op to ensure no bleeding, then will convert back to PO / - Per Ortho ok to resume AC, resumed Heparin drip on 12/07/18 - Awaiting Cultures to fully result from wound and Pathology: - Gram Negative Bacilli in wound (6) Ecoli UTI - Recurrent: - Massive prostate and new diagnosis of prostate cancer
[2018-12-07 17:17] LABS: Glucose,Whole Blood 128 mg/dL (75-99)
[2018-12-07] MEDS ORDERED: Potassium Replacement Protocol 1 EACH MISC MISCELLANE PRN (18:45)
--- NOTE | 2018-12-07 18:51 | P.PN ---
Subjective Progress Note Date: 12/07/18 Progress note being dictated for Dr. Minor. Interval history:83-year-old pleasant gentleman with history of prostate cancer as well as a hepatocellular carcinoma given comments of severe back pain patient had a recent MRI and PET scan patient back pain is uncontrollable no weakness no saddle anesthesia no but does have radicular symptoms radiating to both the hip both the hips and thighs. And, denied any nausea vomiting. Denied any fever chills. She did a lumbar spine CT which showed destructive changes in L4-L5 within evidence of paraspinal mass with evidence of acute and chronic discitis and possible phlegmon and mild spinal stenosis at L1 to L3 4. Patient was started on steroids anti-inflammatories and pain medications. I will call her in consult pain management and a spinal surgeon. 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 We'll All[facility] an MRI of the lumbar spine. Patient does have extensive back history from his recent past because of his prostate cancer found to have discitis recently although there is a paraspinal mass or phlegmon is new. There is no evidence of port infection at this time I'll obtain a CBC basic metabolic profile. Patient will not be started on IV antibiotics but infectious causes are definitely in the differential. is unable to ablate because of severe pain in the back 12/03/17 patient has just returned from lumbar spine MRI this morning. States back pain controlled at rest, but significant pain with movement. Generalized equal weakness of bilateral lower extremities. Pain management, orthopedic surgery consulted with recommendations pending. Maintained on steroids, blood sugars controlled. Afebrile, normal WBC. Urine culture pending. Continues on IV antibiotics, heparin drip. ID consult in place. Denies chest pain, palpitations or shortness of breath. 12/04/2018. Pain controlled at rest, with movement, lower back pain radiates down right leg. States unable to stand up. Lumbar spine MRI demonstrated acute discitis/osteomyelitis at L4-L5 and to a lesser degree at L5 to S1 with associated elongated epidural abscess centered at the L4-L5 intravertebral disc space creating moderate spinal canal stenosis and severe neural foraminal narrowing at L4-L5 with nerve root impingement bilaterally, central disc herniation at L1-L2 resulting in moderate to severe left neural foraminal narrowing, moderate right neural foraminal narrowing and mild spinal canal stenosis, moderate to severe multilevel degenerative disc disease, diffuse osseous metastasis considered less likely, markedly enlarged prostate gland. Evaluated by pain management, infectious disease and orthopedic spine, recommendations noted. Brace ordered, pending. Orthopedics discussing surgical intervention.Afebrile, urine cultures reporting E. coli. 12/05/2018 no overnight events. Scheduled for surgery this morning. Afebrile, normal WBC.VSS, maintaining O2 sats in the mid 90s on room air. Currently pain controlled at rest. Denies chest pain, palpitations or shortness of breath. Denies lightheadedness dizziness or focal deficits. 12/06/2018 status post decompression and discectomy with partial corpectomy of L4-5, tolerated procedure well. During behavioral consultant hours saturated initial surgical dressing, changed. Heparin drip placed on hold. Hemoglobin stable, 11.3. Afebrile, T-max 99, WBC within normal limits. Denies chest pain, palpitations or increasing shortness of breath. Maintained on IV antibiotics as per ID. 12/07 remains on bedrest with laying flat restrictions. Pain control improved at rest. Afebrile, normal WBC. Wound culture growing gram-negative bacilli. Maintained on IV antibiotics as per infectious disease. Potassium 3.5. Blood sugars controlled. Heparin drip has been resumed as per surgery and oncology/hematology. Objective - Vital Signs Vital signs: Vital Signs Temp 97.5 F L 12/07/18 12:36 Pulse 71 12/07/18 12:36 Resp 18 12/07/18 12:36 BP 124/72 12/07/18 12:36 Pulse Ox 97 12/07/18 12:36 Intake & Output 12/06/18 12/07/18 12/07/18 18:59 06:59 18:59 Intake Total 1188.044 86.022 Output Total 500 550 Balance 688.044 -463.978 Weight 81 kg Intake: IV 116 Heparin Sod,Pork in 0.45% 116 NaCl 25,000 unit In 0.45 % NaCl 1 250ml.bag @ 18 UNITS/KG/HR 14.58 mls/hr IV .Q17H9M [facility] Rx#: [id number] Intake, IV Titration 1072.044 86.022 Amount Cefepime 1 gm In Sodium 50 Chloride 0.9% 50 ml @ 100 mls/hr IVPB Q8HR [facility] Rx# :[id number] Heparin Sod,Pork in 0.45% 172.044 86.022 NaCl 25,000 unit In 0.45 % NaCl 1 250ml.bag @ 18 UNITS/KG/HR 14.58 mls/hr IV .Q17H9M [facility] Rx#: [id number] Sodium Chloride 0.9% 1, 600 000 ml @ 75 mls/hr IV . [id number] [facility] Rx#:[id number] Vancomycin 1,500 mg In 250 Sodium Chloride 0.9% 250 ml @ 125 mls/hr IVPB Q12H [facility] Rx#:[id number] Output: Urine 500 550 Other: Voiding Method Urinal Urinal Urinal - Exam GENERAL: The patient is lying flat in bed ,alert and oriented x3, no acute distress. at bedside. HEENT: Pupils are round and equally reacting to light. EOMI. No scleral icterus. No conjunctival pallor. Normocephalic, atraumatic. Oral mucosa moist. CARDIOVASCULAR: S1 and S2 present. No murmurs, rubs, or gallops. PULMONARY: Chest is clear to auscultation, no wheezing or crackles. ABDOMEN: Soft, nontender, nondistended, normoactive bowel sounds. No palpable organomegaly. EXTREMITIES: No cyanosis, clubbing, or pedal edema. NEUROLOGICAL: Gross neurological examination did not reveal any focal deficits. Microbiology 12/05/18 14:16 Other - Other Gram Stain - Preliminary 12/05/18 14:16 Other - Other Wound Culture - Preliminary Gram Neg Bacilli 12/05/18 14:16 Other - Other Anaerobic Culture - Preliminary 12/02/18 16:00 Urine,Voided Urine Culture - Final Escherichia coli - Labs CBC & Chem 7: 12/07/18 07:57 12/07/18 07:57 Labs: Abnormal Lab Results - Last 24 Hours (Table) 12/06/18 12/07/18 12/07/18 Range/Units 21:20 07:13 07:57 RBC 4.15 L (4.30-5.90) m/uL Hgb 11.9 L (13.0-17.5) gm/dL Hct 37.2 L (39.0-53.0) % RDW 15.7 H (11.5-15.5) % APTT 51.0 H (22.0-30.0) sec Chloride (98-107) mmol/L Creatinine (0.66-1.25) mg/dL Glucose (74-99) mg/dL POC Glucose (mg/dL) 100 H (75-99) mg/dL 12/07/18 12/07/18 12/07/18 Range/Units 07:57 07:57 11:18 RBC (4.30-5.90) m/uL Hgb (13.0-17.5) gm/dL Hct (39.0-53.0) % RDW (11.5-15.5) % APTT 40.0 H (22.0-30.0) sec Chloride 109 H (98-107) mmol/L Creatinine 0.55 L (0.66-1.25) mg/dL Glucose 104 H (74-99) mg/dL POC Glucose (mg/dL) 140 H (75-99) mg/dL 12/07/18 12/07/18 Range/Units 15:11 17:14 RBC (4.30-5.90) m/uL Hgb (13.0-17.5) gm/dL Hct (39.0-53.0) % RDW (11.5-15.5) % APTT 49.1 H (22.0-30.0) sec Chloride (98-107) mmol/L Creatinine (0.66-1.25) mg/dL Glucose (74-99) mg/dL POC Glucose (mg/dL) 128 H (75-99) mg/dL Microbiology - Last 24 Hours (Table) 12/05/18 14:16 Gram Stain - Preliminary Other - Other Wound Culture - Preliminary Gram Neg Bacilli Assessment and Plan Assessment: -Intractable lower back pain and radicular pain.status post MRI of the lumbar spine, results noted; L4-5 and L5-S1 with acute discitis,osteomyelitis, lumbar epidural abscess, L4-5 spinal canal stenosis and neural foraminal stenosis.status post L4-5 laminectomy decompression and discectomy with partial corpectomy OF L4-5 for epidural abscess with discitis and osteomyelitis. Incidental durotomy, patient on strict BR, must lay flat as per orthopedic instructions. 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 coli, recurrent Plan: Continue on current medication regime , monitoring and symptomatic treatment.Pain management. Continue on PPI, strict BR,lying flat until cleared by orthopedic surgery. Heparin drip resumed as per oncology / Surgery. Close monitoring of electrolytes, H&H with repeat labs ordered for a.m. maintain IV antibiotics as per infectious disease with close monitoring of cultures. Prognosis guarded given multiple complex medical issues. Further recommendations to follow. The impression and plan of care has been dictated as directed. : I performed a history and examination of this patient, discussed the same with the dictator. I agree with the dictator's note ,documented as a scribe. Any additional findings or plans will be noted.
[2018-12-07] MEDS: HYDROmorphone 2 MG TAB PO PRN (21:12)
[2018-12-08] MEDS: SODIUM CHLORIDE 0.9% 1,000 ML IV SCH ×3 (01:39→16:44)
[2018-12-08] MEDS: HYDROmorphone 2 MG TAB PO PRN (02:39)
[2018-12-08] MEDS ORDERED: VANCOMYCIN TROUGH DUE 1 EACH MISC MISCELLANE ONE (05:00)
[2018-12-08 05:38] LABS: Basophils % (A) 0 %; Eosinophils # (A) 0.4 k/uL (0-0.7); Eosinophils % (A) 4 %; HCT 35.1 % (39.0-53.0); HGB 11.5 gm/dL (13.0-17.5); Lymphocytes # (A) 1.4 k/uL (1.0-4.8); Lymphocytes % (A) 15 %; MCH 28.1 pg (25.0-35.0); MCHC 32.8 g/dL (31.0-37.0); MCV 85.6 fL (80.0-100.0); Mean Platelet Volume 6.5; Monocytes # (A) 0.5 k/uL (0-1.0); Monocytes % (A) 6 %; Neutrophils % (A) 74 %; Platelet Count 233 k/uL (150-450); RDW 15.7 % (11.5-15.5); WBC 9.6 k/uL (3.8-10.6)
[2018-12-08] MEDS: VANCOMYCIN 1,500 MG in SODIUM CHLORIDE 0.9% 250 ML IVPB SCH (05:46)
[2018-12-08] MEDS: LEVOTHYROXINE 100 MCG TAB PO SCH (05:57)
[2018-12-08 06:01] LABS: Anion Gap 8 mmol/L; Blood Urea Nitrogen 9 mg/dL (9-20); Calcium 9.4 mg/dL (8.4-10.2); Carbon Dioxide 25 mmol/L (22-30); Chloride 103 mmol/L (98-107); Glucose 112 mg/dL (74-99); Potassium 2.9 mmol/L (3.5-5.1); Sodium 136 mmol/L (137-145)
[2018-12-08] MEDS: ATENOLOL 25 MG TAB PO SCH (09:01)
[2018-12-08] MEDS: PANTOPRAZOLE 40 MG TABLET PO SCH (09:01)
[2018-12-08] MEDS: TAMSULOSIN 0.4 MG CAP.ER.24H PO SCH (09:01)
[2018-12-08] MEDS: SENNOSIDES 8.6 MG TAB PO SCH ×2 (09:01→19:51)
[2018-12-08] MEDS: CYCLOBENZAPRINE 5 MG TAB PO SCH ×3 (09:03→19:51)
[2018-12-08] MEDS: HEPARIN SODIUM,PORCINE 5,000 UNIT/ML 1 ML VIAL IV PRN (09:03)
[2018-12-08] MEDS: HYDROmorphone 4 MG TABLET PO PRN ×2 (11:17→19:50)
[2018-12-08] MEDS: CEFEPIME 1 GM in SODIUM CHLORIDE 0.9% 50 ML IVPB SCH ×2 (11:17→16:36)
--- NOTE | 2018-12-08 11:40 | P.PN ---
Subjective Progress Note Date: 12/08/18 Principal diagnosis: Status post laminectomy discectomy L4 5 with irrigation and debridement of epidural abscess. Discitis. L4 osteomyelitis. Patient is a very pleasant 83-year-old male who is well known to our service who is seen and examined at the bedside for follow-up evaluation in regards to his intractable back pain and right lower extremity radiculopathy. He is status post L4-5 laminectomy and decompression with bilateral partial medial facetectomy and foraminotomy with irrigation and excisional debridement of epidural abscess with partial corpectomy of L4 osteomyelitis and repair of 2 mm incidental durotomy. He states his pain is better controlled postoperatively. He does continue to have some pain at the surgical site. He feels his right lower extremity symptoms have had some improvement. With multiple attempts to get the patient upright, he complains of back and upper leg pain. He has no complaint of headache or neck pain. Nursing reports some confusion this morning. Objective - Vital Signs Vital signs: Vital Signs Temp 98 F 12/08/18 07:50 Pulse 93 12/08/18 07:50 Resp 20 12/08/18 07:50 BP 131/80 12/08/18 07:50 Pulse Ox 96 12/08/18 07:50 Intake & Output 12/07/18 12/08/18 12/08/18 18:59 06:59 18:59 Intake Total 86.022 163.978 195.603 Output Total 550 Balance -463.978 163.978 195.603 Weight 81 kg Intake: Intake, IV Titration 86.022 163.978 195.603 Amount Heparin Sod,Pork in 0.45% 86.022 163.978 195.603 NaCl 25,000 unit In 0.45 % NaCl 1 250ml.bag @ 18 UNITS/KG/HR 14.58 mls/hr IV .Q17H9M [facility] Rx#: [id number] Output: Urine 550 Other: Voiding Method Urinal Urinal Urinal - Exam This is a pleasant 83-year-old male in no acute distress. He is alert and oriented at this time. He does admit to having some confusion but is able to recall recent events and is alert to person and place. Exam of the lower extremities reveals no obvious deformity. He has full hip, knee, foot and ankle motion in bed without difficulty or pain. Neurovascular status to the lower extremities is intact. - Labs CBC & Chem 7: 12/08/18 05:26 12/08/18 05:26 Labs: Abnormal Lab Results - Last 24 Hours (Table) 12/07/18 12/07/18 12/08/18 Range/Units 15:11 17:14 05:26 RBC 4.10 L (4.30-5.90) m/uL Hgb 11.5 L (13.0-17.5) gm/dL Hct 35.1 L (39.0-53.0) % RDW 15.7 H (11.5-15.5) % APTT 49.1 H (22.0-30.0) sec Sodium (137-145) mmol/L Potassium (3.5-5.1) mmol/L Creatinine (0.66-1.25) mg/dL Glucose (74-99) mg/dL POC Glucose (mg/dL) 128 H (75-99) mg/dL 12/08/18 12/08/18 Range/Units 05:26 05:26 RBC (4.30-5.90) m/uL Hgb (13.0-17.5) gm/dL Hct (39.0-53.0) % RDW (11.5-15.5) % APTT 40.1 H (22.0-30.0) sec Sodium 136 L (137-145) mmol/L Potassium 2.9 L (3.5-5.1) mmol/L Creatinine 0.57 L (0.66-1.25) mg/dL Glucose 112 H (74-99) mg/dL POC Glucose (mg/dL) (75-99) mg/dL Microbiology - Last 24 Hours (Table) 12/05/18 14:16 Gram Stain - Final Other - Other Wound Culture - Final Escherichia coli Assessment and Plan (1) History of lumbar laminectomy for spinal cord decompression Current Visit: Yes Status: Acute Code(s): Z98.890 - OTHER SPECIFIED POSTPROCEDURAL STATES SNOMED Code(s): 087113175 (2) Discitis of lumbar region Current Visit: Yes Status: Acute Code(s): M46.46 - DISCITIS, UNSPECIFIED, LUMBAR REGION SNOMED Code(s): 811005643 (3) Epidural abscess Current Visit: Yes Status: Acute Code(s): G06.2 - EXTRADURAL AND SUBDURAL ABSCESS, UNSPECIFIED SNOMED Code(s): 81637536 (4) Intractable low back pain Current Visit: Yes Status: Acute Code(s): M54.5 - LOW BACK PAIN SNOMED Code(s): 69723999012204542 (5) Lumbar back pain Current Visit: Yes Status: Acute Code(s): M54.5 - LOW BACK PAIN SNOMED Code(s): 681809372 Plan: The clinical findings are discussed the patient and nursing staff. I encouraged him to continue to try to elevate the head of the bed slowly and progressively knowing that he may have some low back discomfort. Continue IV antibiotics per infectious disease. We will continue to follow orthopedically.
[2018-12-08] MEDS: HEPARIN SOD,PORK IN 0.45% NACL 25,000 UNIT in 0.45% NACL 1 250ML.BAG IV SCH (16:35)
[2018-12-08] MEDS: 0.9% NACL WITH KCL 40 MEQ/L 1,000 ML IV SCH (16:50)
[2018-12-08 17:03] LABS: Magnesium 1.7 mg/dL (1.6-2.3); Potassium 2.9 mmol/L (3.5-5.1)
[2018-12-08] MEDS: VANCOMYCIN 1,750 MG in SODIUM CHLORIDE 0.9% 500 ML 500 ML IVPB SCH (17:35)
--- NOTE | 2018-12-08 18:52 | PN ---
PROGRESS NOTE DATE OF SERVICE: December 08, 2018 This 83-year-old gentleman who was admitted with epidural abscess had surgery. The wound culture showed E coli. No chest pain. No palpitations. No fever. PT/OT is following the patient. ECF rehab is being planned. REVIEW OF SYSTEMS: CARDIOVASCULAR: No angina or palpitations. RESPIRATIONS: As mentioned earlier. GI as mentioned earlier. : No dysuria. CENTRAL NERVOUS SYSTEM: As mentioned earlier. CURRENT MEDICATIONS: Reviewed and include: 1. Tylenol 650 q.6h p.r.n.. 2. Taylor 5 mg. 3. Tenormin. 4. Cepacol. 5. Cefepime. 6. Flexeril 5 mg t.i.d. 7. Heparin. 8. Dilaudid. 9. Synthroid. 10.Milk of magnesia. 11.Narcan. 12.Potassium protocol. 13.Protonix 40 mg. 14.Senokot. 15.Flomax. 16.Vancomycin. 17.P.r.n. medications. ASSESSMENT: 1. Intractable low back pain and radicular pain, significant degenerative joint disease and as well as epidural abscess status post surgery. 2. Severe degenerative joint disease of the back with possible acute diskitis L4-L5 and L4-5 spinal canal stenosis. L4-5 laminectomy decompression. 3. Hepatocellular carcinoma, prostate cancer for chemotherapy. 4. Hypokalemia, severe. 5. Inferior vena cava deep vein thrombosis, maintained on IV heparin for the paraspinal mass or phlegmon. 6. Gastroesophageal reflux disease. 7. Hyperlipidemia. 8. Hypertension. 9. History of benign prostatic hypertrophy. 10.Hypothyroidism. 11.Acute urinary tract infection, E coli recurrent. RECOMMENDATIONS AND DISCUSSION: Recommend to continue current medications, management and monitoring, symptomatic treatment. Otherwise, at this time, I recommend supplement potassium. Monitor potassium closely. I would also check magnesium and use replacement protocol. Otherwise cultures as above. Continue to monitor. Guarded prognosis because of multiple complex medical issues. Further recommendations to follow. MMODL / IJN: [id number] /
[2018-12-09] MEDS: CEFEPIME 1 GM in SODIUM CHLORIDE 0.9% 50 ML IVPB SCH ×4 (00:05→23:15)
[2018-12-09] MEDS: HYDROmorphone 4 MG TABLET PO PRN ×2 (04:47→08:47)
[2018-12-09] MEDS: LEVOTHYROXINE 100 MCG TAB PO SCH (05:18)
[2018-12-09] MEDS: VANCOMYCIN 1,750 MG in SODIUM CHLORIDE 0.9% 500 ML 500 ML IVPB SCH ×2 (05:18→17:17)
[2018-12-09] MEDS: CYCLOBENZAPRINE 5 MG TAB PO SCH ×3 (07:56→22:09)
[2018-12-09] MEDS: SENNOSIDES 8.6 MG TAB PO SCH ×2 (07:56→22:08)
[2018-12-09] MEDS: ATENOLOL 25 MG TAB PO SCH (07:56)
[2018-12-09] MEDS: TAMSULOSIN 0.4 MG CAP.ER.24H PO SCH (07:56)
[2018-12-09] MEDS: PANTOPRAZOLE 40 MG TABLET PO SCH (07:56)
[2018-12-09] MEDS: 0.9% NACL WITH KCL 40 MEQ/L 1,000 ML IV SCH ×2 (07:57→17:18)
[2018-12-09] MEDS: HEPARIN SOD,PORK IN 0.45% NACL 25,000 UNIT in 0.45% NACL 1 250ML.BAG IV SCH ×2 (08:01→22:07)
[2018-12-09 08:05] LABS: Basophils % (A) 0 %; Eosinophils # (A) 0.4 k/uL (0-0.7); Eosinophils % (A) 5 %; HCT 33.4 % (39.0-53.0); HGB 11.1 gm/dL (13.0-17.5); Lymphocytes # (A) 1.6 k/uL (1.0-4.8); Lymphocytes % (A) 23 %; MCH 29.1 pg (25.0-35.0); MCHC 33.4 g/dL (31.0-37.0); MCV 87.1 fL (80.0-100.0); Mean Platelet Volume 7.1; Monocytes # (A) 0.5 k/uL (0-1.0); Monocytes % (A) 6 %; Neutrophils # (A) 4.4 k/uL (1.3-7.7); Neutrophils % (A) 62 %; Platelet Count 250 k/uL (150-450); RBC 3.83 m/uL (4.30-5.90); RDW 15.8 % (11.5-15.5); WBC 7.1 k/uL (3.8-10.6)
[2018-12-09 08:14] LABS: Anion Gap 5 mmol/L; Blood Urea Nitrogen 11 mg/dL (9-20); Calcium 9.5 mg/dL (8.4-10.2); Carbon Dioxide 26 mmol/L (22-30); Chloride 110 mmol/L (98-107); Glucose 90 mg/dL (74-99); Magnesium 1.9 mg/dL (1.6-2.3); Potassium 3.6 mmol/L (3.5-5.1); Sodium 141 mmol/L (137-145)
--- NOTE | 2018-12-09 11:35 | P.PN ---
Subjective Progress Note Date: 12/09/18 Principal diagnosis: Status post laminectomy discectomy L4 5 with irrigation and debridement of epidural abscess. Discitis. L4 osteomyelitis. Patient is a very pleasant 83-year-old male who is well known to our service who is seen and examined at the bedside for follow-up evaluation in regards to his intractable back pain and right lower extremity radiculopathy. He is status post L4-5 laminectomy and decompression with bilateral partial medial facetectomy and foraminotomy with irrigation and excisional debridement of epidural abscess with partial corpectomy of L4 osteomyelitis and repair of 2 mm incidental durotomy. He states his pain is better controlled postoperatively. He does continue to have some pain at the surgical site. He feels his right lower extremity symptoms have had some improvement. The patient was able to sit up in chair yesterday and this morning for about an hour each. He is sleeping soundly at this time. Objective - Vital Signs Vital signs: Vital Signs Temp 98 F 12/09/18 04:54 Pulse 67 12/09/18 04:54 Resp 16 12/09/18 04:54 BP 120/72 12/09/18 04:54 Pulse Ox 97 12/08/18 21:00 Intake & Output 12/08/18 12/09/18 12/09/18 18:59 06:59 18:59 Intake Total 250.000 250 32.474 Output Total 550 Balance 250.000 -300 32.474 Weight 81 kg Intake: Intake, IV Titration 250.000 250 32.474 Amount Heparin Sod,Pork in 0.45% 250.000 250 32.474 NaCl 25,000 unit In 0.45 % NaCl 1 250ml.bag @ 18 UNITS/KG/HR 14.58 mls/hr IV .Q17H9M [facility] Rx#: [id number] Output: Urine 550 Other: Voiding Method Urinal Urinal Urinal # Voids 1 - Exam This is a pleasant 83-year-old male in no acute distress. He is sleeping soundly. He is not easily awoken at this time. No obvious deformity noted to the lower extremities. Pedal pulses are +2/4. - Labs CBC & Chem 7: 12/09/18 07:23 12/09/18 07:23 Labs: Abnormal Lab Results - Last 24 Hours (Table) 12/08/18 12/08/18 12/09/18 Range/Units 12:46 16:24 07:23 RBC 3.83 L (4.30-5.90) m/uL Hgb 11.1 L (13.0-17.5) gm/dL Hct 33.4 L (39.0-53.0) % RDW 15.8 H (11.5-15.5) % APTT 53.8 H (22.0-30.0) sec Potassium 2.9 L (3.5-5.1) mmol/L Chloride (98-107) mmol/L Creatinine (0.66-1.25) mg/dL 12/09/18 12/09/18 Range/Units 07:23 07:23 RBC (4.30-5.90) m/uL Hgb (13.0-17.5) gm/dL Hct (39.0-53.0) % RDW (11.5-15.5) % APTT 53.4 H (22.0-30.0) sec Potassium (3.5-5.1) mmol/L Chloride 110 H (98-107) mmol/L Creatinine 0.55 L (0.66-1.25) mg/dL Assessment and Plan (1) History of lumbar laminectomy for spinal cord decompression Current Visit: Yes Status: Acute Code(s): Z98.890 - OTHER SPECIFIED POSTPROCEDURAL STATES SNOMED Code(s): 992618919 (2) Discitis of lumbar region Current Visit: Yes Status: Acute Code(s): M46.46 - DISCITIS, UNSPECIFIED, LUMBAR REGION SNOMED Code(s): 097429823 (3) Epidural abscess Current Visit: Yes Status: Acute Code(s): G06.2 - EXTRADURAL AND SUBDURAL ABSCESS, UNSPECIFIED SNOMED Code(s): 26916347 (4) Intractable low back pain Current Visit: Yes Status: Acute Code(s): M54.5 - LOW BACK PAIN SNOMED Code(s): 90118391710050900 (5) Lumbar back pain Current Visit: Yes Status: Acute Code(s): M54.5 - LOW BACK PAIN SNOMED Code(s): 433767088 Plan: The clinical findings are discussed the patient and nursing staff. Continue to encourage getting up in chair and ambulating short distances. We will continue to follow.
--- NOTE | 2018-12-09 15:01 | P.PN ---
Subjective Progress Note Date: 12/09/18 Principal diagnosis: New Dual Primary Malignancies, Increased pain. Stil;l with difficulties of post op pain, but slowly increasing activity. Objective - Vital Signs Vital signs: Vital Signs Temp 97.9 F 12/09/18 11:44 Pulse 69 12/09/18 11:44 Resp 20 12/09/18 11:44 BP 123/66 12/09/18 11:44 Pulse Ox 94 L 12/09/18 11:44 Intake & Output 12/08/18 12/09/18 12/09/18 18:59 06:59 18:59 Intake Total 250.000 250 32.474 Output Total 550 Balance 250.000 -300 32.474 Weight 81 kg Intake: Intake, IV Titration 250.000 250 32.474 Amount Heparin Sod,Pork in 0.45% 250.000 250 32.474 NaCl 25,000 unit In 0.45 % NaCl 1 250ml.bag @ 18 UNITS/KG/HR 14.58 mls/hr IV .Q17H9M [facility] Rx#: [id number] Output: Urine 550 Other: Voiding Method Urinal Urinal Urinal # Voids 1 - Exam Constitutional General appearance: no acute distress - EENT Eyes: EOMI, PERRLA ENT: hearing grossly normal, normal oropharynx - Neck Neck: no lymphadenopathy Thyroid: bilateral: normal size - Respiratory Respiratory: bilateral: CTA - Cardiovascular Rhythm: regular Heart sounds: normal: S1, S2 - Gastrointestinal General gastrointestinal: normal bowel sounds, soft - Integumentary Integumentary: normal - Musculoskeletal Musculoskeletal: generalized weakness, strength equal bilaterally - Psychiatric Psychiatric: A&O x's 3, appropriate affect - Labs CBC & Chem 7: 12/09/18 07:23 12/09/18 07:23 Labs: Abnormal Lab Results - Last 24 Hours (Table) 12/08/18 12/09/18 12/09/18 Range/Units 16:24 07:23 07:23 RBC 3.83 L (4.30-5.90) m/uL Hgb 11.1 L (13.0-17.5) gm/dL Hct 33.4 L (39.0-53.0) % RDW 15.8 H (11.5-15.5) % APTT (22.0-30.0) sec Potassium 2.9 L (3.5-5.1) mmol/L Chloride 110 H (98-107) mmol/L Creatinine 0.55 L (0.66-1.25) mg/dL 12/09/18 Range/Units 07:23 RBC (4.30-5.90) m/uL Hgb (13.0-17.5) gm/dL Hct (39.0-53.0) % RDW (11.5-15.5) % APTT 53.4 H (22.0-30.0) sec Potassium (3.5-5.1) mmol/L Chloride (98-107) mmol/L Creatinine (0.66-1.25) mg/dL Assessment and Plan Plan: (1) Intractable low back pain Narrative/Plan: - The patient had similar symptoms that his initial presentation last month, his MRI at that time indicating no evidence of malignancy. - The symptoms were felt to be due to the moderate to severe disc disease noted at L5 L6. - Treatment as outpatient has been Narcotic and Steroid management, as well as , referral to PMR. They have not seen yet He is now presenting with progression in his symptoms. Repeat computed tomography scan at this time notes a possible paraspinal mass with destructive process, with differentials including malignancy as well as discitis with phlegmon. Based on the report, as well as personally reviewed the images, this actually appears to be a new finding or at least a major change from 6 weeks ago. - He is status post procedure with Orthopedic spine surgery - Dr. Acosta consulted regarding likely osteomyelitis/diskitis, plan for surgical intervention of spine abscess - Discussed results of PET and MRI in detail with radiology. I have reviewed with patient and family and plan will be to begin Hormonal therapy and plan for chemoembolization of local hepatocellular cancer with q3 month Lupron after acute infectious process is resolved Current Visit: Yes Status: Acute Code(s): M54.5 - LOW BACK PAIN SNOMED Code(s): 14441535855952881 (2) Inferior vena cava thromboembolism Narrative/Plan: - Likely secondary to malignancy/cies. Was on xarelto as outpatient - Heparin Drip at this time, as long as no post op bleeding and ok with ortho will convert Current Visit: No Status: Acute Priority: High Code(s): I82.220 - ACUTE EMBOLISM AND THROMBOSIS OF INFERIOR VENA CAVA SNOMED Code(s): 223296966 (3) Hepatocellular carcinoma Narrative/Plan: - Appears to be localized likely candidate chemoembolization of liver, will need to address acute lumbarsacral infectious process prior to intervention for liver lesion. Current Visit: Yes Status: Acute Code(s): C22.0 - LIVER CELL CARCINOMA SNOMED Code(s): 655481112 (4) Prostate cancer Narrative/Plan: - As noted the patient had multiple prior prostate biopsies that were negative. The diagnosis was made via lymph node biopsy last month. PSA has been stable in the low 20 range. Current Visit: Yes Status: Acute Code(s): C61 - MALIGNANT NEOPLASM OF PROSTATE SNOMED Code(s): 794187284 (5) Osteomyelitis/Diskitis: status Post Surgery 12/05/18. He may resume anticoagulation with heparin drip first 24-48 post op to ensure no bleeding, then will convert back to PO / - Per Ortho ok to resume AC, resumed Heparin drip on 12/07/18 - Awaiting Cultures to fully result from wound and Pathology: - Gram Negative Bacilli in wound (6) Ecoli UTI - Recurrent: - Massive prostate and new diagnosis of prostate cancer {keith: Encourage to increase activity - Supportive and infection management cont per Primary
[2018-12-09] MEDS: HYDROcodone/APAP 5-325MG 1 EACH TAB PO PRN ×2 (19:02→23:15)
--- NOTE | 2018-12-09 19:59 | PN ---
PROGRESS NOTE DATE OF SERVICE: 12/09/2018 This 83-year-old gentleman who was had surgery. The patient also had some mild confusion yesterday. The wound culture showed E coli. No chest pain. No palpitations. No fever. PT, OT evaluated the patient. Multiple consultants including Infectious Disease and as well as hematology/oncology and orthopedic surgery following the patient closely. No chest pain. No palpitations. No fever. EXAM: Alert and oriented x3. Pulse 69, blood pressure 123/66. Respiration 20. Temperature 97.9, pulse ox 94% on room air. HEENT: Conjunctivae normal. NECK: No jugular venous distention. CARDIOVASCULAR: S1, S2 muffled. Respiratory: Breath sounds diminished in the bases. Scattered rhonchi. No crackles. Abdomen is soft, nontender. Legs are no edema. No swelling. Nervous system: Diffusely weak. Examination of back: Status post surgery. LABS: WBC 7.2, hemoglobin 11.1, potassium 3.6. ASSESSMENT: 1. Intractable low back pain, radicular pain, significant DJD and as well as epidural abscess, status post surgery. 2. 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 3. Hepatocellular carcinoma and prostate cancer for chemotherapy. 4. Hypokalemia, severe. 5. 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 6. Paraspinal mass or phlegmon. 7. Gastroesophageal reflux disease. 8. Hyperlipidemia. 9. Hypertension. 10.History of benign prostatic hypertrophy. 11.Hypothyroidism. 12.Acute urinary tract infection with E coli. RECOMMENDATIONS AND DISCUSSION: Recommend to continue current medications, management and symptomatic treatment. Otherwise, at this time, I would continue the pain medications. Continue the anticoagulation and PT/OT evaluation, possible ECF rehab. Currently patient is on IV heparin, could be transitioned to p.o. when okay with Orthopedic surgery. Further recommendations to follow. MMODL / IJN: [id number] / MTDD
[2018-12-10] MEDS: HYDROcodone/APAP 5-325MG 1 EACH TAB PO PRN ×4 (05:26→22:27)
[2018-12-10] MEDS: VANCOMYCIN 1,750 MG in SODIUM CHLORIDE 0.9% 500 ML 500 ML IVPB SCH (05:26)
[2018-12-10] MEDS: LEVOTHYROXINE 100 MCG TAB PO SCH (05:26)
[2018-12-10 07:55] LABS: Basophils % (A) 1 %; Eosinophils # (A) 0.5 k/uL (0-0.7); Eosinophils % (A) 8 %; HCT 32.7 % (39.0-53.0); HGB 10.9 gm/dL (13.0-17.5); Lymphocytes # (A) 1.4 k/uL (1.0-4.8); Lymphocytes % (A) 24 %; MCH 29.1 pg (25.0-35.0); MCHC 33.4 g/dL (31.0-37.0); MCV 86.9 fL (80.0-100.0); Mean Platelet Volume 6.7; Monocytes # (A) 0.4 k/uL (0-1.0); Monocytes % (A) 7 %; Neutrophils # (A) 3.3 k/uL (1.3-7.7); Neutrophils % (A) 57 %; Platelet Count 248 k/uL (150-450); RBC 3.76 m/uL (4.30-5.90); RDW 15.9 % (11.5-15.5); WBC 5.8 k/uL (3.8-10.6)
[2018-12-10] MEDS: HYDROmorphone 4 MG TABLET PO PRN ×2 (08:15→13:39)
[2018-12-10] MEDS: SENNOSIDES 8.6 MG TAB PO SCH ×2 (08:16→21:54)
[2018-12-10] MEDS: ATENOLOL 25 MG TAB PO SCH (08:16)
[2018-12-10] MEDS: PANTOPRAZOLE 40 MG TABLET PO SCH (08:16)
[2018-12-10] MEDS: CYCLOBENZAPRINE 5 MG TAB PO SCH ×3 (08:16→21:54)
[2018-12-10] MEDS: TAMSULOSIN 0.4 MG CAP.ER.24H PO SCH (08:16)
[2018-12-10] MEDS: CEFEPIME 1 GM in SODIUM CHLORIDE 0.9% 50 ML IVPB SCH ×3 (08:17→15:41)
--- NOTE | 2018-12-10 08:23 | P.PN ---
Subjective Progress Note Date: 12/10/18 Principal diagnosis: Principal diagnoses: Status post L4-5 laminectomy and decompression with bilateral partial medial facetectomy and foraminotomy with irrigation and excisional debridement of epidural abscess with partial corpectomy of L4 osteomyelitis and repair of 2 mm incidental durotomy L4-5 and L5-S1 bony destructive changes compatible with acute discitis/ osteomyelitis Lumbar epidural abscess L4-5 spinal canal stenosis and neural foraminal stenosis Intractable low back pain Right lower extremity radiculopathy Hepatocellular cancer Prostate cancer Inability to ambulate due to pain 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 He is status post L4-5 laminectomy and decompression with bilateral partial medial facetectomy and foraminotomy with irrigation and excisional debridement of epidural abscess with partial corpectomy of L4 osteomyelitis and repair of 2 mm incidental durotomy performed on 12/05/2018. His symptoms have not had much roving changer the weekend. He was able to transfer to a bedside chair for approximately one hour which she states exacerbated his back pain and right lower extremity radiculopathy pain. His pain is much better controlled while lying flat in bed. He was able to be set up on 12/07/2018 and did not have any episodes of spinal headaches. He is able to increase his mobility and ambulation with the assistance of physical therapy but feels he has had difficulty doing so due to pain. He states he has been eating and voiding without difficulty. He has no new complaints of the bedside. He continues to be seen by Dr. Singletary in oncology, by Dr. Acosta in infectious disease, and by medicine. He continues to receive antibiotic treatment with vancomycin and cefepime. Patient history: He was previously seen and examined in the hospital in September 2018. Since that time he has had a significant exacerbation of back pain. He states his back pain is better controlled while lying flat in bed. Currently his pain is severe down the right lower extremity with increased ambulation and activities. He states following previous discharge from the hospital he felt he was doing fairly well until this past 12/01/2018. Prior to that time he was able to ambulate with the assistance of a walker. At his last visit imaging showed changes within the liver and he was waiting for liver biopsy after ultrasound results showed the liver was enlarged with 2 hypoechoic mass suspicious for metastatic disease. He was found to have hepatocellular carcinoma. Given his severe pain in his lumbar spine, a PET scan was performed on 12/01/2018. A CT of the lumbar spine has also been performed as well as an MRI of the lumbar spine. On imaging he was found to have bony destructive changes at L4-5 and L5-S1 with evidence of paraspinal mass consistent with acute discitis/osteomyelitis along with epidural abscess. These findings were not evident on previous imaging taken at his last admission in September 2018. Patient has continued to follow with Dr. Singletary in oncology. His symptoms have progressed as compared to his previous admittance to the hospital. Patient does have a history of prostate cancer. Objective - Vital Signs Vital signs: Vital Signs Temp 97.7 F 12/10/18 05:00 Pulse 62 12/10/18 05:00 Resp 16 12/10/18 05:00 BP 150/85 12/10/18 05:00 Pulse Ox 98 12/10/18 05:00 Intake & Output 12/09/18 12/10/18 12/10/18 18:59 06:59 18:59 Intake Total 32.474 1887.526 183.617 Output Total 2150 Balance 32.474 -262.474 183.617 Weight 81 kg Intake: Intake, IV Titration 32.474 817.526 183.617 Amount 0.9% NaCl with KCl 40 Meq 600 /l 1,000 ml @ 75 mls/hr IV .[id number] DIPESH Rx#: [id number] Heparin Sod,Pork in 0.45% 32.474 217.526 183.617 NaCl 25,000 unit In 0.45 % NaCl 1 250ml.bag @ 18 UNITS/KG/HR 14.58 mls/hr IV .[id number] DIPESH Rx#: [id number] Oral 1070 Output: Urine 2150 Other: Voiding Method Urinal Urinal - Exam Physical exam: Patient is awake, alert, and oriented 3 Vital signs stable Good chest excursion with deep inspiration and expiration Patient is currently lying comfortably in bed Dorsiflexion, plantarflexion, and extensor hallucis longus positive sustained bilaterally Lower extremity strength 5/5 bilaterally Patient is able to lift legs independently in bed without but movements are somewhat slow No signs or symptoms of DVT; no calf pain No pain with internal and external rotation of the hips bilaterally Neurovascularly intact - Labs CBC & Chem 7: 12/10/18 07:16 12/09/18 07:23 Labs: Abnormal Lab Results - Last 24 Hours (Table) 12/09/18 12/10/18 12/10/18 Range/Units 07:23 07:16 07:16 RBC 3.76 L (4.30-5.90) m/uL Hgb 10.9 L (13.0-17.5) gm/dL Hct 32.7 L (39.0-53.0) % RDW 15.9 H (11.5-15.5) % APTT 53.4 H 57.5 H (22.0-30.0) sec Microbiology - Last 24 Hours (Table) 12/05/18 14:16 Anaerobic Culture - Final Other - Other Assessment and Plan Assessment: Assessment: L4-5 laminectomy and decompression with bilateral partial medial facetectomy and foraminotomy with irrigation and excisional debridement of epidural abscess with partial corpectomy of L4 osteomyelitis and repair of 2 mm incidental durotomy L4-5 and L5-S1 bony destructive changes compatible with acute discitis/ osteomyelitis Lumbar epidural abscess L4-5 spinal canal stenosis and neural foraminal stenosis Intractable low back pain Right lower extremity radiculopathy Positive urine culture for E. coli Positive wound culture for E. 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 (1) Discitis of lumbar region Current Visit: Yes Status: Acute Code(s): M46.46 - DISCITIS, UNSPECIFIED, LUMBAR REGION SNOMED Code(s): 796104357 (2) Lumbar stenosis Current Visit: Yes Status: Acute Code(s): M48.061 - SPINAL STENOSIS, LUMBAR REGION WITHOUT NEUROGENIC [place] SNOMED Code(s): 37389733 (3) Lumbar herniated disc Current Visit: Yes Status: Acute Code(s): M51.26 - OTHER INTERVERTEBRAL DISC DISPLACEMENT, LUMBAR REGION SNOMED Code(s): 398033650 (4) Epidural abscess Current Visit: Yes Status: Acute Code(s): G06.2 - EXTRADURAL AND SUBDURAL ABSCESS, UNSPECIFIED SNOMED Code(s): 75746401 (5) Hepatocellular carcinoma Current Visit: Yes Status: Acute Code(s): C22.0 - LIVER CELL CARCINOMA SNOMED Code(s): 917530814 (6) Intractable low back pain Current Visit: Yes Status: Acute Code(s): M54.5 - LOW BACK PAIN SNOMED Code(s): 93451446505913565 (7) Prostate cancer Current Visit: Yes Status: Acute Code(s): C61 - MALIGNANT NEOPLASM OF PROSTATE SNOMED Code(s): 722803803 (8) Inferior vena cava thromboembolism Current Visit: No Status: Acute Priority: High Code(s): I82.220 - ACUTE EMBOLISM AND THROMBOSIS OF INFERIOR VENA CAVA SNOMED Code(s): 590250347 Plan: Plan: 1. Patient is status post L4-5 laminectomy and decompression with bilateral partial medial facetectomy and foraminotomy with irrigation and excisional debridement of epidural abscess with partial corpectomy of L4 osteomyelitis and repair of 2 mm incidental durotomy. Following the repair of his incidental durotomy, patient was able to sit upright on 12/07/2018 without any evidence of spinal headaches. He has not had any headaches over the weekend. He does have difficulty with increasing mobility and mobilization due to his exacerbation of back pain and lower extremity leg pain when sitting upright or out of bed. He was able to sit upright for approximately one hour yesterday in a bedside chair. We discussed she could benefit from wearing bracing while out of bed. Bracing has been delivered and fitted appropriately following a previous prescription was written and provided to case management. We discussed he may continue to work on increasing mobility and ambulation with the assistance of physical therapy. We are currently planning for any further surgical intervention at his lumbosacral spine. We'll plan to have other medical providers continue pain control with medications prescribed by them. From an orthopedic spine standpoint, patient will be clear for discharge once cleared by other medical providers. We will plan have him follow-up in the outpatient setting in approximately 1-2 weeks for further evaluation. 2. Patient will continue be seen in exam by medicine, infectious disease, pain management and oncology for his significant medical diagnoses; heparin drip has been restarted Time with Patient: Less than 30
[2018-12-10 09:28] LABS: Anion Gap 5 mmol/L; Blood Urea Nitrogen 9 mg/dL (9-20); Calcium 9.4 mg/dL (8.4-10.2); Carbon Dioxide 27 mmol/L (22-30); Chloride 110 mmol/L (98-107); Glucose 100 mg/dL (74-99); Potassium 3.7 mmol/L (3.5-5.1); Sodium 142 mmol/L (137-145)
[2018-12-10] MEDS: 0.9% NACL WITH KCL 40 MEQ/L 1,000 ML IV SCH ×2 (09:58→21:54)
--- NOTE | 2018-12-10 13:40 | CDI ---
Documentation Clarification Form Date: 12/10/2018 12:46:58 PM From: Aide Camejo RN, CCDS Admit Date: 12/02/2018 12:35:00 AM Patient Name: Griffin Summers Visit Number: [id number] Discharge Date: ATTENTION: The Clinical Documentation Specialists (CDI) and [facility] Coding Staff appreciate your assistance in clarifying documentation. Please respond to the clarification below the line at the bottom and electronically sign. The CDI & [facility] Coding staff will review the response and follow-up if needed. Please note: Queries are made part of the Legal Health Record. If you have any questions, please contact the author of this message via ITS. Dr. Clayton Kirby The lateral aspect of the traversing nerve root there appeared to be a Dura leak documented in the operative note and the durotomy was repaired. Patients Admitting Diagnosis: L4 5 epidural abscess, L4 5 d, L4 5 osteomyelitis Post-Operative Diagnosis: Same, with 2mm incidental durotomy repaired in surgery Procedure performed: Laminectomy and wide decompression with bilateral partial medial facectomy and foraminotomy L4 5 discectomy for decompression L4 5, Irrigation and excision debridement of deep disc space at L4 5, Irrigation and excisional debridement of epidural abscess, Partial subtotal corpectomy of L4 osteomyelitis, Repair of 2mm incidental durotomy History/Risk Factors: hepatocellular and prostate cancer, Hypertension Clinical Indicators: Present with low back pain, right lower extremity radiculopathy; inability to ambulate. MRI lumbar spine redemonstrate acute discitis/osteomyelitis at L4-5 with associated longated epidural abscess centered at the L4-5 vertebral disc space creating moderate spinal canal stenosis and severe neural foraminal narrowing at L4-5 with nerve root impingement bilaterally: Treatment: 2mm Durotomy repair Monitor for signs/symptoms of spinal headache In order to accurately reflect this patients severity of illness, please clarify if the post-operative diagnosis durotomy repair is: An expected post-procedural or post-surgical condition Integral to the procedure Inherent to the procedure An unexpected post-procedural or post-surgical condition related to surgical care, or other medical conditions (specify) Other, please specify Unable to determine (Last Revision: February 2018) The incidental durotomy that occurred was an unexpected occurrence during the surgery. It was repaired appropriately at the time of surgery and has gone on to heal well. The patient has multiple medical issues and the durotomy with repair did not cause any significant post surgical conditions or consequence. The patient has limited mobility and we had him stay in bed for 48 hours before starting his mobilization. I do not believe that this slowed down his overall outcome nor did it he change his ability to mobilize once he was able to start his therapy for mobilization. This issue did not prolong his hospitalization or slow his recovery. PHIL
[2018-12-10] MEDS ORDERED: VANCOMYCIN TROUGH DUE 1 EACH MISC MISCELLANE ONE (17:00)
--- NOTE | 2018-12-10 21:23 | P.PN ---
Subjective Progress Note Date: 12/10/18 Principal diagnosis: New Dual Primary Malignancies, Increased pain. Late Entry patient seen in am Pathology resulted and did not show signs of malignancy from recent surgical intervention for diskitis/osteomyelitis L4-5 He is slowly improving daily, managment of pain medications PO to improve and continue increased acitivity Objective - Vital Signs Vital signs: Vital Signs Temp 97.5 F L 12/10/18 11:37 Pulse 62 12/10/18 16:00 Resp 22 12/10/18 16:00 BP 163/90 12/10/18 11:37 Pulse Ox 96 12/10/18 11:37 Intake & Output 12/10/18 12/10/18 12/11/18 06:59 18:59 06:59 Intake Total 0255.691 7751.617 240 Output Total 2150 900 Balance -208.238 0605.617 240 Weight 81 kg 81 kg Intake: Intake, IV Titration 817.526 833.617 Amount 0.9% NaCl with KCl 40 Meq 600 600 /l 1,000 ml @ 75 mls/hr IV .[id number] DIPESH Rx#: [id number] Cefepime 1 gm In Sodium 50 Chloride 0.9% 50 ml @ 100 mls/hr IVPB Q8HR DIPESH Rx# :[id number] Heparin Sod,Pork in 0.45% 217.526 183.617 NaCl 25,000 unit In 0.45 % NaCl 1 250ml.bag @ 18 UNITS/KG/HR 14.58 mls/hr IV .Q17H9M DIPESH Rx#: [id number] Oral 1070 2280 240 Output: Urine 2150 900 Other: Voiding Method Urinal Urinal # Voids 3 - Exam Constitutional General appearance: no acute distress - EENT Eyes: EOMI, PERRLA ENT: hearing grossly normal, normal oropharynx - Neck Neck: no lymphadenopathy Thyroid: bilateral: normal size - Respiratory Respiratory: bilateral: CTA - Cardiovascular Rhythm: regular Heart sounds: normal: S1, S2 - Gastrointestinal General gastrointestinal: normal bowel sounds, soft - Integumentary Integumentary: normal - Musculoskeletal Musculoskeletal: generalized weakness, strength equal bilaterally - Psychiatric Psychiatric: A&O x's 3, appropriate affect - Labs CBC & Chem 7: 12/10/18 07:16 12/10/18 07:16 Labs: Abnormal Lab Results - Last 24 Hours (Table) 12/10/18 12/10/18 12/10/18 Range/Units 07:16 07:16 07:16 RBC 3.76 L (4.30-5.90) m/uL Hgb 10.9 L (13.0-17.5) gm/dL Hct 32.7 L (39.0-53.0) % RDW 15.9 H (11.5-15.5) % APTT 57.5 H (22.0-30.0) sec Chloride 110 H (98-107) mmol/L Creatinine 0.64 L (0.66-1.25) mg/dL Glucose 100 H (74-99) mg/dL Microbiology - Last 24 Hours (Table) 12/05/18 14:16 Anaerobic Culture - Final Other - Other Assessment and Plan Plan: (1) Intractable low back pain Narrative/Plan: - The patient had similar symptoms that his initial presentation last month, his MRI at that time indicating no evidence of malignancy. - The symptoms were felt to be due to the moderate to severe disc disease noted at L5 L6. - Treatment as outpatient has been Narcotic and Steroid management, as well as , referral to PMR. They have not seen yet He is now presenting with progression in his symptoms. Repeat computed tomography scan at this time notes a possible paraspinal mass with destructive process, with differentials including malignancy as well as discitis with phlegmon. Based on the report, as well as personally reviewed the images, this actually appears to be a new finding or at least a major change from 6 weeks ago. - He is status post procedure with Orthopedic spine surgery - Dr. Acosta consulted regarding likely osteomyelitis/diskitis, plan for surgical intervention of spine abscess - Discussed results of PET and MRI in detail with radiology. I have reviewed with patient and family and plan will be to begin Hormonal therapy and plan for chemoembolization of local hepatocellular cancer with q3 month Lupron after acute infectious process is resolved Current Visit: Yes Status: Acute Code(s): M54.5 - LOW BACK PAIN SNOMED Code(s): 37726585664956952 (2) Inferior vena cava thromboembolism Narrative/Plan: - Likely secondary to malignancy/cies. Was on xarelto as outpatient - Heparin Drip at this time, as long as no post op bleeding and ok with ortho will convert Current Visit: No Status: Acute Priority: High Code(s): I82.220 - ACUTE EMBOLISM AND THROMBOSIS OF INFERIOR VENA CAVA SNOMED Code(s): 280567754 (3) Hepatocellular carcinoma Narrative/Plan: - Appears to be localized likely candidate chemoembolization of liver, will need to address acute lumbarsacral infectious process prior to intervention for liver lesion. Current Visit: Yes Status: Acute Code(s): C22.0 - LIVER CELL CARCINOMA SNOMED Code(s): 832928008 (4) Prostate cancer Narrative/Plan: - As noted the patient had multiple prior prostate biopsies that were negative. The diagnosis was made via lymph node biopsy last month. PSA has been stable in the low 20 range. Current Visit: Yes Status: Acute Code(s): C61 - MALIGNANT NEOPLASM OF PROSTATE SNOMED Code(s): 628389761 (5) Osteomyelitis/Diskitis: status Post Surgery 12/05/18. He may resume anticoagulation with heparin drip first 24-48 post op to ensure no bleeding, then will convert back to PO / - Per Ortho ok to resume AC, resumed Heparin drip on 12/07/18 - Awaiting Cultures to fully result from wound and Pathology: - Gram Negative Bacilli in wound (6) Ecoli UTI - Recurrent: - Massive prostate and new diagnosis of prostate cancer Plan: - Continue with adjustments of pain medications to a PO regiment and continuing to Encourage to increase activity - Supportive and infection management cont per Primary - Reviewed pathology as negative, Continue IV abx per ID
[2018-12-10] MEDS: HEPARIN SOD,PORK IN 0.45% NACL 25,000 UNIT in 0.45% NACL 1 250ML.BAG IV SCH (21:54)
--- NOTE | 2018-12-10 23:18 | P.PN ---
Subjective Progress Note Date: 12/10/18 Very pleasant 83-year-old male is known to the infectious disease service because of his many bouts of very tract infection. The patient has a long-standing history of a very large prostate with difficulties with some urinary retention resulting urinary tract infection. Recent infection has been with E. coli with no oral options and is receiving a couple of courses of outpatient intravenous antibiotic therapy and has done well. In September he was hospitalized with some back pain evaluations were performed showing evidence of degenerative disease and with local care and treatment of urinary infection he improved. 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 Percutaneous biopsy at this facility was performed and was nondiagnostic. He was seen at [facility] also with nondiagnostic testing. He eventually was seen at [facility] where biopsy was successful of the liver which reveal evidence of adenocarcinoma , and there is also evidence of enlarged lymph nodes in the pelvis which were diagnostic of prostate carcinoma. The patient was receiving anticoagulation therapy and was in the midst of workup for his underlying cancers, outpatient PET scan had just been performed. If this workup was occurring the patient was having increasing amounts of back pain on the day of admission was no longer able to ambulate because his pain was so severe. This lady was brought into the hospital and workup has been initiated and he has now been seen by orthopedic spine in the infectious diseases consultation was initiated. The patient is now had the follow-up MRI reveals evidence of the destruction of L4-L5 which is new compared to the September 2018 MRI. With concerns to discitis and epidural abscess the consult was requested. 12/07/2018 patient has significant pain of the LS-spine from the recent surgery. He however is not having fevers or chills. Nursing relates he ate his lunch. But is having some confusion. 12/10/2018 patient is now awake alert oriented to person place and time aware of his very vivid hallucinations. Pain control good control at this time. He has been getting up with physical therapy. the pathology is reviewed with thefamily no evidence of malignancy, only infection including osteomyelitis. Objective - Vital Signs Vital signs: Vital Signs Temp 97.8 F 12/10/18 21:00 Pulse 75 12/10/18 21:00 Resp 18 12/10/18 22:53 BP 141/78 01/21/19 21:00 Pulse Ox 96 12/10/18 21:00 Intake & Output 12/10/18 12/10/18 12/11/18 06:59 18:59 06:59 Intake Total 5523.430 3536.000 1020 Output Total 2150 900 450 Balance -129.152 0423.000 570 Weight 81 kg 81 kg Intake: Intake, IV Titration 817.526 900.000 300 Amount 0.9% NaCl with KCl 40 Meq 600 600 300 /l 1,000 ml @ 75 mls/hr IV .[id number] DIPESH Rx#: [id number] Cefepime 1 gm In Sodium 50 Chloride 0.9% 50 ml @ 100 mls/hr IVPB Q8HR DIPESH Rx# :[id number] Heparin Sod,Pork in 0.45% 217.526 250.000 NaCl 25,000 unit In 0.45 % NaCl 1 250ml.bag @ 18 UNITS/KG/HR 14.58 mls/hr IV .[id number] DIPESH Rx#: [id number] Oral 1070 2280 720 Output: Urine 2150 900 450 Other: Voiding Method Urinal Urinal Urinal # Voids 3 - Exam Pleasant 83-year-old male with pain medications is able to speak but is having severe pain postoperative HEENT: Anicteric conjunctiva are pink and moist nasal mucosa grossly intact without significant lesions, there is no thrush. Neck: The neck is supple without significant lymphadenopathy or thyromegaly. Lungs: Good bilateral air entry without significant crackles or wheezing. There is no significant bronchial sounds. There is no egophony or dullness. Heart: Regular rate and rhythm with an audible S1-S2, no S3 no S4. There is no significant murmur click or rub, PMI was nondisplaced. Abdomen: Minimally obese Positive bowel sounds soft and nontender without palpable masses or organomegaly. There was no guarding or rebound. Extremities: The upper extremities have excellent pulses they are symmetric, no significant petechiae or telangiectasia. No splinter hemorrhages were noted. Lower extremities without edema. Any attempt for manipulation of the lower extremities and back results in severe pain Neuro: Awake alert oriented to person place and time. There are no acute new gross focal sensory motor deficits. The patient has equal strength 5+ the bilateral lower extremities at the knee distally, attempts to evaluate strength into the hips and thighs is with severe pain. Upper extremity is 5+ and symmetric - Labs CBC & Chem 7: 12/10/18 07:16 12/10/18 07:16 Labs: Abnormal Lab Results - Last 24 Hours (Table) 12/10/18 12/10/18 12/10/18 Range/Units 07:16 07:16 07:16 RBC 3.76 L (4.30-5.90) m/uL Hgb 10.9 L (13.0-17.5) gm/dL Hct 32.7 L (39.0-53.0) % RDW 15.9 H (11.5-15.5) % APTT 57.5 H (22.0-30.0) sec Chloride 110 H (98-107) mmol/L Creatinine 0.64 L (0.66-1.25) mg/dL Glucose 100 H (74-99) mg/dL Microbiology - Last 24 Hours (Table) 12/05/18 14:16 Anaerobic Culture - Final Other - Other Laboratory Results WBC 5.8 k/uL (3.8-10.6) 12/10/18 07:16 RBC 3.76 m/uL (4.30-5.90) L 12/10/18 07:16 Hgb 10.9 gm/dL (13.0-17.5) L 12/10/18 07:16 Hct 32.7 % (39.0-53.0) L 12/10/18 07:16 MCV 86.9 fL (80.0-100.0) 12/10/18 07:16 MCH 29.1 pg (25.0-35.0) 12/10/18 07:16 MCHC 33.4 g/dL (31.0-37.0) 12/10/18 07:16 RDW 15.9 % (11.5-15.5) H 12/10/18 07:16 Plt Count 248 k/uL (150-450) 12/10/18 07:16 Neutrophils % 57 % 12/10/18 07:16 Lymphocytes % 24 % 12/10/18 07:16 Monocytes % 7 % 12/10/18 07:16 Eosinophils % 8 % 12/10/18 07:16 Basophils % 1 % 12/10/18 07:16 Neutrophils # 3.3 k/uL (1.3-7.7) 12/10/18 07:16 Lymphocytes # 1.4 k/uL (1.0-4.8) 12/10/18 07:16 Monocytes # 0.4 k/uL (0-1.0) 12/10/18 07:16 Eosinophils # 0.5 k/uL (0-0.7) 12/10/18 07:16 Basophils # 0.0 k/uL (0-0.2) 12/10/18 07:16 Hypochromasia Slight 12/07/18 07:57 PT 11.3 sec (9.0-12.0) 12/06/18 15:25 INR 1.1 (<1.2) 12/06/18 15:25 APTT 57.5 sec (22.0-30.0) H 12/10/18 07:16 Sodium 142 mmol/L (137-145) 12/10/18 07:16 Potassium 3.7 mmol/L (3.5-5.1) 12/10/18 07:16 Chloride 110 mmol/L (98-107) H 12/10/18 07:16 Carbon Dioxide 27 mmol/L (22-30) 12/10/18 07:16 Anion Gap 5 mmol/L 12/10/18 07:16 BUN 9 mg/dL (9-20) 12/10/18 07:16 Creatinine 0.64 mg/dL (0.66-1.25) L 12/10/18 07:16 Est GFR (CKD-EPI)AfAm >90 (>60 ml/min/1.73 sqM) 12/10/18 07:16 Est GFR (CKD-EPI)NonAf >90 (>60 ml/min/1.73 sqM) 12/10/18 07:16 Glucose 100 mg/dL (74-99) H 12/10/18 07:16 POC Glucose (mg/dL) 128 mg/dL (75-99) H 12/07/18 17:14 POC Glu [employer] Safety Coordinator YOUNG Loreta Metz 12/07/18 17:[address] Glu mg/dL 131 12/02/18 12:44 Hemoglobin A1c 6.2 % (4.0-6.0) H 12/02/18 12:44 Calcium 9.4 mg/dL (8.4-10.2) 12/10/18 07:16 Magnesium 1.9 mg/dL (1.6-2.3) 12/09/18 07:23 Total Bilirubin 0.5 mg/dL (0.2-1.3) 12/04/18 03:05 Conjugated Bilirubin 0.0 mg/dL (0.0-0.3) 12/03/18 09:00 Unconjugated Bilirubin 0.5 mg/dL (0.0-1.1) 12/03/18 09:00 Delta Bilirubin 0.2 mg/dL (0.0-0.2) 12/03/18 09:00 AST 17 U/L (17-59) 12/04/18 03:05 ALT 25 U/L (21-72) 12/04/18 03:05 Alkaline Phosphatase 81 U/L (38-126) 12/04/18 03:05 Total Protein 6.1 g/dL (6.3-8.2) L 12/04/18 03:05 Albumin 2.9 g/dL (3.5-5.0) L 12/04/18 03:05 Tumor Marker AFP <2.5 ng/mL (0.0-7.9) 12/03/18 09:00 Free PSA TNP 12/03/18 09:00 % Free PSA TNP 12/03/18 09:00 Total PSA 20.6 ng/mL (<=4.0) H 12/03/18 09:00 Urine Color Yellow 12/02/18 16:00 Urine Appearance Cloudy (Clear) 12/02/18 16:00 Urine pH 6.0 (5.0-8.0) 12/02/18 16:00 Ur Specific [place] 1.015 (1.001-1.035) 12/02/18 16:00 Urine Protein 1+ (Negative) H 12/02/18 16:00 Urine Glucose (UA) Negative (Negative) 12/02/18 16:00 Urine Ketones Negative (Negative) 12/02/18 16:00 Urine Blood Moderate (Negative) H 12/02/18 16:00 Urine Nitrite Positive (Negative) 12/02/18 16:00 Urine Bilirubin Negative (Negative) 12/02/18 16:00 Urine Urobilinogen <2.0 mg/dL (<2.0) 12/02/18 16:00 Ur Leukocyte Esterase Large (Negative) H 12/02/18 16:00 Urine RBC 28 /hpf (0-5) H 12/02/18 16:00 Urine WBC 155 /hpf (0-5) H 12/02/18 16:00 Urine WBC Clumps Few /hpf (None) H 12/02/18 16:00 Urine Bacteria Moderate /hpf (None) H 12/02/18 16:00 Urine Mucus Few /hpf (None) H 12/02/18 16:00 Vancomycin Trough 14.2 ug/mL 12/08/18 05:26 Blood Type O Positive 12/05/18 09:20 Blood Type Confirm O Positive 12/05/18 05:44 Blood Type Recheck CABO Indicated 12/05/18 09:20 Antibody Screen NEGATIVE 12/05/18 09:20 Spec Expiration Date 12/08/2018 - 231912/05/18 09:20 Microbiology 12/05/18 14:16 Other - Other Anaerobic Culture - Final 12/05/18 14:16 Other - Other Gram Stain - Final 12/05/18 14:16 Other - Other Wound Culture - Final Escherichia coli 12/02/18 16:00 Urine,Voided Urine Culture - Final Escherichia coli Assessment and Plan (1) Chronic back pain Current Visit: Yes Status: Acute Code(s): M54.9 - DORSALGIA, UNSPECIFIED; G89.29 - OTHER CHRONIC PAIN SNOMED Code(s): 336837386 (2) Discitis of lumbar region Current Visit: Yes Status: Acute Code(s): M46.46 - DISCITIS, UNSPECIFIED, LUMBAR REGION SNOMED Code(s): 198150200 (3) E. coli urinary tract infection Narrative/Plan: 83-year-old male known to the infectious disease service for his audible bouts of urinary tract infections with multidrug resistant Escherichia coli who now presents to hospital with irretractable back pain. He hashad troubles with back pain in the past and has had workup performed. With the inferior vena cava clot workup then was performed for an underlying malignancy and it does appear that there is evidence of the hepatocellular carcinoma the liver as well as of the prostate carcinoma as noted by the lymph nodes in the pelvis. 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 Patient however now is developed the progressive and severe back pain to the point in time where he is no longer able to ambulate. The MRI reveals evidence of the extensive destruction to L4-L5 with the evidence of fluid in the intervertebral space consistent with infection as well as a small epidural abscess. The patient has been seen by orthopedic spine. The patient has significant physical symptoms and significant other pathology. I agree at this point in time that a surgical intervention would be of great utility in that it would give likely relief of pain by stabilization of the spine. It also give deep tissue cultures and pathology to further evaluate this lesion. With his multiple urinary tract infections it is possible that this could even be an E. coli infection within the space. The possibility of malignancy in this area is not completely excluded the possibility of malignancy and secondary infection is also of concern. Then vancomycin also added at this time pending further information given the evidence of the epidural abscess.Await further culture results and surgical data to further define the overall course of therapy. 12/07/2018 patient's postoperative other than postoperative pain seems to be relatively well. Currently receiving Maxipime and vancomycin. When the culture from the surgical site has come back as complete if no gram-positive organs or from the vancomycin may be discontinued. He will plan on leaving the hospital on intravenous antibiotic therapy likely Merrem is likely more cost effective and Maxipime 12/10/2018 patient is now awake alert oriented to person place and time. Other than pain at the site of the L4-L5 infection he is doing well. Confusion is resolved and he is back down to nearly his baseline mental status. A 6 weeks course of antibiotic therapy has discussed with the patient and family and likely would've [place] to receive his therapy both physical and antibiotics. We'll continue liaison to ensure cost-effective choice. Current Visit: Yes Status: Acute Code(s): N39.0 - URINARY TRACT INFECTION, SITE NOT SPECIFIED; B96.20 - UNSP ESCHERICHIA COLI THE CAUSE OF DISEASES CLASSD [facility] SNOMED Code(s): 517410642 (4) Prostate cancer Current Visit: Yes Status: Acute Code(s): C61 - MALIGNANT NEOPLASM OF PROSTATE SNOMED Code(s): 404938036 (5) Hepatocellular carcinoma Current Visit: Yes Status: Acute Code(s): C22.0 - LIVER CELL CARCINOMA SNOMED Code(s): 910547420
[2018-12-11] MEDS: CEFEPIME 1 GM in SODIUM CHLORIDE 0.9% 50 ML IVPB SCH ×3 (00:23→16:54)
--- NOTE | 2018-12-11 01:06 | P.PN ---
Subjective This is a pleasant 83 years old male with past medical history of liver cancer presents because of back pain. He is status post laminectomy and decompression of the spinal cord with debridement of epidural abscess at L4-L5, and partial corpectomy of L4 osteomyelitis. Orthopedic team and infectious team are following the patient. Patient is main complaint currently is his postop back pain, which is looks better controlled with Dilaudid and [place]. His pain came down today from 7 down to 4/10. He is not much in distress. No chest pain or dyspnea. No nausea vomiting. He has constipation probably from his pain medication. Wound culture is growing E. coli. Patient currently on vancomycin and cefepime. He was on xarelto, which is switched to heparin drip and need to switched back to xarelto upon discharge. Objective - Vital Signs Vital signs: Vital Signs Temp 97.7 F 12/10/18 05:00 Pulse 62 12/10/18 05:00 Resp 16 12/10/18 05:00 BP 150/85 12/10/18 05:00 Pulse Ox 98 12/10/18 05:00 Intake & Output 12/09/18 12/10/18 12/10/18 18:59 06:59 18:59 Intake Total 32.474 1887.526 903.617 Output Total 2150 Balance 32.474 -262.474 903.617 Weight 81 kg Intake: Intake, IV Titration 32.474 817.526 183.617 Amount 0.9% NaCl with KCl 40 Meq 600 /l 1,000 ml @ 75 mls/hr IV .[id number] DIPESH Rx#: [id number] Heparin Sod,Pork in 0.45% 32.474 217.526 183.617 NaCl 25,000 unit In 0.45 % NaCl 1 250ml.bag @ 18 UNITS/KG/HR 14.58 mls/hr IV .Q17H9M DIPESH Rx#: [id number] Oral 1070 720 Output: Urine 2150 Other: Voiding Method Urinal Urinal - Exam GENERAL: The patient is alert and oriented x3, not in any acute distress. Well developed, well nourished. HEENT: Pupils are round and equally reacting to light. EOMI. No scleral icterus. No conjunctival pallor. Normocephalic, atraumatic. No pharyngeal erythema. No thyromegaly. CARDIOVASCULAR: S1 and S2 present. No murmurs, rubs, or gallops. PULMONARY: Chest is clear to auscultation, no wheezing or crackles. ABDOMEN: Soft, nontender, nondistended, normoactive bowel sounds. No palpable organomegaly. -MUSCULOSKELETAL: No joint swelling or deformity. Back exam, patient refused because his painful : deferred to the orthopedic team EXTREMITIES: No cyanosis, clubbing, or pedal edema. NEUROLOGICAL: Gross neurological examination did not reveal any focal deficits. No weakness in the lower extremity SKIN: No rashes. - Labs CBC & Chem 7: 12/10/18 07:16 12/10/18 07:16 Labs: Abnormal Lab Results - Last 24 Hours (Table) 12/10/18 12/10/18 12/10/18 Range/Units 07:16 07:16 07:16 RBC 3.76 L (4.30-5.90) m/uL Hgb 10.9 L (13.0-17.5) gm/dL Hct 32.7 L (39.0-53.0) % RDW 15.9 H (11.5-15.5) % APTT 57.5 H (22.0-30.0) sec Chloride 110 H (98-107) mmol/L Creatinine 0.64 L (0.66-1.25) mg/dL Glucose 100 H (74-99) mg/dL Microbiology - Last 24 Hours (Table) 12/05/18 14:16 Anaerobic Culture - Final Other - Other Assessment and Plan Assessment: acute back pain secondary to diskitis and epidural abscess. 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 ID team are following the pt and they are managing the antibiotic . orthopedic following up with pt as well Labs and medication were reviewed.. Continue same treatment. Continue with symptomatic treatment. Resume home medication. Monitor lytes and vitals. DVT and GI prophylaxis. Further recommendations of the clinical course of the patient DVT prophylaxis: heparin GI Prophylaxis: protonix PT/OT: Pending Prognosis is guarded
[2018-12-11] MEDS: HYDROmorphone 2 MG TAB PO PRN (01:25)
[2018-12-11] MEDS: HYDROcodone/APAP 5-325MG 1 EACH TAB PO PRN (04:11)
[2018-12-11] MEDS: LEVOTHYROXINE 100 MCG TAB PO SCH (05:31)
[2018-12-11 07:05] LABS: Anisocytosis Slight; Basophils # (A) 0.1 k/uL (0-0.2); Basophils % (A) 1 %; Eosinophils # (A) 0.4 k/uL (0-0.7); Eosinophils % (A) 5 %; HCT 34.7 % (39.0-53.0); HGB 11.5 gm/dL (13.0-17.5); Lymphocytes # (A) 1.4 k/uL (1.0-4.8); Lymphocytes % (A) 17 %; MCH 28.5 pg (25.0-35.0); MCHC 33.1 g/dL (31.0-37.0); MCV 86.1 fL (80.0-100.0); Mean Platelet Volume 6.8; Monocytes # (A) 0.4 k/uL (0-1.0); Monocytes % (A) 5 %; Neutrophils # (A) 5.9 k/uL (1.3-7.7); Neutrophils % (A) 70 %; Platelet Count 285 k/uL (150-450); RBC 4.03 m/uL (4.30-5.90); RDW 16.1 % (11.5-15.5); WBC 8.3 k/uL (3.8-10.6)
[2018-12-11] MEDS: HYDROmorphone 4 MG TABLET PO PRN (08:13)
[2018-12-11] MEDS: CYCLOBENZAPRINE 5 MG TAB PO SCH ×3 (08:17→21:28)
[2018-12-11] MEDS: SENNOSIDES 8.6 MG TAB PO SCH (09:06)
[2018-12-11] MEDS: TAMSULOSIN 0.4 MG CAP.ER.24H PO SCH (09:06)
[2018-12-11] MEDS: ATENOLOL 25 MG TAB PO SCH (09:06)
[2018-12-11] MEDS: PANTOPRAZOLE 40 MG TABLET PO SCH (09:06)
[2018-12-11] MEDS: oxyCODONE-APAP 7.5-325MG 1 EACH TAB PO PRN (10:17)
[2018-12-11] MEDS: HEPARIN SOD,PORK IN 0.45% NACL 25,000 UNIT in 0.45% NACL 1 250ML.BAG IV SCH (12:01)
[2018-12-11] MEDS: 0.9% NACL WITH KCL 40 MEQ/L 1,000 ML IV SCH (12:02)
--- NOTE | 2018-12-11 12:36 | P.PN ---
Subjective Progress Note Date: 12/11/18 Principal diagnosis: New Dual Primary Malignancies, Increased pain. Late Entry patient seen in am Pathology resulted and did not show signs of malignancy from recent surgical intervention for diskitis/osteomyelitis L4-5 He is slowly improving daily, managment of pain medications PO is not helping, he is alternating PRN Dilaudid, Percocet and Ensign, which he states has not decreased pain to less than 8. Objective - Vital Signs Vital signs: Vital Signs Temp 98.7 F 12/11/18 11:18 Pulse 75 12/11/18 11:18 Resp 20 12/11/18 11:18 BP 167/93 12/11/18 11:18 Pulse Ox 98 12/11/18 11:18 Intake & Output 12/10/18 12/11/18 12/11/18 18:59 06:59 18:59 Intake Total 3180.000 1020 250.000 Output Total 900 450 Balance 2280.000 570 250.000 Weight 81 kg Intake: Intake, IV Titration 900.000 300 250.000 Amount 0.9% NaCl with KCl 40 Meq 600 300 /l 1,000 ml @ 75 mls/hr IV .[id number] DIPESH Rx#: [id number] Cefepime 1 gm In Sodium 50 Chloride 0.9% 50 ml @ 100 mls/hr IVPB Q8HR DIPESH Rx# :[id number] Heparin Sod,Pork in 0.45% 250.000 250.000 NaCl 25,000 unit In 0.45 % NaCl 1 250ml.bag @ 18 UNITS/KG/HR 14.58 mls/hr IV .Q17H9M DIPESH Rx#: [id number] Oral 2280 720 Output: Urine 900 450 Other: Voiding Method Urinal Urinal # Voids 3 600 - Exam Constitutional General appearance: no acute distress - EENT Eyes: EOMI, PERRLA ENT: hearing grossly normal, normal oropharynx - Neck Neck: no lymphadenopathy Thyroid: bilateral: normal size - Respiratory Respiratory: bilateral: CTA - Cardiovascular Rhythm: regular Heart sounds: normal: S1, S2 - Gastrointestinal General gastrointestinal: normal bowel sounds, soft - Integumentary Integumentary: normal - Musculoskeletal Musculoskeletal: generalized weakness, strength equal bilaterally - Psychiatric Psychiatric: A&O x's 3, appropriate affect - Labs CBC & Chem 7: 12/11/18 06:34 12/10/18 07:16 Labs: Abnormal Lab Results - Last 24 Hours (Table) 12/11/18 12/11/18 Range/Units 06:34 08:43 RBC 4.03 L (4.30-5.90) m/uL Hgb 11.5 L (13.0-17.5) gm/dL Hct 34.7 L (39.0-53.0) % RDW 16.1 H (11.5-15.5) % APTT 51.3 H (22.0-30.0) sec Assessment and Plan Plan: (1) Intractable low back pain Narrative/Plan: - The patient had similar symptoms that his initial presentation last month, his MRI at that time indicating no evidence of malignancy. - The symptoms were felt to be due to the moderate to severe disc disease noted at L5 L6. - Treatment as outpatient has been Narcotic and Steroid management, as well as , referral to PMR. They have not seen yet He is now presenting with progression in his symptoms. Repeat computed tomography scan at this time notes a possible paraspinal mass with destructive process, with differentials including malignancy as well as discitis with phlegmon. Based on the report, as well as personally reviewed the images, this actually appears to be a new finding or at least a major change from 6 weeks ago. - He is status post procedure with Orthopedic spine surgery - Dr. Acosta consulted regarding likely osteomyelitis/diskitis, plan for surgical intervention of spine abscess - Discussed results of PET and MRI in detail with radiology. I have reviewed with patient and family and plan will be to begin Hormonal therapy and plan for chemoembolization of local hepatocellular cancer with q3 month Lupron after acute infectious process is resolved Current Visit: Yes Status: Acute Code(s): M54.5 - LOW BACK PAIN SNOMED Code(s): 16371596962045137 (2) Inferior vena cava thromboembolism Narrative/Plan: - Likely secondary to malignancy/cies. Was on xarelto as outpatient - Heparin Drip at this time, as long as no post op bleeding and ok with ortho will convert - Since no signs of bleeding and pathology has resulted as negative will stop heparin drip and start back on PO AC therapy. Current Visit: No Status: Acute Priority: High Code(s): I82.220 - ACUTE EMBOLISM AND THROMBOSIS OF INFERIOR VENA CAVA SNOMED Code(s): 918500859 (3) Hepatocellular carcinoma Narrative/Plan: - Appears to be localized likely candidate chemoembolization of liver, will need to address acute lumbarsacral infectious process prior to intervention for liver lesion. Current Visit: Yes Status: Acute Code(s): C22.0 - LIVER CELL CARCINOMA SNOMED Code(s): 382895873 (4) Prostate cancer Narrative/Plan: - As noted the patient had multiple prior prostate biopsies that were negative. The diagnosis was made via lymph node biopsy last month. PSA has been stable in the low 20 range. Current Visit: Yes Status: Acute Code(s): C61 - MALIGNANT NEOPLASM OF PROSTATE SNOMED Code(s): 388940582 (5) Osteomyelitis/Diskitis: status Post Surgery 12/05/18. He may resume anticoagulation with heparin drip first 24-48 post op to ensure no bleeding, then will convert back to PO / - Per Ortho ok to resume AC, resumed Heparin drip on 12/07/18 - Awaiting Cultures to fully result from wound and Pathology: - Gram Negative Bacilli in wound (6) Ecoli UTI - Recurrent: - Massive prostate and new diagnosis of prostate cancer Plan: - Continue with adjustments of pain medications to a PO regiment and continuing to Encourage to increase activity - Pain seems controilled on current regimen - Supportive and infection management cont per Primary - Reviewed pathology as negative, Continue IV abx per ID - Stop Heparin Drip and restart PO AC therapy - Xarelto - Stop Dilaudid and Ensign. - Start MS Contin ER 15mg po q12 hours, MS IR every 4 hours PRN. Senna S 2 tabs daily.
[2018-12-11] MEDS ORDERED: SENNOSIDES-DOCUSATE SODIUM 1 EACH TAB PO STA (13:21)
[2018-12-11] MEDS ORDERED: MORPHINE SULFATE IR 15 MG TABLET PO PRN (13:21)
--- NOTE | 2018-12-11 13:44 | P.PN ---
Subjective Progress Note Date: 12/11/18 Principal diagnosis: Principal diagnoses: Status post L4-5 laminectomy and decompression with bilateral partial medial facetectomy and foraminotomy with irrigation and excisional debridement of epidural abscess with partial corpectomy of L4 osteomyelitis and repair of 2 mm incidental durotomy L4-5 and L5-S1 bony destructive changes compatible with acute discitis/ osteomyelitis Lumbar epidural abscess L4-5 spinal canal stenosis and neural foraminal stenosis Intractable low back pain Right lower extremity radiculopathy Hepatocellular cancer Prostate cancer Inability to ambulate due to pain 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 He is status post L4-5 laminectomy and decompression with bilateral partial medial facetectomy and foraminotomy with irrigation and excisional debridement of epidural abscess with partial corpectomy of L4 osteomyelitis and repair of 2 mm incidental durotomy performed on 12/05/2018. Since being seen and examined yesterday his symptoms have been improving. He is currently sitting in a bedside chair and states he has less pain in his lumbar spine and right lower extremity. He feels his symptoms are finally improving. He is not experiencing any spinal headaches. He states he has been eating and voiding without difficulty does not have much of an appetite. He has no new complaints of the bedside. He continues to be seen by Dr. Singletary in oncology, by Dr. Acosta in infectious disease, and by medicine. He continues to receive antibiotic treatment with vancomycin and cefepime. Cat Whiting FOREST ECOLOGIST is present at the bedside. She states her planning to adjust his pain medications. She states recent lymph node biopsy was positive for prostate cancer. Liver biopsy was positive for hepatocellular cancer. Patient's pain to be discharged to [facility] at the time of discharge. Heparin drip also plan to be discontinued and patient will be started on Plavix. Patient history: He was previously seen and examined in the hospital in September 2018. Since that time he has had a significant exacerbation of back pain. He states his back pain is better controlled while lying flat in bed. Currently his pain is severe down the right lower extremity with increased ambulation and activities. He states following previous discharge from the hospital he felt he was doing fairly well until this past 12/01/2018. Prior to that time he was able to ambulate with the assistance of a walker. At his last visit imaging showed changes within the liver and he was waiting for liver biopsy after ultrasound results showed the liver was enlarged with 2 hypoechoic mass suspicious for metastatic disease. He was found to have hepatocellular carcinoma. Given his severe pain in his lumbar spine, a PET scan was performed on 12/01/2018. A CT of the lumbar spine has also been performed as well as an MRI of the lumbar spine. On imaging he was found to have bony destructive changes at L4-5 and L5-S1 with evidence of paraspinal mass consistent with acute discitis/osteomyelitis along with epidural abscess. These findings were not evident on previous imaging taken at his last admission in September 2018. Patient has continued to follow with Dr. Singletary in oncology. His symptoms have progressed as compared to his previous admittance to the hospital. Patient does have a history of prostate cancer. Objective - Vital Signs Vital signs: Vital Signs Temp 98.7 F 12/11/18 11:18 Pulse 75 12/11/18 12:36 Resp 20 12/11/18 12:36 BP 167/93 12/11/18 11:18 Pulse Ox 98 12/11/18 11:18 Intake & Output 12/10/18 12/11/18 12/11/18 18:59 06:59 18:59 Intake Total 3180.000 1020 250.000 Output Total 900 450 Balance 2280.000 570 250.000 Weight 81 kg Intake: Intake, IV Titration 900.000 300 250.000 Amount 0.9% NaCl with KCl 40 Meq 600 300 /l 1,000 ml @ 75 mls/hr IV .[id number] DIPESH Rx#: [id number] Cefepime 1 gm In Sodium 50 Chloride 0.9% 50 ml @ 100 mls/hr IVPB Q8HR DIPESH Rx# :[id number] Heparin Sod,Pork in 0.45% 250.000 250.000 NaCl 25,000 unit In 0.45 % NaCl 1 250ml.bag @ 18 UNITS/KG/HR 14.58 mls/hr IV .Q17H9M DIPESH Rx#: [id number] Oral 2280 720 Output: Urine 900 450 Other: Voiding Method Urinal Urinal Urinal # Voids 3 600 - Exam Physical exam: Patient is awake, alert, and oriented 3 Vital signs stable Good chest excursion with deep inspiration and expiration Patient is currently sitting upright in a bedside chair Dressing is removed during physical examination changed to nonstick Telfa and Tegaderm Small light drainage with palpation at the superior portion of the incision site No significant pain with palpation of the incision site Dorsiflexion, plantarflexion, and extensor hallucis longus positive sustained bilaterally Lower extremity strength 5/5 bilaterally Patient is able to lift legs independently in bed without but movements are somewhat slow No pain with internal and external rotation of the hips bilaterally Neurovascularly intact - Labs CBC & Chem 7: 12/11/18 06:34 12/10/18 07:16 Labs: Abnormal Lab Results - Last 24 Hours (Table) 12/11/18 12/11/18 Range/Units 06:34 08:43 RBC 4.03 L (4.30-5.90) m/uL Hgb 11.5 L (13.0-17.5) gm/dL Hct 34.7 L (39.0-53.0) % RDW 16.1 H (11.5-15.5) % APTT 51.3 H (22.0-30.0) sec Assessment and Plan Assessment: Assessment: L4-5 laminectomy and decompression with bilateral partial medial facetectomy and foraminotomy with irrigation and excisional debridement of epidural abscess with partial corpectomy of L4 osteomyelitis and repair of 2 mm incidental durotomy L4-5 and L5-S1 bony destructive changes compatible with acute discitis/ osteomyelitis Lumbar epidural abscess L4-5 spinal canal stenosis and neural foraminal stenosis Intractable low back pain Right lower extremity radiculopathy Positive urine culture for E. coli Positive wound culture for E. 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 (1) Discitis of lumbar region Current Visit: Yes Status: Acute Code(s): M46.46 - DISCITIS, UNSPECIFIED, LUMBAR REGION SNOMED Code(s): 357418717 (2) Lumbar stenosis Current Visit: Yes Status: Acute Code(s): M48.061 - SPINAL STENOSIS, LUMBAR REGION WITHOUT NEUROGENIC [place] SNOMED Code(s): 46140009 (3) Lumbar herniated disc Current Visit: Yes Status: Acute Code(s): M51.26 - OTHER INTERVERTEBRAL DISC DISPLACEMENT, LUMBAR REGION SNOMED Code(s): 276197972 (4) Epidural abscess Current Visit: Yes Status: Acute Code(s): G06.2 - EXTRADURAL AND SUBDURAL ABSCESS, UNSPECIFIED SNOMED Code(s): 74050148 (5) Hepatocellular carcinoma Current Visit: Yes Status: Acute Code(s): C22.0 - LIVER CELL CARCINOMA SNOMED Code(s): 833550243 (6) Intractable low back pain Current Visit: Yes Status: Acute Code(s): M54.5 - LOW BACK PAIN SNOMED Code(s): 61172995445118553 (7) Prostate cancer Current Visit: Yes Status: Acute Code(s): C61 - MALIGNANT NEOPLASM OF PROSTATE SNOMED Code(s): 548064687 (8) Inferior vena cava thromboembolism Current Visit: No Status: Acute Priority: High Code(s): I82.220 - ACUTE EMBOLISM AND THROMBOSIS OF INFERIOR VENA CAVA SNOMED Code(s): 181890082 Plan: Plan: 1. We will continue with the plan as previously set forth. Patient is status post L4-5 laminectomy and decompression with bilateral partial medial facetectomy and foraminotomy with irrigation and excisional debridement of epidural abscess with partial corpectomy of L4 osteomyelitis and repair of 2 mm incidental durotomy. Following the repair of his incidental durotomy, patient was able to sit upright on 12/07/2018 without any evidence of spinal headaches. Patient has been able to increase mobility and ambulation since being seen and examined yesterday. He is currently sitting in a bedside chair without any difficulty. He has not been exercising any spinal headaches. We discussed he should continue with bracing while out of bed and doing increased activities and working with physical therapy. He should continue to work on increasing mobility and ambulation with the assistance of physical therapy. We are currently planning for any further surgical intervention at his lumbosacral spine. We'll plan to have other medical providers continue pain control with medications prescribed by them. From an orthopedic spine standpoint, patient will be clear for discharge once cleared by other medical providers. We will plan have him follow-up in the outpatient setting in approximately 1-2 weeks for further evaluation. 2. Patient will continue be seen in exam by medicine, infectious disease, pain management and oncology for his significant medical diagnoses; heparin drip will be discontinued and patient will be started on Plavix per oncology; patient 's pain medication will be adjusted by oncology.
[2018-12-11] MEDS: MORPHINE SULFATE ER 15 MG TABLET PO SCH ×2 (14:00→21:27)
[2018-12-11] MEDS: RIVAROXABAN 20 MG TAB PO SCH (16:54)
--- NOTE | 2018-12-11 22:40 | P.PN ---
Subjective Progress Note Date: 12/11/18 Very pleasant 83-year-old male is known to the infectious disease service because of his many bouts of very tract infection. The patient has a long-standing history of a very large prostate with difficulties with some urinary retention resulting urinary tract infection. Recent infection has been with E. coli with no oral options and is receiving a couple of courses of outpatient intravenous antibiotic therapy and has done well. In September he was hospitalized with some back pain evaluations were performed showing evidence of degenerative disease and with local care and treatment of urinary infection he improved. 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 Percutaneous biopsy at this facility was performed and was nondiagnostic. He was seen at [facility] also with nondiagnostic testing. He eventually was seen at [facility] where biopsy was successful of the liver which reveal evidence of adenocarcinoma , and there is also evidence of enlarged lymph nodes in the pelvis which were diagnostic of prostate carcinoma. The patient was receiving anticoagulation therapy and was in the midst of workup for his underlying cancers, outpatient PET scan had just been performed. If this workup was occurring the patient was having increasing amounts of back pain on the day of admission was no longer able to ambulate because his pain was so severe. This lady was brought into the hospital and workup has been initiated and he has now been seen by orthopedic spine in the infectious diseases consultation was initiated. The patient is now had the follow-up MRI reveals evidence of the destruction of L4-L5 which is new compared to the September 2018 MRI. With concerns to discitis and epidural abscess the consult was requested. 12/07/2018 patient has significant pain of the LS-spine from the recent surgery. He however is not having fevers or chills. Nursing relates he ate his lunch. But is having some confusion. 12/10/2018 patient is now awake alert oriented to person place and time aware of his very vivid hallucinations. Pain control good control at this time. He has been getting up with physical therapy. the pathology is reviewed with the family no evidence of malignancy, only infection including osteomyelitis. 12/11/2018 patient is feeling somewhat better today. Pain is better controlled at times. Working toward his transfer to the extended care facility to complete his course of intravenous antibiotic therapy. Have discussed the therapy with the liaison and fortunately Maxipime is an option for treatment for his somewhat resistant Escherichia coli. Objective - Vital Signs Vital signs: Vital Signs Temp 98.1 F 12/11/18 20:22 Pulse 72 12/11/18 20:22 Resp 14 12/11/18 20:22 BP 140/84 12/11/18 20:22 Pulse Ox 96 12/11/18 20:22 Intake & Output 12/11/18 12/11/18 12/12/18 06:59 18:59 06:59 Intake Total 1020 250.000 600 Output Total 450 450 Balance 570 -200.000 600 Intake: Intake, IV Titration 300 250.000 600 Amount 0.9% NaCl with KCl 40 Meq 300 600 /l 1,000 ml @ 75 mls/hr IV .[id number] DIPESH Rx#: [id number] Heparin Sod,Pork in 0.45% 250.000 NaCl 25,000 unit In 0.45 % NaCl 1 250ml.bag @ 18 UNITS/KG/HR 14.58 mls/hr IV .Q17H9M DIPESH Rx#: [id number] Oral 720 0 Output: Urine 450 450 Other: Voiding Method Urinal Urinal Urinal # Voids 600 3 - Exam Pleasant 83-year-old male with pain medications is able to speak but is having severe pain postoperative HEENT: Anicteric conjunctiva are pink and moist nasal mucosa grossly intact without significant lesions, there is no thrush. Neck: The neck is supple without significant lymphadenopathy or thyromegaly. Lungs: Good bilateral air entry without significant crackles or wheezing. There is no significant bronchial sounds. There is no egophony or dullness. Heart: Regular rate and rhythm with an audible S1-S2, no S3 no S4. There is no significant murmur click or rub, PMI was nondisplaced. Abdomen: Minimally obese Positive bowel sounds soft and nontender without palpable masses or organomegaly. There was no guarding or rebound. Extremities: The upper extremities have excellent pulses they are symmetric, no significant petechiae or telangiectasia. No splinter hemorrhages were noted. Lower extremities without edema. Any attempt for manipulation of the lower extremities and back results in severe pain Neuro: Awake alert oriented to person place and time. There are no acute new gross focal sensory motor deficits. The patient has equal strength 5+ the bilateral lower extremities at the knee distally, attempts to evaluate strength into the hips and thighs is with severe pain. Upper extremity is 5+ and symmetric - Labs CBC & Chem 7: 12/11/18 06:34 12/10/18 07:16 Labs: Abnormal Lab Results - Last 24 Hours (Table) 12/11/18 12/11/18 Range/Units 06:34 08:43 RBC 4.03 L (4.30-5.90) m/uL Hgb 11.5 L (13.0-17.5) gm/dL Hct 34.7 L (39.0-53.0) % RDW 16.1 H (11.5-15.5) % APTT 51.3 H (22.0-30.0) sec Laboratory Results WBC 8.3 k/uL (3.8-10.6) 12/11/18 06:34 RBC 4.03 m/uL (4.30-5.90) L 12/11/18 06:34 Hgb 11.5 gm/dL (13.0-17.5) L 12/11/18 06:34 Hct 34.7 % (39.0-53.0) L 12/11/18 06:34 MCV 86.1 fL (80.0-100.0) 12/11/18 06:34 MCH 28.5 pg (25.0-35.0) 12/11/18 06:34 MCHC 33.1 g/dL (31.0-37.0) 12/11/18 06:34 RDW 16.1 % (11.5-15.5) H 12/11/18 06:34 Plt Count 285 k/uL (150-450) 12/11/18 06:34 Neutrophils % 70 % 12/11/18 06:34 Lymphocytes % 17 % 12/11/18 06:34 Monocytes % 5 % 12/11/18 06:34 Eosinophils % 5 % 12/11/18 06:34 Basophils % 1 % 12/11/18 06:34 Neutrophils # 5.9 k/uL (1.3-7.7) 12/11/18 06:34 Lymphocytes # 1.4 k/uL (1.0-4.8) 12/11/18 06:34 Monocytes # 0.4 k/uL (0-1.0) 12/11/18 06:34 Eosinophils # 0.4 k/uL (0-0.7) 12/11/18 06:34 Basophils # 0.1 k/uL (0-0.2) 12/11/18 06:34 Hypochromasia Slight 12/07/18 07:57 Anisocytosis Slight 12/11/18 06:34 PT 11.3 sec (9.0-12.0) 12/06/18 15:25 INR 1.1 (<1.2) 12/06/18 15:25 APTT 51.3 sec (22.0-30.0) H 12/11/18 08:43 Sodium 142 mmol/L (137-145) 12/10/18 07:16 Potassium 3.7 mmol/L (3.5-5.1) 12/10/18 07:16 Chloride 110 mmol/L (98-107) H 12/10/18 07:16 Carbon Dioxide 27 mmol/L (22-30) 12/10/18 07:16 Anion Gap 5 mmol/L 12/10/18 07:16 BUN 9 mg/dL (9-20) 12/10/18 07:16 Creatinine 0.64 mg/dL (0.66-1.25) L 12/10/18 07:16 Est GFR (CKD-EPI)AfAm >90 (>60 ml/min/1.73 sqM) 12/10/18 07:16 Est GFR (CKD-EPI)NonAf >90 (>60 ml/min/1.73 sqM) 12/10/18 07:16 Glucose 100 mg/dL (74-99) H 12/10/18 07:16 POC Glucose (mg/dL) 128 mg/dL (75-99) H 12/07/18 17:14 POC Glu [employer] Manager ID Loreta Metz 12/07/18 17:[address] Glu mg/dL 131 12/02/18 12:44 Hemoglobin A1c 6.2 % (4.0-6.0) H 12/02/18 12:44 Calcium 9.4 mg/dL (8.4-10.2) 12/10/18 07:16 Magnesium 1.9 mg/dL (1.6-2.3) 12/09/18 07:23 Total Bilirubin 0.5 mg/dL (0.2-1.3) 12/04/18 03:05 Conjugated Bilirubin 0.0 mg/dL (0.0-0.3) 12/03/18 09:00 Unconjugated Bilirubin 0.5 mg/dL (0.0-1.1) 12/03/18 09:00 Delta Bilirubin 0.2 mg/dL (0.0-0.2) 12/03/18 09:00 AST 17 U/L (17-59) 12/04/18 03:05 ALT 25 U/L (21-72) 12/04/18 03:05 Alkaline Phosphatase 81 U/L (38-126) 12/04/18 03:05 Total Protein 6.1 g/dL (6.3-8.2) L 12/04/18 03:05 Albumin 2.9 g/dL (3.5-5.0) L 12/04/18 03:05 Tumor Marker AFP <2.5 ng/mL (0.0-7.9) 12/03/18 09:00 Free PSA TNP 12/03/18 09:00 % Free PSA TNP 12/03/18 09:00 Total PSA 20.6 ng/mL (<=4.0) H 12/03/18 09:00 Urine Color Yellow 12/02/18 16:00 Urine Appearance Cloudy (Clear) 12/02/18 16:00 Urine pH 6.0 (5.0-8.0) 12/02/18 16:00 Ur Specific B[place] 1.015 (1.001-1.035) 12/02/18 16:00 Urine Protein 1+ (Negative) H 12/02/18 16:00 Urine Glucose (UA) Negative (Negative) 12/02/18 16:00 Urine Ketones Negative (Negative) 12/02/18 16:00 Urine Blood Moderate (Negative) H 12/02/18 16:00 Urine Nitrite Positive (Negative) 12/02/18 16:00 Urine Bilirubin Negative (Negative) 12/02/18 16:00 Urine Urobilinogen <2.0 mg/dL (<2.0) 12/02/18 16:00 Ur Leukocyte Esterase Large (Negative) H 12/02/18 16:00 Urine RBC 28 /hpf (0-5) H 12/02/18 16:00 Urine WBC 155 /hpf (0-5) H 12/02/18 16:00 Urine WBC Clumps Few /hpf (None) H 12/02/18 16:00 Urine Bacteria Moderate /hpf (None) H 12/02/18 16:00 Urine Mucus Few /hpf (None) H 12/02/18 16:00 Vancomycin Trough 14.2 ug/mL 12/08/18 05:26 Blood Type O Positive 12/05/18 09:20 Blood Type Confirm O Positive 12/05/18 05:44 Blood Type Recheck CABO Indicated 12/05/18 09:20 Antibody Screen NEGATIVE 12/05/18 09:20 Spec Expiration Date 12/08/2018 - 2320 12/05/18 09:20 Microbiology 12/05/18 14:16 Other - Other Anaerobic Culture - Final 12/05/18 14:16 Other - Other Gram Stain - Final 12/05/18 14:16 Other - Other Wound Culture - Final Escherichia coli 12/02/18 16:00 Urine,Voided Urine Culture - Final Escherichia coli Assessment and Plan (1) Chronic back pain Current Visit: Yes Status: Acute Code(s): M54.9 - DORSALGIA, UNSPECIFIED; G89.29 - OTHER CHRONIC PAIN SNOMED Code(s): 005768444 (2) Discitis of lumbar region Current Visit: Yes Status: Acute Code(s): M46.46 - DISCITIS, UNSPECIFIED, LUMBAR REGION SNOMED Code(s): 986261486 (3) E. coli urinary tract infection Narrative/Plan: 83-year-old male known to the infectious disease service for his audible bouts of urinary tract infections with multidrug resistant Escherichia coli who now presents to hospital with irretractable back pain. He hashad troubles with back pain in the past and has had workup performed. With the inferior vena cava clot workup then was performed for an underlying malignancy and it does appear that there is evidence of the hepatocellular carcinoma the liver as well as of the prostate carcinoma as noted by the lymph nodes in the pelvis. 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 Patient however now is developed the progressive and severe back pain to the point in time where he is no longer able to ambulate. The MRI reveals evidence of the extensive destruction to L4-L5 with the evidence of fluid in the intervertebral space consistent with infection as well as a small epidural abscess. The patient has been seen by orthopedic spine. The patient has significant physical symptoms and significant other pathology. I agree at this point in time that a surgical intervention would be of great utility in that it would give likely relief of pain by stabilization of the spine. It also give deep tissue cultures and pathology to further evaluate this lesion. With his multiple urinary tract infections it is possible that this could even be an E. coli infection within the space. The possibility of malignancy in this area is not completely excluded the possibility of malignancy and secondary infection is also of concern. Then vancomycin also added at this time pending further information given the evidence of the epidural abscess.Await further culture results and surgical data to further define the overall course of therapy. 12/07/2018 patient's postoperative other than postoperative pain seems to be relatively well. Currently receiving Maxipime and vancomycin. When the culture from the surgical site has come back as complete if no gram-positive organs or from the vancomycin may be discontinued. He will plan on leaving the hospital on intravenous antibiotic therapy likely Merrem is likely more cost effective and Maxipime 12/10/2018 patient is now awake alert oriented to person place and time. Other than pain at the site of the L4-L5 infection he is doing well. Confusion is resolved and he is back down to nearly his baseline mental status. A 6 weeks course of antibiotic therapy has discussed with the patient and family and likely would've [facility] to receive his therapy both physical and antibiotics. We'll continue liaison to ensure cost-effective choice. 12/11/2018 patient is showing some improvement but still has severe pain when he is moving from place to place. He however relates that today he had up to the chair in the first bit of time up in the chair was miserable that he was able to fall asleep and his pain has been somewhat improved ever since. 6 weeks of antibiotic therapy to extended care facility is being arranged cefepime appears to be a covered benefit. Current Visit: Yes Status: Acute Code(s): N39.0 - URINARY TRACT INFECTION, SITE NOT SPECIFIED; B96.20 - UNSP ESCHERICHIA COLI THE CAUSE OF DISEASES CLASSD [facility] SNOMED Code(s): 607943021 (4) Prostate cancer Current Visit: Yes Status: Acute Code(s): C61 - MALIGNANT NEOPLASM OF PROSTATE SNOMED Code(s): 629918409 (5) Hepatocellular carcinoma Current Visit: Yes Status: Acute Code(s): C22.0 - LIVER CELL CARCINOMA SNOMED Code(s): 867091878
--- NOTE | 2018-12-11 23:59 | P.PN ---
Subjective This is a pleasant 83 years old male with past medical history of liver cancer presents because of back pain. He is status post laminectomy and decompression of the spinal cord with debridement of epidural abscess at L4-L5, and partial corpectomy of L4 osteomyelitis. Orthopedic team and infectious team are following the patient. Patient is main complaint currently is his postop back pain, which is looks better controlled with Dilaudid and [place]. His pain came down today from 7 down to 4/10. He is not much in distress. No chest pain or dyspnea. No nausea vomiting. He has constipation probably from his pain medication. Wound culture is growing E. coli. Patient currently on vancomycin and cefepime. He was on xarelto, which is switched to heparin drip and need to switched back to xarelto upon discharge. 12/11/18 pt is still has significant pain in his back although it is improving and better controled, no chest pain , no dyspnea , pt on antibiotic as per ID , pt may need picc/midline upon discharge for extending antibiotic therapy for 6 weeks as per ID team Objective - Vital Signs Vital signs: Vital Signs Temp 98.1 F 12/11/18 20:22 Pulse 72 12/11/18 20:22 Resp 14 12/11/18 20:22 BP 140/84 12/11/18 20:22 Pulse Ox 96 12/11/18 20:22 Intake & Output 12/11/18 12/11/18 12/12/18 06:59 18:59 06:59 Intake Total 1020 250.000 Output Total 450 450 Balance 570 -200.000 Intake: Intake, IV Titration 300 250.000 Amount 0.9% NaCl with KCl 40 Meq 300 /l 1,000 ml @ 75 mls/hr IV .[id number] DIPESH Rx#: [id number] Heparin Sod,Pork in 0.45% 250.000 NaCl 25,000 unit In 0.45 % NaCl 1 250ml.bag @ 18 UNITS/KG/HR 14.58 mls/hr IV .[id number] DIPESH Rx#: [id number] Oral 720 0 Output: Urine 450 450 Other: Voiding Method Urinal Urinal Urinal # Voids 600 3 - Exam GENERAL: The patient is alert and oriented x3, not in any acute distress. Well developed, well nourished. HEENT: Pupils are round and equally reacting to light. EOMI. No scleral icterus. No conjunctival pallor. Normocephalic, atraumatic. No pharyngeal erythema. No thyromegaly. CARDIOVASCULAR: S1 and S2 present. No murmurs, rubs, or gallops. PULMONARY: Chest is clear to auscultation, no wheezing or crackles. ABDOMEN: Soft, nontender, nondistended, normoactive bowel sounds. No palpable organomegaly. -MUSCULOSKELETAL: No joint swelling or deformity. Back exam, patient refused because his painful : deferred to the orthopedic team EXTREMITIES: No cyanosis, clubbing, or pedal edema. NEUROLOGICAL: Gross neurological examination did not reveal any focal deficits. No weakness in the lower extremity SKIN: No rashes. - Labs CBC & Chem 7: 12/11/18 06:34 12/10/18 07:16 Labs: Abnormal Lab Results - Last 24 Hours (Table) 12/11/18 12/11/18 Range/Units 06:34 08:43 RBC 4.03 L (4.30-5.90) m/uL Hgb 11.5 L (13.0-17.5) gm/dL Hct 34.7 L (39.0-53.0) % RDW 16.1 H (11.5-15.5) % APTT 51.3 H (22.0-30.0) sec Assessment and Plan Assessment: acute back pain secondary to diskitis and epidural abscess. 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 ID team are following the pt and they are managing the antibiotic . orthopedic following up with pt as well Labs and medication were reviewed.. Continue same treatment. Continue with symptomatic treatment. Resume home medication. Monitor lytes and vitals. DVT and GI prophylaxis. Further recommendations of the clinical course of the patient DVT prophylaxis: heparin GI Prophylaxis: protonix PT/OT: Pending Prognosis is guarded
[2018-12-12] MEDS: CEFEPIME 1 GM in SODIUM CHLORIDE 0.9% 50 ML IVPB SCH ×4 (01:00→23:01)
[2018-12-12] MEDS: 0.9% NACL WITH KCL 40 MEQ/L 1,000 ML IV SCH ×3 (01:00→23:56)
[2018-12-12] MEDS: LEVOTHYROXINE 100 MCG TAB PO SCH (06:19)
[2018-12-12] MEDS: PANTOPRAZOLE 40 MG TABLET PO SCH (07:50)
[2018-12-12] MEDS: CYCLOBENZAPRINE 5 MG TAB PO SCH (07:50)
[2018-12-12] MEDS: TAMSULOSIN 0.4 MG CAP.ER.24H PO SCH (07:50)
[2018-12-12] MEDS: MORPHINE SULFATE ER 15 MG TABLET PO SCH ×2 (07:51→22:20)
[2018-12-12] MEDS: ATENOLOL 25 MG TAB PO SCH (07:51)
[2018-12-12] MEDS: oxyCODONE-APAP 7.5-325MG 1 EACH TAB PO PRN (07:52)
[2018-12-12] MEDS ORDERED: SENNOSIDES-DOCUSATE SODIUM 1 EACH TAB PO SCH (09:00)
--- NOTE | 2018-12-12 09:31 | P.PN ---
Subjective Progress Note Date: 12/12/18 Principal diagnosis: Principal diagnoses: Status post L4-5 laminectomy and decompression with bilateral partial medial facetectomy and foraminotomy with irrigation and excisional debridement of epidural abscess with partial corpectomy of L4 osteomyelitis and repair of 2 mm incidental durotomy L4-5 and L5-S1 bony destructive changes compatible with acute discitis/ osteomyelitis Lumbar epidural abscess L4-5 spinal canal stenosis and neural foraminal stenosis Intractable low back pain Right lower extremity radiculopathy Hepatocellular cancer Prostate cancer Inability to ambulate due to pain 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 He is status post L4-5 laminectomy and decompression with bilateral partial medial facetectomy and foraminotomy with irrigation and excisional debridement of epidural abscess with partial corpectomy of L4 osteomyelitis and repair of 2 mm incidental durotomy performed on 12/05/2018. Since being seen and examined yesterday his symptoms have remained the same without significant change. He is currently sitting lying in bed and states he has less pain in his lumbar spine and right lower extremity. He is not experiencing any spinal headaches. He states he has been eating and voiding without difficulty does not have much of an appetite. He has no new complaints of the bedside. He continues to be seen by Dr. Singletary in oncology, by Dr. Acosta in infectious disease, and by medicine. He continues to receive antibiotic treatment with vancomycin and cefepime. Cat Whiting RECORDS TECHNICIAN is present at the bedside. She states her planning to adjust his pain medications. She states recent lymph node biopsy was positive for prostate cancer. Liver biopsy was positive for hepatocellular cancer. Patient's pain to be discharged to [facility] at the time of discharge. Heparin drip also plan to be discontinued and patient will be started on Xarelto not Plavix as I previously stated. Patient history: He was previously seen and examined in the hospital in September 2018. Since that time he has had a significant exacerbation of back pain. He states his back pain is better controlled while lying flat in bed. Currently his pain is severe down the right lower extremity with increased ambulation and activities. He states following previous discharge from the hospital he felt he was doing fairly well until this past 12/01/2018. Prior to that time he was able to ambulate with the assistance of a walker. At his last visit imaging showed changes within the liver and he was waiting for liver biopsy after ultrasound results showed the liver was enlarged with 2 hypoechoic mass suspicious for metastatic disease. He was found to have hepatocellular carcinoma. Given his severe pain in his lumbar spine, a PET scan was performed on 12/01/2018. A CT of the lumbar spine has also been performed as well as an MRI of the lumbar spine. On imaging he was found to have bony destructive changes at L4-5 and L5-S1 with evidence of paraspinal mass consistent with acute discitis/osteomyelitis along with epidural abscess. These findings were not evident on previous imaging taken at his last admission in September 2018. Patient has continued to follow with Dr. Singletary in oncology. His symptoms have progressed as compared to his previous admittance to the hospital. Patient does have a history of prostate cancer. Objective - Vital Signs Vital signs: Vital Signs Temp 97.1 F L 12/12/18 05:00 Pulse 82 12/12/18 05:00 Resp 18 12/12/18 05:00 BP 150/85 12/12/18 05:00 Pulse Ox 96 12/12/18 05:00 Intake & Output 12/11/18 12/12/18 12/12/18 18:59 06:59 18:59 Intake Total 619.910 7257 Output Total 450 Balance -655.907 5669 Intake: Intake, IV Titration 916.964 8521 Amount 0.9% NaCl with KCl 40 Meq 1200 /l 1,000 ml @ 75 mls/hr IV .[id number] DIPESH Rx#: [id number] Cefepime 1 gm In Sodium 50 Chloride 0.9% 50 ml @ 100 mls/hr IVPB Q8HR DIPESH Rx# :[id number] Heparin Sod,Pork in 0.45% 250.000 NaCl 25,000 unit In 0.45 % NaCl 1 250ml.bag @ 18 UNITS/KG/HR 14.58 mls/hr IV .Q17H9M DIPESH Rx#: [id number] Oral 0 Output: Urine 450 Other: Voiding Method Urinal Urinal Urinal # Voids 3 3 - Exam Physical exam: Patient is awake, alert, and oriented 3 Vital signs stable Good chest excursion with deep inspiration and expiration Patient is currently lying in bed Nonstick Telfa and Tegaderm is intact over the incision site Dressing is wet but sealed with some blood covering the Telfa No significant pain with palpation of the incision site Dorsiflexion, plantarflexion, and extensor hallucis longus positive sustained bilaterally Lower extremity strength 5/5 bilaterally Patient is able to lift legs independently in bed without but movements are somewhat slow - Labs CBC & Chem 7: 12/11/18 06:34 12/10/18 07:16 Labs: Abnormal Lab Results - Last 24 Hours (Table) 12/11/18 Range/Units 08:43 APTT 51.3 H (22.0-30.0) sec Assessment and Plan Assessment: Assessment: L4-5 laminectomy and decompression with bilateral partial medial facetectomy and foraminotomy with irrigation and excisional debridement of epidural abscess with partial corpectomy of L4 osteomyelitis and repair of 2 mm incidental durotomy L4-5 and L5-S1 bony destructive changes compatible with acute discitis/ osteomyelitis Lumbar epidural abscess L4-5 spinal canal stenosis and neural foraminal stenosis Intractable low back pain Right lower extremity radiculopathy Positive urine culture for E. coli Positive wound culture for E. 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 (1) Discitis of lumbar region Current Visit: Yes Status: Acute Code(s): M46.46 - DISCITIS, UNSPECIFIED, LUMBAR REGION SNOMED Code(s): 415621843 (2) Lumbar stenosis Current Visit: Yes Status: Acute Code(s): M48.061 - SPINAL STENOSIS, LUMBAR REGION WITHOUT NEUROGENIC [place] SNOMED Code(s): 80239576 (3) Lumbar herniated disc Current Visit: Yes Status: Acute Code(s): M51.26 - OTHER INTERVERTEBRAL DISC DISPLACEMENT, LUMBAR REGION SNOMED Code(s): 819328032 (4) Epidural abscess Current Visit: Yes Status: Acute Code(s): G06.2 - EXTRADURAL AND SUBDURAL ABSCESS, UNSPECIFIED SNOMED Code(s): 83904159 (5) Hepatocellular carcinoma Current Visit: Yes Status: Acute Code(s): C22.0 - LIVER CELL CARCINOMA SNOMED Code(s): 035361723 (6) Intractable low back pain Current Visit: Yes Status: Acute Code(s): M54.5 - LOW BACK PAIN SNOMED Code(s): 80638580833383577 (7) Prostate cancer Current Visit: Yes Status: Acute Code(s): C61 - MALIGNANT NEOPLASM OF PROSTATE SNOMED Code(s): 380523294 (8) Inferior vena cava thromboembolism Current Visit: No Status: Acute Priority: High Code(s): I82.220 - ACUTE EMBOLISM AND THROMBOSIS OF INFERIOR VENA CAVA SNOMED Code(s): 905092495 Plan: Plan: 1. We will continue with the plan as previously set forth. Patient is status post L4-5 laminectomy and decompression with bilateral partial medial facetectomy and foraminotomy with irrigation and excisional debridement of epidural abscess with partial corpectomy of L4 osteomyelitis and repair of 2 mm incidental durotomy. Following the repair of his incidental durotomy, patient was able to sit upright on 12/07/2018 without any evidence of spinal headaches. Patient has been able to increase mobility and ambulation since being seen and examined yesterday. He is currently sitting in a bedside chair without any difficulty. He has not been experiencing any spinal headaches. We discussed he should continue with bracing while out of bed and doing increased activities and working with physical therapy. He should continue to work on increasing mobility and ambulation with the assistance of physical therapy. We are currently planning for any further surgical intervention at his lumbosacral spine. We'll plan to have other medical providers continue pain control with medications prescribed by them. From an orthopedic spine standpoint, patient will be clear for discharge once cleared by other medical providers. We will plan have him follow-up in the outpatient setting in approximately 1-2 weeks for further evaluation. 2. Patient has continued to have some drainage from a small opening in the superior portion of his incision. There is no evidence of significant dehiscence of the incision site. The continued drainage may be due to anticoagulation medications. Continue with daily dressing changes with nonstick Telfa and Tegaderm as needed. 2. Patient will continue be seen in exam by medicine, infectious disease, pain management and oncology for his significant medical diagnoses; heparin drip will be discontinued and patient has been started on Xarelto per oncology; patient's pain medication has been adjusted by oncology. Time with Patient: Less than 30
[2018-12-12] MEDS: MORPHINE SULFATE IR 15 MG TABLET PO PRN ×2 (15:08→18:31)
[2018-12-12] MEDS: CYCLOBENZAPRINE 10 MG TAB PO SCH ×2 (15:08→22:19)
[2018-12-12] MEDS: POLYETHYLENE GLYCOL 3350 17 GM POWD.PACK PO SCH (15:10)
[2018-12-12] MEDS: RIVAROXABAN 20 MG TAB PO SCH (17:30)
--- NOTE | 2018-12-12 18:18 | P.PN ---
Subjective Progress Note Date: 12/12/18 Principal diagnosis: New Dual Primary Malignancies, Increased pain. Still with pain but improved on the morphine. Objective - Vital Signs Vital signs: Vital Signs Temp 98.1 F 12/12/18 16:41 Pulse 76 12/12/18 16:55 Resp 16 12/12/18 16:41 BP 125/81 12/12/18 16:41 Pulse Ox 97 12/12/18 16:41 Intake & Output 12/11/18 12/12/18 12/12/18 18:59 06:59 18:59 Intake Total 144.658 8656 Output Total 450 1000 Balance -240.111 8435 -1000 Intake: Intake, IV Titration 589.251 4478 Amount 0.9% NaCl with KCl 40 Meq 1200 /l 1,000 ml @ 75 mls/hr IV .[id number] DIPESH Rx#: [id number] Cefepime 1 gm In Sodium 50 Chloride 0.9% 50 ml @ 100 mls/hr IVPB Q8HR DIPESH Rx# :[id number] Heparin Sod,Pork in 0.45% 250.000 NaCl 25,000 unit In 0.45 % NaCl 1 250ml.bag @ 18 UNITS/KG/HR 14.58 mls/hr IV .Q17H9M DIPESH Rx#: [id number] Oral 0 Output: Urine 450 1000 Other: Voiding Method Urinal Urinal Urinal # Voids 3 3 - Exam Constitutional General appearance: no acute distress - EENT Eyes: EOMI, PERRLA ENT: hearing grossly normal, normal oropharynx - Neck Neck: no lymphadenopathy Thyroid: bilateral: normal size - Respiratory Respiratory: bilateral: CTA - Cardiovascular Rhythm: regular Heart sounds: normal: S1, S2 - Gastrointestinal General gastrointestinal: normal bowel sounds, soft - Integumentary Integumentary: normal - Musculoskeletal Musculoskeletal: generalized weakness, strength equal bilaterally - Psychiatric Psychiatric: A&O x's 3, appropriate affect - Labs CBC & Chem 7: 12/11/18 06:34 12/10/18 07:16 Assessment and Plan Plan: (1) Intractable low back pain Narrative/Plan: - The patient had similar symptoms that his initial presentation last month, his MRI at that time indicating no evidence of malignancy. - The symptoms were felt to be due to the moderate to severe disc disease noted at L5 L6. - Treatment as outpatient has been Narcotic and Steroid management, as well as , referral to PMR. They have not seen yet He is now presenting with progression in his symptoms. Repeat computed tomography scan at this time notes a possible paraspinal mass with destructive process, with differentials including malignancy as well as discitis with phlegmon. Based on the report, as well as personally reviewed the images, this actually appears to be a new finding or at least a major change from 6 weeks ago. - He is status post procedure with Orthopedic spine surgery - Dr. Acosta consulted regarding likely osteomyelitis/diskitis, plan for surgical intervention of spine abscess - Discussed results of PET and MRI in detail with radiology. I have reviewed with patient and family and plan will be to begin Hormonal therapy and plan for chemoembolization of local hepatocellular cancer with q3 month Lupron after acute infectious process is resolved Current Visit: Yes Status: Acute Code(s): M54.5 - LOW BACK PAIN SNOMED Code(s): 14407636757602244 (2) Inferior vena cava thromboembolism Narrative/Plan: - Likely secondary to malignancy/cies. Was on xarelto as outpatient - Heparin Drip at this time, as long as no post op bleeding and ok with ortho will convert - Since no signs of bleeding and pathology has resulted as negative will stop heparin drip and start back on PO AC therapy. Current Visit: No Status: Acute Priority: High Code(s): I82.220 - ACUTE EMBOLISM AND THROMBOSIS OF INFERIOR VENA CAVA SNOMED Code(s): 985851428 (3) Hepatocellular carcinoma Narrative/Plan: - Appears to be localized likely candidate chemoembolization of liver, will need to address acute lumbarsacral infectious process prior to intervention for liver lesion. Current Visit: Yes Status: Acute Code(s): C22.0 - LIVER CELL CARCINOMA SNOMED Code(s): 598669302 (4) Prostate cancer Narrative/Plan: - As noted the patient had multiple prior prostate biopsies that were negative. The diagnosis was made via lymph node biopsy last month. PSA has been stable in the low 20 range. Current Visit: Yes Status: Acute Code(s): C61 - MALIGNANT NEOPLASM OF PROSTATE SNOMED Code(s): 939042792 (5) Osteomyelitis/Diskitis: status Post Surgery 12/05/18. He may resume anticoagulation with heparin drip first 24-48 post op to ensure no bleeding, then will convert back to PO / - Per Ortho ok to resume AC, resumed Heparin drip on 12/07/18 - Awaiting Cultures to fully result from wound and Pathology: - Gram Negative Bacilli in wound (6) Ecoli UTI - Recurrent: - Massive prostate and new diagnosis of prostate cancer Plan: - Continue with adjustments of pain medications to a PO regiment and continuing to Encourage to increase activity - Increase MS Contin ER 30mg po q12 hours, MS IR every 3 hours PRN. Senna S 2 tabs daily. DC Oxycodone - Increase Flexeril to 10mg - COntinue Xarelto daily
--- NOTE | 2018-12-12 20:46 | P.PN ---
Subjective This is a pleasant 83 years old male with past medical history of liver cancer presents because of back pain. He is status post laminectomy and decompression of the spinal cord with debridement of epidural abscess at L4-L5, and partial corpectomy of L4 osteomyelitis. Orthopedic team and infectious team are following the patient. Patient is main complaint currently is his postop back pain, which is looks better controlled with Dilaudid and [place]. His pain came down today from 7 down to 4/10. He is not much in distress. No chest pain or dyspnea. No nausea vomiting. He has constipation probably from his pain medication. Wound culture is growing E. coli. Patient currently on vancomycin and cefepime. He was on xarelto, which is switched to heparin drip and need to switched back to xarelto upon discharge. 12/11/18 pt is still has significant pain in his back although it is improving and better controled, no chest pain , no dyspnea , pt on antibiotic as per ID , pt may need picc/midline upon discharge for extending antibiotic therapy for 6 weeks as per ID team 12/12/18 pt is still improving slowly , oncology and orthopedic teams are following the case closely Objective - Vital Signs Vital signs: Vital Signs Temp 98.1 F 12/12/18 16:41 Pulse 76 12/12/18 16:55 Resp 16 12/12/18 16:41 BP 125/81 12/12/18 16:41 Pulse Ox 97 12/12/18 16:41 Intake & Output 12/11/18 12/12/18 12/12/18 18:59 06:59 18:59 Intake Total 118.196 1411 Output Total 450 1000 Balance -573.641 1950 -1000 Intake: Intake, IV Titration 815.774 3384 Amount 0.9% NaCl with KCl 40 Meq 1200 /l 1,000 ml @ 75 mls/hr IV .[id number] DIPESH Rx#: [id number] Cefepime 1 gm In Sodium 50 Chloride 0.9% 50 ml @ 100 mls/hr IVPB Q8HR DIPESH Rx# :[id number] Heparin Sod,Pork in 0.45% 250.000 NaCl 25,000 unit In 0.45 % NaCl 1 250ml.bag @ 18 UNITS/KG/HR 14.58 mls/hr IV .Q17H9M DIPESH Rx#: [id number] Oral 0 Output: Urine 450 1000 Other: Voiding Method Urinal Urinal Urinal # Voids 3 3 - Exam GENERAL: The patient is alert and oriented x3, not in any acute distress. Well developed, well nourished. HEENT: Pupils are round and equally reacting to light. EOMI. No scleral icterus. No conjunctival pallor. Normocephalic, atraumatic. No pharyngeal erythema. No thyromegaly. CARDIOVASCULAR: S1 and S2 present. No murmurs, rubs, or gallops. PULMONARY: Chest is clear to auscultation, no wheezing or crackles. ABDOMEN: Soft, nontender, nondistended, normoactive bowel sounds. No palpable organomegaly. -MUSCULOSKELETAL: No joint swelling or deformity. Back exam, patient refused because his painful : deferred to the orthopedic team EXTREMITIES: No cyanosis, clubbing, or pedal edema. NEUROLOGICAL: Gross neurological examination did not reveal any focal deficits. No weakness in the lower extremity SKIN: No rashes. - Labs CBC & Chem 7: 12/11/18 06:34 12/10/18 07:16 Assessment and Plan Assessment: acute back pain secondary to diskitis and epidural abscess. 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 ID team are following the pt and they are managing the antibiotic . orthopedic following up with pt as well Labs and medication were reviewed.. Continue same treatment. Continue with symptomatic treatment. Resume home medication. Monitor lytes and vitals. DVT and GI prophylaxis. Further recommendations of the clinical course of the patient DVT prophylaxis: heparin GI Prophylaxis: protonix PT/OT: Pending Prognosis is guarded
[2018-12-12] MEDS: SENNOSIDES-DOCUSATE SODIUM 1 EACH TAB PO SCH (22:20)
[2018-12-13] MEDS: MORPHINE SULFATE IR 15 MG TABLET PO PRN (01:15)
[2018-12-13] MEDS: LEVOTHYROXINE 100 MCG TAB PO SCH (06:33)
[2018-12-13] MEDS ORDERED: LIDOCAINE 1% INJ 10MG/ML (20 ML MDV) SQ ONE (08:48)
--- NOTE | 2018-12-13 09:12 | IR ---
PICC LINE PLACEMENT: HISTORY: Infection requiring long-term antibiotic therapy PROCEDURE: Ultrasound and fluoroscopic guidance of PICC line placement. COMPLICATIONS: None ANESTHESIA: 1. 1% Lidocaine locally. FINDINGS/TECHNIQUE: The procedure was explained to the patient. The risks, complications, benefits and alternatives were discussed and any questions were answered. Informed consent was obtained. The patient was placed supine on the fluoroscopic table and prepped and draped in the usual sterile fash ion. Utilizing a 21 gauge needle and sonographic and fluoroscopic guidance, access in the left basi lic vein was achieved and there is placement of a 0.018 guidewire. The vein is patent. A 4-F sheath was placed over the guidewire. The guidewire and dilator were removed and a 4-F. PICC line was plac ed through the sheath with the tip at the level of the SVC. The sheath was removed, the catheter was flushed and sutured into position. The patient was stable throughout the procedure and remained sta ble upon discharge from the Department of Radiology. The vein puncture was patent under ultrasound. A pate scale image was obtained to document patency of the vein punctured. All elements of the maximal barrier technique were utilized. FLUOROSCOPY TIME: 0.4 minute, one image submitted. IMPRESSION: Successful PICC line placement under ultrasound and fluoroscopic guidance.
[2018-12-13] MEDS: POLYETHYLENE GLYCOL 3350 17 GM POWD.PACK PO SCH (10:17)
[2018-12-13] MEDS: MORPHINE SULFATE ER 15 MG TABLET PO SCH ×2 (10:18→21:48)
[2018-12-13] MEDS: PANTOPRAZOLE 40 MG TABLET PO SCH (10:19)
[2018-12-13] MEDS: SENNOSIDES-DOCUSATE SODIUM 1 EACH TAB PO SCH ×2 (10:19→21:51)
[2018-12-13] MEDS: CYCLOBENZAPRINE 10 MG TAB PO SCH (10:19)
[2018-12-13] MEDS: ATENOLOL 25 MG TAB PO SCH (10:19)
[2018-12-13] MEDS: TAMSULOSIN 0.4 MG CAP.ER.24H PO SCH (10:20)
[2018-12-13] MEDS: CEFEPIME 1 GM in SODIUM CHLORIDE 0.9% 50 ML IVPB SCH ×2 (10:20→17:09)
--- NOTE | 2018-12-13 11:31 | P.PN ---
Subjective Progress Note Date: 12/13/18 Principal diagnosis: New Dual Primary Malignancies, Increased pain. Letitia appears to be better improved on long acting and breakthrough morphine Some confusion per , will lower flexeril 7.5 and changed breakthrough to q4 prn. Continue bowel protocol Objective - Vital Signs Vital signs: Vital Signs Temp 99.2 F 12/13/18 05:00 Pulse 108 H 12/13/18 05:00 Resp 16 12/13/18 05:00 BP 139/75 12/13/18 05:00 Pulse Ox 96 12/13/18 05:00 Intake & Output 12/12/18 12/13/18 12/13/18 18:59 06:59 18:59 Intake Total 830 Output Total 1000 700 Balance -1000 130 Intake: IV 240 ns@20 240 Oral 590 Output: Urine 1000 700 Other: Voiding Method Urinal Urinal Urinal - Exam Constitutional General appearance: no acute distress - EENT Eyes: EOMI, PERRLA ENT: hearing grossly normal, normal oropharynx - Neck Neck: no lymphadenopathy Thyroid: bilateral: normal size - Respiratory Respiratory: bilateral: CTA - Cardiovascular Rhythm: regular Heart sounds: normal: S1, S2 - Gastrointestinal General gastrointestinal: normal bowel sounds, soft - Integumentary Integumentary: normal - Musculoskeletal Musculoskeletal: generalized weakness, strength equal bilaterally - Psychiatric Psychiatric: A&O x's 3, appropriate affect - Labs CBC & Chem 7: 12/11/18 06:34 12/10/18 07:16 Assessment and Plan Plan: (1) Intractable low back pain Narrative/Plan: - The patient had similar symptoms that his initial presentation last month, his MRI at that time indicating no evidence of malignancy. - The symptoms were felt to be due to the moderate to severe disc disease noted at L5 L6. - Treatment as outpatient has been Narcotic and Steroid management, as well as , referral to PMR. They have not seen yet He is now presenting with progression in his symptoms. Repeat computed tomography scan at this time notes a possible paraspinal mass with destructive process, with differentials including malignancy as well as discitis with phlegmon. Based on the report, as well as personally reviewed the images, this actually appears to be a new finding or at least a major change from 6 weeks ago. - He is status post procedure with Orthopedic spine surgery - Dr. Acosta consulted regarding likely osteomyelitis/diskitis, plan for surgical intervention of spine abscess - Discussed results of PET and MRI in detail with radiology. 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 Was on xarelto as outpatient - Heparin Drip at this time, as long as no post op bleeding and ok with ortho will convert - Since no signs of bleeding and pathology has resulted as negative will stop heparin drip and start back on PO AC therapy. Current Visit: No Status: Acute Priority: High Code(s): I82.220 - ACUTE EMBOLISM AND THROMBOSIS OF INFERIOR VENA CAVA SNOMED Code(s): 496120747 (3) Hepatocellular carcinoma Narrative/Plan: - Appears to be localized likely candidate chemoembolization of liver, will need to address acute lumbarsacral infectious process prior to intervention for liver lesion. Current Visit: Yes Status: Acute Code(s): C22.0 - LIVER CELL CARCINOMA SNOMED Code(s): 649076802 (4) Prostate cancer Narrative/Plan: - As noted the patient had multiple prior prostate biopsies that were negative. The diagnosis was made via lymph node biopsy last month. PSA has been stable in the low 20 range. Current Visit: Yes Status: Acute Code(s): C61 - MALIGNANT NEOPLASM OF PROSTATE SNOMED Code(s): 164236813 (5) Osteomyelitis/Diskitis: status Post Surgery 12/05/18. He may resume anticoagulation with heparin drip first 24-48 post op to ensure no bleeding, then will convert back to PO / - Per Ortho ok to resume AC, resumed Heparin drip on 12/07/18 - Awaiting Cultures to fully result from wound and Pathology: - Gram Negative Bacilli in wound (6) Ecoli UTI - Recurrent: - Massive prostate and new diagnosis of prostate cancer Plan: - Continue with adjustments of pain medications to a PO regiment and continuing to Encourage to increase activity - Plan Picc line tomorrow in anticipation for discharge, likely to ECF to receive Rehabiliation unless candidate IPR. - No plans for chemotherapy or cancer treatment until complete resolution of infection and discharge from ECF or IPR. - Continu MS Contin ER 30mg po q12 hours, MS IR every 3 hours PRN. Senna S 2 tabs daily. DC Oxycodone - Increase Flexeril to 10mg - COntinue Xarelto daily (held for IR Picc), resume after
[2018-12-13] MEDS: 0.9% NACL WITH KCL 40 MEQ/L 1,000 ML IV SCH (17:07)
[2018-12-13] MEDS: RIVAROXABAN 20 MG TAB PO SCH (17:12)
[2018-12-13] MEDS: CYCLOBENZAPRINE 5 MG TAB PO SCH ×2 (17:13→21:51)
[2018-12-14] MEDS: CEFEPIME 1 GM in SODIUM CHLORIDE 0.9% 50 ML IVPB SCH ×3 (00:53→16:18)
[2018-12-14] MEDS: 0.9% NACL WITH KCL 40 MEQ/L 1,000 ML IV SCH ×2 (00:53→16:18)
[2018-12-14] MEDS: LEVOTHYROXINE 100 MCG TAB PO SCH (05:35)
--- NOTE | 2018-12-14 08:50 | P.PN ---
Subjective Progress Note Date: 12/14/18 Principal diagnosis: Principal diagnoses: Status post L4-5 laminectomy and decompression with bilateral partial medial facetectomy and foraminotomy with irrigation and excisional debridement of epidural abscess with partial corpectomy of L4 osteomyelitis and repair of 2 mm incidental durotomy L4-5 and L5-S1 bony destructive changes compatible with acute discitis/ osteomyelitis Lumbar epidural abscess L4-5 spinal canal stenosis and neural foraminal stenosis Intractable low back pain Right lower extremity radiculopathy Hepatocellular cancer Prostate cancer Inability to ambulate due to pain 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 He is status post L4-5 laminectomy and decompression with bilateral partial medial facetectomy and foraminotomy with irrigation and excisional debridement of epidural abscess with partial corpectomy of L4 osteomyelitis and repair of 2 mm incidental durotomy performed on 12/05/2018. Since being seen and examined Monday his symptoms have remained the same without significant change. He is currently sitting lying in bed and states he has less pain in his lumbar spine and right lower extremity. He is not experiencing any spinal headaches. He states he has been eating and voiding without difficulty does not have much of an appetite. He has no new complaints of the bedside. He continues to be seen by Dr. Singletary in oncology, by Dr. Acosta in infectious disease, and by medicine. He continues to receive antibiotic treatment with vancomycin and cefepime. Recent lymph node biopsy was positive for prostate cancer. Liver biopsy was positive for hepatocellular cancer. Patient's pain to be discharged to [facility] at the time of discharge. Patient continues to be on Xarelto. PICC line was placed yesterday. Patient is anticipated to be discharged to rehabilitation facility today. Patient history: He was previously seen and examined in the hospital in September 2018. Since that time he has had a significant exacerbation of back pain. He states his back pain is better controlled while lying flat in bed. Currently his pain is severe down the right lower extremity with increased ambulation and activities. He states following previous discharge from the hospital he felt he was doing fairly well until this past 12/01/2018. Prior to that time he was able to ambulate with the assistance of a walker. At his last visit imaging showed changes within the liver and he was waiting for liver biopsy after ultrasound results showed the liver was enlarged with 2 hypoechoic mass suspicious for metastatic disease. He was found to have hepatocellular carcinoma. Given his severe pain in his lumbar spine, a PET scan was performed on 12/01/2018. A CT of the lumbar spine has also been performed as well as an MRI of the lumbar spine. On imaging he was found to have bony destructive changes at L4-5 and L5-S1 with evidence of paraspinal mass consistent with acute discitis/osteomyelitis along with epidural abscess. These findings were not evident on previous imaging taken at his last admission in September 2018. Patient has continued to follow with Dr. Singletary in oncology. His symptoms have progressed as compared to his previous admittance to the hospital. Patient does have a history of prostate cancer. Objective - Vital Signs Vital signs: Vital Signs Temp 98.4 F 12/14/18 04:22 Pulse 82 12/14/18 04:22 Resp 17 12/14/18 04:22 BP 147/68 12/14/18 04:22 Pulse Ox 95 12/14/18 04:22 Intake & Output 12/13/18 12/14/18 12/14/18 18:59 06:59 18:59 Intake Total 210 560 Output Total 650 Balance 210 -90 Intake: IV 160 80 ns@20 160 80 Intake, IV Titration 50 Amount Cefepime 1 gm In Sodium 50 Chloride 0.9% 50 ml @ 100 mls/hr IVPB Q8HR [facility] Rx# :[id number] Oral 480 Output: Urine 650 Other: Voiding Method Urinal Urinal - Exam Physical exam: Patient is awake, alert, and oriented 3 Vital signs stable Good chest excursion with deep inspiration and expiration Abdomen is soft nontender Patient is currently lying in bed Nonstick Telfa and Tegaderm is clean, dry, intact with no active drainage No significant pain with palpation of the incision site Dorsiflexion, plantarflexion, and extensor hallucis longus positive sustained bilaterally Lower extremity strength 5/5 bilaterally Patient is able to lift legs independently in bed without but movements are somewhat slow No evidence of DVT; no pain with palpation of bilateral calves - Labs CBC & Chem 7: 12/11/18 06:34 12/10/18 07:16 Assessment and Plan Assessment: Assessment: L4-5 laminectomy and decompression with bilateral partial medial facetectomy and foraminotomy with irrigation and excisional debridement of epidural abscess with partial corpectomy of L4 osteomyelitis and repair of 2 mm incidental durotomy L4-5 and L5-S1 bony destructive changes compatible with acute discitis/ osteomyelitis Lumbar epidural abscess L4-5 spinal canal stenosis and neural foraminal stenosis Intractable low back pain Right lower extremity radiculopathy Positive urine culture for E. coli Positive wound culture for E. 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 (1) Discitis of lumbar region Current Visit: Yes Status: Acute Code(s): M46.46 - DISCITIS, UNSPECIFIED, LUMBAR REGION SNOMED Code(s): 933396571 (2) Lumbar stenosis Current Visit: Yes Status: Acute Code(s): M48.061 - SPINAL STENOSIS, LUMBAR REGION WITHOUT NEUROGENIC [place] SNOMED Code(s): 63649621 (3) Lumbar herniated disc Current Visit: Yes Status: Acute Code(s): M51.26 - OTHER INTERVERTEBRAL DISC DISPLACEMENT, LUMBAR REGION SNOMED Code(s): 521915867 (4) Epidural abscess Current Visit: Yes Status: Acute Code(s): G06.2 - EXTRADURAL AND SUBDURAL ABSCESS, UNSPECIFIED SNOMED Code(s): 83461891 (5) Hepatocellular carcinoma Current Visit: Yes Status: Acute Code(s): C22.0 - LIVER CELL CARCINOMA SNOMED Code(s): 769902433 (6) Intractable low back pain Current Visit: Yes Status: Acute Code(s): M54.5 - LOW BACK PAIN SNOMED Code(s): 15687558048400294 (7) Prostate cancer Current Visit: Yes Status: Acute Code(s): C61 - MALIGNANT NEOPLASM OF PROSTATE SNOMED Code(s): 374774302 (8) Inferior vena cava thromboembolism Current Visit: No Status: Acute Priority: High Code(s): I82.220 - ACUTE EMBOLISM AND THROMBOSIS OF INFERIOR VENA CAVA SNOMED Code(s): 137693615 Plan: Plan: 1. We will continue with the plan as previously set forth. Patient is status post L4-5 laminectomy and decompression with bilateral partial medial facetectomy and foraminotomy with irrigation and excisional debridement of epidural abscess with partial corpectomy of L4 osteomyelitis and repair of 2 mm incidental durotomy. Following the repair of his incidental durotomy, patient was able to sit upright on 12/07/2018 without any evidence of spinal headaches. Patient has been able to increase mobility and ambulation since being seen and examined yesterday. He is currently sitting in a bedside chair without any difficulty. He has not been experiencing any spinal headaches. We discussed he should continue with bracing while out of bed and doing increased activities and working with physical therapy. He should continue to work on increasing mobility and ambulation with the assistance of physical therapy. We are currently planning for any further surgical intervention at his lumbosacral spine. We'll plan to have other medical providers continue pain control with medications prescribed by them. From an orthopedic spine standpoint, patient will be clear for discharge once cleared by other medical providers. We will plan have him follow-up in the outpatient setting in approximately 1-2 weeks for further evaluation. 2. Drainage from a small opening in the superior portion of his incision has improved and he is not currently experiencing any active drainage at the incision site. At rehabilitation, they may continue with daily dressing changes with nonstick Telfa and Tegaderm as needed. Dressing over the incision site may be discontinued his incision continues to remain clean, dry, intact with no active drainage and no dehiscence. 3. Patient will continue be seen in exam by medicine, infectious disease, pain management and oncology for his significant medical diagnoses; heparin drip will be discontinued and patient has been started on Xarelto per oncology; patient's pain medication has been adjusted by oncology. Time with Patient: Less than 30
[2018-12-14] MEDS: TAMSULOSIN 0.4 MG CAP.ER.24H PO SCH (09:09)
[2018-12-14] MEDS: MORPHINE SULFATE ER 15 MG TABLET PO SCH ×2 (09:09→22:17)
[2018-12-14] MEDS: SENNOSIDES-DOCUSATE SODIUM 1 EACH TAB PO SCH ×2 (09:09→22:18)
[2018-12-14] MEDS: ATENOLOL 25 MG TAB PO SCH (09:09)
[2018-12-14] MEDS: PANTOPRAZOLE 40 MG TABLET PO SCH (09:09)
[2018-12-14] MEDS: CYCLOBENZAPRINE 5 MG TAB PO SCH ×3 (09:10→22:18)
--- NOTE | 2018-12-14 10:04 | P.PN ---
Subjective This is a pleasant 83 years old male with past medical history of liver cancer presents because of back pain. He is status post laminectomy and decompression of the spinal cord with debridement of epidural abscess at L4-L5, and partial corpectomy of L4 osteomyelitis. Orthopedic team and infectious team are following the patient. Patient is main complaint currently is his postop back pain, which is looks better controlled with Dilaudid and Lanse. His pain came down today from 7 down to 4/10. He is not much in distress. No chest pain or dyspnea. No nausea vomiting. He has constipation probably from his pain medication. Wound culture is growing E. coli. Patient currently on vancomycin and cefepime. He was on xarelto, which is switched to heparin drip and need to switched back to xarelto upon discharge. 12/11/18 pt is still has significant pain in his back although it is improving and better controled, no chest pain , no dyspnea , pt on antibiotic as per ID , pt may need picc/midline upon discharge for extending antibiotic therapy for 6 weeks as per ID team 12/12/18 pt is still improving slowly , oncology and orthopedic teams are following the case closely 12/13/2017 pt is more drowsy in the morning however when i saw him he was awake and alert , pt told me he still has significant pain . pt pain medication was increased which might be contributed to his temporary confusion , we will keep monitoring for now and adjusted medication later if confusion recurs, pt will need picc line for possible prolonged IV medication and for better iv access, plan for ECF rehab upon discharge Objective - Vital Signs Vital signs: Vital Signs Temp 98.4 F 12/14/18 04:22 Pulse 82 12/14/18 04:22 Resp 17 12/14/18 04:22 BP 147/68 12/14/18 04:22 Pulse Ox 95 12/14/18 04:22 Intake & Output 12/13/18 12/14/18 12/14/18 18:59 06:59 18:59 Intake Total 210 560 Output Total 650 Balance 210 -90 Intake: IV 160 80 ns@20 160 80 Intake, IV Titration 50 Amount Cefepime 1 gm In Sodium 50 Chloride 0.9% 50 ml @ 100 mls/hr IVPB Q8HR [facility] Rx# :[id number] Oral 480 Output: Urine 650 Other: Voiding Method Urinal Urinal - Exam GENERAL: The patient is alert and oriented x3, not in any acute distress. Well developed, well nourished. HEENT: Pupils are round and equally reacting to light. EOMI. No scleral icterus. No conjunctival pallor. Normocephalic, atraumatic. No pharyngeal erythema. No thyromegaly. CARDIOVASCULAR: S1 and S2 present. No murmurs, rubs, or gallops. PULMONARY: Chest is clear to auscultation, no wheezing or crackles. ABDOMEN: Soft, nontender, nondistended, normoactive bowel sounds. No palpable organomegaly. -MUSCULOSKELETAL: No joint swelling or deformity. Back exam, patient refused because his painful : deferred to the orthopedic team EXTREMITIES: No cyanosis, clubbing, or pedal edema. NEUROLOGICAL: Gross neurological examination did not reveal any focal deficits. No weakness in the lower extremity SKIN: No rashes. - Labs CBC & Chem 7: 12/11/18 06:34 12/10/18 07:16 Assessment and Plan Assessment: acute back pain secondary to diskitis and epidural abscess. 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 ID team are following the pt and they are managing the antibiotic . orthopedic following up with pt as well Labs and medication were reviewed.. Continue same treatment. Continue with symptomatic treatment. Resume home medication. Monitor lytes and vitals. DVT and GI prophylaxis. Further recommendations of the clinical course of the patient DVT prophylaxis: heparin GI Prophylaxis: protonix PT/OT: Pending Prognosis is guarded
[2018-12-14] MEDS: MORPHINE SULFATE IR 15 MG TABLET PO PRN ×2 (10:52→16:25)
[2018-12-14] MEDS: POLYETHYLENE GLYCOL 3350 17 GM POWD.PACK PO SCH ×2 (13:05→22:17)
--- NOTE | 2018-12-14 13:06 | P.PN ---
Subjective Progress Note Date: 12/14/18 Principal diagnosis: New Dual Primary Malignancies, Increased pain. Still complains of the spasmotic discomfort, although with higher level flexeril he was having mental status changes, therefore decreased. His pain seems ok when not spasms. Objective - Vital Signs Vital signs: Vital Signs Temp 98.1 F 12/14/18 12:47 Pulse 73 12/14/18 12:47 Resp 17 12/14/18 12:47 BP 128/77 12/14/18 12:47 Pulse Ox 95 12/14/18 12:47 Intake & Output 12/13/18 12/14/18 12/14/18 18:59 06:59 18:59 Intake Total 210 560 Output Total 650 Balance 210 -90 Intake: IV 160 80 ns@20 160 80 Intake, IV Titration 50 Amount Cefepime 1 gm In Sodium 50 Chloride 0.9% 50 ml @ 100 mls/hr IVPB Q8HR [facility] Rx# :[id number] Oral 480 Output: Urine 650 Other: Voiding Method Urinal Urinal Urinal - Exam Constitutional General appearance: no acute distress - EENT Eyes: EOMI, PERRLA ENT: hearing grossly normal, normal oropharynx - Neck Neck: no lymphadenopathy Thyroid: bilateral: normal size - Respiratory Respiratory: bilateral: CTA - Cardiovascular Rhythm: regular Heart sounds: normal: S1, S2 - Gastrointestinal General gastrointestinal: normal bowel sounds, soft - Integumentary Integumentary: normal - Musculoskeletal Musculoskeletal: generalized weakness, strength equal bilaterally - Psychiatric Psychiatric: A&O x's 3, appropriate affect - Labs CBC & Chem 7: 12/11/18 06:34 12/10/18 07:16 Assessment and Plan Plan: (1) Intractable low back pain Narrative/Plan: - The patient had similar symptoms that his initial presentation last month, his MRI at that time indicating no evidence of malignancy. - The symptoms were felt to be due to the moderate to severe disc disease noted at L5 L6. - Treatment as outpatient has been Narcotic and Steroid management, as well as , referral to PMR. They have not seen yet He is now presenting with progression in his symptoms. Repeat computed tomography scan at this time notes a possible paraspinal mass with destructive process, with differentials including malignancy as well as discitis with phlegmon. Based on the report, as well as personally reviewed the images, this actually appears to be a new finding or at least a major change from 6 weeks ago. - He is status post procedure with Orthopedic spine surgery - Dr. Acosta consulted regarding likely osteomyelitis/diskitis, plan for surgical intervention of spine abscess - Discussed results of PET and MRI in detail with radiology. I have reviewed with patient and family and plan will be to begin Hormonal therapy and plan for chemoembolization of local hepatocellular cancer with q3 month Lupron after acute infectious process is resolved Current Visit: Yes Status: Acute Code(s): M54.5 - LOW BACK PAIN SNOMED Code(s): 36837845257729429 (2) Inferior vena cava thromboembolism Narrative/Plan: - Likely secondary to malignancy/cies. Was on xarelto as outpatient - Heparin Drip at this time, as long as no post op bleeding and ok with ortho will convert - Since no signs of bleeding and pathology has resulted as negative will stop heparin drip and start back on PO AC therapy. Current Visit: No Status: Acute Priority: High Code(s): I82.220 - ACUTE EMBOLISM AND THROMBOSIS OF INFERIOR VENA CAVA SNOMED Code(s): 525970861 (3) Hepatocellular carcinoma Narrative/Plan: - Appears to be localized likely candidate chemoembolization of liver, will need to address acute lumbarsacral infectious process prior to intervention for liver lesion. Current Visit: Yes Status: Acute Code(s): C22.0 - LIVER CELL CARCINOMA SNOMED Code(s): 486857022 (4) Prostate cancer Narrative/Plan: - As noted the patient had multiple prior prostate biopsies that were negative. The diagnosis was made via lymph node biopsy last month. PSA has been stable in the low 20 range. Current Visit: Yes Status: Acute Code(s): C61 - MALIGNANT NEOPLASM OF PROSTATE SNOMED Code(s): 698569573 (5) Osteomyelitis/Diskitis: status Post Surgery 12/05/18. He may resume anticoagulation with heparin drip first 24-48 post op to ensure no bleeding, then will convert back to PO / - Per Ortho ok to resume AC, resumed Heparin drip on 12/07/18 - Awaiting Cultures to fully result from wound and Pathology: - Gram Negative Bacilli in wound (6) Ecoli UTI - Recurrent: - Massive prostate and new diagnosis of prostate cancer Plan: - Continue with adjustments of pain medications to a PO regiment and continuing to Encourage to increase activit - No plans for chemotherapy or cancer treatment until complete resolution of infection and discharge from ECF or IPR. - Continu MS Contin ER 30mg po q12 hours, MS IR every 4 hours PRN. Senna S 2 tabs daily. add miralax - Cntinue on decreased flexeril 7.5 - COntinue Xarelto daily (held for IR Picc), resume after - dw primary team
--- NOTE | 2018-12-14 13:44 | P.PN ---
Subjective Progress Note Date: 12/13/18 Very pleasant 83-year-old male is known to the infectious disease service because of his many bouts of very tract infection. The patient has a long-standing history of a very large prostate with difficulties with some urinary retention resulting urinary tract infection. Recent infection has been with E. coli with no oral options and is receiving a couple of courses of outpatient intravenous antibiotic therapy and has done well. In September he was hospitalized with some back pain evaluations were performed showing evidence of degenerative disease and with local care and treatment of urinary infection he improved. 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 Percutaneous biopsy at this facility was performed and was nondiagnostic. He was seen at [facility] also with nondiagnostic testing. He eventually was seen at [facility] where biopsy was successful of the liver which reveal evidence of adenocarcinoma , and there is also evidence of enlarged lymph nodes in the pelvis which were diagnostic of prostate carcinoma. The patient was receiving anticoagulation therapy and was in the midst of workup for his underlying cancers, outpatient PET scan had just been performed. If this workup was occurring the patient was having increasing amounts of back pain on the day of admission was no longer able to ambulate because his pain was so severe. This lady was brought into the hospital and workup has been initiated and he has now been seen by orthopedic spine in the infectious diseases consultation was initiated. The patient is now had the follow-up MRI reveals evidence of the destruction of L4-L5 which is new compared to the September 2018 MRI. With concerns to discitis and epidural abscess the consult was requested. 12/07/2018 patient has significant pain of the LS-spine from the recent surgery. He however is not having fevers or chills. Nursing relates he ate his lunch. But is having some confusion. 12/10/2018 patient is now awake alert oriented to person place and time aware of his very vivid hallucinations. Pain control good control at this time. He has been getting up with physical therapy. the pathology is reviewed with the family no evidence of malignancy, only infection including osteomyelitis. 12/11/2018 patient is feeling somewhat better today. Pain is better controlled at times. Working toward his transfer to the extended care facility to complete his course of intravenous antibiotic therapy. Have discussed the therapy with the liaison and fortunately Maxipime is an option for treatment for his somewhat resistant Escherichia coli. 12/13/2018 patient has had some difficulty with severe pain after some sitting up activities. He received a large amount of narcotics and is somewhat sedated relates being awoken that his pain is better controlled this evening. No other new complaints are related Objective - Vital Signs Vital signs: Vital Signs Temp 98.1 F 12/14/18 12:47 Pulse 73 12/14/18 12:47 Resp 17 12/14/18 12:47 BP 128/77 12/14/18 12:47 Pulse Ox 95 12/14/18 12:47 Intake & Output 12/13/18 12/14/18 12/14/18 18:59 06:59 18:59 Intake Total 210 560 Output Total 650 Balance 210 -90 Intake: IV 160 80 ns@20 160 80 Intake, IV Titration 50 Amount Cefepime 1 gm In Sodium 50 Chloride 0.9% 50 ml @ 100 mls/hr IVPB Q8HR REPLACED BY [facility] Rx# :[id number] Oral 480 Output: Urine 650 Other: Voiding Method Urinal Urinal Urinal - Exam Pleasant 83-year-old male with pain medications is able to speak but is having severe pain postoperative HEENT: Anicteric conjunctiva are pink and moist nasal mucosa grossly intact without significant lesions, there is no thrush. Neck: The neck is supple without significant lymphadenopathy or thyromegaly. Lungs: Good bilateral air entry without significant crackles or wheezing. There is no significant bronchial sounds. There is no egophony or dullness. Heart: Regular rate and rhythm with an audible S1-S2, no S3 no S4. There is no significant murmur click or rub, PMI was nondisplaced. Abdomen: Minimally obese Positive bowel sounds soft and nontender without palpable masses or organomegaly. There was no guarding or rebound. Extremities: The upper extremities have excellent pulses they are symmetric, no significant petechiae or telangiectasia. No splinter hemorrhages were noted. Lower extremities without edema. Any attempt for manipulation of the lower extremities and back results in severe pain Neuro: Awake alert oriented to person place and time. There are no acute new gross focal sensory motor deficits. The patient has equal strength 5+ the bilateral lower extremities at the knee distally, attempts to evaluate strength into the hips and thighs is with severe pain. Upper extremity is 5+ and symmetric - Labs CBC & Chem 7: 12/11/18 06:34 12/10/18 07:16 Labs: Laboratory Results WBC 8.3 k/uL (3.8-10.6) 12/11/18 06:34 RBC 4.03 m/uL (4.30-5.90) L 12/11/18 06:34 Hgb 11.5 gm/dL (13.0-17.5) L 12/11/18 06:34 Hct 34.7 % (39.0-53.0) L 12/11/18 06:34 MCV 86.1 fL (80.0-100.0) 12/11/18 06:34 MCH 28.5 pg (25.0-35.0) 12/11/18 06:34 MCHC 33.1 g/dL (31.0-37.0) 12/11/18 06:34 RDW 16.1 % (11.5-15.5) H 12/11/18 06:34 Plt Count 285 k/uL (150-450) 12/11/18 06:34 Neutrophils % 70 % 12/11/18 06:34 Lymphocytes % 17 % 12/11/18 06:34 Monocytes % 5 % 12/11/18 06:34 Eosinophils % 5 % 12/11/18 06:34 Basophils % 1 % 12/11/18 06:34 Neutrophils # 5.9 k/uL (1.3-7.7) 12/11/18 06:34 Lymphocytes # 1.4 k/uL (1.0-4.8) 12/11/18 06:34 Monocytes # 0.4 k/uL (0-1.0) 12/11/18 06:34 Eosinophils # 0.4 k/uL (0-0.7) 12/11/18 06:34 Basophils # 0.1 k/uL (0-0.2) 12/11/18 06:34 Hypochromasia Slight 12/07/18 07:57 Anisocytosis Slight 12/11/18 06:34 PT 11.3 sec (9.0-12.0) 12/06/18 15:25 INR 1.1 (<1.2) 12/06/18 15:25 APTT 51.3 sec (22.0-30.0) H 12/11/18 08:43 Sodium 142 mmol/L (137-145) 12/10/18 07:16 Potassium 3.7 mmol/L (3.5-5.1) 12/10/18 07:16 Chloride 110 mmol/L (98-107) H 12/10/18 07:16 Carbon Dioxide 27 mmol/L (22-30) 12/10/18 07:16 Anion Gap 5 mmol/L 12/10/18 07:16 BUN 9 mg/dL (9-20) 12/10/18 07:16 Creatinine 0.64 mg/dL (0.66-1.25) L 12/10/18 07:16 Est GFR (CKD-EPI)AfAm >90 (>60 ml/min/1.73 sqM) 12/10/18 07:16 Est GFR (CKD-EPI)NonAf >90 (>60 ml/min/1.73 sqM) 12/10/18 07:16 Glucose 100 mg/dL (74-99) H 12/10/18 07:16 POC Glucose (mg/dL) 128 mg/dL (75-99) H 12/07/18 17:14 POC Glu [employer] ID Loreta Metz 12/07/18 17:[address] Glu mg/dL 131 12/02/18 12:44 Hemoglobin A1c 6.2 % (4.0-6.0) H 12/02/18 12:44 Calcium 9.4 mg/dL (8.4-10.2) 12/10/18 07:16 Magnesium 1.9 mg/dL (1.6-2.3) 12/09/18 07:23 Total Bilirubin 0.5 mg/dL (0.2-1.3) 12/04/18 03:05 Conjugated Bilirubin 0.0 mg/dL (0.0-0.3) 12/03/18 09:00 Unconjugated Bilirubin 0.5 mg/dL (0.0-1.1) 12/03/18 09:00 Delta Bilirubin 0.2 mg/dL (0.0-0.2) 12/03/18 09:00 AST 17 U/L (17-59) 12/04/18 03:05 ALT 25 U/L (21-72) 12/04/18 03:05 Alkaline Phosphatase 81 U/L (38-126) 12/04/18 03:05 Total Protein 6.1 g/dL (6.3-8.2) L 12/04/18 03:05 Albumin 2.9 g/dL (3.5-5.0) L 12/04/18 03:05 Tumor Marker AFP <2.5 ng/mL (0.0-7.9) 12/03/18 09:00 Free PSA TNP 12/03/18 09:00 % Free PSA TNP 12/03/18 09:00 Total PSA 20.6 ng/mL (<=4.0) H 12/03/18 09:00 Urine Color Yellow 12/02/18 16:00 Urine Appearance Cloudy (Clear) 12/02/18 16:00 Urine pH 6.0 (5.0-8.0) 12/02/18 16:00 Ur Specific Pfeifer 1.015 (1.001-1.035) 12/02/18 16:00 Urine Protein 1+ (Negative) H 12/02/18 16:00 Urine Glucose (UA) Negative (Negative) 12/02/18 16:00 Urine Ketones Negative (Negative) 12/02/18 16:00 Urine Blood Moderate (Negative) H 12/02/18 16:00 Urine Nitrite Positive (Negative) 12/02/18 16:00 Urine Bilirubin Negative (Negative) 12/02/18 16:00 Urine Urobilinogen <2.0 mg/dL (<2.0) 12/02/18 16:00 Ur Leukocyte Esterase Large (Negative) H 12/02/18 16:00 Urine RBC 28 /hpf (0-5) H 12/02/18 16:00 Urine WBC 155 /hpf (0-5) H 12/02/18 16:00 Urine WBC Clumps Few /hpf (None) H 12/02/18 16:00 Urine Bacteria Moderate /hpf (None) H 12/02/18 16:00 Urine Mucus Few /hpf (None) H 12/02/18 16:00 Vancomycin Trough 14.2 ug/mL 12/08/18 05:26 Blood Type O Positive 12/05/18 09:20 Blood Type Confirm O Positive 12/05/18 05:44 Blood Type Recheck CABO Indicated 12/05/18 09:20 Antibody Screen NEGATIVE 12/05/18 09:20 Spec Expiration Date 12/08/2018 - 2320 12/05/18 09:20 Microbiology 12/05/18 14:16 Other - Other Anaerobic Culture - Final 12/05/18 14:16 Other - Other Gram Stain - Final 12/05/18 14:16 Other - Other Wound Culture - Final Escherichia coli 12/02/18 16:00 Urine,Voided Urine Culture - Final Escherichia coli Assessment and Plan (1) Chronic back pain Current Visit: Yes Status: Acute Code(s): M54.9 - DORSALGIA, UNSPECIFIED; G89.29 - OTHER CHRONIC PAIN SNOMED Code(s): 450057741 (2) Discitis of lumbar region Current Visit: Yes Status: Acute Code(s): M46.46 - DISCITIS, UNSPECIFIED, LUMBAR REGION SNOMED Code(s): 500532010 (3) E. coli urinary tract infection Narrative/Plan: 83-year-old male known to the infectious disease service for his audible bouts of urinary tract infections with multidrug resistant Escherichia coli who now presents to hospital with irretractable back pain. He hashad troubles with back pain in the past and has had workup performed. With the inferior vena cava clot workup then was performed for an underlying malignancy and it does appear that there is evidence of the hepatocellular carcinoma the liver as well as of the prostate carcinoma as noted by the lymph nodes in the pelvis. 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 Patient however now is developed the progressive and severe back pain to the point in time where he is no longer able to ambulate. The MRI reveals evidence of the extensive destruction to L4-L5 with the evidence of fluid in the intervertebral space consistent with infection as well as a small epidural abscess. The patient has been seen by orthopedic spine. The patient has significant physical symptoms and significant other pathology. I agree at this point in time that a surgical intervention would be of great utility in that it would give likely relief of pain by stabilization of the spine. It also give deep tissue cultures and pathology to further evaluate this lesion. With his multiple urinary tract infections it is possible that this could even be an E. coli infection within the space. The possibility of malignancy in this area is not completely excluded the possibility of malignancy and secondary infection is also of concern. Then vancomycin also added at this time pending further information given the evidence of the epidural abscess.Await further culture results and surgical data to further define the overall course of therapy. 12/07/2018 patient's postoperative other than postoperative pain seems to be relatively well. Currently receiving Maxipime and vancomycin. When the culture from the surgical site has come back as complete if no gram-positive organs or from the vancomycin may be discontinued. He will plan on leaving the hospital on intravenous antibiotic therapy likely Merrem is likely more cost effective and Maxipime 12/10/2018 patient is now awake alert oriented to person place and time. Other than pain at the sit e of the L4-L5 infection he is doing well. Confusion is resolved and he is back down to nearly his baseline mental status. A 6 weeks course of antibiotic therapy has discussed with the patient and family and likely would've [place] to receive his therapy both physical and antibiotics. We'll continue liaison to ensure cost-effective choice. 12/11/2018 patient is showing some improvement but still has severe pain when he is moving from place to place. He however relates that today he had up to the chair in the first bit of time up in the chair was miserable that he was able to fall asleep and his pain has been somewhat improved ever since. 6 weeks of antibiotic therapy to extended care facility is being arranged cefepime appears to be a covered benefit. December 13 2018 patient was having some improvement and had some increased movement which is resulted in some severe pain and spasm to his lower back. With current pain medication acephaly more comfortable. Denies other new acute difficulties. The plan will be to utilize the Maxipime at the extended care facility for the at least 6 week period of time for treatment of the osteomyelitis of the spine and discitis and epidural abscess that have been surgically drained. IV access with PICC line has been placed. Current Visit: Yes Status: Acute Code(s): N39.0 - URINARY TRACT INFECTION, SITE NOT SPECIFIED; B96.20 - UNSP ESCHERICHIA COLI THE CAUSE OF DISEASES [facility] SNOMED Code(s): 543802299 (4) Prostate cancer Current Visit: Yes Status: Acute Code(s): C61 - MALIGNANT NEOPLASM OF PROSTATE SNOMED Code(s): 373540510 (5) Hepatocellular carcinoma Current Visit: Yes Status: Acute Code(s): C22.0 - LIVER CELL CARCINOMA SNOMED Code(s): 040178104
[2018-12-14] MEDS: RIVAROXABAN 20 MG TAB PO SCH (16:19)
[2018-12-15] MEDS: CEFEPIME 1 GM in SODIUM CHLORIDE 0.9% 50 ML IVPB SCH ×4 (00:32→23:14)
[2018-12-15] MEDS: MORPHINE SULFATE IR 15 MG TABLET PO PRN ×2 (00:37→11:06)
[2018-12-15] MEDS: LEVOTHYROXINE 100 MCG TAB PO SCH (05:15)
[2018-12-15] MEDS: 0.9% NACL WITH KCL 40 MEQ/L 1,000 ML IV SCH ×2 (05:15→21:14)
[2018-12-15] MEDS: CYCLOBENZAPRINE 5 MG TAB PO SCH ×2 (08:05→21:11)
[2018-12-15] MEDS: MORPHINE SULFATE ER 15 MG TABLET PO SCH ×2 (08:05→21:11)
[2018-12-15] MEDS: PANTOPRAZOLE 40 MG TABLET PO SCH (08:05)
[2018-12-15] MEDS: TAMSULOSIN 0.4 MG CAP.ER.24H PO SCH (08:05)
[2018-12-15] MEDS: POLYETHYLENE GLYCOL 3350 17 GM POWD.PACK PO SCH ×2 (08:06→21:13)
[2018-12-15] MEDS: SENNOSIDES-DOCUSATE SODIUM 1 EACH TAB PO SCH ×2 (08:06→21:11)
[2018-12-15] MEDS: ATENOLOL 25 MG TAB PO SCH (08:06)
[2018-12-15] MEDS ORDERED: METHOCARBAMOL 500 MG TAB ONE (17:30)
[2018-12-15] MEDS ORDERED: RIVAROXABAN 20 MG TAB PO ONE (17:30)
[2018-12-15] MEDS: RIVAROXABAN 20 MG TAB PO SCH (21:52)
[2018-12-15] MEDS: METHOCARBAMOL 500 MG TAB PO SCH (23:13)
--- NOTE | 2018-12-15 23:52 | P.PN ---
Subjective Progress Note Date: 12/15/18 Principal diagnosis: New Dual Primary Malignancies, Increased pain. His pain appears to be mainly from fear of the spasms, on follow-up today he is tightly holding onto side of bed half on side, stomach for fear if he moves he will have spasm. When the flexeril was increased 10mg TID he reacted with confusion, lowered to 7.5 TID and appears to not affect mental status although his comfort level does not seem to be improving. He did move bowels today. I will discuss with Ortho as family is very concerned and would like to understand a better expectation of improvement in his comfort level after procedure. Objective - Vital Signs Vital signs: Vital Signs Temp 98.6 F 12/15/18 21:00 Pulse 86 12/15/18 21:00 Resp 18 12/15/18 21:00 BP 113/65 12/15/18 21:00 Pulse Ox 93 L 12/15/18 21:00 Intake & Output 12/15/18 12/15/18 12/16/18 06:59 18:59 06:59 Intake Total 900 750 Output Total 450 250 Balance 450 500 Intake: Intake, IV Titration 700 300 Amount 0.9% NaCl with KCl 40 Meq 600 300 /l 1,000 ml @ 75 mls/hr IV .[id number] [facility] Rx#: [id number] Cefepime 1 gm In Sodium 100 Chloride 0.9% 50 ml @ 100 mls/hr IVPB Q8HR [facility] Rx# :[id number] Oral 200 450 Output: Urine 450 250 Other: Voiding Method Urinal Urinal # Voids 1 - Exam Constitutional General appearance: mild acute distress from pain and fear of pain with movement - EENT Eyes: EOMI, PERRLA ENT: hearing grossly normal, normal oropharynx - Neck Neck: no lymphadenopathy Thyroid: bilateral: normal size - Respiratory Respiratory: bilateral: CTA - Cardiovascular Rhythm: regular Heart sounds: normal: S1, S2 - Gastrointestinal General gastrointestinal: normal bowel sounds, soft - Integumentary Integumentary: normal - Musculoskeletal Musculoskeletal: generalized weakness, strength equal bilaterally - Psychiatric Psychiatric: A&O x's 3, appropriate affect - Labs CBC & Chem 7: 12/16/18 09:31 12/16/18 09:31 Assessment and Plan Plan: (1) Intractable low back pain Narrative/Plan: - The patient had similar symptoms that his initial presentation last month, his MRI at that time indicating no evidence of malignancy. - The symptoms were felt to be due to the moderate to severe disc disease noted at L5 L6. - Treatment as outpatient has been Narcotic and Steroid management, as well as , referral to PMR. They have not seen yet He is now presenting with progression in his symptoms. Repeat computed tomography scan at this time notes a possible paraspinal mass with destructive process, with differentials including malignancy as well as discitis with phlegmon. Based on the report, as well as personally reviewed the images, this actually appears to be a new finding or at least a major change from 6 weeks ago. - He is status post procedure with Orthopedic spine surgery - Dr. Acosta consulted regarding likely osteomyelitis/diskitis, plan for surgical intervention of spine abscess - Discussed results of PET and MRI in detail with radiology. I have reviewed with patient and family and plan will be to begin Hormonal therapy and plan for chemoembolization of local hepatocellular cancer with q3 month Lupron after acute infectious process is resolved Current Visit: Yes Status: Acute Code(s): M54.5 - LOW BACK PAIN SNOMED Code(s): 30511542938352738 (2) Inferior vena cava thromboembolism Narrative/Plan: - Likely secondary to malignancy/cies. Was on xarelto as outpatient - Heparin Drip at this time, as long as no post op bleeding and ok with ortho will convert - Since no signs of bleeding and pathology has resulted as negative will stop heparin drip and start back on PO AC therapy. Current Visit: No Status: Acute Priority: High Code(s): I82.220 - ACUTE EMBOLISM AND THROMBOSIS OF INFERIOR VENA CAVA SNOMED Code(s): 583048977 (3) Hepatocellular carcinoma Narrative/Plan: - Appears to be localized likely candidate chemoembolization of liver, will need to address acute lumbarsacral infectious process prior to intervention for liver lesion. Current Visit: Yes Status: Acute Code(s): C22.0 - LIVER CELL CARCINOMA SNOMED Code(s): 082278403 (4) Prostate cancer Narrative/Plan: - As noted the patient had multiple prior prostate biopsies that were negative. The diagnosis was made via lymph node biopsy last month. PSA has been stable in the low 20 range. Current Visit: Yes Status: Acute Code(s): C61 - MALIGNANT NEOPLASM OF PROSTATE SNOMED Code(s): 355177839 (5) Osteomyelitis/Diskitis: status Post Surgery 12/05/18. He may resume anticoagulation with heparin drip first 24-48 post op to ensure no bleeding, then will convert back to PO - ID is following and ANtibiotics at discharge per Dr. Acosta (6) Ecoli UTI - Recurrent: - Massive prostate and new diagnosis of prostate cancer Plan: - Continue with adjustments of pain medications to a PO regiment and continuing to Encourage to increase activit - No plans for chemotherapy or cancer treatment until complete resolution of infection and discharge from ECF or IPR. - Continu MS Contin ER 30mg po q12 hours, MS IR every 4 hours PRN. Senna S 2 tabs daily. add miralax - Cntinue on decreased flexeril 7.5 - COntinue Xarelto daily (held for IR Picc), resume after - dw primary team Concern is the balance between his antispasmotics and pain control at a dosage or type that will not affect mental status although control his pain. Family is concerned as they feel his overall comfort level has worsened the past day, they are inquiring of realistic expectations for comfort post procedure. I will defer to Ortho spine. I will discuss with them tomorrow to assist in communication with family. - Discontinued FLexeril and started Robaxin 500mg po TID, can titrate up to improve comfort levels. Monitor mental status closely, discussed with Nursing. - He did have BM today. Physician Attestation: I have completed the full history and physical of this patient and agree with above dictation by Cat Whiting NP dictated as a scribe.
[2018-12-16] MEDS: LEVOTHYROXINE 100 MCG TAB PO SCH (06:04)
[2018-12-16] MEDS: CEFEPIME 1 GM in SODIUM CHLORIDE 0.9% 50 ML IVPB SCH ×2 (07:53→16:27)
[2018-12-16] MEDS: 0.9% NACL WITH KCL 40 MEQ/L 1,000 ML IV SCH ×2 (07:53→20:24)
[2018-12-16] MEDS: MORPHINE SULFATE ER 15 MG TABLET PO SCH ×2 (07:54→20:24)
[2018-12-16] MEDS: PANTOPRAZOLE 40 MG TABLET PO SCH (07:55)
[2018-12-16] MEDS: ATENOLOL 25 MG TAB PO SCH (07:55)
[2018-12-16] MEDS: POLYETHYLENE GLYCOL 3350 17 GM POWD.PACK PO SCH ×2 (07:55→20:23)
[2018-12-16] MEDS: SENNOSIDES-DOCUSATE SODIUM 1 EACH TAB PO SCH ×2 (07:55→20:23)
[2018-12-16] MEDS: TAMSULOSIN 0.4 MG CAP.ER.24H PO SCH (07:55)
[2018-12-16] MEDS: METHOCARBAMOL 500 MG TAB PO SCH ×3 (07:56→21:52)
[2018-12-16 10:31] LABS: Anisocytosis Slight; Basophils # (A) 0.1 k/uL (0-0.2); Basophils % (A) 0 %; Eosinophils # (A) 0.3 k/uL (0-0.7); Eosinophils % (A) 2 %; HCT 35.1 % (39.0-53.0); HGB 10.9 gm/dL (13.0-17.5); Hypochromasia Slight; Lymphocytes # (A) 1.6 k/uL (1.0-4.8); Lymphocytes % (A) 11 %; MCH 27.4 pg (25.0-35.0); MCV 88.5 fL (80.0-100.0); Mean Platelet Volume 6.3; Monocytes # (A) 0.7 k/uL (0-1.0); Monocytes % (A) 5 %; Neutrophils # (A) 10.9 k/uL (1.3-7.7); Neutrophils % (A) 80 %; Platelet Count 435 k/uL (150-450); RBC 3.97 m/uL (4.30-5.90); RDW 16.1 % (11.5-15.5); WBC 13.7 k/uL (3.8-10.6)
[2018-12-16 10:37] LABS: ALT 38 U/L (21-72); AST 31 U/L (17-59); Albumin 3.1 g/dL (3.5-5.0); Alkaline Phosphatase 150 U/L (38-126); Anion Gap 9 mmol/L; Blood Urea Nitrogen 17 mg/dL (9-20); Calcium 10.3 mg/dL (8.4-10.2); Carbon Dioxide 25 mmol/L (22-30); Chloride 103 mmol/L (98-107); Glucose 131 mg/dL (74-99); Potassium 4.5 mmol/L (3.5-5.1); Sodium 137 mmol/L (137-145); Total Bilirubin 1.3 mg/dL (0.2-1.3); Total Protein 6.7 g/dL (6.3-8.2)
--- NOTE | 2018-12-16 17:00 | P.PN ---
Subjective Progress Note Date: 12/16/18 Principal diagnosis: New Dual Primary Malignancies, Increased pain. His spasms and pain are still there but seems much better today, laying on back and no complaints. Objective - Vital Signs Vital signs: Vital Signs Temp 98.1 F 12/16/18 05:00 Pulse 87 12/16/18 05:00 Resp 18 12/16/18 05:00 BP 134/85 12/16/18 05:00 Pulse Ox 94 L 12/16/18 05:00 Intake & Output 12/15/18 12/16/18 12/16/18 18:59 06:59 18:59 Intake Total 1690 Output Total 350 Balance 1340 Intake: Intake, IV Titration 1000 Amount 0.9% NaCl with KCl 40 Meq 900 /l 1,000 ml @ 75 mls/hr IV .[id number] [facility] Rx#: [id number] Cefepime 1 gm In Sodium 100 Chloride 0.9% 50 ml @ 100 mls/hr IVPB Q8HR [facility] Rx# :[id number] Oral 690 Output: Urine 350 Other: Voiding Method Urinal Urinal # Bowel Movements 1 - Exam Constitutional General appearance: No distress, laying on back and tolerating spasms - EENT Eyes: EOMI, PERRLA ENT: hearing grossly normal, normal oropharynx - Neck Neck: no lymphadenopathy Thyroid: bilateral: normal size - Respiratory Respiratory: bilateral: CTA - Cardiovascular Rhythm: regular Heart sounds: normal: S1, S2 - Gastrointestinal General gastrointestinal: normal bowel sounds, soft - Integumentary Integumentary: normal - Musculoskeletal Musculoskeletal: generalized weakness, strength equal bilaterally - Psychiatric Psychiatric: A&O x's 3, appropriate affect, a little confused, although recognizing it - Labs CBC & Chem 7: 12/16/18 09:31 12/16/18 09:31 Labs: Abnormal Lab Results - Last 24 Hours (Table) 12/16/18 12/16/18 Range/Units 09:31 09:31 WBC 13.7 H (3.8-10.6) k/uL RBC 3.97 L (4.30-5.90) m/uL Hgb 10.9 L (13.0-17.5) gm/dL Hct 35.1 L (39.0-53.0) % RDW 16.1 H (11.5-15.5) % Neutrophils # 10.9 H (1.3-7.7) k/uL Glucose 131 H (74-99) mg/dL Calcium 10.3 H (8.4-10.2) mg/dL Alkaline Phosphatase 150 H (38-126) U/L Albumin 3.1 L (3.5-5.0) g/dL Assessment and Plan Plan: (1) Intractable low back pain Narrative/Plan: - The patient had similar symptoms that his initial presentation last month, his MRI at that time indicating no evidence of malignancy. - The symptoms were felt to be due to the moderate to severe disc disease noted at L5 L6. - Treatment as outpatient has been Narcotic and Steroid management, as well as , referral to PMR. They have not seen yet He is now presenting with progression in his symptoms. Repeat computed tomography scan at this time notes a possible paraspinal mass with destructive process, with differentials including malignancy as well as discitis with phlegmon. Based on the report, as well as personally reviewed the images, this actually appears to be a new finding or at least a major change from 6 weeks ago. - He is status post procedure with Orthopedic spine surgery - Dr. Acosta consulted regarding likely osteomyelitis/diskitis, plan for surgical intervention of spine abscess - Discussed results of PET and MRI in detail with radiology. I have reviewed with patient and family and plan will be to begin Hormonal therapy and plan for chemoembolization of local hepatocellular cancer with q3 month Lupron after acute infectious process is resolved Current Visit: Yes Status: Acute Code(s): M54.5 - LOW BACK PAIN SNOMED Code(s): 77020617632266904 (2) Inferior vena cava thromboembolism Narrative/Plan: - Likely secondary to malignancy/cies. Was on xarelto as outpatient - Heparin Drip at this time, as long as no post op bleeding and ok with ortho will convert - Since no signs of bleeding and pathology has resulted as negative will stop heparin drip and start back on PO AC therapy. Current Visit: No Status: Acute Priority: High Code(s): I82.220 - ACUTE EMBOLISM AND THROMBOSIS OF INFERIOR VENA CAVA SNOMED Code(s): 580556004 (3) Hepatocellular carcinoma Narrative/Plan: - Appears to be localized likely candidate chemoembolization of liver, will need to address acute lumbarsacral infectious process prior to intervention for liver lesion. Current Visit: Yes Status: Acute Code(s): C22.0 - LIVER CELL CARCINOMA SNOMED Code(s): 902311442 (4) Prostate cancer Narrative/Plan: - As noted the patient had multiple prior prostate biopsies that were negative. The diagnosis was made via lymph node biopsy last month. PSA has been stable in the low 20 range. Current Visit: Yes Status: Acute Code(s): C61 - MALIGNANT NEOPLASM OF PROSTATE SNOMED Code(s): 759038575 (5) Osteomyelitis/Diskitis: status Post Surgery 12/05/18. He may resume anticoagulation with heparin drip first 24-48 post op to ensure no bleeding, then will convert back to PO - ID is following and ANtibiotics at discharge per Dr. Acosta (6) Ecoli UTI - Recurrent: - Massive prostate and new diagnosis of prostate cancer Plan: - Robaxin appears to be better controlling pain over flexeril - Monitor mental status - Ortho input on timeline regarding pain and improvement of spasms - Discussed with patient - Cotninue regimen
[2018-12-16] MEDS: RIVAROXABAN 20 MG TAB PO SCH (18:07)
[2018-12-17] MEDS: CEFEPIME 1 GM in SODIUM CHLORIDE 0.9% 50 ML IVPB SCH ×3 (00:10→15:20)
--- NOTE | 2018-12-17 01:09 | P.PN ---
Subjective Progress Note Date: 12/14/18 Principal diagnosis: acute back pain secondary to diskitis and epidural abscess. s/p lamenectomy epidural abscess status post debridement This is a pleasant 83 years old male with past medical history of liver cancer presents because of back pain. He is status post laminectomy and decompression of the spinal cord with debridement of epidural abscess at L4-L5, and partial corpectomy of L4 osteomyelitis. Orthopedic team and infectious team are following the patient. Patient is main complaint currently is his postop back pain, which is looks better controlled with Dilaudid and [place]. His pain came down today from 7 down to 4/10. He is not much in distress. No chest pain or dyspnea. No nausea vomiting. He has constipation probably from his pain medication. Wound culture is growing E. coli. Patient currently on vancomycin and cefepime. He was on xarelto, which is switched to heparin drip and need to switched back to xarelto upon discharge. 12/11/18 pt is still has significant pain in his back although it is improving and better controled, no chest pain , no dyspnea , pt on antibiotic as per ID , pt may need picc/midline upon discharge for extending antibiotic therapy for 6 weeks as per ID team 12/12/18 pt is still improving slowly , oncology and orthopedic teams are following the case closely 12/13/2018 pt is more drowsy in the morning however when i saw him he was awake and alert , pt told me he still has significant pain . pt pain medication was increased which might be contributed to his temporary confusion , we will keep monitoring for now and adjusted medication later if confusion recurs, pt will need picc line for possible prolonged IV medication and for better iv access, plan for ECF rehab upon discharge 12/14/2018 Patient is still complaining of back muscle spasms. Unable to ambulate by himself. Patient is being continued on pain management with long-acting and short-acting morphine. Otherwise no fever no chills. Patient did have a PICC line placed for long-term antibiotic course. Possible transfer to rehab in next 24 hours with improvement in pain. No fever no chills. Patient is awake Oriented 3. No nausea vomiting or abdominal pain. No chest pain or shortness breath. Current medications reviewed. Objective - Vital Signs Vital signs: Vital Signs Temp 98.5 F 12/16/18 20:40 Pulse 83 12/16/18 20:40 Resp 17 12/16/18 20:40 BP 134/85 12/16/18 20:40 Pulse Ox 97 12/16/18 20:40 Intake & Output 12/16/18 12/16/18 12/17/18 06:59 18:59 06:59 Intake Total 1690 Output Total 350 Balance 1340 Intake: Intake, IV Titration 1000 Amount 0.9% NaCl with KCl 40 Meq 900 /l 1,000 ml @ 75 mls/hr IV .[id number] DIPESH Rx#: [id number] Cefepime 1 gm In Sodium 100 Chloride 0.9% 50 ml @ 100 mls/hr IVPB Q8HR DIPESH Rx# :[id number] Oral 690 Output: Urine 350 Other: Voiding Method Urinal Urinal # Voids 3 # Bowel Movements 1 2 - Exam GENERAL: The patient is alert and oriented x3, not in any acute distress. Well developed, well nourished. HEENT: Pupils are round and equally reacting to light. EOMI. No scleral icterus. No conjunctival pallor. Normocephalic, atraumatic. No pharyngeal erythema. No thyromegaly. CARDIOVASCULAR: S1 and S2 present. No murmurs, rubs, or gallops. PULMONARY: Chest is clear to auscultation, no wheezing or crackles. ABDOMEN: Soft, nontender, nondistended, normoactive bowel sounds. No palpable organomegaly. -MUSCULOSKELETAL: No joint swelling or deformity. Back exam, patient refused because his painful : deferred to the orthopedic team EXTREMITIES: No cyanosis, clubbing, or pedal edema. NEUROLOGICAL: Gross neurological examination did not reveal any focal deficits. No weakness in the lower extremity SKIN: No rashes. - Labs CBC & Chem 7: 12/16/18 09:31 12/16/18 09:31 Labs: Abnormal Lab Results - Last 24 Hours (Table) 12/16/18 12/16/18 Range/Units 09:31 09:31 WBC 13.7 H (3.8-10.6) k/uL RBC 3.97 L (4.30-5.90) m/uL Hgb 10.9 L (13.0-17.5) gm/dL Hct 35.1 L (39.0-53.0) % RDW 16.1 H (11.5-15.5) % Neutrophils # 10.9 H (1.3-7.7) k/uL Glucose 131 H (74-99) mg/dL Calcium 10.3 H (8.4-10.2) mg/dL Alkaline Phosphatase 150 H (38-126) U/L Albumin 3.1 L (3.5-5.0) g/dL Assessment and Plan Assessment: acute back pain secondary to diskitis and epidural abscess. 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 ID team are following the pt and they are managing the antibiotic . orthopedic following up with pt as well Labs and medication were reviewed.. Continue same treatment. Continue with symptomatic treatment. Resume home medication. Monitor lytes and vitals. DVT and GI prophylaxis. Further recommendations of the clinical course of the patient PICC line placed. Possible rehab transfer. Awaiting placement. DVT prophylaxis: heparin GI Prophylaxis: protonix PT/OT: Pending Prognosis is guarded Time with Patient: Greater than 30
--- NOTE | 2018-12-17 01:10 | P.PN ---
Subjective Progress Note Date: 12/15/18 Principal diagnosis: acute back pain secondary to diskitis and epidural abscess. s/p lamenectomy epidural abscess status post debridement This is a pleasant 83 years old male with past medical history of liver cancer presents because of back pain. He is status post laminectomy and decompression of the spinal cord with debridement of epidural abscess at L4-L5, and partial corpectomy of L4 osteomyelitis. Orthopedic team and infectious team are following the patient. Patient is main complaint currently is his postop back pain, which is looks better controlled with Dilaudid and [place]. His pain came down today from 7 down to 4/10. He is not much in distress. No chest pain or dyspnea. No nausea vomiting. He has constipation probably from his pain medication. Wound culture is growing E. coli. Patient currently on vancomycin and cefepime. He was on xarelto, which is switched to heparin drip and need to switched back to xarelto upon discharge. 12/11/18 pt is still has significant pain in his back although it is improving and better controled, no chest pain , no dyspnea , pt on antibiotic as per ID , pt may need picc/midline upon discharge for extending antibiotic therapy for 6 weeks as per ID team 12/12/18 pt is still improving slowly , oncology and orthopedic teams are following the case closely 12/13/2018 pt is more drowsy in the morning however when i saw him he was awake and alert , pt told me he still has significant pain . pt pain medication was increased which might be contributed to his temporary confusion , we will keep monitoring for now and adjusted medication later if confusion recurs, pt will need picc line for possible prolonged IV medication and for better iv access, plan for ECF rehab upon discharge. 12/14/2018 Patient is still complaining of back muscle spasms. Unable to ambulate by himself. Patient is being continued on pain management with long-acting and short-acting morphine. Otherwise no fever no chills. Patient did have a PICC line placed for long-term antibiotic course. Possible transfer to rehab in next 24 hours with improvement in pain. No fever no chills. Patient is awake Oriented 3. No nausea vomiting or abdominal pain. No chest pain or shortness breath. 12/15/2018 Patient is still complaining of back spasms. No complaints of chest pain or shortness of breath. No fever no chills. Awaiting transfer to [facility] possibly on Monday. Oncology on board. Continue the current pain medications. Flexeril changed to 7.5 mg as he is getting more drowsy with 10 mg 3 times a day. No other acute overnight issues. Current medications reviewed. Objective - Vital Signs Vital signs: Vital Signs Temp 98.1 F 12/16/18 05:00 Pulse 87 12/16/18 05:00 Resp 18 12/16/18 05:00 BP 134/85 12/16/18 05:00 Pulse Ox 94 L 12/16/18 05:00 Intake & Output 12/15/18 12/16/18 12/16/18 18:59 06:59 18:59 Intake Total 1690 Output Total 350 Balance 1340 Intake: Intake, IV Titration 1000 Amount 0.9% NaCl with KCl 40 Meq 900 /l 1,000 ml @ 75 mls/hr IV .[id number] DIPESH Rx#: [id number] Cefepime 1 gm In Sodium 100 Chloride 0.9% 50 ml @ 100 mls/hr IVPB Q8HR DIPESH Rx# :[id number] Oral 690 Output: Urine 350 Other: Voiding Method Urinal Urinal # Bowel Movements 1 - Exam GENERAL: The patient is alert and oriented x3, not in any acute distress. Well developed, well nourished. HEENT: Pupils are round and equally reacting to light. EOMI. No scleral icterus. No conjunctival pallor. Normocephalic, atraumatic. No pharyngeal erythema. No thyromegaly. CARDIOVASCULAR: S1 and S2 present. No murmurs, rubs, or gallops. PULMONARY: Chest is clear to auscultation, no wheezing or crackles. ABDOMEN: Soft, nontender, nondistended, normoactive bowel sounds. No palpable organomegaly. -MUSCULOSKELETAL: No joint swelling or deformity. Back exam, patient refused because his painful : deferred to the orthopedic team EXTREMITIES: No cyanosis, clubbing, or pedal edema. NEUROLOGICAL: Gross neurological examination did not reveal any focal deficits. No weakness in the lower extremity SKIN: No rashes. - Labs CBC & Chem 7: 12/16/18 09:31 12/16/18 09:31 Labs: Abnormal Lab Results - Last 24 Hours (Table) 01/27/19 01/27/19 Range/Units 09:31 09:31 WBC 13.7 H (3.8-10.6) k/uL RBC 3.97 L (4.30-5.90) m/uL Hgb 10.9 L (13.0-17.5) gm/dL Hct 35.1 L (39.0-53.0) % RDW 16.1 H (11.5-15.5) % Neutrophils # 10.9 H (1.3-7.7) k/uL Glucose 131 H (74-99) mg/dL Calcium 10.3 H (8.4-10.2) mg/dL Alkaline Phosphatase 150 H (38-126) U/L Albumin 3.1 L (3.5-5.0) g/dL Assessment and Plan Assessment: acute back pain secondary to diskitis and epidural abscess. 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 ID team are following the pt and they are managing the antibiotic . orthopedic following up with pt as well Labs and medication were reviewed.. Continue same treatment. Continue with symptomatic treatment. Resume home medication. Monitor lytes and vitals. DVT and GI prophylaxis. Further recommendations of the clinical course of the patient PICC line placed. Possible rehab transfer. Awaiting placement. DVT prophylaxis: heparin GI Prophylaxis: protonix PT/OT: Pending Prognosis is guarded
--- NOTE | 2018-12-17 01:12 | P.PN ---
Subjective Progress Note Date: 12/16/18 Principal diagnosis: acute back pain secondary to diskitis and epidural abscess. s/p lamenectomy epidural abscess status post debridement This is a pleasant 83 years old male with past medical history of liver cancer presents because of back pain. He is status post laminectomy and decompression of the spinal cord with debridement of epidural abscess at L4-L5, and partial corpectomy of L4 osteomyelitis. Orthopedic team and infectious team are following the patient. Patient is main complaint currently is his postop back pain, which is looks better controlled with Dilaudid and [place]. His pain came down today from 7 down to 4/10. He is not much in distress. No chest pain or dyspnea. No nausea vomiting. He has constipation probably from his pain medication. Wound culture is growing E. coli. Patient currently on vancomycin and cefepime. He was on xarelto, which is switched to heparin drip and need to switched back to xarelto upon discharge. 12/11/18 pt is still has significant pain in his back although it is improving and better controled, no chest pain , no dyspnea , pt on antibiotic as per ID , pt may need picc/midline upon discharge for extending antibiotic therapy for 6 weeks as per ID team 12/12/18 pt is still improving slowly , oncology and orthopedic teams are following the case closely 12/13/2018 pt is more drowsy in the morning however when i saw him he was awake and alert , pt told me he still has significant pain . pt pain medication was increased which might be contributed to his temporary confusion , we will keep monitoring for now and adjusted medication later if confusion recurs, pt will need picc line for possible prolonged IV medication and for better iv access, plan for ECF rehab upon discharge. 12/14/2018 Patient is still complaining of back muscle spasms. Unable to ambulate by himself. Patient is being continued on pain management with long-acting and short-acting morphine. Otherwise no fever no chills. Patient did have a PICC line placed for long-term antibiotic course. Possible transfer to rehab in next 24 hours with improvement in pain. No fever no chills. Patient is awake Oriented 3. No nausea vomiting or abdominal pain. No chest pain or shortness breath. 12/15/2018 Patient is still complaining of back spasms. No complaints of chest pain or shortness of breath. No fever no chills. Awaiting transfer to [facility] possibly on Monday. Oncology on board. Continue the current pain medications. Flexeril changed to 7.5 mg as he is getting more drowsy with 10 mg 3 times a day. 12/16/2018 Patient says that his back spasms are slightly better. Otherwise still having back spasms and is being continued on morphine oral. No fever no chills. No nausea vomiting or abdominal pain. Possible transfer to rehab tomorrow to complete IV antibiotic course.. No other acute overnight issues. Current medications reviewed. Objective - Vital Signs Vital signs: Vital Signs Temp 98.5 F 12/16/18 20:40 Pulse 83 12/16/18 20:40 Resp 17 12/16/18 20:40 BP 134/85 12/16/18 20:40 Pulse Ox 97 12/16/18 20:40 Intake & Output 12/16/18 12/16/18 12/17/18 06:59 18:59 06:59 Intake Total 1690 Output Total 350 Balance 1340 Intake: Intake, IV Titration 1000 Amount 0.9% NaCl with KCl 40 Meq 900 /l 1,000 ml @ 75 mls/hr IV .[id number] DIPESH Rx#: [id number] Cefepime 1 gm In Sodium 100 Chloride 0.9% 50 ml @ 100 mls/hr IVPB Q8HR DIPESH Rx# :[id number] Oral 690 Output: Urine 350 Other: Voiding Method Urinal Urinal # Voids 3 # Bowel Movements 1 2 - Exam GENERAL: The patient is alert and oriented x3, not in any acute distress. Well developed, well nourished. HEENT: Pupils are round and equally reacting to light. EOMI. No scleral icterus. No conjunctival pallor. Normocephalic, atraumatic. No pharyngeal erythema. No thyromegaly. CARDIOVASCULAR: S1 and S2 present. No murmurs, rubs, or gallops. PULMONARY: Chest is clear to auscultation, no wheezing or crackles. ABDOMEN: Soft, nontender, nondistended, normoactive bowel sounds. No palpable organomegaly. -MUSCULOSKELETAL: No joint swelling or deformity. Back exam, patient refused because his painful : deferred to the orthopedic team EXTREMITIES: No cyanosis, clubbing, or pedal edema. NEUROLOGICAL: Gross neurological examination did not reveal any focal deficits. No weakness in the lower extremity SKIN: No rashes. - Labs CBC & Chem 7: 12/16/18 09:31 12/16/18 09:31 Labs: Abnormal Lab Results - Last 24 Hours (Table) 12/16/18 12/16/18 Range/Units 09:31 09:31 WBC 13.7 H (3.8-10.6) k/uL RBC 3.97 L (4.30-5.90) m/uL Hgb 10.9 L (13.0-17.5) gm/dL Hct 35.1 L (39.0-53.0) % RDW 16.1 H (11.5-15.5) % Neutrophils # 10.9 H (1.3-7.7) k/uL Glucose 131 H (74-99) mg/dL Calcium 10.3 H (8.4-10.2) mg/dL Alkaline Phosphatase 150 H (38-126) U/L Albumin 3.1 L (3.5-5.0) g/dL Assessment and Plan Assessment: acute back pain secondary to diskitis and epidural abscess. 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 ID team are following the pt and they are managing the antibiotic . orthopedic following up with pt as well Labs and medication were reviewed.. Continue same treatment. Continue with symptomatic treatment. Resume home medication. Monitor lytes and vitals. DVT and GI prophylaxis. Further recommendations of the clinical course of the patient PICC line placed. Possible rehab transfer. Awaiting placement. DVT prophylaxis: heparin GI Prophylaxis: protonix PT/OT: Pending Prognosis is guarded
[2018-12-17] MEDS: MORPHINE SULFATE IR 15 MG TABLET PO PRN ×3 (01:38→17:18)
[2018-12-17] MEDS: LEVOTHYROXINE 100 MCG TAB PO SCH (05:09)
[2018-12-17 08:14] LABS: Basophils % (A) 0 %; Eosinophils # (A) 0.2 k/uL (0-0.7); Eosinophils % (A) 2 %; HCT 34.7 % (39.0-53.0); HGB 10.9 gm/dL (13.0-17.5); Hypochromasia Slight; Lymphocytes % (A) 9 %; MCH 27.3 pg (25.0-35.0); MCHC 31.3 g/dL (31.0-37.0); MCV 87.3 fL (80.0-100.0); Mean Platelet Volume 6.3; Monocytes # (A) 0.6 k/uL (0-1.0); Monocytes % (A) 6 %; Neutrophils # (A) 9.1 k/uL (1.3-7.7); Neutrophils % (A) 81 %; Platelet Count 448 k/uL (150-450); RBC 3.97 m/uL (4.30-5.90); RDW 15.9 % (11.5-15.5); WBC 11.1 k/uL (3.8-10.6)
--- NOTE | 2018-12-17 08:29 | P.PN ---
Subjective Progress Note Date: 12/17/18 Principal diagnosis: Principal diagnoses: Status post L4-5 laminectomy and decompression with bilateral partial medial facetectomy and foraminotomy with irrigation and excisional debridement of epidural abscess with partial corpectomy of L4 osteomyelitis and repair of 2 mm incidental durotomy L4-5 and L5-S1 bony destructive changes compatible with acute discitis/ osteomyelitis Lumbar epidural abscess L4-5 spinal canal stenosis and neural foraminal stenosis Intractable low back pain Right lower extremity radiculopathy Hepatocellular cancer Prostate cancer Inability to ambulate due to pain 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 He is status post L4-5 laminectomy and decompression with bilateral partial medial facetectomy and foraminotomy with irrigation and excisional debridement of epidural abscess with partial corpectomy of L4 osteomyelitis and repair of 2 mm incidental durotomy performed on 12/05/2018. Since being seen and examined Monday his symptoms have remained the same without significant change other than some increased difficulty with pain control.. He is currently sitting lying in bed and states he has less pain in his lumbar spine and right lower extremity while at rest. He does have some increased pain with increased activities and difficulty with ambulation.. He is not experiencing any spinal headaches. He states he has been eating and voiding without difficulty does not have much of an appetite. He has no new complaints of the bedside. He continues to be seen by Dr. Singletary in oncology, by Dr. Acosta in infectious disease , and by medicine. Recent lymph node biopsy was positive for prostate cancer. Liver biopsy was positive for hepatocellular cancer. Patient's pain to be discharged to [facility] at the time of discharge. Patient continues to be on Xarelto. PICC line was placed this past . Patient states he is unsure when he'll be discharged. Patient history: He was previously seen and examined in the hospital in September 2018. Since that time he has had a significant exacerbation of back pain. He states his back pain is better controlled while lying flat in bed. Currently his pain is severe down the right lower extremity with increased ambulation and activities. He states following previous discharge from the hospital he felt he was doing fairly well until this past 12/01/2018. Prior to that time he was able to ambulate with the assistance of a walker. At his last visit imaging showed changes within the liver and he was waiting for liver biopsy after ultrasound results showed the liver was enlarged with 2 hypoechoic mass suspicious for metastatic disease. He was found to have hepatocellular carcinoma. Given his severe pain in his lumbar spine, a PET scan was performed on 12/01/2018. A CT of the lumbar spine has also been performed as well as an MRI of the lumbar spine. On imaging he was found to have bony destructive changes at L4-5 and L5-S1 with evidence of paraspinal mass consistent with acute discitis/osteomyelitis along with epidural abscess. These findings were not evident on previous imaging taken at his last admission in September 2018. Patient has continued to follow with Dr. Singletary in oncology. His symptoms have progressed as compared to his previous admittance to the hospital. Patient does have a history of prostate cancer. Objective - Vital Signs Vital signs: Vital Signs Temp 97.7 F 12/17/18 05:00 Pulse 108 H 12/17/18 05:00 Resp 17 12/17/18 05:00 BP 159/78 12/17/18 05:00 Pulse Ox 98 12/17/18 05:00 Intake & Output 12/16/18 12/17/18 12/17/18 18:59 06:59 18:59 Intake Total 780 Balance 780 Intake: Intake, IV Titration 300 Amount 0.9% NaCl with KCl 40 Meq 300 /l 1,000 ml @ 75 mls/hr IV .[id number] [facility] Rx#: [id number] Oral 480 Other: Voiding Method Urinal Urinal # Voids 3 2 # Bowel Movements 2 3 - Exam Physical exam: Patient is awake, alert, and oriented 3 Vital signs stable Good chest excursion with deep inspiration and expiration Abdomen is soft nontender Patient is currently lying in bed Patient rolls over in bed slowly Nonstick Telfa and Tegaderm is clean, dry, intact with no active drainage No significant pain with palpation of the incision site Dorsiflexion, plantarflexion, and extensor hallucis longus positive sustained bilaterally Lower extremity strength 5/5 bilaterally Patient is able to lift legs independently in bed without but movements are somewhat slow No evidence of DVT; no pain with palpation of bilateral calves - Labs CBC & Chem 7: 12/17/18 07:37 12/16/18 09:31 Labs: Abnormal Lab Results - Last 24 Hours (Table) 12/16/18 12/16/18 12/17/18 Range/Units 09:31 09:31 07:37 WBC 13.7 H 11.1 H (3.8-10.6) k/uL RBC 3.97 L 3.97 L (4.30-5.90) m/uL Hgb 10.9 L 10.9 L (13.0-17.5) gm/dL Hct 35.1 L 34.7 L (39.0-53.0) % RDW 16.1 H 15.9 H (11.5-15.5) % Neutrophils # 10.9 H 9.1 H (1.3-7.7) k/uL Glucose 131 H (74-99) mg/dL Calcium 10.3 H (8.4-10.2) mg/dL Alkaline Phosphatase 150 H (38-126) U/L Albumin 3.1 L (3.5-5.0) g/dL Assessment and Plan Assessment: Assessment: L4-5 laminectomy and decompression with bilateral partial medial facetectomy and foraminotomy with irrigation and excisional debridement of epidural abscess with partial corpectomy of L4 osteomyelitis and repair of 2 mm incidental durotomy L4-5 and L5-S1 bony destructive changes compatible with acute discitis/ osteomyelitis Lumbar epidural abscess L4-5 spinal canal stenosis and neural foraminal stenosis Intractable low back pain Right lower extremity radiculopathy Positive urine culture for E. coli Positive wound culture for E. 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 (1) Discitis of lumbar region Current Visit: Yes Status: Acute Code(s): M46.46 - DISCITIS, UNSPECIFIED, LUMBAR REGION SNOMED Code(s): 389150843 (2) Lumbar stenosis Current Visit: Yes Status: Acute Code(s): M48.061 - SPINAL STENOSIS, LUMBAR REGION WITHOUT NEUROGENIC [place] SNOMED Code(s): 89594477 (3) Lumbar herniated disc Current Visit: Yes Status: Acute Code(s): M51.26 - OTHER INTERVERTEBRAL DISC DISPLACEMENT, LUMBAR REGION SNOMED Code(s): 697971746 (4) Epidural abscess Current Visit: Yes Status: Acute Code(s): G06.2 - EXTRADURAL AND SUBDURAL ABSCESS, UNSPECIFIED SNOMED Code(s): 83891764 (5) Hepatocellular carcinoma Current Visit: Yes Status: Acute Code(s): C22.0 - LIVER CELL CARCINOMA SNOMED Code(s): 022232666 (6) Intractable low back pain Current Visit: Yes Status: Acute Code(s): M54.5 - LOW BACK PAIN SNOMED Code(s): 62766972504445987 (7) Prostate cancer Current Visit: Yes Status: Acute Code(s): C61 - MALIGNANT NEOPLASM OF PROSTATE SNOMED Code(s): 784710430 (8) Inferior vena cava thromboembolism Current Visit: No Status: Acute Priority: High Code(s): I82.220 - ACUTE EMBOLISM AND THROMBOSIS OF INFERIOR VENA CAVA SNOMED Code(s): 001531503 Plan: Plan: 1. We will continue with the plan as previously set forth. Patient is status post L4-5 laminectomy and decompression with bilateral partial medial facetectomy and foraminotomy with irrigation and excisional debridement of epidural abscess with partial corpectomy of L4 osteomyelitis and repair of 2 mm incidental durotomy. Following the repair of his incidental durotomy, patient was able to sit upright on 12/07/2018 without any evidence of spinal headaches. Patient has been able to increase mobility and ambulation since being seen and examined yesterday. He is currently sitting in a bedside chair without any difficulty. He has not been experiencing any spinal headaches. We discussed he should continue with bracing while out of bed and doing increased activities and working with physical therapy. He should continue to work on increasing mobility and ambulation with the assistance of physical therapy. We are currently planning for any further surgical intervention at his lumbosacral spine. We'll plan to have other medical providers continue pain control with medications prescribed by them. From an orthopedic spine standpoint, patient will be clear for discharge once cleared by other medical providers. We will plan have him follow-up in the outpatient setting in approximately 1-2 weeks for further evaluation. 2. Drainage from a small opening in the superior portion of his incision has continued to remain close over the weekend and he is not currently experiencing any active drainage at the incision site. At rehabilitation, they may continue with daily dressing changes with nonstick Telfa and Tegaderm as needed. Dressing over the incision site may be discontinued his incision continues to remain clean, dry, intact with no active drainage and no dehiscence. If dressing continues to be clean, dry, and intact, patient may shower without a dressing at this time. 3. Patient will continue be seen in exam by medicine, infectious disease, pain management and oncology for his significant medical diagnoses; PICC line has been placed; patient has been started on Xarelto per oncology; patient's pain medication has been adjusted by oncology. Time with Patient: Less than 30
[2018-12-17] MEDS: MORPHINE SULFATE ER 15 MG TABLET PO SCH ×2 (08:39→20:14)
[2018-12-17] MEDS: ATENOLOL 25 MG TAB PO SCH (08:40)
[2018-12-17] MEDS: PANTOPRAZOLE 40 MG TABLET PO SCH (08:40)
[2018-12-17] MEDS: TAMSULOSIN 0.4 MG CAP.ER.24H PO SCH (08:40)
[2018-12-17] MEDS: METHOCARBAMOL 500 MG TAB PO SCH ×3 (08:41→21:57)
[2018-12-17] MEDS: POLYETHYLENE GLYCOL 3350 17 GM POWD.PACK PO SCH ×2 (08:41→20:01)
[2018-12-17] MEDS: SENNOSIDES-DOCUSATE SODIUM 1 EACH TAB PO SCH ×2 (08:41→20:01)
--- NOTE | 2018-12-17 11:49 | P.PN ---
Subjective Progress Note Date: 12/17/18 Principal diagnosis: Osteomylitis. New diagnoses of Prostate and HCC Pt seen today in f/u. He thinks he is going to rehab soon. Denies fever, nausea, his pain is fairly well controlled Objective - Vital Signs Vital signs: Vital Signs Temp 97.7 F 12/17/18 05:00 Pulse 108 H 12/17/18 05:00 Resp 17 12/17/18 05:00 BP 159/78 12/17/18 05:00 Pulse Ox 98 12/17/18 05:00 Intake & Output 12/16/18 12/17/18 12/17/18 18:59 06:59 18:59 Intake Total 780 Balance 780 Intake: Intake, IV Titration 300 Amount 0.9% NaCl with KCl 40 Meq 300 /l 1,000 ml @ 75 mls/hr IV .[id number] [facility] Rx#: [id number] Oral 480 Other: Voiding Method Urinal Urinal # Voids 3 2 # Bowel Movements 2 3 - Constitutional General appearance: Present: average body habitus, cooperative, no acute distress - EENT Eyes: Present: anicteric sclerae, EOMI - Respiratory Details: respirations even and unlabored - Cardiovascular Heart sounds: normal: S1, S2 - Gastrointestinal General gastrointestinal: Present: normal bowel sounds, soft - Musculoskeletal Musculoskeletal: Present: generalized weakness - Psychiatric Psychiatric: Present: A&O x's 3, appropriate affect, intact judgment & insight - Labs CBC & Chem 7: 12/17/18 07:37 12/16/18 09:31 Labs: Abnormal Lab Results - Last 24 Hours (Table) 12/17/18 Range/Units 07:37 WBC 11.1 H (3.8-10.6) k/uL RBC 3.97 L (4.30-5.90) m/uL Hgb 10.9 L (13.0-17.5) gm/dL Hct 34.7 L (39.0-53.0) % RDW 15.9 H (11.5-15.5) % Neutrophils # 9.1 H (1.3-7.7) k/uL Assessment and Plan (1) Hepatocellular carcinoma Narrative/Plan: It appears pt has limited disease in the liver. Plan is to eval and treat with chemo-embolization if possible. Pt will be evaluated for this after he is released from rehabilitation Current Visit: Yes Status: Acute Priority: High Code(s): C22.0 - LIVER CELL CARCINOMA SNOMED Code(s): 429233657 (2) Prostate cancer Narrative/Plan: PSA is 20.6. Plan is to start androgen deprivation therapy once discharged for rehabilitation. Current Visit: Yes Status: Acute Priority: High Code(s): C61 - MALIGNANT NEOPLASM OF PROSTATE SNOMED Code(s): 602516949 Plan: Osteomylitis: causing pt back pain. He has had procedure with Ortho Spine and he is receiving abx under the direction of Infectious Disease. Pt will not be treated for either of his malignancies until his infection is treated and cleared.
[2018-12-17] MEDS ORDERED: LEUPROLIDE ACET 7.5 MG SYRINGEKIT IM ONE (15:11)
[2018-12-17] MEDS ORDERED: LEUPROLIDE ACETATE 30 MG IM ONE (15:11)
[2018-12-17] MEDS: 0.9% NACL WITH KCL 40 MEQ/L 1,000 ML IV SCH (15:20)
[2018-12-17] MEDS: RIVAROXABAN 20 MG TAB PO SCH (17:18)
--- NOTE | 2018-12-17 23:16 | P.PN ---
Subjective This is a pleasant 83 years old male with past medical history of liver cancer presents because of back pain. He is status post laminectomy and decompression of the spinal cord with debridement of epidural abscess at L4-L5, and partial corpectomy of L4 osteomyelitis. Orthopedic team and infectious team are following the patient. Patient is main complaint currently is his postop back pain, which is looks better controlled with Dilaudid and [place]. His pain came down today from 7 down to 4/10. He is not much in distress. No chest pain or dyspnea. No nausea vomiting. He has constipation probably from his pain medication. Wound culture is growing E. coli. Patient currently on vancomycin and cefepime. He was on xarelto, which is switched to heparin drip and need to switched back to xarelto upon discharge. 12/11/18 pt is still has significant pain in his back although it is improving and better controled, no chest pain , no dyspnea , pt on antibiotic as per ID , pt may need picc/midline upon discharge for extending antibiotic therapy for 6 weeks as per ID team 12/12/18 pt is still improving slowly , oncology and orthopedic teams are following the case closely 12/13/2017 pt is more drowsy in the morning however when i saw him he was awake and alert , pt told me he still has significant pain . pt pain medication was increased which might be contributed to his temporary confusion , we will keep monitoring for now and adjusted medication later if confusion recurs, pt will need picc line for possible prolonged IV medication and for better iv access, plan for ECF rehab upon discharge i was off service 12/14-12/16 where pt was covered by another hospitalist 12/17/18 pt is lying in bed comfortable , no chest pain or dyspnea , no abd pain or n/v. he is tolerating diet . he still has some pain in lower back , pt could walk today with the physical therapist the whole corridor. vitals and labs reviewed. no fever, leukocytosis is improving from 13K to 11K. pt has left arm picc line and he will need prolonged cefepime therapy , pt denies any urinary signs or symptoms . pt daughter called from out [place] and she was updated about the pt condition by both the staff and the orthopedic team . possible discharge in 24/48 hours. pt will need f/u with oncology team upon discharge Objective - Vital Signs Vital signs: Vital Signs Temp 97.7 F 12/17/18 05:00 Pulse 108 H 12/17/18 05:00 Resp 17 12/17/18 05:00 BP 159/78 12/17/18 05:00 Pulse Ox 98 12/17/18 05:00 Intake & Output 12/16/18 12/17/18 12/17/18 18:59 06:59 18:59 Intake Total 780 Balance 780 Weight 81 kg Intake: Intake, IV Titration 300 Amount 0.9% NaCl with KCl 40 Meq 300 /l 1,000 ml @ 75 mls/hr IV .[id number] [facility] Rx#: [id number] Oral 480 Other: Voiding Method Urinal Urinal # Voids 3 2 # Bowel Movements 2 3 - Exam GENERAL: The patient is alert and oriented x3, not in any acute distress. Well developed, well nourished. HEENT: Pupils are round and equally reacting to light. EOMI. No scleral icterus. No conjunctival pallor. Normocephalic, atraumatic. No pharyngeal erythema. No thyromegaly. CARDIOVASCULAR: S1 and S2 present. No murmurs, rubs, or gallops. PULMONARY: Chest is clear to auscultation, no wheezing or crackles. ABDOMEN: Soft, nontender, nondistended, normoactive bowel sounds. No palpable organomegaly. -MUSCULOSKELETAL: No joint swelling or deformity. Back exam, patient refused because his painful : deferred to the orthopedic team EXTREMITIES: No cyanosis, clubbing, or pedal edema. NEUROLOGICAL: Gross neurological examination did not reveal any focal deficits. No weakness in the lower extremity SKIN: No rashes. - Labs CBC & Chem 7: 12/17/18 07:37 12/16/18 09:31 Labs: Abnormal Lab Results - Last 24 Hours (Table) 12/17/18 Range/Units 07:37 WBC 11.1 H (3.8-10.6) k/uL RBC 3.97 L (4.30-5.90) m/uL Hgb 10.9 L (13.0-17.5) gm/dL Hct 34.7 L (39.0-53.0) % RDW 15.9 H (11.5-15.5) % Neutrophils # 9.1 H (1.3-7.7) k/uL Assessment and Plan Assessment: acute back pain secondary to diskitis and epidural abscess. s/p lamenectomy epidural abscess status post debridement h/o liver cancer with possible metastatic lesion to the spine, however pathology report came back negative for malignancy h/o IVC thrombosis , on xarelto h/o prostate cancer ,PSA stable around low 20s Plan: this is a pleasant 83 yo M who presents with epidural abscess. ID team are following the pt and they are managing the antibiotic . orthopedic following up with pt as well Labs and medication were reviewed.. Continue same treatment. Continue with symptomatic treatment. Resume home medication. Monitor lytes and vitals. DVT and GI prophylaxis. Further recommendations of the clinical course of the patient DVT prophylaxis: heparin GI Prophylaxis: protonix PT/OT: Pending Prognosis is guarded
[2018-12-18] MEDS: MORPHINE SULFATE IR 15 MG TABLET PO PRN ×2 (00:32→15:37)
[2018-12-18] MEDS: CEFEPIME 1 GM in SODIUM CHLORIDE 0.9% 50 ML IVPB SCH ×4 (00:34→23:41)
[2018-12-18] MEDS: 0.9% NACL WITH KCL 40 MEQ/L 1,000 ML IV SCH ×2 (05:33→17:09)
[2018-12-18] MEDS: LEVOTHYROXINE 100 MCG TAB PO SCH (05:58)
[2018-12-18] MEDS: MORPHINE SULFATE ER 15 MG TABLET PO SCH ×2 (08:03→20:10)
[2018-12-18] MEDS: METHOCARBAMOL 500 MG TAB PO SCH ×3 (08:03→22:09)
[2018-12-18 08:15] LABS: Basophils % (A) 0 %; Eosinophils # (A) 0.3 k/uL (0-0.7); Eosinophils % (A) 2 %; HCT 34.5 % (39.0-53.0); HGB 11.3 gm/dL (13.0-17.5); Hypochromasia Slight; Lymphocytes # (A) 2.4 k/uL (1.0-4.8); Lymphocytes % (A) 20 %; MCH 28.3 pg (25.0-35.0); MCHC 32.6 g/dL (31.0-37.0); MCV 86.8 fL (80.0-100.0); Mean Platelet Volume 6.9; Monocytes # (A) 0.9 k/uL (0-1.0); Monocytes % (A) 7 %; Neutrophils # (A) 8.3 k/uL (1.3-7.7); Neutrophils % (A) 68 %; Platelet Count 488 k/uL (150-450); RBC 3.98 m/uL (4.30-5.90); WBC 12.2 k/uL (3.8-10.6)
[2018-12-18] MEDS: ATENOLOL 25 MG TAB PO SCH (08:28)
[2018-12-18] MEDS: PANTOPRAZOLE 40 MG TABLET PO SCH (08:28)
[2018-12-18] MEDS: SENNOSIDES-DOCUSATE SODIUM 1 EACH TAB PO SCH ×2 (08:29→20:14)
[2018-12-18] MEDS: POLYETHYLENE GLYCOL 3350 17 GM POWD.PACK PO SCH ×2 (08:29→20:14)
[2018-12-18] MEDS: TAMSULOSIN 0.4 MG CAP.ER.24H PO SCH (08:29)
--- NOTE | 2018-12-18 08:44 | P.PN ---
Progress Note - Text Progress Note Date: 12/18/18 Patient is a very pleasant 83-year-old male who is well known to our service who is seen and examined at the bedside for follow-up evaluation in regards to his intractable back pain and right lower extremity radiculopathy. He is status post L4-5 laminectomy and decompression with bilateral partial medial facetectomy and foraminotomy with irrigation and excisional debridement of epidural abscess with partial corpectomy of L4 osteomyelitis and repair of 2 mm incidental durotomy performed on 12/05/2018. Since being seen and examined yesterday he has had an exacerbation of spasms in the lumbar spine and lower extremities. He is unable to tell because of the exacerbation of the spasms. His most significant complaint currently is lumbar pain with spasm. He has not gotten out of bed since being seen and examined yesterday. He feels his symptoms have worsened today as compared to yesterday. He is not experiencing any spinal headaches. He states he has been eating and voiding without difficulty does not have much of an appetite. He continues to be seen by Dr. Singletary in oncology, by Dr. Acosta in infectious disease, and by medicine. Recent lymph node biopsy was positive for prostate cancer. Liver biopsy was positive for hepatocellular cancer. Patient's pain to be discharged to [facility] at the time of discharge. Patient continues to be on Xarelto. PICC line was placed this past . Patient states he is unsure when he'll be discharged. Patient history: He was previously seen and examined in the hospital in September 2018. Since that time he has had a significant exacerbation of back pain. He states his back pain is better controlled while lying flat in bed. Currently his pain is severe down the right lower extremity with increased ambulation and activities. He states following previous discharge from the hospital he felt he was doing fairly well until this past 12/01/2018. Prior to that time he was able to ambulate with the assistance of a walker. At his last visit imaging showed changes within the liver and he was waiting for liver biopsy after ultrasound results showed the liver was enlarged with 2 hypoechoic mass suspicious for metastatic disease. He was found to have hepatocellular carcinoma. Given his severe pain in his lumbar spine, a PET scan was performed on 12/01/2018. A CT of the lumbar spine has also been performed as well as an MRI of the lumbar spine. On imaging he was found to have bony destructive changes at L4-5 and L5-S1 with evidence of paraspinal mass consistent with acute discitis/osteomyelitis along with epidural abscess. These findings were not evident on previous imaging taken at his last admission in September 2018. Patient has continued to follow with Dr. Singletary in oncology. His symptoms have progressed as compared to his previous admittance to the hospital. Patient does have a history of prostate cancer. Physical exam: Patient is awake, alert, and oriented 3 Vital signs stable Good chest excursion with deep inspiration and expiration Abdomen is soft nontender Patient is currently lying in bed Patient rolls over in bed slowly Patient is experiencing significant spasm of the lumbar spine and lower extremities time of physical examination Dorsiflexion, plantarflexion, and extensor hallucis longus positive sustained bilaterally Lower extremity strength 5/5 bilaterally Patient is able to lift legs independently in bed without but movements are somewhat slow No evidence of DVT; no pain with palpation of bilateral calves Assessment/Principal diagnoses: L4-5 laminectomy and decompression with bilateral partial medial facetectomy and foraminotomy with irrigation and excisional debridement of epidural abscess with partial corpectomy of L4 osteomyelitis and repair of 2 mm incidental durotomy L4-5 and L5-S1 bony destructive changes compatible with acute discitis/ osteomyelitis Lumbar epidural abscess L4-5 spinal canal stenosis and neural foraminal stenosis Intractable low back pain Right lower extremity radiculopathy Positive urine culture for E. coli Positive wound culture for E. 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 We will continue with the plan as previously set forth. Patient is status post L4-5 laminectomy and decompression with bilateral partial medial facetectomy and foraminotomy with irrigation and excisional debridement of epidural abscess with partial corpectomy of L4 osteomyelitis and repair of 2 mm incidental durotomy. Following the repair of his incidental durotomy, patient was able to sit upright on 12/07/2018 without any evidence of spinal headaches. Patient was discussed in detail with his daughter by Dr. Miguel Kirby yesterday. Dr. Miguel Kirby discussed that much of his back pain stems from the significant destruction at L4-5 disc and vertebral body and is status post decompression discectomy and partial corpectomy. With the infection we held off on any instrumentation. He has significant spasm due to relative instability. Further surgical intervention for his spine would likely need to involve stabilization with hardware at L4-5 possibly L3-5. This would be quite extensive for him and it is difficult to predict how he would do with it particularly in light of his current infection. He would offer some stability but it is difficult protective for this would allow him to be more independent with his activities. He should continue with his medical management and pain control as prescribed by oncology. We encouraged him to wear his LSO brace while out of bed and doing increased activities and working with physical therapy. He should continue to work on increasing mobility and ambulation with the assistance of physical therapy. We are currently planning for any further surgical intervention at his lumbosacral spine. From an orthopedic spine standpoint, patient will be clear for discharge once cleared by other medical providers. We will plan have him follow-up in the outpatient setting in approximately 1-2 weeks for further evaluation. 2. Incision site has remained clean, dry, and intact. Patient may shower without Tegaderm dressing and intact at this time. 3. Patient will continue be seen in exam by medicine, infectious disease, pain management and oncology for his significant medical diagnoses; PICC line has been placed; patient has been started on Xarelto per oncology; patient's pain medication has been adjusted by oncology and further medication may need to be adjusted for significant spasm.
[2018-12-18] MEDS ORDERED: MORPHINE SULFATE 2 MG/ML SYRINGE IM STA (09:33)
[2018-12-18] MEDS ORDERED: LEUPROLIDE ACET 7.5 MG SYRINGEKIT IM ONE (14:00)
--- NOTE | 2018-12-18 16:28 | P.PN ---
Subjective Progress Note Date: 12/18/18 Principal diagnosis: Osteomylitis. New diagnoses of Prostate and HCC Pt seen today in f/u. I saw patient at lunchtime. Patient was in high Mcdonough' s position in bed feeding himself lunch. He has been having more back spasms, all across the back, random, intense when they come on. Patient denies fevers, nausea. Objective - Vital Signs Vital signs: Vital Signs Temp 98.2 F 12/18/18 12:35 Pulse 99 12/18/18 12:35 Resp 16 12/18/18 12:35 BP 156/97 12/18/18 12:35 Pulse Ox 98 12/18/18 12:35 Intake & Output 12/17/18 12/18/18 12/18/18 18:59 06:59 18:59 Intake Total 300 1500 600 Output Total 750 Balance 300 750 600 Weight 81 kg Intake: Intake, IV Titration 300 600 600 Amount 0.9% NaCl with KCl 40 Meq 300 600 550 /l 1,000 ml @ 75 mls/hr IV .[id number] DIPESH Rx#: [id number] Cefepime 1 gm In Sodium 50 Chloride 0.9% 50 ml @ 100 mls/hr IVPB Q8HR DIPESH Rx# :[id number] Oral 900 Output: Urine 750 Other: Voiding Method Urinal Urinal Urinal # Voids 2 - Constitutional Constitutional Comment(s): When speaking with pt on the phone pt could be heard breathing heavily, moaning in pain General appearance: Present: average body habitus, disheveled, mild distress - EENT Eyes: Present: anicteric sclerae ENT: Present: hearing grossly normal - Respiratory Respiratory: bilateral: CTA - Cardiovascular Heart sounds: normal: S1, S2 - Peripheral edema leg Peripheral Edema: bilateral: Trace - Gastrointestinal General gastrointestinal: Present: normal bowel sounds, soft - Integumentary Integumentary: Present: pale - Neurologic Neurologic Comment(s): no gross focal deficits noted - Musculoskeletal Musculoskeletal: Present: generalized weakness - Psychiatric Psychiatric Comment(s): patient was alert, feeding himself, he did have trouble staying on topic, he would revert back to his history of parathyroid dysfunction when I was trying to discuss with him his pain - Labs CBC & Chem 7: 12/18/18 07:30 12/16/18 09:31 Labs: Abnormal Lab Results - Last 24 Hours (Table) 12/18/18 12/18/18 Range/Units 07:30 07:30 WBC 12.2 H (3.8-10.6) k/uL RBC 3.98 L (4.30-5.90) m/uL Hgb 11.3 L (13.0-17.5) gm/dL Hct 34.5 L (39.0-53.0) % RDW 16.0 H (11.5-15.5) % Plt Count 488 H (150-450) k/uL Neutrophils # 8.3 H (1.3-7.7) k/uL Calcium 10.6 H (8.4-10.2) mg/dL Assessment and Plan (1) Hepatocellular carcinoma Narrative/Plan: It appears pt has limited disease in the liver. Plan is to eval and treat with chemo-embolization if possible. Pt will be referred for evaluation after resolution of osteomyelitis and he is released from rehabilitation Current Visit: Yes Status: Acute Priority: High Code(s): C22.0 - LIVER CELL CARCINOMA SNOMED Code(s): 395572275 (2) Prostate cancer Narrative/Plan: Monthly dose of Lupron given. Most recent PSA was 20.6 Current Visit: Yes Status: Acute Priority: High Code(s): C61 - MALIGNANT NEOPLASM OF PROSTATE SNOMED Code(s): 671480201 Plan: Ca++ 10.6- patient has a history of parathyroid dysfunction. Parathyroid hormone level ordered. Will recheck Ca++ in AM. Osteomylitis: causing pt back pain. He has had procedure with Ortho Spine and he is receiving abx under the direction of Infectious Disease. Pt will not be treated for either of his malignancies until his infection is treated and cleared. Discussed with nursing patient's uncontrolled back spasms, Nursing will contact Orthopedic Spine as well as Pain Management services to revisit the patient, evaluate and treat. MSIR frequency was increased to Q 3 hours PRN
[2018-12-18] MEDS ORDERED: methylPREDNISolone SOD SUCCI 125 MG/2 ML VIAL IV STA (17:03)
[2018-12-18] MEDS: RIVAROXABAN 20 MG TAB PO SCH (17:10)
--- NOTE | 2018-12-18 20:05 | XR ---
EXAMINATION TYPE: XR lumbar spine 2 or 3V DATE OF EXAM: 12/18/2018 COMPARISON: 10/09/1718 HISTORY: Back pain TECHNIQUE: 4 views FINDINGS: Lumbar vertebra have normal alignment. There is narrowing of disc spaces in the lumbar spin e and more at L4-5 L5-S1. There is no compression fracture. Sacroiliac joints are intact. IMPRESSION: Spondylotic changes in the lower lumbar spine. No fracture. No significant change compare d to old exam.
[2018-12-18] MEDS: DIAZEPAM 5 MG TAB PO PRN (22:09)
[2018-12-18 22:31] LABS: Appearance,Urine Turbid (Clear); Bacteria,Urine Many /hpf; Bilirubin,Urine Negative (Negative); Blood,Urine Small (Negative); Color,Urine Yellow; Glucose,Urine (UA) Negative (Negative); Hyaline Casts,Urine 234 /lpf (0-2); Ketones,Urine Negative (Negative); Leukocyte Esterase,Urine Large (Negative); Nitrite,Urine Positive (Negative); PH, Urine 6.5 (5.0-8.0); Protein,Urine 1+ (Negative); RBC,Urine 18 /hpf (0-5); Specific Gravity,Urine 1.014 (1.001-1.035); Squamous Epithelial Cell,Urine 8 /hpf (0-4); Urobilinogen,Urine <2.0 mg/dL (<2.0); WBC,Urine >182 /hpf (0-5)
[2018-12-18 22:33] LABS: Mucus,Urine Occasional /hpf
--- NOTE | 2018-12-18 23:14 | P.PN ---
Subjective This is a pleasant 83 years old male with past medical history of liver cancer presents because of back pain. He is status post laminectomy and decompression of the spinal cord with debridement of epidural abscess at L4-L5, and partial corpectomy of L4 osteomyelitis. Orthopedic team and infectious team are following the patient. Patient is main complaint currently is his postop back pain, which is looks better controlled with Dilaudid and [place]. His pain came down today from 7 down to 4/10. He is not much in distress. No chest pain or dyspnea. No nausea vomiting. He has constipation probably from his pain medication. Wound culture is growing E. coli. Patient currently on vancomycin and cefepime. He was on xarelto, which is switched to heparin drip and need to switched back to xarelto upon discharge. 12/11/18 pt is still has significant pain in his back although it is improving and better controled, no chest pain , no dyspnea , pt on antibiotic as per ID , pt may need picc/midline upon discharge for extending antibiotic therapy for 6 weeks as per ID team 12/12/18 pt is still improving slowly , oncology and orthopedic teams are following the case closely 12/13/2017 pt is more drowsy in the morning however when i saw him he was awake and alert , pt told me he still has significant pain . pt pain medication was increased which might be contributed to his temporary confusion , we will keep monitoring for now and adjusted medication later if confusion recurs, pt will need picc line for possible prolonged IV medication and for better iv access, plan for [facility]CF rehab upon discharge i was off service 12/14-12/16 where pt was covered by another hospitalist 12/17/18 pt is lying in bed comfortable , no chest pain or dyspnea , no abd pain or n/v. he is tolerating diet . he still has some pain in lower back , pt could walk today with the physical therapist the whole corridor. vitals and labs reviewed. no fever, leukocytosis is improving from 13K to 11K. pt has left arm picc line and he will need prolonged cefepime therapy , pt denies any urinary signs or symptoms . pt [place] and she was updated about the pt condition by both the staff and the orthopedic team . possible discharge in 24/48 hours. pt will need f/u with oncology team upon discharge 12/18/2018 Patient today have significant back pain about 10/10 in severity as per patient starting today. Yesterday patient walked in the hallway with the help of the physical therapist, however patient was refusing to put the brace. Patient was counseled and instructed to put the brace on especially when sitting up or moving as per orthopedics recommendation and now he agrees. Continue more pain medication. Since patient pain was significant, patient will need to send the hospital and we'll keep following up with him. No fever. Slightly tachycardic. Leukocytosis at 12.2 Objective - Vital Signs Vital signs: Vital Signs Temp 98.2 F 12/18/18 12:35 Pulse 99 12/18/18 12:35 Resp 16 12/18/18 12:35 BP 156/97 12/18/18 12:35 Pulse Ox 98 12/18/18 12:35 Intake & Output 12/17/18 12/18/18 12/18/18 18:59 06:59 18:59 Intake Total 300 1500 Output Total 750 Balance 300 750 Weight 81 kg Intake: Intake, IV Titration 300 600 Amount 0.9% NaCl with KCl 40 Meq 300 600 /l 1,000 ml @ 75 mls/hr IV .[id number] DIPESH Rx#: [id number] Oral 900 Output: Urine 750 Other: Voiding Method Urinal Urinal Urinal # Voids 2 - Exam GENERAL: The patient is alert and oriented x3, not in any acute distress. Well developed, well nourished. HEENT: Pupils are round and equally reacting to light. EOMI. No scleral icterus. No conjunctival pallor. Normocephalic, atraumatic. No pharyngeal erythema. No thyromegaly. CARDIOVASCULAR: S1 and S2 present. No murmurs, rubs, or gallops. PULMONARY: Chest is clear to auscultation, no wheezing or crackles. ABDOMEN: Soft, nontender, nondistended, normoactive bowel sounds. No palpable organomegaly. -MUSCULOSKELETAL: No joint swelling or deformity. Back exam, patient refused because his painful : deferred to the orthopedic team EXTREMITIES: No cyanosis, clubbing, or pedal edema. NEUROLOGICAL: Gross neurological examination did not reveal any focal deficits. No weakness in the lower extremity SKIN: No rashes. - Labs CBC & Chem 7: 12/18/18 07:30 12/16/18 09:31 Labs: Abnormal Lab Results - Last 24 Hours (Table) 12/18/18 12/18/18 Range/Units 07:30 07:30 WBC 12.2 H (3.8-10.6) k/uL RBC 3.98 L (4.30-5.90) m/uL Hgb 11.3 L (13.0-17.5) gm/dL Hct 34.5 L (39.0-53.0) % RDW 16.0 H (11.5-15.5) % Plt Count 488 H (150-450) k/uL Neutrophils # 8.3 H (1.3-7.7) k/uL Calcium 10.6 H (8.4-10.2) mg/dL Assessment and Plan Assessment: acute back pain secondary to diskitis and epidural abscess. s/p lamenectomy epidural abscess status post debridement h/o liver cancer with possible metastatic lesion to the spine, however pathology report came back negative for malignancy h/o IVC thrombosis , on xarelto h/o prostate cancer ,PSA stable around low 20s Plan: this is a pleasant 83 yo M who presents with epidural abscess. ID team are following the pt and they are managing the antibiotic . orthopedic following up with pt as well Labs and medication were reviewed.. Continue same treatment. Continue with symptomatic treatment. Resume home medication. Monitor lytes and vitals. DVT and GI prophylaxis. Further recommendations of the clinical course of the patient DVT prophylaxis: heparin GI Prophylaxis: protonix PT/OT: Pending Prognosis is guarded
[2018-12-19] MEDS: MORPHINE SULFATE IR 15 MG TABLET PO PRN (04:35)
[2018-12-19] MEDS: LEVOTHYROXINE 100 MCG TAB PO SCH (06:16)
[2018-12-19] MEDS: 0.9% NACL WITH KCL 40 MEQ/L 1,000 ML IV SCH ×2 (06:16→21:57)
[2018-12-19] MEDS: PANTOPRAZOLE 40 MG TABLET PO SCH (07:32)
[2018-12-19] MEDS: ATENOLOL 25 MG TAB PO SCH (07:32)
[2018-12-19] MEDS: TAMSULOSIN 0.4 MG CAP.ER.24H PO SCH (07:32)
[2018-12-19] MEDS: MORPHINE SULFATE ER 15 MG TABLET PO SCH (07:32)
[2018-12-19] MEDS: POLYETHYLENE GLYCOL 3350 17 GM POWD.PACK PO SCH ×2 (07:32→22:52)
[2018-12-19] MEDS: DIAZEPAM 5 MG TAB PO PRN (07:32)
[2018-12-19] MEDS: SENNOSIDES-DOCUSATE SODIUM 1 EACH TAB PO SCH ×2 (07:32→22:52)
[2018-12-19 08:21] LABS: Anisocytosis Slight; Basophils # (A) 0.1 k/uL (0-0.2); Basophils % (A) 0 %; Eosinophils % (A) 0 %; Hypochromasia Slight; Lymphocytes # (A) 2.1 k/uL (1.0-4.8); Lymphocytes % (A) 11 %; MCH 27.2 pg (25.0-35.0); MCHC 31.5 g/dL (31.0-37.0); MCV 86.3 fL (80.0-100.0); Mean Platelet Volume 6.5; Monocytes # (A) 1.3 k/uL (0-1.0); Monocytes % (A) 7 %; Neutrophils # (A) 14.4 k/uL (1.3-7.7); Neutrophils % (A) 80 %; Platelet Count 595 k/uL (150-450); RBC 4.06 m/uL (4.30-5.90); RDW 16.2 % (11.5-15.5)
[2018-12-19 08:22] LABS: ALT 34 U/L (21-72); AST 40 U/L (17-59); Albumin 3.3 g/dL (3.5-5.0); Alkaline Phosphatase 151 U/L (38-126); Anion Gap 13 mmol/L; Blood Urea Nitrogen 19 mg/dL (9-20); Carbon Dioxide 19 mmol/L (22-30); Chloride 110 mmol/L (98-107); Glucose 130 mg/dL (74-99); Potassium 4.3 mmol/L (3.5-5.1); Sodium 142 mmol/L (137-145); Total Bilirubin 1.3 mg/dL (0.2-1.3); Total Protein 7.1 g/dL (6.3-8.2)
[2018-12-19] MEDS: CEFEPIME 1 GM in SODIUM CHLORIDE 0.9% 50 ML IVPB SCH ×3 (08:31→23:54)
--- NOTE | 2018-12-19 09:10 | US ---
EXAMINATION TYPE: US kidneys/renal and bladder DATE OF EXAM: 12/19/2018 COMPARISON: NONE CLINICAL HISTORY: UTI , worsening Urinalysis. UTI, history of prostate/colon cancer EXAM MEASUREMENTS: Right Kidney: 10.4 x 5.2 x 6.0 cm Left Kidney: 11.2 x 5.7 x 4.3 cm Technical limitations due to overlying bowel content Right Kidney: limited evaluation of lower pole, cystic area upper pole = 1.0 x 1.0 x 1.1cm appear sim ple Left Kidney: no evidence of hydronephrosis bilaterally, no evident abnormal calcification Bladder: multiple diverticula noted Bilateral Jets seen: no Kidneys show normal cortical medullary differentiation. The prostate is enlarged and shows an inferior impression on the bladder. IMPRESSION: Exam is limited. Probable chronic bladder outlet obstruction due to enlarged prostate. Simple cyst ri ght kidney.
--- NOTE | 2018-12-19 10:12 | CDI ---
Documentation Clarification Form Date: 12/19/2018 9:40:16 AM From: Aide Camejo RN, CCDS Admit Date: 12/02/2018 12:35:00 AM Patient Name: Griffin Summers Visit Number: [id number] Discharge Date: ATTENTION: The Clinical Documentation Specialists (CDI) and [facility] Coding Staff appreciate your assistance in clarifying documentation. Please respond to the clarification below the line at the bottom and electronically sign. The CDI & [facility] Coding staff will review the response and follow-up if needed. Please note: Queries are made part of the Legal Health Record. If you have any questions, please contact the author of this message via ITS. Dr. Quinton Ramos Osteomyelitis has been documented in the progress starting on 12/03/18 as impression on the Lumbar Spine MRI. History/Risk Factors: Prostate cancer, Colon cancer, Chronic back pain, Hypertension, Liver cancer Clinical Indicators: Present complaints of back pain, with diagnoses of cancer. His back pain has progressed. Lumbar CT: Destructive changes at the level of L4-5 disc with evidence of paraspinal mass that is consistent with acute and chronic discitis and phlegmon. Mild spinal stenosis. Lumbar MRI: Abnormal high intensity signal within the L4-L5 and lesser degree L5 -S1 intervertebral disc.. Finding are consistent with discitis/osteomyelitis. Pathologic Diagnosis: L4-L5 Disc space: Fibrocartiage and bone with abscess, necrosis, acute inflammation and acute osteomyelitis. Negative for malignancy Treatment: Laminectomy with decompression, Irrigation and excisional debridement of deep disc space at L4-5 Excisional debridement epidural abscess L4-5 Pain Management Maxipime IV In your professional opinion, please further specify the osteomyelitis Acuity: Acute Chronic Subacute Unable to Determine (Last Revision: August 2017) acute MTDD
[2018-12-19] MEDS: METHOCARBAMOL 500 MG TAB PO SCH ×3 (10:53→22:34)
--- NOTE | 2018-12-19 11:47 | P.PN ---
Subjective Progress Note Date: 12/19/18 Very pleasant 83-year-old male is known to the infectious disease service because of his many bouts of very tract infection. The patient has a long-standing history of a very large prostate with difficulties with some urinary retention resulting urinary tract infection. Recent infection has been with E. coli with no oral options and is receiving a couple of courses of outpatient intravenous antibiotic therapy and has done well. In September he was hospitalized with some back pain evaluations were performed showing evidence of degenerative disease and with local care and treatment of urinary infection he improved. 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 Percutaneous biopsy at this facility was performed and was nondiagnostic. He was seen at [facility] also with nondiagnostic testing. He eventually was seen at [facility] where biopsy was successful of the liver which reveal evidence of adenocarcinoma , and there is also evidence of enlarged lymph nodes in the pelvis which were diagnostic of prostate carcinoma. The patient was receiving anticoagulation therapy and was in the midst of workup for his underlying cancers, outpatient PET scan had just been performed. If this workup was occurring the patient was having increasing amounts of back pain on the day of admission was no longer able to ambulate because his pain was so severe. This lady was brought into the hospital and workup has been initiated and he has now been seen by orthopedic spine in the infectious diseases consultation was initiated. The patient is now had the follow-up MRI reveals evidence of the destruction of L4-L5 which is new compared to the September 2018 MRI. With concerns to discitis and epidural abscess the consult was requested. 12/07/2018 patient has significant pain of the LS-spine from the recent surgery. He however is not having fevers or chills. Nursing relates he ate his lunch. But is having some confusion. 12/10/2018 patient is now awake alert oriented to person place and time aware of his very vivid hallucinations. Pain control good control at this time. He has been getting up with physical therapy. the pathology is reviewed with the family no evidence of malignancy, only infection including osteomyelitis. 12/11/2018 patient is feeling somewhat better today. Pain is better controlled at times. Working toward his transfer to the extended care facility to complete his course of intravenous antibiotic therapy. Have discussed the therapy with the liaison and fortunately Maxipime is an option for treatment for his somewhat resistant Escherichia coli. 12/13/2018 patient has had some difficulty with severe pain after some sitting up activities. He received a large amount of narcotics and is somewhat sedated relates being awoken that his pain is better controlled this evening. No other new complaints are related 12/19/2018 patient remains quite miserable due to his back pain. Has been seen by orthopedic spine. Ulceration medication this occurred including a dose of Solu-Medrol to try to improve his swelling and pain. Patient is still quite uncomfortable this morning. No further fever or chills are noted. Her blood cell increase to 18. Objective - Vital Signs Vital signs: Vital Signs Temp 98 F 12/19/18 09:47 Pulse 110 H 12/19/18 09:47 Resp 24 12/19/18 04:58 BP 128/81 12/19/18 09:47 Pulse Ox 95 12/19/18 09:47 Intake & Output 12/18/18 12/19/18 12/19/18 18:59 06:59 18:59 Intake Total 600 300 Output Total 300 Balance 600 0 Intake: Intake, IV Titration 600 300 Amount 0.9% NaCl with KCl 40 Meq 550 300 /l 1,000 ml @ 75 mls/hr IV .[id number] DIPESH Rx#: [id number] Cefepime 1 gm In Sodium 50 Chloride 0.9% 50 ml @ 100 mls/hr IVPB Q8HR DIPESH Rx# :[id number] Output: Urine 300 Other: Voiding Method Urinal Urinal Incontinent # Voids 3 2 - Exam Pleasant 83-year-old male with pain medications is able to speak but is having severe pain postoperative HEENT: Anicteric conjunctiva are pink and moist nasal mucosa grossly intact without significant lesions, there is no thrush. Neck: The neck is supple without significant lymphadenopathy or thyromegaly. Lungs: Good bilateral air entry without significant crackles or wheezing. There is no significant bronchial sounds. There is no egophony or dullness. Heart: Regular rate and rhythm with an audible S1-S2, no S3 no S4. There is no significant murmur click or rub, PMI was nondisplaced. Abdomen: Minimally obese Positive bowel sounds soft and nontender without palpable masses or organomegaly. There was no guarding or rebound. Extremities: The upper extremities have excellent pulses they are symmetric, no significant petechiae or telangiectasia. No splinter hemorrhages were noted. Lower extremities without edema. Any attempt for manipulation of the lower extremities and back results in severe pain Neuro: Patient is very sedated today. Does arouse. Does complain of significant discomfort - Labs CBC & Chem 7: 12/19/18 07:16 12/19/18 07:16 Labs: Abnormal Lab Results - Last 24 Hours (Table) 12/18/18 12/19/18 12/19/18 Range/Units 22:00 07:16 07:16 WBC 18.0 H (3.8-10.6) k/uL RBC 4.06 L (4.30-5.90) m/uL Hgb 11.0 L (13.0-17.5) gm/dL Hct 35.0 L (39.0-53.0) % RDW 16.2 H (11.5-15.5) % Plt Count 595 H (150-450) k/uL Neutrophils # 14.4 H (1.3-7.7) k/uL Monocytes # 1.3 H (0-1.0) k/uL Chloride 110 H (98-107) mmol/L Carbon Dioxide 19 L (22-30) mmol/L Glucose 130 H (74-99) mg/dL Calcium 11.0 H (8.4-10.2) mg/dL Alkaline Phosphatase 151 H (38-126) U/L Albumin 3.3 L (3.5-5.0) g/dL Urine Protein 1+ H (Negative) Urine Blood Small H (Negative) Ur Leukocyte Esterase Large H (Negative) Urine RBC 18 H (0-5) /hpf Urine WBC >182 H (0-5) /hpf Urine WBC Clumps Many H (None) /hpf Ur Squamous Epith Cells 8 H (0-4) /hpf Urine Bacteria Many H (None) /hpf Hyaline Casts 234 H (0-2) /lpf Urine Mucus Occasional H (None) /hpf Microbiology - Last 24 Hours (Table) 12/17/18 15:00 Blood Culture - Preliminary Blood No Growth after 24 hours 12/17/18 15:04 Blood Culture - Preliminary Blood No Growth after 24 hours Laboratory Results WBC 18.0 k/uL (3.8-10.6) H 12/19/18 07:16 RBC 4.06 m/uL (4.30-5.90) L 12/19/18 07:16 Hgb 11.0 gm/dL (13.0-17.5) L 12/19/18 07:16 Hct 35.0 % (39.0-53.0) L 12/19/18 07:16 MCV 86.3 fL (80.0-100.0) 12/19/18 07:16 MCH 27.2 pg (25.0-35.0) 12/19/18 07:16 MCHC 31.5 g/dL (31.0-37.0) 12/19/18 07:16 RDW 16.2 % (11.5-15.5) H 12/19/18 07:16 Plt Count 595 k/uL (150-450) H 12/19/18 07:16 Neutrophils % 80 % 12/19/18 07:16 Lymphocytes % 11 % 12/19/18 07:16 Monocytes % 7 % 12/19/18 07:16 Eosinophils % 0 % 12/19/18 07:16 Basophils % 0 % 12/19/18 07:16 Neutrophils # 14.4 k/uL (1.3-7.7) H 12/19/18 07:16 Lymphocytes # 2.1 k/uL (1.0-4.8) 12/19/18 07:16 Monocytes # 1.3 k/uL (0-1.0) H 12/19/18 07:16 Eosinophils # 0.0 k/uL (0-0.7) 12/19/18 07:16 Basophils # 0.1 k/uL (0-0.2) 12/19/18 07:16 Hypochromasia Slight 12/19/18 07:16 Anisocytosis Slight 12/19/18 07:16 PT 11.3 sec (9.0-12.0) 12/06/18 15:25 INR 1.1 (<1.2) 12/06/18 15:25 APTT 51.3 sec (22.0-30.0) H 12/11/18 08:43 Sodium 142 mmol/L (137-145) 12/19/18 07:16 Potassium 4.3 mmol/L (3.5-5.1) 12/19/18 07:16 Chloride 110 mmol/L (98-107) H 12/19/18 07:16 Carbon Dioxide 19 mmol/L (22-30) L 12/19/18 07:16 Anion Gap 13 mmol/L 12/19/18 07:16 BUN 19 mg/dL (9-20) 12/19/18 07:16 Creatinine 0.78 mg/dL (0.66-1.25) 12/19/18 07:16 Est GFR (CKD-EPI)AfAm >90 (>60 ml/min/1.73 sqM) 12/19/18 07:16 Est GFR (CKD-EPI)NonAf 84 (>60 ml/min/1.73 sqM) 12/19/18 07:16 Glucose 130 mg/dL (74-99) H 12/19/18 07:16 POC Glucose (mg/dL) 128 mg/dL (75-99) H 12/07/18 17:14 POC Glu Safety Tech YOUNG Loreta Metz 12/07/18 17:[address] Glu mg/dL 131 12/02/18 12:44 Hemoglobin A1c 6.2 % (4.0-6.0) H 12/02/18 12:44 Calcium 11.0 mg/dL (8.4-10.2) H 12/19/18 07:16 Magnesium 1.9 mg/dL (1.6-2.3) 12/09/18 07:23 Total Bilirubin 1.3 mg/dL (0.2-1.3) 12/19/18 07:16 Conjugated Bilirubin 0.0 mg/dL (0.0-0.3) 12/03/18 09:00 Unconjugated Bilirubin 0.5 mg/dL (0.0-1.1) 12/03/18 09:00 Delta Bilirubin 0.2 mg/dL (0.0-0.2) 12/03/18 09:00 AST 40 U/L (17-59) 12/19/18 07:16 ALT 34 U/L (21-72) 12/19/18 07:16 Alkaline Phosphatase 151 U/L (38-126) H 12/19/18 07:16 Total Protein 7.1 g/dL (6.3-8.2) 12/19/18 07:16 Albumin 3.3 g/dL (3.5-5.0) L 12/19/18 07:16 Tumor Marker AFP <2.5 ng/mL (0.0-7.9) 12/03/18 09:00 Free PSA TNP 12/03/18 09:00 % Free PSA TNP 12/03/18 09:00 Total PSA 20.6 ng/mL (<=4.0) H 12/03/18 09:00 PTH Intact 23.2 pg/mL (14.0-72.0) 12/18/18 17:00 Urine Color Yellow 12/18/18 22:00 Urine Appearance Turbid (Clear) 12/18/18 22:00 Urine pH 6.5 (5.0-8.0) 12/18/18 22:00 Ur Specific [place] 1.014 (1.001-1.035) 12/18/18 22:00 Urine Protein 1+ (Negative) H 12/18/18 22:00 Urine Glucose (UA) Negative (Negative) 12/18/18 22:00 Urine Ketones Negative (Negative) 12/18/18 22:00 Urine Blood Small (Negative) H 12/18/18 22:00 Urine Nitrite Positive (Negative) 12/18/18 22:00 Urine Bilirubin Negative (Negative) 12/18/18 22:00 Urine Urobilinogen <2.0 mg/dL (<2.0) 12/18/18 22:00 Ur Leukocyte Esterase Large (Negative) H 12/18/18 22:00 Urine RBC 18 /hpf (0-5) H 12/18/18 22:00 Urine WBC >182 /hpf (0-5) H 12/18/18 22:00 Urine WBC Clumps Many /hpf (None) H 12/18/18 22:00 Ur Squamous Epith Cells 8 /hpf (0-4) H 12/18/18 22:00 Urine Bacteria Many /hpf (None) H 12/18/18 22:00 Hyaline Casts 234 /lpf (0-2) H 12/18/18 22:00 Urine Mucus Occasional /hpf (None) H 12/18/18 22:00 Vancomycin Trough 14.2 ug/mL 12/08/18 05:26 Blood Type O Positive 12/05/18 09:20 Blood Type Confirm O Positive 12/05/18 05:44 Blood Type Recheck CABO Indicated 12/05/18 09:20 Antibody Screen NEGATIVE 12/05/18 09:20 Spec Expiration Date 12/08/2018231912/05/18 09:20 Microbiology 12/17/18 15:00 Blood Blood Culture - Preliminary No Growth after 24 hours 12/17/18 15:04 Blood Blood Culture - Preliminary No Growth after 24 hours 12/05/18 14:16 Other - Other Anaerobic Culture - Final 12/05/18 14:16 Other - Other Gram Stain - Final 12/05/18 14:16 Other - Other Wound Culture - Final Escherichia coli 12/02/18 16:00 Urine,Voided Urine Culture - Final Escherichia coli Assessment and Plan (1) Chronic back pain Current Visit: Yes Status: Acute Code(s): M54.9 - DORSALGIA, UNSPECIFIED; G89.29 - OTHER CHRONIC PAIN SNOMED Code(s): 799938560 (2) Discitis of lumbar region Current Visit: Yes Status: Acute Code(s): M46.46 - DISCITIS, UNSPECIFIED, LUMBAR REGION SNOMED Code(s): 137029666 (3) E. coli urinary tract infection Narrative/Plan: 83-year-old male known to the infectious disease service for his audible bouts of urinary tract infections with multidrug resistant Escherichia coli who now presents to hospital with irretractable back pain. He hashad troubles with back pain in the past and has had workup performed. With the inferior vena cava clot workup then was performed for an underlying malignancy and it does appear that there is evidence of the hepatocellular carcinoma the liver as well as of the prostate carcinoma as noted by the lymph nodes in the pelvis. 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 Patient however now is developed the progressive and severe back pain to the point in time where he is no longer able to ambulate. The MRI reveals evidence of the extensive destruction to L4-L5 with the evidence of fluid in the intervertebral space consistent with infection as well as a small epidural abscess. The patient has been seen by orthopedic spine. The patient has significant physical symptoms and significant other pathology. I agree at this point in time that a surgical intervention would be of great utility in that it would give likely relief of pain by stabilization of the spine. It also give deep tissue cultures and pathology to further evaluate this lesion. With his multiple urinary tract infections it is possible that this could even be an E. coli infection within the space. The possibility of malignancy in this area is not completely excluded the possibility of malignancy and secondary infection is also of concern. Then vancomycin also added at this time pending further information given the evidence of the epidural abscess.Await further culture results and surgical data to further define the overall course of therapy. 12/07/2018 patient's postoperative other than postoperative pain seems to be relatively well. Currently receiving Maxipime and vancomycin. When the culture from the surgical site has come back as complete if no gram-positive organs or from the vancomycin may be discontinued. He will plan on leaving the hospital on intravenous antibiotic therapy likely Merrem is likely more cost effective and Maxipime 12/10/2018 patient is now awake alert oriented to person place and time. Other than pain at the sit e of the L4-L5 infection he is doing well. Confusion is resolved and he is back down to nearly his baseline mental status. A 6 weeks course of antibiotic therapy has discussed with the patient and family and likely would've [facility] to receive his therapy both physical and antibiotics. We'll continue liaison to ensure cost-effective choice. 12/11/2018 patient is showing some improvement but still has severe pain when he is moving from place to place. He however relates that today he had up to the chair in the first bit of time up in the chair was miserable that he was able to fall asleep and his pain has been somewhat improved ever since. 6 weeks of antibiotic therapy to extended care facility is being arranged cefepime appears to be a covered benefit. December 13 2018 patient was having some improvement and had some increased movement which is resulted in some severe pain and spasm to his lower back. With current pain medication acephaly more comfortable. Denies other new acute difficulties. The plan will be to utilize the Maxipime at the extended care facility for the at least 6 week period of time for treatment of the osteomyelitis of the spine and discitis and epidural abscess that have been surgically drained. IV access with PICC line has been placed. 12/19/2018 patient continues to have severe pain. A 6 week course of intravenous antibiotic therapy with Maxipime time has been arranged at the extended care facility when he is medically cleared for discharge. Pain control is certainly a difficulty at this time. Was seen by orthopedic spine and further alteration of his medications have occurred including addition of benzodiazepine and a burst of steroid. It is likely a burst of steroid is cause the increased white blood cell count. Orthopedic spine does not believe further surgical intervention is possible at this time. Current Visit: Yes Status: Acute Code(s): N39.0 - URINARY TRACT INFECTION, SITE NOT SPECIFIED; B96.20 - UNSP ESCHERICHIA COLI THE CAUSE OF DISEASES [facility] SNOMED Code(s): 329439287 (4) Prostate cancer Current Visit: Yes Status: Acute Code(s): C61 - MALIGNANT NEOPLASM OF PROSTATE SNOMED Code(s): 348042880 (5) Hepatocellular carcinoma Current Visit: Yes Status: Acute Priority: High Code(s): C22.0 - LIVER CELL CARCINOMA SNOMED Code(s): 012185115
--- NOTE | 2018-12-19 15:08 | P.PN ---
Subjective This is a pleasant 83 years old male with past medical history of liver cancer presents because of back pain. He is status post laminectomy and decompression of the spinal cord with debridement of epidural abscess at L4-L5, and partial corpectomy of L4 osteomyelitis. Orthopedic team and infectious team are following the patient. Patient is main complaint currently is his postop back pain, which is looks better controlled with Dilaudid and [place]. His pain came down today from 7 down to 4/10. He is not much in distress. No chest pain or dyspnea. No nausea vomiting. He has constipation probably from his pain medication. Wound culture is growing E. coli. Patient currently on vancomycin and cefepime. He was on xarelto, which is switched to heparin drip and need to switched back to xarelto upon discharge. 12/11/18 pt is still has significant pain in his back although it is improving and better controled, no chest pain , no dyspnea , pt on antibiotic as per ID , pt may need picc/midline upon discharge for extending antibiotic therapy for 6 weeks as per ID team 12/12/18 pt is still improving slowly , oncology and orthopedic teams are following the case closely 12/13/2017 pt is more drowsy in the morning however when i saw him he was awake and alert , pt told me he still has significant pain . pt pain medication was increased which might be contributed to his temporary confusion , we will keep monitoring for now and adjusted medication later if confusion recurs, pt will need picc line for possible prolonged IV medication and for better iv access, plan for ECF rehab upon discharge i was off service 12/14-12/16 where pt was covered by another hospitalist 12/17/18 pt is lying in bed comfortable , no chest pain or dyspnea , no abd pain or n/v. he is tolerating diet . he still has some pain in lower back , pt could walk today with the physical therapist the whole corridor. vitals and labs reviewed. no fever, leukocytosis is improving from 13K to 11K. pt has left arm picc line and he will need prolonged cefepime therapy , pt denies any urinary signs or symptoms . pt daughter called [place] and she was updated about the pt condition by both the staff and the orthopedic team . possible discharge in 24/48 hours. pt will need f/u with oncology team upon discharge 12/18/2018 Patient today have significant back pain about 10/10 in severity as per patient starting today. Yesterday patient walked in the hallway with the help of the physical therapist, however patient was refusing to put the brace. Patient was counseled and instructed to put the brace on especially when sitting up or moving as per orthopedics recommendation and now he agrees. Continue more pain medication. Since patient pain was significant, patient will need to send the hospital and we'll keep following up with him. No fever. Slightly tachycardic. Leukocytosis at 12.2 12/19/2018 Patient remains to have significant back pain. He got 1 dose of steroids yesterday and put on volume every 8 hours decrease in his morphine therapy frequency every 3 hours. He has mild increase in WBC count up to 18 K, mostly related to his steroids. 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 Patient is already on Flomax. Also repeat chest x-ray: Pending infectious disease follow- up is appreciated. Orthopedic team R following the case. CONSTITUTIONAL: No fever, no malaise, no fatigue. HEENT: No recent visual problems or hearing problems. Denied any sore throat. CARDIOVASCULAR: No orthopnea, PND, no palpitations, no syncope. PULMONARY: No shortness of breath, no cough, no hemoptysis. GASTROINTESTINAL: No diarrhea, no nausea, no vomiting, no abdominal pain. Normoactive bowel sounds. NEUROLOGICAL: No headaches, no weakness, no numbness. HEMATOLOGICAL: Denies any bleeding or petechiae. GENITOURINARY: Denies any burning micturition, frequency, or urgency. ENDOCRINE: Denies any polyuria or polydipsia. Medication: Tylenol, Tenormin, calcitonin, cefepime, Valium, levothyroxine, milk of magnesia, Robaxin, MS Contin, morphine sulfate IR, Zofran, Protonix, MiraLAX, Xarelto, Senokot, and Flomax. Objective - Vital Signs Vital signs: Vital Signs Temp 98.2 F 12/19/18 12:13 Pulse 107 H 12/19/18 12:13 Resp 18 12/19/18 12:13 BP 150/73 12/19/18 12:13 Pulse Ox 97 12/19/18 12:13 Intake & Output 12/18/18 12/19/18 12/19/18 18:59 06:59 18:59 Intake Total 600 300 Output Total 300 Balance 600 0 Intake: Intake, IV Titration 600 300 Amount 0.9% NaCl with KCl 40 Meq 550 300 /l 1,000 ml @ 75 mls/hr IV .[id number] DIPESH Rx#: [id number] Cefepime 1 gm In Sodium 50 Chloride 0.9% 50 ml @ 100 mls/hr IVPB Q8HR DIPESH Rx# :[id number] Output: Urine 300 Other: Voiding Method Urinal Urinal Urinal Incontinent Incontinent # Voids 3 2 2 # Bowel Movements 1 - Exam GENERAL: The patient is alert and oriented x3, not in any acute distress. Well developed, well nourished. HEENT: Pupils are round and equally reacting to light. EOMI. No scleral icterus. No conjunctival pallor. Normocephalic, atraumatic. No pharyngeal erythema. No thyromegaly. CARDIOVASCULAR: S1 and S2 present. No murmurs, rubs, or gallops. PULMONARY: Chest is clear to auscultation, no wheezing or crackles. ABDOMEN: Soft, nontender, nondistended, normoactive bowel sounds. No palpable organomegaly. -MUSCULOSKELETAL: No joint swelling or deformity. Back exam, patient refused because his painful : deferred to the orthopedic team EXTREMITIES: No cyanosis, clubbing, or pedal edema. NEUROLOGICAL: Gross neurological examination did not reveal any focal deficits. No weakness in the lower extremity SKIN: No rashes. - Labs CBC & Chem 7: 12/19/18 07:16 12/19/18 07:16 Labs: Abnormal Lab Results - Last 24 Hours (Table) 12/18/18 12/19/18 12/19/18 Range/Units 22:00 07:16 07:16 WBC 18.0 H (3.8-10.6) k/uL RBC 4.06 L (4.30-5.90) m/uL Hgb 11.0 L (13.0-17.5) gm/dL Hct 35.0 L (39.0-53.0) % RDW 16.2 H (11.5-15.5) % Plt Count 595 H (150-450) k/uL Neutrophils # 14.4 H (1.3-7.7) k/uL Monocytes # 1.3 H (0-1.0) k/uL Chloride 110 H (98-107) mmol/L Carbon Dioxide 19 L (22-30) mmol/L Glucose 130 H (74-99) mg/dL Calcium 11.0 H (8.4-10.2) mg/dL Alkaline Phosphatase 151 H (38-126) U/L Albumin 3.3 L (3.5-5.0) g/dL Urine Protein 1+ H (Negative) Urine Blood Small H (Negative) Ur Leukocyte Esterase Large H (Negative) Urine RBC 18 H (0-5) /hpf Urine WBC >182 H (0-5) /hpf Urine WBC Clumps Many H (None) /hpf Ur Squamous Epith Cells 8 H (0-4) /hpf Urine Bacteria Many H (None) /hpf Hyaline Casts 234 H (0-2) /lpf Urine Mucus Occasional H (None) /hpf Microbiology - Last 24 Hours (Table) 12/17/18 15:00 Blood Culture - Preliminary Blood No Growth after 24 hours 12/17/18 15:04 Blood Culture - Preliminary Blood No Growth after 24 hours Assessment and Plan Assessment: acute back pain secondary to diskitis and epidural abscess. s/p lamenectomy epidural abscess status post debridement h/o liver cancer with possible metastatic lesion to the spine, however pathology report came back negative for malignancy h/o IVC thrombosis , on xarelto h/o prostate cancer ,PSA stable around low 20s Plan: this is a pleasant 83 yo M who presents with epidural abscess. ID team are following the pt and they are managing the antibiotic . orthopedic following up with pt as well Labs and medication were reviewed.. Continue same treatment. Continue with symptomatic treatment. Resume home medication. Monitor lytes and vitals. DVT and GI prophylaxis. Further recommendations of the clinical course of the patient DVT prophylaxis: heparin GI Prophylaxis: protonix PT/OT: Pending Prognosis is guarded
--- NOTE | 2018-12-19 16:11 | P.PN ---
Progress Note - Text Progress Note Date: 12/19/18 Patient is seen and examined today at bedside. He continues to have severe pain and spasms in his low back. He has had great difficulty with any sort of mobilization due to the pain in his back. He has been trying various pain medications types to see if he can control some of the symptoms but we have had little success thus far. He tried using a brace to some degree. We try giving him a short course of steroid burst last night. This likely accounts for his increase white blood count as well. His exam is essentially unchanged. 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 Prostate cancer The patient is having severe difficulties over overall in terms of his pain control and spasm. Pain primarily seems to stem from his lower back. He had been making some progress for a few days postoperatively but he is worsening now and it may be worthwhile to obtain further imaging with a repeat MRI if he is able tolerate it. If he is not able tolerate we could consider repeat computed tomography scan of his lumbar spine for further evaluation. If he is not able to tolerate spasms it is likely worsen due to some relative instability at L4 5 motion segment. We could consider stabilization of his lumbar spine with minimally invasive approach to see if effective some relief of his severe low back pain given the relative instability at L4 5. I like to discuss this further with his family as he is a somewhat poor surgical candidate given his multiple medical issues and advanced age. Certainly further surgery would be a significant risk for him , but if we cannot control his pain then surgery may help to do so with some stability at his lumbar spine. We will discuss this further with the family.
--- NOTE | 2018-12-19 17:07 | XR ---
EXAMINATION TYPE: XR chest 1V portable DATE OF EXAM: 12/19/2018 COMPARISON: 10/19/2018 HISTORY: Leukocytosis TECHNIQUE: Single frontal view of the chest is obtained. FINDINGS: There is no heart failure nor confluent pneumonic infiltrate. Costophrenic angles are zhang r. Heart size is normal. Bony thorax is intact. IMPRESSION: No active cardiopulmonary disease. There is clearing of small left pleural effusion comp ared to old exam.
[2018-12-19] MEDS: RIVAROXABAN 20 MG TAB PO SCH (17:53)
--- NOTE | 2018-12-19 19:19 | P.PN ---
Subjective Progress Note Date: 12/19/18 Principal diagnosis: Osteomylitis. New diagnoses of Prostate and HCC Pt seen in f/u, he is sleeping heavily, had a "rough day" yesterday per at bedside. Pt woke briefly to loud voice and shaking, denied pain Objective - Vital Signs Vital signs: Vital Signs Temp 98.2 F 12/19/18 12:13 Pulse 107 H 12/19/18 12:13 Resp 18 12/19/18 12:13 BP 150/73 12/19/18 12:13 Pulse Ox 97 12/19/18 12:13 Intake & Output 12/19/18 12/19/18 12/20/18 06:59 18:59 06:59 Intake Total 300 Output Total 300 98 Balance 0 -98 Intake: Intake, IV Titration 300 Amount 0.9% NaCl with KCl 40 Meq 300 /l 1,000 ml @ 75 mls/hr IV .[id number] DIPESH Rx#: [id number] Output: Urine 300 Post Void Residual 98 Other: Voiding Method Urinal Urinal Incontinent Incontinent # Voids 2 2 # Bowel Movements 1 - Exam Sleeping, snoring, NAD, respirations even and unlabored - Respiratory Respiratory: bilateral: CTA - Cardiovascular Heart sounds: normal: S1, S2 Abnormal Heart Sounds: Absent: systolic murmur, diastolic murmur, rub, S3 Gallop , S4 Gallop, click, other - Peripheral edema leg Peripheral Edema: bilateral: None - Gastrointestinal General gastrointestinal: Present: soft - Integumentary Integumentary: Present: pale - Labs CBC & Chem 7: 12/19/18 07:16 12/19/18 07:16 Labs: Abnormal Lab Results - Last 24 Hours (Table) 12/18/18 12/19/18 12/19/18 Range/Units 22:00 07:16 07:16 WBC 18.0 H (3.8-10.6) k/uL RBC 4.06 L (4.30-5.90) m/uL Hgb 11.0 L (13.0-17.5) gm/dL Hct 35.0 L (39.0-53.0) % RDW 16.2 H (11.5-15.5) % Plt Count 595 H (150-450) k/uL Neutrophils # 14.4 H (1.3-7.7) k/uL Monocytes # 1.3 H (0-1.0) k/uL Chloride 110 H (98-107) mmol/L Carbon Dioxide 19 L (22-30) mmol/L Glucose 130 H (74-99) mg/dL Calcium 11.0 H (8.4-10.2) mg/dL Alkaline Phosphatase 151 H (38-126) U/L Albumin 3.3 L (3.5-5.0) g/dL Urine Protein 1+ H (Negative) Urine Blood Small H (Negative) Ur Leukocyte Esterase Large H (Negative) Urine RBC 18 H (0-5) /hpf Urine WBC >182 H (0-5) /hpf Urine WBC Clumps Many H (None) /hpf Ur Squamous Epith Cells 8 H (0-4) /hpf Urine Bacteria Many H (None) /hpf Hyaline Casts 234 H (0-2) /lpf Urine Mucus Occasional H (None) /hpf Microbiology - Last 24 Hours (Table) 12/17/18 15:00 Blood Culture - Preliminary Blood No Growth after 48 hours 12/17/18 15:04 Blood Culture - Preliminary Blood No Growth after 48 hours Assessment and Plan (1) Hepatocellular carcinoma Narrative/Plan: Limited disease in the liver. Plan is to refer for eval and suspect treatment with chemo-embolization if possible. Current Visit: Yes Status: Acute Priority: High Code(s): C22.0 - LIVER CELL CARCINOMA SNOMED Code(s): 152206319 (2) Prostate cancer Narrative/Plan: Monthly dose of Lupron given 12/18. Most recent PSA was 20.6 Current Visit: Yes Status: Acute Priority: High Code(s): C61 - MALIGNANT NEOPLASM OF PROSTATE SNOMED Code(s): 723533746 (3) Hypercalcemia Narrative/Plan: This has been being monitored, cont to increase, up to 11 today. Multiple contributing factors (malignancy, Hx of parathyroid dysfunction, recent surgery , infection and immobility) Discussed with Pharmacist. 4 doses of calcitonin ordered, Ca++ daily, may need to add vit D. Current Visit: Yes Status: Acute Priority: High Code(s): E83.52 - HYPERCALCEMIA SNOMED Code(s): 11300241 Plan: Discussed case riefly with ID Orthopedic interventions for pain, significantly improved pt pain
[2018-12-19] MEDS: CALCITONIN INJ 200 UNIT/ML (MDV) VIAL IM SCH (22:32)
[2018-12-20] MEDS: MORPHINE SULFATE ER 15 MG TABLET PO SCH ×3 (03:42→22:51)
[2018-12-20] MEDS: MORPHINE SULFATE IR 15 MG TABLET PO PRN ×3 (04:13→19:05)
[2018-12-20] MEDS: LEVOTHYROXINE 100 MCG TAB PO SCH (05:45)
[2018-12-20] MEDS: DIAZEPAM 5 MG TAB PO PRN (05:57)
[2018-12-20 09:28] LABS: ALT 36 U/L (21-72); AST 41 U/L (17-59); Alkaline Phosphatase 143 U/L (38-126); Anion Gap 10 mmol/L; Blood Urea Nitrogen 13 mg/dL (9-20); Calcium 9.6 mg/dL (8.4-10.2); Carbon Dioxide 21 mmol/L (22-30); Chloride 109 mmol/L (98-107); Glucose 128 mg/dL (74-99); Potassium 4.2 mmol/L (3.5-5.1); Sodium 140 mmol/L (137-145); Total Bilirubin 0.6 mg/dL (0.2-1.3); Total Protein 6.5 g/dL (6.3-8.2)
[2018-12-20] MEDS: PANTOPRAZOLE 40 MG TABLET PO SCH (09:31)
[2018-12-20] MEDS: CEFEPIME 1 GM in SODIUM CHLORIDE 0.9% 50 ML IVPB SCH ×2 (09:32→16:11)
[2018-12-20] MEDS: SENNOSIDES-DOCUSATE SODIUM 1 EACH TAB PO SCH ×2 (09:32→22:50)
[2018-12-20] MEDS: ATENOLOL 25 MG TAB PO SCH (09:32)
[2018-12-20 09:34] LABS: Anisocytosis Slight; Basophils # (A) 0.1 k/uL (0-0.2); Basophils % (A) 0 %; Eosinophils # (A) 0.1 k/uL (0-0.7); Eosinophils % (A) 0 %; HCT 35.9 % (39.0-53.0); HGB 11.1 gm/dL (13.0-17.5); Hypochromasia Slight; Lymphocytes # (A) 1.6 k/uL (1.0-4.8); Lymphocytes % (A) 10 %; MCH 27.1 pg (25.0-35.0); MCHC 30.9 g/dL (31.0-37.0); MCV 87.8 fL (80.0-100.0); Mean Platelet Volume 6.4; Monocytes # (A) 1.1 k/uL (0-1.0); Monocytes % (A) 7 %; Neutrophils # (A) 12.9 k/uL (1.3-7.7); Neutrophils % (A) 81 %; Platelet Count 509 k/uL (150-450); RBC 4.08 m/uL (4.30-5.90); RDW 16.3 % (11.5-15.5); WBC 15.9 k/uL (3.8-10.6)
[2018-12-20] MEDS: TAMSULOSIN 0.4 MG CAP.ER.24H PO SCH (09:35)
[2018-12-20] MEDS: METHOCARBAMOL 500 MG TAB PO SCH ×3 (09:35→23:00)
[2018-12-20] MEDS: POLYETHYLENE GLYCOL 3350 17 GM POWD.PACK PO SCH ×2 (09:37→22:55)
[2018-12-20] MEDS: CALCITONIN INJ 200 UNIT/ML (MDV) VIAL IM SCH ×2 (09:38→22:50)
[2018-12-20] MEDS: 0.9% NACL WITH KCL 40 MEQ/L 1,000 ML IV SCH (09:51)
--- NOTE | 2018-12-20 13:33 | P.PN ---
Subjective Progress Note Date: 12/20/18 Very pleasant 83-year-old male is known to the infectious disease service because of his many bouts of very tract infection. The patient has a long-standing history of a very large prostate with difficulties with some urinary retention resulting urinary tract infection. Recent infection has been with E. coli with no oral options and is receiving a couple of courses of outpatient intravenous antibiotic therapy and has done well. In September he was hospitalized with some back pain evaluations were performed showing evidence of degenerative disease and with local care and treatment of urinary infection he improved. 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 Percutaneous biopsy at this facility was performed and was nondiagnostic. He was seen at [facility] also with nondiagnostic testing. He eventually was seen at [facility] where biopsy was successful of the liver which reveal evidence of adenocarcinoma , and there is also evidence of enlarged lymph nodes in the pelvis which were diagnostic of prostate carcinoma. The patient was receiving anticoagulation therapy and was in the midst of workup for his underlying cancers, outpatient PET scan had just been performed. If this workup was occurring the patient was having increasing amounts of back pain on the day of admission was no longer able to ambulate because his pain was so severe. This lady was brought into the hospital and workup has been initiated and he has now been seen by orthopedic spine in the infectious diseases consultation was initiated. The patient is now had the follow-up MRI reveals evidence of the destruction of L4-L5 which is new compared to the September 2018 MRI. With concerns to discitis and epidural abscess the consult was requested. 12/07/2018 patient has significant pain of the LS-spine from the recent surgery. He however is not having fevers or chills. Nursing relates he ate his lunch. But is having some confusion. 12/10/2018 patient is now awake alert oriented to person place and time aware of his very vivid hallucinations. Pain control good control at this time. He has been getting up with physical therapy. the pathology is reviewed with the family no evidence of malignancy, only infection including osteomyelitis. 12/11/2018 patient is feeling somewhat better today. Pain is better controlled at times. Working toward his transfer to the extended care facility to complete his course of intravenous antibiotic therapy. Have discussed the therapy with the liaison and fortunately Maxipime is an option for treatment for his somewhat resistant Escherichia coli. 12/13/2018 patient has had some difficulty with severe pain after some sitting up activities. He received a large amount of narcotics and is somewhat sedated relates being awoken that his pain is better controlled this evening. No other new complaints are related 12/19/2018 patient remains quite miserable due to his back pain. Has been seen by orthopedic spine. Ulceration medication this occurred including a dose of Solu-Medrol to try to improve his swelling and pain. Patient is still quite uncomfortable this morning. No further fever or chills are noted. Her blood cell increase to 18. Gen. 2018 patient is considerably improved today. Pain control is now excellent. Actually laying stone but he has no complaints of pain. He is much more awake and alert and much less sedated today. Await therapy to determine if he is able to sit up and stand today. Objective - Vital Signs Vital signs: Vital Signs Temp 97.9 F 12/20/18 12:00 Pulse 89 12/20/18 12:00 Resp 17 12/20/18 12:00 BP 170/84 12/20/18 12:00 Pulse Ox 97 12/20/18 12:00 Intake & Output 12/19/18 12/20/18 12/20/18 18:59 06:59 18:59 Output Total 98 Balance -98 Output: Post Void Residual 98 Other: Voiding Method Urinal Urinal Urinal Incontinent Incontinent Incontinent # Voids 2 5 # Bowel Movements 1 2 - Exam Pleasant 83-year-old male with pain medications is able to speak but is having severe pain postoperative HEENT: Anicteric conjunctiva are pink and moist nasal mucosa grossly intact without significant lesions, there is no thrush. Neck: The neck is supple without significant lymphadenopathy or thyromegaly. Lungs: Good bilateral air entry without significant crackles or wheezing. There is no significant bronchial sounds. There is no egophony or dullness. Heart: Regular rate and rhythm with an audible S1-S2, no S3 no S4. There is no significant murmur click or rub, PMI was nondisplaced. Abdomen: Minimally obese Positive bowel sounds soft and nontender without palpable masses or organomegaly. There was no guarding or rebound. Extremities: The upper extremities have excellent pulses they are symmetric, no significant petechiae or telangiectasia. No splinter hemorrhages were noted. Lower extremities without edema. Any attempt for manipulation of the lower extremities and back results in severe pain Neuro: Patient is now awake and alert following commands and is conversational. Pain is under good control. - Labs CBC & Chem 7: 12/20/18 08:34 12/20/18 08:34 Labs: Abnormal Lab Results - Last 24 Hours (Table) 12/20/18 12/20/18 Range/Units 08:34 08:34 WBC 15.9 H (3.8-10.6) k/uL RBC 4.08 L (4.30-5.90) m/uL Hgb 11.1 L (13.0-17.5) gm/dL Hct 35.9 L (39.0-53.0) % MCHC 30.9 L (31.0-37.0) g/dL RDW 16.3 H (11.5-15.5) % Plt Count 509 H (150-450) k/uL Neutrophils # 12.9 H (1.3-7.7) k/uL Monocytes # 1.1 H (0-1.0) k/uL Chloride 109 H (98-107) mmol/L Carbon Dioxide 21 L (22-30) mmol/L Creatinine 0.53 L (0.66-1.25) mg/dL Glucose 128 H (74-99) mg/dL Alkaline Phosphatase 143 H (38-126) U/L Albumin 3.0 L (3.5-5.0) g/dL Microbiology - Last 24 Hours (Table) 12/19/18 19:10 Urine Culture - Preliminary Urine,Voided 12/17/18 15:00 Blood Culture - Preliminary Blood No Growth after 48 hours 12/17/18 15:04 Blood Culture - Preliminary Blood No Growth after 48 hours Laboratory Results WBC 15.9 k/uL (3.8-10.6) H 12/20/18 08:34 RBC 4.08 m/uL (4.30-5.90) L 12/20/18 08:34 Hgb 11.1 gm/dL (13.0-17.5) L 12/20/18 08:34 Hct 35.9 % (39.0-53.0) L 12/20/18 08:34 MCV 87.8 fL (80.0-100.0) 12/20/18 08:34 MCH 27.1 pg (25.0-35.0) 12/20/18 08:34 MCHC 30.9 g/dL (31.0-37.0) L 12/20/18 08:34 RDW 16.3 % (11.5-15.5) H 12/20/18 08:34 Plt Count 509 k/uL (150-450) H 12/20/18 08:34 Neutrophils % 81 % 12/20/18 08:34 Lymphocytes % 10 % 12/20/18 08:34 Monocytes % 7 % 12/20/18 08:34 Eosinophils % 0 % 12/20/18 08:34 Basophils % 0 % 12/20/18 08:34 Neutrophils # 12.9 k/uL (1.3-7.7) H 12/20/18 08:34 Lymphocytes # 1.6 k/uL (1.0-4.8) 12/20/18 08:34 Monocytes # 1.1 k/uL (0-1.0) H 12/20/18 08:34 Eosinophils # 0.1 k/uL (0-0.7) 12/20/18 08:34 Basophils # 0.1 k/uL (0-0.2) 12/20/18 08:34 Hypochromasia Slight 12/20/18 08:34 Anisocytosis Slight 12/20/18 08:34 PT 11.3 sec (9.0-12.0) 12/06/18 15:25 INR 1.1 (<1.2) 12/06/18 15:25 APTT 51.3 sec (22.0-30.0) H 12/11/18 08:43 Sodium 140 mmol/L (137-145) 12/20/18 08:34 Potassium 4.2 mmol/L (3.5-5.1) 12/20/18 08:34 Chloride 109 mmol/L (98-107) H 12/20/18 08:34 Carbon Dioxide 21 mmol/L (22-30) L 12/20/18 08:34 Anion Gap 10 mmol/L 12/20/18 08:34 BUN 13 mg/dL (9-20) 12/20/18 08:34 Creatinine 0.53 mg/dL (0.66-1.25) L 12/20/18 08:34 Est GFR (CKD-EPI)AfAm >90 (>60 ml/min/1.73 sqM) 12/20/18 08:34 Est GFR (CKD-EPI)NonAf >90 (>60 ml/min/1.73 sqM) 12/20/18 08:34 Glucose 128 mg/dL (74-99) H 12/20/18 08:34 POC Glucose (mg/dL) 128 mg/dL (75-99) H 12/07/18 17:14 POC Glu Organ Builder Loreta Shah 12/07/18 17:[address] Glu mg/dL 131 12/02/18 12:44 Hemoglobin A1c 6.2 % (4.0-6.0) H 12/02/18 12:44 Calcium 9.6 mg/dL (8.4-10.2) 12/20/18 08:34 Magnesium 1.9 mg/dL (1.6-2.3) 12/09/18 07:23 Total Bilirubin 0.6 mg/dL (0.2-1.3) 12/20/18 08:34 Conjugated Bilirubin 0.0 mg/dL (0.0-0.3) 12/03/18 09:00 Unconjugated Bilirubin 0.5 mg/dL (0.0-1.1) 12/03/18 09:00 Delta Bilirubin 0.2 mg/dL (0.0-0.2) 12/03/18 09:00 AST 41 U/L (17-59) 12/20/18 08:34 ALT 36 U/L (21-72) 12/20/18 08:34 Alkaline Phosphatase 143 U/L (38-126) H 12/20/18 08:34 Total Protein 6.5 g/dL (6.3-8.2) 12/20/18 08:34 Albumin 3.0 g/dL (3.5-5.0) L 12/20/18 08:34 Tumor Marker AFP <2.5 ng/mL (0.0-7.9) 12/03/18 09:00 Free PSA TNP 12/03/18 09:00 % Free PSA TNP 12/03/18 09:00 Total PSA 20.6 ng/mL (<=4.0) H 12/03/18 09:00 PTH Intact 23.2 pg/mL (14.0-72.0) 12/18/18 17:00 Urine Color Yellow 12/18/18 22:00 Urine Appearance Turbid (Clear) 12/18/18 22:00 Urine pH 6.5 (5.0-8.0) 12/18/18 22:00 Ur Specific [place] 1.014 (1.001-1.035) 12/18/18 22:00 Urine Protein 1+ (Negative) H 12/18/18 22:00 Urine Glucose (UA) Negative (Negative) 12/18/18 22:00 Urine Ketones Negative (Negative) 12/18/18 22:00 Urine Blood Small (Negative) H 12/18/18 22:00 Urine Nitrite Positive (Negative) 12/18/18 22:00 Urine Bilirubin Negative (Negative) 12/18/18 22:00 Urine Urobilinogen <2.0 mg/dL (<2.0) 12/18/18 22:00 Ur Leukocyte Esterase Large (Negative) H 12/18/18 22:00 Urine RBC 18 /hpf (0-5) H 12/18/18 22:00 Urine WBC >182 /hpf (0-5) H 12/18/18 22:00 Urine WBC Clumps Many /hpf (None) H 12/18/18 22:00 Ur Squamous Epith Cells 8 /hpf (0-4) H 12/18/18 22:00 Urine Bacteria Many /hpf (None) H 12/18/18 22:00 Hyaline Casts 234 /lpf (0-2) H 12/18/18 22:00 Urine Mucus Occasional /hpf (None) H 12/18/18 22:00 Vancomycin Trough 14.2 ug/mL 12/08/18 05:26 Blood Type O Positive 12/05/18 09:20 Blood Type Confirm O Positive 12/05/18 05:44 Blood Type Recheck CABO Indicated 12/05/18 09:20 Antibody Screen NEGATIVE 12/05/18 09:20 Spec Expiration Date 12/08/2018 - 1030 12/05/18 09:20 Microbiology 12/19/18 19:10 Urine,Voided Urine Culture - Preliminary 12/17/18 15:00 Blood Blood Culture - Preliminary No Growth after 48 hours 12/17/18 15:04 Blood Blood Culture - Preliminary No Growth after 48 hours 12/05/18 14:16 Other - Other Anaerobic Culture - Final 12/05/18 14:16 Other - Other Gram Stain - Final 12/05/18 14:16 Other - Other Wound Culture - Final Escherichia coli 12/02/18 16:00 Urine,Voided Urine Culture - Final Escherichia coli Assessment and Plan (1) Chronic back pain Current Visit: Yes Status: Acute Code(s): M54.9 - DORSALGIA, UNSPECIFIED; G89.29 - OTHER CHRONIC PAIN SNOMED Code(s): 937071408 (2) Discitis of lumbar region Current Visit: Yes Status: Acute Code(s): M46.46 - DISCITIS, UNSPECIFIED, LUMBAR REGION SNOMED Code(s): 249614096 (3) E. coli urinary tract infection Narrative/Plan: 83-year-old male known to the infectious disease service for his audible bouts of urinary tract infections with multidrug resistant Escherichia coli who now presents to hospital with irretractable back pain. He hashad troubles with back pain in the past and has had workup performed. With the inferior vena cava clot workup then was performed for an underlying malignancy and it does appear that there is evidence of the hepatocellular carcinoma the liver as well as of the prostate carcinoma as noted by the lymph nodes in the pelvis. 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 Patient however now is developed the progressive and severe back pain to the point in time where he is no longer able to ambulate. The MRI reveals evidence of the extensive destruction to L4-L5 with the evidence of fluid in the intervertebral space consistent with infection as well as a small epidural abscess. The patient has been seen by orthopedic spine. The patient has significant physical symptoms and significant other pathology. I agree at this point in time that a surgical intervention would be of great utility in that it would give likely relief of pain by stabilization of the spine. It also give deep tissue cultures and pathology to further evaluate this lesion. With his multiple urinary tract infections it is possible that this could even be an E. coli infection within the space. The possibility of malignancy in this area is not completely excluded the possibility of malignancy and secondary infection is also of concern. Then vancomycin also added at this time pending further information given the evidence of the epidural abscess.Await further culture results and surgical data to further define the overall course of therapy. 12/07/2018 patient's postoperative other than postoperative pain seems to be relatively well. Currently receiving Maxipime and vancomycin. When the culture from the surgical site has come back as complete if no gram-positive organs or from the vancomycin may be discontinued. He will plan on leaving the hospital on intravenous antibiotic therapy likely Merrem is likely more cost effective and Maxipime 12/10/2018 patient is now awake alert oriented to person place and time. Other than pain at the sit e of the L4-L5 infection he is doing well. Confusion is resolved and he is back down to nearly his baseline mental status. A 6 weeks course of antibiotic therapy has discussed with the patient and family and likely would've [facility] to receive his therapy both physical and antibiotics. We'll continue liaison to ensure cost-effective choice. 12/11/2018 patient is showing some improvement but still has severe pain when he is moving from place to place. He however relates that today he had up to the chair in the first bit of time up in the chair was miserable that he was able to fall asleep and his pain has been somewhat improved ever since. 6 weeks of antibiotic therapy to extended care facility is being arranged cefepime appears to be a covered benefit. December 13 2018 patient was having some improvement and had some increased movement which is resulted in some severe pain and spasm to his lower back. With current pain medication acephaly more comfortable. Denies other new acute difficulties. The plan will be to utilize the Maxipime at the extended care facility for the at least 6 week period of time for treatment of the osteomyelitis of the spine and discitis and epidural abscess that have been surgically drained. IV access with PICC line has been placed. 12/19/2018 patient continues to have severe pain. A 6 week course of intravenous antibiotic therapy with Maxipime time has been arranged at the extended care facility when he is medically cleared for discharge. Pain control is certainly a difficulty at this time. Was seen by orthopedic spine and further alteration of his medications have occurred including addition of benzodiazepine and a burst of steroid. It is likely a burst of steroid is cause the increased white blood cell count. Orthopedic spine does not believe further surgical intervention is possible at this time. 12/20/2018 patient is improved as far as his pain. We are working with the team to arrange his 6 weeks of outpatient intravenous antibiotic therapy with Maxipime for the somewhat drug-resistant E. coli that was found in his spine is etiology of his discitis, osteomyelitis and epidural abscess. Therapy will work with him today to try to improve his activity level. Current Visit: Yes Status: Acute Code(s): N39.0 - URINARY TRACT INFECTION, SITE NOT SPECIFIED; B96.20 - UNSP ESCHERICHIA COLI THE CAUSE OF DISEASES [facility]SD [facility] SNOMED Code(s): 782522962 (4) Prostate cancer Current Visit: Yes Status: Acute Code(s): C61 - MALIGNANT NEOPLASM OF PROSTATE SNOMED Code(s): 669129677 (5) Hepatocellular carcinoma Current Visit: Yes Status: Acute Priority: High Code(s): C22.0 - LIVER CELL CARCINOMA SNOMED Code(s): 625637852
--- NOTE | 2018-12-20 17:51 | P.PN ---
Subjective Progress Note Date: 12/20/18 Principal diagnosis: Osteomylitis. New diagnoses of Prostate and HCC Pt is alert today. He is smiling, family is at bedside. He cannot move or it hurts his low back, into the hip. Denies fever, vomiting, he has been eating, no but is SOB with any activity, had a BM today Objective - Vital Signs Vital signs: Vital Signs Temp 97.9 F 12/20/18 12:00 Pulse 89 12/20/18 12:00 Resp 17 12/20/18 12:00 BP 170/84 12/20/18 12:00 Pulse Ox 97 12/20/18 12:00 Intake & Output 12/19/18 12/20/18 12/20/18 18:59 06:59 18:59 Intake Total 600 Output Total 98 Balance -98 600 Intake: Intake, IV Titration 600 Amount 0.9% NaCl with KCl 40 Meq 600 /l 1,000 ml @ 75 mls/hr IV .[id number] DIPESH Rx#: [id number] Output: Post Void Residual 98 Other: Voiding Method Urinal Urinal Urinal Incontinent Incontinent Incontinent # Voids 2 5 # Bowel Movements 1 2 - Constitutional General appearance: Present: cooperative, no acute distress, thin - EENT Eyes: Present: anicteric sclerae, EOMI ENT: Present: hearing grossly normal - Respiratory Respiratory: bilateral: CTA - Cardiovascular Heart sounds: normal: S1, S2 - Peripheral edema leg Peripheral Edema: bilateral: None - Gastrointestinal Localized gastrointestinal: tender: LLQ (severe, warm to touch in the flank, no vascular prominence, not dusky) - Integumentary Integumentary: Present: pale - Neurologic Neurologic: Present: CNII-XII intact - Musculoskeletal Musculoskeletal: Present: generalized weakness - Psychiatric Psychiatric: Present: A&O x's 3, appropriate affect, intact judgment & insight - Labs CBC & Chem 7: 12/20/18 08:34 12/20/18 08:34 Labs: Abnormal Lab Results - Last 24 Hours (Table) 12/20/18 12/20/18 Range/Units 08:34 08:34 WBC 15.9 H (3.8-10.6) k/uL RBC 4.08 L (4.30-5.90) m/uL Hgb 11.1 L (13.0-17.5) gm/dL Hct 35.9 L (39.0-53.0) % MCHC 30.9 L (31.0-37.0) g/dL RDW 16.3 H (11.5-15.5) % Plt Count 509 H (150-450) k/uL Neutrophils # 12.9 H (1.3-7.7) k/uL Monocytes # 1.1 H (0-1.0) k/uL Chloride 109 H (98-107) mmol/L Carbon Dioxide 21 L (22-30) mmol/L Creatinine 0.53 L (0.66-1.25) mg/dL Glucose 128 H (74-99) mg/dL Alkaline Phosphatase 143 H (38-126) U/L Albumin 3.0 L (3.5-5.0) g/dL Microbiology - Last 24 Hours (Table) 12/17/18 15:00 Blood Culture - Preliminary Blood No Growth after 72 hours 12/17/18 15:04 Blood Culture - Preliminary Blood No Growth after 72 hours 12/19/18 19:10 Urine Culture - Preliminary Urine,Voided Assessment and Plan (1) Hepatocellular carcinoma Narrative/Plan: Limited disease in the liver. Plan is to refer for eval and suspect treatment with chemo-embolization if possible. Current Visit: Yes Status: Acute Priority: High Code(s): C22.0 - LIVER CELL CARCINOMA SNOMED Code(s): 371086315 (2) Prostate cancer Narrative/Plan: Monthly dose of Lupron given 12/18. Most recent PSA was 20.6 Current Visit: Yes Status: Acute Priority: High Code(s): C61 - MALIGNANT NEOPLASM OF PROSTATE SNOMED Code(s): 440355045 (3) Hypercalcemia Narrative/Plan: Calcitonin treatment started. Calcium level down to 9.4 today. Current Visit: Yes Status: Acute Priority: High Code(s): E83.52 - HYPERCALCEMIA SNOMED Code(s): 61499732 (4) Left lower quadrant pain Narrative/Plan: Patient had unrealistic response to palpation of the abdomen, more specifically the left lower quadrant. Not certain if patient can tolerate an ultrasound as he could not handle even mild palpation. CT has been requested Current Visit: Yes Status: Acute Priority: High Code(s): R10.32 - LEFT LOWER QUADRANT PAIN SNOMED Code(s): 308568907
[2018-12-20] MEDS: RIVAROXABAN 20 MG TAB PO SCH (17:55)
[2018-12-20] MEDS: IOPAMIDOL-300 CONTRAST 30 ML VIAL (ORAL USE) PO PRN ×2 (17:55→19:03)
--- NOTE | 2018-12-20 20:27 | CT ---
EXAMINATION TYPE: CT abdomen pelvis w con DATE OF EXAM: 12/20/2018 COMPARISON: None HISTORY: Abdominal pain CT DLP: 832.9 mGycm Automated exposure control for dose reduction was used. TECHNIQUE: Helical acquisition of images was performed from the lung bases through the pelvis. CONTRAST: Performed with Oral Contrast and with IV Contrast, patient injected with 100 mL of Isovue 300. FINDINGS: Lung bases are clear. There is no pleural effusion. Heart size is normal. There is no pericardial eff usion. There is a small hiatal hernia. Gallbladder appears normal. Spleen appears normal. There is no pancreatic mass. There are multiple pancreatic calcifications consistent with old inflammatory disea se. The bile ducts are not dilated. There are a few cysts in the liver that measure up to 2 cm. There is a 6 cm mixed density mass in the superior posterior right lobe of the liver consistent with tumor . There is 12 mm periportal lymph node. There is no adrenal mass. There is 1 cm cortical cyst medial left kidney. There is no hydronephrosis. There is one semiupright cortical cyst posterior left kidney. Ureters are not dilated. There is no r etroperitoneal adenopathy. Bladder distends smoothly. There is markedly enlarged prostate that measur es 8.5 cm. There is mild perirectal fat stranding. There is minimal fluid in the left paracolic gutte r. I see no evidence of a bowel obstruction. There is mild thickening of the wall of the rectum. Smal l bowel appears normal without wall thickening. There is no mesenteric edema. There is no sign of carole e air. There is destructive changes on both sides of the L4-5 disc. There is severe spinal stenosis at L4-5 with epidural mass anteriorly consistent with epidural abscess. There is mild spinal stenosis at L3-4. There is mild spinal stenosis at L1-2. IMPRESSION: COMPARED TO LAST EXAM THERE IS DEVELOPMENT OF NEW RECTAL WALL THICKENING CONSISTENT WITH NONSPECIFIC COLITIS. NO CHANGE IN THE CHANGES OF DISCITIS AT L4-5 WITH EPIDURAL ABSCESS. TUMOR IS NOT EXCLUDED. POORLY MARGINATED MIXED DENSITY LIVER MASS CONSISTENT WITH TUMOR UNCHANGED.
[2018-12-21] MEDS: CEFEPIME 1 GM in SODIUM CHLORIDE 0.9% 50 ML IVPB SCH ×4 (00:17→23:54)
[2018-12-21] MEDS: 0.9% NACL WITH KCL 40 MEQ/L 1,000 ML IV SCH ×3 (00:17→23:54)
[2018-12-21] MEDS: LEVOTHYROXINE 100 MCG TAB PO SCH (06:25)
[2018-12-21] MEDS: MORPHINE SULFATE ER 15 MG TABLET PO SCH ×2 (09:39→21:10)
[2018-12-21] MEDS: ATENOLOL 25 MG TAB PO SCH (09:43)
[2018-12-21] MEDS: METHOCARBAMOL 500 MG TAB PO SCH ×3 (09:43→22:06)
[2018-12-21] MEDS: PANTOPRAZOLE 40 MG TABLET PO SCH (09:43)
[2018-12-21] MEDS: RIVAROXABAN 20 MG TAB PO SCH (09:43)
[2018-12-21] MEDS: TAMSULOSIN 0.4 MG CAP.ER.24H PO SCH (09:43)
[2018-12-21] MEDS: POLYETHYLENE GLYCOL 3350 17 GM POWD.PACK PO SCH ×2 (09:46→21:07)
[2018-12-21] MEDS: SENNOSIDES-DOCUSATE SODIUM 1 EACH TAB PO SCH ×2 (09:46→21:08)
--- NOTE | 2018-12-21 09:52 | P.PN ---
Subjective This is a pleasant 83 years old male with past medical history of liver cancer presents because of back pain. He is status post laminectomy and decompression of the spinal cord with debridement of epidural abscess at L4-L5, and partial corpectomy of L4 osteomyelitis. Orthopedic team and infectious team are following the patient. Patient is main complaint currently is his postop back pain, which is looks better controlled with Dilaudid and [place]. His pain came down today from 7 down to 4/10. He is not much in distress. No chest pain or dyspnea. No nausea vomiting. He has constipation probably from his pain medication. Wound culture is growing E. coli. Patient currently on vancomycin and cefepime. He was on xarelto, which is switched to heparin drip and need to switched back to xarelto upon discharge. 12/11/18 pt is still has significant pain in his back although it is improving and better controled, no chest pain , no dyspnea , pt on antibiotic as per ID , pt may need picc/midline upon discharge for extending antibiotic therapy for 6 weeks as per ID team 12/12/18 pt is still improving slowly , oncology and orthopedic teams are following the case closely 12/13/2017 pt is more drowsy in the morning however when i saw him he was awake and alert , pt told me he still has significant pain . pt pain medication was increased which might be contributed to his temporary confusion , we will keep monitoring for now and adjusted medication later if confusion recurs, pt will need picc line for possible prolonged IV medication and for better iv access, plan for ECF rehab upon discharge i was off service 12/14-12/16 where pt was covered by another hospitalist 12/17/18 pt is lying in bed comfortable , no chest pain or dyspnea , no abd pain or n/v. he is tolerating diet . he still has some pain in lower back , pt could walk today with the physical therapist the whole corridor. vitals and labs reviewed. no fever, leukocytosis is improving from 13K to 11K. pt has left arm picc line and he will need prolonged cefepime therapy , pt denies any urinary signs or symptoms . pt daughter called from out [place] and she was updated about the pt condition by both the staff and the orthopedic team . possible discharge in 24/48 hours. pt will need f/u with oncology team upon discharge 12/18/2018 Patient today have significant back pain about 10/10 in severity as per patient starting today. Yesterday patient walked in the hallway with the help of the physical therapist, however patient was refusing to put the brace. Patient was counseled and instructed to put the brace on especially when sitting up or moving as per orthopedics recommendation and now he agrees. Continue more pain medication. Since patient pain was significant, patient will need to send the hospital and we'll keep following up with him. No fever. Slightly tachycardic. Leukocytosis at 12.2 12/19/2018 Patient remains to have significant back pain. He got 1 dose of steroids yesterday and put on volume every 8 hours decrease in his morphine therapy frequency every 3 hours. He has mild increase in WBC count up to 18 K, mostly related to his steroids. 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 Patient is already on Flomax. Also repeat chest x-ray: Pending infectious disease follow- up is appreciated. Orthopedic team R following the case. 12/20/18 Patient is a drowsy from his pain and indications affect probably. Chest x-ray and renal ultrasound, his been on IV antibiotics, cefepime for his back infection. Infectious disease and orthopedic teams are following the patient. He did team recommended an MRI of the spine and does not postpone the CAT scan for reevaluation. Sedation will be provided prior to MRI if indicated. Patient has leukocytosis at 18 K, mostly secondary to steroid effect. Repeat WBC: Pending 12/21/2018 Patient still have significant lower back pain that he missed his movement in his lower extremity, his pain looks like exacerbated by the movement of his lower extremity for example bending his knees. Patient is not confused today and stated he is fully awake and oriented. Patient has CT of the abdomen and pelvis yesterday with IV contrast: There is nonspecific rectal wall thickening consistent with colitis, no change of the discitis at L4 to L5 with epidural abscess. Tumor was not excluded. 6 cm liver mass and 8.5 cm prostate. His leukocytosis is improving 18 down to 15 K. Rest of labs looks stable. Patient hemodynamically stable. Urine culture growing enterococcus on the top of E. coli, infectious disease team are aware from yesterday as per staff. Patient on cefepime as per ID recommendation. Patient also has been followed up by orthopedic team. Objective - Vital Signs Vital signs: Vital Signs Temp 97.9 F 12/21/18 04:51 Pulse 101 H 12/21/18 04:51 Resp 16 12/21/18 04:51 BP 145/75 12/21/18 04:51 Pulse Ox 98 12/21/18 04:51 Intake & Output 12/20/18 12/21/18 12/21/18 18:59 06:59 18:59 Intake Total 600 625 Output Total 1340 Balance 600 -715 Intake: Intake, IV Titration 600 625 Amount 0.9% NaCl with KCl 40 Meq 600 525 /l 1,000 ml @ 75 mls/hr IV .[id number] DIPESH Rx#: [id number] Cefepime 1 gm In Sodium 100 Chloride 0.9% 50 ml @ 100 mls/hr IVPB Q8HR DIPESH Rx# :[id number] Output: Urine 1340 Other: Voiding Method Urinal Urinal Incontinent Incontinent - Exam GENERAL: The patient is alert and oriented x3, not in any acute distress. Well developed, well nourished. HEENT: Pupils are round and equally reacting to light. EOMI. No scleral icterus. No conjunctival pallor. Normocephalic, atraumatic. No pharyngeal erythema. No thyromegaly. CARDIOVASCULAR: S1 and S2 present. No murmurs, rubs, or gallops. PULMONARY: Chest is clear to auscultation, no wheezing or crackles. ABDOMEN: Soft, nontender, nondistended, normoactive bowel sounds. No palpable organomegaly. -MUSCULOSKELETAL: No joint swelling or deformity. Back exam, patient refused because his painful : deferred to the orthopedic team EXTREMITIES: No cyanosis, clubbing, or pedal edema. NEUROLOGICAL: Gross neurological examination did not reveal any focal deficits. No weakness in the lower extremity SKIN: No rashes. - Labs CBC & Chem 7: 12/20/18 08:34 12/20/18 08:34 Labs: Microbiology - Last 24 Hours (Table) 12/19/18 19:10 Urine Culture - Preliminary Urine,Voided Group D Enterococcus 12/17/18 15:00 Blood Culture - Preliminary Blood No Growth after 72 hours 12/17/18 15:04 Blood Culture - Preliminary Blood No Growth after 72 hours Assessment and Plan Assessment: acute back pain secondary to diskitis and epidural abscess. s/p lamenectomy epidural abscess status post debridement , continue with antibiotics for 6 weeks. h/o liver cancer with possible metastatic lesion to the spine, however pathology report came back negative for malignancy h/o IVC thrombosis , on xarelto h/o prostate cancer ,PSA stable around low 20s Nonspecific colitis in the rectum. Plan: this is a pleasant 83 yo M who presents with epidural abscess. ID team are following the pt and they are managing the antibiotic . orthopedic following up with pt as well Labs and medication were reviewed.. Continue same treatment. Continue with symptomatic treatment. Resume home medication. Monitor lytes and vitals. DVT and GI prophylaxis. Further recommendations of the clinical course of the patient DVT prophylaxis: heparin GI Prophylaxis: protonix PT/OT: Pending Prognosis is guarded
[2018-12-21 09:59] LABS: Anisocytosis Slight; Basophils # (A) 0.1 k/uL (0-0.2); Basophils % (A) 1 %; Eosinophils # (A) 0.4 k/uL (0-0.7); Eosinophils % (A) 3 %; HCT 38.8 % (39.0-53.0); HGB 11.8 gm/dL (13.0-17.5); Hypochromasia Slight; Lymphocytes # (A) 2.4 k/uL (1.0-4.8); Lymphocytes % (A) 21 %; MCH 26.6 pg (25.0-35.0); MCHC 30.4 g/dL (31.0-37.0); MCV 87.3 fL (80.0-100.0); Mean Platelet Volume 6.9; Monocytes # (A) 0.6 k/uL (0-1.0); Monocytes % (A) 6 %; Neutrophils # (A) 7.9 k/uL (1.3-7.7); Neutrophils % (A) 68 %; Platelet Count 486 k/uL (150-450); RBC 4.45 m/uL (4.30-5.90); RDW 16.2 % (11.5-15.5); WBC 11.6 k/uL (3.8-10.6)
[2018-12-21] MEDS: CALCITONIN INJ 200 UNIT/ML (MDV) VIAL IM SCH (12:18)
[2018-12-21] MEDS: DIAZEPAM 5 MG TAB PO PRN (12:19)
--- NOTE | 2018-12-21 12:50 | P.CONS ---
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 Patient underwent laminectomy wide decompression with bilateral partial fasciectomy and foraminotomy vasectomy irrigation and excisional debridement of epidural abscess on 12/05/2018. Patient has been experiencing intermittent spasms originating sometimes in the bilateral thighs back and abdomen. Increased abdominal discomfort bloatedness noticed yesterday. CT abdomen and pelvis yesterday reported development of new rectal wall thickening consistent with nonspecific colitis. No change in the changes of discitis at L4 5 with epidural abscess. Tumor is not excluded. Poorly marginated mixed density liver mass consistent with tumor unchanged. Present chemistries white count 11.6. Hemoglobin 11.8. Platelet 486. Afebrile. No history of colitis proctitis inflammatory bowel disease. To his memory colonoscopy completed in the last 2-3 years [facility] and was unremarkable. Denies diarrhea constipation or rectal bleeding however nurse reports she's passed a few loose stools. Reporting mild tenderness to the left lower quadrant left upper side. Receiving intravenous cefepime Review of Systems Constitutional: Denies fever, chills, sweats, weight gain, or loss. HEENT: Negative for migraines, blurred vision or loss, earaches, drainage, tinnitus, oral mucosal lesions, dysphagia, or odynophagia. Cardiac: Negative for chest pain, arrhythmias, or palpitation. Respiratory: Negative for shortness of breath, hemoptysis, cough, or sputum production. Gastrointestinal: See HPI for pertinent findings. Genitourinary: Negative for hematuria, urgency, frequency, polyuria, dysuria, or penile discharge. Musculoskeletal: Severe back pain. Neurologic: Negative for stroke or TIA. Endocrine: Negative for thyroid problems. Skin: Negative for rash or itching. Psychiatric: Negative history for depression and anxiety Past Medical History Past Medical History: Cancer, GERD/Reflux, Hyperlipidemia, Hypertension, Prostate Disorder, Thyroid Disorder Additional Past Medical History / Comment(s): SKIN CANCER, prostate & liver cancer. CURRENT UTI History of Any Multi-Drug Resistant Organisms: Other MDRO Year Discovered:: 09/29/2018 MDRO Source:: UTI Past Surgical History: Adenoidectomy, Hernia Repair, Joint Replacement, Prostate Surgery, Tonsillectomy Additional Past Surgical History / Comment(s): PARATHYROID SX. ESOPHAGEAL SX FOR ACHALASIA. VARICOSE VEIN SX. BILAT CATARAT SX. COLONOSCOPY Past Anesthesia/Blood Transfusion Reactions: No Reported Reaction Past Psychological History: No Psychological Hx Reported Additional Psychological History / Comment(s): etired lives with the . Adult daughter is visiting. No tobacco use. No experience. No extensive travel. Smoking Status: Never smoker Past Alcohol Use History: Rare Past Drug Use History: None Reported - Past Family History Mother Family Medical History: Cancer Additional Family Medical History / Comment(s): COLON Medications and Allergies Home Medications Medication Instructions Recorded Confirmed Type Atenolol [Tenormin] 25 mg PO DAILY 01/09/18 12/02/18 History Levothyroxine Sodium [Synthroid] 100 mcg PO DAILY 01/09/18 12/02/18 History Pantoprazole Sodium [Protonix] 40 mg PO DAILY 01/09/18 12/02/18 History Tamsulosin HCl [Flomax] 0.4 mg PO DAILY 01/09/18 12/02/18 History Acetaminophen Tab [Tylenol] 650 mg PO Q6HR PRN tab 10/25/18 12/02/18 Rx HYDROcodone/APAP 5-325MG [[place] 1 each PO Q4HR PRN tab 10/25/18 12/02/18 Rx 5-325] Cholecalciferol [Vitamin D3] 1,000 unit PO DAILY 12/02/18 12/02/18 History Sennosides-Docusate Sodium 1 each PO BID PRN 12/02/18 12/02/18 History [Senokot-S] Cefepime HCl [Maxipime] 1 gm IV Q8H #114 vial 12/12/18 Rx Magnesium Hydroxide [Milk of 2,400 mg PO DAILY PRN ml 12/14/18 Rx Magnesia Concentrate] Polyethylene Glycol 3350 [Miralax] 17 gm PO DAILY PRN powd.pack 12/14/18 Rx Rivaroxaban [Xarelto] 20 mg PO W/SUPPER tab 12/14/18 Rx Allergies Allergy/AdvReac Type Severity Reaction Status Date / Time No Known Allergies Allergy Verified 12/02/18 08:07 Physical Exam Vitals: Vital Signs Temp Pulse Resp BP Pulse Ox 12/21/18 12:27 98.8 F 64 17 106/68 98 12/21/18 04:51 97.9 F 101 H 16 145/75 98 12/20/18 21:00 97.6 F 88 18 139/87 95 Intake and Output 12/20/18 12/21/18 12/21/18 22:59 06:59 14:59 Intake Total 625 Output Total 720 620 Balance -720 5 Intake: Intake, IV Titration 625 Amount 0.9% NaCl with KCl 40 Meq 525 /l 1,000 ml @ 75 mls/hr IV .[id number] DIPESH Rx#: [id number] Cefepime 1 gm In Sodium 100 Chloride 0.9% 50 ml @ 100 mls/hr IVPB Q8HR DIPESH Rx# :[id number] Output: Urine 720 620 Other: Voiding Method Urinal Urinal Urinal Incontinent Incontinent Incontinent General appearance: The patient is alert, oriented, in no acute distress. HET: Head is normocephalic and atraumatic. Pupils are equal and reactive. Oropharynx is clear without lesions. Neck: Supple without lymphadenopathy. Trachea midline. Heart: S1 S2. Regular rate and rhythm. Lungs: No crackles or wheezes are heard. Abdomen: Soft, tenderness left lower quadrant, nondistended with bowel sounds. No peritoneal signs. No palpable organomegaly or masses. Extremities: Normal skin color and turgor. No cyanosis, rash, ulceration, clubbing, or edema. Radial and pedal pulses are 2/4 bilaterally. Neurological: No focal deficits. Strength and sensation are grossly intact. Results CBC & Chem 7: 12/21/18 09:42 12/20/18 08:34 Labs: Abnormal Lab Results - Last 24 Hours (Table) 12/21/18 Range/Units 09:42 WBC 11.6 H (3.8-10.6) k/uL Hgb 11.8 L (13.0-17.5) gm/dL Hct 38.8 L (39.0-53.0) % MCHC 30.4 L (31.0-37.0) g/dL RDW 16.2 H (11.5-15.5) % Plt Count 486 H (150-450) k/uL Neutrophils # 7.9 H (1.3-7.7) k/uL Microbiology - Last 24 Hours (Table) 12/19/18 19:10 Urine Culture - Preliminary Urine,Voided Group D Enterococcus 12/17/18 15:00 Blood Culture - Preliminary Blood No Growth after 72 hours 12/17/18 15:04 Blood Culture - Preliminary Blood No Growth after [address] scan - abdomen: report reviewed (Dr. Jovel) Assessment and Plan (1) Colitis Narrative/Plan: 83-year-old male admitted nearly 3 weeks ago with intractable lower back pain status post back surgery drainage of epidural abscess with underlying osteomyelitis reporting left lower abdominal pain without bleeding or diarrhea CT reported rectal thickening possible nonspecific colitis possible proctitis. Recent diagnosis of prostate and hepatocellular carcinoma receiving Lupron. 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/Plan: Maintained on Xarelto Current Visit: Yes Status: Acute Code(s): I82.220 - ACUTE EMBOLISM AND THROMBOSIS OF INFERIOR VENA CAVA SNOMED Code(s): 460695123 (4) Epidural abscess Current Visit: Yes Status: Acute Code(s): G06.2 - EXTRADURAL AND SUBDURAL ABSCESS, UNSPECIFIED SNOMED Code(s): 34933539 (5) Hepatocellular carcinoma Current Visit: Yes Status: Acute Priority: High Code(s): C22.0 - LIVER CELL CARCINOMA SNOMED Code(s): 732643831 (6) Intractable low back pain Current Visit: Yes Status: Acute Code(s): M54.5 - LOW BACK PAIN SNOMED Code(s): 58025178289248289 (7) Prostate cancer Current Visit: Yes Status: Acute Priority: High Code(s): C61 - MALIGNANT NEOPLASM OF PROSTATE SNOMED Code(s): 028615580 Plan: 1. Stool studies if patient has diarrhea. Clostridium difficile specimen receive results are pending. Will add Flagyl to antibiotic regimen. We'll follow with you daily. Endoscopic exams not planned at this time. Thank you for this kind referral and the opportunity to participate in the care of your patient. This consultation was discussed with Dr. Jovel. The impression and plan of care have been directed as dictated.
--- NOTE | 2018-12-21 12:59 | P.PN ---
Progress Note - Text Progress Note Date: 12/21/18 The patient is seen and examined today at bedside. He is still having significant spasm in his back when he tries to move. He has pain around his bilateral thighs as well. He denies new weakness in his lower extremities and his ankles, feet and Toes. He says he is able to lay still but occasionally initially has spasms even when laying still. He distally has positive spasms in his back and his legs when he tries to move for sit up. He had a computed tomography scan of his abdomen and pelvis yesterday. I was able to review the images as well as report. In terms of his lumbar spine there is evidence of his laminectomy and discectomy from his discitis with osteomyelitis. He has full discectomy with partial corpectomy. There is evidence of fluid collection at the disc space and at the epidural space as well as the posterior wound area. There is no free gas around the epidural space. In terms of the computed tomography scan findings, I do not surprised by the fluid collection around the surgical site and the epidural space and disc space. It is common to have some fluid accumulation postoperatively. This is not specifically imply that there is an abscess at the area and he is not having new neurologic compromise. There is not good structural support had the L4 5 motion segment and it is likely when he moves he has some relative instability at that level causing his low back to spasms severely. It is likely that significant portion of his pain comes from the L4 5 motion segment with its abnormal motion. I discussed with him the possibility of doing a repeat irrigation and debridement laminectomy at the L4 5 space. If we do pursue this I think that it is most prudent to also pursue fusion and stabilization at the L4 5 segment with pedicle screws and rods. Certainly this would require long-term antibiotics in light of his infection. However giving him some stability at the motion segment may allow him to start to mobilize as he is essentially incapacitated and unable to get out of bed at this point. I discussed this with him at length. He says that he has more family coming in this weekend and would like to discuss it with him as well. We can offer this potentially here at this hospital if they choose but they have discussed the possibility of moving to a tertiary care facility which would also be reasonable given his multiple issues comorbidities and severe issues of the spine. I discussed this with the oncology service as well as with medicine with Dr. malik. They understand and are agreeable.
--- NOTE | 2018-12-21 13:47 | P.PN ---
Subjective Progress Note Date: 12/21/18 Principal diagnosis: New Dual Primary Malignancies, Increased pain. Pain and fear of movement continue to be severe, yesterday on exam rebound tenderness to LLQ abdomen was identified and CT abdomen performed. This revealed thickening rectum as consistent with underlying colitis. Per nursing he has been having loose stools, not consistent with true "diarrhea" although loose. The CT also revealed increased in spinal abscess which he is status post I and D. His White count has been trending up, no fevers. I discussed case in detail with Dr. Ramos and Ortho. Ortho would like to return to OR for repeat I and D and well as stabilization with fusion to spine. He plans to speak with Daughter and son when they are here tomorrow to determine plan to either transfer care versus intervention, plan is resonable either way family decides. at bedside would like to wait on her children to be present to assist in [id number] Objective - Vital Signs Vital signs: Vital Signs Temp 98.8 F 12/21/18 12:27 Pulse 64 12/21/18 12:27 Resp 17 12/21/18 12:27 BP 106/68 12/21/18 12:27 Pulse Ox 98 12/21/18 12:27 Intake & Output 12/20/18 12/21/18 12/21/18 18:59 06:59 18:59 Intake Total 600 625 Output Total 1340 Balance 600 -715 Intake: Intake, IV Titration 600 625 Amount 0.9% NaCl with KCl 40 Meq 600 525 /l 1,000 ml @ 75 mls/hr IV .[id number] DIPESH Rx#: [id number] Cefepime 1 gm In Sodium 100 Chloride 0.9% 50 ml @ 100 mls/hr IVPB Q8HR DIPESH Rx# :[id number] Output: Urine 1340 Other: Voiding Method Urinal Urinal Urinal Incontinent Incontinent Incontinent - Exam Constitutional General appearance: mild acute distress from pain and fear of pain with movement - EENT Eyes: EOMI, PERRLA ENT: hearing grossly normal, normal oropharynx - Neck Neck: no lymphadenopathy Thyroid: bilateral: normal size - Respiratory Respiratory: bilateral: CTA - Cardiovascular Rhythm: regular Heart sounds: normal: S1, S2 - Gastrointestinal General gastrointestinal: normal bowel sounds, soft - Integumentary Integumentary: normal - Musculoskeletal Musculoskeletal: generalized weakness, strength equal bilaterally - Psychiatric Psychiatric: A&O x's 3, appropriate affect - Labs CBC & Chem 7: 12/21/18 09:42 12/20/18 08:34 Labs: Abnormal Lab Results - Last 24 Hours (Table) 12/21/18 Range/Units 09:42 WBC 11.6 H (3.8-10.6) k/uL Hgb 11.8 L (13.0-17.5) gm/dL Hct 38.8 L (39.0-53.0) % MCHC 30.4 L (31.0-37.0) g/dL RDW 16.2 H (11.5-15.5) % Plt Count 486 H (150-450) k/uL Neutrophils # 7.9 H (1.3-7.7) k/uL Microbiology - Last 24 Hours (Table) 12/19/18 19:10 Urine Culture - Preliminary Urine,Voided Group D Enterococcus 12/17/18 15:00 Blood Culture - Preliminary Blood No Growth after 72 hours 12/17/18 15:04 Blood Culture - Preliminary Blood No Growth after 72 hours Assessment and Plan Plan: (1) Intractable low back pain Narrative/Plan: - related to Disckitis and Abscess status post Surgical Intervention with Ortho spine - Unfortunately, his overall discomfort has worsened rather than improved. CT abd/Pelvis revealed increased Spinal Abscess from 12/20/18. - Antibiotics are continued and Ortho Surgery following. 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 Xarelto was restarted without issues after surgery, although with probability of requiring re-intervention with I and D and possible fusion I have asked Ortho if they would like to Hold Xarelto again and start hepoarin drip in anticipation. Current Visit: No Status: Acute Priority: High Code(s): I82.220 - ACUTE EMBOLISM AND THROMBOSIS OF INFERIOR VENA CAVA SNOMED Code(s): 569785177 (3) Hepatocellular carcinoma Narrative/Plan: - Appears to be localized likely candidate chemoembolization of liver, will need to address acute lumbarsacral infectious process prior to intervention for liver lesion. Current Visit: Yes Status: Acute Code(s): C22.0 - LIVER CELL CARCINOMA SNOMED Code(s): 704299345 (4) Prostate cancer Narrative/Plan: - As noted the patient had multiple prior prostate biopsies that were negative. The diagnosis was made via lymph node biopsy last month. PSA has been stable in the low 20 range. He did receive a one monthe dose of Lupron on 12/18/18 Current Visit: Yes Status: Acute Code(s): C61 - MALIGNANT NEOPLASM OF PROSTATE SNOMED Code(s): 859465135 (5) Osteomyelitis/Diskitis: - status Post Surgery number one for 12/05/18. - ID is following and Antibiotics at discharge per Dr. Acosta - Appears to have recurrent or worsening abscesss on CT, ortho following and discussed in detail regarding transfer versus re-intervention. - They plan to discuss with Family when Daughter and son are here on Monday (6) Ecoli UTI - Recurrent: - Recurrent Resistent UTI - COntinued antibiotics, Dr. Acosta to Manage. (7) Colitis - Start Flagyl after stool collection. Plan: - Continue on supportive treatment at this time - Reviewed CT in detail and discussed with patient, family, ortho and Primary team - Defer surgical/infectious decisions to Ortho and ID - Two Primary Malignancies both appear to be early stage not requiring immediate chemotherapy. The plan for prostate cancer is lupron injections ( status post first dose of a monthly stregnth on 12/18/18) and plan after resolution of infectious processes and surgical interventions for chemoembolization of hepatocellular carcinoma and lesions. - Addendum: Plan is to transfer to [facility]. Cat Whiting NP Physician Attestation: I have completed the full history and physical of this patient and agree with above dictation by Cat Whiting NP dictated as a scribe.
[2018-12-21] MEDS: metroNIDAZOLE 500 MG TAB PO SCH ×2 (16:00→16:01)
[2018-12-21] MEDS: MORPHINE SULFATE IR 15 MG TABLET PO PRN (16:01)
[2018-12-21 21:18] VITALS: RESP 16
[2018-12-21] MEDS: CHERRY FLAVOR 60 ML BOTTLE PO SCH (23:54)
[2018-12-21] MEDS: VANCOMYCIN ORAL SOLUTION 250 MG/5 ML BOTTLE PO SCH (23:55)
[2018-12-22 05:41] VITALS: BP 130/86; PULSE 86; TEMP 97.2
[2018-12-22] MEDS: CHERRY FLAVOR 60 ML BOTTLE PO SCH (05:44)
[2018-12-22] MEDS: LEVOTHYROXINE 100 MCG TAB PO SCH (05:44)
[2018-12-22] MEDS: VANCOMYCIN ORAL SOLUTION 250 MG/5 ML BOTTLE PO SCH (05:45)
[2018-12-22 07:45] LABS: Anisocytosis Slight; Basophils # (A) 0.1 k/uL (0-0.2); Basophils % (A) 1 %; Eosinophils # (A) 0.3 k/uL (0-0.7); Eosinophils % (A) 3 %; HCT 36.7 % (39.0-53.0); HGB 11.4 gm/dL (13.0-17.5); Hypochromasia Moderate; Lymphocytes # (A) 1.8 k/uL (1.0-4.8); Lymphocytes % (A) 16 %; MCH 27.2 pg (25.0-35.0); MCHC 31.2 g/dL (31.0-37.0); MCV 87.1 fL (80.0-100.0); Mean Platelet Volume 6.5; Monocytes # (A) 0.6 k/uL (0-1.0); Monocytes % (A) 5 %; Neutrophils # (A) 8.3 k/uL (1.3-7.7); Neutrophils % (A) 74 %; Platelet Count 496 k/uL (150-450); RBC 4.21 m/uL (4.30-5.90); RDW 16.2 % (11.5-15.5); WBC 11.3 k/uL (3.8-10.6)
[2018-12-22 07:57] LABS: ALT 44 U/L (21-72); AST 29 U/L (17-59); Albumin 2.9 g/dL (3.5-5.0); Alkaline Phosphatase 132 U/L (38-126); Anion Gap 6 mmol/L; Bilirubin, Delta 0.3 mg/dL (0.0-0.2); Bilirubin,Unconjugated 0.4 mg/dL (0.0-1.1); Blood Urea Nitrogen 10 mg/dL (9-20); Calcium 9.5 mg/dL (8.4-10.2); Carbon Dioxide 26 mmol/L (22-30); Chloride 105 mmol/L (98-107); Glucose 104 mg/dL (74-99); Potassium 4.7 mmol/L (3.5-5.1); Sodium 137 mmol/L (137-145); Total Bilirubin 0.7 mg/dL (0.2-1.3); Total Protein 6.4 g/dL (6.3-8.2)
[2018-12-22] MEDS: ATENOLOL 25 MG TAB PO SCH (09:41)
[2018-12-22] MEDS: TAMSULOSIN 0.4 MG CAP.ER.24H PO SCH (09:41)
[2018-12-22] MEDS: PANTOPRAZOLE 40 MG TABLET PO SCH (09:41)
[2018-12-22] MEDS: MORPHINE SULFATE ER 15 MG TABLET PO SCH (09:41)
[2018-12-22] MEDS: METHOCARBAMOL 500 MG TAB PO SCH (09:44)
[2018-12-22] MEDS: POLYETHYLENE GLYCOL 3350 17 GM POWD.PACK PO SCH (09:46)
[2018-12-22] MEDS: SENNOSIDES-DOCUSATE SODIUM 1 EACH TAB PO SCH (09:47)
[2018-12-22] MEDS: CEFEPIME 1 GM in SODIUM CHLORIDE 0.9% 50 ML IVPB SCH (10:32)
--- NOTE | 2018-12-22 11:46 | P.DS ---
Providers Date of admission: 12/02/18 00:35 Attending physician: Serena Pickering Consults: 12/02/18 11:45 Consult Physician Urgent Consulting Provider: Ash Singletary Consult Reason/Comments: Known to you, hx colon ca Do you want consulting provider notified?: Already Contacted 12/02/18 11:46 Consult Physician Routine Consulting Provider: Clayton Kirby Consult Reason/Comments: lumbar back pain Do you want consulting provider notified?: Yes 12/02/18 11:49 Consult Physician Urgent Consulting Provider: Rajesh Hanley Consult Reason/Comments: lumbar back/hip pain Do you want consulting provider notified?: Yes 12/03/18 08:20 Consult Physician Urgent Consulting Provider: Griffin Acosta Consult Reason/Comments: Discitis Do you want consulting provider notified?: Yes 12/20/18 22:29 Consult Physician Routine Consulting Provider: Karen Wood Consult Reason/Comments: LLQ pain colitis ct Do you want consulting provider notified?: Yes, Notify in am Primary care physician: Leonard Bowser MD Hospital Course: Diagnoses acute back pain secondary to diskitis, acute osteomyelitis and epidural abscess. s/p lamenectomy epidural abscess status post debridement , continue with antibiotics for 6 weeks. Low back pain with lower extremity radiculopathy, secondary to above. h/o liver cancer with possible metastatic lesion to the spine, however pathology report came back negative for malignancy h/o IVC thrombosis , on xarelto h/o prostate cancer ,PSA stable around low 20s C. diff colitis in the rectum. 6 cm right liver mass 8.5 cm enlarged prostate Hospital course This is a pleasant 83 years old male with past medical history of liver cancer and prostate cancer recently diagnosed presents because of Low back pain with lower extremity radiculopathy. He is status post laminectomy and decompression of the spinal cord with debridement of epidural abscess at L4-L5, and partial corpectomy of L4 osteomyelitis on 12/05/2018. Orthopedic team and infectious team were following the patient, as well as oncology team. Culture from the wound and the urine came back positive for E. coli, Biopsy came back positive for abscess, acute osteomyelitis, and negative for malignancy. he has been treated with cefepime with the plan to continue for 6 weeks. Patient currently still has low back pain with difficulty in moving his extremity due to severe pain especially on the left leg. 1-2 days ago patient was having left lower quadrant abdominal pain, CAT scan of abdomen/pelvis: Rectal wall thickening consistent with colitis, severe spinal stenosis at L4 to 5 with epidural mass consistent with epidural abscess. C. diff antigen was tested and came back positive. Patient was started on oral vancomycin. Patient has minimal diarrhea. Abdominal pain improved. No nausea vomiting. No chest pain or dyspnea. No fever. Patient also has enterococcus VRE in repeat urine culture of 12/19/2018 Case was discussed with the other consultants including hematology/oncology and orthopedic teams and decision was made to transfer the patient to tertiary center for further evaluation and management, discussed with the family and they agree with this plan too. Patient agreed for the transfer pt is stable for transfer in guarded prognosis physical exam Gen.: Patient alert awake and oriented X 3, NOT IN DISTRESS CVS: s1-s2, RRR, no murmur CHEST:bilateral CTA, no wheezing or crepitation Abdomen: Soft, no tenderness, no distention, positive bowel sounds Extremities: No leg edema or induration musculoskeltal: low back pain and tenderness, wound with dressing. Neuro: Cranial nerves are grossly intact, low back pain, lower extremity exam is limited by the pain Time spent more than 35 minutes Patient Condition at Discharge: Good Plan - Discharge Summary Discharge Rx Participant: No New Discharge Prescriptions: New Cefepime HCl [Maxipime] 1 gm IV Q8H #114 vial Magnesium Hydroxide [Milk of Magnesia Concentrate] 2,400 mg PO DAILY PRN ml PRN Reason: Constipation Polyethylene Glycol 3350 [Miralax] 17 gm PO DAILY PRN powd.pack PRN Reason: Constipation Rivaroxaban [Xarelto] 20 mg PO W/SUPPER tab Diazepam [Valium] 5 mg PO Q8H PRN tab PRN Reason: Spasms Methocarbamol [Robaxin] 500 mg PO TID tab Morphine Sulfate ER [Ms Contin] 30 mg PO Q12HR tablet Morphine Sulfate Ir [MSIR] 15 mg PO Q3HR PRN tablet PRN Reason: SEVERE Pain Vancomycin Oral Solution 250 mg PO Q6HR ml Continue Levothyroxine Sodium [Synthroid] 100 mcg PO DAILY Atenolol [Tenormin] 25 mg PO DAILY Tamsulosin HCl [Flomax] 0.4 mg PO DAILY Pantoprazole Sodium [Protonix] 40 mg PO DAILY Acetaminophen Tab [Tylenol] 650 mg PO Q6HR PRN tab PRN Reason: Fever And/ Or Pain HYDROcodone/APAP 5-325MG [[place] 5-325] 1 each PO Q4HR PRN tab PRN Reason: Moderate Pain Sennosides-Docusate Sodium [Senokot-S] 1 each PO BID PRN PRN Reason: Constipation Cholecalciferol [Vitamin D3] 1,000 unit PO DAILY Discontinued Triamterene-Hctz 37.5-25Mg [Dyazide 37.5-25 Capsule] 1 cap PO DAILY amLODIPine [Norvasc] 10 mg PO DAILY Rivaroxaban [Xarelto] 20 mg PO DAILY Discharge Medication List Atenolol [Tenormin] 25 mg PO DAILY 01/09/18 [History] Levothyroxine Sodium [Synthroid] 100 mcg PO DAILY 01/09/18 [History] Pantoprazole Sodium [Protonix] 40 mg PO DAILY 01/09/18 [History] Tamsulosin HCl [Flomax] 0.4 mg PO DAILY 01/09/18 [History] Acetaminophen Tab [Tylenol] 650 mg PO Q6HR PRN tab 10/25/18 [Rx] HYDROcodone/APAP 5-325MG [[place] 5-325] 1 each PO Q4HR PRN tab 10/25/18 [Rx] Cholecalciferol [Vitamin D3] 1,000 unit PO DAILY 12/02/18 [History] Sennosides-Docusate Sodium [Senokot-S] 1 each PO BID PRN 12/02/18 [History] Cefepime HCl [Maxipime] 1 gm IV Q8H #114 vial 12/12/18 [Rx] Magnesium Hydroxide [Milk of Magnesia Concentrate] 2,400 mg PO DAILY PRN ml [Rx] Polyethylene Glycol 3350 [Miralax] 17 gm PO DAILY PRN powd.pack 12/14/18 [Rx] Rivaroxaban [Xarelto] 20 mg PO W/SUPPER tab 12/14/18 [Rx] Diazepam [Valium] 5 mg PO Q8H PRN tab 12/22/18 [Rx] Methocarbamol [Robaxin] 500 mg PO TID tab 12/22/18 [Rx] Morphine Sulfate ER [Ms Contin] 30 mg PO Q12HR tablet 12/22/18 [Rx] Morphine Sulfate Ir [MSIR] 15 mg PO Q3HR PRN tablet 12/22/18 [Rx] Vancomycin Oral Solution 250 mg PO Q6HR ml 12/22/18 [Rx] Follow up Appointment(s)/Referral(s): Ash Singletary MD [STAFF PHYSICIAN] - 2 Weeks (oncologist, for your liver cancer and prostate cancer ) Clayton Kirby DO [Doctor of Osteopathic Medicine] - 1 Week Leroy Mckeon PAC [PHYSICIAN BRIEF WRITER] - 2 Weeks (Patient may follow-up with Leroy Mckeon PA-C or Dr. Miguel Kirby at [facility] in 1-2 weeks following discharge. ) Leonard Bowser MD [Primary Care Provider] - 1-2 days Ambulatory/Diagnostic Orders: Miscellaneous Lab Order [LAB.AMB] Location: None Selected Basic Metabolic Panel [LAB.AMB] Location: None Selected Complete Blood Count w/diff [LAB.AMB] Location: None Selected Patient Instructions/Handouts: Chronic Back Pain (ED) Activity/Diet/Wound Care/Special Instructions: transfer pt to [facility] for further care and neurosurgical evaluation Patient to adhere to previously discussed treatment plan and will take medication(s) as directed. Patient to follow up with PCP in 1-2 days. Patient to return to ED if symptoms do not improve. 1. Patient may shower with Tegaderm dressing intact. 2. Patient may remove Tegaderm dressing in 3 days and shower without a dressing at that time. 3. Patient should keep Steri-Strips intact and allow them to fall off naturally. 4. Patient should refrain from driving until at least after their first follow- up appointment in the office. 5. Patient should avoid excessive bending, twisting, and lifting; no lifting greater than 10 pounds 6. Take medications as prescribed 7. Do not soak in tub pt is on contact isolation for c diff infection pt is recommended to follow up with his oncologist upon discharge from the hospital within one week Discharge Disposition: OTHER INSTITUTION NOT DEFINED
[2018-12-22] MEDS ORDERED: LINEZOLID 600 MG TAB PO SCH (12:00)
== END 2018-12-22 12:36 | disposition short-term general hospital (02) | DRG 518 ==
LOC: EC 19:41 → SUPCPDRO 19:41 → 3NMEDONC 12-02 00:35
PROVIDERS: ADMIT Internal Medicine; ATTEND Internal Medicine
PROC: 00QT0ZZ Repair Spinal Meninges, Open Approach (ICD-10-PCS; principal; 2018-12-05 09:45)
PROC: 0QB00ZZ Excision of Lumbar Vertebra, Open Approach (ICD-10-PCS; principal; 2018-12-05 09:45)
PROC: 0ST20ZZ Resection of Lumbar Vertebral Disc, Open Approach (ICD-10-PCS; principal; 2018-12-05 09:45)
PROC: 01NB0ZZ Release Lumbar Nerve, Open Approach (ICD-10-PCS; principal; 2018-12-05 09:45)
PROC: 02HV33Z Insertion of Infusion Device into Superior Vena Cava, Percutaneous Approach (ICD-10-PCS; 2018-12-21)
DX: M46.26 Osteomyelitis of vertebra, lumbar region (principal); G06.1 Intraspinal abscess and granuloma; I82.220 Acute embolism and thrombosis of inferior vena cava; C22.0 Liver cell carcinoma; G97.41 Accidental puncture or laceration of dura during a procedure; A04.72 Enterocolitis due to Clostridium difficile, not specified as recurrent; N39.0 Urinary tract infection, site not specified; B95.2 Enterococcus as the cause of diseases classified elsewhere; B96.20 Unspecified Escherichia coli [E. coli] as the cause of diseases classified elsewhere; C61 Malignant neoplasm of prostate; E03.9 Hypothyroidism, unspecified; E78.5 Hyperlipidemia, unspecified; E83.52 Hypercalcemia; E87.6 Hypokalemia; G89.18 Other acute postprocedural pain; G89.3 Neoplasm related pain (acute) (chronic); I10 Essential (primary) hypertension; K21.9 Gastro-esophageal reflux disease without esophagitis; K59.00 Constipation, unspecified; M51.16 Intervertebral disc disorders with radiculopathy, lumbar region; M48.061 Spinal stenosis, lumbar region without neurogenic claudication; N28.1 Cyst of kidney, acquired; N32.0 Bladder-neck obstruction; T38.0X5A Adverse effect of glucocorticoids and synthetic analogues, initial encounter; Z16.24 Resistance to multiple antibiotics; Z79.01 Long term (current) use of anticoagulants; Z79.2 Long term (current) use of antibiotics; Z79.52 Long term (current) use of systemic steroids; Z79.890 Hormone replacement therapy; Z79.899 Other long term (current) drug therapy; Z85.038 Personal history of other malignant neoplasm of large intestine; Z85.05 Personal history of malignant neoplasm of liver; Z85.828 Personal history of other malignant neoplasm of skin; Z86.61 Personal history of infections of the central nervous system; Z86.718 Personal history of other venous thrombosis and embolism; Z87.440 Personal history of urinary (tract) infections
CPT/HCPCS: 36573; 71045; 72020; 72100; 72131; 72158; 74177; 76770; 78815; 80048; 80051; 80053; 80076; 80202; 81001; 82105; 82310; 83036; 83630; 83735; 83970; 84153; 85025; 85610; 85730; 86850; 86900; 86901; 87040; 87045; 87046; 87070; 87075; 87077; 87086; 87186; 87205; 87324; 88304; 88311; 93005; 94760; 96372; 99285

== ENCOUNTER → 2018-12-01 | Outpatient (CLI) | payer MEDICARE, OTHER ==
--- NOTE | 2018-12-03 16:32 | PE ---
EXAMINATION TYPE: PET CT fusion skull to thigh DATE OF EXAM: 12/01/2018 COMPARISON: CT abdomen pelvis dated 10/16/2018. MRI of the lumbar spine of the same date. HISTORY: Hepatocellular carcinoma and metastatic prostate carcinoma, biopsy-proven. No history of carmelita motherapy, radiation or surgery at this time. TECHNIQUE: Following the intravenous administration of 12.4 mCi of F-18 FDG, whole body images are p erformed from the skull base to the midthigh. Images are reviewed on the computer in the coronal, ax ial, and sagittal planes. Reconstructed rotating images are created on independent workstation and r eviewed on the computer. A localization and attenuation correction CT is performed in conjunction w ith the PET scan. SCAN: Initial treatment strategy (PI) FINDINGS: Background mediastinal uptake: 1.7 Background hepatic uptake: SKULL BASE AND NECK: There are focal nonenlarged lymph nodes measuring up to 7 mm along the right lat eral chest wall deep to the chest wall musculature in the superior scapular region such as on series 3 image 63 that demonstrate hypermetabolic uptake with a maximum SUV of 2.9. CHEST, MEDIASTINUM, AND HILAR REGION: No suspicious hypermetabolic uptake. ABDOMEN AND PELVIS: The largest of the previously seen 2 hepatic lesions is readily visible on today' s examination measuring approximately 4.2 x 3.5 cm (similar in size to the exam of 10/16/2018), howev er the second no lesion is less well visualized on this noncontrast examination. The largest demonstr ates a maximum SUV of 2.6 and the smaller demonstrates a maximum SUV of 4.14. The larger demonstrates a lower SUV likely due to a degree of central necrosis. Air is now seen within the biliary system an d the region of the second known metastatic lesion possibly from percutaneous biopsy or necrosis with infection less likely. There are nonenlarged lymph nodes within the bhavya hepatis measuring up to 8 mm in short axis that de monstrate metabolic activity below abdominal background (maximum SUV of 2.26). Nonspecific uptake is seen within the right abductor musculature of the proximal thigh with a maximum SUV of 3.47. OSSEOUS STRUCTURES: At L4-S1 there are erosive and destructive endplate changes with surrounding phle gmon and epidural abscess seen on the prior MRI of the same date. There is associated hypermetabolic activity measuring up to 7.47 of the osseous structures in this region. Right paraspinal musculature is slight uptake that is not above abdominal background is likely reactive. Mild hypermetabolic activ ity of the thoracic spine is seen with a maximum SUV measuring up to 3.06. Within the left hemipelvis there is uptake that is again less than mediastinal background measured at 2.42, possibly degenerati ve. OTHER CT: Ascending thoracic aorta is prominent measuring 4.5 cm but nonenlarged. Minimal coronary ar chica calcifications are seen. Nonenlarged mediastinal lymph nodes contain punctate calcifications in the right paratracheal space as well as within the right hilum compatible with prior benign granuloma tous disease. No suspicious mediastinal adenopathy. There is mild mucosal thickening in the sphenoid sinus and polypoid mucosal thickening in the left maxillary sinus. Thyroid gland is unremarkable. Dep endent subsegmental bilateral atelectasis is seen in addition to minimal centrilobular emphysematous change and biapical pleural-parenchymal thickening. The prostate gland is markedly enlarged measuring up to 8.4 cm in transverse dimension containing dys trophic central zone calcifications. There are small retroperitoneal lymph nodes such as on series 3 image 186 measuring 5 mm in short axis that are not hypermetabolic. There is diastases recti and a small fat filled umbilical hernia. Moderate degenerative changes of th e femoral acetabular joints are seen. There are patulous inguinal canals bilaterally. No dilated larg e or small bowel are seen. Dystrophic calcifications are noted throughout the pancreatic parenchyma w ith atrophy compatible with chronic pancreatitis. The spleen, adrenal glands, and kidneys demonstrate no suspicious abnormality. No cholelithiasis. Moderate calcific atheromatous changes are noted of th e abdominal aorta and its branches. IMPRESSION: 1. Redemonstration of findings compatible with discitis/osteomyelitis of L4-S1 with epidural abscess as seen on the MR lumbar spine of the same date. 2. Hypermetabolic activity of the primary hepatocellular carcinoma with second hepatic metastatic foc us containing air. This air may be postbiopsy change and should be correlated with recent biopsy or l ess likely related to necrosis or superimposed infection. 3. Few periportal lymph nodes and right chest wall lymph nodes remain suspicious for metastasis despi te their small size. 4. Markedly enlarged prostate gland measuring up to 8.4 cm. 5. Minimal homogeneous uptake throughout the midthoracic spine favored to be on the basis of degenera tive change as this is below abdominal background but values are above mediastinal background. Thorac ic spine MR could assess for bone marrow replacement of metastasis. 6. Nonspecific uptake within the right thigh abductor musculature most likely relates to muscular spr ain/spasm or muscular usage during the examination.
== END | disposition home or self-care (01) ==
LOC: RADPETMAIN 08:32
PROVIDERS: ATTEND Internal Medicine Hematology & Oncology
DX: N40.0 Benign prostatic hyperplasia without lower urinary tract symptoms (principal); R91.8 Other nonspecific abnormal finding of lung field; C22.0 Liver cell carcinoma; G06.1 Intraspinal abscess and granuloma
CPT/HCPCS: 78815; A9552

== ENCOUNTER 2019-01-26 09:47 | Inpatient (IN) | payer MEDICARE, OTHER ==
[2019-01-26] MEDS ORDERED: SODIUM CHLORIDE 0.9% 500 ML 500 ML IV STA (09:56)
[2019-01-26] MEDS ORDERED: SODIUM CHLORIDE 0.9% 1,000 ML IV STA ×3 (09:56→14:30)
[2019-01-26 10:38] LABS: Anisocytosis Slight; Basophils # (A) 0.1 k/uL (0-0.2); Basophils % (A) 1 %; Eosinophils # (A) 0.1 k/uL (0-0.7); Eosinophils % (A) 1 %; HCT 35.2 % (39.0-53.0); HGB 11.2 gm/dL (13.0-17.5); Lymphocytes # (A) 1.2 k/uL (1.0-4.8); Lymphocytes % (A) 15 %; MCH 27.1 pg (25.0-35.0); MCHC 31.7 g/dL (31.0-37.0); MCV 85.5 fL (80.0-100.0); Mean Platelet Volume 6.8; Monocytes # (A) 0.5 k/uL (0-1.0); Monocytes % (A) 6 %; Neutrophils # (A) 6.2 k/uL (1.3-7.7); Neutrophils % (A) 77 %; Platelet Count 361 k/uL (150-450); RBC 4.12 m/uL (4.30-5.90); RDW 16.1 % (11.5-15.5); WBC 8.1 k/uL (3.8-10.6)
[2019-01-26 10:55] LABS: ALT 25 U/L (21-72); AST 22 U/L (17-59); Albumin 3.8 g/dL (3.5-5.0); Alkaline Phosphatase 140 U/L (38-126); Amylase 39 U/L (30-110); Anion Gap 10 mmol/L; Blood Urea Nitrogen 17 mg/dL (9-20); Calcium 10.7 mg/dL (8.4-10.2); Carbon Dioxide 28 mmol/L (22-30); Chloride 105 mmol/L (98-107); Glucose 107 mg/dL (74-99); Lipase 64 U/L (23-300); Magnesium 1.9 mg/dL (1.6-2.3); Potassium 3.6 mmol/L (3.5-5.1); Sodium 143 mmol/L (137-145); Total Bilirubin 0.8 mg/dL (0.2-1.3); Total Protein 7.6 g/dL (6.3-8.2)
[2019-01-26 10:57] LABS: Lactic Acid, Venous 2.2 mmol/L (0.7-2.0)
[2019-01-26 11:03] LABS: RBC,Urine >182 /hpf (0-5)
[2019-01-26 11:07] LABS: Appearance,Urine Bloody (Clear); Color,Urine Red
--- NOTE | 2019-01-26 11:10 | ED ---
Altered Mental Status HPI - General Chief Complaint: Altered Mental Status Stated Complaint: Altered Time Seen by Provider: 01/26/19 09:47 Source: patient, family, EMS, RN notes reviewed, old records reviewed Mode of arrival: EMS Limitations: altered mental status - History of Present Illness Initial Comments: This is a 83-year-old male with a history of recent lumbar surgery in [facility] who was at a [facility] in this area for rehab who is brought in for evaluation after demonstrating altered mental status this morning. Apparently per his is awake alert oriented 4 yesterday morning he was confused he pulled out his Sherwood catheter as well as his PICC line. No reports of any fevers chills nausea vomiting sweats. The patient is on eliquis he is also on antibiotics currently. 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 Also history of epidural abscess spinal stenosis. He did have a L4 5 laminectomy decompression with discectomy and partial corpectomy at L4 5. No other modifying factors reported this time. MD Complaint: altered mental status, confusion - Related Data Home Medications Medication Instructions Recorded Confirmed Levothyroxine Sodium [Synthroid] 100 mcg PO DAILY 01/09/18 01/26/19 Pantoprazole Sodium [Protonix] 40 mg PO DAILY 01/09/18 01/26/19 Tamsulosin HCl [Flomax] 0.4 mg PO DAILY 01/09/18 01/26/19 Cholecalciferol [Vitamin D3] 1,000 unit PO DAILY 12/02/18 01/26/19 Apixaban [Eliquis] 5 mg PO BID 01/26/19 01/26/19 Artificial Tears-Hypromellose 1 drops BOTH EYES Q4H 01/26/19 01/26/19 [Artificial Tear Drops] Baclofen [Lioresal] 10 mg PO BID 01/26/19 01/26/19 Cyclobenzaprine [Flexeril] 10 mg PO TID PRN 01/26/19 01/26/19 Diltiazem Cd [Cardizem Cd] 120 mg PO DAILY 01/26/19 01/26/19 Ferrous Sulfate [Feosol] 325 mg PO DAILY 01/26/19 01/26/19 Gabapentin [Neurontin] 300 mg PO TID 01/26/19 01/26/19 Lactose-Reduced Food [Ensure Plus] 1 can PO BID 01/26/19 01/26/19 Meropenem [Merrem] 1 gm IVPB Q8H 01/26/19 01/26/19 Metoprolol Tartrate [Lopressor] 25 mg PO BID 01/26/19 01/26/19 Morphine Sulfate ER [Ms Contin] 15 mg PO TID PRN 01/26/19 01/26/19 QUEtiapine [SEROquel] 25 mg PO HS 01/26/19 01/26/19 fentaNYL 25MCG/HR PATCH [Duragesic 25 mcg TRANSDERM Q72H 01/26/19 01/26/19 25MCG/HR] Previous Rx's Medication Instructions Recorded Acetaminophen Tab [Tylenol] 650 mg PO Q6HR PRN tab 10/25/18 Polyethylene Glycol 3350 [Miralax] 17 gm PO DAILY PRN powd.pack 12/14/18 Diazepam [Valium] 5 mg PO Q8H PRN tab 12/22/18 Allergies Allergy/AdvReac Type Severity Reaction Status Date / Time No Known Allergies Allergy Verified 01/26/19 10:14 Review of Systems ROS Statement: Those systems with pertinent positive or pertinent negative responses have been documented in the HPI. ROS Other: All systems not noted in ROS Statement are negative. Past Medical History Past Medical History: Atrial Flutter, Cancer, GERD/Reflux, Hyperlipidemia, Hypertension, Prostate Disorder, Thyroid Disorder Additional Past Medical History / Comment(s): SKIN CANCER, prostate & liver cancer. CURRENT UTI History of Any Multi-Drug Resistant Organisms: C-DIFF, VRE Date of last positivie culture/infection: 12/19/18 MDRO Source:: Urine-VRE Past Surgical History: Adenoidectomy, Back Surgery, Hernia Repair, Joint Replacement, Prostate Surgery, Tonsillectomy Additional Past Surgical History / Comment(s): PARATHYROID SX. ESOPHAGEAL SX FOR ACHALASIA. VARICOSE VEIN SX. BILAT CATARAT SX. COLONOSCOPY Past Anesthesia/Blood Transfusion Reactions: No Reported Reaction Past Psychological History: No Psychological Hx Reported Smoking Status: Never smoker Past Alcohol Use History: Rare Past Drug Use History: None Reported - Past Family History Mother Family Medical History: Cancer Additional Family Medical History / Comment(s): COLON General Exam - General Exam Comments Initial Comments: This a well-developed sec appearing male who is awake and alert times one he does seem somewhat confused Limitations: altered mental status General appearance: alert, lethargic Head exam: Present: atraumatic, normocephalic, normal inspection Eye exam: Present: normal appearance, PERRL, EOMI. Absent: scleral icterus, conjunctival injection, periorbital swelling ENT exam: Present: mucous membranes dry Neck exam: Present: normal inspection. Absent: tenderness, meningismus, lymphadenopathy Respiratory exam: Present: normal lung sounds bilaterally. Absent: respiratory distress, wheezes, rales, rhonchi, stridor Cardiovascular Exam: Present: normal rhythm, tachycardia, normal heart sounds. Absent: systolic murmur, diastolic murmur, rubs, gallop, clicks GI/Abdominal exam: Present: soft, normal bowel sounds, other (Distended urinary bladder). Absent: distended, tenderness, guarding, rebound, rigid Rectal exam: Present: deferred Extremities exam: Present: normal inspection, full ROM, normal capillary refill. Absent: tenderness, pedal edema, joint swelling, calf tenderness Back exam: Present: normal inspection, full ROM, other (Postsurgical changes). Absent: tenderness Neurological exam: Present: alert, altered, CN II-XII intact Psychiatric exam: Present: normal mood, flat affect Skin exam: Present: warm, dry, intact, normal color. Absent: rash Course Vital Signs 01/26/19 01/26/19 01/26/19 09:50 10:00 10:30 Temperature 98.5 F Pulse Rate 111 H 105 H 104 H Respiratory 22 16 16 Rate Blood Pressure 140/109 140/109 137/96 O2 Sat by Pulse 98 99 98 Oximetry 01/26/19 12:00 Temperature Pulse Rate 114 H Respiratory 18 Rate Blood Pressure 142/95 O2 Sat by Pulse 98 Oximetry - Reevaluation(s) Reevaluation #1: 01/26/19 14:[address] monitor was ordered due to the patient's tachycardia and presentation with altered mental status to rule out dysrhythmia. Patient was noted have a sinus tachycardia occasional PVCs noted on my exam. Reevaluation #2: 01/26/19 14:58 Reevaluation patient reveals more responsiveness with IV fluids. Reevaluation #3: 01/26/19 15:00 Patient was noted have elevated lactic acid 2.2 this is likely on the basis of dehydration way was somewhat tachycardic and there was some evidence of infiltrate in the right upper lobe of the chest x-ray. Repeat lactic acid is ordered disseminated do not believe the elevated lactic is secondary to sepsis but rather dehydration Reevaluation #4: 01/26/19 15:01 I did discuss the patient's findings with the patient's and the patient as well as Dr. Pacheco. I did reevaluate patient several occasions during his ER stay. Medical Decision Making - Lab Data Result diagrams: 01/26/19 10:07 01/26/19 10:07 Lab Results 01/26/19 01/26/19 01/26/19 Range/Units 10:07 10:07 10:07 WBC (3.8-10.6) k/uL RBC (4.30-5.90) m/uL Hgb (13.0-17.5) gm/dL Hct (39.0-53.0) % MCV (80.0-100.0) fL MCH (25.0-35.0) pg MCHC (31.0-37.0) g/dL RDW (11.5-15.5) % Plt Count (150-450) k/uL Neutrophils % % Lymphocytes % % Monocytes % % Eosinophils % % Basophils % % Neutrophils # (1.3-7.7) k/uL Lymphocytes # (1.0-4.8) k/uL Monocytes # (0-1.0) k/uL Eosinophils # (0-0.7) k/uL Basophils # (0-0.2) k/uL Anisocytosis Sodium 143 (137-145) mmol/L Potassium 3.6 (3.5-5.1) mmol/L Chloride 105 (98-107) mmol/L Carbon Dioxide 28 (22-30) mmol/L Anion Gap 10 mmol/L BUN 17 (9-20) mg/dL Creatinine 0.54 L (0.66-1.25) mg/dL Est GFR (CKD-EPI)AfAm >90 (>60 ml/min/1.73 sqM) Est GFR (CKD-EPI)NonAf >90 (>60 ml/min/1.73 sqM) Glucose 107 H (74-99) mg/dL Lactic Ac Sepsis Rflx Plasma Lactic Acid Zane 2.2 H* (0.7-2.0) mmol/L Calcium 10.7 H (8.4-10.2) mg/dL Magnesium 1.9 (1.6-2.3) mg/dL Total Bilirubin 0.8 (0.2-1.3) mg/dL AST 22 (17-59) U/L ALT 25 (21-72) U/L Alkaline Phosphatase 140 H (38-126) U/L Ammonia 24 (<30) umol/L Total Creatine Kinase 22 L (55-170) U/L CK-MB (CK-2) 0.3 (0.0-2.4) ng/mL CK-MB (CK-2) Rel Index 1.4 Troponin I <0.012 (0.000-0.034) ng/mL Total Protein 7.6 (6.3-8.2) g/dL Albumin 3.8 (3.5-5.0) g/dL Amylase 39 (30-110) U/L Lipase 64 (23-300) U/L TSH 4.970 H (0.465-4.680) mIU/L Free T4 1.65 (0.78-2.19) ng/dL Urine Color Urine Appearance (Clear) Urine RBC (0-5) /hpf Urine WBC (0-5) /hpf Influenza Type A RNA (Not Detectd) Influenza Type B (PCR) (Not Detectd) 01/26/19 01/26/19 01/26/19 Range/Units 10:07 10:19 10:36 WBC 8.1 (3.8-10.6) k/uL RBC 4.12 L (4.30-5.90) m/uL Hgb 11.2 L (13.0-17.5) gm/dL Hct 35.2 L (39.0-53.0) % MCV 85.5 (80.0-100.0) fL MCH 27.1 (25.0-35.0) pg MCHC 31.7 (31.0-37.0) g/dL RDW 16.1 H (11.5-15.5) % Plt Count 361 (150-450) k/uL Neutrophils % 77 % Lymphocytes % 15 % Monocytes % 6 % Eosinophils % 1 % Basophils % 1 % Neutrophils # 6.2 (1.3-7.7) k/uL Lymphocytes # 1.2 (1.0-4.8) k/uL Monocytes # 0.5 (0-1.0) k/uL Eosinophils # 0.1 (0-0.7) k/uL Basophils # 0.1 (0-0.2) k/uL Anisocytosis Slight Sodium (137-145) mmol/L Potassium (3.5-5.1) mmol/L Chloride (98-107) mmol/L Carbon Dioxide (22-30) mmol/L Anion Gap mmol/L BUN (9-20) mg/dL Creatinine (0.66-1.25) mg/dL Est GFR (CKD-EPI)AfAm (>60 ml/min/1.73 sqM) Est GFR (CKD-EPI)NonAf (>60 ml/min/1.73 sqM) Glucose (74-99) mg/dL Lactic Ac Sepsis Rflx Plasma Lactic Acid Zane (0.7-2.0) mmol/L Calcium (8.4-10.2) mg/dL Magnesium (1.6-2.3) mg/dL Total Bilirubin (0.2-1.3) mg/dL AST (17-59) U/L ALT (21-72) U/L Alkaline Phosphatase (38-126) U/L Ammonia (<30) umol/L Total Creatine Kinase (55-170) U/L CK-MB (CK-2) (0.0-2.4) ng/mL CK-MB (CK-2) Rel Index Troponin I (0.000-0.034) ng/mL Total Protein (6.3-8.2) g/dL Albumin (3.5-5.0) g/dL Amylase (30-110) U/L Lipase (23-300) U/L TSH (0.465-4.680) mIU/L Free T4 (0.78-2.19) ng/dL Urine Color Red Urine Appearance Bloody (Clear) Urine RBC >182 H (0-5) /hpf Urine WBC >182 H (0-5) /hpf Influenza Type A RNA Not Detected (Not Detectd) Influenza Type B (PCR) Not Detected (Not Detectd) 01/26/19 Range/Units 10:57 WBC (3.8-10.6) k/uL RBC (4.30-5.90) m/uL Hgb (13.0-17.5) gm/dL Hct (39.0-53.0) % MCV (80.0-100.0) fL MCH (25.0-35.0) pg MCHC (31.0-37.0) g/dL RDW (11.5-15.5) % Plt Count (150-450) k/uL Neutrophils % % Lymphocytes % % Monocytes % % Eosinophils % % Basophils % % Neutrophils # (1.3-7.7) k/uL Lymphocytes # (1.0-4.8) k/uL Monocytes # (0-1.0) k/uL Eosinophils # (0-0.7) k/uL Basophils # (0-0.2) k/uL Anisocytosis Sodium (137-145) mmol/L Potassium (3.5-5.1) mmol/L Chloride (98-107) mmol/L Carbon Dioxide (22-30) mmol/L Anion Gap mmol/L BUN (9-20) mg/dL Creatinine (0.66-1.25) mg/dL Est GFR (CKD-EPI)AfAm (>60 ml/min/1.73 sqM) Est GFR (CKD-EPI)NonAf (>60 ml/min/1.73 sqM) Glucose (74-99) mg/dL Lactic Ac Sepsis Rflx Y Plasma Lactic Acid Zane (0.7-2.0) mmol/L Calcium (8.4-10.2) mg/dL Magnesium (1.6-2.3) mg/dL Total Bilirubin (0.2-1.3) mg/dL AST (17-59) U/L ALT (21-72) U/L Alkaline Phosphatase (38-126) U/L Ammonia (<30) umol/L Total Creatine Kinase (55-170) U/L CK-MB (CK-2) (0.0-2.4) ng/mL CK-MB (CK-2) Rel Index Troponin I (0.000-0.034) ng/mL Total Protein (6.3-8.2) g/dL Albumin (3.5-5.0) g/dL Amylase (30-110) U/L Lipase (23-300) U/L TSH (0.465-4.680) mIU/L Free T4 (0.78-2.19) ng/dL Urine Color Urine Appearance (Clear) Urine RBC (0-5) /hpf Urine WBC (0-5) /hpf Influenza Type A RNA (Not Detectd) Influenza Type B (PCR) (Not Detectd) - EKG Data -: EKG Interpreted by Me (Sinus tachycardia with occasional PVCs rate was 106. Interval 168 QRS dura) - Radiology Data Radiology results: report reviewed (Review the imaging shows evidence of right upper lobe infiltrate.), image reviewed Disposition Clinical Impression: Delirium due to general medical condition, Right upper lobe pneumonia, Urinary retention, Dehydration Disposition: ADMITTED IP TO THIS HOSP Referrals: Keegan Bedolla MD [Primary Care Provider] - 1-2 days
[2019-01-26 11:20] LABS: Creatine Kinase 22 U/L (55-170)
--- NOTE | 2019-01-26 11:24 | CT ---
EXAMINATION TYPE: CT brain wo con DATE OF EXAM: 01/26/2019 COMPARISON: PET/CT dated 12/01/2018 HISTORY: altered mental status CT DLP: 1125.4 mGycm Automated exposure control for dose reduction was used. TECHNIQUE: CT scan of the head is performed without contrast. FINDINGS: There is no acute intracranial hemorrhage or midline shift identified. There is diffuse v entricular and sulcal prominence consistent with diffuse age-related cerebral atrophy. There is low- attenuation in the periventricular white matter consistent with chronic small vessel ischemic change. The globes are intact. Mild mucosal thickening is seen within the ethmoid sinuses and sphenoid sinu s. Remaining paranasal sinuses and mastoid air cells are well aerated. IMPRESSION: No acute intracranial hemorrhage or midline shift. There is diffuse age-related cerebra l atrophy and chronic small vessel ischemic change noted. Mild mucosal thickening of the ethmoid and sphenoid sinuses.
--- NOTE | 2019-01-26 11:26 | XR ---
EXAMINATION TYPE: XR chest 2V DATE OF EXAM: 01/26/2019 COMPARISON: 12/19/2018 HISTORY: Cough TECHNIQUE: Frontal and lateral views of the chest are obtained. FINDINGS: Within the medial right upper lung there is a patchy approximately 1 cm opacity. This does not appear to be present on the prior of 12/19/2018. Underlying emphysematous changes are seen. Enlar gement of the main pulmonary artery suggests underlying pulmonary arterial hypertension. Mild multile will degenerative changes of the spine are seen. IMPRESSION: Faint patchy right upper lung opacity seen medially may represent pneumonitis or develop ing groundglass pulmonary nodule. Short-term follow-up is recommended.
--- NOTE | 2019-01-26 11:28 | XR ---
EXAMINATION TYPE: XR KUB DATE OF EXAM: 01/26/2019 11:18 AM CLINICAL HISTORY: Abdominal pain TECHNIQUE: Single supine KUB image of the abdomen is obtained. COMPARISON: None. FINDINGS: There is rectal fecal impaction with dilation of the rectum up to 9.8 cm with a rectal feca l ball. No dilation of colon or small bowel is seen throughout the remainder the abdomen. Lung bases are not imaged. Postoperative changes of the lumbar spine are noted. Degenerative changes of the hips are moderate.. IMPRESSION: Fecal impaction with a large rectal fecal ball in the rectal vault measuring 9.8 cm. No p roximal dilatation of bowel to suggest obstruction.
[2019-01-26 11:32] LABS: Creatine Kinase MB 0.3 ng/mL (0.0-2.4); Troponin I <0.012 ng/mL (0.000-0.034)
[2019-01-26 12:33] LABS: T4, Free (Free Thyroxine) 1.65 ng/dL (0.78-2.19)
[2019-01-26] MEDS ORDERED: cefTRIAXone IN SWFI 1,000 MG/10 ML SYRINGE IVP STA (14:26)
[2019-01-26] MEDS ORDERED: PNEUMONIA PROTOCOL UTILIZED 1 EACH MISC PO PRN (15:05)
[2019-01-26] MEDS ORDERED: MORPHINE SULFATE IR 15 MG TABLET PO PRN (15:07)
[2019-01-26] MEDS ORDERED: DIAZEPAM 5 MG TAB PO PRN (15:07)
[2019-01-26] MEDS ORDERED: ACETAMINOPHEN TAB 325 MG TAB PO PRN (15:07)
[2019-01-26] MEDS ORDERED: AZITHROMYCIN 500 MG in SODIUM CHLORIDE 0.9% 250 ML IVPB STA (15:10)
[2019-01-26 16:57] VITALS: BMI 25.4
[2019-01-26] MEDS ORDERED: LEVOFLOXACIN 750MG-D5W PMX 750 MG in DEXTROSE/WATER 1 150ML.BAG IVPB SCH (17:00)
[2019-01-26 17:36] LABS: Glucose,Whole Blood 111 mg/dL (75-99)
[2019-01-26] MEDS: ARTIFICIAL TEARS-HYPROMELLOSE DROPS 15 ML BTL BOTH EYES SCH ×3 (18:14→23:31)
[2019-01-26] MEDS: GABAPENTIN 300 MG CAP PO SCH ×2 (18:15→21:46)
[2019-01-26] MEDS ORDERED: MEROPENEM 1 GM VIAL IVPB SCH (18:30)
[2019-01-26] MEDS: MEROPENEM 1 GM in SODIUM CHLORIDE 0.9% 100 ML IVPB SCH ×2 (19:48→23:31)
[2019-01-26 20:23] LABS: Glucose,Whole Blood 140 mg/dL (75-99)
[2019-01-26] MEDS ORDERED: NON-FORMULARY DRUG (Lactose-Reduced Food [Ensure Plus] 1 CAN) PO SCH (21:00)
[2019-01-26] MEDS: APIXABAN 5 MG TAB PO SCH (21:43)
[2019-01-26] MEDS: METOPROLOL TARTRATE 25 MG TAB PO SCH (21:43)
[2019-01-26] MEDS: QUEtiapine 25 MG TAB PO SCH (21:43)
[2019-01-26] MEDS: BACLOFEN 10 MG TAB PO SCH (21:43)
[2019-01-26] MEDS: CYCLOBENZAPRINE 10 MG TAB PO PRN (21:46)
[2019-01-27] MEDS: PIPERACILLIN-TAZOBACTAM 3.375 GM in SODIUM CHLORIDE 0.9% 100 ML IVPB SCH ×2 (01:09→10:24)
[2019-01-27] MEDS: ARTIFICIAL TEARS-HYPROMELLOSE DROPS 15 ML BTL BOTH EYES SCH ×5 (04:13→21:18)
[2019-01-27] MEDS: LEVOTHYROXINE 100 MCG TAB PO SCH (05:44)
[2019-01-27 06:52] LABS: Glucose,Whole Blood 101 mg/dL (75-99)
[2019-01-27 07:30] LABS: Basophils % (A) 1 %; Eosinophils # (A) 0.3 k/uL (0-0.7); Eosinophils % (A) 6 %; HCT 31.9 % (39.0-53.0); HGB 10.2 gm/dL (13.0-17.5); Hypochromasia Slight; Lymphocytes # (A) 1.5 k/uL (1.0-4.8); Lymphocytes % (A) 27 %; MCH 27.5 pg (25.0-35.0); MCHC 32.1 g/dL (31.0-37.0); MCV 85.8 fL (80.0-100.0); Mean Platelet Volume 6.7; Monocytes # (A) 0.4 k/uL (0-1.0); Monocytes % (A) 8 %; Neutrophils # (A) 3.1 k/uL (1.3-7.7); Neutrophils % (A) 56 %; Platelet Count 296 k/uL (150-450); RBC 3.72 m/uL (4.30-5.90); WBC 5.4 k/uL (3.8-10.6)
[2019-01-27 07:43] LABS: Anion Gap 6 mmol/L; Blood Urea Nitrogen 11 mg/dL (9-20); Calcium 10.1 mg/dL (8.4-10.2); Carbon Dioxide 26 mmol/L (22-30); Chloride 109 mmol/L (98-107); Glucose 86 mg/dL (74-99); Potassium 3.4 mmol/L (3.5-5.1); Sodium 141 mmol/L (137-145)
[2019-01-27] MEDS: FERROUS SULFATE 325 MG TAB PO SCH (08:14)
[2019-01-27] MEDS: CHOLECALCIFEROL 1,000 UNIT TAB PO SCH (08:14)
[2019-01-27] MEDS: GABAPENTIN 300 MG CAP PO SCH ×3 (08:14→21:19)
[2019-01-27] MEDS: BACLOFEN 10 MG TAB PO SCH (08:14)
[2019-01-27] MEDS: TAMSULOSIN 0.4 MG CAP.ER.24H PO SCH (08:14)
[2019-01-27] MEDS: APIXABAN 5 MG TAB PO SCH ×2 (08:14→21:18)
[2019-01-27] MEDS: POLYETHYLENE GLYCOL 3350 17 GM POWD.PACK PO PRN (08:14)
[2019-01-27] MEDS: PANTOPRAZOLE 40 MG TABLET PO SCH (08:14)
[2019-01-27] MEDS: METOPROLOL TARTRATE 25 MG TAB PO SCH ×2 (08:14→21:18)
[2019-01-27] MEDS: CYCLOBENZAPRINE 10 MG TAB PO PRN (08:14)
[2019-01-27] MEDS: MEROPENEM 1 GM in SODIUM CHLORIDE 0.9% 100 ML IVPB SCH ×2 (08:15→16:02)
[2019-01-27] MEDS: DILTIAZEM CD 120 MG CAP.ER.24H PO SCH (08:16)
[2019-01-27] MEDS ORDERED: AZITHROMYCIN 500 MG TAB PO SCH (09:00)
--- NOTE | 2019-01-27 09:33 | XR ---
EXAMINATION TYPE: XR chest 1V portable DATE OF EXAM: 01/27/2019 COMPARISON: Prior chest x-ray 01/26/2019 HISTORY: Cough TECHNIQUE: Single frontal view of the chest is obtained. FINDINGS: Technique is somewhat apical lordotic and rotated. No evident airspace disease, pneumothor ax, or pleural effusion. Prominence of the pulmonary artery may be indicative of pulmonary artery hyp ertension. Heart size is stable. There are cardiac leads. IMPRESSION: No acute process. Findings are stable.
[2019-01-27] MEDS ORDERED: POTASSIUM CHLORIDE ER 20 MEQ TAB.ER PO STA (10:02)
[2019-01-27 11:54] LABS: Glucose,Whole Blood 77 mg/dL (75-99)
[2019-01-27] MEDS ORDERED: PIPERACILLIN-TAZOBACTAM 3.375 GM in SODIUM CHLORIDE 0.9% 100 ML IVPB SCH (12:00)
--- NOTE | 2019-01-27 13:14 | P.HPIM ---
History of Present Illness 83-year-old male was sent in from a subacute rehabilitation with compensative confusion. Patient had a limp lumbar spinal surgery for for abscess and patient has a PICC line and is receiving meropenem. Patient has a Sherwood catheter which was replaced urine is definitely abnormal because of the Sherwood catheter. There is no evidence of infection patient is an have any fever patient is an have leukocytosis. Patient is alert oriented 3 at this time. Patient was on meropenem which will be continued patient was started on Zosyn as well as was levofloxacin all of which will be discontinued there is no evidence of pneumonia there is no evidence of fear are tract infection either. His confusion appears to be secondary to multiple medications including baclofen l, morphine, fentanyl, or echo. Fentanyl is being continued morphine and baclofen are being discontinued patient is not in pain patient was also on Valium which is also being discontinued at this time. Patient was constipated because of multiple opiate medications was able to mow his bowel and does have good bowel sounds. Review of Systems REVIEW OF SYSTEMS: CONSTITUTIONAL: No fever, no malaise, no fatigue. HEENT: No recent visual problems or hearing problems. Denied any sore throat. CARDIOVASCULAR: No chest pain, orthopnea, PND, no palpitations, no syncope. PULMONARY: No shortness of breath, no cough, no hemoptysis. GASTROINTESTINAL: No diarrhea, no nausea, no vomiting, no abdominal pain. NEUROLOGICAL: No headaches, no weakness, no numbness. HEMATOLOGICAL: Denies any bleeding or petechiae. GENITOURINARY: Denies any burning micturition, frequency, or urgency. MUSCULOSKELETAL/RHEUMATOLOGICAL: Denies any joint pain, swelling, or any muscle pain. ENDOCRINE: Denies any polyuria or polydipsia. The rest of the 14-point review of systems is negative. Past Medical History Past Medical History: Atrial Flutter, Cancer, GERD/Reflux, Hyperlipidemia, Hypertension, Prostate Disorder, Thyroid Disorder Additional Past Medical History / Comment(s): SKIN CANCER, prostate & liver cancer. CURRENT UTI History of Any Multi-Drug Resistant Organisms: VRE Date of last positivie culture/infection: 12/19/18 MDRO Source:: Urine-VRE Past Surgical History: Adenoidectomy, Back Surgery, Hernia Repair, Joint Replacement, Prostate Surgery, Tonsillectomy Additional Past Surgical History / Comment(s): PARATHYROID SX. ESOPHAGEAL SX FOR ACHALASIA. VARICOSE VEIN SX. BILAT CATARAT SX. COLONOSCOPY Past Anesthesia/Blood Transfusion Reactions: No Reported Reaction Past Psychological History: No Psychological Hx Reported Additional Psychological History / Comment(s): retired lives with the . No tobacco use. No experience. No extensive travel. Smoking Status: Never smoker Past Alcohol Use History: Rare Past Drug Use History: None Reported - Past Family History Mother Family Medical History: Cancer Additional Family Medical History / Comment(s): COLON Medications and Allergies Home Medications Medication Instructions Recorded Confirmed Type Levothyroxine Sodium [Synthroid] 100 mcg PO DAILY 01/09/18 01/26/19 History Pantoprazole Sodium [Protonix] 40 mg PO DAILY 01/09/18 01/26/19 History Tamsulosin HCl [Flomax] 0.4 mg PO DAILY 01/09/18 01/26/19 History Acetaminophen Tab [Tylenol] 650 mg PO Q6HR PRN tab 10/25/18 01/26/19 Rx Cholecalciferol [Vitamin D3] 1,000 unit PO DAILY 12/02/18 01/26/19 History Polyethylene Glycol 3350 [Miralax] 17 gm PO DAILY PRN powd.pack 12/14/18 01/26/19 Rx Diazepam [Valium] 5 mg PO Q8H PRN tab 12/22/18 01/26/19 Rx Apixaban [Eliquis] 5 mg PO BID 01/26/19 01/26/19 History Artificial Tears-Hypromellose 1 drops BOTH EYES Q4H 01/26/19 01/26/19 History [Artificial Tear Drops] Baclofen [Lioresal] 10 mg PO BID 01/26/19 01/26/19 History Cyclobenzaprine [Flexeril] 10 mg PO TID PRN 01/26/19 01/26/19 History Diltiazem Cd [Cardizem Cd] 120 mg PO DAILY 01/26/19 01/26/19 History Ferrous Sulfate [Feosol] 325 mg PO DAILY 01/26/19 01/26/19 History Gabapentin [Neurontin] 300 mg PO TID 01/26/19 01/26/19 History Lactose-Reduced Food [Ensure Plus] 1 can PO BID 01/26/19 01/26/19 History Meropenem [Merrem] 1 gm IVPB Q8H 01/26/19 01/26/19 History Metoprolol Tartrate [Lopressor] 25 mg PO BID 01/26/19 01/26/19 History Morphine Sulfate Ir [MSIR] 15 mg PO TID PRN 01/26/19 01/26/19 History QUEtiapine [SEROquel] 25 mg PO HS 01/26/19 01/26/19 History fentaNYL 25MCG/HR PATCH [Duragesic 25 mcg TRANSDERM Q72H 01/26/19 01/26/19 History 25MCG/HR] Allergies Allergy/AdvReac Type Severity Reaction Status Date / Time No Known Allergies Allergy Verified 01/26/19 10:14 Physical Exam Vitals: Vital Signs Temp Pulse Pulse Pulse Resp BP BP 01/27/19 12:46 97.9 F 80 20 140/83 01/27/19 04:58 97.9 F 84 20 123/76 01/27/19 00:00 18 01/26/19 21:44 98.1 F 117 H 18 133/85 01/26/19 20:59 01/26/19 16:55 98.0 F 107 H 18 165/94 01/26/19 16:42 01/26/19 16:00 111 H 19 161/98 01/26/19 14:00 113 H 16 163/102 Pulse Ox 01/27/19 12:46 98 01/27/19 04:58 96 01/27/19 00:00 01/26/19 21:44 96 01/26/19 20:59 96 01/26/19 16:55 98 01/26/19 16:42 99 01/26/19 16:00 99 01/26/19 14:00 99 Intake and Output 01/26/19 01/27/19 01/27/19 21:59 06:59 14:59 Intake Total Output Total 700 Balance -700 Intake: Intake, IV Titration Amount Meropenem 1 gm In Sodium Chloride 0.9% 100 ml @ 200 mls/hr IVPB Q8HR [facility] Rx#:[id number] Piperacillin-Tazobactam 3 .375 gm In Sodium Chloride 0.9% 100 ml @ 25 mls/hr IVPB Q8HR [facility] Rx# :[id number] Sodium Chloride 0.9% 1, 000 ml @ 75 mls/hr IV . [id number] STA Rx#:[id number] Oral Output: Urine 700 Uretheral (Sherwood) Other: Voiding Method Indwelling Catheter # Bowel Movements 0 PHYSICAL EXAMINATION: GENERAL: The patient is alert and oriented x3, not in any acute distress. Well developed, well nourished. HEENT: Pupils are round and equally reacting to light. EOMI. No scleral icterus. No conjunctival pallor. Normocephalic, atraumatic. No pharyngeal erythema. No thyromegaly. CARDIOVASCULAR: S1 and S2 present. No murmurs, rubs, or gallops. PULMONARY: Chest is clear to auscultation, no wheezing or crackles. ABDOMEN: Soft, nontender, nondistended, normoactive bowel sounds. No palpable organomegaly. MUSCULOSKELETAL: No joint swelling or deformity. EXTREMITIES: No cyanosis, clubbing, or pedal edema. NEUROLOGICAL: Gross neurological examination did not reveal any new focal deficits. Does have chronic weakness SKIN: No rashes. Results CBC & Chem 7: 01/27/19 07:02 01/27/19 07:02 Labs: Abnormal Lab Results - Last 24 Hours (Table) 01/26/19 01/26/19 01/27/19 Range/Units 17:10 20:21 06:40 RBC (4.30-5.90) m/uL Hgb (13.0-17.5) gm/dL Hct (39.0-53.0) % RDW (11.5-15.5) % Potassium (3.5-5.1) mmol/L Chloride (98-107) mmol/L Creatinine (0.66-1.25) mg/dL POC Glucose (mg/dL) 111 H 140 H 101 H (75-99) mg/dL 01/27/19 01/27/19 Range/Units 07:02 07:02 RBC 3.72 L (4.30-5.90) m/uL Hgb 10.2 L (13.0-17.5) gm/dL Hct 31.9 L (39.0-53.0) % RDW 16.0 H (11.5-15.5) % Potassium 3.4 L (3.5-5.1) mmol/L Chloride 109 H (98-107) mmol/L Creatinine 0.56 L (0.66-1.25) mg/dL POC Glucose (mg/dL) (75-99) mg/dL Microbiology - Last 24 Hours (Table) 01/26/19 10:36 Urine Culture - Final Urine,Voided 01/26/19 10:07 Blood Culture - Preliminary Blood No Growth after 24 hours Thrombosis Risk Factor Assmnt - Choose All That Apply Each Factor Represents 1 point: History of prior major surgery (<1month), Medical pt on bed rest Each Risk Factor Represents 2 Points: Patient confined to bed, Malignancy Thrombosis Risk Factor Assessment Total Risk Factor Score: 6 Thrombosis Risk Factor Assessment Level: High Risk Assessment and Plan Plan: -Altered mental status, secondary to toxic encephalopathy from medications as mentioned above some of his medications will be discontinued all the fentanyl will be continued at this time. The patient is alert oriented 3 no there is no evidence that sepsis is causing these symptoms -Recent back surgery for abscess in the lumbar spine area meropenem will be continued -Gastroesophageal reflux disease -Atrial flutter: Presently rate controlled patient will be continued on Effexor been and rate control medications including diltiazem and metoprolol -Bipolar disorder -And prostatic hypertrophic -hypothyroidism
[2019-01-27 17:03] LABS: Glucose,Whole Blood 137 mg/dL (75-99)
[2019-01-27 18:03] LABS: Appearance,Urine Cloudy (Clear); Bilirubin,Urine Negative (Negative); Blood,Urine Large (Negative); Color,Urine Light Brown; Glucose,Urine (UA) Negative (Negative); Ketones,Urine Negative (Negative); Leukocyte Esterase,Urine Trace (Negative); Nitrite,Urine Negative (Negative); Protein,Urine 2+ (Negative); RBC,Urine >182 /hpf (0-5); Specific Gravity,Urine 1.013 (1.001-1.035); Urobilinogen,Urine <2.0 mg/dL (<2.0)
--- NOTE | 2019-01-27 18:50 | CONS ---
CONSULTATION DATE OF SERVICE: 01/27/2019. REASON FOR CONSULTATION: Diskitis. 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 The patient did have a laminectomy with wide decompression and bilateral partial medial and L4-5 and dissection for decompression at 4-[address] Kirby on 12/05/2018. Culture done in the OR for positive for E coli, which did show a significant resistant pattern, sensitive to meropenem, cefepime, and sulfasalazine. The patient's blood cultures done on 12/17/2018 were negative. [facility] The patient was sent to the ER at [facility] yesterday morning for evaluation of mental status changes. Apparently the patient pulled off his PICC line as well as Sherwood catheter. No clear history of any fever or chills. The patient was subsequently evaluated by the ER physician. No fever recorded on presentation. His white count was normal as well. The patient's BUN and creatinine were normal. Influenza serology was negative as well. The patient did have a Sherwood catheter placed and a peripheral IV. He was initially started on Zosyn, that was discontinued. The patient was started on meropenem 1 g every 8 hours. ID was consulted for further recommendation of antibiotic therapy. The patient currently denies any headache to me. No URI symptoms. No chest pain. No shortness of breath or abdominal pain. No diarrhea. Denies any worsening pain to his neck or lower back area. REVIEW OF SYSTEMS: Positive points have been mentioned in HPI. Otherwise the rest of the systems are negative. 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 PAST SURGICAL HISTORY: Adenoidectomy, back surgery, hernia repair, stent placement, prostate surgery and tonsillectomy. SOCIAL HISTORY: No history of smoking, drinking or drug use. FAMILY HISTORY: Mother with history of colon cancer. ALLERGIES: No known drug allergies. MEDICATIONS: The patient is currently on: 1. Tylenol. 2. Eliquis. 3. Vitamin D3. 4. Flexeril. 5. Cardizem. 6. ____. 7. Neurontin. 8. Meropenem 1 g every 8 hours. 9. Lopressor. 10.Protonix. 11.Seroquel. 12.Flomax. PHYSICAL EXAMINATION: Blood pressure is 140/83 with a pulse of 83, temperature 97.9, he is 98% on room air. GENERAL DESCRIPTION: An elderly male lying in bed in no distress. No tachypnea or accessory muscle of respiration use. HEENT: Shows slight pallor. No scleral icterus. Oral mucosa is dry. No pharyngeal erythema or thrush. NECK: Trachea central. No thyromegaly. LUNGS: Unlabored breathing. Clear to auscultation anteriorly. No wheeze or crackle. HEART: S1, S2. Regular rate and rhythm. ABDOMEN: Soft, no tenderness. No guarding or rigidity. EXTREMITIES: No edema of the feet. SKIN: No rash. BACK: On examination of the lumbar spine area, the patient did have multiple incisions which are currently healed with no swelling. There is no redness. No fluctuation or induration. NEUROLOGIC: The patient is currently awake, alert, oriented x3. Mood and affect normal. LABS: Influenza serology was negative. Hemoglobin 11.2, white count 8.1. BUN of 11, creatinine 0.56. Urine was bloody but complete UA was done. Chest x-ray no acute process. DIAGNOSTIC IMPRESSION AND PLAN: Patient admitted to the hospital with mental status changes. The patient is undergoing IV antibiotic therapy for L4-L5 diskitis with epidural abscess status post drainage with sepsis with multidrug resistant E coli with his mental status related to the medication effect. Clinically doubt any worsening infection, the patient is currently not running fever. Did not have any elevated white count. PLAN: 1. 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 2. The patient will continue meropenem 1 g every 8 hours. 3. The patient will be followed by Dr. Acosta with . All his questions and concerns were answered. MMODL / IJN: [id number] /
[2019-01-27 20:20] LABS: Glucose,Whole Blood 141 mg/dL (75-99)
[2019-01-27] MEDS: QUEtiapine 25 MG TAB PO SCH (21:19)
[2019-01-28] MEDS: ARTIFICIAL TEARS-HYPROMELLOSE DROPS 15 ML BTL BOTH EYES SCH ×7 (00:22→23:42)
[2019-01-28] MEDS: MEROPENEM 1 GM in SODIUM CHLORIDE 0.9% 100 ML IVPB SCH ×4 (00:26→23:42)
[2019-01-28] MEDS: LEVOTHYROXINE 100 MCG TAB PO SCH (06:06)
[2019-01-28 06:50] LABS: Glucose,Whole Blood 109 mg/dL (75-99)
[2019-01-28] MEDS: POLYETHYLENE GLYCOL 3350 17 GM POWD.PACK PO PRN (08:31)
[2019-01-28] MEDS: TAMSULOSIN 0.4 MG CAP.ER.24H PO SCH (08:31)
[2019-01-28] MEDS: CHOLECALCIFEROL 1,000 UNIT TAB PO SCH (08:31)
[2019-01-28] MEDS: GABAPENTIN 300 MG CAP PO SCH ×3 (08:31→21:14)
[2019-01-28] MEDS: CYCLOBENZAPRINE 10 MG TAB PO PRN (08:31)
[2019-01-28] MEDS: APIXABAN 5 MG TAB PO SCH ×2 (08:31→21:14)
[2019-01-28] MEDS: METOPROLOL TARTRATE 25 MG TAB PO SCH ×2 (08:31→21:09)
[2019-01-28] MEDS: FERROUS SULFATE 325 MG TAB PO SCH (08:31)
[2019-01-28] MEDS: PANTOPRAZOLE 40 MG TABLET PO SCH (08:31)
[2019-01-28] MEDS: DILTIAZEM CD 120 MG CAP.ER.24H PO SCH (08:36)
[2019-01-28 08:40] LABS: Anion Gap 8 mmol/L; Blood Urea Nitrogen 13 mg/dL (9-20); Calcium 10.1 mg/dL (8.4-10.2); Carbon Dioxide 26 mmol/L (22-30); Chloride 106 mmol/L (98-107); Glucose 124 mg/dL (74-99); Potassium 3.7 mmol/L (3.5-5.1); Sodium 140 mmol/L (137-145)
[2019-01-28 11:16] LABS: Anisocytosis Slight; Basophils % (A) 1 %; Eosinophils # (A) 0.3 k/uL (0-0.7); Eosinophils % (A) 4 %; HCT 33.5 % (39.0-53.0); HGB 10.7 gm/dL (13.0-17.5); Hypochromasia Slight; Lymphocytes # (A) 1.8 k/uL (1.0-4.8); Lymphocytes % (A) 27 %; MCH 27.7 pg (25.0-35.0); MCHC 31.8 g/dL (31.0-37.0); MCV 87.1 fL (80.0-100.0); Mean Platelet Volume 6.5; Monocytes # (A) 0.4 k/uL (0-1.0); Monocytes % (A) 6 %; Neutrophils # (A) 4.2 k/uL (1.3-7.7); Neutrophils % (A) 61 %; Platelet Count 350 k/uL (150-450); RBC 3.85 m/uL (4.30-5.90); RDW 16.1 % (11.5-15.5); WBC 6.9 k/uL (3.8-10.6)
[2019-01-28 11:34] LABS: Glucose,Whole Blood 104 mg/dL (75-99)
--- NOTE | 2019-01-28 16:03 | P.PN ---
Subjective Progress Note Date: 01/28/19 Very pleasant 83-year-old male is known to the infectious disease service because of his many bouts of urinary tract infection. The patient has a long-standing history of a very large prostate with difficulties with some urinary retention resulting urinary tract infection. Recent infections have been with E. coli with no oral options and is receiving a couple of courses of outpatient intravenous antibiotic therapy and has done well. In September he was hospitalized with some back pain evaluations were performed showing evidence of degenerative disease and with local care and treatment of urinary infection he improved. 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 Percutaneous biopsy at this facility was performed and was nondiagnostic. He was seen at [facility] also with nondiagnostic testing. He eventually was seen at [facility] where biopsy was successful of the liver which reveal evidence of adenocarcinoma, and there is also evidence of enlarged lymph nodes in the pelvis which were diagnostic of prostate carcinoma. The patient was receiving anticoagulation therapy and was in the midst of workup for his underlying cancers, outpatient PET scan to evaluate cancer revealed concerns to infection of the spine . workup was formed and eventually was with evidence of the extensive infection of the spine in November 2018. He was seen by orthopedic spine underwent the surgical debridement. The somewhat drug-resistant E. coli was isolated from the surgical specimens from the debridement of the spine and he has now been receiving his 8 weeks of intravenous antibiotic therapy for this extensive infection. The patient is having a moderate amount of pain to his spine but complaints of her ears more significant pain into his lower extremities with spasm. Does not appear to be classic sciatic type pain. At the moment the patient is comfortable, relates been eating and drinking well and having no fevers or chills. patient overhead a marked change of the status at the extended care facility where he became confused and removed his PICC line as well as his Sherwood catheter. Objective - Vital Signs Vital signs: Vital Signs Temp 97.4 F L 01/28/19 13:00 Pulse 83 01/28/19 13:00 Resp 18 01/28/19 15:02 BP 117/72 01/28/19 13:00 Pulse Ox 99 01/28/19 13:00 Intake & Output 03/10/19 03/11/19 03/11/19 18:59 06:59 18:59 Intake Total 1710 Output Total 0909 448 8003 Balance -1900 960 -1100 Weight 82.8 kg Intake: Intake, IV Titration 1000 Amount Meropenem 1 gm In Sodium 100 Chloride 0.9% 100 ml @ 200 mls/hr IVPB Q8HR [facility] Rx#:[id number] Sodium Chloride 0.9% 1, 900 000 ml @ 75 mls/hr IV . [id number] ST[facility] Rx#:[id number] Oral 710 Output: Urine 6006 [id number] [id number] Other: Voiding Method Indwelling Catheter Indwelling Catheter Indwelling Catheter # Bowel Movements 1 - Exam HEENT: Anicteric conjunctiva are pink and moist nasal mucosa grossly intact without significant lesions, there is no thrush. Neck: The neck is supple without significant lymphadenopathy or thyromegaly. Lungs: Good bilateral air entry without significant crackles or wheezing. There is no significant bronchial sounds. There is no egophony or dullness. Heart: Regular rate and rhythm with an audible S1-S2, no S3 no S4. There is no significant murmur click or rub, PMI was nondisplaced. Abdomen: Positive bowel sounds soft and nontender without palpable masses or organomegaly. There was no guarding or rebound. Extremities: The upper extremities have excellent pulses they are symmetric, no significant petechiae or telangiectasia. No splinter hemorrhages were noted. the lower extremities have evidence of the lower extremity edema no open ulcerations are seen Surgical wound to the spine is completely healed Neuro: Awake alert oriented to person place and time. There are no acute new gross focal sensory motor deficits.much more clear than was noted prior - Labs CBC & Chem 7: 01/28/19 08:05 01/28/19 08:05 Labs: Abnormal Lab Results - Last 24 Hours (Table) 01/27/19 01/27/19 01/27/19 Range/Units 16:52 20:18 Unknown RBC (4.30-5.90) m/uL Hgb (13.0-17.5) gm/dL Hct (39.0-53.0) % RDW (11.5-15.5) % Creatinine (0.66-1.25) mg/dL Glucose (74-99) mg/dL POC Glucose (mg/dL) 137 H 141 H (75-99) mg/dL C-Reactive Protein (<10.0) mg/L Urine Protein 2+ H (Negative) Urine Blood Large H (Negative) Ur Leukocyte Esterase Trace H (Negative) Urine RBC >182 H (0-5) /hpf Urine WBC 104 H (0-5) /hpf Urine WBC Clumps Few H (None) /hpf 01/28/19 01/28/19 01/28/19 Range/Units 06:49 08:05 08:05 RBC 3.85 L (4.30-5.90) m/uL Hgb 10.7 L (13.0-17.5) gm/dL Hct 33.5 L (39.0-53.0) % RDW 16.1 H (11.5-15.5) % Creatinine 0.57 L (0.66-1.25) mg/dL Glucose 124 H (74-99) mg/dL POC Glucose (mg/dL) 109 H (75-99) mg/dL C-Reactive Protein (<10.0) mg/L Urine Protein (Negative) Urine Blood (Negative) Ur Leukocyte Esterase (Negative) Urine RBC (0-5) /hpf Urine WBC (0-5) /hpf Urine WBC Clumps (None) /hpf 01/28/19 01/28/19 Range/Units 08:05 11:32 RBC (4.30-5.90) m/uL Hgb (13.0-17.5) gm/dL Hct (39.0-53.0) % RDW (11.5-15.5) % Creatinine (0.66-1.25) mg/dL Glucose (74-99) mg/dL POC Glucose (mg/dL) 104 H (75-99) mg/dL C-Reactive Protein 17.3 H (<10.0) mg/L Urine Protein (Negative) Urine Blood (Negative) Ur Leukocyte Esterase (Negative) Urine RBC (0-5) /hpf Urine WBC (0-5) /hpf Urine WBC Clumps (None) /hpf Microbiology - Last 24 Hours (Table) 01/26/19 10:07 Blood Culture - Preliminary Blood No Growth after 48 hours 01/27/19 Unknown Urine Culture - Preliminary Urine,Clean Catch 01/26/19 10:36 Urine Culture - Final Urine,Voided Laboratory Results WBC 6.9 k/uL (3.8-10.6) 01/28/19 08:05 RBC 3.85 m/uL (4.30-5.90) L 01/28/19 08:05 Hgb 10.7 gm/dL (13.0-17.5) L 01/28/19 08:05 Hct 33.5 % (39.0-53.0) L 01/28/19 08:05 MCV 87.1 fL (80.0-100.0) 01/28/19 08:05 MCH 27.7 pg (25.0-35.0) 01/28/19 08:05 MCHC 31.8 g/dL (31.0-37.0) 01/28/19 08:05 RDW 16.1 % (11.5-15.5) H 01/28/19 08:05 Plt Count 350 k/uL (150-450) 01/28/19 08:05 Neutrophils % 61 % 01/28/19 08:05 Lymphocytes % 27 % 01/28/19 08:05 Monocytes % 6 % 01/28/19 08:05 Eosinophils % 4 % 01/28/19 08:05 Basophils % 1 % 01/28/19 08:05 Neutrophils # 4.2 k/uL (1.3-7.7) 01/28/19 08:05 Lymphocytes # 1.8 k/uL (1.0-4.8) 01/28/19 08:05 Monocytes # 0.4 k/uL (0-1.0) 01/28/19 08:05 Eosinophils # 0.3 k/uL (0-0.7) 01/28/19 08:05 Basophils # 0.0 k/uL (0-0.2) 01/28/19 08:05 Hypochromasia Slight 01/28/19 08:05 Anisocytosis Slight 01/28/19 08:05 Sodium 140 mmol/L (137-145) 01/28/19 08:05 Potassium 3.7 mmol/L (3.5-5.1) 01/28/19 08:05 Chloride 106 mmol/L (98-107) 01/28/19 08:05 Carbon Dioxide 26 mmol/L (22-30) 01/28/19 08:05 Anion Gap 8 mmol/L 01/28/19 08:05 BUN 13 mg/dL (9-20) 01/28/19 08:05 Creatinine 0.57 mg/dL (0.66-1.25) L 01/28/19 08:05 Est GFR (CKD-EPI)AfAm >90 (>60 ml/min/1.73 sqM) 01/28/19 08:05 Est GFR (CKD-EPI)NonAf >90 (>60 ml/min/1.73 sqM) 01/28/19 08:05 Glucose 124 mg/dL (74-99) H 01/28/19 08:05 POC Glucose (mg/dL) 104 mg/dL (75-99) H 01/28/19 11:32 POC Glu Health Inspector Food ID Maryam Painter 01/28/19 11:32 Lactic Ac Sepsis Rflx Y 01/26/19 10:57 Plasma Lactic Acid Zane 1.1 mmol/L (0.7-2.0) 01/26/19 14:45 Calcium 10.1 mg/dL (8.4-10.2) 01/28/19 08:05 Magnesium 1.9 mg/dL (1.6-2.3) 01/26/19 10:07 Total Bilirubin 0.8 mg/dL (0.2-1.3) 01/26/19 10:07 AST 22 U/L (17-59) 01/26/19 10:07 ALT 25 U/L (21-72) 01/26/19 10:07 Alkaline Phosphatase 140 U/L (38-126) H 01/26/19 10:07 Ammonia 24 umol/L (<30) 01/26/19 10:07 Total Creatine Kinase 22 U/L (55-170) L 01/26/19 10:07 CK-MB (CK-2) 0.3 ng/mL (0.0-2.4) 01/26/19 10:07 CK-MB (CK-2) Rel Index 1.4 01/26/19 10:07 Troponin I <0.012 ng/mL (0.000-0.034) 01/26/19 10:07 C-Reactive Protein 17.3 mg/L (<10.0) H 01/28/19 08:05 Total Protein 7.6 g/dL (6.3-8.2) 01/26/19 10:07 Albumin 3.8 g/dL (3.5-5.0) 01/26/19 10:07 Amylase 39 U/L (30-110) 01/26/19 10:07 Lipase 64 U/L (23-300) 01/26/19 10:07 TSH 4.970 mIU/L (0.465-4.680) H 01/26/19 10:07 Free T4 1.65 ng/dL (0.78-2.19) 01/26/19 10:07 Urine Color Light Brown 01/27/19 Unknown Urine Appearance Cloudy (Clear) 01/27/19 Unknown Urine pH 7.0 (5.0-8.0) 01/27/19 Unknown Ur Specific Hemphill 1.013 (1.001-1.035) 01/27/19 Unknown Urine Protein 2+ (Negative) H 01/27/19 Unknown Urine Glucose (UA) Negative (Negative) 01/27/19 Unknown Urine Ketones Negative (Negative) 01/27/19 Unknown Urine Blood Large (Negative) H 01/27/19 Unknown Urine Nitrite Negative (Negative) 01/27/19 Unknown Urine Bilirubin Negative (Negative) 01/27/19 Unknown Urine Urobilinogen <2.0 mg/dL (<2.0) 01/27/19 Unknown Ur Leukocyte Esterase Trace (Negative) H 01/27/19 Unknown Urine RBC >182 /hpf (0-5) H 01/27/19 Unknown Urine WBC 104 /hpf (0-5) H 01/27/19 Unknown Urine WBC Clumps Few /hpf (None) H 01/27/19 Unknown Influenza Type A RNA Not Detected (Not Detectd) 01/26/19 10:19 Influenza Type B (PCR) Not Detected (Not Detectd) 01/26/19 10:19 Microbiology 01/26/19 10:07 Blood Blood Culture - Preliminary No Growth after 48 hours 01/27/19 Unknown Urine,Clean Catch Urine Culture - Preliminary 01/26/19 10:36 Urine,Voided Urine Culture - Final Assessment and Plan (1) Urinary retention Current Visit: Yes Status: Acute Code(s): R33.9 - RETENTION OF URINE, UNSPECIFIED SNOMED Code(s): 251350119 (2) Discitis of lumbar region Narrative/Plan: 83 -year-old male presents from extended care facility with altered mental status. The patient has a very extensive past medical history is noted by the recent interventions that include evidence of adenocarcinoma of his liver, prostate carcinoma within his lymph nodes of the pelvis and the recent osteomyelitis and discitis of the lumbar spine. He is now had 8 weeks of intravenous antibiotic therapy. Will obtain sed rate and CRP to evaluate if end of therapy as possible. He is having much improved mental status, there has been significant alteration of his many medications which potentially could have precipitated the altered mental status. There is evidence of hematuria at this point in time and the Sherwood catheter, occurring status post self removal of the catheter. Urine culture from 01/26 is negative, 01/27 is pending. Blood cultures are negative so far. Continue meropenem for this point in time. Would not plan on placing another PICC line at this time since the patient should be at the end of his IV antibiotic therapy. He did have a bout of C. diff does not seem to have severe diarrhea at this time. No evidence of pneumonia at this time. Current Visit: No Status: Acute Code(s): M46.46 - DISCITIS, UNSPECIFIED, LUMBAR REGION SNOMED Code(s): 150206389
[2019-01-28 16:59] LABS: Glucose,Whole Blood 119 mg/dL (75-99)
[2019-01-28] MEDS: MAGNESIUM SULFATE-D5W PMX 1 GM in DEXTROSE/WATER 1 100ML.BAG IVPB SCH ×2 (17:29→19:08)
[2019-01-28] MEDS: QUEtiapine 25 MG TAB PO SCH (21:14)
[2019-01-29] MEDS: ARTIFICIAL TEARS-HYPROMELLOSE DROPS 15 ML BTL BOTH EYES SCH ×6 (04:14→23:54)
[2019-01-29] MEDS: LEVOTHYROXINE 100 MCG TAB PO SCH (05:45)
[2019-01-29] MEDS: FERROUS SULFATE 325 MG TAB PO SCH (08:46)
[2019-01-29] MEDS: MEROPENEM 1 GM in SODIUM CHLORIDE 0.9% 100 ML IVPB SCH ×3 (08:46→23:55)
[2019-01-29] MEDS: PANTOPRAZOLE 40 MG TABLET PO SCH (08:46)
[2019-01-29] MEDS: APIXABAN 5 MG TAB PO SCH ×2 (08:46→18:32)
[2019-01-29] MEDS: METOPROLOL TARTRATE 25 MG TAB PO SCH ×2 (08:47→19:59)
[2019-01-29] MEDS: DILTIAZEM CD 120 MG CAP.ER.24H PO SCH (08:47)
[2019-01-29] MEDS: TAMSULOSIN 0.4 MG CAP.ER.24H PO SCH (08:47)
[2019-01-29] MEDS: GABAPENTIN 300 MG CAP PO SCH ×3 (08:47→19:59)
[2019-01-29] MEDS: CHOLECALCIFEROL 1,000 UNIT TAB PO SCH (08:47)
[2019-01-29 09:05] LABS: Anion Gap 8 mmol/L; Blood Urea Nitrogen 12 mg/dL (9-20); Calcium 9.7 mg/dL (8.4-10.2); Carbon Dioxide 26 mmol/L (22-30); Chloride 106 mmol/L (98-107); Glucose 127 mg/dL (74-99); Potassium 3.9 mmol/L (3.5-5.1); Sodium 140 mmol/L (137-145)
--- NOTE | 2019-01-29 12:25 | P.PN ---
Subjective Progress Note Date: 01/29/19 Very pleasant 83-year-old male is known to the infectious disease service because of his many bouts of urinary tract infection. The patient has a long-standing history of a very large prostate with difficulties with some urinary retention resulting urinary tract infection. Recent infections have been with E. coli with no oral options and is receiving a couple of courses of outpatient intravenous antibiotic therapy and has done well. In September he was hospitalized with some back pain evaluations were performed showing evidence of degenerative disease and with local care and treatment of urinary infection he improved. 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 Percutaneous biopsy at this facility was performed and was nondiagnostic. He was seen at [facility] also with nondiagnostic testing. He eventually was seen at [facility] where biopsy was successful of the liver which reveal evidence of adenocarcinoma, and there is also evidence of enlarged lymph nodes in the pelvis which were diagnostic of prostate carcinoma. The patient was receiving anticoagulation therapy and was in the midst of workup for his underlying cancers, outpatient PET scan to evaluate cancer revealed concerns to infection of the spine . workup was formed and eventually was with evidence of the extensive infection of the spine in November 2018. He was seen by orthopedic spine underwent the surgical debridement. The somewhat drug-resistant E. coli was isolated from the surgical specimens from the debridement of the spine and he has now been receiving his 8 weeks of intravenous antibiotic therapy for this extensive infection. The patient is having a moderate amount of pain to his spine but complaints of her ears more significant pain into his lower extremities with spasm. Does not appear to be classic sciatic type pain. At the moment the patient is comfortable, relates been eating and drinking well and having no fevers or chills. patient overhead a marked change of the status at the extended care facility where he became confused and removed his PICC line as well as his Sherwood catheter. 01/29/2019 patient is improving today. He relates after the magnesium infusion yesterday severe muscle spasms have improved. Does relate these still having some pain and spasm of the left leg but overall feels slightly better today. No fevers or chills. His mentation is not close to baseline. He is no longer confused. is present and wonders if he'll need to see a urologist out of Hospital. Objective - Vital Signs Vital signs: Vital Signs Temp 97.6 F 01/29/19 05:00 Pulse 93 01/29/19 05:00 Resp 16 01/29/19 05:00 BP 137/85 01/29/19 05:00 Pulse Ox 94 L 01/29/19 05:00 Intake & Output 01/28/19 01/29/19 01/29/19 18:59 06:59 18:59 Intake Total 1440 Output Total 1100 2600 Balance -1100 -1160 Intake: Intake, IV Titration 1200 Amount Magnesium Sulfate-D5w Pmx 200 1 gm In Dextrose/Water 1 100ml.bag @ 100 mls/hr IVPB Q1H [facility] Rx#: [id number] Meropenem 1 gm In Sodium 100 Chloride 0.9% 100 ml @ 200 mls/hr IVPB Q8HR [facility] Rx#:[id number] Sodium Chloride 0.9% 1, 900 000 ml @ 75 mls/hr IV . [id number] [facility] Rx#:[id number] Oral 240 Output: Urine 1100 2600 Uretheral (Sherwood) 2600 Other: Voiding Method Indwelling Catheter Indwelling Catheter Indwelling Catheter - Exam HEENT: Anicteric conjunctiva are pink and moist nasal mucosa grossly intact without significant lesions, there is no thrush. Neck: The neck is supple without significant lymphadenopathy or thyromegaly. Lungs: Good bilateral air entry without significant crackles or wheezing. There is no significant bronchial sounds. There is no egophony or dullness. Heart: Regular rate and rhythm with an audible S1-S2, no S3 no S4. There is no significant murmur click or rub, PMI was nondisplaced. Abdomen: Positive bowel sounds soft and nontender without palpable masses or organomegaly. There was no guarding or rebound. Extremities: The upper extremities have excellent pulses they are symmetric, no significant petechiae or telangiectasia. No splinter hemorrhages were noted. the lower extremities have evidence of the lower extremity edema no open ulcerations are seen Surgical wound to the spine is completely healed Neuro: Awake alert oriented to person place and time. There are no acute new gross focal sensory motor deficits. Pleased that the muscle spasms have improved. - Labs CBC & Chem 7: 01/28/19 08:05 01/29/19 08:26 Labs: Abnormal Lab Results - Last 24 Hours (Table) 01/28/19 01/28/19 01/28/19 Range/Units 08:05 08:05 16:58 ESR 61 H (0-15) mm/hr Creatinine (0.66-1.25) mg/dL Glucose (74-99) mg/dL POC Glucose (mg/dL) 119 H (75-99) mg/dL C-Reactive Protein 17.3 H (<10.0) mg/L 01/29/19 Range/Units 08:26 ESR (0-15) mm/hr Creatinine 0.57 L (0.66-1.25) mg/dL Glucose 127 H (74-99) mg/dL POC Glucose (mg/dL) (75-99) mg/dL C-Reactive Protein (<10.0) mg/L Microbiology - Last 24 Hours (Table) 01/27/19 Unknown Urine Culture - Final Urine,Clean Catch 01/26/19 10:07 Blood Culture - Preliminary Blood No Growth after 48 hours Laboratory Results WBC 6.9 k/uL (3.8-10.6) 01/28/19 08:05 RBC 3.85 m/uL (4.30-5.90) L 01/28/19 08:05 Hgb 10.7 gm/dL (13.0-17.5) L 01/28/19 08:05 Hct 33.5 % (39.0-53.0) L 01/28/19 08:05 MCV 87.1 fL (80.0-100.0) 01/28/19 08:05 MCH 27.7 pg (25.0-35.0) 01/28/19 08:05 MCHC 31.8 g/dL (31.0-37.0) 01/28/19 08:05 RDW 16.1 % (11.5-15.5) H 01/28/19 08:05 Plt Count 350 k/uL (150-450) 01/28/19 08:05 Neutrophils % 61 % 01/28/19 08:05 Lymphocytes % 27 % 01/28/19 08:05 Monocytes % 6 % 01/28/19 08:05 Eosinophils % 4 % 01/28/19 08:05 Basophils % 1 % 01/28/19 08:05 Neutrophils # 4.2 k/uL (1.3-7.7) 01/28/19 08:05 Lymphocytes # 1.8 k/uL (1.0-4.8) 01/28/19 08:05 Monocytes # 0.4 k/uL (0-1.0) 01/28/19 08:05 Eosinophils # 0.3 k/uL (0-0.7) 01/28/19 08:05 Basophils # 0.0 k/uL (0-0.2) 01/28/19 08:05 Hypochromasia Slight 01/28/19 08:05 Anisocytosis Slight 01/28/19 08:05 ESR 61 mm/hr (0-15) H 01/28/19 08:05 Sodium 140 mmol/L (137-145) 01/29/19 08:26 Potassium 3.9 mmol/L (3.5-5.1) 01/29/19 08:26 Chloride 106 mmol/L (98-107) 01/29/19 08:26 Carbon Dioxide 26 mmol/L (22-30) 01/29/19 08:26 Anion Gap 8 mmol/L 01/29/19 08:26 BUN 12 mg/dL (9-20) 01/29/19 08:26 Creatinine 0.57 mg/dL (0.66-1.25) L 01/29/19 08:26 Est GFR (CKD-EPI)AfAm >90 (>60 ml/min/1.73 sqM) 01/29/19 08:26 Est GFR (CKD-EPI)NonAf >90 (>60 ml/min/1.73 sqM) 01/29/19 08:26 Glucose 127 mg/dL (74-99) H 01/29/19 08:26 POC Glucose (mg/dL) 119 mg/dL (75-99) H 01/28/19 16:58 POC Glu Irrigation Equipment Installer ID Anastasiya Burks 01/28/19 16:58 Lactic Ac Sepsis Rflx Y 01/26/19 10:57 Plasma Lactic Acid Zane 1.1 mmol/L (0.7-2.0) 01/26/19 14:45 Calcium 9.7 mg/dL (8.4-10.2) 01/29/19 08:26 Magnesium 1.9 mg/dL (1.6-2.3) 01/26/19 10:07 Total Bilirubin 0.8 mg/dL (0.2-1.3) 01/26/19 10:07 AST 22 U/L (17-59) 01/26/19 10:07 ALT 25 U/L (21-72) 01/26/19 10:07 Alkaline Phosphatase 140 U/L (38-126) H 01/26/19 10:07 Ammonia 24 umol/L (<30) 01/26/19 10:07 Total Creatine Kinase 22 U/L (55-170) L 01/26/19 10:07 CK-MB (CK-2) 0.3 ng/mL (0.0-2.4) 01/26/19 10:07 CK-MB (CK-2) Rel Index 1.4 01/26/19 10:07 Troponin I <0.012 ng/mL (0.000-0.034) 01/26/19 10:07 C-Reactive Protein 17.3 mg/L (<10.0) H 01/28/19 08:05 Total Protein 7.6 g/dL (6.3-8.2) 01/26/19 10:07 Albumin 3.8 g/dL (3.5-5.0) 01/26/19 10:07 Amylase 39 U/L (30-110) 01/26/19 10:07 Lipase 64 U/L (23-300) 01/26/19 10:07 TSH 4.970 mIU/L (0.465-4.680) H 01/26/19 10:07 Free T4 1.65 ng/dL (0.78-2.19) 01/26/19 10:07 Urine Color Light Brown 01/27/19 Unknown Urine Appearance Cloudy (Clear) 01/27/19 Unknown Urine pH 7.0 (5.0-8.0) 01/27/19 Unknown Ur Specific [place] 1.013 (1.001-1.035) 01/27/19 Unknown Urine Protein 2+ (Negative) H 01/27/19 Unknown Urine Glucose (UA) Negative (Negative) 01/27/19 Unknown Urine Ketones Negative (Negative) 01/27/19 Unknown Urine Blood Large (Negative) H 01/27/19 Unknown Urine Nitrite Negative (Negative) 01/27/19 Unknown Urine Bilirubin Negative (Negative) 01/27/19 Unknown Urine Urobilinogen <2.0 mg/dL (<2.0) 01/27/19 Unknown Ur Leukocyte Esterase Trace (Negative) H 01/27/19 Unknown Urine RBC >182 /hpf (0-5) H 01/27/19 Unknown Urine WBC 104 /hpf (0-5) H 01/27/19 Unknown Urine WBC Clumps Few /hpf (None) H 01/27/19 Unknown Influenza Type A RNA Not Detected (Not Detectd) 01/26/19 10:19 Influenza Type B (PCR) Not Detected (Not Detectd) 01/26/19 10:19 Microbiology 01/27/19 Unknown Urine,Clean Catch Urine Culture - Final 01/26/19 10:07 Blood Blood Culture - Preliminary No Growth after 48 hours 01/26/19 10:36 Urine,Voided Urine Culture - Final Assessment and Plan (1) Urinary retention Current Visit: Yes Status: Acute Code(s): R33.9 - RETENTION OF URINE, UNSPECIFIED SNOMED Code(s): 988804899 (2) Discitis of lumbar region Narrative/Plan: 83 -year-old male presents [facility] with altered mental status. The patient has a very extensive past medical history is noted by the recent interventions that include evidence of adenocarcinoma of his liver, prostate carcinoma within his lymph nodes of the pelvis and the recent osteomyelitis and discitis of the lumbar spine. He is now had 8 weeks of intravenous antibiotic therapy. Will obtain sed rate and CRP to evaluate if end of therapy as possible. He is having much improved mental status, there has been significant alteration of his many medications which potentially could have precipitated the altered mental status. There is evidence of hematuria at this point in time and the Sherwood catheter, occurring status post self removal of the catheter. Urine culture from 01/26 is negative, 01/27 is pending. Blood cultures are negative so far. Continue meropenem for this point in time. Would not plan on placing another PICC line at this time since the patient should be at the end of his IV antibiotic therapy. He did have a bout of C. diff does not seem to have severe diarrhea at this time. No evidence of pneumonia at this time. 01/29/2019 patient is feeling better except the leg pains. Mental status foy normalized and it appears she is ready to transfer back to rehab. Will likely need to have a outpatient urology consult regarding the difficulties with the remove Sherwood catheter. He should follow-up in the infectious disease office in 2 weeks after his discharge for evaluation of his antibiotic therapy. Current Visit: No Status: Acute Code(s): M46.46 - DISCITIS, UNSPECIFIED, LUMBAR REGION SNOMED Code(s): 142221534
[2019-01-29] MEDS ORDERED: LEUPROLIDE ACET 7.5 MG SYRINGEKIT IM ONE (13:00)
[2019-01-29] MEDS: CYCLOBENZAPRINE 10 MG TAB PO PRN (18:17)
--- NOTE | 2019-01-29 18:41 | P.CONS ---
History of Present Illness - Reason for Consult Consult date: 01/29/19 Prostate and Hepatocellular cancer Requesting physician: Osbaldo Stark - Chief Complaint mental status changes - History of Present Illness The patient is an 83-year-old white male, with a compensated recent past medical history. 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 Doppler of the lower extremities and CTA were negative. Other findings included presence of a 4 cm mass in the right lobe of the liver and marked prostatic enlargement. The patient actually had a known history of prostate enlargement, and recurrent urinary infections with multiple biopsies of the prostate in the past being negative. MRI of the liver confirmed the presence of a 4 cm mass in the right lobe, along with a smaller 2 cm mass in the same lobe. The patient had a liver biopsy that was unfortunately nondiagnostic. He was transferred to [address] [place] [address] and had repeat biopsy there, that was also nondiagnostic. The patient was subsequently discharged on Xarelto. A repeat biopsy was continued at [facility], and was done with temporary inpatient admission with a switch to IV heparin. This was performed on 11/09/18. Liver biopsy was positive for well-differentiated hepatocellular carcinoma. In addition interventional radiology at the time noted a suspicious lymph node in the left presacral periprostatic area. This was also biopsied, and showed prostate cancer. PSA in 10/07 had been 21.1. AFP was normal. The patient was seen in the office last week, with repeat labs showing essentially similar findings. The patient had continued to have lower back pain, with MRI during his 10/07 admission showing evidence of degenerative disease but no evidence of malignancy. He had been noted to have moderate to severe disc disease at L5-6, that is felt to be the source of this back pain. When seen in the office he was complaining of some increase in the back pain, worsened by weightbearing, as his main symptom. He was referred to pain management, and was waiting on a ppointment to see Dr. Ocampo. The patient also had a PET scan done on 12/01/18 for completion of staging. He came into the hospital because of progressive increase in back pain to where he was having difficulty in transferring or bearing weight. When laying down, he noted no weakness in his legs, loss of sensation, or loss of bowel or bladder control. He was therefore admitted for further management. CT of the lumbar spine done last admission, concern for destructive lesion versus worsening abscess. He underwent surgical procedure and in rehab improving. He presented on 01/26/19 wityh increased confusion and urinary retention, he has since improved on antibiotics and planning on transferring back to rehab. Review of Systems A 14 point review of systems assessed and completed and all negative except HPI. Past Medical History Past Medical History: Atrial Flutter, Cancer, GERD/Reflux, Hyperlipidemia, Hypertension, Prostate Disorder, Thyroid Disorder Additional Past Medical History / Comment(s): SKIN CANCER, prostate & liver cancer. 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 ESOPHAGEAL SX FOR ACHALASIA. VARICOSE VEIN SX. BILAT CATARAT SX. COLONOSCOPY Past Anesthesia/Blood Transfusion Reactions: No Reported Reaction Past Psychological History: No Psychological Hx Reported Additional Psychological History / Comment(s): retired lives with the . No tobacco use. No experience. No extensive travel. Smoking Status: Never smoker Past Alcohol Use History: Rare Past Drug Use History: None Reported - Past Family History Mother Family Medical History: Cancer Additional Family Medical History / Comment(s): COLON Medications and Allergies Home Medications Medication Instructions Recorded Confirmed Type Levothyroxine Sodium [Synthroid] 100 mcg PO DAILY 01/09/18 01/26/19 History Pantoprazole Sodium [Protonix] 40 mg PO DAILY 01/09/18 01/26/19 History Tamsulosin HCl [Flomax] 0.4 mg PO DAILY 01/09/18 01/26/19 History Acetaminophen Tab [Tylenol] 650 mg PO Q6HR PRN tab 10/25/18 01/26/19 Rx Cholecalciferol [Vitamin D3] 1,000 unit PO DAILY 12/02/18 01/26/19 History Polyethylene Glycol 3350 [Miralax] 17 gm PO DAILY PRN powd.pack 12/14/18 01/26/19 Rx Diazepam [Valium] 5 mg PO Q8H PRN tab 12/22/18 01/26/19 Rx Apixaban [Eliquis] 5 mg PO BID 01/26/19 01/26/19 History Artificial Tears-Hypromellose 1 drops BOTH EYES Q4H 01/26/19 01/26/19 History [Artificial Tear Drops] Cyclobenzaprine [Flexeril] 10 mg PO TID PRN 01/26/19 01/26/19 History Diltiazem Cd [Cardizem CD] 120 mg PO DAILY 01/26/19 01/26/19 History Ferrous Sulfate [Iron (65 MG 325 mg PO DAILY 01/26/19 01/26/19 History Elemental)] Gabapentin [Neurontin] 300 mg PO TID 01/26/19 01/26/19 History Lactose-Reduced Food [Ensure Plus] 1 can PO BID 01/26/19 01/26/19 History Meropenem [Merrem] 1 gm IVPB Q8H 01/26/19 01/26/19 History Metoprolol Tartrate [Lopressor] 25 mg PO BID 01/26/19 01/26/19 History QUEtiapine [SEROquel] 25 mg PO HS 01/26/19 01/26/19 History fentaNYL 25MCG/HR PATCH [Duragesic 25 mcg TRANSDERM Q72H 01/26/19 01/26/19 History 25MCG/HR] Meropenem [Merrem] 1 gm IVPB Q8H #42 vial 01/29/19 Rx Allergies Allergy/AdvReac Type Severity Reaction Status Date / Time No Known Allergies Allergy Verified 01/26/19 10:14 Physical Exam Vitals: Vital Signs Temp Pulse Resp BP Pulse Ox 01/29/19 12:00 97.1 F L 79 16 128/76 94 L 01/29/19 05:00 97.6 F 93 16 137/85 94 L 01/28/19 21:00 97.1 F L 95 16 103/55 93 L 01/28/19 15:02 18 Intake and Output 01/28/19 01/29/19 01/29/19 22:59 06:59 14:59 Intake Total 320 1120 Output Total 2600 Balance 320 -1480 Intake: Intake, IV Titration 200 1000 Amount Magnesium Sulfate-D5w Pmx 200 1 gm In Dextrose/Water 1 100ml.bag @ 100 mls/hr IVPB Q1H [facility] Rx#: [id number] Meropenem 1 gm In Sodium 100 Chloride 0.9% 100 ml @ 200 mls/hr IVPB Q8HR [facility] Rx#:[id number] Sodium Chloride 0.9% 1, 900 000 ml @ 75 mls/hr IV . [id number] [facility] Rx#:[id number] Oral 120 120 Output: Urine 2600 Uretheral (Sherwood) 2600 Other: Voiding Method Indwelling Catheter Indwelling Catheter Gen: Alert and Oriented, No acute Distress Head NC/NT Neck Supple Lungs: CTA Bilateral nO increased Effort Heart RRR, S1s2 Abdomen: Soft ND Ext No edema Results CBC & Chem 7: 01/28/19 08:05 01/29/19 08:26 Labs: Abnormal Lab Results - Last 24 Hours (Table) 01/28/19 01/28/19 01/28/19 Range/Units 08:05 08:05 16:58 ESR 61 H (0-15) mm/hr Creatinine (0.66-1.25) mg/dL Glucose (74-99) mg/dL POC Glucose (mg/dL) 119 H (75-99) mg/dL C-Reactive Protein 17.3 H (<10.0) mg/L 01/29/19 Range/Units 08:26 ESR (0-15) mm/hr Creatinine 0.57 L (0.66-1.25) mg/dL Glucose 127 H (74-99) mg/dL POC Glucose (mg/dL) (75-99) mg/dL C-Reactive Protein (<10.0) mg/L Microbiology - Last 24 Hours (Table) 01/26/19 10:07 Blood Culture - Preliminary Blood No Growth after 72 hours 01/27/19 Unknown Urine Culture - Final Urine,Clean Catch Assessment and Plan Plan: Assessment and Plan Mental Status Changes: - Improved since admission and antibiotics - Following with Dr. Acosta ID Intractable low back pain - related to Disckitis and Abscess status post Surgical Intervention with Ortho spine - Unfortunately, his overall discomfort has worsened rather than improved. CT abd/Pelvis revealed increased Spinal Abscess from 12/20/18. - Antibiotics are continued and Ortho Surgery followed, when no further intervention was able to be done he was transferred to [facility] for neurosurgical consultation and intervention in lydia he underwent further surgical intervention, antibiotic management and then discharged to Sub-Acute Rehab. 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 - Maintained on Xarelto Hepatocellular carcinoma - Appears to be localized likely candidate chemoembolization of liver - After he completes rehabiliation at sub acute center he will need to be reffered to Hepatobiliary center at [facility] for Chemoembolization of his newly diagnosed HCC - This has been delayed secondary to other multiple acute medical issues he has encountered the past couple months, will recheck AFP, not elevated on diagnosis Prostate cancer - As noted the patient had multiple prior prostate biopsies that were negative. - The diagnosis was made via lymph node biopsy two months ago with IR out of [facility] - PSA has been stable in the low 20 range. With delays in being able to address this prostate cancer will recheck PSA today - He did receive a one month dose of Lupron on 12/18/18, therefore while he is admitted we will give his second dose (Ordered for today 01/29/19) Osteomyelitis/Diskitis: Resolving - Status Post Surgery number one for 12/05/18. - ID is following and Antibiotics at discharge per Dr. Acosta - Transferred for further surgical intervention to [facility] for recurrent/worsening abscesss on CT - Status Post intervention and antibiotics and been undergoing therapy at [facility] UTI - Recurrent: - Recurrent Resistent UTI - COntinued antibiotics, Dr. Acosta to Manage. Recent C-Diff Colitis - - Treated by Infectious Disease last admission Physician Attestation I have completed the full history and physical and developed the complete impression and plan, agree with dictation, dictated as a scribe.
[2019-01-29] MEDS: QUEtiapine 25 MG TAB PO SCH (19:59)
--- NOTE | 2019-01-29 23:59 | P.PN ---
Subjective Progress Note Date: 01/29/19 Principal diagnosis: Altered mental status possible toxic encephalopathy Recent discitis/epidural abscess currently on IV antibiotics Hematuria likely traumatic as the patient pulled out Sherwood catheter. 83-year-old male was sent in from a subacute rehabilitation with compensative confusion. Patient had a limp lumbar spinal surgery for for abscess and patient has a PICC line and is receiving meropenem. Patient has a Sherwood catheter which was replaced urine is definitely abnormal because of the Sherwood catheter. There is no evidence of infection patient is an have any fever patient is an have leukocytosis. Patient is alert oriented 3 at this time. Patient was on meropenem which will be continued patient was started on Zosyn as well as was levofloxacin all of which will be discontinued there is no evidence of pneumonia there is no evidence of fear are tract infection either. His confusion appears to be secondary to multiple medications including baclofen l, morphine, fentanyl, or echo. Fentanyl is being continued morphine and baclofen are being discontinued patient is not in pain patient was also on Valium which is also being discontinued at this time. Patient was constipated because of multiple opiate medications was able to mow his bowel and does have good bowel sounds. 01/28/2019 Patient is more awake and oriented today. Currently on meropenem for up to 6 weeks due to discitis/epidural abscess. ID is on board. Repeat urine culture was ordered with clean cath due to recent cultures showing VRE. Awaiting final culture report. Pending ID recommendations regarding continuation of antibiotic course. Patient has been afebrile. No nausea vomiting or abdominal pain. No chest pain or shortness of breath. Patient does have Sherwood cath in place and urinate still blood-tinged. 01/29/2019 Patient denied any complaints of chest pain or shortness breath. Awake alert oriented 3. Blood in the urine is clearing up at this time. ID recommends to continue with meropenem upon discharge. Pending PICC line placement. CRP 17.3. ID and oncology is following. No other acute overnight issues. Current medications reviewed. Objective - Vital Signs Vital signs: Vital Signs Temp 99.4 F 01/29/19 20:03 Pulse 90 01/29/19 20:03 Resp 16 01/29/19 20:03 BP 120/73 01/29/19 20:03 Pulse Ox 95 01/29/19 20:03 Intake & Output 01/29/19 01/29/19 01/30/19 06:59 18:59 06:59 Intake Total 1440 Output Total 2600 800 Balance -1160 -800 Intake: Intake, IV Titration 1200 Amount Magnesium Sulfate-D5w Pmx 200 1 gm In Dextrose/Water 1 100ml.bag @ 100 mls/hr IVPB Q1H [facility] Rx#: [id number] Meropenem 1 gm In Sodium 100 Chloride 0.9% 100 ml @ 200 mls/hr IVPB Q8HR [facility] Rx#:[id number] Sodium Chloride 0.9% 1, 900 000 ml @ 75 mls/hr IV . [id number] [facility] Rx#:[id number] Oral 240 Output: Urine 2600 800 Uretheral (Sherwood) 2600 Other: Voiding Method Indwelling Catheter Indwelling Catheter Indwelling Catheter - Exam PHYSICAL EXAMINATION: GENERAL: The patient is alert and oriented x3, not in any acute distress. Well developed, well nourished. HEENT: Pupils are round and equally reacting to light. EOMI. No scleral icterus. No conjunctival pallor. Normocephalic, atraumatic. No pharyngeal erythema. No thyromegaly. CARDIOVASCULAR: S1 and S2 present. No murmurs, rubs, or gallops. PULMONARY: Chest is clear to auscultation, no wheezing or crackles. ABDOMEN: Soft, nontender, nondistended, normoactive bowel sounds. No palpable organomegaly. MUSCULOSKELETAL: No joint swelling or deformity. EXTREMITIES: No cyanosis, clubbing, or pedal edema. NEUROLOGICAL: Gross neurological examination did not reveal any new focal deficits. Does have chronic weakness SKIN: No rashes. - Labs CBC & Chem 7: 01/28/19 08:05 01/29/19 08:26 Labs: Abnormal Lab Results - Last 24 Hours (Table) 01/29/19 Range/Units 08:26 Creatinine 0.57 L (0.66-1.25) mg/dL Glucose 127 H (74-99) mg/dL Microbiology - Last 24 Hours (Table) 01/26/19 10:07 Blood Culture - Preliminary Blood No Growth after 72 hours Assessment and Plan Assessment: -Altered mental status, secondary to toxic encephalopathy from medications as mentioned above some of his medications will be discontinued all the fentanyl will be continued at this time. 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 Continue with xarelto -Hepatocellular carcinoma. Localized likely candidate for chemoembolization. Refer to hepatobiliary center upon completion of rehab. -Gastroesophageal reflux disease -Atrial flutter: Presently rate controlled patient will be continued on Effexor been and rate control medications including diltiazem and metoprolol -Bipolar disorder -Prostate cancer. Multiple prior prostate biopsies negative. Diagnosis where lymph node biopsy 2 months ago with IR at [facility]. Continue with Lupron -hypothyroidism Time with Patient: Greater than 30
[2019-01-30 04:55] VITALS: PULSE 79
[2019-01-30] MEDS: ARTIFICIAL TEARS-HYPROMELLOSE DROPS 15 ML BTL BOTH EYES SCH ×4 (05:25→16:00)
[2019-01-30] MEDS: LEVOTHYROXINE 100 MCG TAB PO SCH (05:38)
[2019-01-30 07:24] LABS: Anisocytosis Slight; Basophils % (A) 1 %; Eosinophils # (A) 0.5 k/uL (0-0.7); Eosinophils % (A) 7 %; HCT 32.9 % (39.0-53.0); HGB 10.4 gm/dL (13.0-17.5); Hypochromasia Slight; Lymphocytes # (A) 1.7 k/uL (1.0-4.8); Lymphocytes % (A) 26 %; MCH 27.4 pg (25.0-35.0); MCHC 31.5 g/dL (31.0-37.0); Mean Platelet Volume 6.3; Monocytes # (A) 0.5 k/uL (0-1.0); Monocytes % (A) 7 %; Neutrophils # (A) 3.7 k/uL (1.3-7.7); Neutrophils % (A) 57 %; Platelet Count 302 k/uL (150-450); RBC 3.79 m/uL (4.30-5.90); RDW 16.5 % (11.5-15.5); WBC 6.5 k/uL (3.8-10.6)
[2019-01-30 07:33] LABS: ALT 24 U/L (21-72); AST 16 U/L (17-59); Albumin 2.8 g/dL (3.5-5.0); Alkaline Phosphatase 84 U/L (38-126); Anion Gap 4 mmol/L; Blood Urea Nitrogen 16 mg/dL (9-20); Calcium 9.7 mg/dL (8.4-10.2); Carbon Dioxide 30 mmol/L (22-30); Chloride 106 mmol/L (98-107); Glucose 81 mg/dL (74-99); Potassium 4.1 mmol/L (3.5-5.1); Sodium 140 mmol/L (137-145); Total Bilirubin 0.4 mg/dL (0.2-1.3); Total Protein 5.9 g/dL (6.3-8.2)
[2019-01-30] MEDS: DILTIAZEM CD 120 MG CAP.ER.24H PO SCH (08:12)
[2019-01-30] MEDS: CHOLECALCIFEROL 1,000 UNIT TAB PO SCH (08:12)
[2019-01-30] MEDS: METOPROLOL TARTRATE 25 MG TAB PO SCH (08:12)
[2019-01-30] MEDS: GABAPENTIN 300 MG CAP PO SCH ×2 (08:12→16:00)
[2019-01-30] MEDS: TAMSULOSIN 0.4 MG CAP.ER.24H PO SCH (08:12)
[2019-01-30] MEDS: FERROUS SULFATE 325 MG TAB PO SCH (08:12)
[2019-01-30] MEDS: PANTOPRAZOLE 40 MG TABLET PO SCH (08:13)
[2019-01-30] MEDS: APIXABAN 5 MG TAB PO SCH (08:13)
[2019-01-30] MEDS: MEROPENEM 1 GM in SODIUM CHLORIDE 0.9% 100 ML IVPB SCH ×2 (08:15→16:10)
[2019-01-30] MEDS: CYCLOBENZAPRINE 10 MG TAB PO PRN (08:15)
[2019-01-30 10:41] LABS: INR 1.1 (<1.2); Prothrombin Time 11.1 sec (9.0-12.0)
[2019-01-30] MEDS ORDERED: LEUPROLIDE ACET 7.5 MG SYRINGEKIT IM ONE (12:00)
[2019-01-30 13:03] VITALS: BP 125/79; RESP 18; TEMP 97.1
--- NOTE | 2019-01-30 13:09 | P.PN ---
Subjective Progress Note Date: 01/28/19 Principal diagnosis: Altered mental status possible toxic encephalopathy Recent discitis/epidural abscess currently on IV antibiotics Hematuria likely traumatic as the patient pulled out Sherwood catheter. 83-year-old male was sent in from a subacute rehabilitation with compensative confusion. Patient had a limp lumbar spinal surgery for for abscess and patient has a PICC line and is receiving meropenem. Patient has a Sherwood catheter which was replaced urine is definitely abnormal because of the Sherwood catheter. There is no evidence of infection patient is an have any fever patient is an have leukocytosis. Patient is alert oriented 3 at this time. Patient was on meropenem which will be continued patient was started on Zosyn as well as was levofloxacin all of which will be discontinued there is no evidence of pneumonia there is no evidence of fear are tract infection either. His confusion appears to be secondary to multiple medications including baclofen l, morphine, fentanyl, or echo. Fentanyl is being continued morphine and baclofen are being discontinued patient is not in pain patient was also on Valium which is also being discontinued at this time. Patient was constipated because of multiple opiate medications was able to mow his bowel and does have good bowel sounds. 01/28/2019 Patient is more awake and oriented today. Currently on meropenem for up to 6 weeks due to discitis/epidural abscess. ID is on board. Repeat urine culture was ordered with clean cath due to recent cultures showing VRE. Awaiting final culture report. Pending ID recommendations regarding continuation of antibiotic course. Patient has been afebrile. No nausea vomiting or abdominal pain. No chest pain or shortness of breath. Patient does have Sherwood cath in place and urinate still blood-tinged. Current medications reviewed. Objective - Vital Signs Vital signs: Vital Signs Temp 97.4 F L 01/28/19 13:00 Pulse 83 01/28/19 13:00 Resp 18 01/28/19 15:02 BP 117/72 01/28/19 13:00 Pulse Ox 99 01/28/19 13:00 Intake & Output 01/27/19 01/28/19 01/28/19 18:59 06:59 18:59 Intake Total 1710 Output Total 7553 104 9311 Balance -1900 960 -1100 Weight 82.8 kg Intake: Intake, IV Titration 1000 Amount Meropenem 1 gm In Sodium 100 Chloride 0.9% 100 ml @ 200 mls/hr IVPB Q8HR [facility] Rx#:[id number] Sodium Chloride 0.9% 1, 900 000 ml @ 75 mls/hr IV . [id number] [facility] Rx#:[id number] Oral 710 Output: Urine 8840 025 8247 Other: Voiding Method Indwelling Catheter Indwelling Catheter Indwelling Catheter # Bowel Movements 1 - Exam PHYSICAL EXAMINATION: GENERAL: The patient is alert and oriented x3, not in any acute distress. Well developed, well nourished. HEENT: Pupils are round and equally reacting to light. EOMI. No scleral icterus. No conjunctival pallor. Normocephalic, atraumatic. No pharyngeal erythema. No thyromegaly. CARDIOVASCULAR: S1 and S2 present. No murmurs, rubs, or gallops. PULMONARY: Chest is clear to auscultation, no wheezing or crackles. ABDOMEN: Soft, nontender, nondistended, normoactive bowel sounds. No palpable organomegaly. MUSCULOSKELETAL: No joint swelling or deformity. EXTREMITIES: No cyanosis, clubbing, or pedal edema. NEUROLOGICAL: Gross neurological examination did not reveal any new focal defic its. Does have chronic weakness SKIN: No rashes. - Labs CBC & Chem 7: 01/28/19 08:05 01/29/19 08:26 Labs: Abnormal Lab Results - Last 24 Hours (Table) 01/27/19 01/27/19 01/27/19 Range/Units 16:52 20:18 Unknown RBC (4.30-5.90) m/uL Hgb (13.0-17.5) gm/dL Hct (39.0-53.0) % RDW (11.5-15.5) % Creatinine (0.66-1.25) mg/dL Glucose (74-99) mg/dL POC Glucose (mg/dL) 137 H 141 H (75-99) mg/dL Urine Protein 2+ H (Negative) Urine Blood Large H (Negative) Ur Leukocyte Esterase Trace H (Negative) Urine RBC >182 H (0-5) /hpf Urine WBC 104 H (0-5) /hpf Urine WBC Clumps Few H (None) /hpf 01/28/19 01/28/19 01/28/19 Range/Units 06:49 08:05 08:05 RBC 3.85 L (4.30-5.90) m/uL Hgb 10.7 L (13.0-17.5) gm/dL Hct 33.5 L (39.0-53.0) % RDW 16.1 H (11.5-15.5) % Creatinine 0.57 L (0.66-1.25) mg/dL Glucose 124 H (74-99) mg/dL POC Glucose (mg/dL) 109 H (75-99) mg/dL Urine Protein (Negative) Urine Blood (Negative) Ur Leukocyte Esterase (Negative) Urine RBC (0-5) /hpf Urine WBC (0-5) /hpf Urine WBC Clumps (None) /hpf 01/28/19 Range/Units 11:32 RBC (4.30-5.90) m/uL Hgb (13.0-17.5) gm/dL Hct (39.0-53.0) % RDW (11.5-15.5) % Creatinine (0.66-1.25) mg/dL Glucose (74-99) mg/dL POC Glucose (mg/dL) 104 H (75-99) mg/dL Urine Protein (Negative) Urine Blood (Negative) Ur Leukocyte Esterase (Negative) Urine RBC (0-5) /hpf Urine WBC (0-5) /hpf Urine WBC Clumps (None) /hpf Microbiology - Last 24 Hours (Table) 01/26/19 10:07 Blood Culture - Preliminary Blood No Growth after 48 hours 01/27/19 Unknown Urine Culture - Preliminary Urine,Clean Catch 01/26/19 10:36 Urine Culture - Final Urine,Voided Assessment and Plan Assessment: -Altered mental status, secondary to toxic encephalopathy from medications as mentioned above some of his medications will be discontinued all the fentanyl will be continued at this time. The patient is alert oriented 3 no there is no evidence that sepsis is causing these symptoms -Recent back surgery for abscess in the lumbar spine area meropenem will be continued -Gastroesophageal reflux disease -Atrial flutter: Presently rate controlled patient will be continued on Effexor been and rate control medications including diltiazem and metoprolol -Bipolar disorder - prostatic hypertrophic -hypothyroidism Time with Patient: Greater than 30
--- NOTE | 2019-01-30 15:47 | P.DS ---
Providers Date of admission: 01/26/19 15:05 Expected date of discharge: 01/30/19 Attending physician: Serena Pickering Consults: 01/26/19 20:00 Consult Physician Routine Consulting Provider: Griffin Acosta Consult Reason/Comments: disciitis Do you want consulting provider notified?: Yes 01/28/19 12:48 Consult Physician Routine Consulting Provider: Ash Singletary Consult Reason/Comments: known, manage montly lupron injection Do you want consulting provider notified?: Yes Primary care physician: Keegan Kentqvi Hospital Course: Discharge diagnosis -Altered mental status, secondary to toxic encephalopathy from medications including morphine were will be discontinued. fentanyl patch will be continued at this time. The patient is alert oriented 3 no there is no evidence that sepsis is causing these symptoms -Recent back surgery for abscess in the lumbar spine/epidural abscess meropenem will be continued. Midline placed. 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 Continue with xarelto -Hepatocellular carcinoma. Localized likely candidate for chemoembolization. Refer to hepatobiliary center upon completion of rehab. -Gastroesophageal reflux disease -Atrial flutter: Presently rate controlled patient will be continued on Effexor been and rate control medications including diltiazem and metoprolol -Bipolar disorder -Prostate cancer. Multiple prior prostate biopsies negative. Diagnosis where lymph node biopsy 2 months ago with IR at [facility]. Continue with Lupron -hypothyroidism Recent discitis/epidural abscess currently on IV antibiotics Hematuria likely traumatic as the patient pulled out Sherwood catheter. 83-year-old male was sent in from a subacute rehabilitation with compensative confusion. Patient had a limp lumbar spinal surgery for for abscess and patient has a PICC line and is receiving meropenem. Patient has a Sherwood catheter which was replaced urine is definitely abnormal because of the Sherwood catheter. There is no evidence of infection patient is an have any fever patient is an have leukocytosis. Patient is alert oriented 3 at this time. Patient was on meropenem which will be continued patient was started on Zosyn as well as was levofloxacin all of which will be discontinued there is no evidence of pneumonia there is no evidence of fear are tract infection either. His confusion appears to be secondary to multiple medications including baclofen l, morphine, fentanyl, or echo. Fentanyl is being continued morphine and baclofen are being discontinued patient is not in pain patient was also on Valium which is also being discontinued at this time. Patient was constipated because of multiple opiate medications was able to mow his bowel and does have good bowel sounds. 01/28/2019 Patient is more awake and oriented today. Currently on meropenem for up to 6 weeks due to discitis/epidural abscess. ID is on board. Repeat urine culture was ordered with clean cath due to recent cultures showing VRE. Awaiting final culture report. Pending ID recommendations regarding continuation of antibiotic course. Patient has been afebrile. No nausea vomiting or abdominal pain. No chest pain or shortness of breath. Patient does have Sherwood cath in place and urinate still blood-tinged. 01/29/2019 Patient denied any complaints of chest pain or shortness breath. Awake alert oriented 3. Blood in the urine is clearing up at this time. ID recommends to continue with meropenem upon discharge. Pending PICC line placement. CRP 17.3. ID and oncology is following. No other acute overnight issues. 01/30/2019 Patient denied any new complaints today. Patient did have midline placed. Patient will be continued on meropenem as per ID recommendations for lumbar spine/epidural abscess/discitis. Patient has been afebrile. No chest pain or short of breath. Hematuria is completely resolved. Patient will be started back on blood thinners as well. Patient is stable to be discharged to rehab. Discussed with his family at bedside in detail. PHYSICAL EXAMINATION: Patient is lying in the bed comfortably, no acute distress, awake alert and oriented.. HEENT: Normocephalic. Neck is supple. Pupils reactive. Nostrils clear. Oral cavity is moist. Ears reveal no drainage. Neck reveals no JVD, carotid bruits, or thyromegaly. CHEST EXAMINATION: Trachea is central. Symmetrical expansion. Lung morgan clear to auscultation and percussion. CARDIAC: Normal S1, S2 with no gallops. No murmurs ABDOMEN: Soft. Bowel sounds normal. No organomegaly. No abdominal bruits. Extremities: reveal no edema. No clubbing or cyanosis Neurologically awake, alert, oriented x3 with well-coordinated movements. No focal deficits noted Skin: No rash or skin lesions. Psychiatric: Coperative. Nonsuicidal Musculoskeletal: No joint swelling or deformity. Normal range of motion. Vital Signs 01/30/19 12:34 Temperature 97.1 F L Pulse Rate [ 79 Pulse Oximetery ] Respiratory 18 Rate Blood Pressure 125/79 [Right Arm] O2 Sat by Pulse 95 Oximetry Total time taken greater than 35 minutes including 18 minutes for counseling and coordination of care. Patient Condition at Discharge: Fair Plan - Discharge Summary Discharge Rx Participant: No New Discharge Prescriptions: New Meropenem [Merrem] 1 gm IVPB Q8H #42 vial Cyclobenzaprine [Flexeril] 10 mg PO TID PRN 7 Days #21 tab PRN Reason: Muscle Spasm Continue Levothyroxine Sodium [Synthroid] 100 mcg PO DAILY Tamsulosin HCl [Flomax] 0.4 mg PO DAILY Pantoprazole Sodium [Protonix] 40 mg PO DAILY Acetaminophen Tab [Tylenol] 650 mg PO Q6HR PRN tab PRN Reason: Fever And/ Or Pain Cholecalciferol [Vitamin D3] 1,000 unit PO DAILY Polyethylene Glycol 3350 [Miralax] 17 gm PO DAILY PRN powd.pack PRN Reason: Constipation Cyclobenzaprine [Flexeril] 10 mg PO TID PRN PRN Reason: Muscle Spasm Artificial Tears-Hypromellose [Artificial Tear Drops] 1 drops BOTH EYES Q4H Meropenem [Merrem] 1 gm IVPB Q8H Metoprolol Tartrate [Lopressor] 25 mg PO BID Lactose-Reduced Food [Ensure Plus] 1 can PO BID Apixaban [Eliquis] 5 mg PO BID QUEtiapine [SEROquel] 25 mg PO HS Ferrous Sulfate [Iron (65 MG Elemental)] 325 mg PO DAILY Diltiazem Cd [Cardizem CD] 120 mg PO DAILY fentaNYL 25MCG/HR PATCH [Duragesic 25MCG/HR] 25 mcg TRANSDERM Q72H #7 patch Gabapentin [Neurontin] 300 mg PO TID #30 cap Discontinued Diazepam [Valium] 5 mg PO Q8H PRN tab PRN Reason: Spasms Baclofen [Lioresal] 10 mg PO BID Morphine Sulfate Ir [MSIR] 15 mg PO TID PRN PRN Reason: Pain Discharge Medication List Levothyroxine Sodium [Synthroid] 100 mcg PO DAILY 01/09/18 [History] Pantoprazole Sodium [Protonix] 40 mg PO DAILY 01/09/18 [History] Tamsulosin HCl [Flomax] 0.4 mg PO DAILY 01/09/18 [History] Acetaminophen Tab [Tylenol] 650 mg PO Q6HR PRN tab 10/25/18 [Rx] Cholecalciferol [Vitamin D3] 1,000 unit PO DAILY 12/02/18 [History] Polyethylene Glycol 3350 [Miralax] 17 gm PO DAILY PRN powd.pack 12/14/18 [Rx] Apixaban [Eliquis] 5 mg PO BID 01/26/19 [History] Artificial Tears-Hypromellose [Artificial Tear Drops] 1 drops BOTH EYES Q4H 01/26/19 [History] Cyclobenzaprine [Flexeril] 10 mg PO TID PRN 01/26/19 [History] Diltiazem Cd [Cardizem CD] 120 mg PO DAILY 01/26/19 [History] Ferrous Sulfate [Iron (65 MG Elemental)] 325 mg PO DAILY 01/26/19 [History] Lactose-Reduced Food [Ensure Plus] 1 can PO BID 01/26/19 [History] Meropenem [Merrem] 1 gm IVPB Q8H 01/26/19 [History] Metoprolol Tartrate [Lopressor] 25 mg PO BID 01/26/19 [History] QUEtiapine [SEROquel] 25 mg PO HS 01/26/19 [History] Meropenem [Merrem] 1 gm IVPB Q8H #42 vial 01/29/19 [Rx] Cyclobenzaprine [Flexeril] 10 mg PO TID PRN 7 Days #21 tab 01/30/19 [Rx] Gabapentin [Neurontin] 300 mg PO TID #30 cap 01/30/19 [Rx] fentaNYL 25MCG/HR PATCH [Duragesic 25MCG/HR] 25 mcg TRANSDERM Q72H #7 patch 01/30/19 [Rx] Follow up Appointment(s)/Referral(s): Keegan Bedolla MD [Primary Care Provider] - 1-2 days Ambulatory/Diagnostic Orders: Basic Metabolic Panel [LAB.AMB] Location: None Selected C Reactive Protein [LAB.AMB] Location: None Selected Complete Blood Count w/diff [LAB.AMB] Time Frame: 2 Weeks, Location: None Selected Erythrocyte Sedimentation Rate [LAB.AMB] Location: None Selected Miscellaneous Lab Order [LAB.AMB] Location: None Selected Patient Instructions/Handouts: Meropenem (By injection), Pneumonitis (DC), Dehydration (DC), Urinary Retention in Men (ED), Acute Delirium (DC) Discharge Disposition: TRANSFER TO SNF/ECF
--- NOTE | 2019-01-30 23:31 | P.PN ---
Subjective Progress Note Date: 01/30/19 Principal diagnosis: Acute COnfusion Planning on discharging today back to [facility] today, receiving Lupron and detailed discussion on oncological follow-up with patient, and daughter today Objective - Vital Signs Vital signs: Vital Signs Temp 97.1 F L 01/30/19 12:34 Pulse 79 01/30/19 16:00 Resp 18 01/30/19 16:00 BP 125/79 01/30/19 12:34 Pulse Ox 95 01/30/19 12:34 Intake & Output 01/30/19 01/30/19 01/31/19 06:59 18:59 06:59 Intake Total 1760 Output Total 1300 1575 Balance -1300 185 Weight 82.8 kg Intake: Intake, IV Titration 100 Amount Meropenem 1 gm In Sodium 100 Chloride 0.9% 100 ml @ 200 mls/hr IVPB Q8HR [facility] Rx#:[id number] Oral 1660 Output: Urine 1300 1575 Uretheral (Sherwood) 1300 Other: Voiding Method Indwelling Catheter Indwelling Catheter # Voids 1 # Bowel Movements 0 - Exam Gen: Alert and Oriented, No acute Distress Head NC/NT Neck Supple Lungs: CTA Bilateral nO increased Effort Heart RRR, S1s2 Abdomen: Soft ND Ext No edema - Labs CBC & Chem 7: 01/30/19 06:39 01/30/19 06:39 Labs: Abnormal Lab Results - Last 24 Hours (Table) 01/30/19 01/30/19 Range/Units 06:39 06:39 RBC 3.79 L (4.30-5.90) m/uL Hgb 10.4 L (13.0-17.5) gm/dL Hct 32.9 L (39.0-53.0) % RDW 16.5 H (11.5-15.5) % AST 16 L (17-59) U/L Total Protein 5.9 L (6.3-8.2) g/dL Albumin 2.8 L (3.5-5.0) g/dL Microbiology - Last 24 Hours (Table) 01/26/19 10:07 Blood Culture - Preliminary Blood No Growth after 96 hours Assessment and Plan Plan: Assessment and Plan Mental Status Changes: - Improved since admission and antibiotics - Following with Dr. Acosta ID Intractable low back pain - related to Disckitis and Abscess status post Surgical Intervention with Ortho spine - Unfortunately, his overall discomfort has worsened rather than improved. CT abd/Pelvis revealed increased Spinal Abscess from 12/20/18. - Antibiotics are continued and Ortho Surgery followed, when no further intervention was able to be done he was transferred [facility] further surgical intervention, antibiotic management and then discharged to Sub-Acute Rehab. 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 - Maintained on Xarelto Hepatocellular carcinoma - Appears to be localized likely candidate chemoembolization of liver - After he completes rehabiliation at sub acute center he will need to be reffered to Hepatobiliary center at [facility] for Chemoembolization of his newly diagnosed HCC - This has been delayed secondary to other multiple acute medical issues he has encountered the past couple months, will recheck AFP, not elevated on diagnosis Prostate cancer - As noted the patient had multiple prior prostate biopsies that were negative. - The diagnosis was made via lymph node biopsy two months ago with IR out of [facility] - PSA has been stable in the low 20 range. With delays in being able to address this prostate cancer will recheck PSA today - He did receive a one month dose of Lupron on 12/18/18, therefore while he is admitted we will give his second dose (Ordered for today 01/29/19) Osteomyelitis/Diskitis: Resolving - Status Post Surgery number one for 12/05/18. - ID is following and Antibiotics at discharge per Dr. Acosta - Transferred for further surgical intervention to [facility] for recurrent/worsening abscesss on CT - Status Post intervention and antibiotics and been undergoing therapy at [facility] UTI - Recurrent: - Recurrent Resistent UTI - COntinued antibiotics, Dr. Acosta to Manage. Recent C-Diff Colitis - - Treated by Infectious Disease last admission We will plan a 4 week follow-up in office and administer Lupron again at that time (Received second one month injection today 01/30) At that time we will reassess plan for chemo-embolization and progression and improvement in rehab Physician Attestation I have completed the full history and physical and developed the complete impression and plan, agree with dictation, dictated as a scribe.
== END 2019-01-30 18:52 | DRG 91 ==
LOC: EC 09:47 → 3NMEDONC 15:05
PROVIDERS: ADMIT Internal Medicine; ATTEND Internal Medicine
PROC: 05HY33Z Insertion of Infusion Device into Upper Vein, Percutaneous Approach (ICD-10-PCS; principal; 2019-01-30 09:00)
DX: G92 Toxic encephalopathy (principal); I82.220 Acute embolism and thrombosis of inferior vena cava; C22.0 Liver cell carcinoma; I48.92 Unspecified atrial flutter; M46.26 Osteomyelitis of vertebra, lumbar region; R31.9 Hematuria, unspecified; E86.0 Dehydration; C61 Malignant neoplasm of prostate; T40.2X5A Adverse effect of other opioids, initial encounter; T42.8X5A Adverse effect of antiparkinsonism drugs and other central muscle-tone depressants, initial encounter; E03.9 Hypothyroidism, unspecified; E78.5 Hyperlipidemia, unspecified; F31.9 Bipolar disorder, unspecified; I10 Essential (primary) hypertension; K21.9 Gastro-esophageal reflux disease without esophagitis; M46.46 Discitis, unspecified, lumbar region; N40.0 Benign prostatic hyperplasia without lower urinary tract symptoms; M48.00 Spinal stenosis, site unspecified; R59.9 Enlarged lymph nodes, unspecified; R33.9 Retention of urine, unspecified; Z79.01 Long term (current) use of anticoagulants; Z79.890 Hormone replacement therapy; Z79.899 Other long term (current) drug therapy; Z87.440 Personal history of urinary (tract) infections; Z86.718 Personal history of other venous thrombosis and embolism; Z85.828 Personal history of other malignant neoplasm of skin; Z96.60 Presence of unspecified orthopedic joint implant; Z98.42 Cataract extraction status, left eye; Z98.41 Cataract extraction status, right eye; Z96.1 Presence of intraocular lens
CPT/HCPCS: 36410; 36415; 70450; 71045; 71046; 74018; 76937; 80048; 80053; 81001; 82105; 82140; 82150; 82550; 82553; 83605; 83690; 83735; 84153; 84439; 84443; 84484; 85025; 85610; 85652; 86140; 87040; 87086; 87502; 93005; 94760; 96361; 96374; 99285

== ENCOUNTER 2019-02-05 03:24 | Emergency (ER) | payer MEDICARE, OTHER ==
--- NOTE | 2019-02-05 03:33 | ED ---
Male Urogenital HPI - General Stated complaint: Urine retention Time Seen by Provider: 02/05/19 03:27 Source: EMS Mode of arrival: EMS - History of Present Illness Initial comments: This patient's a 83-year-old man with history of prostate cancer. He comes here from intermediate after his catheter had reportedly filled blood clots and was no longer passing urine. They reportedly tried to irrigate catheter without success. It was removed and they could not successfully perform straight cath. Patient states that it does feel like he needs to urinate. He complains of bladder pressure. He denies any other symptoms. MD Complaint: other (Urinary retention) -: hour(s) Location: abdomen Radiation: none Severity: moderate Quality: other (Pressure) Consistency: constant Improves with: none Worsens with: none indwelling catheter Reports: urinary retention, blood in urine - Related Data Home Medications Medication Instructions Recorded Confirmed Levothyroxine Sodium [Synthroid] 100 mcg PO DAILY@0600 01/09/18 02/05/19 Pantoprazole Sodium [Protonix] 40 mg PO DAILY@0600 01/09/18 02/05/19 Tamsulosin HCl [Flomax] 0.4 mg PO DAILY 01/09/18 02/05/19 Cholecalciferol [Vitamin D3] 1,000 unit PO DAILY 12/02/18 02/05/19 Apixaban [Eliquis] 5 mg PO BID 01/26/19 02/05/19 Artificial Tears-Hypromellose 1 drops BOTH EYES Q4H 01/26/19 02/05/19 [Artificial Tear Drops] Cyclobenzaprine [Flexeril] 10 mg PO TID PRN 01/26/19 02/05/19 Diltiazem Cd [Cardizem CD] 120 mg PO DAILY 01/26/19 02/05/19 Ferrous Sulfate [Iron (65 MG 325 mg PO DAILY 01/26/19 02/05/19 Elemental)] Lactose-Reduced Food [Ensure Plus] 1 can PO BID@0900,1700 01/26/19 02/05/19 Meropenem [Merrem] 1 gm IVPB Q8H 01/26/19 02/05/19 Metoprolol Tartrate [Lopressor] 25 mg PO BID 01/26/19 02/05/19 QUEtiapine [SEROquel] 25 mg PO HS 01/26/19 02/05/19 Z-Guard 1 applic TOPICAL Q12H 02/05/19 02/05/19 fentaNYL 25MCG/HR PATCH [Duragesic 1 patch TRANSDERM Q72H 02/05/19 02/05/19 25MCG/HR] Previous Rx's Medication Instructions Recorded Acetaminophen Tab [Tylenol] 650 mg PO Q6HR PRN tab 10/25/18 Polyethylene Glycol 3350 [Miralax] 17 gm PO DAILY PRN powd.pack 12/14/18 Gabapentin [Neurontin] 300 mg PO TID #30 cap 01/30/19 Allergies Allergy/AdvReac Type Severity Reaction Status Date / Time No Known Allergies Allergy Verified 02/05/19 06:59 Review of Systems ROS Statement: Those systems with pertinent positive or pertinent negative responses have been documented in the HPI. ROS Other: All systems not noted in ROS Statement are negative. Constitutional: Denies: fever, chills, weakness Respiratory: Denies: cough, dyspnea Cardiovascular: Denies: chest pain, palpitations, edema Gastrointestinal: Reports: as per HPI, abdominal pain. Denies: nausea, vomiting, diarrhea, constipation Genitourinary: Reports: hematuria. Denies: testicular pain, testicular mass Musculoskeletal: Denies: back pain Skin: Denies: rash Past Medical History Past Medical History: Atrial Flutter, Cancer, GERD/Reflux, Hyperlipidemia, Hypertension, Prostate Disorder, Thyroid Disorder Additional Past Medical History / Comment(s): SKIN CANCER, prostate & liver cancer History of Any Multi-Drug Resistant Organisms: VRE Date of last positivie culture/infection: 12/19/18 MDRO Source:: Urine-VRE Past Surgical History: Adenoidectomy, Back Surgery, Hernia Repair, Joint Replacement, Prostate Surgery, Tonsillectomy Additional Past Surgical History / Comment(s): PARATHYROID SX, ESOPHAGEAL SX FOR ACHALASIA,VARICOSE VEIN SX,BILAT CATARAT SX, spinal abscess drainage, Past Anesthesia/Blood Transfusion Reactions: No Reported Reaction Past Psychological History: No Psychological Hx Reported Smoking Status: Never smoker Past Alcohol Use History: Rare Past Drug Use History: None Reported - Past Family History Mother Family Medical History: Cancer Additional Family Medical History / Comment(s): COLON General Exam General appearance: alert, in no apparent distress Head exam: Present: atraumatic Respiratory exam: Present: normal lung sounds bilaterally. Absent: respiratory distress, wheezes, rales, rhonchi, stridor Cardiovascular Exam: Present: regular rate, normal rhythm, normal heart sounds. Absent: systolic murmur, diastolic murmur, rubs, gallop GI/Abdominal exam: Present: soft, mass (Suprapubic fullness consistent with bladder), hernia (There is an umbilical hernia which is not tender and is). Absent: distended, tenderness, guarding, rebound, rigid Extremities exam: Present: normal inspection, normal capillary refill. Absent: pedal edema Skin exam: Present: warm, dry, intact, normal color. Absent: rash Course Vital Signs 02/05/19 02/05/19 02/05/19 03:26 03:32 04:00 Temperature 96.8 F L Pulse Rate 87 Respiratory 18 Rate Blood Pressure 89/61 89/61 89/61 O2 Sat by Pulse 98 99 98 Oximetry 02/05/19 02/05/19 02/05/19 04:30 05:00 05:29 Temperature Pulse Rate 80 88 90 Respiratory 17 18 19 Rate Blood Pressure 119/79 111/76 83/52 O2 Sat by Pulse 98 96 96 Oximetry 02/05/19 02/05/19 02/05/19 05:30 06:00 06:30 Temperature Pulse Rate 99 Respiratory 18 Rate Blood Pressure 83/52 123/71 119/79 O2 Sat by Pulse 96 94 L Oximetry 02/05/19 02/05/19 02/05/19 07:00 07:30 08:00 Temperature Pulse Rate 100 Respiratory 18 Rate Blood Pressure 105/74 90/64 90/61 O2 Sat by Pulse 97 98 79 L Oximetry 02/05/19 02/05/19 08:30 09:00 Temperature Pulse Rate Respiratory Rate Blood Pressure 100/67 100/67 O2 Sat by Pulse 96 96 Oximetry Procedures - Catheter Insertion (Urinary) Indications: to alleviate urinary retention Bladder Scan/US before Catheterization: Yes Estimated Amount of Urine (mls): 800 Preparation: Povidone-Iodine Type of Catheter Inserted: Sherwood, coude tip Catheter Balloon Size (mLs): 5 Results: ultrasound used for placement verification Patient Tolerated Procedure: well Complications: none Additional Comments: Please see the MDM Medical Decision Making - Medical Decision Making This patient is an 83-year-old man sent here to be evaluated for urinary retention. Nursing staff had attempted to replace the patient's Sherwood catheter as it had felt was blood clots. They were not able to obtain urine. I therefore placed a replacement Sherwood catheter myself. This went in without difficulty however no urine was returned. I did not inflate the balloon until checking that the catheter was in the bladder using the bedside ultrasound. The ultrasound revealed that the catheter had gone into the bladder and appeared to lodge in a collection of blood clot. I therefore flushed with small aliquots of saline and was able to remove significant amount of blood clot and then had drainage of pink urine, see the nursing note for volumes. The patient was going to be transferred back to intermediate pending return of his lab studies, however the patient did have a fall and therefore computed tomography scan was added which does not reveal any brain or C-spine injury. On reevaluation, the patient is not having any complaints. He denies pain or dyspnea. - Lab Data Result diagrams: 02/05/19 03:41 02/05/19 03:41 Lab Results 02/05/19 02/05/19 02/05/19 Range/Units 03:41 03:41 04:40 WBC 10.0 (3.8-10.6) k/uL RBC 3.25 L (4.30-5.90) m/uL Hgb 9.1 L (13.0-17.5) gm/dL Hct 28.4 L (39.0-53.0) % MCV 87.4 (80.0-100.0) fL MCH 28.1 (25.0-35.0) pg MCHC 32.2 (31.0-37.0) g/dL RDW 16.8 H (11.5-15.5) % Plt Count 384 (150-450) k/uL Neutrophils % 72 % Lymphocytes % 18 % Monocytes % 6 % Eosinophils % 3 % Basophils % 0 % Neutrophils # 7.1 (1.3-7.7) k/uL Lymphocytes # 1.8 (1.0-4.8) k/uL Monocytes # 0.6 (0-1.0) k/uL Eosinophils # 0.3 (0-0.7) k/uL Basophils # 0.0 (0-0.2) k/uL Hypochromasia Slight Anisocytosis Slight Sodium 137 (137-145) mmol/L Potassium 4.5 (3.5-5.1) mmol/L Chloride 104 (98-107) mmol/L Carbon Dioxide 26 (22-30) mmol/L Anion Gap 7 mmol/L BUN 21 H (9-20) mg/dL Creatinine 0.88 (0.66-1.25) mg/dL Est GFR (CKD-EPI)AfAm >90 (>60 ml/min/1.73 sqM) Est GFR (CKD-EPI)NonAf 80 (>60 ml/min/1.73 sqM) Glucose 139 H (74-99) mg/dL Plasma Lactic Acid Zane 1.9 (0.7-2.0) mmol/L Calcium 10.3 H (8.4-10.2) mg/dL Urine Color Urine Appearance (Clear) Urine RBC (0-5) /hpf Urine WBC (0-5) /hpf 02/05/19 Range/Units 06:06 WBC (3.8-10.6) k/uL RBC (4.30-5.90) m/uL Hgb (13.0-17.5) gm/dL Hct (39.0-53.0) % MCV (80.0-100.0) fL MCH (25.0-35.0) pg MCHC (31.0-37.0) g/dL RDW (11.5-15.5) % Plt Count (150-450) k/uL Neutrophils % % Lymphocytes % % Monocytes % % Eosinophils % % Basophils % % Neutrophils # (1.3-7.7) k/uL Lymphocytes # (1.0-4.8) k/uL Monocytes # (0-1.0) k/uL Eosinophils # (0-0.7) k/uL Basophils # (0-0.2) k/uL Hypochromasia Anisocytosis Sodium (137-145) mmol/L Potassium (3.5-5.1) mmol/L Chloride (98-107) mmol/L Carbon Dioxide (22-30) mmol/L Anion Gap mmol/L BUN (9-20) mg/dL Creatinine (0.66-1.25) mg/dL Est GFR (CKD-EPI)AfAm (>60 ml/min/1.73 sqM) Est GFR (CKD-EPI)NonAf (>60 ml/min/1.73 sqM) Glucose (74-99) mg/dL Plasma Lactic Acid Zane (0.7-2.0) mmol/L Calcium (8.4-10.2) mg/dL Urine Color Red Urine Appearance Bloody (Clear) Urine RBC >182 H (0-5) /hpf Urine WBC >182 H (0-5) /hpf Disposition Clinical Impression: Urinary retention, Malfunction of Sherwood catheter, Hematuria Condition: Fair Referrals: Leonard Bowser MD [Primary Care Provider] - 1-2 days
[2019-02-05 03:49] LABS: Anisocytosis Slight; Basophils % (A) 0 %; Eosinophils # (A) 0.3 k/uL (0-0.7); Eosinophils % (A) 3 %; HCT 28.4 % (39.0-53.0); HGB 9.1 gm/dL (13.0-17.5); Hypochromasia Slight; Lymphocytes # (A) 1.8 k/uL (1.0-4.8); Lymphocytes % (A) 18 %; MCH 28.1 pg (25.0-35.0); MCHC 32.2 g/dL (31.0-37.0); MCV 87.4 fL (80.0-100.0); Mean Platelet Volume 6.2; Monocytes # (A) 0.6 k/uL (0-1.0); Monocytes % (A) 6 %; Neutrophils # (A) 7.1 k/uL (1.3-7.7); Neutrophils % (A) 72 %; Platelet Count 384 k/uL (150-450); RBC 3.25 m/uL (4.30-5.90); RDW 16.8 % (11.5-15.5)
[2019-02-05 04:00] LABS: Anion Gap 7 mmol/L; Blood Urea Nitrogen 21 mg/dL (9-20); Calcium 10.3 mg/dL (8.4-10.2); Carbon Dioxide 26 mmol/L (22-30); Chloride 104 mmol/L (98-107); Glucose 139 mg/dL (74-99); Potassium 4.5 mmol/L (3.5-5.1); Sodium 137 mmol/L (137-145)
[2019-02-05] MEDS ORDERED: SODIUM CHLORIDE 0.9% 500 ML 500 ML IV STA (05:21)
[2019-02-05 06:02] VITALS: RESP 18
[2019-02-05 06:32] LABS: RBC,Urine >182 /hpf (0-5); WBC,Urine >182 /hpf (0-5)
[2019-02-05 06:33] LABS: Appearance,Urine Bloody (Clear); Color,Urine Red
--- NOTE | 2019-02-05 08:14 | CT ---
EXAMINATION TYPE: CT brain cspine wo con DATE OF EXAM: 02/05/2019 COMPARISON: Brain 01/26/2019 HISTORY: 83-year-old male with Pain CT DLP: 1573.5 mGycm Automated exposure control for dose reduction was used. Technique: Examination of the head was done in axial plane without intravenous contrast. Coronal and sagittal reconstructions performed. CT of the cervical spine was obtained in axial plane without intravenous injection of contrast mater ial. Coronal and sagittal reformatted images were obtained from the axial views for evaluation of f ractures, spinal alignment and canal. FINDINGS: Head: There is no evidence of acute intracranial hemorrhage, acute ischemic changes, mass, mass-effect, or extra-axial fluid collection. There is no effacement of cerebral sulci or basal subarachnoid cister ns. There is no hydrocephalus. There is no midline shift. Saenz-white matter distinction is preserv ed. Mild generalized supratentorial volume loss especially central cerebral atrophy similar to prior exam . Mild patchy periventricular white matter hypodensities unchanged. Leftward nasal septal deviation. Mild mucosal thickening ethmoid air cells and maxillary sinuses and an air-fluid level in the left sphenoid sinus. Orbits and globes appear intact. Cervical spine: The visualized aorta is aneurysmal with the upper descending thoracic aorta measuring 4.1 cm and the visualized aortic arch measuring 4.8 cm. No craniocervical junction abnormality, predental space widening, or prevertebral soft tissue swellin g. Degenerative changes at the C1 dens articulation. Hypertrophic facet and uncovertebral joint degenerative change throughout. Grade 1 anterolisthesis at C4-C5 and C7-T1 likely on a degenerative basis. Assessment of the spinal canal from C3 down is limited due to artifact from the patient's elevated sh oulders. No acute fracture of the cervical spine. Variable moderate bilateral neuroforaminal stenoses. Sagittal and coronal reformatted images confirm above findings. COMBINED IMPRESSION: 1. No acute intracranial abnormality seen. Similar mild cerebral atrophy. 2. No acute fracture of the cervical spine. Moderate to advanced multilevel spondylotic changes with degenerative grade 1 anterolisthesis at C4-C5 and C7-T1. 3. Chronic maxillary and ethmoid sinusitis with an air-fluid level in the left sphenoid sinus. Correl ate for superimposed acute sinusitis. 4. 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 Appropriate follow-up recom mended.
[2019-02-05 12:11] VITALS: BP 106/75; PULSE 91; TEMP 98.5
== END 2019-02-05 13:45 ==
LOC: EC 03:24
DX: T83.018A Breakdown (mechanical) of other urinary catheter, initial encounter (principal); I48.92 Unspecified atrial flutter; K21.9 Gastro-esophageal reflux disease without esophagitis; I10 Essential (primary) hypertension; E07.9 Disorder of thyroid, unspecified; Z85.46 Personal history of malignant neoplasm of prostate; Z85.828 Personal history of other malignant neoplasm of skin; Z85.05 Personal history of malignant neoplasm of liver; Z96.89 Presence of other specified functional implants; Z98.890 Other specified postprocedural states; Z79.890 Hormone replacement therapy; Z79.01 Long term (current) use of anticoagulants; Z79.891 Long term (current) use of opiate analgesic; Z79.899 Other long term (current) drug therapy; Y84.6 Urinary catheterization as the cause of abnormal reaction of the patient, or of later complication, without mention of misadventure at the time of the procedure
CPT/HCPCS: 36415; 51702; 70450; 72125; 80048; 81001; 83605; 85025; 87086; 99284

== ENCOUNTER 2019-02-05 14:56 | Inpatient (IN) | payer MEDICARE, OTHER ==
[2019-02-05] MEDS ORDERED: SODIUM CHLORIDE 0.9% 1,000 ML IV ONE (15:48)
[2019-02-05 15:50] LABS: Anisocytosis Slight; Basophils % (A) 1 %; Eosinophils # (A) 0.2 k/uL (0-0.7); Eosinophils % (A) 2 %; HCT 27.7 % (39.0-53.0); HGB 8.7 gm/dL (13.0-17.5); Lymphocytes # (A) 1.7 k/uL (1.0-4.8); Lymphocytes % (A) 19 %; MCH 27.5 pg (25.0-35.0); MCHC 31.4 g/dL (31.0-37.0); MCV 87.6 fL (80.0-100.0); Mean Platelet Volume 7.3; Monocytes # (A) 0.6 k/uL (0-1.0); Monocytes % (A) 6 %; Neutrophils # (A) 6.7 k/uL (1.3-7.7); Neutrophils % (A) 72 %; Platelet Count 385 k/uL (150-450); RBC 3.16 m/uL (4.30-5.90); WBC 9.3 k/uL (3.8-10.6)
--- NOTE | 2019-02-05 16:08 | ED ---
Male Urogenital HPI <Raul Larkin - Last Filed: 02/05/19 16:34> - General Source: patient Mode of arrival: EMS Limitations: no limitations <Valencia Avila - Last Filed: 02/05/19 17:11> - General Chief complaint: Urogenital Stated complaint: Blood in urine Time Seen by Provider: 02/05/19 15:05 - History of Present Illness Initial comments: 83-year-old male with past medical history of prostate cancer, liver lesions, pulmonary embolism, recent spinal surgery on our requests currently at postoperative rehab at [facility]. Patient states that he has had a barakat catheter in place. He recently began experiencing blood in the catheter, nurses at [facility] were unable to flush catheter and patient was complaining of lower mid abdomen bladder discomfort. Concern for clot in catheter and was sent to the ER for evaluation. Patient was draining upon discharge and given urology f/u. Patient HgB at that time appeared close to baseline of 10. Patient states he felt well upon discharge, and was agreeable however [facility] refused patient upon return and patient was brought back to the ER. They stated refusal was due to clots in barakat as well as blood around head of penis, near insertion site. Patient denies any recent fever, chills, shortness of breath, chest pain, back pain, abdominal pain, nausea or vomiting, numbness or tingling, dysuria or hematuria, constipation or diarrhea, headaches or visual changes, or any other complaints. Upon arrival pt BP lower end of normal, pt denies symptoms-stating he is feeling well. HR elevated. (Valencia Avila) - Related Data Home Medications Medication Instructions Recorded Confirmed Levothyroxine Sodium [Synthroid] 100 mcg PO DAILY@0600 01/09/18 02/05/19 Pantoprazole Sodium [Protonix] 40 mg PO DAILY@0600 01/09/18 02/05/19 Tamsulosin HCl [Flomax] 0.4 mg PO DAILY 01/09/18 02/05/19 Cholecalciferol [Vitamin D3] 1,000 unit PO DAILY 12/02/18 02/05/19 Apixaban [Eliquis] 5 mg PO BID 01/26/19 02/05/19 Artificial Tears-Hypromellose 1 drops BOTH EYES Q4H 01/26/19 02/05/19 [Artificial Tear Drops] Cyclobenzaprine [Flexeril] 10 mg PO TID PRN 01/26/19 02/05/19 Diltiazem Cd [Cardizem CD] 120 mg PO DAILY 01/26/19 02/05/19 Ferrous Sulfate [Iron (65 MG 325 mg PO DAILY 01/26/19 02/05/19 Elemental)] Lactose-Reduced Food [Ensure Plus] 1 can PO BID@0900,1700 01/26/19 02/05/19 Meropenem [Merrem] 1 gm IVPB Q8H 01/26/19 02/05/19 Metoprolol Tartrate [Lopressor] 25 mg PO BID 01/26/19 02/05/19 QUEtiapine [SEROquel] 25 mg PO HS 01/26/19 02/05/19 Z-Guard 1 applic TOPICAL Q12H 02/05/19 02/05/19 fentaNYL 25MCG/HR PATCH [Duragesic 1 patch TRANSDERM Q72H 02/05/19 02/05/19 25MCG/HR] Previous Rx's Medication Instructions Recorded Acetaminophen Tab [Tylenol] 650 mg PO Q6HR PRN tab 10/25/18 Polyethylene Glycol 3350 [Miralax] 17 gm PO DAILY PRN powd.pack 12/14/18 Gabapentin [Neurontin] 300 mg PO TID #30 cap 01/30/19 Allergies Allergy/AdvReac Type Severity Reaction Status Date / Time No Known Allergies Allergy Verified 02/05/19 14:59 Review of Systems ROS Other: All systems not noted in ROS Statement are negative. <Raul Larkin - Last Filed: 02/05/19 16:34> ROS Other: All systems not noted in ROS Statement are negative. <Valencia Avila - Last Filed: 02/05/19 17:11> ROS Statement: Those systems with pertinent positive or pertinent negative responses have been documented in the HPI. Past Medical History Past Medical History: Atrial Flutter, Cancer, GERD/Reflux, Hyperlipidemia, Hypertension, Prostate Disorder, Thyroid Disorder Additional Past Medical History / Comment(s): SKIN CANCER, prostate & liver cancer History of Any Multi-Drug Resistant Organisms: VRE Date of last positivie culture/infection: 12/19/18 MDRO Source:: Urine-VRE Past Surgical History: Adenoidectomy, Back Surgery, Hernia Repair, Joint Replacement, Prostate Surgery, Tonsillectomy Additional Past Surgical History / Comment(s): PARATHYROID SX, ESOPHAGEAL SX FOR ACHALASIA,VARICOSE VEIN SX,BILAT CATARAT SX, spinal abscess drainage, Past Anesthesia/Blood Transfusion Reactions: No Reported Reaction Past Psychological History: No Psychological Hx Reported Smoking Status: Never smoker Past Alcohol Use History: Rare Past Drug Use History: None Reported - Past Family History Mother Family Medical History: Cancer Additional Family Medical History / Comment(s): COLON <Valencia Avila - Last Filed: 02/05/19 17:11> General Exam Limitations: no limitations <Valencia Avila - Last Filed: 02/05/19 17:11> - General Exam Comments Initial Comments: General: The patient is awake and alert, in no distress, and does not appear acutely ill. Eye: +3 mm pupils are equal, round and reactive to light, extra-ocular movements are intact. No nystagmus. There is normal conjunctiva bilaterally. No signs of icterus. Ears, nose, mouth and throat: There are moist mucous membranes and no oral lesions. Neck: The neck is supple, there is no tenderness or JVD. Cardiovascular: There is a regular rate and rhythm. No murmur, rub or gallop is appreciated. Respiratory: Lungs are clear to auscultation, respirations are non-labored, breath sounds are equal. No wheezes, stridor, rales, or rhonchi Gastrointestinal: Soft, non-distended, non-tender abdomen without masses or organomegaly noted. There is no rebound or guarding present. No CVA tenderness. Bowel sounds are unremarkable. Barakat in place, blood dried around meatus. Clots in catheter bag. Musculoskeletal: Normal ROM, no tenderness. Strength 5/5. Sensation intact. Radial pulses equal bilaterally 2+. Neurological: A&O x 3. CN II-XII intact, There are no obvious motor or sensory deficits. Coordination appears grossly intact. Speech is normal. Skin: Skin is warm and dry and no rashes or lesions are noted. Psychiatric: Cooperative, appropriate mood & affect, normal judgment. (Valencia Avila) Course Vital Signs 02/05/19 02/05/19 02/05/19 15:00 15:30 16:00 Temperature 98.9 F Pulse Rate 114 H 104 H 105 H Respiratory 20 16 16 Rate Blood Pressure 98/64 98/64 98/64 O2 Sat by Pulse 99 99 98 Oximetry Medical Decision Making - Lab Data Result diagrams: 02/05/19 15:39 <Raul Larkin - Last Filed: 02/05/19 16:34> - Lab Data Result diagrams: 02/05/19 15:39 <Valencia Avila - Last Filed: 02/05/19 17:11> - Medical Decision Making Patient reevaluated and resting comfortably in bed. Abdomen is soft and nontender. There is some retention based on bladder scan. Nursing staff will irrigate Barakat. Patient does have some decrease of hemoglobin. Patient is also somewhat tachycardic. Patient will be admitted for IV antibiotics and observation. Case was discussed in detail Dr. Blevins, who will admit covering for hospital call. (Raul Larkin) CBC was repeated, revealing a downward trending hemoglobin. Patient is on eliquis. Instructed to hold next dose. Patient continues to have clots in catheter bag. Pt HR elevated, no changed in EKG from that of 01/26/19, obtained due to tachycardia-reviewed by attending provider Dr. Larkin. Patient will be admitted for low HgB, UTI, urinary retention. Abx started. Urology on consult. Patient is agreeable with admission, all questions answered to the best of my ability. Patient was evaluated in person by attending provider Dr. Larkin in person. Clots still present in acid, will continue irrigation. (Valencia Avila) - Lab Data Lab Results 02/05/19 Range/Units 15:39 WBC 9.3 (3.8-10.6) k/uL RBC 3.16 L (4.30-5.90) m/uL Hgb 8.7 L (13.0-17.5) gm/dL Hct 27.7 L (39.0-53.0) % MCV 87.6 (80.0-100.0) fL MCH 27.5 (25.0-35.0) pg MCHC 31.4 (31.0-37.0) g/dL RDW 17.0 H (11.5-15.5) % Plt Count 385 (150-450) k/uL Neutrophils % 72 % Lymphocytes % 19 % Monocytes % 6 % Eosinophils % 2 % Basophils % 1 % Neutrophils # 6.7 (1.3-7.7) k/uL Lymphocytes # 1.7 (1.0-4.8) k/uL Monocytes # 0.6 (0-1.0) k/uL Eosinophils # 0.2 (0-0.7) k/uL Basophils # 0.0 (0-0.2) k/uL Anisocytosis Slight Disposition <Raul Larkin - Last Filed: 02/05/19 16:34> Is patient prescribed a controlled substance at d/c from ED?: No Time of Disposition: 16:55 Decision to Admit Reason: Admit from EC Decision Date: 02/05/19 Decision Time: 16:55 <Valencia Avila - Last Filed: 02/05/19 17:11> Clinical Impression: UTI (urinary tract infection), Urinary retention, Hematuria, Blood hemoglobin level less than 10 grams/deciliter Disposition: ADMITTED IP TO THIS HOSP Condition: Stable Referrals: Leonard Bowser MD [Primary Care Provider] - 1-2 days
[2019-02-05] MEDS ORDERED: NALOXONE 0.4 MG/ML 1 ML VIAL IV PRN (16:51)
[2019-02-05] MEDS ORDERED: cefTRIAXone 1,000 MG VIAL (IM USE) IM STA (16:54)
[2019-02-05] MEDS ORDERED: ACETAMINOPHEN TAB 325 MG TAB PO PRN (17:47)
[2019-02-05] MEDS: SODIUM CHLORIDE 0.9% 1,000 ML IV SCH (17:50)
[2019-02-05] MEDS ORDERED: cefTRIAXone IN SWFI 1,000 MG/10 ML SYRINGE IVP STA (18:04)
--- NOTE | 2019-02-05 18:36 | P.HPIM ---
History of Present Illness H&P Date: 02/05/19 Chief Complaint: Hematuria 83-year-old male with PMH of atrial flutter, hypothyroidism, prostate cancer, pulmonary embolus, recent spinal surgery for abscess/osteomyelitis/discitis currently in subacute rehab at [facility]. Patient reports that he has had this catheter in place now for the past 3-4 months. Patient reports being admitted on 01/27/2019 for a clogged Sherwood catheter. His catheter was declogged and he was sent back [facility]. Nursing staff at [facility] had noticed further clotting an increase hematuria prompting them to send the patient back to the ED. Patient has no complaints at this time. He denies any headaches, lower extremity edema, nausea, vomiting, fever, cough, chills, chest pain, dizziness, shortness of breath, palpitations, changes in bowel habits. He reports that his appetite is good. Patient does report lower extremity weakness, left greater than the right as a result of surgery. Patient does report that he is progressively improved s buck discharge from [facility] after his spine surgery. In the ED, patient was found to have a hemoglobin of 8.7. This is drastically change from a hemoglobin of 10 one day ago. Patient is admitted for hematuria, urinary tract infection, urology on consult. Past Medical History Past Medical History: Atrial Flutter, Cancer, GERD/Reflux, Hyperlipidemia, Hypertension, Prostate Disorder, Thyroid Disorder Additional Past Medical History / Comment(s): SKIN CANCER, prostate & liver cancer History of Any Multi-Drug Resistant Organisms: VRE Date of last positivie culture/infection: 12/19/18 MDRO Source:: Urine-VRE Past Surgical History: Adenoidectomy, Back Surgery, Hernia Repair, Joint Replacement, Prostate Surgery, Tonsillectomy Additional Past Surgical History / Comment(s): PARATHYROID SX, ESOPHAGEAL SX FOR ACHALASIA,VARICOSE VEIN SX,BILAT CATARAT SX, spinal abscess drainage, Past Anesthesia/Blood Transfusion Reactions: No Reported Reaction Past Psychological History: No Psychological Hx Reported Smoking Status: Never smoker Past Alcohol Use History: Rare Past Drug Use History: None Reported - Past Family History Mother Family Medical History: Cancer Additional Family Medical History / Comment(s): COLON Medications and Allergies Home Medications Medication Instructions Recorded Confirmed Type Levothyroxine Sodium [Synthroid] 100 mcg PO DAILY@0600 01/09/18 02/05/19 History Pantoprazole Sodium [Protonix] 40 mg PO DAILY@0600 01/09/18 02/05/19 History Tamsulosin HCl [Flomax] 0.4 mg PO DAILY 01/09/18 02/05/19 History Cholecalciferol [Vitamin D3] 1,000 unit PO DAILY 12/02/18 02/05/19 History Apixaban [Eliquis] 5 mg PO BID 01/26/19 02/05/19 History Diltiazem Cd [Cardizem CD] 120 mg PO DAILY 01/26/19 02/05/19 History Ferrous Sulfate [Iron (65 MG 325 mg PO DAILY 01/26/19 02/05/19 History Elemental)] Lactose-Reduced Food [Ensure Plus] 1 can PO BID@0900,1700 01/26/19 02/05/19 History Metoprolol Tartrate [Lopressor] 25 mg PO BID 01/26/19 02/05/19 History QUEtiapine [SEROquel] 25 mg PO HS 01/26/19 02/05/19 History Allergies Allergy/AdvReac Type Severity Reaction Status Date / Time No Known Allergies Allergy Verified 02/05/19 14:59 Physical Exam Vitals: Vital Signs Temp Pulse Resp BP Pulse Ox 02/05/19 17:30 97 18 138/70 100 02/05/19 17:00 96 18 102/70 100 02/05/19 16:30 96 18 98/74 98 02/05/19 16:00 105 H 16 98/64 98 02/05/19 15:30 104 H 16 98/64 99 02/05/19 15:00 98.9 F 114 H 20 98/64 99 Intake and Output 02/05/19 02/05/19 02/05/19 06:59 14:59 22:59 Other: Voiding Method Indwelling Catheter Weight 81.647 kg General: [non toxic], [no distress], [appears at stated age] Derm: [warm], [dry] Head: [atraumatic], [normocephalic], [symmetric] Eyes: [EOMI], [no lid lag], [anicteric sclera] Mouth: [no lip lesion], [mucus membranes moist] Cardiovascular: [S1S2 reg], [tachycardic], [positive DP pulse bilateral] Lungs: [CTA bilateral], [no rhonchi, no rales] , [no accessory muscle use] Abdominal: [soft], [ nontender to palpation], [no guarding], [gross hematuria in Sherwood] Ext: [no gross muscle atrophy], [no edema], [no contractures] Neuro: [ CN II-XI grossly intact], [left lower extremity 3 out of 5, right lower extremity 4-5 strength] Psych: [Alert], [oriented], [appropriate affect] Results CBC & Chem 7: 02/05/19 15:39 Labs: Abnormal Lab Results - Last 24 Hours (Table) 02/05/19 Range/Units 15:39 RBC 3.16 L (4.30-5.90) m/uL Hgb 8.7 L (13.0-17.5) gm/dL Hct 27.7 L (39.0-53.0) % RDW 17.0 H (11.5-15.5) % Thrombosis Risk Factor Assmnt - Choose All That Apply Any of the Below Risk Factors Present?: Yes Each Factor Represents 1 point: Obesity (BMI >25) Other Risk Factors: Yes Each Risk Factor Represents 3 Points: Age 75 years or older Thrombosis Risk Factor Assessment Total Risk Factor Score: 4 Thrombosis Risk Factor Assessment Level: Moderate Risk Assessment and Plan Assessment: Urosepsis: Tachycardic as high as 105, hypotensive with a SBP in the 90s, source of infection. Discontinue ceftriaxone as patient has a history of resistant and start cefepime 1 g IV twice a day. Continue Flomax. Continue normal saline at 75 mL per hour. Tylenol as needed for fever. Follow-up lactic acid. Follow-up ID consult. Follow-up urology consult. Anemia: Likely secondary to urinary source. Hemoglobin trending down from 10.5- 8.7 over 1 day. Daily CBC. Transfuse if hemoglobin less than 7. Hold anticoagulation. Atrial fibrillation: Hold Eliquis due to urinary bleed. Telemetry monitoring. Keep potassium greater than 4 magnesium greater than 2. Rate control with diltiazem and metoprolol. Hypothyroidism: Continue Synthroid 100 g by mouth daily. Prostate cancer: Follows oncology at [facility]. Received dose of Lupro n on 01/29/2019. 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 Follow oncology in the outpatient setting. 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 He was following Dr. Acosta in the outpatient setting. Will consult ID for further recommendations. Follow PT and OT recommendations. Plans to go back to subacute rehab in [facility]. Patient admitted for urosepsis and hematuria. Started on IV antibiotics. Infectious disease and urology on consult. Likely DC in 2-3 days. Patient states that he would like his Loreta to be his decision maker indicates that he can't make decisions for himself. Patient also reports that he would like to be DO NOT RESUSCITATE but is agreeable to intubation if need be.
[2019-02-05] MEDS: SODIUM CHLORIDE 0.9% 500 ML 500 ML IV SCH ×3 (20:08→21:44)
[2019-02-05] MEDS: CEFEPIME 1 GM in SODIUM CHLORIDE 0.9% 50 ML IVPB SCH (20:10)
[2019-02-05] MEDS: METOPROLOL TARTRATE 25 MG TAB PO SCH (21:42)
[2019-02-06 00:41] LABS: Anisocytosis Slight; Basophils % (A) 1 %; Eosinophils # (A) 0.3 k/uL (0-0.7); Eosinophils % (A) 4 %; HCT 22.2 % (39.0-53.0); Hypochromasia Slight; Lymphocytes # (A) 1.7 k/uL (1.0-4.8); Lymphocytes % (A) 22 %; MCH 27.3 pg (25.0-35.0); MCHC 31.4 g/dL (31.0-37.0); MCV 87.1 fL (80.0-100.0); Mean Platelet Volume 7.3; Monocytes # (A) 0.5 k/uL (0-1.0); Monocytes % (A) 7 %; Neutrophils # (A) 4.9 k/uL (1.3-7.7); Neutrophils % (A) 65 %; Platelet Count 296 k/uL (150-450); RBC 2.55 m/uL (4.30-5.90); WBC 7.5 k/uL (3.8-10.6)
[2019-02-06] MEDS: LEVOTHYROXINE 100 MCG TAB PO SCH (05:15)
[2019-02-06] MEDS: PANTOPRAZOLE 40 MG TABLET PO SCH (05:15)
[2019-02-06] MEDS: SODIUM CHLORIDE 0.9% 1,000 ML IV SCH ×3 (05:17→18:57)
[2019-02-06 07:32] LABS: Anisocytosis Slight; Basophils % (A) 1 %; Eosinophils # (A) 0.2 k/uL (0-0.7); Eosinophils % (A) 3 %; HCT 25.7 % (39.0-53.0); Hypochromasia Slight; Lymphocytes # (A) 1.5 k/uL (1.0-4.8); Lymphocytes % (A) 21 %; MCH 27.4 pg (25.0-35.0); MCHC 31.1 g/dL (31.0-37.0); Mean Platelet Volume 6.9; Monocytes # (A) 0.4 k/uL (0-1.0); Monocytes % (A) 6 %; Neutrophils # (A) 4.9 k/uL (1.3-7.7); Neutrophils % (A) 68 %; Platelet Count 313 k/uL (150-450); RBC 2.92 m/uL (4.30-5.90); RDW 16.5 % (11.5-15.5); WBC 7.2 k/uL (3.8-10.6)
[2019-02-06] MEDS: DILTIAZEM CD 120 MG CAP.ER.24H PO SCH (08:21)
[2019-02-06] MEDS: CEFEPIME 1 GM in SODIUM CHLORIDE 0.9% 50 ML IVPB SCH (08:21)
[2019-02-06] MEDS: METOPROLOL TARTRATE 25 MG TAB PO SCH ×2 (08:21→22:44)
[2019-02-06] MEDS: TAMSULOSIN 0.4 MG CAP.ER.24H PO SCH (08:21)
[2019-02-06] MEDS: FERROUS SULFATE 325 MG TAB PO SCH (08:21)
--- NOTE | 2019-02-06 09:44 | P.CONS ---
History of Present Illness - Reason for Consult Consult date: 02/06/19 Urosepsis, history of epidural abscess - History of Present Illness This is an 83-year-old male is known to the infectious disease service because of his many bouts of urinary tract infection. The patient has a long- standing history of a very large prostate with difficulties with some urinary retention resulting urinary tract infection. Recent infections have been with E. coli with no oral options and is receiving a couple of courses of outpatient intravenous antibiotic therapy and has done well. In September he was hospitalized with some back pain evaluations were performed showing evidence of degenerative disease and with local care and treatment of urinary infection he improved. 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 Percutaneous biopsy at this facility was performed and was nondiagnostic. He was seen at [facility] also with nondiagnostic testing. He eventually was seen at [facility] where biopsy was successful of the liver which reveal evidence of adenocarcinoma, and there is also evidence of enlarged lymph nodes in the pelvis which were di agnostic of prostate carcinoma. 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 He was seen by orthopedic spine underwent the surgical debridement. The somewhat drug- resistant E. coli was isolated from the surgical specimens from the debridement of the spine and he completed 8 weeks of intravenous antibiotic therapy for this extensive infection. Patient was recently hospitalized January 26 are January 30 which time he was treated for lumbar discitis and discharge to [facility] on merop enem to complete 14 days. Patient was sent in to [facility] emergency center the early hours of February 05 as he was having significant blood clots in his Sherwood catheter and not able to pass urine. They tried to irrigate at the group home without success apparently was removed and could not successfully perform straight cath. Patient has had ongoing bladder spasms and pressure in the lower abdomen. Sherwood catheter was replaced in the ER with no urine return and ultrasound revealed catheter was lodged in collection of blood clots. This was flushed and was then draining pink urine. Unfortunately a patient that had a fall in the ER and he underwent a CAT scan of the head and cervical spine this found no acute bleeding or dislocation and patient was transferred back to [facility]. Patient states he arrived back to [facility] in because he was still having bleeding and blood clots in the Sherwood catheter, staff sent him back to the ER and patient was subsequently admitted to the [facility] floor and started on cefepime. He has been afebrile, heart rate 114, lactic acid initially 2.1 and repeat 1.5. Patient was ordered for transfusion of 2 units of RBCs for hemoglobin of 7 and repeat this morning is at 8 prior to transfusion. The patient continues to have blood clots draining from the Sherwood but no output this morning and call in place with urology. He is scheduled for renal ultrasound. PICC line has been functioning without difficulty in the left upper arm. Review of Systems All systems: negative Constitutional: Denies anorexia, Denies chills, Denies fatigue, Denies fever, Denies lethargy, Denies poor appetite, Denies weakness Eyes: denies blurred vision, denies pain Ears, nose, mouth and throat: Denies dysphagia, Denies headache, Denies mouth pain, Denies sore throat, Denies vertigo Cardiovascular: Denies chest pain, Denies shortness of breath, Denies syncope Respiratory: Denies cough, Denies cough with sputum, Denies dyspnea, Denies excessive sputum, Denies hemoptysis, Denies home oxygen, Denies wheezing Gastrointestinal: Reports abdominal pain, Denies constipation, Denies diarrhea, Denies loss of appetite, Denies melena, Denies nausea, Denies vomiting Genitourinary: Reports hematuria, Reports urinary retention, Denies dysuria, De nies flank pain Musculoskeletal: Denies frequent falls, Denies gait dysfunction, Denies myalgias Integumentary: Denies pruritus, Denies rash, Denies wounds Neurological: Denies numbness, Denies weakness Psychiatric: Denies anxiety, Denies depression Endocrine: Denies fatigue, Denies weight change 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 No tobacco use. No experience. No extensive travel. Smoking Status: Never smoker Past Alcohol Use History: Rare Past Drug Use History: None Reported - Past Family History Mother Family Medical History: Cancer Additional Family Medical History / Comment(s): COLON Medications and Allergies Home Medications Medication Instructions Recorded Confirmed Type Levothyroxine Sodium [Synthroid] 100 mcg PO DAILY@0600 01/09/18 02/05/19 History Pantoprazole Sodium [Protonix] 40 mg PO DAILY@0600 01/09/18 02/05/19 History Tamsulosin HCl [Flomax] 0.4 mg PO DAILY 01/09/18 02/05/19 History Cholecalciferol [Vitamin D3] 1,000 unit PO DAILY 12/02/18 02/05/19 History Apixaban [Eliquis] 5 mg PO BID 01/26/19 02/05/19 History Diltiazem Cd [Cardizem CD] 120 mg PO DAILY 01/26/19 02/05/19 History Ferrous Sulfate [Iron (65 MG 325 mg PO DAILY 01/26/19 02/05/19 History Elemental)] Lactose-Reduced Food [Ensure Plus] 1 can PO BID@0900,1700 01/26/19 02/05/19 History Metoprolol Tartrate [Lopressor] 25 mg PO BID 01/26/19 02/05/19 History QUEtiapine [SEROquel] 25 mg PO HS 01/26/19 02/05/19 History Allergies Allergy/AdvReac Type Severity Reaction Status Date / Time No Known Allergies Allergy Verified 02/05/19 14:59 Physical Exam Vitals: Vital Signs Temp Pulse Pulse Resp BP BP Pulse Ox 02/06/19 07:11 98.4 F 102 H 14 176/93 96 02/06/19 05:25 98.4 F 86 16 139/70 98 02/06/19 04:10 98.3 F 83 15 144/73 97 02/06/19 03:40 98.4 F 85 15 123/77 94 L 02/06/19 03:30 98.3 F 88 16 120/65 02/06/19 03:19 98.1 F 91 16 109/73 100 02/06/19 00:21 16 02/06/19 00:04 99.6 F 86 16 118/73 97 02/05/19 21:47 16 02/05/19 18:33 97.9 F 103 H 16 147/80 99 02/05/19 17:30 97 18 138/70 100 02/05/19 17:00 96 18 102/70 100 02/05/19 16:30 96 18 98/74 98 02/05/19 16:00 105 H 16 98/64 98 02/05/19 15:30 104 H 16 98/64 99 02/05/19 15:00 98.9 F 114 H 20 98/64 99 Intake and Output 02/05/19 02/06/19 02/06/19 22:59 06:59 14:59 Intake Total 2290 1345 420 Output Total 690 300 Balance 2290 655 120 Intake: Intake, IV Titration 1750 525 Amount Cefepime 1 gm In Sodium 100 Chloride 0.9% 50 ml @ 100 mls/hr IVPB Q12HR DIPESH Rx #:[id number] Sodium Chloride 0.9% 1, 150 525 000 ml @ 75 mls/hr IV . [id number] DIPESH Rx#:[id number] Sodium Chloride 0.9% 500 1500 ml 500 ml @ 1000 mls/hr IV Q35M DIPESH Rx#:[id number] Oral 540 200 420 Blood Product 620 Rc As-1 Unit 310 [id number] Output: Urine 690 300 Other: Voiding Method Indwelling Catheter Indwelling Catheter # Voids 1 1 # Bowel Movements 2 1 Weight 81.647 kg This is an 83-year-old male. He is resting in bed and appears to be comfortable and in no acute distress. HEENT: Anicteric conjunctiva are pink and moist nasal mucosa grossly intact without significant lesions, there is no thrush. Neck: The neck is supple without significant lymphadenopathy or thyromegaly. Lungs: Good bilateral air entry without significant crackles or wheezing. There is no significant bronchial sounds. There is no egophony or dullness. Heart: Regular rate and rhythm . There is no significant murmur click or rub, PMI was nondisplaced. Abdomen: Positive bowel sounds soft and nontender without palpable masses or organomegaly. There was no guarding or rebound. Sherwood catheter has small amount of blood-tinged urine. Extremities: PICC line to the left upper arm without tenderness, erythema. Dorsalis pedis +2 bilaterally. No pedal edema. Neuro: Awake alert oriented to person place and time. There are no acute new gross focal sensory motor deficits. Results Results: Laboratory Results WBC 7.2 k/uL (3.8-10.6) 02/06/19 06:53 RBC 2.92 m/uL (4.30-5.90) L 02/06/19 06:53 Hgb 8.0 gm/dL (13.0-17.5) L 02/06/19 06:53 Hct 25.7 % (39.0-53.0) L 02/06/19 06:53 MCV 88.0 fL (80.0-100.0) 02/06/19 06:53 MCH 27.4 pg (25.0-35.0) 02/06/19 06:53 MCHC 31.1 g/dL (31.0-37.0) 02/06/19 06:53 RDW 16.5 % (11.5-15.5) H 02/06/19 06:53 Plt Count 313 k/uL (150-450) 02/06/19 06:53 Neutrophils % 68 % 02/06/19 06:53 Lymphocytes % 21 % 02/06/19 06:53 Monocytes % 6 % 02/06/19 06:53 Eosinophils % 3 % 02/06/19 06:53 Basophils % 1 % 02/06/19 06:53 Neutrophils # 4.9 k/uL (1.3-7.7) 02/06/19 06:53 Lymphocytes # 1.5 k/uL (1.0-4.8) 02/06/19 06:53 Monocytes # 0.4 k/uL (0-1.0) 02/06/19 06:53 Eosinophils # 0.2 k/uL (0-0.7) 02/06/19 06:53 Basophils # 0.0 k/uL (0-0.2) 02/06/19 06:53 Hypochromasia Slight 02/06/19 06:53 Anisocytosis Slight 02/06/19 06:53 Lactic Ac Sepsis Rflx Y 02/05/19 19:10 Plasma Lactic Acid Zane 1.5 mmol/L (0.7-2.0) 02/05/19 22:30 Blood Type O Positive 02/06/19 00:26 Blood Type Recheck No 02/06/19 00:26 Antibody Screen NEGATIVE 02/06/19 00:26 Crossmatch See Detail 02/06/19 00:26 Spec Expiration Date 02/09/2019232502/06/19 00:26 CBC & Chem 7: 02/06/19 06:53 Labs: Abnormal Lab Results - Last 24 Hours (Table) 02/05/19 02/05/19 02/06/19 Range/Units 15:39 18:32 00:25 RBC 3.16 L 2.55 L (4.30-5.90) m/uL Hgb 8.7 L 7.0 L D (13.0-17.5) gm/dL Hct 27.7 L 22.2 L (39.0-53.0) % RDW 17.0 H 17.0 H (11.5-15.5) % Plasma Lactic Acid Zane 2.1 H* (0.7-2.0) mmol/L Crossmatch 02/06/19 02/06/19 Range/Units 00:26 06:53 RBC 2.92 L (4.30-5.90) m/uL Hgb 8.0 L (13.0-17.5) gm/dL Hct 25.7 L (39.0-53.0) % RDW 16.5 H (11.5-15.5) % Plasma Lactic Acid Zane (0.7-2.0) mmol/L Crossmatch See Detail Assessment and Plan Plan: This is an 83-year-old male patient who presented to Hospital due to nonfunctioning Sherwood catheter secondary to bleeding, blood clots. Patient has been treated for discitis of the lumbar spine to complete a 2 week course which will be done on February 13 with meropenem which will be resumed. Urology is on consult. A repeat urine culture is in progress. Continue supportive care. Further recommendations as patient progresses. The above dictated assessment and findings were discussed with Dr. Acosta. The impression and plan of care have been directed as dictated. Saima Daley nurse practitioner acting as scribe for Dr. Acosta.
[2019-02-06] MEDS ORDERED: LIDOCAINE URO-JET JELLY 2% 5 ML KIT URETHRAL ONE (10:16)
[2019-02-06] MEDS ORDERED: LIDOCAINE 2% INJ 20 MG/ML (20 ML MDV) SQ STA (10:22)
[2019-02-06] MEDS ORDERED: LIDOCAINE 2% (PF) 20 MG/ML 2 ML AMP SQ STA (10:23)
--- NOTE | 2019-02-06 10:47 | US ---
EXAMINATION TYPE: US kidneys/renal and bladder DATE OF EXAM: 02/06/2019 COMPARISON: Ultrasound dated 12/19/2017, CT abdomen pelvis 12/20/2017 CLINICAL HISTORY: hematuria. Gross hematuria EXAM MEASUREMENTS: Right Kidney: 11.7 x 5.6 x 5.4 cm Left Kidney: 12.3 x 6.1 x 6.1 cm Right Kidney: Cystic lesion upper pole= 1.3 x 1.1 x 1.4 cm/ possible parapelvic cyst= 1.1 x 1.3 x 1.3 cm Left Kidney: Cyst upper pole= 1.0 x 0.9 x 1.0 cm/ possible slightly dilated renal pelvis Bladder: Large, complex area post bladder wall= 13.6 x 7.8 x 8.3 cm Cystic lesion in the medullary aspect of the upper pole the right kidney was not seen on prior ultras ound. Prostate is markedly enlarged and shows an inferior impression on the urinary bladder. Possible, ill-defined lesions within right lobe of liver IMPRESSION: Mild hydronephrosis left kidney. Consider chronic bladder outlet obstruction, there is marked prostat ic enlargement. Findings compatible with metastatic disease to the liver.
[2019-02-06 11:59] LABS: Anion Gap 4 mmol/L; Blood Urea Nitrogen 19 mg/dL (9-20); Calcium 9.8 mg/dL (8.4-10.2); Carbon Dioxide 26 mmol/L (22-30); Chloride 110 mmol/L (98-107); Glucose 100 mg/dL (74-99); Potassium 4.2 mmol/L (3.5-5.1); Sodium 140 mmol/L (137-145)
[2019-02-06 12:07] LABS: Anisocytosis Slight; HCT 25.1 % (39.0-53.0); HGB 7.8 gm/dL (13.0-17.5); Hypochromasia Slight; MCHC 30.9 g/dL (31.0-37.0); MCV 87.5 fL (80.0-100.0); Mean Platelet Volume 7.1; Platelet Count 285 k/uL (150-450); RBC 2.87 m/uL (4.30-5.90); RDW 16.6 % (11.5-15.5)
--- NOTE | 2019-02-06 12:12 | P.PN ---
Subjective Progress Note Date: 02/06/19 Principal diagnosis: Hematuria Patient was seen and examined. Reports of Sherwood catheter being clogged overnight causing lower abdominal cramping. Sherwood changes morning and MADELINE minor scussed case with urology, to evaluate this afternoon. Hemoglobin trended down to 7 this morning, transfuse 1 unit PRBC. Patient denies any chest pain, dizziness, shortness of breath or palpitations. Objective - Vital Signs Vital signs: Vital Signs Temp 98.4 F 02/06/19 07:11 Pulse 102 H 02/06/19 07:11 Resp 14 02/06/19 07:11 BP 176/93 02/06/19 07:11 Pulse Ox 96 02/06/19 07:11 Intake & Output 02/05/19 02/06/19 02/06/19 18:59 06:59 18:59 Intake Total 3635 420 Output Total 690 1000 Balance 2945 -580 Weight 81.647 kg Intake: Intake, IV Titration 2275 Amount Cefepime 1 gm In Sodium 100 Chloride 0.9% 50 ml @ 100 mls/hr IVPB Q12HR DIPESH Rx #:[id number] Sodium Chloride 0.9% 1, 675 000 ml @ 75 mls/hr IV . [id number] DIPESH Rx#:[id number] Sodium Chloride 0.9% 500 1500 ml 500 ml @ 1000 mls/hr IV Q35M DIPESH Rx#:[id number] Oral 740 420 Blood Product 620 Rc As-1 Unit 310 [id number] Output: Urine 690 1000 Uretheral (Sherwood) 700 Other: Voiding Method Indwelling Catheter Indwelling Catheter Indwelling Catheter # Voids 1 1 # Bowel Movements 2 1 - Exam General: [non toxic], [no distress], [appears at stated age] Derm: [warm], [dry] Head: [atraumatic], [normocephalic], [symmetric] Eyes: [EOMI], [no lid lag], [anicteric sclera] Mouth: [no lip lesion], [mucus membranes moist] Cardiovascular: [S1S2 reg], [tachycardic], [positive DP pulse bilateral] Lungs: [CTA bilateral], [no rhonchi, no rales] , [no accessory muscle use] Abdominal: [soft], [ nontender to palpation], [no guarding], [gross hematuria in Sherwood] Ext: [no gross muscle atrophy], [no edema], [no contractures] Neuro: [left lower extremity 3 out of 5, right lower extremity 4-5 strength] Psych: [Alert], [oriented], [appropriate affect] - Labs CBC & Chem 7: 02/06/19 06:53 Labs: Abnormal Lab Results - Last 24 Hours (Table) 02/05/19 02/05/19 02/06/19 Range/Units 15:39 18:32 00:25 RBC 3.16 L 2.55 L (4.30-5.90) m/uL Hgb 8.7 L 7.0 L D (13.0-17.5) gm/dL Hct 27.7 L 22.2 L (39.0-53.0) % RDW 17.0 H 17.0 H (11.5-15.5) % Plasma Lactic Acid Zane 2.1 H* (0.7-2.0) mmol/L Crossmatch 02/06/19 02/06/19 Range/Units 00:26 06:53 RBC 2.92 L (4.30-5.90) m/uL Hgb 8.0 L (13.0-17.5) gm/dL Hct 25.7 L (39.0-53.0) % RDW 16.5 H (11.5-15.5) % Plasma Lactic Acid Zane (0.7-2.0) mmol/L Crossmatch See Detail Assessment and Plan Assessment: Assessment and Plan Urosepsis: Tachycardic as high as 105, hypotensive with a SBP in the 90s, source of infection. Initially started on ceftriaxone which was discontinued for cefepime due to history of resistance, changed by infectious disease to meropenem. Continue Flomax. Continue normal saline at 75 mL per hour. Tylenol as needed for fever. Lactic acid 2.1-1.5 on repeat. Follow-up ID consult. Follow-up urology consult. Anemia: Likely secondary to urinary source, acute blood loss. Hemoglobin tren ding down from 10.5-8.7-7.0. Transfuse 1 unit PRBC, repeat hemoglobin 8. Daily CBC. Transfuse if hemoglobin less than 7. Hold anticoagulation. Atrial fibrillation: Hold Eliquis due to urinary bleed. Telemetry monitoring. Keep potassium greater than 4 magnesium greater than 2. Rate control with diltiazem and metoprolol. Hypothyroidism: Continue Synthroid 100 g by mouth daily. Prostate cancer: Follows oncology at [facility]. Received dose of Lupron on 01/29/2019. 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 Follow oncology consult. 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 Acosta in the outpatient setting, continue meropenem until February 13. Follow PT and OT recommendations. Plans to go back to subacute rehab in [facility]. Patient admitted for urosepsis and hematuria. Started on IV antibiotics. Transfused 1 unit PRBC. Infectious disease and urology on consult. Follow hemoglobin at noon. Nothing by mouth for possible urology procedures. Patient states that he would like his Loreta to be his decision maker indicates that he can't make decisions for himself. Patient also reports that he would like to be DO NOT RESUSCITATE but is agreeable to intubation if need be.
--- NOTE | 2019-02-06 14:33 | CDI ---
Documentation Clarification Form Date: 02/06/2019 From: Esme Umaña Admit Date: 02/05/2019 4:34:00 PM Patient Name: Griffin Summers Visit Number: [id number] Discharge Date: ATTENTION: The Clinical Documentation Specialists (CDI) and [facility] Coding Staff appreciate your assistance in clarifying documentation. Please respond to the clarification below the line at the bottom and electronically sign. The CDI & [facility] Coding staff will review the response and follow-up if needed. Please note: Queries are made part of the Legal Health Record. If you have any questions, please contact the author of this message via ITS. Dr. Shirley Haque Urosepsis is documented in the H & P History/Risk Factors: 83 year old male presents to the ED via EMS from Rehab for blood in his urine and lower abdominal pain. Medical hx Porstate CA with mets to liver, Clinical Indicators: WBC 9.3 Lactic acid: 2.1 Vitals signs on admission: 98/64 114 98.9 20 99%ra Other Clinical Indicators: Treatment: ID Consult: Repeat urine culture is in progress Antibiotics: Meropenem ivpb; IV Bolus: 3L 0.9ns ivfl; In your professional opinion, please clarify if these findings signify one of the following conditions, whether the condition is POA, and cause, if known: Sepsis due to UTI POA Sepsis due to POA Other, please specify Unable to determine Identify the (suspected) organism Link or clarify if there is associated (due to/with): Organ failure Shock SIRS Criteria (2 or more of the following may indicate SIRS): -Temperature < 96.8F (36C) or > 101.0F (38.3C) -Heart Rate > 90 bpm -Respiratory Rate > 20 breaths/min or PaCO2 < 32 mmHg -White Blood Cell Count > 12,000 or < 4,000 cells/mm3 or > 10% bands -Lactate >2.0 mmol/L (>4.0 is equivalent to septic shock) SEPSIS DUE TO UTI PRESENT ON ADMISSION MTDD
--- NOTE | 2019-02-06 14:42 | CDI ---
Documentation Clarification Form Date: 02/06/2019 From: Esme Umaña Admit Date: 02/05/2019 4:34:00 PM Patient Name: Griffin Summers Visit Number: [id number] Discharge Date: ATTENTION: The Clinical Documentation Specialists (CDI) and [facility] Coding Staff appreciate your assistance in clarifying documentation. Please respond to the clarification below the line at the bottom and electronically sign. The CDI & [facility] Coding staff will review the response and follow-up if needed. Please note: Queries are made part of the Legal Health Record. If you have any questions, please contact the author of this message via ITS. Dr. Shirley Haque A diagnosis of anemia lacks specificity to accurately reflect your patients severity of condition and clarification is needed. History/Risk Factors: 83 year old male presents to the ED with blood in Barakat catheter. Clinical indicators: Medical history of Prostate CA, Clogged barakat catheter 01/27/2019 H &P Anemia: likely secondary to urinary source. Hemoglobin trending down from 10.5 8.7 over one day. Hemoglobin: 10.5 02/05/2019 8.7 Hematocrit: 02/05/2019 27.7 Treatment: 1 units of PRBCs transfused, Daily CBC In order to capture the severity of condition, please clarify the type of anemia and etiology if known: * Acute blood loss anemia * Unable to determine * Other, please specify (Last Revision: August 2017) Acute blood loss anemia MTDD
[2019-02-06] MEDS ORDERED: SODIUM CHLORIDE 0.9% IRRIGATIO 3,000 ML IRRIGATION ONE (15:22)
[2019-02-06] MEDS ORDERED: SODIUM CHLORIDE 0.9% IRRIG 3,000 ML BAG IRRIGATION SCH (16:00)
--- NOTE | 2019-02-06 16:22 | P.GSCN ---
History of Present Illness Consult date: 02/06/19 Reason for Consult: Gross hematuria Requesting physician: Valencia Avila History of present illness: The patient is an 83-year-old male with a history of atrial flutter and hypothyroidism. He was found in late 2018 to have a hepatic mass, as well as an enlarged pelvic lymph node. He has known significant prostatic enlargement, for which he previously saw Dr. Freitas. He underwent CT-guided biopsies, revealing hepatocellular carcinoma as well as metastatic prostate cancer. He initially presented with a deep venous thrombosis and pulmonary emboli, for which he now takes our request. He underwent spinal surgery for L4-S1 abscess/osteomyelitis/discitis approximately 6 weeks ago and was recently in subacute rehab at [facility]. He has had an indwelling Sherwood catheter since the time of the spinal surgery, which has been changed several times. The catheter was actually placed prior to the spinal surgery, and he failed a voiding trial. He has not been given a voiding trial since the spinal surgery. He was admitted on 01/27/2019 for an occluded Sherwood catheter. His catheter was unplugged and he was sent back to [facility]. Nursing staff at [facility] had noticed further clotting with increased hematuria prompting them to transfer the patient to the ED. he was uncomfortable overnight due to the Sherwood catheter being plugged. The catheter was changed earlier today by the nursing staff, and subsequently irr igated. He is now more comfortable. He has received two 7.5 mg Lupron injections for treatment of his prostate cancer. 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 No tobacco use. No experience. No extensive travel. Smoking Status: Never smoker Past Alcohol Use History: Rare Past Drug Use History: None Reported - Past Family History Mother Family Medical History: Cancer Additional Family Medical History / Comment(s): COLON Medications and Allergies Home Medications Medication Instructions Recorded Confirmed Type Levothyroxine Sodium [Synthroid] 100 mcg PO DAILY@0600 01/09/18 02/05/19 History Pantoprazole Sodium [Protonix] 40 mg PO DAILY@0600 01/09/18 02/05/19 History Tamsulosin HCl [Flomax] 0.4 mg PO DAILY 01/09/18 02/05/19 History Cholecalciferol [Vitamin D3] 1,000 unit PO DAILY 12/02/18 02/05/19 History Apixaban [Eliquis] 5 mg PO BID 01/26/19 02/05/19 History Diltiazem Cd [Cardizem CD] 120 mg PO DAILY 01/26/19 02/05/19 History Ferrous Sulfate [Iron (65 MG 325 mg PO DAILY 01/26/19 02/05/19 History Elemental)] Lactose-Reduced Food [Ensure Plus] 1 can PO BID@0900,1700 01/26/19 02/05/19 History Metoprolol Tartrate [Lopressor] 25 mg PO BID 01/26/19 02/05/19 History QUEtiapine [SEROquel] 25 mg PO HS 01/26/19 02/05/19 History Allergies Allergy/AdvReac Type Severity Reaction Status Date / Time No Known Allergies Allergy Verified 02/05/19 14:59 Surgical - Exam Vital Signs Temp Pulse Resp BP Pulse Ox 98.9 F 114 H 20 98/64 99 02/05/19 15:00 02/05/19 15:00 02/05/19 15:00 02/05/19 15:00 02/05/19 15:00 - General well developed, well nourished, no distress - Respiratory normal respiratory effort - Abdomen Abdomen: soft, non tender, no guarding, no rigid, no rebound - Genitourinary normal penis with no external lesions, testicles non-tender - Rectum Rectum: normal sphincter tone, no masses, other (Prostate enlarged and a nodul ar, with right-sided firmness noted.) - Psychiatric oriented to time, oriented to person, oriented to place, speech is normal, memory intact Results - Labs 02/06/19 11:49 02/06/19 06:53 Abnormal Lab Results - Last 24 Hours (Table) 02/05/19 02/06/19 02/06/19 Range/Units 18:32 00:25 00:26 RBC 2.55 L (4.30-5.90) m/uL Hgb 7.0 L D (13.0-17.5) gm/dL Hct 22.2 L (39.0-53.0) % MCHC (31.0-37.0) g/dL RDW 17.0 H (11.5-15.5) % Chloride (98-107) mmol/L Creatinine (0.66-1.25) mg/dL Glucose (74-99) mg/dL Plasma Lactic Acid Zane 2.1 H* (0.7-2.0) mmol/L Crossmatch See Detail 02/06/19 02/06/19 02/06/19 Range/Units 06:53 06:53 11:49 RBC 2.92 L 2.87 L (4.30-5.90) m/uL Hgb 8.0 L 7.8 L (13.0-17.5) gm/dL Hct 25.7 L 25.1 L (39.0-53.0) % MCHC 30.9 L (31.0-37.0) g/dL RDW 16.5 H 16.6 H (11.5-15.5) % Chloride 110 H (98-107) mmol/L Creatinine 0.64 L (0.66-1.25) mg/dL Glucose 100 H (74-99) mg/dL Plasma Lactic Acid Zane (0.7-2.0) mmol/L Crossmatch Diabetes panel 02/06/19 Range/Units 06:53 Sodium 140 (137-145) mmol/L Potassium 4.2 (3.5-5.1) mmol/L Chloride 110 H (98-107) mmol/L Carbon Dioxide 26 (22-30) mmol/L BUN 19 (9-20) mg/dL Creatinine 0.64 L (0.66-1.25) mg/dL Glucose 100 H (74-99) mg/dL Calcium 9.8 (8.4-10.2) mg/dL Calcium panel 02/06/19 Range/Units 06:53 Calcium 9.8 (8.4-10.2) mg/dL Pituitary panel 02/06/19 Range/Units 06:53 Sodium 140 (137-145) mmol/L Potassium 4.2 (3.5-5.1) mmol/L Chloride 110 H (98-107) mmol/L Carbon Dioxide 26 (22-30) mmol/L BUN 19 (9-20) mg/dL Creatinine 0.64 L (0.66-1.25) mg/dL Glucose 100 H (74-99) mg/dL Calcium 9.8 (8.4-10.2) mg/dL Adrenal panel 02/06/19 Range/Units 06:53 Sodium 140 (137-145) mmol/L Potassium 4.2 (3.5-5.1) mmol/L Chloride 110 H (98-107) mmol/L Carbon Dioxide 26 (22-30) mmol/L BUN 19 (9-20) mg/dL Creatinine 0.64 L (0.66-1.25) mg/dL Glucose 100 H (74-99) mg/dL Calcium 9.8 (8.4-10.2) mg/dL Assessment and Plan (1) Prostate cancer Current Visit: No Status: Acute Priority: High Code(s): C61 - MALIGNANT NEOPLASM OF PROSTATE SNOMED Code(s): 542218922 (2) Gross hematuria Current Visit: Yes Status: Acute Code(s): R31.0 - GROSS HEMATURIA SNOMED Code(s): 994990463 Plan: Upon my initial evaluation, the Sherwood catheter was noted to be occluded. I passed a 20-Salvadorean Sherwood catheter into the bladder under sterile conditions, and manually irrigated several hundred clots from the bladder. The 20-Salvadorean Sherwood catheter was then exchanged for a 22-Salvadorean three-way Sherwood catheter, and continuous bladder irrigation was initiated using 0.9 normal saline. The return was pink tinged. A cause of the hematuria has not been determined. I suspect it is related to his known prostate cancer. I will likely proceed with cystoscopy tomorrow, and hopefully we will be able to fulgurate bleeders and improve the hematuria. If the hematuria persists, he may require a Jimbo filter to allow the anticoagulants to be discontinued. I am hopeful that he will be able to void soon and allow the Sherwood catheter to be removed. It would also be my recommendation that he receive an antiandrogen such as bicalutamide in addition to the Lupron.
[2019-02-06] MEDS: MEROPENEM 1 GM in SODIUM CHLORIDE 0.9% 100 ML IVPB SCH (17:40)
[2019-02-06 18:44] LABS: Anisocytosis Slight; HCT 23.7 % (39.0-53.0); HGB 7.3 gm/dL (13.0-17.5); Hypochromasia Slight; MCH 27.1 pg (25.0-35.0); MCHC 30.6 g/dL (31.0-37.0); MCV 88.4 fL (80.0-100.0); Mean Platelet Volume 6.9; Platelet Count 302 k/uL (150-450); RBC 2.68 m/uL (4.30-5.90); RDW 16.5 % (11.5-15.5); WBC 6.2 k/uL (3.8-10.6)
[2019-02-06 18:51] LABS: Calcium 9.6 mg/dL (8.4-10.2); Total Bilirubin 0.8 mg/dL (0.2-1.3)
[2019-02-06 18:54] LABS: Partial Thromboplastin Time 25.3 sec (22.0-30.0); Prothrombin Time 11.1 sec (9.0-12.0)
[2019-02-06] MEDS ORDERED: MIDAZOLAM 2 MG/2 ML VIAL ONE (18:57)
[2019-02-06] MEDS ORDERED: GLYCOPYRROLATE 0.2 MG/ML 2 ML VIAL ONE (18:57)
[2019-02-06] MEDS ORDERED: ROCURONIUM BROMIDE 10 MG/ML 10 ML VIAL IV ONE (18:57)
[2019-02-06] MEDS ORDERED: LIDOCAINE 1% INJ 10MG/ML (20 ML MDV) ONE (18:57)
[2019-02-06] MEDS ORDERED: fentaNYL (PF) 50 MCG/ML 2 ML AMP ONE (18:57)
[2019-02-06] MEDS ORDERED: ETOMIDATE 2 MG/ML 10 ML VIAL ONE (18:57)
[2019-02-06] MEDS ORDERED: NEOSTIGMINE 1 MG/ML 10 ML VIAL ONE (18:57)
[2019-02-06] MEDS ORDERED: PHENYLEPHRINE-0.9% NACL SYG 1 MG/10 ML SYRINGE ONE (18:57)
--- NOTE | 2019-02-06 20:07 | P.OP ---
Date of Procedure: 02/06/19 Preoperative Diagnosis: Urinary clot retention Postoperative Diagnosis: Same Procedure(s) Performed: Cystoscopy, evacuation of clot, fulguration of bleeder Anesthesia: LIDIA Surgeon: Dorian Castro Estimated Blood Loss (ml): 10 IV fluids (ml): 400 Pathology: none sent Condition: stable Disposition: PACU Indications for Procedure: The patient is an 83-year-old white male with a long history of incomplete bladder emptying secondary to BPH. He was recently diagnosed with metastatic prostate cancer, for which he is being treated with Lupron. He has had an indwelling Sherwood catheter for over 6 weeks for urinary retention. He has recently developed gross hematuria with clots, including his Sherwood catheter. Operative Findings: Several hundred cc of clot were removed from the bladder. The proximal half of the prostatic fossa was open, while the distal half was visually occluded. A small bleeder was seen within the proximal prostatic urethra posteriorly. Description of Procedure: The patient was taken to the operating room and placed in the dorsolithotomy position, with his legs supported in Frankie stirrups. The external genitalia was prepped and draped sterilely. The 30 lens was used to introduce the 22-Montserratian cystoscopic sheath through the urethra and into the bladder under direct vision. The anterior urethra appeared normal. The distal half of the prostatic urethra was visually occluded, with a bilobar configuration. The proximal half of the prostatic fossa was wide open. The bladder was full of clot. The bladder was palpated and noted to be markedly distended. The Complexaik evacuator was used to remove several hundred mL of clot from the bladder. The bladder was then inspected. There was no active bleeding. No tumors or foreign bodies were seen. The ureteral orifices appeared normal. Despite several minutes of observation, no efflux of blood or urine was seen from either ureteral orifice. The prostatic fossa was then examined. Just distal to the vesical neck at 6:00, an area of oozing was noted. This was fulgurated with the Bovie electrocautery, attaining complete hemostasis. The patient was reexamined. The abdomen was noted to be soft and non-distended. A 22-Montserratian, three-way Sherwood catheter was placed. The return was clear. The irrigation port was plugged. The catheter was irrigated and drained well. The catheter was connected to gravity drainage. The patient tolerated the procedure well was taken to the recovery room in stable condition.
[2019-02-06] MEDS ORDERED: MEPERIDINE 50 MG/ML SYRINGE IVP ONE (20:10)
--- NOTE | 2019-02-06 22:56 | P.CONS ---
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 No tobacco use. No experience. No extensive travel. Smoking Status: Never smoker Past Alcohol Use History: Rare Past Drug Use History: None Reported - Past Family History Mother Family Medical History: Cancer Additional Family Medical History / Comment(s): COLON Medications and Allergies Home Medications Medication Instructions Recorded Confirmed Type Levothyroxine Sodium [Synthroid] 100 mcg PO DAILY@0600 01/09/18 02/05/19 History Pantoprazole Sodium [Protonix] 40 mg PO DAILY@0600 01/09/18 02/05/19 History Tamsulosin HCl [Flomax] 0.4 mg PO DAILY 01/09/18 02/05/19 History Cholecalciferol [Vitamin D3] 1,000 unit PO DAILY 12/02/18 02/05/19 History Apixaban [Eliquis] 5 mg PO BID 01/26/19 02/05/19 History Diltiazem Cd [Cardizem CD] 120 mg PO DAILY 01/26/19 02/05/19 History Ferrous Sulfate [Iron (65 MG 325 mg PO DAILY 01/26/19 02/05/19 History Elemental)] Lactose-Reduced Food [Ensure Plus] 1 can PO BID@0900,1700 01/26/19 02/05/19 History Metoprolol Tartrate [Lopressor] 25 mg PO BID 01/26/19 02/05/19 History QUEtiapine [SEROquel] 25 mg PO HS 01/26/19 02/05/19 History fentaNYL 25MCG/HR PATCH [Duragesic 25 mcg TRANSDERM Q72H 02/06/19 02/06/19 History 25MCG/HR] Allergies Allergy/AdvReac Type Severity Reaction Status Date / Time No Known Allergies Allergy Verified 02/05/19 14:59 Physical Exam Vitals: Vital Signs Temp Pulse Pulse Resp BP BP Pulse Ox 02/06/19 07:11 98.4 F 102 H 14 176/93 96 02/06/19 05:25 98.4 F 86 16 139/70 98 02/06/19 04:10 98.3 F 83 15 144/73 97 02/06/19 03:40 98.4 F 85 15 123/77 94 L 02/06/19 03:30 98.3 F 88 16 120/65 02/06/19 03:19 98.1 F 91 16 109/73 100 02/06/19 00:21 16 02/06/19 00:04 99.6 F 86 16 118/73 97 02/05/19 21:47 16 02/05/19 18:33 97.9 F 103 H 16 147/80 99 02/05/19 17:30 97 18 138/70 100 02/05/19 17:00 96 18 102/70 100 02/05/19 16:30 96 18 98/74 98 02/05/19 16:00 105 H 16 98/64 98 02/05/19 15:30 104 H 16 98/64 99 02/05/19 15:00 98.9 F 114 H 20 98/64 99 Intake and Output 02/05/19 02/06/19 02/06/19 22:59 06:59 14:59 Intake Total 2290 1345 420 Output Total 690 2200 Balance 2290 655 -1780 Intake: Intake, IV Titration 1750 525 Amount Cefepime 1 gm In Sodium 100 Chloride 0.9% 50 ml @ 100 mls/hr IVPB Q12HR [facility] Rx #:[id number] Sodium Chloride 0.9% 1, 150 525 000 ml @ 75 mls/hr IV . [id number] [facility] Rx#:[id number] Sodium Chloride 0.9% 500 1500 ml 500 ml @ 1000 mls/hr IV Q35M [facility] Rx#:[id number] Oral 540 200 420 Blood Product 620 Rc As-1 Unit 310 [id number] Output: Urine 690 2200 Uretheral (Barakat) 700 Other: Voiding Method Indwelling Catheter Indwelling Catheter # Voids 1 1 # Bowel Movements 2 1 Weight 81.647 kg Gen: Alert and Oriented, No acute Distress Head NC/NT Neck Supple Lungs: CTA Bilateral nO increased Effort Heart RRR, S1s2 Abdomen: Soft ND Ext No edema barakat with positive blood tinged urine Results CBC & Chem 7: 02/06/19 18:26 02/06/19 06:53 Labs: Abnormal Lab Results - Last 24 Hours (Table) 02/05/19 02/05/19 02/06/19 Range/Units 15:39 18:32 00:25 RBC 3.16 L 2.55 L (4.30-5.90) m/uL Hgb 8.7 L 7.0 L D (13.0-17.5) gm/dL Hct 27.7 L 22.2 L (39.0-53.0) % MCHC (31.0-37.0) g/dL RDW 17.0 H 17.0 H (11.5-15.5) % Chloride (98-107) mmol/L Creatinine (0.66-1.25) mg/dL Glucose (74-99) mg/dL Plasma Lactic Acid Zane 2.1 H* (0.7-2.0) mmol/L Crossmatch 02/06/19 02/06/19 02/06/19 Range/Units 00:26 06:53 06:53 RBC 2.92 L (4.30-5.90) m/uL Hgb 8.0 L (13.0-17.5) gm/dL Hct 25.7 L (39.0-53.0) % MCHC (31.0-37.0) g/dL RDW 16.5 H (11.5-15.5) % Chloride 110 H (98-107) mmol/L Creatinine 0.64 L (0.66-1.25) mg/dL Glucose 100 H (74-99) mg/dL Plasma Lactic Acid Zane (0.7-2.0) mmol/L Crossmatch See Detail 02/06/19 Range/Units 11:49 RBC 2.87 L (4.30-5.90) m/uL Hgb 7.8 L (13.0-17.5) gm/dL Hct 25.1 L (39.0-53.0) % MCHC 30.9 L (31.0-37.0) g/dL RDW 16.6 H (11.5-15.5) % Chloride (98-107) mmol/L Creatinine (0.66-1.25) mg/dL Glucose (74-99) mg/dL Plasma Lactic Acid Zane (0.7-2.0) mmol/L Crossmatch Assessment and Plan Plan: Assessment and Recommendations: 1. Normocytic Anemia: - Secondary to blood loss anemia from hematuria - Urology Following 2. Hepatocellular Carcinoma - Recent diagnosis 3. Prostate Cancer with lymoh node involvement: - Check PSA - Status posr second monthly Alyssa
--- NOTE | 2019-02-06 23:02 | P.CON ---
Consult Note - . Consult date: 02/06/19 Assessment/Plan:: This is an 83-year-old male is known to the infectious disease service because of his many bouts of urinary tract infection. The patient has a long- standing history of a very large prostate with difficulties with some urinary retention resulting urinary tract infection. Recent infections have been with E. coli with no oral options and is receiving a couple of courses of outpatient intravenous antibiotic therapy and has done well. In September he was hospitalized with some back pain evaluations were performed showing evidence of degenerative disease and with local care and treatment of urinary infection he improved. 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 Percutaneous biopsy at this facility was performed and was nondiagnostic. He was seen at [facility] also with nondiagnostic testing. He eventually was seen at [facility] where biopsy was successful of the liver which reveal evidence of adenocarcinoma, and there is also evidence of enlarged lymph nodes in the pelvis which were diagnostic of prostate carcinoma. 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 He was seen by orthopedic spine underwent the surgical debridement. The somewhat drug- resistant E. coli was isolated from the surgical specimens from the debridement of the spine and he completed 8 weeks of intravenous antibiotic therapy for this extensive infection. Patient was recently hospitalized January 26 are January 30 which time he was treated for lumbar discitis and discharge to [facility] on meropenem to complete 14 days. Patient was sent in to [facility] emergency center the early hours of February 05 as he was having significant blood clots in his Sherwood catheter and not able to pass urine. They tried to irrigate at the shelter without success apparently was removed and could not successfully perform straight cath. Patient has had ongoing bladder s pasms and pressure in the lower abdomen. Sherwood catheter was replaced in the ER with no urine return and ultrasound revealed catheter was lodged in collection of blood clots. This was flushed and was then draining pink urine. Unfortunately a patient that had a fall in the ER and he underwent a CAT scan of the head and cervical spine this found no acute bleeding or dislocation and patient was transferred back to [facility]. Patient states he arrived back to [facility] in because he was still having bleeding and blood clots in the Sherwood catheter, staff sent him back to the ER and patient was subsequently admitted to the [facility] floor and started on cefepime. He has been afebrile, heart rate 114, lactic acid initially 2.1 and repeat 1.5. Patient was ordered for transfusion of 2 units of RBCs for hemoglobin of 7 and repeat this morning is at 8 prior to transfusion. The patient continues to have blood clots draining from the Sherwood but no output this morning and call in place with urology. He is scheduled for renal ultrasound. PICC line has been functioning without difficulty in the left upper arm. Please see the consult note is dictated by nurse practitioner Mrs. Saima Daley. It is noted the patient is having great difficulties with the hematuria and urinary retention from clotting within the bladder. Evaluations by urology are in process and surgery planning initiated as needed. As noted at this time the as E. coli will be treated with carbapenem to the completion of therapy. February 13 was the original potential completion date each may be altered based on the findings related to this current stay. Fortunately he is modestly comfortable. He has to hold transfusion. The patient may need to have a [place] filter placed continues to have ongoing bleeding from the urogenital track complicated by his anticoagulation therapy. I agree with evaluation, assessment and plan is dictated by nurse practitioner Mrs. Saima Daley.
[2019-02-06 23:11] VITALS: PULSE 91
[2019-02-07] MEDS: MEROPENEM 1 GM in SODIUM CHLORIDE 0.9% 100 ML IVPB SCH ×2 (00:04→08:13)
[2019-02-07 03:19] LABS: Iron Saturation 21.66 (15.00-50.00)
[2019-02-07] MEDS: LEVOTHYROXINE 100 MCG TAB PO SCH (05:53)
[2019-02-07] MEDS: PANTOPRAZOLE 40 MG TABLET PO SCH (05:53)
[2019-02-07 07:52] VITALS: BP 154/86; RESP 17; TEMP 99.2
[2019-02-07 08:01] LABS: Anisocytosis Slight; Basophils % (A) 1 %; Eosinophils # (A) 0.3 k/uL (0-0.7); Eosinophils % (A) 4 %; HCT 25.6 % (39.0-53.0); HGB 7.9 gm/dL (13.0-17.5); Hypochromasia Slight; Lymphocytes # (A) 1.4 k/uL (1.0-4.8); Lymphocytes % (A) 24 %; MCH 27.2 pg (25.0-35.0); MCHC 30.8 g/dL (31.0-37.0); MCV 88.3 fL (80.0-100.0); Mean Platelet Volume 6.9; Monocytes # (A) 0.4 k/uL (0-1.0); Monocytes % (A) 7 %; Neutrophils # (A) 3.6 k/uL (1.3-7.7); Neutrophils % (A) 62 %; Platelet Count 282 k/uL (150-450); RBC 2.89 m/uL (4.30-5.90); RDW 16.1 % (11.5-15.5); WBC 5.8 k/uL (3.8-10.6)
[2019-02-07] MEDS: DILTIAZEM CD 120 MG CAP.ER.24H PO SCH (08:14)
[2019-02-07] MEDS: METOPROLOL TARTRATE 25 MG TAB PO SCH (08:14)
[2019-02-07] MEDS: TAMSULOSIN 0.4 MG CAP.ER.24H PO SCH (08:14)
[2019-02-07] MEDS: FERROUS SULFATE 325 MG TAB PO SCH (08:14)
[2019-02-07] MEDS: SODIUM CHLORIDE 0.9% 1,000 ML IV SCH (08:15)
--- NOTE | 2019-02-07 11:39 | CDI ---
Documentation Clarification Form Date: 02/07/2019 From: Esme Umaña RN CCDS Admit Date: 02/05/2019 4:34:00 PM Patient Name: Griffin Summers Visit Number: [id number] Discharge Date: ATTENTION: The Clinical Documentation Specialists (CDI) and [facility] Coding Staff appreciate your assistance in clarifying documentation. Please respond to the clarification below the line at the bottom and electronically sign. The CDI & [facility] Coding staff will review the response and follow-up if needed. Please note: Queries are made part of the Legal Health Record. If you have any questions, please contact the author of this message via ITS. Dr. Shirley Haque The documentation in the medical record included Lactic Acid: Past medical history/Risk Factors: 83 year old male presents to the ED for blood in his Sherwood Catheter. Medical history Prostate CA, Liver Metastasis. Clinical Indicators: Patient is diagnosed with Sepsis due to UTI Lactic Acid 2.1 on repeat 1.5 Vital signs: 98/64 114 98.9 20 99% ra Treatment: 1L 0.9ns ivfl then 75cc/hr In your professional opinion, can you please clarify if the above clinical indicators and treatment signify any of the following? * Lactic Acidosis * Unable to determine * Other, please specify (Last Revision: August 2017) lactic acidosis MTDD
--- NOTE | 2019-02-07 12:38 | P.DS ---
Providers Date of admission: 02/05/19 16:34 Expected date of discharge: 02/07/19 Attending physician: Benson Nuñez MD Consults: 02/05/19 16:51 Consult Physician Routine Consulting Provider: Chava Thorne Consult Reason/Comments: urinary retention, hematuria (history prostate cancer) Do you want consulting provider notified?: Yes, Notify in am 02/05/19 18:21 Consult Physician Routine Consulting Provider: Griffin Acosta Consult Reason/Comments: Urosepsis, h/o epidural abscess completed Meropenem Do you want consulting provider notified?: Yes 02/06/19 11:34 Consult Physician Routine Consulting Provider: Ash Singletary Consult Reason/Comments: prostate cancer Do you want consulting provider notified?: Yes Primary care physician: Leonard Bowser MD Hospital Course: 83-year-old male with PMH of atrial flutter, hypothyroidism, prostate cancer, pulmonary embolus, recent spinal surgery for abscess/osteomyelitis/discitis currently in subacute rehab at [facility]. Patient reports that he has had this catheter in place now for the past 3-4 months. Patient reports being admitted on 01/27/2019 for a clogged Sherwood catheter. His catheter was declogged and he was sent back [facility]. Nursing staff at [facility] had noticed further clotting an increase hematuria prompting them to send the patient back to the ED. Patient has no complaints at this time. He denies any headaches, lower extremity edema, nausea, vomiting, fever, cough, chills, chest pain, dizziness, shortness of breath, palpitations, changes in bowel habits. He reports that his appetite is good. Patient does report lower extremity weakness, left greater than the right as a result of surgery. Patient does report that he is progressively improved since discharge from [facility] after his spine surgery. In the ED, patient was found to have a hemoglobin of 8.7. This is drastically change from a hemoglobin of 10 one day ago. Patient is admitted for hematuria, urinary tract infection, urology on consult. Patient initially met sepsis criteria as he was tachycardic to have 105, hypotensive with a SBP in the 90s and a positive source of infection. He was started on normal saline at 75 mL/h. Was given Tylenol as needed for fever. Lactic acid was 2.1 on admission, 1.5 on repeat. Patient was initially started on ceftriaxone for UTI. His ceftriaxone was discontinued and he was started on cefepime IV due to history of resistant E. coli. Cefepime was discontinued by infectious disease and patient was resumed on meropenem for treatment of epidural abscess concurrently with UTI. Was advis ed that he would need meropenem until 02/13/2019, where he would need to follow- up with Dr. Acosta. Blood cultures are preliminarily negative at the time of discharge. Urine culture was negative. Patient was noted to be anemic throughout his hospitalization. His hemoglobin went from 10.5-8.7-7.0. He was transfused 1 unit of PRBC and maintained his hemoglobin into discharge. Source of anemia was thought to be secondary to hematuria. Urology was consulted and patient underwent cystoscopy on 02/06/2019. Source of bleeding was found and hemostasis was achieved using electrocautery. Patient was seen and examined. No acute events overnight. Patient reports no more episodes of hematuria since his procedure yesterday. He denies any chest pain, shortness of breath or palpitations. Looking for to going back to [facility]. General: [non toxic], [no distress], [appears at stated age] Derm: [warm], [dry] Head: [atraumatic], [normocephalic], [symmetric] Eyes: [EOMI], [no lid lag], [anicteric sclera] Mouth: [no lip lesion], [mucus membranes moist] Cardiovascular: [S1S2 reg], [tachycardic], [positive DP pulse bilateral] Lungs: [CTA bilateral], [no rhonchi, no rales] , [no accessory muscle use] Abdominal: [soft], [ nontender to palpation], [no guarding], [gross hematuria in Sherwood] Ext: [no gross muscle atrophy], [no edema], [no contractures] Neuro: [left lower extremity 3 out of 5, right lower extremity 4-5 strength] Psych: [Alert], [oriented], [appropriate affect] Assessment and Plan Urosepsis: Tachycardic as high as 105, hypotensive with a SBP in the 90s, source of infection. Initially started on ceftriaxone which was discontinued for cefepime due to history of resistance, changed by infectious disease to meropenem. Continue Flomax. Continue normal saline at 75 mL per hour. Tylenol as needed for fever. Lactic acid 2.1-1.5 on repeat. Urine culture negative. Follow-up ID consult. Follow-up urology consult. Anemia: Likely secondary to urinary source, acute blood loss. Hemoglobin trending down from 10.5-8.7-7.0. Transfuse 1 unit PRBC, repeat hemoglobin maintaining stable. Underwent cystoscopy, hemostasis achieved via electrocautery. Daily CBC. Transfuse if hemoglobin less than 7. Atrial fibrillation: Resume anticoagulation. Telemetry monitoring. Keep potassium greater than 4 magnesium greater than 2. Rate control with diltiazem and metoprolol. Hypothyroidism: Continue Synthroid 100 g by mouth daily. Prostate cancer: Follows oncology at [facility]. Received dose of Lupron on 01/29/2019. 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 Follow oncology consult. 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 Acosta in the outpatient setting, continue meropenem until February 13. Follow PT and OT recommendations. Plans to go back to subacute rehab in [facility]. Plans for DC back to [facility] today. Will need to complete meropenem IV until the . Voiding trials at [facility]. Follow PCP and urology within 1 week of discharge. Pertinent Studies: Bladder and renal ultrasound Procedures: Cystoscopy Patient Condition at Discharge: Stable Plan - Discharge Summary Discharge Rx Participant: No New Discharge Prescriptions: New Meropenem [Merrem] 1 gm IVPB Q8HR 6 Days vial Continue Levothyroxine Sodium [Synthroid] 100 mcg PO DAILY@0600 Tamsulosin HCl [Flomax] 0.4 mg PO DAILY Pantoprazole Sodium [Protonix] 40 mg PO DAILY@0600 Cholecalciferol [Vitamin D3] 1,000 unit PO DAILY Metoprolol Tartrate [Lopressor] 25 mg PO BID Lactose-Reduced Food [Ensure Plus] 1 can PO BID@0900,1700 Apixaban [Eliquis] 5 mg PO BID QUEtiapine [SEROquel] 25 mg PO HS Ferrous Sulfate [Iron (65 MG Elemental)] 325 mg PO DAILY Diltiazem Cd [Cardizem CD] 120 mg PO DAILY fentaNYL 25MCG/HR PATCH [Duragesic 25MCG/HR] 25 mcg TRANSDERM Q72H Discharge Medication List Levothyroxine Sodium [Synthroid] 100 mcg PO DAILY@0600 01/09/18 [History] Pantoprazole Sodium [Protonix] 40 mg PO DAILY@0600 01/09/18 [History] Tamsulosin HCl [Flomax] 0.4 mg PO DAILY 01/09/18 [History] Cholecalciferol [Vitamin D3] 1,000 unit PO DAILY 12/02/18 [History] Apixaban [Eliquis] 5 mg PO BID 01/26/19 [History] Diltiazem Cd [Cardizem CD] 120 mg PO DAILY 01/26/19 [History] Ferrous Sulfate [Iron (65 MG Elemental)] 325 mg PO DAILY 01/26/19 [History] Lactose-Reduced Food [Ensure Plus] 1 can PO BID@0900,1700 01/26/19 [History] Metoprolol Tartrate [Lopressor] 25 mg PO BID 01/26/19 [History] QUEtiapine [SEROquel] 25 mg PO HS 01/26/19 [History] fentaNYL 25MCG/HR PATCH [Duragesic 25MCG/HR] 25 mcg TRANSDERM Q72H 02/06/19 [History] Meropenem [Merrem] 1 gm IVPB Q8HR 6 Days vial 02/07/19 [Rx] Follow up Appointment(s)/Referral(s): Leonard Bowser MD [Primary Care Provider] - 1-2 days [facility], [NON-STAFF] - As Needed Dorian Castro MD [STAFF PHYSICIAN] - 1 Week Activity/Diet/Wound Care/Special Instructions: Diet: Low-salt Follow-up with PCP within 1-2 days of discharge. Follow-up with urology within 1 week of discharge. Take all medications as advised. You may resume Eliquis for treatment of atrial fibrillation and DVT. Please obtain CBC within 1 day of discharge. The results are to be followed up with your PCP. Hemoglobin on discharge was 7.9. Discharge Disposition: HOME SELF-CARE
--- NOTE | 2019-02-07 14:14 | P.PN ---
Progress Note - Text Progress Note Date: 02/07/19 Mr. Summers is comfortable. His Sherwood catheter is draining clear yellow urine. His hemoglobin level is stable at 7.9. He is urologically stable for discharge. The Sherwood catheter is to be removed in the evening of 02/11/2019. He will follow up with me the following morning to assess bladder emptying. I am hopeful that the Lupron and tamsulosin will result in enough prostate shrinkage to allow spontaneous voiding to occur. If he is unable to void, I will likely suggest that he perform intermittent self-catheterization if he is able to, as he has done this in the past. Incidentally, the catheter in place has a 30 mL balloon, as the proximal prostatic fossa is open and a 10 mL balloon could easily be pulled into the prostatic urethra.
--- NOTE | 2019-02-07 22:06 | P.PN ---
Subjective Progress Note Date: 02/07/19 This is an 83-year-old male is known to the infectious disease service because of his many bouts of urinary tract infection. The patient has a long- standing history of a very large prostate with difficulties with some urinary retention resulting urinary tract infection. Recent infections have been with E. coli with no oral options and is receiving a couple of courses of outpatient intravenous antibiotic therapy and has done well. In September he was hospitalized with some back pain evaluations were performed showing evidence of degenerative disease and with local care and treatment of urinary infection he improved. 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 Percutaneous biopsy at this facility was performed and was nondiagnostic. He was seen at [facility] also with nondiagnostic testing. He eventually was seen at [facility] where biopsy was successful of the liver which reveal evidence of adenocarcinoma, and there is also evidence of enlarged lymph nodes in the pelvis which were diagnostic of prostate carcinoma. 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 He was seen by orthopedic spine underwent the surgical debridement. The somewhat drug- resistant E. coli was isolated from the surgical specimens from the debridement of the spine and he completed 8 weeks of intravenous antibiotic therapy for this extensive infection. Patient was recently hospitalized January 26 are January 30 which time he was treated for lumbar discitis and discharge to [facility] on meropenem to complete 14 days. Patient was sent in to [facility] emergency center the early hours of February 05 as he was having significant blood clots in his Sherwood catheter and not able to pass urine. They tried to irrigate at the senior care without success apparently was removed and could not successfully perform straight cath. Patient has had ongoing bladder spasms and pressure in the lower abdomen. Sherwood catheter was replaced in the ER with no urine return and ultrasound revealed catheter was lodged in collection of blood clots. This was flushed and was then draining pink urine. Unfortunately a patient that had a fall in the ER and he underwent a CAT scan of the head and cervical spine this found no acute bleeding or dislocation and patient was transferred back to [facility]. Patient states he arrived back to [facility] in because he was still having bleeding and blood clots in the Sherwood catheter, staff sent him back to the ER and patient was [facility] and started on cefepime. He has been afebrile, heart rate 114, lactic acid initially 2.1 and repeat 1.5. Patient was ordered for tr ansfusion of 2 units of RBCs for hemoglobin of 7 and repeat this morning is at 8 prior to transfusion. The patient continues to have blood clots draining from the Sherwood but no output this morning and call in place with urology. He is scheduled for renal ultrasound. PICC line has been functioning without difficulty in the left upper arm. 02/07/2019 Patient feeling considerably better today. With significant difficulty last evening when further bleeding occurred and bladder became obstructed by clots. Was taken to the operating room and cystoscopy was performed. Fulguration of the bleeding area has been performed. Patient now has clear urine in the Sherwood catheter and is feeling considerably better. Hemoglobin is stable at this time will likely to be transferred back to the extended care facility today. Patient's pain from his back infection is doing well. No other new acute complaints today. No fevers or chills. No difficulties with diarrhea. Objective - Vital Signs Vital signs: Vital Signs Temp 99.2 F 02/07/19 07:00 Pulse 91 02/07/19 07:00 Resp 17 02/07/19 07:00 BP 154/86 02/07/19 07:00 Pulse Ox 97 02/07/19 07:00 Intake & Output 02/07/19 02/07/19 02/08/19 06:59 18:59 06:59 Intake Total 1675 660 Output Total 1480 1300 Balance 195 -640 Intake: IV 300 Intake, IV Titration 775 Amount Meropenem 1 gm In Sodium 100 Chloride 0.9% 100 ml @ 200 mls/hr IVPB Q8HR DIPESH Rx#:[id number] Sodium Chloride 0.9% 1, 675 000 ml @ 75 mls/hr IV . [id number] DIPESH Rx#:[id number] Oral 600 660 Blood Product 0 Rc As-1 Unit 0 [id number] Output: Urine 1470 1300 3-way Urethral 950 Estimated Blood Loss 10 Other: Voiding Method Indwelling Catheter Indwelling Catheter - Exam This is an 83-year-old male. He is resting in bed and appears to be comfortable and in no acute distress. HEENT: Anicteric conjunctiva are pink and moist nasal mucosa grossly intact without significant lesions, there is no thrush. Neck: The neck is supple without significant lymphadenopathy or thyromegaly. Lungs: Good bilateral air entry without significant crackles or wheezing. There is no significant bronchial sounds. There is no egophony or dullness. Heart: Regular rate and rhythm . There is no significant murmur click or rub, PMI was nondisplaced. Abdomen: Positive bowel sounds soft and nontender without palpable masses or organomegaly. There was no guarding or rebound. Extremities: PICC line to the left upper arm without tenderness, erythema. Dorsalis pedis +2 bilaterally. No pedal edema. Neuro: Awake alert oriented to person place and time. There are no acute new gross focal sensory motor deficits. The grossly bloody urine has now cleared a pale yellow urine is noted in the Sherwood catheter bag. No superpubic tenderness patient much more comfortable. - Labs CBC & Chem 7: 02/07/19 07:42 02/06/19 06:53 Labs: Abnormal Lab Results - Last 24 Hours (Table) 02/06/19 02/07/19 Range/Units 06:53 07:42 RBC 2.89 L (4.30-5.90) m/uL Hgb 7.9 L (13.0-17.5) gm/dL Hct 25.6 L (39.0-53.0) % MCHC 30.8 L (31.0-37.0) g/dL RDW 16.1 H (11.5-15.5) % Iron 47 L (65-175) ug/dL TIBC 217 L (228-460) ug/dL Laboratory Results WBC 5.8 k/uL (3.8-10.6) 02/07/19 07:42 RBC 2.89 m/uL (4.30-5.90) L 02/07/19 07:42 Hgb 7.9 gm/dL (13.0-17.5) L 02/07/19 07:42 Hct 25.6 % (39.0-53.0) L 02/07/19 07:42 MCV 88.3 fL (80.0-100.0) 02/07/19 07:42 MCH 27.2 pg (25.0-35.0) 02/07/19 07:42 MCHC 30.8 g/dL (31.0-37.0) L 02/07/19 07:42 RDW 16.1 % (11.5-15.5) H 02/07/19 07:42 Plt Count 282 k/uL (150-450) 02/07/19 07:42 Neutrophils % 62 % 02/07/19 07:42 Lymphocytes % 24 % 02/07/19 07:42 Monocytes % 7 % 02/07/19 07:42 Eosinophils % 4 % 02/07/19 07:42 Basophils % 1 % 02/07/19 07:42 Neutrophils # 3.6 k/uL (1.3-7.7) 02/07/19 07:42 Lymphocytes # 1.4 k/uL (1.0-4.8) 02/07/19 07:42 Monocytes # 0.4 k/uL (0-1.0) 02/07/19 07:42 Eosinophils # 0.3 k/uL (0-0.7) 02/07/19 07:42 Basophils # 0.0 k/uL (0-0.2) 02/07/19 07:42 Hypochromasia Slight 02/07/19 07:42 Anisocytosis Slight 02/07/19 07:42 PT 11.1 sec (9.0-12.0) 02/06/19 18:26 INR 1.0 (<1.2) 02/06/19 18:26 APTT 25.3 sec (22.0-30.0) 02/06/19 18:26 Sodium 140 mmol/L (137-145) 02/06/19 06:53 Potassium 4.2 mmol/L (3.5-5.1) 02/06/19 06:53 Chloride 110 mmol/L (98-107) H 02/06/19 06:53 Carbon Dioxide 26 mmol/L (22-30) 02/06/19 06:53 Anion Gap 4 mmol/L 02/06/19 06:53 BUN 19 mg/dL (9-20) 02/06/19 06:53 Creatinine 0.64 mg/dL (0.66-1.25) L 02/06/19 06:53 Est GFR (CKD-EPI)AfAm >90 (>60 ml/min/1.73 sqM) 02/06/19 06:53 Est GFR (CKD-EPI)NonAf >90 (>60 ml/min/1.73 sqM) 02/06/19 06:53 Glucose 100 mg/dL (74-99) H 02/06/19 06:53 Lactic Ac Sepsis Rflx Y 02/05/19 19:10 Plasma Lactic Acid Zane 1.5 mmol/L (0.7-2.0) 02/05/19 22:30 Calcium 9.6 mg/dL (8.4-10.2) 02/06/19 18:26 Iron 47 ug/dL (65-175) L 02/06/19 06:53 TIBC 217 ug/dL (228-460) L 02/06/19 06:53 Iron Saturation 21.66 (15.00-50.00) 02/06/19 06:53 Ferritin 316.4 ng/mL (22.0-322.0) 02/06/19 06:53 Total Bilirubin 0.8 mg/dL (0.2-1.3) 02/06/19 18:26 AST 19 U/L (17-59) 02/06/19 18:26 ALT 19 U/L (21-72) L 02/06/19 18:26 Blood Type O Positive 02/06/19 00:26 Blood Type Recheck No 02/06/19 00:26 Antibody Screen NEGATIVE 02/06/19 00:26 Crossmatch See Detail 02/06/19 00:26 Spec Expiration Date 02/09/2019232502/06/19 00:26 Assessment and Plan (1) Blood hemoglobin level less than 10 grams/deciliter Status: Acute Code(s): R79.0 - ABNORMAL LEVEL OF BLOOD MINERAL SNOMED Code(s): 494545282 (2) Discitis of lumbar region Status: Acute Code(s): M46.46 - DISCITIS, UNSPECIFIED, LUMBAR REGION SNOMED Code(s): 643394607 (3) Gross hematuria Narrative/Plan: It is noted the patient is having great difficulties with the hematuria and urinary retention from clotting within the bladder. Evaluations by urology are in process and surgery planning initiated as needed. As noted at this time the as E. coli will be treated with carbapenem to the completion of therapy. February 13 was the original potential completion date each may be altered based on the findings related to this current stay. Fortunately he is modestly comfortable. He has to hold transfusion. The patient may need to have a [place] filter placed continues to have ongoing bleeding from the urogenital track complicated by his anticoagulation therapy. 02/07/2019 the patient has now had a cystoscopy performed and fulguration of the bleeding site has occurred. Patient has no further hematuria is feeling quite well. Hemoglobin is stable the patient will be transferred back to the extended care facility today. To complete approximately a week of the intravenous antibiotic therapy. This is for the treatment of the multidrug resistant E. coli discitis and osteomyelitis of the spine which is showing marked improvement. He should follow-up in the office at that point in time in follow blood work is requested. He will be following up with urology regarding the management of his urinary catheter. His been related that with resolution of his bleeding his anticoagulation will likely restart. Status: Acute Code(s): R31.0 - GROSS HEMATURIA SNOMED Code(s): 831753049
--- NOTE | 2019-02-26 11:30 | CDI ---
Documentation Clarification Form Date: 02/26/2019 10:14:00 AM From: Andreea Gandara Natalie Mendez, Escalator Mechanic Hours-8:30 am & 5 pm M-F Admit Date: 02/05/2019 4:34:00 PM Patient Name: Griffin Summers Visit Number: [id number] Discharge Date: 02/07/2019 2:37:00 PM ATTENTION: The Clinical Documentation Specialists (CDI) and [facility] Coding Staff appreciate your assistance in clarifying documentation. Please respond to the clarification below the line at the bottom and electronically sign. The CDI & [facility] Coding staff will review the response and follow-up if needed. Please note: Queries are made part of the Legal Health Record. If you have any questions, please contact the author of this message via ITS. Dr. Benson Nuñez Patient was admitted with blood clots in the Sherwood and Sepsis due to UTI. 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 Treatment: IV Abx In your professional opinion, can you please clarify the etiology of the UTI, if known? Sherwood catheter UTI not related to catheter Other condition, please specify Unable to determine MTDD
== END 2019-02-07 14:37 | DRG 871 ==
LOC: EC 14:56 → 4SSUR 16:34
PROVIDERS: ADMIT Internal Medicine; ATTEND Internal Medicine
PROC: 0T5D8ZZ Destruction of Urethra, Via Natural or Artificial Opening Endoscopic (ICD-10-PCS; 2019-02-06)
PROC: 30233N1 Transfusion of Nonautologous Red Blood Cells into Peripheral Vein, Percutaneous Approach (ICD-10-PCS; 2019-02-06)
PROC: 0TCB8ZZ Extirpation of Matter from Bladder, Via Natural or Artificial Opening Endoscopic (ICD-10-PCS; principal; 2019-02-06 18:22)
DX: A41.9 Sepsis, unspecified organism (principal); G06.1 Intraspinal abscess and granuloma; C77.5 Secondary and unspecified malignant neoplasm of intrapelvic lymph nodes; C78.7 Secondary malignant neoplasm of liver and intrahepatic bile duct; I48.92 Unspecified atrial flutter; D62 Acute posthemorrhagic anemia; N39.0 Urinary tract infection, site not specified; E87.2 Acidosis; I95.9 Hypotension, unspecified; R31.0 Gross hematuria; I48.91 Unspecified atrial fibrillation; C61 Malignant neoplasm of prostate; Z66 Do not resuscitate; N40.1 Benign prostatic hyperplasia with lower urinary tract symptoms; K21.9 Gastro-esophageal reflux disease without esophagitis; I10 Essential (primary) hypertension; E78.5 Hyperlipidemia, unspecified; R00.0 Tachycardia, unspecified; M46.46 Discitis, unspecified, lumbar region; R33.9 Retention of urine, unspecified; E03.9 Hypothyroidism, unspecified; T83.091A Other mechanical complication of indwelling urethral catheter, initial encounter; Z79.890 Hormone replacement therapy; Z79.899 Other long term (current) drug therapy; Z79.01 Long term (current) use of anticoagulants; Z85.828 Personal history of other malignant neoplasm of skin; Z98.42 Cataract extraction status, left eye; Z98.41 Cataract extraction status, right eye; Z86.711 Personal history of pulmonary embolism; Z86.61 Personal history of infections of the central nervous system; Z80.0 Family history of malignant neoplasm of digestive organs
CPT/HCPCS: 36415; 51702; 70450; 72125; 76770; 80048; 81001; 82075; 82247; 82310; 82728; 83540; 83550; 83605; 84153; 84450; 84460; 85025; 85027; 85610; 85730; 86850; 86900; 86901; 86920; 87086; 93005; 96360; 96361; 99284; 99285

== ENCOUNTER → 2019-03-01 | Outpatient (CLI) | payer MEDICARE, OTHER ==
[~2019-03-01] MED LIST: LEUPROLIDE ACETATE 22.5 MG SYRG KIT IM NR
[2019-03-01 14:04] VITALS: BP 134/87; PULSE 79; RESP 18; TEMP 97
== END ==
LOC: PROCWHC3 13:36 → EDSTATUS 14:00
PROVIDERS: ATTEND Internal Medicine Hematology & Oncology
DX: C61 Malignant neoplasm of prostate (principal)
CPT/HCPCS: 96372; J9217

== ENCOUNTER → 2019-05-21 | Outpatient (CLI) | payer MEDICARE, OTHER ==
[2019-05-21 13:26] LABS: Basophils % (A) 1 %; Eosinophils # (A) 0.2 k/uL (0-0.7); Eosinophils % (A) 2 %; HCT 37.2 % (39.0-53.0); HGB 11.9 gm/dL (13.0-17.5); Lymphocytes # (A) 2.3 k/uL (1.0-4.8); Lymphocytes % (A) 37 %; MCH 27.1 pg (25.0-35.0); MCHC 32.1 g/dL (31.0-37.0); MCV 84.3 fL (80.0-100.0); Mean Platelet Volume 6.6; Monocytes # (A) 0.4 k/uL (0-1.0); Monocytes % (A) 7 %; Neutrophils # (A) 3.1 k/uL (1.3-7.7); Neutrophils % (A) 51 %; Platelet Count 259 k/uL (150-450); RBC 4.41 m/uL (4.30-5.90); RDW 14.7 % (11.5-15.5); WBC 6.1 k/uL (3.8-10.6)
[2019-05-21 13:46] LABS: Partial Thromboplastin Time 26.6 sec (22.0-30.0); Prothrombin Time 10.3 sec (9.0-12.0)
[2019-05-21 19:13] LABS: African American GFR (CKD) 95.7 (60.0-200.0); Albumin 4.2 g/dL (3.80-4.90); Albumin/Globulin Ratio 1.62 (1.60-3.17); Anion Gap 10.4 mmol/L (4.00-12.00); BUN/Creat Ratio 22.5 Ratio (12.00-20.00); Bilirubin, Conjugated 0.2 mg/dL (0.20-0.40); Bilirubin,Unconjugated 0.3 mg/dL; Calcium 10.2 mg/dL (8.7-10.3); Carbon Dioxide 26.6 mmol/L (21.6-31.8); Globulin 2.6 g/dL (1.6-3.3); Total Bilirubin 0.5 mg/dL (0.3-1.2); Total Protein 6.8 g/dL (6.2-8.2)
== END | disposition home or self-care (01) ==
LOC: LABWHC1 12:48
PROVIDERS: ATTEND Radiology Diagnostic Radiology
DX: K76.9 Liver disease, unspecified (principal)
CPT/HCPCS: 36415; 80048; 80076; 82105; 85025; 85610; 85730

== ENCOUNTER → 2019-06-03 | Outpatient (CLI) | payer MEDICARE, OTHER ==
[~2019-06-03] MED LIST changes: -LEUPROLIDE ACETATE 22.5 MG SYRG KIT IM NR; +LEUPROLIDE ACETATE 22.5 MG SYRG KIT IM ONE
[2019-06-03 11:39] VITALS: BP 130/79; PULSE 75; RESP 18; TEMP 97.8
== END ==
LOC: EDSTATUS 05-31 11:30 → PROCWHC3 11:22
PROVIDERS: ATTEND Internal Medicine Hematology & Oncology
DX: C61 Malignant neoplasm of prostate (principal)
CPT/HCPCS: 96372; J9217

== ENCOUNTER → 2019-07-12 | Outpatient (CLI) | payer MEDICARE, OTHER ==
[2019-07-12 12:01] LABS: Appearance,Urine Clear (Clear); Bilirubin,Urine Negative (Negative); Blood,Urine Negative (Negative); Color,Urine Yellow; Glucose,Urine (UA) Negative (Negative); Ketones,Urine Negative (Negative); Leukocyte Esterase,Urine Negative (Negative); Nitrite,Urine Negative (Negative); PH, Urine 6.5 (5.0-8.0); Protein,Urine Negative (Negative); Specific Gravity,Urine 1.017 (1.001-1.035); Urobilinogen,Urine <2.0 mg/dL (<2.0)
== END | disposition home or self-care (01) ==
LOC: LABWHC1 11:05
PROVIDERS: ATTEND Radiology Radiation Oncology
DX: C61 Malignant neoplasm of prostate (principal)
CPT/HCPCS: 36415; 81003; 84153; 87086

== ENCOUNTER → 2019-09-03 | Outpatient (CLI) | payer MEDICARE, OTHER ==
[2019-09-03 11:30] VITALS: BP 130/78; PULSE 68; RESP 14; TEMP 97.6
== END | disposition home or self-care (01) ==
LOC: PROCWHC3 11:19
PROVIDERS: ATTEND Internal Medicine Hematology & Oncology
DX: Z51.11 Encounter for antineoplastic chemotherapy (principal); C61 Malignant neoplasm of prostate
CPT/HCPCS: 96402; J9217

== ENCOUNTER → 2019-09-20 | Outpatient (CLI) | payer MEDICARE, OTHER ==
[2019-09-20 13:06] LABS: HCT 37.1 % (39.0-53.0); MCH 28.5 pg (25.0-35.0); MCHC 32.4 g/dL (31.0-37.0); Mean Platelet Volume 6.8; Platelet Count 215 k/uL (150-450); RBC 4.21 m/uL (4.30-5.90); RDW 15.7 % (11.5-15.5); WBC 3.8 k/uL (3.8-10.6)
[2019-09-20 13:16] LABS: ALT 27 U/L (21-72); AST 30 U/L (17-59); African American GFR (CKD) 86 (>60 ml/min/1.73 sqM); Albumin 4.2 g/dL (3.5-5.0); Albumin/Globulin Ratio 1.1; Alkaline Phosphatase 97 U/L (38-126); Anion Gap 9 mmol/L; Bilirubin,Unconjugated 0.5 mg/dL (0.0-1.1); Blood Urea Nitrogen 22 mg/dL (9-20); Calcium 10.6 mg/dL (8.4-10.2); Carbon Dioxide 27 mmol/L (22-30); Chloride 106 mmol/L (98-107); Globulin 3.7 g/dL; Glucose 95 mg/dL (74-99); Potassium 4.3 mmol/L (3.5-5.1); Sodium 142 mmol/L (137-145); Total Bilirubin 0.7 mg/dL (0.2-1.3); Total Protein 7.9 g/dL (6.3-8.2)
[2019-09-20 13:26] LABS: Basophils # (M) 0.04 k/uL (0-0.2); Eosinophils # (M) 0.19 k/uL (0-0.7); Lymphocytes # (M) 0.46 k/uL (1.0-4.8); Neutrophils % (M) 61 %; Nucleated Red Blood Cells 0 /100 WBC (0-0); Total Cells Counted 100
[2019-09-20 13:27] LABS: Poikilocytosis (M) Present
== END | disposition home or self-care (01) ==
LOC: LABWHC1 12:42
PROVIDERS: ATTEND Radiology Diagnostic Radiology
DX: C22.0 Liver cell carcinoma (principal)
CPT/HCPCS: 36415; 80048; 80076; 82105; 85025

== ENCOUNTER → 2019-09-27 | Outpatient (CLI) | payer MEDICARE, OTHER | END | disposition home or self-care (01) | LOC: LABWHC1 12:22 | PROVIDERS: ATTEND Radiology Radiation Oncology | DX: C61 Malignant neoplasm of prostate (principal); C77.5 Secondary and unspecified malignant neoplasm of intrapelvic lymph nodes | CPT/HCPCS: 36415; 84153 ==

== ENCOUNTER → 2019-12-09 | Outpatient (CLI) | payer MEDICARE, OTHER ==
[2019-12-09 10:01] VITALS: BP 142/83; PULSE 66; RESP 18; TEMP 98.1
== END | disposition home or self-care (01) ==
LOC: PROCWHC3 09:51
PROVIDERS: ATTEND Internal Medicine Hematology & Oncology
DX: Z51.11 Encounter for antineoplastic chemotherapy (principal); C61 Malignant neoplasm of prostate
CPT/HCPCS: 96402; J9217

== ENCOUNTER → 2020-01-07 | Outpatient (CLI) | payer MEDICARE, OTHER | LOC: LABWHC1 13:18 | PROVIDERS: ATTEND Radiology Radiation Oncology | DX: C61 Malignant neoplasm of prostate (principal); C77.5 Secondary and unspecified malignant neoplasm of intrapelvic lymph nodes | CPT/HCPCS: 36415; 84153 ==

== ENCOUNTER → 2020-01-14 | Outpatient (CLI) | payer MEDICARE, OTHER ==
[2020-01-14 12:02] LABS: INR 1.1 (<1.2)
[2020-01-14 12:17] LABS: HGB 12.2 gm/dL (13.0-17.5); MCH 31.9 pg (25.0-35.0); MCHC 36.9 g/dL (31.0-37.0); MCV 86.5 fL (80.0-100.0); Mean Platelet Volume 7.6; Platelet Count 176 k/uL (150-450); RBC 3.81 m/uL (4.30-5.90); RDW 14.6 % (11.5-15.5); WBC 3.7 k/uL (3.8-10.6)
[2020-01-14 12:34] LABS: Eosinophils # (M) 0.04 k/uL (0-0.7); Lymphocytes # (M) 0.85 k/uL (1.0-4.8); Monocytes # (M) 0.37 k/uL (0-1.0); Neutrophils # (M) 2.44 k/uL (1.3-7.7); Neutrophils % (M) 66 %; Nucleated Red Blood Cells 0 /100 WBC (0-0); Poikilocytosis (M) Present; Total Cells Counted 100
[2020-01-14 17:25] LABS: African American GFR (CKD) 79.7 (60.0-200.0); Albumin 4.1 g/dL (3.80-4.90); Albumin/Globulin Ratio 1.78 (1.60-3.17); Anion Gap 8.5 mmol/L (4.00-12.00); Bilirubin, Conjugated 0.2 mg/dL (0.20-0.40); Bilirubin,Unconjugated 0.6 mg/dL; Calcium 10.2 mg/dL (8.7-10.3); Carbon Dioxide 26.5 mmol/L (21.6-31.8); Globulin 2.3 g/dL (1.6-3.3); Non-African American GFR(CKD) 68.8 (60.0-200.0); Potassium 4.1 mmol/L (3.5-5.5); Total Bilirubin 0.8 mg/dL (0.2-1.2); Total Protein 6.4 g/dL (6.2-8.2)
== END | disposition home or self-care (01) ==
LOC: LABWHC1 11:01
PROVIDERS: ATTEND Internal Medicine Hepatology
DX: K75.81 Nonalcoholic steatohepatitis (NASH) (principal); K74.60 Unspecified cirrhosis of liver; C22.0 Liver cell carcinoma
CPT/HCPCS: 36415; 80048; 80076; 82105; 85025; 85610

== ENCOUNTER 2020-01-20 16:56 | Emergency (ER) | payer MEDICARE, OTHER ==
[2020-01-20 17:08] VITALS: TEMP 98.7
[2020-01-20] MEDS ORDERED: SODIUM CHLORIDE 0.9% 1,000 ML IV STA ×2 (17:35)
[2020-01-20] MEDS ORDERED: METOPROLOL TARTRATE 5 MG/5 ML VIAL IVP STA (17:36)
[2020-01-20 17:53] LABS: Basophils % (A) 1 %; Eosinophils # (A) 0.1 k/uL (0-0.7); Eosinophils % (A) 3 %; HCT 39.4 % (39.0-53.0); HGB 12.9 gm/dL (13.0-17.5); Lymphocytes # (A) 0.8 k/uL (1.0-4.8); Lymphocytes % (A) 18 %; MCH 28.2 pg (25.0-35.0); MCHC 32.8 g/dL (31.0-37.0); MCV 85.9 fL (80.0-100.0); Mean Platelet Volume 7.4; Monocytes # (A) 0.4 k/uL (0-1.0); Monocytes % (A) 9 %; Neutrophils # (A) 2.8 k/uL (1.3-7.7); Neutrophils % (A) 66 %; Platelet Count 186 k/uL (150-450); RBC 4.59 m/uL (4.30-5.90); RDW 14.8 % (11.5-15.5); WBC 4.3 k/uL (3.8-10.6)
[2020-01-20 18:04] LABS: ALT 23 U/L (4-49); AST 38 U/L (17-59); African American GFR (CKD) >90 (>60 ml/min/1.73 sqM); Albumin 4.4 g/dL (3.5-5.0); Alkaline Phosphatase 93 U/L (38-126); Anion Gap 10 mmol/L; Blood Urea Nitrogen 19 mg/dL (9-20); Calcium 10.1 mg/dL (8.4-10.2); Carbon Dioxide 23 mmol/L (22-30); Chloride 106 mmol/L (98-107); Glucose 113 mg/dL (74-99); Magnesium 1.9 mg/dL (1.6-2.3); Non-African American GFR(CKD) 79 (>60 ml/min/1.73 sqM); Phosphorus 3.4 mg/dL (2.5-4.5); Potassium 4.1 mmol/L (3.5-5.1); Prothrombin Time 10.2 sec (9.0-12.0); Sodium 139 mmol/L (137-145); Total Bilirubin 0.7 mg/dL (0.2-1.3); Total Protein 7.8 g/dL (6.3-8.2)
[2020-01-20] MEDS ORDERED: Kcentra PER PHARMACY 1 EACH MISC MISCELLANE PRN (18:24)
--- NOTE | 2020-01-20 18:33 | ED ---
Recheck HPI - General Chief Complaint: Recheck/Abnormal Lab/Rx Stated Complaint: sent by dr/aorta tear Time Seen by Provider: 01/20/20 17:22 Source: patient, RN notes reviewed, old records reviewed Mode of arrival: ambulatory Limitations: no limitations - History of Present Illness Initial Comments: This is a 4-year-old male with follow-up with GI doctor cell GI facility a and history for [facility] for liver metastases and multiple abnormal findings that his been getting procedures and treatments for outpatient today has no new complaints per was called secondary to abnormal outpatient computed tomography scan which she really showed aneurysm and dissection of his aorta. Again patient is without chest pain now when he has not recalled any episodes of chest pain recently. Patient has no complaints MD Complaint: other (Abnormal outpatient computed tomography scan) -: unknown (Unknown although patient had computed tomography scan on Monday) Returns Today for: Called Because of Abnormal Lab/Test (Patient abnormal computed tomography scan of chest showing aortic aneurysm with dissection) Symptoms Since Prior Visit: no new symptoms Context: planned re-check (Sent to ER for further evaluation regarding CT findings) Associated Symptoms: none - Related Data Home Medications Medication Instructions Recorded Confirmed Levothyroxine Sodium [Synthroid] 100 mcg PO DAILY@0600 01/09/18 12/09/19 Pantoprazole Sodium [Protonix] 40 mg PO DAILY@0600 01/09/18 12/09/19 Tamsulosin HCl [Flomax] 0.4 mg PO DAILY 01/09/18 12/09/19 Cholecalciferol [Vitamin D3 (25 1,000 unit PO DAILY 12/02/18 12/09/19 Mcg = 1000 Iu)] Apixaban [Eliquis] 5 mg PO BID 01/26/19 12/09/19 Diltiazem Cd [Cardizem CD] 120 mg PO DAILY 01/26/19 12/09/19 Metoprolol Tartrate [Lopressor] 25 mg PO BID 01/26/19 12/09/19 Leuprolide Acetate [Lupron Depot] 22.5 mg IM DIRECTED 06/03/19 12/09/19 Allergies Allergy/AdvReac Type Severity Reaction Status Date / Time No Known Allergies Allergy Verified 01/20/20 17:08 Review of Systems ROS Statement: Those systems with pertinent positive or pertinent negative responses have been documented in the HPI. ROS Other: All systems not noted in ROS Statement are negative. 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 Date of last positivie culture/infection: 12/19/18 MDRO Source:: Urine-VRE Past Surgical History: Adenoidectomy, Back Surgery, Hernia Repair, Joint Replacement, Prostate Surgery, Tonsillectomy Additional Past Surgical History / Comment(s): PARATHYROID SX, ESOPHAGEAL SX FOR ACHALASIA,VARICOSE VEIN SX,BILAT CATARAT SX, spinal abscess drainage, Past Anesthesia/Blood Transfusion Reactions: No Reported Reaction Past Psychological History: No Psychological Hx Reported Smoking Status: Never smoker - Past Family History Mother Family Medical History: Cancer Additional Family Medical History / Comment(s): COLON General Exam Limitations: no limitations General appearance: alert, in no apparent distress Head exam: Present: atraumatic, normocephalic, normal inspection Eye exam: Present: normal appearance, PERRL, EOMI. Absent: scleral icterus, conjunctival injection, periorbital swelling ENT exam: Present: normal exam, mucous membranes moist Neck exam: Present: normal inspection. Absent: tenderness, meningismus, lymphadenopathy Respiratory exam: Present: normal lung sounds bilaterally. Absent: respiratory distress, wheezes, rales, rhonchi, stridor Cardiovascular Exam: Present: normal rhythm, tachycardia, normal heart sounds. Absent: systolic murmur, diastolic murmur, rubs, gallop, clicks GI/Abdominal exam: Present: soft, normal bowel sounds. Absent: distended, tenderness, guarding, rebound, rigid Extremities exam: Present: normal inspection, full ROM, normal capillary refill. Absent: tenderness, pedal edema, joint swelling, calf tenderness Back exam: Present: normal inspection Neurological exam: Present: alert, oriented X3, CN II-XII intact Psychiatric exam: Present: normal affect, normal mood Skin exam: Present: warm, dry, intact, normal color. Absent: rash Course Vital Signs 01/20/20 01/20/20 01/20/20 17:01 17:45 18:00 Temperature 98.7 F Pulse Rate 103 H 74 70 Respiratory 18 16 17 Rate Blood Pressure 142/89 102/75 118/79 O2 Sat by Pulse 97 95 96 Oximetry - Reevaluation(s) Reevaluation #1: 01/20/20 18:30 Medical records reviewed including report of outpatient computed tomography scan Reevaluation #2: 01/20/20 18:31 Patient remains without complaint here in the ER blood pressure is normal and has been stable throughout stay, mildly labile but never elevated Reevaluation #3: 01/20/20 18:31 Spoke with family updated regarding results of care plan, questions are answered - Consultations Consultation #1: Spoke with both on-call vascular surgery and CVT surgery who prefer patient transfer Consultation #2: Spoke with Dr. 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 Patient transferred to [facility] for further evaluation management treatment - Lab Data Result diagrams: 01/20/20 17:18 01/20/20 17:18 Lab Results 01/20/20 01/20/20 01/20/20 Range/Units 17:18 17:18 17:18 WBC 4.3 (3.8-10.6) k/uL RBC 4.59 (4.30-5.90) m/uL Hgb 12.9 L (13.0-17.5) gm/dL Hct 39.4 (39.0-53.0) % MCV 85.9 (80.0-100.0) fL MCH 28.2 (25.0-35.0) pg MCHC 32.8 (31.0-37.0) g/dL RDW 14.8 (11.5-15.5) % Plt Count 186 (150-450) k/uL Neutrophils % 66 % Lymphocytes % 18 % Monocytes % 9 % Eosinophils % 3 % Basophils % 1 % Neutrophils # 2.8 (1.3-7.7) k/uL Lymphocytes # 0.8 L (1.0-4.8) k/uL Monocytes # 0.4 (0-1.0) k/uL Eosinophils # 0.1 (0-0.7) k/uL Basophils # 0.0 (0-0.2) k/uL PT 10.2 (9.0-12.0) sec INR 1.0 (<1.2) APTT 25.0 (22.0-30.0) sec Sodium 139 (137-145) mmol/L Potassium 4.1 (3.5-5.1) mmol/L Chloride 106 (98-107) mmol/L Carbon Dioxide 23 (22-30) mmol/L Anion Gap 10 mmol/L BUN 19 (9-20) mg/dL Creatinine 0.89 (0.66-1.25) mg/dL Est GFR (CKD-EPI)AfAm >90 (>60 ml/min/1.73 sqM) Est GFR (CKD-EPI)NonAf 79 (>60 ml/min/1.73 sqM) Glucose 113 H (74-99) mg/dL Plasma Lactic Acid Zane (0.7-2.0) mmol/L Calcium 10.1 (8.4-10.2) mg/dL Phosphorus 3.4 (2.5-4.5) mg/dL Magnesium 1.9 (1.6-2.3) mg/dL Total Bilirubin 0.7 (0.2-1.3) mg/dL AST 38 (17-59) U/L ALT 23 (4-49) U/L Alkaline Phosphatase 93 (38-126) U/L Troponin I (0.000-0.034) ng/mL Total Protein 7.8 (6.3-8.2) g/dL Albumin 4.4 (3.5-5.0) g/dL 01/20/20 01/20/20 Range/Units 17:18 17:18 WBC (3.8-10.6) k/uL RBC (4.30-5.90) m/uL Hgb (13.0-17.5) gm/dL Hct (39.0-53.0) % MCV (80.0-100.0) fL MCH (25.0-35.0) pg MCHC (31.0-37.0) g/dL RDW (11.5-15.5) % Plt Count (150-450) k/uL Neutrophils % % Lymphocytes % % Monocytes % % Eosinophils % % Basophils % % Neutrophils # (1.3-7.7) k/uL Lymphocytes # (1.0-4.8) k/uL Monocytes # (0-1.0) k/uL Eosinophils # (0-0.7) k/uL Basophils # (0-0.2) k/uL PT (9.0-12.0) sec INR (<1.2) APTT (22.0-30.0) sec Sodium (137-145) mmol/L Potassium (3.5-5.1) mmol/L Chloride (98-107) mmol/L Carbon Dioxide (22-30) mmol/L Anion Gap mmol/L BUN (9-20) mg/dL Creatinine (0.66-1.25) mg/dL Est GFR (CKD-EPI)AfAm (>60 ml/min/1.73 sqM) Est GFR (CKD-EPI)NonAf (>60 ml/min/1.73 sqM) Glucose (74-99) mg/dL Plasma Lactic Acid Zane 1.9 (0.7-2.0) mmol/L Calcium (8.4-10.2) mg/dL Phosphorus (2.5-4.5) mg/dL Magnesium (1.6-2.3) mg/dL Total Bilirubin (0.2-1.3) mg/dL AST (17-59) U/L ALT (4-49) U/L Alkaline Phosphatase (38-126) U/L Troponin I <0.012 (0.000-0.034) ng/mL Total Protein (6.3-8.2) g/dL Albumin (3.5-5.0) g/dL Critical Care Time Critical Care Time: Yes Total Critical Care Time: 31 Disposition Clinical Impression: Thoracic aortic aneurysm, Type 1 dissection of ascending aorta, Coagulopathy Disposition: ADMITTED IP TO THIS [facility] Condition: Fair Is patient prescribed a controlled substance at d/c from ED?: No Referrals: Leonard Bowser MD [Primary Care Provider] - 1-2 days
[2020-01-20 19:27] VITALS: BP 134/81; PULSE 77; RESP 16
== END 2020-01-20 19:26 | disposition other institution (70) ==
LOC: EC 16:56
DX: I71.01 Dissection of thoracic aorta (principal); I71.2 Thoracic aortic aneurysm, without rupture; D68.9 Coagulation defect, unspecified; E78.5 Hyperlipidemia, unspecified; I10 Essential (primary) hypertension; K21.9 Gastro-esophageal reflux disease without esophagitis; Z79.01 Long term (current) use of anticoagulants; Z79.899 Other long term (current) drug therapy; Z85.828 Personal history of other malignant neoplasm of skin; Z85.05 Personal history of malignant neoplasm of liver; Z85.46 Personal history of malignant neoplasm of prostate; Z98.890 Other specified postprocedural states
CPT/HCPCS: 36415; 80053; 83605; 83735; 84100; 84484; 85025; 85610; 85730; 96360; 96361; 99285

== ENCOUNTER → 2020-03-10 | Outpatient (CLI) | payer MEDICARE, OTHER ==
[~2020-03-10] MED LIST changes: +LEUPROLIDE ACETATE 22.5 MG SYRG KIT IM NR; -LEUPROLIDE ACETATE 22.5 MG SYRG KIT IM ONE
[2020-03-10 10:44] VITALS: BP 141/91; PULSE 60; RESP 16; TEMP 97.8
== END | disposition home or self-care (01) ==
LOC: PROCWHC3 10:35
PROVIDERS: ATTEND Internal Medicine Hematology & Oncology
DX: Z51.11 Encounter for antineoplastic chemotherapy (principal); C61 Malignant neoplasm of prostate
CPT/HCPCS: 96402

== ENCOUNTER → 2020-05-12 | Outpatient (CLI) | payer MEDICARE, OTHER | END | disposition home or self-care (01) | LOC: LABWHC1 10:25 | PROVIDERS: ATTEND Radiology Radiation Oncology | DX: C61 Malignant neoplasm of prostate (principal); C77.5 Secondary and unspecified malignant neoplasm of intrapelvic lymph nodes; Z92.3 Personal history of irradiation | CPT/HCPCS: 36415; 84153 ==

== ENCOUNTER → 2020-06-11 | Outpatient (CLI) | payer MEDICARE, OTHER ==
[2020-06-11 09:43] VITALS: BP 119/74; PULSE 71; TEMP 97.9
== END | disposition home or self-care (01) ==
LOC: PROCWHC3 09:22
PROVIDERS: ATTEND Internal Medicine Hematology & Oncology
DX: Z51.11 Encounter for antineoplastic chemotherapy (principal); C61 Malignant neoplasm of prostate
CPT/HCPCS: 96402; J9217

== ENCOUNTER → 2020-09-10 | Outpatient (CLI) | payer MEDICARE, OTHER ==
[2020-09-10 10:50] VITALS: BP 118/67; PULSE 93; RESP 16
== END | disposition home or self-care (01) ==
LOC: PROCWHC3 10:34
PROVIDERS: ATTEND Internal Medicine Hematology & Oncology
DX: Z51.11 Encounter for antineoplastic chemotherapy (principal); C61 Malignant neoplasm of prostate
CPT/HCPCS: 96402; J9217

== ENCOUNTER → 2020-12-10 | Outpatient (CLI) | payer MEDICARE ==
[2020-12-10 10:12] VITALS: BP 135/79; PULSE 76; RESP 16; TEMP 97.7
== END | disposition home or self-care (01) ==
LOC: PROCWHC3 09:51
PROVIDERS: ATTEND Internal Medicine Hematology & Oncology
DX: Z51.11 Encounter for antineoplastic chemotherapy (principal); C61 Malignant neoplasm of prostate
CPT/HCPCS: 96402; J9217

== ENCOUNTER → 2021-04-08 | Outpatient (CLI) | payer MEDICARE ==
[2021-04-08 10:54] VITALS: BP 147/84; PULSE 76; RESP 16; TEMP 97.9
== END ==
LOC: PROCWHC3 10:25
PROVIDERS: ATTEND Internal Medicine Hematology & Oncology
DX: C61 Malignant neoplasm of prostate (principal)
CPT/HCPCS: 96402; J9217

== ENCOUNTER → 2021-07-13 | Outpatient (CLI) | payer MEDICARE ==
[2021-07-13 10:35] VITALS: BP 135/74; PULSE 93; RESP 16; TEMP 99.4
== END ==
LOC: PROCWHC3 10:20
PROVIDERS: ATTEND Internal Medicine Hematology & Oncology
DX: C61 Malignant neoplasm of prostate (principal)
CPT/HCPCS: 96402; J9217

== ENCOUNTER → 2021-10-13 | Outpatient (CLI) | payer MEDICARE ==
[2021-10-13 10:39] VITALS: BP 144/80; PULSE 60; RESP 16; TEMP 98.3
== END ==
LOC: PROCWHC3 09:54
PROVIDERS: ATTEND Internal Medicine Hematology & Oncology
DX: C61 Malignant neoplasm of prostate (principal)
CPT/HCPCS: 96402; J9217

== ENCOUNTER → 2022-01-14 | Outpatient (CLI) | payer MEDICARE ==
[2022-01-14 10:48] VITALS: BP 149/78; PULSE 79; RESP 16; TEMP 97.9
== END ==
LOC: PROCWHC3 10:26
PROVIDERS: ATTEND Internal Medicine Hematology & Oncology
DX: C61 Malignant neoplasm of prostate (principal)
CPT/HCPCS: 96401; J9217

== ENCOUNTER 2022-03-03 04:03 | Emergency (ER) | payer MEDICARE ==
[2022-03-03 04:20] VITALS: RESP 16; TEMP 98
[2022-03-03] MEDS ORDERED: ONDANSETRON 4 MG/2 ML VIAL IVP STA (06:32)
[2022-03-03] MEDS ORDERED: SODIUM CHLORIDE 0.9% 2,000 ML IV STA (06:32)
[2022-03-03] MEDS ORDERED: HYDROmorphone 0.5 MG/0.5 ML SYRINGE IVP STA (06:32)
[2022-03-03] MEDS ORDERED: SODIUM CHLORIDE 0.9% 1,000 ML IV ONE (06:34)
[2022-03-03] MEDS ORDERED: KETOROLAC 15 MG/ML 1 ML VIAL IVP STA (06:35)
--- NOTE | 2022-03-03 06:45 | ED ---
Male Urogenital HPI - General Chief complaint: Urogenital Stated complaint: Blood in urine Time Seen by Provider: 03/03/22 06:19 Source: patient, RN notes reviewed Mode of arrival: ambulatory Limitations: no limitations - History of Present Illness Initial comments: 86-year-old male presents emergency from chief complaint of blood in his urine. Patient does have history of prior prostate cancer with radiation treatment. Patient states that his last radiation treatment was several years ago. He states he has been noticing he's had some dysuria and has an appointment with urology, not but states that last for hours developed blood in his urine and states that he was unable to go to have history Himself. Patient states her blood clots at the time. Patient adamant that he's had a straight cath in the past. Patient denies any recent. Shows night sweats or nausea vomiting. Patient states his abdominal pain has resolved patient offers no other associated symptoms. Patient does admit that he is on eliquis for prior aortic graft - Related Data Home Medications Medication Instructions Recorded Confirmed Levothyroxine Sodium [Synthroid] 100 mcg PO DAILY@0600 01/09/18 01/14/22 Pantoprazole Sodium [Protonix] 40 mg PO DAILY@0600 01/09/18 01/14/22 Tamsulosin HCl [Flomax] 0.4 mg PO DAILY 01/09/18 01/14/22 Cholecalciferol [Vitamin D3 (25 1,000 unit PO DAILY 12/02/18 01/14/22 Mcg = 1000 Iu)] Leuprolide Acetate [Lupron Depot] 22.5 mg IM DIRECTED 06/03/19 01/14/22 Apixaban [Eliquis] 1 tab PO DAILY 04/08/21 01/14/22 Furosemide [Lasix] 1 tab PO DAILY 04/08/21 01/14/22 Metoprolol Succinate (ER) [Toprol 1 tab PO DAILY 04/08/21 01/14/22 XL] lisinopriL [Prinivil] 1 tab PO DAILY 07/13/21 01/14/22 Previous Rx's Medication Instructions Recorded Cephalexin [Keflex] 500 mg PO Q8HR #21 cap 03/03/22 Allergies Allergy/AdvReac Type Severity Reaction Status Date / Time No Known Allergies Allergy Verified 03/03/22 07:31 Review of Systems ROS Statement: Those systems with pertinent positive or pertinent negative responses have been documented in the HPI. ROS Other: All systems not noted in ROS Statement are negative. 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 Date of last positivie culture/infection: 12/19/18 MDRO Source:: Urine-VRE Past Surgical History: Adenoidectomy, Back Surgery, Hernia Repair, Joint Replace ment, Prostate Surgery, Tonsillectomy Additional Past Surgical History / Comment(s): PARATHYROID SX, ESOPHAGEAL SX FOR ACHALASIA,VARICOSE VEIN SX,BILAT CATARAT SX, spinal abscess drainage, Past Anesthesia/Blood Transfusion Reactions: No Reported Reaction Past Psychological History: No Psychological Hx Reported Smoking Status: Never smoker Past Alcohol Use History: Rare Past Drug Use History: None Reported - Past Family History Mother Family Medical History: Cancer Additional Family Medical History / Comment(s): COLON General Exam Limitations: no limitations General appearance: alert, in no apparent distress Head exam: Present: atraumatic, normocephalic, normal inspection Respiratory exam: Present: normal lung sounds bilaterally. Absent: respiratory distress, wheezes, rales, rhonchi, stridor Cardiovascular Exam: Present: regular rate, normal rhythm, normal heart sounds. Absent: systolic murmur, diastolic murmur, rubs, gallop, clicks GI/Abdominal exam: Present: soft, normal bowel sounds. Absent: distended, tenderness, guarding, rebound, rigid Back exam: Absent: CVA tenderness (R), CVA tenderness (L) Neurological exam: Present: alert Course Vital Signs 03/03/22 04:15 Temperature 98 F Pulse Rate 94 Respiratory 16 Rate Blood Pressure 127/82 O2 Sat by Pulse 98 Oximetry Medical Decision Making - Medical Decision Making 86-year-old male presented for hematuria. Patient's lab work within normal limits. Patient able to urinate. Patient may have underlying infection as she's had some dysuria. Patient was placed on antibiotics pending urology follow-up on Monday he'll return to emergency room for any other worsening changes symptoms. Patient agrees to plan. Patient unable to stop his blood thinners secondary to have aortic graft. - Lab Data Result diagrams: 03/03/22 06:44 03/03/22 06:44 Lab Results 03/03/22 03/03/22 03/03/22 Range/Units 06:44 06:44 07:07 WBC 7.6 (3.8-10.6) k/uL RBC 4.36 (4.30-5.90) m/uL Hgb 13.0 (13.0-17.5) gm/dL Hct 39.3 (39.0-53.0) % MCV 90.2 (80.0-100.0) fL MCH 29.9 (25.0-35.0) pg MCHC 33.1 (31.0-37.0) g/dL RDW 15.3 (11.5-15.5) % Plt Count 170 (150-450) k/uL MPV 7.8 Neutrophils % 74 % Lymphocytes % 12 % Monocytes % 9 % Eosinophils % 2 % Basophils % 1 % Neutrophils # 5.6 (1.3-7.7) k/uL Lymphocytes # 0.9 L (1.0-4.8) k/uL Monocytes # 0.7 (0-1.0) k/uL Eosinophils # 0.1 (0-0.7) k/uL Basophils # 0.1 (0-0.2) k/uL Sodium 137 (137-145) mmol/L Potassium 4.0 (3.5-5.1) mmol/L Chloride 106 (98-107) mmol/L Carbon Dioxide 24 (22-30) mmol/L Anion Gap 7 mmol/L BUN 26 H (9-20) mg/dL Creatinine 0.96 (0.66-1.25) mg/dL Est GFR (CKD-EPI)AfAm 83 (>60 ml/min/1.73 sqM) Est GFR (CKD-EPI)NonAf 72 (>60 ml/min/1.73 sqM) Glucose 114 H (74-99) mg/dL Calcium 9.7 (8.4-10.2) mg/dL Total Bilirubin 1.2 (0.2-1.3) mg/dL AST 41 (17-59) U/L ALT 38 (4-49) U/L Alkaline Phosphatase 83 (38-126) U/L Total Protein 7.2 (6.3-8.2) g/dL Albumin 4.0 (3.5-5.0) g/dL Urine Color Red Urine Appearance Bloody (Clear) Disposition Clinical Impression: Hematuria, UTI (urinary tract infection) Disposition: HOME SELF-CARE Condition: Stable Instructions (If sedation given, give patient instructions): Urinary Tract Infection in Men (ED) Additional Instructions: Please return to the Emergency Department if symptoms worsen or any other concerns. Prescriptions: Cephalexin [Keflex] 500 mg PO Q8HR #21 cap Is patient prescribed a controlled substance at d/c from ED?: No Referrals: Leonard Bowser MD [Primary Care Provider] - 1-2 days Dorian Castro MD [STAFF PHYSICIAN] - 1-2 days Time of Disposition: 07:33
[2022-03-03 06:55] LABS: Basophils # (A) 0.1 k/uL (0-0.2); Basophils % (A) 1 %; Eosinophils # (A) 0.1 k/uL (0-0.7); Eosinophils % (A) 2 %; HCT 39.3 % (39.0-53.0); Lymphocytes # (A) 0.9 k/uL (1.0-4.8); Lymphocytes % (A) 12 %; MCH 29.9 pg (25.0-35.0); MCHC 33.1 g/dL (31.0-37.0); MCV 90.2 fL (80.0-100.0); Mean Platelet Volume 7.8; Monocytes # (A) 0.7 k/uL (0-1.0); Monocytes % (A) 9 %; Neutrophils # (A) 5.6 k/uL (1.3-7.7); Neutrophils % (A) 74 %; Platelet Count 170 k/uL (150-450); RBC 4.36 m/uL (4.30-5.90); RDW 15.3 % (11.5-15.5); WBC 7.6 k/uL (3.8-10.6)
[2022-03-03 07:10] LABS: Calcium 9.7 mg/dL (8.4-10.2); Total Bilirubin 1.2 mg/dL (0.2-1.3); Total Protein 7.2 g/dL (6.3-8.2)
[2022-03-03 07:19] LABS: Appearance,Urine Bloody (Clear)
[2022-03-03 07:20] LABS: Color,Urine Red
[2022-03-03] MEDS ORDERED: cefTRIAXone IN SWFI 1,000 MG/10 ML SYRINGE IVP STA (07:31)
[2022-03-03 08:04] VITALS: BP 125/84; PULSE 78
== END 2022-03-03 08:03 | disposition home or self-care (01) ==
LOC: EC 04:03
DX: R31.9 Hematuria, unspecified (principal); N39.0 Urinary tract infection, site not specified; K21.9 Gastro-esophageal reflux disease without esophagitis; Z79.899 Other long term (current) drug therapy; Z79.1 Long term (current) use of non-steroidal anti-inflammatories (NSAID); E07.9 Disorder of thyroid, unspecified; I10 Essential (primary) hypertension
CPT/HCPCS: 36415; 80053; 85025; 99283; 96374; 96375; 96361; J0696; J1885

== ENCOUNTER → 2022-04-15 | Outpatient (CLI) | payer MEDICARE ==
[2022-04-15 09:55] VITALS: BP 150/82; PULSE 54; RESP 16; TEMP 98.2
== END ==
LOC: PROCWHC3 09:34
PROVIDERS: ATTEND Internal Medicine Hematology & Oncology
DX: C61 Malignant neoplasm of prostate (principal); Z88.6 Allergy status to analgesic agent; Z88.5 Allergy status to narcotic agent; Z88.1 Allergy status to other antibiotic agents
CPT/HCPCS: 96402; J9217

== ENCOUNTER 2022-04-19 12:02 | Day surgery (SDC) | payer MEDICARE ==
[2022-04-15 11:18] VITALS: BMI 31.0
--- NOTE | 2022-04-19 07:09 | P.GSHP ---
History of Present Illness H&P Date: 04/19/22 Chief Complaint: Hematuria The patient is an 86-year-old white male with a history of metastatic prostate cancer, treated with radiation therapy. He is followed by Dr. Singletary and continues to be treated with androgen deprivation therapy. He underwent cystoscopy, evacuation of clot, and fulguration of bleeder in January 2019, prior to receiving radiation therapy. He has recently experienced gross hematuria. Cystoscopy has shown an 8 mm bladder calculus. He now comes for cystolithotripsy. He undergoes CT scan imaging every 3 months. 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 No tobacco use. No experience. No extensive travel. Smoking Status: Never smoker Past Alcohol Use History: Rare Past Drug Use History: None Reported - Past Family History Mother Family Medical History: Cancer Additional Family Medical History / Comment(s): COLON Medications and Allergies Home Medications Medication Instructions Recorded Confirmed Type Levothyroxine Sodium [Synthroid] 100 mcg PO DAILY@0600 01/09/18 04/15/22 History Pantoprazole Sodium [Protonix] 40 mg PO DAILY@0600 01/09/18 04/15/22 History Tamsulosin HCl [Flomax] 0.4 mg PO HS 01/09/18 04/15/22 History Cholecalciferol [Vitamin D3 (25 1,000 unit PO DAILY 12/02/18 04/15/22 History Mcg = 1000 Iu)] Apixaban [Eliquis] 2.5 mg PO BID 04/08/21 04/15/22 History Furosemide [Lasix] 20 mg PO DAILY 04/08/21 04/15/22 History Metoprolol Succinate (ER) [Toprol 50 mg PO QAM 04/08/21 04/15/22 History XL] lisinopriL [Prinivil] 40 mg PO DAILY 07/13/21 04/15/22 History Aspirin EC [Ecotrin Low Dose] 81 mg PO DAILY 03/03/22 04/15/22 History Atorvastatin [Lipitor] 20 mg PO HS 03/03/22 04/15/22 History Clobetasol Propionate [Temovate 1 applic TOPICAL BID 03/03/22 04/15/22 History 0.05% Cream] Folic Acid 0.4 mg PO DAILY 03/03/22 04/15/22 History Ketorolac 0.5% Ophth Soln [Acular 1 drops RIGHT EYE QID 03/03/22 04/15/22 History 0.5%] Multivitamins, Thera [Multivitamin 1 tab PO DAILY 03/03/22 04/15/22 History (formulary)] Prednisolone Acetate/Pf 1 drop RIGHT EYE QID 03/03/22 04/15/22 History [Prednisolone Acet 1% Eye Drop] Leuprolide Acetate [Lupron Depot 3.75 mg IM DIRECTED 04/15/22 04/15/22 History (Lupaneta)] Allergies Allergy/AdvReac Type Severity Reaction Status Date / Time No Known Allergies Allergy Verified 03/03/22 07:31 Surgical - Exam - General well developed, well nourished, no distress - Respiratory normal respiratory effort - Abdomen Abdomen: soft, non tender, no guarding, no rigid, no rebound - Genitourinary normal penis with no external lesions, testicles non-tender - Psychiatric oriented to time, oriented to person, oriented to place, speech is normal, memory intact Assessment and Plan (1) Calculus in bladder Status: Acute Code(s): N21.0 - CALCULUS IN BLADDER SNOMED Code(s): 72738259 Plan: Cystoscopy with cystolithotripsy. The procedure has been reviewed in detail with the patient, who has been made aware of potential risks, which include anesthesia, bleeding, infection, and bladder injury.
[~2022-04-19 12:02] MED LIST changes: +DEXAMETHASONE SOD PHOSPHATE 4 MG/ML 1 ML VIAL IV ONE; +LACTATED RINGERS 1,000 ML IV SCH; -LEUPROLIDE ACETATE 22.5 MG SYRG KIT IM NR; +ONDANSETRON 4 MG/2 ML VIAL IVP ONE; +ONDANSETRON 4 MG/2 ML VIAL IVP PRN; +fentaNYL (PF) 50 MCG/ML 2 ML AMP IV PRN
[2022-04-19] MEDS ORDERED: PROPOFOL 10 MG/ML 20 ML VIAL IV ONE (14:04)
[2022-04-19] MEDS ORDERED: LIDOCAINE 2% INJ 20 MG/ML (2 ML VIAL) ONE (14:04)
[2022-04-19] MEDS ORDERED: fentaNYL (PF) 50 MCG/ML 2 ML AMP ONE (14:04)
--- NOTE | 2022-04-19 14:52 | P.OP ---
Date of Procedure: 04/19/22 Preoperative Diagnosis: Bladder calculus Postoperative Diagnosis: Same Procedure(s) Performed: Cystoscopy with cystolithotripsy Anesthesia: LIDIA Surgeon: Dorian Castro Estimated Blood Loss (ml): 0 IV fluids (ml): 600 Pathology: other (Calculus fragments, some for chemical analysis) Condition: stable Disposition: PACU Indications for Procedure: The patient is an 86-year-old white male with a history of metastatic prostate cancer, treated with radiation therapy. He is followed by Dr. Singletary and continues to be treated with androgen deprivation therapy. He underwent cystoscopy, evacuation of clot, and fulguration of bleeder in January 2019, prior to receiving radiation therapy. He has recently experienced gross hematuria. Cystoscopy has shown an 8 mm bladder calculus. He now comes for cystolithotripsy. He undergoes CT scan imaging every 3 months. Operative Findings: 8 mm bladder calculus, fragmented and removed completely. Description of Procedure: The patient was taken to the operating room and placed in the dorsal lithotomy position, with legs supported in Frankie stirrups. The external genitalia was prepped and draped sterilely. The 30 lens was used to introduce the 17-Kitt[place] Pedro cystoscopic sheath through the urethra and into the bladder under direct vision. The urethra appeared normal. The prostate showed evidence of lateral lobe enlargement consistent with the patient's age. The prostatic urethral mucosa showed changes consistent with prior radiation therapy. The bladder was examined in its entirety. The ureteral orifices appeared normal. A total of 1 calculi was seen, measuring approximately 8 mm in size. No tumors were seen. No diverticuli were seen. 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 There was no active bleeding. Using the 365 micron Holmium laser probe, lithotripsy was performed. Lithotripsy was continued until all calculus fragments could be removed through the cystoscope. Once this was completed, the bladder was inspected. There was no active bleeding, and no evidence of bladder perforation. The bladder was emptied and the cystoscope removed. The patient tolerated the procedure well was taken to the recovery room in stable condition.
[2022-04-19 15:02] VITALS: TEMP 97
[2022-04-19 17:01] VITALS: BP 160/73; PULSE 54; RESP 18
== END 2022-04-19 17:17 | disposition home or self-care (01) ==
LOC: OR 12:02
PROVIDERS: ATTEND Urology
DX: N21.0 Calculus in bladder (principal); R31.9 Hematuria, unspecified; Z85.46 Personal history of malignant neoplasm of prostate; Z92.3 Personal history of irradiation; I48.92 Unspecified atrial flutter; K21.9 Gastro-esophageal reflux disease without esophagitis; E78.5 Hyperlipidemia, unspecified; I10 Essential (primary) hypertension; E07.9 Disorder of thyroid, unspecified; Z85.05 Personal history of malignant neoplasm of liver; Z85.828 Personal history of other malignant neoplasm of skin; Z86.19 Personal history of other infectious and parasitic diseases; Z98.890 Other specified postprocedural states; Z96.60 Presence of unspecified orthopedic joint implant; Z98.42 Cataract extraction status, left eye; Z98.41 Cataract extraction status, right eye; Z80.0 Family history of malignant neoplasm of digestive organs; Z79.01 Long term (current) use of anticoagulants; Z79.82 Long term (current) use of aspirin; Z79.890 Hormone replacement therapy; Z79.899 Other long term (current) drug therapy
CPT/HCPCS: 82365; 52317; J1100; J0690; J2405; J3010; J2704; J2001

== ENCOUNTER → 2022-05-25 | Outpatient (CLI) | payer MEDICARE | END | disposition home or self-care (01) | LOC: LABWHC1 13:29 | PROVIDERS: ATTEND Radiology Radiation Oncology | DX: Z08 Encounter for follow-up examination after completed treatment for malignant neoplasm (principal); C61 Malignant neoplasm of prostate; C77.5 Secondary and unspecified malignant neoplasm of intrapelvic lymph nodes; Z85.46 Personal history of malignant neoplasm of prostate; Z92.3 Personal history of irradiation | CPT/HCPCS: 36415; 84153 ==

== ENCOUNTER → 2022-10-17 | Outpatient (CLI) | payer MEDICARE ==
[~2022-10-17] MED LIST changes: -DEXAMETHASONE SOD PHOSPHATE 4 MG/ML 1 ML VIAL IV ONE; -LACTATED RINGERS 1,000 ML IV SCH; +LEUPROLIDE ACETATE 22.5 MG SYRG KIT IM NR; -ONDANSETRON 4 MG/2 ML VIAL IVP ONE; -ONDANSETRON 4 MG/2 ML VIAL IVP PRN; -fentaNYL (PF) 50 MCG/ML 2 ML AMP IV PRN
[2022-10-17 10:04] VITALS: BP 146/78; PULSE 80; RESP 16; TEMP 98.3
== END | disposition home or self-care (01) ==
LOC: PROCWHC3 09:48
PROVIDERS: ATTEND Internal Medicine Hematology & Oncology
DX: C61 Malignant neoplasm of prostate (principal)
CPT/HCPCS: 96402; J9217

== ENCOUNTER 2023-03-21 11:11 | Emergency (ER) | payer MEDICARE ==
--- NOTE | 2023-03-21 11:14 | ED ---
General Adult HPI - General Stated complaint: urogenital Time Seen by Provider: 03/21/23 11:12 Source: RN notes reviewed - History of Present Illness Initial comments: 87-year-old male with a past medical history significant for hepatic carcinoma, prostate cancer presents to the emergency department with a chief complaint of urinary retension 6 days. Patient reports that he attempted to self catheterize last night for which he then noted blood clots and blood in his urine. Denies any fevers or chills, chest pain, shortness of breath, , nausea, vomiting, abdominal pain, flank pain. Patient sees Dr. Castro and is unable to see him until Monday. - Related Data Home Medications Medication Instructions Recorded Confirmed Levothyroxine Sodium [Synthroid] 100 mcg PO DAILY@0600 01/09/18 03/21/23 Pantoprazole Sodium [Protonix] 40 mg PO DAILY 01/09/18 03/21/23 Tamsulosin HCl [Flomax] 0.4 mg PO HS 01/09/18 03/21/23 Apixaban [Eliquis] 2.5 mg PO BID 04/08/21 03/21/23 Furosemide [Lasix] 20 mg PO DAILY 04/08/21 03/21/23 Metoprolol Succinate (ER) [Toprol 50 mg PO DAILY 04/08/21 03/21/23 XL] lisinopriL [Prinivil] 40 mg PO DAILY 07/13/21 03/21/23 Atorvastatin [Lipitor] 20 mg PO HS 03/03/22 03/21/23 Clobetasol Propionate [Temovate 1 applic TOPICAL BID 03/03/22 03/21/23 0.05% Cream] Cholecalciferol [Vitamin D3 (25 25 mcg PO DAILY 03/21/23 03/21/23 Mcg = 1000 Iu)] Dorzolamide/Timolol/Pf [Cosopt Pf 1 drop RIGHT EYE HS 03/21/23 03/21/23 2%/0.5% Ophth Droperette] Allergies Allergy/AdvReac Type Severity Reaction Status Date / Time No Known Allergies Allergy Verified 03/21/23 15:18 Review of Systems ROS Statement: Those systems with pertinent positive or pertinent negative responses have been documented in the HPI. ROS Other: All systems not noted in ROS Statement are negative. 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 Date of last positivie culture/infection: 12/19/18 MDRO Source:: Urine-VRE Past Surgical History: Adenoidectomy, Back Surgery, Hernia Repair, Joint Replacement, Prostate Surgery, Tonsillectomy Additional Past Surgical History / Comment(s): PARATHYROID SX, ESOPHAGEAL SX FOR ACHALASIA,VARICOSE VEIN SX,BILAT CATARAT SX, spinal abscess drainage, Past Anesthesia/Blood Transfusion Reactions: No Reported Reaction Smoking Status: Never smoker - Past Family History Mother Family Medical History: Cancer Additional Family Medical History / Comment(s): COLON General Exam - General Exam Comments Initial Comments: Visual Physical Exam Vital signs reviewed General: Well-appearing, nontoxic, no acute distress. Head: Normocephalic, atraumatic Eyes: PERRLA, EOMI ENT: Airway patent Chest: Nonlabored breathing Skin: No visual rash, normal skin tone Neuro: Alert and oriented 3 Musculoskeletal: No gross abnormalities General: Alert, in no acute distress Head: atraumatic normocephalic. Eyes PERRL, EOMI intact, mucous membranes moist Respiratory: Lungs clear to auscultation bilaterally Cardiovascular: Heart rate regular rate and rhythm Abdominal: Soft without guarding or rebound, no tenderness Extremities: Normal inspection with full range of motion and normal capillary refill Neuroogic: alert and oriented 3, CN II-XII intact, able to ambulate with steady gait Skin: warm dry and intact, appears jaundiced with scleral icterus Course Vital Signs 03/21/23 03/21/23 03/21/23 11:15 18:48 19:30 Temperature 98.2 F 98.2 F 98.2 F Pulse Rate 86 64 64 Respiratory 20 16 18 Rate Blood Pressure 123/80 115/71 118/74 O2 Sat by Pulse 97 98 96 Oximetry - Reevaluation(s) Reevaluation #1: 03/21/23 14:00 patient reevaluated and updated on results. Patient most recent lab work was performed at [facility] 02/19/2023 these results were reviewed. There is marked elevation in hepatic function tests. She'll lab work and imaging were ordered. Patient denies any abdominal pain at this time. Reevaluation #2: 03/21/23 16:06 Patient reevaluated. Ultrasound at bedside to complete ultrasound of bladder. Reevaluation #3: 03/21/23 18:08 Case discussed with YRN Malcolm who agrees and accepts the patient for transfer Reevaluation #4: 03/21/23 18:[address] Cabral wage hand who agrees and accepts the patient for transfer Reevaluation #5: 03/21/23 19:27 Patient reevaluated. Patient is requesting to leave AGAINST MEDICAL ADVICE. Benefits and risks were discussed at length. Patient verbalized understanding. Medical Decision Making - Medical Decision Making Was pt. sent in by a medical professional or institution (KEVIN Chamberlain, TRAINING GENERALIST, urgent care, hospital, or intermediate...) When possible be specific @ -[No] Did you speak to anyone other than the patient for history (EMS, parent, family, police, friend...)? What history was obtained from this source @ -[No] Did you review nursing and triage notes (agree or disagree)? Why? @ -[I reviewed and agree with nursing and triage notes] Were old charts reviewed (outside hosp., previous admission, EMS record, old EKG, old radiological studies, urgent care reports/EKG's, intermediate records)? Report findings @ -[No old charts were reviewed] Differential Diagnosis (chest pain, altered mental status, abdominal pain women, abdominal pain men, vaginal bleeding, weakness, fever, dyspnea, syncope, headache, dizziness, GI bleed, back pain, seizure, CVA, palpatations, mental health, musculoskeletal)? @ -[not applicable] EKG interpreted by me (3pts min.). @ -[As above] X-rays interpreted by me (1pt min.). @ -[None done] CT interpreted by me (1pt min.). @ -[None done] U/S interpreted by me (1pt. min.). @ -[None done] What testing was considered but not performed or refused? (CT, X-rays, U/S, labs)? Why? @ -[None] What meds were considered but not given or refused? Why? @ -[None] Did you discuss the management of the patient with other professionals (professionals i.e. , PA, TRAINING GENERALIST, lab, RT, psych nurse, social work case manager, batting machine operator insulation, teacher, lodge officer, rn case management)? Give summary @ -[No] Was smoking cessation discussed for >3mins.? @ -[No] Was critical care preformed (if so, how long)? @ -[No] Were there social determinants of health that impacted care today? How? (Homelessness, low income, unemployed, alcoholism, drug addiction, transportation, low edu. Level, literacy, decrease access to med. care, snf, rehab)? @ -[No] Was there de-escalation of care discussed even if they declined (Discuss DNR or withdrawal of care, Hospice)? DNR status @ -[No] What co-morbidities impacted this encounter? (DM, HTN, Smoking, COPD, CAD, Cancer, CVA, ARF, Chemo, Hep., AIDS, mental health diagnosis, sleep apnea, morbid obesity)? @ -[None] Was patient admitted / discharged? Hospital course, mention meds given and route, prescriptions, significant lab abnormalities, going to OR and other pertinent info. @ -AGAINST MEDICAL ADVICE This is a 87-year-old male who presents the emergency department with urinary retention. Patient had a thorough history and physical exam performed. Physical exam is essentially unremarkable heart rate regular rate and rhythm, lungs clear to auscultation bilaterally abdomen is soft and nontender. Patient able to ambulate with a steady gait. He shouldn't appears jaundiced with scleral icterus. Patient lab work and imaging performed which revealed: WBC 6.2, hemoglobin 13.6 INR 1.1 sodium 140, potassium 4.3 BUNs 23, creatinine 1.2 to total bilirubin 9.8 conjugated bilirubin 3.6, unconjugated bilirubin 2.0 felt a bilirubin 4.2 AST 211, a LT176 alk phos 568 Urinalysis reveals greater than 182 wbc's Ultrasound of gallbladder reveals intrahepatic biliary dilatation, there is small bile sludging gravel distended gallbladder but no wall thickening no Ryder sign present no evidence of acute cholecystitis Patient had a Sherwood catheter placed without difficulty, as he was initially being evaluated for urinary retention and hematuria. while in the emergency department. I discussed the results in detail with the patient verbalized understanding and all questions were addressed. It was my intention to transfer the patient to [facility] to be evaluated by GI physician Dr. Posada. Initially the patient was agreeable with the plan for transfer however, shortly after notified provider that he would like to leave AGAINST MEDICAL ADVICE. Risks including of leaving AGAINST MEDICAL ADVICE were discussed at length with the patient, who verbalized understanding. Case discussed with JEFF Walker who agrees with plan of care Undiagnosed new problem with uncertain prognosis? @ -[No] Drug Therapy requiring intensive monitoring for toxicity (Heparin, Nitro, Insulin, Cardizem)? @ -[No] Were any procedures done? @ -[No] Diagnosis/symptom? @ -urinary retention - jaundice - elevated liver function tests - hx of hepatic carcinoma - hx of prostate cancer Acute, or Chronic, or Acute on Chronic? @ -[default] Uncomplicated (without systemic symptoms) or Complicated (systemic symptoms)? @ -[default] Side effects of treatment? @ -[No] Exacerbation, Progression, or Severe Exacerbation? @ -[No] Poses a threat to life or bodily function? How? (Chest pain, USA, ME, pneumonia, PE, COPD, DKA, ARF, appy, cholecystitis, CVA, Diverticulitis, Homicidal, Suicidal, threat to staff... and all critical care pts) @ -[No] - Lab Data Result diagrams: 03/21/23 13:08 03/21/23 13:08 Lab Results 03/21/23 03/21/23 03/21/23 Range/Units 12:57 13:08 13:08 WBC 6.2 (3.8-10.6) k/uL RBC 4.42 (4.30-5.90) m/uL Hgb 13.6 (13.0-17.5) gm/dL Hct 41.4 (39.0-53.0) % MCV 93.6 (80.0-100.0) fL MCH 30.8 (25.0-35.0) pg MCHC 32.9 (31.0-37.0) g/dL RDW 15.9 H (11.5-15.5) % Plt Count 242 (150-450) k/uL MPV 8.2 Neutrophils % 76 % Lymphocytes % 12 % Monocytes % 7 % Eosinophils % 2 % Basophils % 1 % Neutrophils # 4.7 (1.3-7.7) k/uL Lymphocytes # 0.8 L (1.0-4.8) k/uL Monocytes # 0.4 (0-1.0) k/uL Eosinophils # 0.1 (0-0.7) k/uL Basophils # 0.0 (0-0.2) k/uL PT 11.8 (9.0-12.0) sec INR 1.1 (<1.2) APTT 27.6 (22.0-30.0) sec Sodium (137-145) mmol/L Potassium (3.5-5.1) mmol/L Chloride (98-107) mmol/L Carbon Dioxide (22-30) mmol/L Anion Gap mmol/L BUN (9-20) mg/dL Creatinine (0.66-1.25) mg/dL Est GFR (CKD-EPI)AfAm (>60 ml/min/1.73 sqM) Est GFR (CKD-EPI)NonAf (>60 ml/min/1.73 sqM) Glucose (74-99) mg/dL Calcium (8.4-10.2) mg/dL Total Bilirubin (0.2-1.3) mg/dL Conjugated Bilirubin (0.0-0.3) mg/dL Unconjugated Bilirubin (0.0-1.1) mg/dL Delta Bilirubin (0.0-0.2) mg/dL AST (17-59) U/L ALT (4-49) U/L Alkaline Phosphatase (38-126) U/L Total Protein (6.3-8.2) g/dL Albumin (3.5-5.0) g/dL Urine Appearance Bloody (Clear) Urine RBC >182 H (0-5) /hpf Urine WBC >182 H (0-5) /hpf 03/21/23 03/21/23 Range/Units 13:08 15:12 WBC (3.8-10.6) k/uL RBC (4.30-5.90) m/uL Hgb (13.0-17.5) gm/dL Hct (39.0-53.0) % MCV (80.0-100.0) fL MCH (25.0-35.0) pg MCHC (31.0-37.0) g/dL RDW (11.5-15.5) % Plt Count (150-450) k/uL MPV Neutrophils % % Lymphocytes % % Monocytes % % Eosinophils % % Basophils % % Neutrophils # (1.3-7.7) k/uL Lymphocytes # (1.0-4.8) k/uL Monocytes # (0-1.0) k/uL Eosinophils # (0-0.7) k/uL Basophils # (0-0.2) k/uL PT (9.0-12.0) sec INR (<1.2) APTT (22.0-30.0) sec Sodium 140 (137-145) mmol/L Potassium 4.3 (3.5-5.1) mmol/L Chloride 106 (98-107) mmol/L Carbon Dioxide 24 (22-30) mmol/L Anion Gap 10 mmol/L BUN 23 H (9-20) mg/dL Creatinine 1.22 (0.66-1.25) mg/dL Est GFR (CKD-EPI)AfAm 62 (>60 ml/min/1.73 sqM) Est GFR (CKD-EPI)NonAf 53 (>60 ml/min/1.73 sqM) Glucose 139 H (74-99) mg/dL Calcium 9.2 (8.4-10.2) mg/dL Total Bilirubin 10.8 H 9.8 H (0.2-1.3) mg/dL Conjugated Bilirubin 3.6 H (0.0-0.3) mg/dL Unconjugated Bilirubin 2.0 H (0.0-1.1) mg/dL Delta Bilirubin 4.2 H (0.0-0.2) mg/dL AST 247 H 211 H (17-59) U/L ALT 186 H 176 H (4-49) U/L Alkaline Phosphatase 646 H 568 H (38-126) U/L Total Protein 7.2 6.5 (6.3-8.2) g/dL Albumin 3.3 L 3.0 L (3.5-5.0) g/dL Urine Appearance (Clear) Urine RBC (0-5) /hpf Urine WBC (0-5) /hpf Disposition Clinical Impression: Hepatocellular carcinoma, Hematuria, Urinary retention, Jaundice, Prostate cancer Disposition: Left Against Medical Advice Condition: Undetermined Is patient prescribed a controlled substance at d/c from ED?: No Referrals: Leonard Bowser MD [Primary Care Provider] - 1-2 days Time of Disposition: 19:12
[2023-03-21 11:17] VITALS: TEMP 98.2
[2023-03-21 13:16] LABS: Basophils % (A) 1 %; Eosinophils # (A) 0.1 k/uL (0-0.7); Eosinophils % (A) 2 %; HCT 41.4 % (39.0-53.0); HGB 13.6 gm/dL (13.0-17.5); Lymphocytes # (A) 0.8 k/uL (1.0-4.8); Lymphocytes % (A) 12 %; MCH 30.8 pg (25.0-35.0); MCHC 32.9 g/dL (31.0-37.0); MCV 93.6 fL (80.0-100.0); Mean Platelet Volume 8.2; Monocytes # (A) 0.4 k/uL (0-1.0); Monocytes % (A) 7 %; Neutrophils # (A) 4.7 k/uL (1.3-7.7); Neutrophils % (A) 76 %; Platelet Count 242 k/uL (150-450); RBC 4.42 m/uL (4.30-5.90); RDW 15.9 % (11.5-15.5); WBC 6.2 k/uL (3.8-10.6)
[2023-03-21 13:19] LABS: RBC,Urine >182 /hpf (0-5); WBC,Urine >182 /hpf (0-5)
[2023-03-21 13:20] LABS: Appearance,Urine Bloody (Clear)
[2023-03-21 13:26] LABS: INR 1.1 (<1.2); Partial Thromboplastin Time 27.6 sec (22.0-30.0); Prothrombin Time 11.8 sec (9.0-12.0)
[2023-03-21 13:28] LABS: Albumin 3.3 g/dL (3.5-5.0); Calcium 9.2 mg/dL (8.4-10.2); Potassium 4.3 mmol/L (3.5-5.1); Total Bilirubin 10.8 mg/dL (0.2-1.3); Total Protein 7.2 g/dL (6.3-8.2)
[2023-03-21 15:35] LABS: Bilirubin, Conjugated 3.6 mg/dL (0.0-0.3); Bilirubin, Delta 4.2 mg/dL (0.0-0.2); Total Bilirubin 9.8 mg/dL (0.2-1.3); Total Protein 6.5 g/dL (6.3-8.2)
--- NOTE | 2023-03-21 17:10 | US ---
EXAMINATION TYPE: US gallbladder DATE OF EXAM: 03/21/2023 COMPARISON: NONE CLINICAL INDICATION: Male, 87 years old with history of elevated LFT; Abnormal labs. No pain. Jaundi ce. TECHNIQUE: Multiple sonographic images of the right upper quadrant are obtained. FINDINGS: EXAM MEASUREMENTS: Liver Length: 16.4 cm Gallbladder Wall: 0.2 cm CBD: 0.8 cm Right Kidney: 11.7 x 5.1 x 4.8 cm Pancreas: Main pancreatic duct = 1.7 mm. Two anechoic lesions are seen. One in the body measuring 1 .6 x 1.2 x 1.1 cm. The second in the pancreatic tail measuring 1.1 x 1.0 x 0.9 cm. Liver: Intrahepatic biliary dilatation. Echogenic and heterogeneous appearance. Otherwise, no focal lesion seen. Gallbladder: Mildly hydropic with mobile sludge and gravel. No wall thickening. Evidence for sonographic Ryder's sign: neg CBD: Mildly dilated. Right Kidney: No hydronephrosis or masses seen IMPRESSION: 1. Intrahepatic biliary ductal dilatation. The bile duct is also mildly dilated though acceptable giv en patient's age. Given the hydropic gallbladder change, correlate with alkaline phosphatase and bili henning levels to exclude biliary obstruction such as from choledocholithiasis. 2. Mobile sludge and gravel in the distended gallbladder. No wall thickening or Ryder's sign to zhang rly indicate acute cholecystitis at this time.
[2023-03-21 18:49] VITALS: PULSE 64
[2023-03-21 19:31] VITALS: BP 118/74; RESP 18
== END 2023-03-21 19:31 | disposition left against medical advice (07) ==
LOC: EC 11:11
DX: C22.0 Liver cell carcinoma (principal); R33.9 Retention of urine, unspecified; R31.9 Hematuria, unspecified; R17 Unspecified jaundice; C79.82 Secondary malignant neoplasm of genital organs; C80.1 Malignant (primary) neoplasm, unspecified; K21.9 Gastro-esophageal reflux disease without esophagitis; E78.5 Hyperlipidemia, unspecified; I10 Essential (primary) hypertension; E07.9 Disorder of thyroid, unspecified; Z79.890 Hormone replacement therapy; Z79.899 Other long term (current) drug therapy; Z53.29 Procedure and treatment not carried out because of patient's decision for other reasons
CPT/HCPCS: 36415; 51798; 76705; 80053; 80076; 81001; 85025; 85610; 85730; 99284

== ENCOUNTER 2023-08-02 06:40 | Emergency (ER) | payer MEDICARE ==
[2023-08-02 06:49] VITALS: TEMP 97
[2023-08-02] MEDS ORDERED: SODIUM CHLORIDE 0.9% 1,000 ML IV STA ×3 (06:55→07:40)
--- NOTE | 2023-08-02 06:59 | ED ---
General Adult HPI - General Source: EMS Mode of arrival: EMS <Johan Barajas - Last Filed: 08/02/23 06:56> <Dmitri Shah - Last Filed: 08/02/23 15:57> - General Chief complaint: Fall Stated complaint: Fall Time Seen by Provider: 08/02/23 06:49 - History of Present Illness Initial comments: Dictation was produced using [employer] dictation software. please excuse any grammatical, word or spelling errors. Chief Complaint: 87-year-old male presents via EMS for fall History of Present Illness: Is 87-year-old male history of present illness obtained from EMS along with Loreta at the bedside. Patient allegedly has not been eating or drinking for the last 3-4 days. This morning he rolled out of bed and fell to the ground. Patient states he has no pain. EMS states that his blood pressure was low with systolic measuring 70 over 40s. Given 500 mL bolus. EKG that showed A. fib with RVR. Patient has a history of A. fib. He takes anticoagulation medications. at the bedside states the patient has been jaundice for the last 3-4 days. His history of biliary stent. His history of prostate and liver cancer and mass in the gallbladder/liver area. Most of his cares performed at [facility] along with [facility] and [facility]. The ROS documented in this emergency department record has been reviewed and confirmed by me. Those systems with pertinent positive or negative responses have been documented in the HPI. All other systems are other negative and/or noncontributory. (Johan Barajas) - Related Data Home Medications Medication Instructions Recorded Confirmed Levothyroxine Sodium [Synthroid] 100 mcg PO DAILY 01/09/18 08/02/23 Pantoprazole Sodium [Protonix] 40 mg PO DAILY 01/09/18 08/02/23 Tamsulosin HCl [Flomax] 0.4 mg PO HS 01/09/18 08/02/23 Apixaban [Eliquis] 2.5 mg PO BID 04/08/21 08/02/23 Furosemide [Lasix] 20 mg PO DAILY 04/08/21 08/02/23 Metoprolol Succinate (ER) [Toprol 50 mg PO DAILY 04/08/21 08/02/23 XL] lisinopriL [Prinivil] 40 mg PO DAILY 07/13/21 08/02/23 Atorvastatin [Lipitor] 20 mg PO HS 03/03/22 08/02/23 Clobetasol Propionate [Temovate 1 applic TOPICAL BID 03/03/22 08/02/23 0.05% Cream] Cholecalciferol [Vitamin D3 (25 25 mcg PO DAILY 03/21/23 08/02/23 Mcg = 1000 Iu)] Dorzolamide/Timolol/Pf [Cosopt Pf 1 drop RIGHT EYE HS 03/21/23 08/02/23 2%/0.5% Ophth Droperette] Allergies Allergy/AdvReac Type Severity Reaction Status Date / Time No Known Allergies Allergy Verified 08/02/23 09:03 Review of Systems ROS Other: All systems not noted in ROS Statement are negative. <Johan Barajas - Last Filed: 08/02/23 06:56> ROS Other: All systems not noted in ROS Statement are negative. <Dmitri Shah - Last Filed: 08/02/23 15:57> ROS Statement: Those systems with pertinent positive or pertinent negative responses have been documented in the HPI. 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 Date of last positivie culture/infection: 12/19/18 MDRO Source:: Urine-VRE Past Surgical History: Adenoidectomy, Back Surgery, Hernia Repair, Joint Replacement, Prostate Surgery, Tonsillectomy Additional Past Surgical History / Comment(s): PARATHYROID SX, ESOPHAGEAL SX FOR ACHALASIA,VARICOSE VEIN SX,BILAT CATARAT SX, spinal abscess drainage, Past Anesthesia/Blood Transfusion Reactions: No Reported Reaction Past Psychological History: No Psychological Hx Reported Smoking Status: Never smoker Past Alcohol Use History: None Reported Past Drug Use History: None Reported - Past Family History Mother Family Medical History: Cancer Additional Family Medical History / Comment(s): COLON <Johan Barajas - Last Filed: 08/02/23 06:56> General Exam <Johan Barajas - Last Filed: 08/02/23 06:56> - General Exam Comments Initial Comments: PHYSICAL EXAM: General Impression: Alert and oriented x3, not in acute distress HEENT: Normocephalic atraumatic, extra-ocular movements intact, pupils equal and reactive to light bilaterally, dry mucous membranes Cardiovascular: Heart regular rate and rhythm Chest: Able to complete full sentences, no retractions, no tachypnea Abdomen: abdomen soft, non-tender, non-distended, no organomegaly Musculoskeletal: Pulses present and equal in all extremities, no peripheral edema Motor: no focal deficits noted Neurological: CN II-XII grossly intact, no focal motor or sensory deficits noted Skin: Jaundiced Psych: Normal affect and mood (Johan Barajas) Course Vital Signs 08/02/23 08/02/23 08/02/23 06:45 07:50 09:15 Temperature 97.0 F L Pulse Rate 130 H 92 88 Respiratory 18 17 18 Rate Blood Pressure 78/47 86/50 90/60 O2 Sat by Pulse 98 99 100 Oximetry EKG Findings - EKG Comments: EKG Findings:: My EKG interpretation: Ventricular rate 123, A. fib with RVR, right bundle branch block QRS 162, Qtc 453. No CO prolongation, no QTC prolongation, no ST or T-wave changes noted. Overall, this EKG is unremarkable <Johan Barajas - Last Filed: 08/02/23 06:56> Procedures - Central Line Placement Left Femoral Consent Obtained: written consent Patient Placed on Monitor/Pulse Ox: Yes MD Prep: mask, gown, gloves Central Line Prep: Chlorhexidine scrub, sterile drapes applied Local Anesthesia Used: Lidocaine 1% Amount of Anesthesia Used (mls): 4 Ultrasound Used for Placement: Yes Central Line Lumen Inserted: triple Central Line Position: good blood return, all ports aspirated, flushed, capped, sutured in place with nylon Dressing Applied: Tegaderm Patient Tolerated Procedure: well Complications: none - Sepsis Sepsis Focused Exam #1 Time Sepsis Criteria Met: 07:33 Sepsis Focused Exam Date: 08/02/23 Sepsis Focused Exam Time: 09:56 Sepsis Focused Exam Complete: Yes Vital Signs & RN Notes Reviewed: Yes Capillary Refill: > 2 Seconds: Fingers, Toes Peripheral Pulses: Normal: Radial (R), Radial (L) Skin Color: Jaundice Respiratory Exam: normal lung sounds Cardiovascular Exam: regular rate, irregular rhythm <Dmitri Shah - Last Filed: 08/02/23 15:57> Medical Decision Making <JennJohan Wes - Last Filed: 08/02/23 06:56> - Lab Data Result diagrams: 08/02/23 07:07 08/02/23 07:07 - EKG Data -: EKG Interpreted by Me <Dmitri Shah - Last Filed: 08/02/23 15:57> - Medical Decision Making Was pt. sent in by a medical professional or institution (, PA, GROUP THERAPIST, urgent care, hospital, or [place] health care facility...) When possible be specific @ -No Did you speak to anyone other than the patient for history (EMS, parent, family, police, friend...)? What history was obtained from this source @ -See above Did you review nursing and triage notes (agree or disagree)? Why? @ -I reviewed and agree with nursing and triage notes Were old charts reviewed (outside hosp., previous admission, EMS record, old EKG, old radiological studies, urgent care reports/EKG's, [place] health care facility records)? Report findings @ -No old charts were reviewed Differential Diagnosis (chest pain, altered mental status, abdominal pain women, abdominal pain men, vaginal bleeding, musculoskeletal, weakness, fever, dyspnea, syncope, headache, dizziness, GI bleed, back pain, seizure, CVA, palpatations, mental health)? @ -Differential Weakness: Hypoglycemia, shock, sepsis, hyponatremia, anemia, infection, CT, ETOH, adverse medicine reaction, overdose, stroke, this is not meant to be an all-inclusive list. EKG interpreted by me (3pts min.). @ -See above X-rays interpreted by me (1pt min.). @ -Pending CT interpreted by me (1pt min.). @ -Pending U/S interpreted by me (1pt. min.). @ -None done What testing was considered but not performed or refused? (CT, X-rays, U/S, labs)? Why? @ -None What meds were considered but not given or refused? Why? @ -None Did you discuss the management of the patient with other professionals (professionals i.e. , PA, GROUP THERAPIST, lab, RT, psych nurse, family welfare social work professor, fig washer, teacher, president and chief executive officer, case repairer)? Give summary @ -No Was smoking cessation discussed for >3mins.? @ -No Was critical care preformed (if so, how long)? @ -No Were there social determinants of health that impacted care today? How? (Homelessness, low income, unemployed, alcoholism, drug addiction, transportation, low edu. Level, literacy, decrease access to med. care, fdc, rehab)? @ -No Was there de-escalation of care discussed even if they declined (Discuss DNR or withdrawal of care, Hospice)? DNR status @ -No What co-morbidities impacted this encounter? (DM, HTN, Smoking, COPD, CAD, Cancer, CVA, ARF, Chemo, Hep., AIDS, mental health diagnosis, sleep apnea, morbid obesity)? @ -None Was patient admitted / discharged? Hospital course, mention meds given and route, prescriptions, significant lab abnormalities, going to OR and other pertinent info. @ -87-year-old male with multiple comorbidities presents to the ER after he fell out of bed. Patient has been suffering from generalized weakness and poor appetite jaundice for the last 3-4 days. His extensive cancer history according to Loreta his at the bedside. Initial blood pressure 10 signs were abnormal with a heart rate of 1:30, blood pressure 7147. reports that his normal blood pressures around 110 systolic. Patient states that he feels weak. He is jaundice at the bedside he has no obvious signs of traumatic injury. Patient care signed out to Dr. Shah at 7:00 AM Undiagnosed new problem with uncertain prognosis? @ -No Drug Therapy requiring intensive monitoring for toxicity (Heparin, Nitro, Insulin, Cardizem)? @ -No Were any procedures done? @ -No Diagnosis/symptom? Acute, or Chronic, or Acute on Chronic? Uncomplicated (without systemic symptoms) or Complicated (systemic symptoms)? @ -fall, weakness, new onset jaundice Side effects of treatment? @ -No Exacerbation, Progression, or Severe Exacerbation? @ -No Poses a threat to life or bodily function? How? (Chest pain, USA, CT, pneumonia, PE, COPD, DKA, ARF, appy, cholecystitis, CVA, Diverticulitis, Homicidal, Suicidal, threat to staff... and all critical care pts) @ -yes (Johan Barajas) Patient signed out to me. Patient originally presented for rolling out of bed on blood thinners. Patient has no acute complaints from the trauma however has been feeling aggressively more weak over the last week or so. Patient has also noticed that he has been more jaundiced over the same period of time. Does have a history of this and required what they believe was biliary stenting at [facility] previously. Patient does have a history of prostate and liver cancer as well as a mass in the gallbladder and liver area. Also has a history of an aortic aneurysm repair. He currently denies any acute compla ints. States he hasn't had much of an appetite. Endorses intermittent abdominal pain but currently has none. Denies any injuries from the fall including denying back pain, pelvic pain, leg pain and arm pain. Denies any headache. Does not believe he hit his head. That she was asleep when this h appened and he awoke when he hit the ground. Denies any blurry vision or focal neurological deficits. Presented for further evaluation. Patient initially presented hypotensive and in A. fib with RVR. He does have a history of atrial fibrillation. Was given a fluid bolus here in the department and is improving. I ordered an additional fluid bolus. At bedside, patient currently is improving blood pressures with systolics in the mid 80s. He was originally in the low 70s on presentation. A. fib with RVR has resolved as well as heart rate is now around 100. Imaging is still pending at this time. Patient's laboratory studies are remarkable for mild leukocytosis of 10.7. Lactic acid is elevated to 3.9. Patient's bilirubins are also elevated with a total bilirubin of 9.9 and conjugated of 5.0. LFTs are minimally elevated to 136 and 78. Alk phos is also elevated to 449. Lipase is within normal limits. Based on these findings, the initial presentatio n of being hypotensive and p rogressive weakness and history of biliary obstruction, I cannot definitively rule out cholangitis at this time were infectious cause such as sepsis. Therefore patient met sepsis criteria, with concern for source being cholangitis, and 0733. Patient ordered a second fluid bolus immediately 30 mL p er KG fluid bolus requirements and started on maintenance fluids. Was started on broad-spectrum antibiotics vancomycin and Zosyn. We'll continue to monitor vital signs and any signs of improvement. He was in agreement with this plan. Patient's troponin is elevated but actually suspect this is secondary to his underlying comorbid process of either sepsis, worsening cholangitis, dehydration. We'll continue to monitor. No evidence of acute ischemia on EKG. Patient's imaging did finally return and revealed no evidence of traumatic injury. CT brain within normal limits. Gallbladder ultrasound showed no evidence of cholecystitis but were hypoechoic lesion seen on the pancreatic duct and was sludge as well as gallstones present. Patient's CT imaging showed that the biliary stent appeared in appropriate position but was unable to definitively tell if the stent was dilated or if there is any occlusion. Recommended further imaging and workup. Also shows the liver lesions as well as known pancreatic cystic lesions. On reevaluation following a total of 3 L fluid bolus on maintenance fluids currently, patient remains hypotensive with mean arterial pressures less than 65. Patient has already been on sepsis therapy. Patient meets criteria for septic shock. Patient was started on Levophed. Initially started peripherally and I did obtain consent and placed a left femoral central venous catheter. Patient Tolerated the procedure well. Please see procedure note for additional details. I discussed the results with the patient and his workup. Due to concern for his septic shock being from either UTIs the urine did return showing signs of white blood cells and leukocyte esterase versus possible ascending cholangitis considering his acute jaundice appearance and history of biliary stones and sludge, I do think it's most appropriate to transfer him back to where his speci alist see him, Dr. Catalan who sees him at [facility]. This is his GI doctor. He was in agreement this plan. I reached at [facility] and spoke with the medical ICU fellow Dr. Taylor who accepted the admission. Patient will be transferred in serious condition. He is responding well to low-dose norepinephrine, with maps greater than 65. We will continue management as it is. He was in agreement with this plan. He'll be transferred to [facility]. X-rays interpreted by me (1pt min.). @ -Chest x-ray and pelvic x-ray revealed no obvious evidence of acute traumatic injury. CT interpreted by me (1pt min.). @ -CT brain, C-spine reveals no evidence of acute traumatic injury or intracranial injury. CT abdomen and pelvis reveals a known hepatic lesion consistent with cancer, biliary stents appear in appropriate position but due to noncontrast CT difficult to detect for any dilation. Not obvious. Patient also has evidence of cystic lesions in the pancreas and trace pleural effusion present and cholelithiasis without evidence of cholecystitis. There is also a left liver lesion. U/S interpreted by me (1pt. min.). @ -Gallbladder ultrasound reveals no obvious evidence of cholecystitis. There is mild dilation of the pancreatic duct as well as hypoechoic lesions of the pancreas which are likely cystic lesion seen on CT imaging. Gallbladder sludge and gallstones present without any evidence of collateral wall thickening or cholecystitis. Did you discuss the management of the patient with other professionals (professionals i.e. DrRich, PA, GROUP THERAPIST, lab, RT, psych nurse, family welfare social work professor, fig washer, teacher, president and chief executive officer, case repairer)? Give summary @ -Discussed management with Dr. Taylor the ICU fellow at [facility] in [facility] who accepted the admission and transfer. Was in agreement with the plan. Was critical care preformed (if so, how long)? @ -Yes, 55min Were any procedures done? @ -Central Line placement Diagnosis/symptom? @ -Septic shock, suspect from ascending cholangitis and biliary obstruction vs. UTI Acute, or Chronic, or Acute on Chronic? @ -Acute Uncomplicated (without systemic symptoms) or Complicated (systemic symptoms)? @ -Complicated Side effects of treatment? @ -none. Exacerbation, Progression, or Severe Exacerbation] @ -no Poses a threat to life or bodily function? @ -Yes Diagnosis/symptom? @ -A. fib with RVR Acute, or Chronic, or Acute on Chronic? @ -Acute on chronic Uncomplicated (without systemic symptoms) or Complicated (systemic symptoms)? @ -Complicated Side effects of treatment? @ -none Exacerbation, Progression, or Severe Exacerbation] @ -no Poses a threat to life or bodily function? @ -Yes Diagnosis/symptom? @ -Elevated troponin Acute, or Chronic, or Acute on Chronic? @ -Acute Uncomplicated (without systemic symptoms) or Complicated (systemic symptoms)? @ -Uncomplicated Side effects of treatment? @ -none Exacerbation, Progression, or Severe Exacerbation] @ -no Poses a threat to life or bodily function? @ -no Diagnosis/symptom? @ -Hyperbilirubinemia and jaundice with history of biliary stent Acute, or Chronic, or Acute on Chronic? @ -Acute Uncomplicated (without systemic symptoms) or Complicated (systemic symptoms)? @ -Complicated Side effects of treatment? @ -none Exacerbation, Progression, or Severe Exacerbation] @ -no. Poses a threat to life or bodily function? @ -Possibly, yes (Dmitri Shah) - Lab Data Lab Results 08/02/23 08/02/23 08/02/23 Range/Units 06:50 07:07 07:07 WBC 10.7 H (3.8-10.6) k/uL RBC 4.08 L (4.30-5.90) m/uL Hgb 11.7 L (13.0-17.5) gm/dL Hct 36.2 L (39.0-53.0) % MCV 88.8 (80.0-100.0) fL MCH 28.7 (25.0-35.0) pg MCHC 32.3 (31.0-37.0) g/dL RDW 16.7 H (11.5-15.5) % Plt Count 117 L (150-450) k/uL MPV 8.4 Neutrophils % (Manual) 83 % Band Neuts % (Manual) 7 % Lymphocytes % (Manual) 5 % Monocytes % (Manual) 5 % Neutrophils # (Manual) 9.60 H (1.3-7.7) k/uL Lymphocytes # (Manual) 0.54 L (1.0-4.8) k/uL Monocytes # (Manual) 0.54 (0-1.0) k/uL Nucleated RBCs 0 (0-0) /100 WBC Manual Slide Review Performed Anisocytosis Slight PT 15.3 H (9.0-12.0) sec INR 1.5 H (<1.2) APTT 26.3 (22.0-30.0) sec Sodium (137-145) mmol/L Potassium (3.5-5.1) mmol/L Chloride (98-107) mmol/L Carbon Dioxide (22-30) mmol/L Anion Gap mmol/L BUN (9-20) mg/dL Creatinine (0.66-1.25) mg/dL Est GFR (CKD-EPI)AfAm (>60 ml/min/1.73 sqM) Est GFR (CKD-EPI)NonAf (>60 ml/min/1.73 sqM) Glucose (74-99) mg/dL Lactic Ac Sepsis Rflx Plasma Lactic Acid Zane (0.7-2.0) mmol/L Calcium (8.4-10.2) mg/dL Total Bilirubin (0.2-1.3) mg/dL Conjugated Bilirubin (0.0-0.3) mg/dL Unconjugated Bilirubin (0.0-1.1) mg/dL Delta Bilirubin (0.0-0.2) mg/dL AST (17-59) U/L ALT (4-49) U/L Alkaline Phosphatase (38-126) U/L Troponin I (0.000-0.034) ng/mL Total Protein (6.3-8.2) g/dL Albumin (3.5-5.0) g/dL Lipase (23-300) U/L Urine Color Urine Appearance (Clear) Urine pH (5.0-8.0) Ur Specific [place] (1.001-1.035) Urine Protein (Negative) Urine Glucose (UA) (Negative) Urine Ketones (Negative) Urine Blood (Negative) Urine Nitrite (Negative) Urine Bilirubin (Negative) Urine Urobilinogen (<2.0) mg/dL Ur Leukocyte Esterase (Negative) Urine RBC (0-5) /hpf Urine WBC (0-5) /hpf Urine WBC Clumps (None) /hpf Urine Bacteria (None) /hpf Hyaline Casts (0-2) /lpf Urine Mucus (None) /hpf Urine Opiates Screen (NotDetected) Ur Oxycodone Screen (NotDetected) Urine Methadone Screen (NotDetected) Ur Propoxyphene Screen (NotDetected) Ur Barbiturates Screen (NotDetected) U Tricyclic Antidepress (NotDetected) Ur Phencyclidine Scrn (NotDetected) Ur Amphetamines Screen (NotDetected) U Methamphetamines Scrn (NotDetected) U Benzodiazepines Scrn (NotDetected) Urine Cocaine Screen (NotDetected) U Marijuana (THC) Screen (NotDetected) Serum Alcohol mg/dL Influenza Type A (PCR) (Not Detectd) Influenza Type B (PCR) (Not Detectd) RSV (PCR) (Not Detectd) SARS-CoV-2 (PCR) (Not Detectd) Blood Type O Positive Blood Type Recheck O Pos Bld Type Recheck Status No Antibody Screen NEGATIVE Spec Expiration Date 08/05/2023 - 230608/02/23 08/02/23 08/02/23 Range/Units 07:07 07:07 07:07 WBC (3.8-10.6) k/uL RBC (4.30-5.90) m/uL Hgb (13.0-17.5) gm/dL Hct (39.0-53.0) % MCV (80.0-100.0) fL MCH (25.0-35.0) pg MCHC (31.0-37.0) g/dL RDW (11.5-15.5) % Plt Count (150-450) k/uL MPV Neutrophils % (Manual) % Band Neuts % (Manual) % Lymphocytes % (Manual) % Monocytes % (Manual) % Neutrophils # (Manual) (1.3-7.7) k/uL Lymphocytes # (Manual) (1.0-4.8) k/uL Monocytes # (Manual) (0-1.0) k/uL Nucleated RBCs (0-0) /100 WBC Manual Slide Review Anisocytosis PT (9.0-12.0) sec INR (<1.2) APTT (22.0-30.0) sec Sodium 137 (137-145) mmol/L Potassium 4.0 (3.5-5.1) mmol/L Chloride 107 (98-107) mmol/L Carbon Dioxide 18 L (22-30) mmol/L Anion Gap 12 mmol/L BUN 21 H (9-20) mg/dL Creatinine 1.58 H (0.66-1.25) mg/dL Est GFR (CKD-EPI)AfAm 45 (>60 ml/min/1.73 sqM) Est GFR (CKD-EPI)NonAf 39 (>60 ml/min/1.73 sqM) Glucose 93 (74-99) mg/dL Lactic Ac Sepsis Rflx Plasma Lactic Acid Zane 3.9 H* (0.7-2.0) mmol/L Calcium 8.9 (8.4-10.2) mg/dL Total Bilirubin 9.9 H (0.2-1.3) mg/dL Conjugated Bilirubin 5.0 H (0.0-0.3) mg/dL Unconjugated Bilirubin 2.4 H (0.0-1.1) mg/dL Delta Bilirubin 2.5 H (0.0-0.2) mg/dL AST 136 H (17-59) U/L ALT 78 H (4-49) U/L Alkaline Phosphatase 449 H (38-126) U/L Troponin I 0.119 H* (0.000-0.034) ng/mL Total Protein 6.5 (6.3-8.2) g/dL Albumin 2.5 L (3.5-5.0) g/dL Lipase 79 (23-300) U/L Urine Color Urine Appearance (Clear) Urine pH (5.0-8.0) Ur Specific [place] (1.001-1.035) Urine Protein (Negative) Urine Glucose (UA) (Negative) Urine Ketones (Negative) Urine Blood (Negative) Urine Nitrite (Negative) Urine Bilirubin (Negative) Urine Urobilinogen (<2.0) mg/dL Ur Leukocyte Esterase (Negative) Urine RBC (0-5) /hpf Urine WBC (0-5) /hpf Urine WBC Clumps (None) /hpf Urine Bacteria (None) /hpf Hyaline Casts (0-2) /lpf Urine Mucus (None) /hpf Urine Opiates Screen (NotDetected) Ur Oxycodone Screen (NotDetected) Urine Methadone Screen (NotDetected) Ur Propoxyphene Screen (NotDetected) Ur Barbiturates Screen (NotDetected) U Tricyclic Antidepress (NotDetected) Ur Phencyclidine Scrn (NotDetected) Ur Amphetamines Screen (NotDetected) U Methamphetamines Scrn (NotDetected) U Benzodiazepines Scrn (NotDetected) Urine Cocaine Screen (NotDetected) U Marijuana (THC) Screen (NotDetected) Serum Alcohol <10 mg/dL Influenza Type A (PCR) (Not Detectd) Influenza Type B (PCR) (Not Detectd) RSV (PCR) (Not Detectd) SARS-CoV-2 (PCR) (Not Detectd) Blood Type Blood Type Recheck Bld Type Recheck Status Antibody Screen Spec Expiration Date 08/02/23 08/02/23 08/02/23 Range/Units 07:31 07:48 08:48 WBC (3.8-10.6) k/uL RBC (4.30-5.90) m/uL Hgb (13.0-17.5) gm/dL Hct (39.0-53.0) % MCV (80.0-100.0) fL MCH (25.0-35.0) pg MCHC (31.0-37.0) g/dL RDW (11.5-15.5) % Plt Count (150-450) k/uL MPV Neutrophils % (Manual) % Band Neuts % (Manual) % Lymphocytes % (Manual) % Monocytes % (Manual) % Neutrophils # (Manual) (1.3-7.7) k/uL Lymphocytes # (Manual) (1.0-4.8) k/uL Monocytes # (Manual) (0-1.0) k/uL Nucleated RBCs (0-0) /100 WBC Manual Slide Review Anisocytosis PT (9.0-12.0) sec INR (<1.2) APTT (22.0-30.0) sec Sodium (137-145) mmol/L Potassium (3.5-5.1) mmol/L Chloride (98-107) mmol/L Carbon Dioxide (22-30) mmol/L Anion Gap mmol/L BUN (9-20) mg/dL Creatinine (0.66-1.25) mg/dL Est GFR (CKD-EPI)AfAm (>60 ml/min/1.73 sqM) Est GFR (CKD-EPI)NonAf (>60 ml/min/1.73 sqM) Glucose (74-99) mg/dL Lactic Ac Sepsis Rflx Y Plasma Lactic Acid Zane (0.7-2.0) mmol/L Calcium (8.4-10.2) mg/dL Total Bilirubin (0.2-1.3) mg/dL Conjugated Bilirubin (0.0-0.3) mg/dL Unconjugated Bilirubin (0.0-1.1) mg/dL Delta Bilirubin (0.0-0.2) mg/dL AST (17-59) U/L ALT (4-49) U/L Alkaline Phosphatase (38-126) U/L Troponin I (0.000-0.034) ng/mL Total Protein (6.3-8.2) g/dL Albumin (3.5-5.0) g/dL Lipase (23-300) U/L Urine Color Urine Appearance (Clear) Urine pH (5.0-8.0) Ur Specific [place] (1.001-1.035) Urine Protein (Negative) Urine Glucose (UA) (Negative) Urine Ketones (Negative) Urine Blood (Negative) Urine Nitrite (Negative) Urine Bilirubin (Negative) Urine Urobilinogen (<2.0) mg/dL Ur Leukocyte Esterase (Negative) Urine RBC (0-5) /hpf Urine WBC (0-5) /hpf Urine WBC Clumps (None) /hpf Urine Bacteria (None) /hpf Hyaline Casts (0-2) /lpf Urine Mucus (None) /hpf Urine Opiates Screen Not Detected (NotDetected) Ur Oxycodone Screen Not Detected (NotDetected) Urine Methadone Screen Not Detected (NotDetected) Ur Propoxyphene Screen Not Detected (NotDetected) Ur Barbiturates Screen Not Detected (NotDetected) U Tricyclic Antidepress Not Detected (NotDetected) Ur Phencyclidine Scrn Not Detected (NotDetected) Ur Amphetamines Screen Not Detected (NotDetected) U Methamphetamines Scrn Not Detected (NotDetected) U Benzodiazepines Scrn Not Detected (NotDetected) Urine Cocaine Screen Not Detected (NotDetected) U Marijuana (THC) Screen Not Detected (NotDetected) Serum Alcohol mg/dL Influenza Type A (PCR) Not Detected (Not Detectd) Influenza Type B (PCR) Not Detected (Not Detectd) RSV (PCR) Not Detected (Not Detectd) SARS-CoV-2 (PCR) Not Detected (Not Detectd) Blood Type Blood Type Recheck Bld Type Recheck Status Antibody Screen Spec Expiration Date 08/02/23 Range/Units 08:48 WBC (3.8-10.6) k/uL RBC (4.30-5.90) m/uL Hgb (13.0-17.5) gm/dL Hct (39.0-53.0) % MCV (80.0-100.0) fL MCH (25.0-35.0) pg MCHC (31.0-37.0) g/dL RDW (11.5-15.5) % Plt Count (150-450) k/uL MPV Neutrophils % (Manual) % Band Neuts % (Manual) % Lymphocytes % (Manual) % Monocytes % (Manual) % Neutrophils # (Manual) (1.3-7.7) k/uL Lymphocytes # (Manual) (1.0-4.8) k/uL Monocytes # (Manual) (0-1.0) k/uL Nucleated RBCs (0-0) /100 WBC Manual Slide Review Anisocytosis PT (9.0-12.0) sec INR (<1.2) APTT (22.0-30.0) sec Sodium (137-145) mmol/L Potassium (3.5-5.1) mmol/L Chloride (98-107) mmol/L Carbon Dioxide (22-30) mmol/L Anion Gap mmol/L BUN (9-20) mg/dL Creatinine (0.66-1.25) mg/dL Est GFR (CKD-EPI)AfAm (>60 ml/min/1.73 sqM) Est GFR (CKD-EPI)NonAf (>60 ml/min/1.73 sqM) Glucose (74-99) mg/dL Lactic Ac Sepsis Rflx Plasma Lactic Acid Zane (0.7-2.0) mmol/L Calcium (8.4-10.2) mg/dL Total Bilirubin (0.2-1.3) mg/dL Conjugated Bilirubin (0.0-0.3) mg/dL Unconjugated Bilirubin (0.0-1.1) mg/dL Delta Bilirubin (0.0-0.2) mg/dL AST (17-59) U/L ALT (4-49) U/L Alkaline Phosphatase (38-126) U/L Troponin I (0.000-0.034) ng/mL Total Protein (6.3-8.2) g/dL Albumin (3.5-5.0) g/dL Lipase (23-300) U/L Urine Color Dark Yellow Urine Appearance Cloudy (Clear) Urine pH 6.0 (5.0-8.0) Ur Specific [place] 1.015 (1.001-1.035) Urine Protein 1+ H (Negative) Urine Glucose (UA) Negative (Negative) Urine Ketones Negative (Negative) Urine Blood Small H (Negative) Urine Nitrite Negative (Negative) Urine Bilirubin 2+ H (Negative) Urine Urobilinogen 2.0 (<2.0) mg/dL Ur Leukocyte Esterase Large H (Negative) Urine RBC 19 H (0-5) /hpf Urine WBC >182 H (0-5) /hpf Urine WBC Clumps Rare H (None) /hpf Urine Bacteria Rare H (None) /hpf Hyaline Casts 6 H (0-2) /lpf Urine Mucus Rare H (None) /hpf Urine Opiates Screen (NotDetected) Ur Oxycodone Screen (NotDetected) Urine Methadone Screen (NotDetected) Ur Propoxyphene Screen (NotDetected) Ur Barbiturates Screen (NotDetected) U Tricyclic Antidepress (NotDetected) Ur Phencyclidine Scrn (NotDetected) Ur Amphetamines Screen (NotDetected) U Methamphetamines Scrn (NotDetected) U Benzodiazepines Scrn (NotDetected) Urine Cocaine Screen (NotDetected) U Marijuana (THC) Screen (NotDetected) Serum Alcohol mg/dL Influenza Type A (PCR) (Not Detectd) Influenza Type B (PCR) (Not Detectd) RSV (PCR) (Not Detectd) SARS-CoV-2 (PCR) (Not Detectd) Blood Type Blood Type Recheck Bld Type Recheck Status Antibody Screen Spec Expiration Date - EKG Data EKG Comments: 12-lead Electrocardiogram Interpretation Note EKG was reviewed and interpreted by myself. 12-lead ECG performed at 0826 is interpreted by me as revealing atrial fibrillation, rate controlled with chronic right bundle-branch block morphology at a rate of 93 beats per minute. QRS duration is 160 ms, QTc is 446 milliseconds.. There were no ST or T wave abnormalities to suggest myocardial ischemia or injury. R wave progression across the precordium was delayed. By my interpretation this EKG is non- diagnostic for acute ischemia. (Dmitri Shah) Critical Care Time Critical Care Time: Yes Total Critical Care Time: 55 <Dmitri Shah - Last Filed: 08/02/23 15:57> Disposition <Johan Barajas - Last Filed: 08/02/23 06:56> Time of Disposition: 09:45 - Out of Hospital Transfer - Req. Specs Out of Hospital Transfer - Requested Specifics: Medical ICU (Transferred to [facility] for continuity of care and GI eval as we do not have GI services.) <Dmitri Shah - Last Filed: 08/02/23 15:57> Clinical Impression: Fall, Weakness, Jaundice, Septic shock, UTI (urinary tract infection), Ascending cholangitis, History of biliary stent insertion, Liver cancer, Hyperbilirubinemia, Dehydration, Elevated troponin, Atrial fibrillation with normal ventricular rate Disposition: OTHER INSTITUTION NOT DEFINED Condition: Serious Referrals: Nonstaff,Physician [Primary Care Provider] - 1-2 days
[2023-08-02 07:27] LABS: ALT 78 U/L (4-49); AST 136 U/L (17-59); African American GFR (CKD) 45 (>60 ml/min/1.73 sqM); Albumin 2.5 g/dL (3.5-5.0); Alcohol <10 mg/dL; Alkaline Phosphatase 449 U/L (38-126); Anion Gap 12 mmol/L; Bilirubin, Delta 2.5 mg/dL (0.0-0.2); Bilirubin,Unconjugated 2.4 mg/dL (0.0-1.1); Blood Urea Nitrogen 21 mg/dL (9-20); Calcium 8.9 mg/dL (8.4-10.2); Carbon Dioxide 18 mmol/L (22-30); Chloride 107 mmol/L (98-107); Glucose 93 mg/dL (74-99); Lipase 79 U/L (23-300); Non-African American GFR(CKD) 39 (>60 ml/min/1.73 sqM); Sodium 137 mmol/L (137-145); Total Bilirubin 9.9 mg/dL (0.2-1.3); Total Protein 6.5 g/dL (6.3-8.2)
[2023-08-02 07:30] LABS: Anisocytosis Slight; HCT 36.2 % (39.0-53.0); HGB 11.7 gm/dL (13.0-17.5); MCH 28.7 pg (25.0-35.0); MCHC 32.3 g/dL (31.0-37.0); MCV 88.8 fL (80.0-100.0); Mean Platelet Volume 8.4; Platelet Count 117 k/uL (150-450); RBC 4.08 m/uL (4.30-5.90); RDW 16.7 % (11.5-15.5); WBC 10.7 k/uL (3.8-10.6)
[2023-08-02] MEDS ORDERED: VANCOMYCIN IV PER PHARMACY 1 EACH MISC MISCELLANE PRN (07:33)
[2023-08-02] MEDS ORDERED: PIPERACILLIN-TAZOBACTAM 3.375 GM in SODIUM CHLORIDE 0.9% 100 ML IVPB STA (07:36)
[2023-08-02] MEDS ORDERED: VANCOMYCIN 1,500 MG in SODIUM CHLORIDE 0.9% 500 ML 500 ML IVPB STA (07:39)
[2023-08-02 07:44] LABS: INR 1.5 (<1.2); Partial Thromboplastin Time 26.3 sec (22.0-30.0); Prothrombin Time 15.3 sec (9.0-12.0)
--- NOTE | 2023-08-02 08:16 | XR ---
EXAMINATION TYPE: XR chest 1V portable DATE OF EXAM: 08/02/2023 COMPARISON: 01/27/2019 HISTORY: Pain TECHNIQUE: Single frontal view of the chest is obtained. FINDINGS: There is no focal air space opacity, pleural effusion, or AC joint arthropathy. Sternotomy wires. Hyperexpansion of the lungs suggestive of COPD. Pneumothorax seen. The cardiac silhouette si ze is within normal limits. The osseous structures are intact. IMPRESSION: No acute process.
--- NOTE | 2023-08-02 08:21 | XR ---
EXAMINATION TYPE: XR pelvis AP view DATE OF EXAM: 08/02/2023 COMPARISON: NONE HISTORY: Pain The osseous structures are intact and the joint spaces are preserved. No acute fracture is seen. Vi sualized bowel gas pattern is nonspecific. Postsurgical changes lower lumbosacral spine. Diffuse ost eopenia with bilateral IMPRESSION: 1. No definite acute fracture. Severe bilateral hip arthropathy.
[2023-08-02] MEDS ORDERED: NOREPINEPHRINE 4 MG in SODIUM CHLORIDE 0.9% 250 ML IV ONE (08:29)
--- NOTE | 2023-08-02 08:41 | US ---
EXAMINATION TYPE: US gallbladder DATE OF EXAM: 08/02/2023 COMPARISON: 03/21/2023 CLINICAL INDICATION: Male, 87 years old with history of jaundice; jaundice TECHNIQUE: Multiple sonographic images of the right upper quadrant are obtained. FINDINGS: EXAM MEASUREMENTS: Liver Length: 13.9 cm Gallbladder Wall: 0.2 cm CBD: 0.4 cm Right Kidney: 12.6x6.3x5.9 cm SCOOPER NOTES: Pancreas: duct dilated to 0.14cm, two anechoic areas again seen head: 1.1x1.0x1.6cm tail: 1.6x2.0x2.0cm Liver: heterogenous, slight nodularity Gallbladder: shadowing foci measuring up to 1.4cm, tumefactive sludge Evidence for sonographic Ryder's sign: No CBD: wnl, slightly limited evaluation Right Kidney: wnl exam slightly limited by body habitus, bowel gas and rib shadows IMPRESSION: 1. Mild dilation of the pancreatic duct and there are 2 hypoechoic lesions involving the head of the pancreas. Pancreatic mass is in the differential diagnosis recommend CT scan. 2. Heterogeneous and nodular liver correlate for hepatocellular disease. 3. Gallbladder sludge and gallstones with no evidence of gallbladder wall thickening. Underlying gall bladder mass not excluded.
--- NOTE | 2023-08-02 08:45 | CT ---
EXAMINATION TYPE: CT brain cspine wo con CT DLP: 1481.7 mGycm, Automated exposure control for dose reduction was used. DATE OF EXAM: 08/02/2023 7:24 AM COMPARISON: 02/05/2019 CLINICAL INDICATION:Male, 87 years old with history of trauma; Trauma, priority 2. Fall, on thinners TECHNIQUE: Brain: Multiple axial CT images of the brain were obtained without IV contrast. Cspine: Axial CT images from the skull base to the inferior aspect of T2 we obtained without intraven ous contrast. Coronal and sagittal reformatted images were also reviewed. FINDINGS: Brain: Extra-axial spaces: No abnormal extra-axial fluid collections. Ventricular system: Dilatation in proportion to cerebral atrophy. Cerebral parenchyma: Cerebral atrophy. No acute intraparenchymal hemorrhage or mass effect. The pate -white junction is well differentiated. Scattered hypoattenuating areas are seen within the white mat ter. Cerebellum: Unremarkable. Mass effect: No evidence of midline shift. Intracranial vasculature: Atherosclerotic calcifications of the intracranial vessels. Soft tissues: Normal. Calvarium/osseous structures: No depressed skull fracture. Paranasal sinuses and mastoid air cells: Clear. Visualized orbits: Bilateral aphakia Cervical spine: Fracture: None. Osseous structures: Multilevel degenerative disc disease changes with endplate spurring and disc oste ophyte complex's. Vertebral alignment: Within normal limits. Spinal canal/Neural Foramina: No evidence of significant spinal canal narrowing. No evidence for sign ificant neural foraminal stenosis. Neck soft tissues: Prevertebral soft tissues are within normal limits. Other: The airway is patent. The lung apices are clear. Calcifications of the nuchal ligament. IMPRESSION: 1. No acute intracranial process. 2. Nonspecific white matter changes, likely secondary to chronic small vessel ischemic disease. 3. No evidence of cervical spine fracture. 4. Mild multilevel degenerative disc disease.
--- NOTE | 2023-08-02 08:53 | CT ---
EXAMINATION TYPE: CT abdomen pelvis wo con CT DLP: 825.5 mGycm, Automated exposure control for dose reduction was used. DATE OF EXAM: 08/02/2023 7:26 AM COMPARISON: CT abdomen pelvis most recent from 12/20/2018 CLINICAL INDICATION:Male, 87 years old with history of fall, jaundice; Fall, History of liver cancer, jaundice TECHNIQUE: Axial CT of the abdomen and pelvis. Sagittal and coronal reformats were created on a [employer] workstation. Contrast used: , (none if empty) Oral contrast used: without Oral Contrast (none if empty) FINDINGS: LOWER CHEST: Trace right pleural effusion. ABDOMEN LIVER: Few scattered low density lesions throughout the liver remain. The largest most pronounced in the right hepatic lobe measuring 4.6 x 4.8 cm. GALLBLADDER AND BILE DUCTS: There are [address] with the distal portion in the duoden um and the proximal within the intrahepatic biliary system. High density gallstones present in the ga llbladder lumen. Evaluation of ductal dilatation is limited without IV contrast. PANCREAS: Pancreatic calcifications throughout the parenchyma. Is at least 2 cystic lesions identifie d the first measuring 2.0 x 1.4 cm in the neck/body region and in the tail region measuring up to 2.1 cm SPLEEN: Unremarkable. ADRENAL GLANDS: Unremarkable. KIDNEYS AND URETERS: No evidence of hydronephrosis or obstructive renal calculus. Nonobstructive righ t 2 mm calculus. High density left renal lesion measuring 36 Hounsfield units and up to 11 mm. PELVIS BLADDER: Unremarkable REPRODUCTIVE: Prostate is enlarged in size measuring 6.1 cm in transverse dimension. ABDOMEN & PELVIS STOMACH AND BOWEL: No evidence of bowel obstruction. There is a large amount of stool throughout the colon particularly the cecum. PERITONEUM/RETROPERITONEUM: No evidence of pneumoperitoneum or free fluid. VASCULATURE: No evidence of aortic aneurysm. MUSCULOSKELETAL: No acute osseous abnormalities. Moderate disc degeneration changes are present throu ghout the thoracolumbar spine. Postsurgical changes to the lower spine with hardware in place. Hardwa re appears intact. LYMPH NODES: No gross evidence for lymphadenopathy. SOFT TISSUE/ABDOMINAL WALL: Fat-containing umbilical hernia. IMPRESSION: 1. Biliary stents appear in appropriate position No evidence for ductal dilatation given limitation of noncontrast CT. A HIDA scan could evaluate for patency of the stents. 2. Scattered low-density areas within the liver most pronounced in the superior segment of the right hepatic lobe measuring up to 4.8 cm suspicious for liver carcinoma given history. This is incomplete ly evaluated without IV contrast. 3. Evidence of chronic pancreatitis with pancreatic neck/body and tail cystic lesions. Complete eval uation with MRI pancreatic mass protocol should be considered. 4. Trace or pleural fusion. 5. Prostatomegaly, correlate serum PSA. 6. Large stool burden throughout the colon. 7. Indeterminate left renal lesion. This can be further evaluated with MRI renal mass protocol if cl inically warranted. Findings likely representing hemorrhagic/proteinaceous cyst. 8. Nonobstructing right renal 2 mm calculus. 9. Cholelithiasis.
[2023-08-02 09:17] LABS: Appearance,Urine Cloudy (Clear); Bacteria,Urine Rare /hpf; Bilirubin,Urine 2+ (Negative); Blood,Urine Small (Negative); Color,Urine Dark Yellow; Glucose,Urine (UA) Negative (Negative); Hyaline Casts,Urine 6 /lpf (0-2); Ketones,Urine Negative (Negative); Leukocyte Esterase,Urine Large (Negative); Mucus,Urine Rare /hpf; Nitrite,Urine Negative (Negative); Protein,Urine 1+ (Negative); RBC,Urine 19 /hpf (0-5); Specific Gravity,Urine 1.015 (1.001-1.035); WBC,Urine >182 /hpf (0-5)
[2023-08-02 09:19] VITALS: BP 90/60; PULSE 88; RESP 18
[2023-08-02 09:21] LABS: Amphetamine Screen,Urine Not Detected (NotDetected); Barbiturate Screen,Urine Not Detected (NotDetected); Benzodiazepines Screen,Urine Not Detected (NotDetected); Cocaine Screen,Urine Not Detected (NotDetected); Methadone Screen, Urine Not Detected (NotDetected); Opiate Screen,Urine Not Detected (NotDetected); Oxycodone Screen, Urine Not Detected (NotDetected); Phencyclidine Screen,Urine Not Detected (NotDetected); Tricyclic Antidepressant,Urine Not Detected (NotDetected); Urn Cannabinoid Scrn Not Detected (NotDetected)
[2023-08-02 09:51] LABS: Band Neutrophils % 7 %; Lymphocytes # (M) 0.54 k/uL (1.0-4.8); Monocytes # (M) 0.54 k/uL (0-1.0); Neutrophils % (M) 83 %; Nucleated Red Blood Cells 0 /100 WBC (0-0); Total Cells Counted 100
[2023-08-02] MEDS ORDERED: PIPERACILLIN-TAZOBACTAM 3.375 GM in SODIUM CHLORIDE 0.9% 100 ML IVPB SCH (16:00)
[2023-08-03] MEDS ORDERED: VANCOMYCIN 1,500 MG in SODIUM CHLORIDE 0.9% 500 ML 500 ML IVPB SCH (09:00)
== END 2023-08-02 11:40 | disposition other institution (70) ==
LOC: EC 06:40
DX: N39.0 Urinary tract infection, site not specified (principal); I48.91 Unspecified atrial fibrillation; R53.1 Weakness; R17 Unspecified jaundice; R65.21 Severe sepsis with septic shock; K83.09 Other cholangitis; Z96.89 Presence of other specified functional implants; E80.6 Other disorders of bilirubin metabolism; E86.0 Dehydration; R79.89 Other specified abnormal findings of blood chemistry; K21.9 Gastro-esophageal reflux disease without esophagitis; E78.5 Hyperlipidemia, unspecified; I10 Essential (primary) hypertension; E07.9 Disorder of thyroid, unspecified; Z79.890 Hormone replacement therapy; Z79.899 Other long term (current) drug therapy; Z79.01 Long term (current) use of anticoagulants
CPT/HCPCS: 36415; 93005; 86900; 86901; 80053; 82248; 83605; 83690; 84484; 85025; 85610; 85730; 86850; 81001; 87040; 80306; 87636; 72170; 71045; 76705; 72125; 70450; 74176; 99291; 96365; 96367; 96368; 96361; 36556; G0480; J2543; J3370; 80320; 87086